=== PATIENT | male | born 1940 | race Caucasian/White ===

== ENCOUNTER → 2016-12-21 | Outpatient (CLI) | payer OTHER ==
[~2016-12-21] MED LIST: ASPCH81X PO; CHOL2000 PO; CLOP1TAB5 PO; CYAN100T PO; DUTA0.5C PO; GLIM4TAB2 PO; GLUC10007 PO; LEVO25TA PO; QUIN10TA2 PO; ROSU5TAB PO; TAMS0.4C38 PO; UBIQ1CAP8 PO
== END | disposition home or self-care (01) ==
LOC: C.LAB 11:26
PROVIDERS: ATTEND Urology
DX: C61 Malignant neoplasm of prostate (principal)

== ENCOUNTER → 2017-03-08 | Outpatient (CLI) | payer OTHER ==
[~2017-03-08] MED LIST changes: +CYAN1CAP3 PO; +DOXY50CA26 PEG; +FLUT0.15 NAE
[2017-03-08 12:55] LABS: ESTIMATED AVERAGE GLUCOSE 148 mg/dl; HA1C FLAG Normal (Normal)
[2017-03-08 13:07] LABS: CHOLESTEROL/HDL RATIO 6.1
== END | disposition home or self-care (01) ==
LOC: C.LAB 10:38
PROVIDERS: ATTEND Nurse Practitioner Adult Health
DX: E11.22 Type 2 diabetes mellitus with diabetic chronic kidney disease (principal)

== ENCOUNTER 2017-03-21 15:18 | Emergency (ER) | payer OTHER ==
[~2017-03-21] VITALS: Ht 180.3 cm; Wt 99.2 kg
[~2017-03-21 15:18] MED LIST changes: -CYAN100T PO; -CYAN1CAP3 PO; -DOXY50CA26 PEG; -FLUT0.15 NAE; -GLUC10007 PO; -ROSU5TAB PO
[2017-03-21 15:20] VITALS: TEMP 36.2; Ht 180.3 cm; Wt 99.2 kg
[2017-03-21] MEDS ORDERED: CYAN100T PO (15:36)
[2017-03-21] MEDS ORDERED: GLUC10007 PO (15:36)
[2017-03-21] MEDS ORDERED: ROSU5TAB PO (15:36)
--- NOTE | 2017-03-21 15:49 | EMERGENCY ROOM VISIT NOTE ---
History Report prepared by Kiki: Camelia Coyle Under the Supervision of: Dr. Adan Rueda M.D. 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 He stood up and lost his balance, causing him to fall backwards. He hit the back of his head on a cabinet when he fell and has a lump there. The patient is currently being treated for a sinus infection. He states that he was having a sinus headache before his fall today, but his headache has worsened after hitting his head. He does report feeling "a little weak" but did not eat much today. He is on blood thinners and takes Plavix and aspirin. The patient denies LOC, neck pain, chest pain, shortness of breath, abdominal pain, numbness, and pain or swelling in his legs. He denies any other injury from his fall today. He rates his current pain as a 1/10 in severity. 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 A total of 10 systems reviewed and were otherwise negative. Past Medical & Surgical Medical Problems: (1) Diabetes (2) Hemorrhagic cystitis (3) Hemorrhagic cystitis (4) Hemorrhagic cystitis (5) Hypercholesteremia (6) Prostate cancer (7) TIA (transient ischemic attack) Old medical records were reviewed. Nurse's notes were reviewed and I agree with. Family History FHx: cancer Social History Smoking Status: Former Smoker Marital Status: Housing Status: lives with family Occupation Status: retired Current/Historical Medications Scheduled Aspirin (Aspirin Chewable), 81 MG PO QAM Cholecalciferol (Vitamin D3), 2,000 INTER.UNIT PO QAM Clopidogrel Bisulfate (Plavix), 75 MG PO QPM Cyanocobalamin (Vitamin B-12), 100 MCG PO DAILY Dutasteride (Avodart), 0.5 MG PO HS Glimepiride (Glimepiride), 4 MG PO BID Glucosamine Sulfate (Glucosamine), 1,000 MG PO BID Levothyroxine Sodium (Synthroid), 25 MCG PO QAM Quinapril Hcl (Accupril), 10 MG PO QPM Rosuvastatin Calcium (Crestor), 5 MG PO WK Tamsulosin Hcl (Flomax), 0.4 MG PO HS Ubiquinol (Ubiquinol), 1 CAP PO QPM Allergies Coded Allergies: Penicillins (Verified Allergy, Mild, RASH, 03/21/17) Sulfa Drugs (Verified Allergy, Mild, RASH, 03/21/17) Simvastatin (Unverified Allergy, Unknown, MUSCLE WEAKNESS, 03/21/17) Statins (Verified Allergy, Unknown, MUSCLE WEAKNESS, 03/21/17) Rosuvastatin (Verified Adverse Reaction, Unknown, muscle and joint pain and foggy in my head, , 03/21/17) they changed the dose Physical Exam Vital Signs Date Time Temp Pulse Resp B/P Pulse Ox O2 Delivery O2 Flow Rate FiO2 03/21/17 16:41 66 18 153/67 99 Room Air 03/21/17 15:20 36.2 74 18 154/80 96 Room Air Physical Exam General: Well developed well nourished non-ill appearing older male in no acute distress, breathing comfortably on room air. Normal speech HEENT: Normal cephalic, there is a moderate sized hematoma in the central occipital area that is minimally tender. Pupils are equal round and reactive to light. Extraocular movements are intact. Oropharynx is pink with moist mucous membranes. No swelling of the mouth lips or tongue. Neck: Supple with a midline trachea. No meningeal signs or stiffness, no JVD or bruits. No Stridor. Chest: Clear to auscultation bilaterally. No wheezes or rhonchi. No increased work of breathing. Heart: regular rate and rhythm. Abdomen: Soft nontender, nondistended without rebound guarding or rigidity. Extremities: No cyanosis clubbing or edema. No calf tenderness or assymetry Spine/Back. Non tender to palpation. No CVA tenderness Skin: Good turgor without rashes. Neurologic exam: Cranial nerves two through 12 are intact. Motor and sensation are intact and symmetrical throughout. GCS 15. Medical Decision & Procedures ER Provider Diagnostic Interpretation: Radiology results as stated below per my review and radiologist interpretation: CT SCAN OF THE BRAIN WITHOUT IV CONTRAST CLINICAL HISTORY: Trauma. COMPARISON STUDY: MRI of the brain dated 12/21/2015. TECHNIQUE: Unenhanced axial CT scan of the brain is performed from the vertex to the skull base. CT DOSE: 823.94 mGycm FINDINGS: Brain parenchyma: There are age-related involutional changes noting mild subcortical and periventricular microangiopathic change. There is no hemorrhage, mass effect, or evidence of acute territorial ischemia by CT criteria. A tiny chronic lacunar infarct is noted in the right basal ganglia. Nathan-white matter is preserved. No extra-axial fluid collection is seen. Ventricles, sulci, cisterns: Prominent secondary to involutional change. Cavum septum pellucidum is incidentally noted. Intracranial vasculature: There is atherosclerotic calcification of the cavernous carotid and vertebral arteries. Calvarium: The skeletal structures are osteopenic. There is no depressed femoral fracture. Soft tissues: There is an occipital scalp contusion. Sinuses and mastoids: The visualized paranasal sinuses are clear. The mastoid air cells are well pneumatized. Orbits: The bony orbits are grossly intact. IMPRESSION: There is no hemorrhage, mass effect, or evidence of acute territorial ischemia by CT criteria. Electronically signed by: Gordy Dominguez M.D. 03/21/2017 4:30 PM Dictated Date/Time: 03/21/2017 4:[address] SCAN OF THE CERVICAL SPINE CLINICAL HISTORY: Head injury. Trauma. COMPARISON STUDY: No priors. TECHNIQUE: CT scan of the cervical spine is performed from the skull base to the upper thoracic spine. Images are reviewed in the axial, sagittal, and coronal planes. IV contrast was not administered for this examination. CT DOSE: 529.82 mGycm FINDINGS: Skeletal structures: The skeletal structures are osteopenic. There is no evidence of fracture or subluxation involving the cervical spine. Vertebral body height and alignment are maintained. The odontoid process and lateral masses are intact. The atlantoaxial articulation is preserved noting productive degenerative change. The spinous processes appear intact. Anterior osteophytes are seen throughout. Degenerative endplate sclerosis is noted at C6-C7. There is moderate multilevel cervical spondylosis. Uncovertebral and facet arthropathy contribute to neural foraminal narrowing at several levels. Intervertebral discs: There is advanced degenerative disc space narrowing seen at C6-C7. Only mild degenerative disc space narrowing is seen at the remaining cervical levels. Central canal: Small posterior disc osteophyte complexes at C3-C4, C4-C5, and C6-C7 may contribute to mild acquired compromise the central canal. Soft tissues: The prevertebral and paraspinous soft tissues are within normal limits. Atherosclerotic calcification is noted in the carotid bulbs. Calvarium: The visualized calvarium at the skull base appears intact. Brain parenchyma: Partially visualized brain parenchyma the skull base is within normal limits. Sinuses and mastoids: The visualized paranasal sinuses are clear. The mastoid air cells are well pneumatized. Lung apices: Clear as visualized. IMPRESSION: 1. There is no evidence of fracture or subluxation involving the cervical spine. 2. Osteopenia and spondylotic change as above. Electronically signed by: Gordy Dominguez M.D. 03/21/2017 4:22 PM Dictated Date/Time: 03/21/2017 4:19 PM Laboratory Results 03/21/17 15:49 Red Blood Count 4.16, Mean Corpuscular Volume 95.9, Mean Corpuscular Hemoglobin 32.7, Mean Corpuscular Hemoglobin Concent 34.1, Mean Platelet Volume 9.6, Neutrophils (%) (Auto) 71.0, Lymphocytes (%) (Auto) 13.4, Monocytes (%) (Auto) 13.7, Eosinophils (%) (Auto) 1.5, Basophils (%) (Auto) 0.2, Neutrophils # (Auto ) 7.11, Lymphocytes # (Auto) 1.34, Monocytes # (Auto) 1.37, Eosinophils # (Auto ) 0.15, Basophils # (Auto) 0.02 03/21/17 15:49 Test 03/21/17 15:49 03/21/17 15:52 White Blood Count 10.01 K/uL (4.8-10.8) Red Blood Count 4.16 M/uL (4.7-6.1) Hemoglobin 13.6 g/dL (14.0-18.0) Hematocrit 39.9 % (42-52) Mean Corpuscular Volume 95.9 fL (80-100) Mean Corpuscular Hemoglobin 32.7 pg (25-34) Mean Corpuscular Hemoglobin Concent 34.1 g/dl (32-36) Platelet Count 212 K/uL (130-400) Mean Platelet Volume 9.6 fL (7.4-10.4) Neutrophils (%) (Auto) 71.0 % Lymphocytes (%) (Auto) 13.4 % Monocytes (%) (Auto) 13.7 % Eosinophils (%) (Auto) 1.5 % Basophils (%) (Auto) 0.2 % Neutrophils # (Auto) 7.11 K/uL (1.4-6.5) Lymphocytes # (Auto) 1.34 K/uL (1.2-3.4) Monocytes # (Auto) 1.37 K/uL (0.11-0.59) Eosinophils # (Auto) 0.15 K/uL (0-0.5) Basophils # (Auto) 0.02 K/uL (0-0.2) RDW Standard Deviation 45.8 fL (36.4-46.3) RDW Coefficient of Variation 13.1 % (11.5-14.5) Immature Granulocyte % (Auto) 0.2 % Immature Granulocyte # (Auto) 0.02 K/uL (0.00-0.02) Prothrombin Time 10.3 SECONDS (9.0-12.0) Prothromb Time International Ratio 1.0 (0.9-1.1) Activated Partial Thromboplast Time 26.6 SECONDS (21.0-31.0) Partial Thromboplastin Ratio 1.0 Anion Gap 6.0 mmol/L (3-11) Est Creatinine Clear Calc Drug Dose 54.7 ml/min Estimated GFR () 56.6 Estimated GFR (Non- 48.8 BUN/Creatinine Ratio 18.7 (10-20) Calcium Level 8.9 mg/dl (8.5-10.1) Bedside Troponin I 0.000 ng/ml (0-0.045) Laboratory studies as stated above per my review. ECG Indication: weakness Rate (beats per minute): 67 Rhythm: normal sinus Findings: 1st degree AV block, RBBB (incomplete), other (Poor R-wave progression) Comparison ECG Date: no prior available ED Course 1530: Past medical records reviewed. The patient was evaluated in room C10, and a complete history and physical examination were performed. 1634: I updated the patient on the results of his CT scan. 1708: I reassessed the patient at this time. He is feeling better and resting comfortably. I discussed the results and treatment plan with the patient. I answered all pertaining questions that he had. He expressed understanding and verbalized agreement. The patient will be discharged home. Medical Decision Differential diagnoses includes concussion, intracranial hemorrhage, cervical spine injury, arrhythmia, electrolyte or metabolic abnormality. This patient comes in as described above. He fell dizzy and stumbled backwards after bending over and hit his head. He is concerned as he is on Plavix. He has only a mild headache. He looks well besides having some moderate hematoma, . He has no neurologic deficits. He has not been vomiting. IV access established and blood work was obtained and a CAT scan of his head and neck as well as an EKG. He was reassessed frequently. Scans were unremarkable. Blood work was unremarkable he looks well . he is able ambulate without any difficulty. He has a normal neurologic exam. He is to rest and drink plenty of fluids return if: Increasing pain or problems, any new problems or concerns. He was happy with the plan and discharged to home. He should follow up with his regular doctor next couple days for recheck. Impression Primary Impression: Concussion Additional Impression: Scalp contusion Scribe Attestation The scribe's documentation has been prepared under my direction and personally reviewed by me in its entirety. I confirm that the note above accurately reflects all work, treatment, procedures, and medical decision making performed by me. Departure Information Dispostion Home / Self-Care Referrals Dick Adams M.D. (PCP) Forms HOME CARE DOCUMENTATION FORM, IMPORTANT VISIT INFORMATION Patient Instructions Concussion, My [facility] Additional Instructions Rest. Drink plenty of fluids. Return if: Worsening of symptoms, headache, difficulty walking, numbness weakness, fever chills, any new problems or concerns Follow-up with your doctor next 1-2 days for recheck. Avoid any situations where you could hit your head Problem Qualifiers Primary Impression: Concussion Encounter type: initial encounter Loss of consciousness presence/duration: without LOC Qualified Codes: S06.0X0A - Concussion without loss of consciousness, initial encounter
--- NOTE | 2017-03-21 16:24 | DIAGNOSTIC IMAGING REPORT ---
CT SCAN OF THE CERVICAL SPINE CLINICAL HISTORY: Head injury. Trauma. COMPARISON STUDY: No priors. TECHNIQUE: CT scan of the cervical spine is performed from the skull base to the upper thoracic spine. Images are reviewed in the axial, sagittal, and coronal planes. IV contrast was not administered for this examination. CT DOSE: 529.82 mGycm FINDINGS: Skeletal structures: The skeletal structures are osteopenic. There is no evidence of fracture or subluxation involving the cervical spine. Vertebral body height and alignment are maintained. The odontoid process and lateral masses are intact. The atlantoaxial articulation is preserved noting productive degenerative change. The spinous processes appear intact. Anterior osteophytes are seen throughout. Degenerative endplate sclerosis is noted at C6-C7. There is moderate multilevel cervical spondylosis. Uncovertebral and facet arthropathy contribute to neural foraminal narrowing at several levels. Intervertebral discs: There is advanced degenerative disc space narrowing seen at C6-C7. Only mild degenerative disc space narrowing is seen at the remaining cervical levels. Central canal: Small posterior disc osteophyte complexes at C3-C4, C4-C5, and C6-C7 may contribute to mild acquired compromise the central canal. Soft tissues: The prevertebral and paraspinous soft tissues are within normal limits. Atherosclerotic calcification is noted in the carotid bulbs. Calvarium: The visualized calvarium at the skull base appears intact. Brain parenchyma: Partially visualized brain parenchyma the skull base is within normal limits. Sinuses and mastoids: The visualized paranasal sinuses are clear. The mastoid air cells are well pneumatized. Lung apices: Clear as visualized. IMPRESSION: 1. There is no evidence of fracture or subluxation involving the cervical spine. 2. Osteopenia and spondylotic change as above. Electronically signed by: Gordy Dominguez M.D. 03/21/2017 4:22 PM Dictated Date/Time: 03/21/2017 4:19 PM
--- NOTE | 2017-03-21 16:32 | DIAGNOSTIC IMAGING REPORT ---
CT SCAN OF THE BRAIN WITHOUT IV CONTRAST CLINICAL HISTORY: Trauma. COMPARISON STUDY: MRI of the brain dated 12/21/2015. TECHNIQUE: Unenhanced axial CT scan of the brain is performed from the vertex to the skull base. CT DOSE: 823.94 mGycm FINDINGS: Brain parenchyma: There are age-related involutional changes noting mild subcortical and periventricular microangiopathic change. There is no hemorrhage, mass effect, or evidence of acute territorial ischemia by CT criteria. A tiny chronic lacunar infarct is noted in the right basal ganglia. Nathan-white matter is preserved. No extra-axial fluid collection is seen. Ventricles, sulci, cisterns: Prominent secondary to involutional change. Cavum septum pellucidum is incidentally noted. Intracranial vasculature: There is atherosclerotic calcification of the cavernous carotid and vertebral arteries. Calvarium: The skeletal structures are osteopenic. There is no depressed femoral fracture. Soft tissues: There is an occipital scalp contusion. Sinuses and mastoids: The visualized paranasal sinuses are clear. The mastoid air cells are well pneumatized. Orbits: The bony orbits are grossly intact. IMPRESSION: There is no hemorrhage, mass effect, or evidence of acute territorial ischemia by CT criteria. Electronically signed by: Gordy Dominguez M.D. 03/21/2017 4:30 PM Dictated Date/Time: 03/21/2017 4:22 PM
[2017-03-21 16:41] VITALS: BP 153/67; PULSE 66; O2SAT 99
[2017-03-21 16:56] LABS: BASO % 0.2 %; BASO ABS # 0.02 K/uL (0-0.2); COMPLETE YES; EOS % 1.5 %; HEMATOCRIT 39.9 % (42-52); IG% 0.2 %; LYMPH % 13.4 %; LYMPH ABS # 1.34 K/uL (1.2-3.4); MEAN CELL VOLUME 95.9 fL (80-100); MEAN CORPUSCULAR HEMOGLOBIN 32.7 pg (25-34); MEAN CORPUSCULAR HGB CONC 34.1 g/dl (32-36); MEAN PLATELET VOLUME 9.6 fL (7.4-10.4); MONO % 13.7 %; PLATELET COUNT 212 K/uL (130-400); RED BLOOD COUNT 4.16 M/uL (4.7-6.1); WHITE BLOOD COUNT 10.01 K/uL (4.8-10.8)
[2017-03-21 17:02] LABS: BUN/CREATININE RATIO 18.7 (10-20); CALCIUM 8.9 mg/dl (8.5-10.1); CREATININE 1.4 mg/dl (0.60-1.40); POTASSIUM 4.4 mmol/L (3.5-5.1)
[2017-03-21 17:08] LABS: PROTHROMBIN TIME (PATIENT) 10.3 SECONDS (9.0-12.0)
[2017-09-18] MEDS ORDERED: DOXY50CA26 PEG (10:23)
[2017-09-18] MEDS ORDERED: CYAN1CAP3 PO (10:23)
[2017-09-18] MEDS ORDERED: FLUT0.15 NAE (10:23)
== END 2017-03-21 17:25 | disposition home or self-care (01) ==
LOC: C.EDB 15:19 → C.EDC 17:25
DX: S00.03XA Contusion of scalp, initial encounter (principal); S06.0X0A Concussion without loss of consciousness, initial encounter; W01.0XXA Fall on same level from slipping, tripping and stumbling without subsequent striking against object, initial encounter; E11.9 Type 2 diabetes mellitus without complications; E78.00 Pure hypercholesterolemia, unspecified; Z86.73 Personal history of transient ischemic attack (TIA), and cerebral infarction without residual deficits; Z85.46 Personal history of malignant neoplasm of prostate; Z87.891 Personal history of nicotine dependence; Z79.82 Long term (current) use of aspirin; Z79.899 Other long term (current) drug therapy; Z88.0 Allergy status to penicillin; Z88.2 Allergy status to sulfonamides; Z88.8 Allergy status to other drugs, medicaments and biological substances; Z80.9 Family history of malignant neoplasm, unspecified

== ENCOUNTER → 2017-05-01 | Outpatient (CLI) | payer OTHER ==
[~2017-05-01] MED LIST changes: +CYAN100T PO; +CYAN1CAP3 PO; +DOXY50CA26 PEG; +FLUT0.15 NAE; +GLUC10007 PO; +ROSU5TAB PO
--- NOTE | 2017-05-06 12:33 | CODING QUERY MEDICAL NECESSITY ---
SUPPORTING DIAGNOSIS NEEDED Dr. Adams, A supporting diagnosis is required for the test/procedure performed on this patient in order for us to be reimbursed by the patient's insurance. Please provide a supporting diagnosis for the following test/procedure listed below next to the test name along with your signature. *If there is no additional diagnosis for this patient that would support the following test/procedure please document that below next to the test/procedure. Test(s)/Procedure(s) that require a supporting diagnosis: * ([id number]) VITAMIN D ASSAY DIAGNOSIS: * ([id number]) B12 VITAMIN LEVEL DIAGNOSIS: DATE OF SERVICE: 05/01/17 Provider Signature: Date: Thank you Abel Fernandez [facility] Information Management Once completed, please kindly fax back to [phone] For questions please call [phone]
== END | disposition home or self-care (01) ==
LOC: C.LAB 09:39
PROVIDERS: ATTEND Internal Medicine
DX: R53.83 Other fatigue (principal); C61 Malignant neoplasm of prostate

== ENCOUNTER → 2017-06-11 | Outpatient (CLI) | payer OTHER ==
[~2017-06-11] MED LIST changes: -CYAN1CAP3 PO; -DOXY50CA26 PEG; -FLUT0.15 NAE
[2017-06-11 12:24] LABS: BASO % 0.4 %; BASO ABS # 0.02 K/uL (0-0.2); COMPLETE YES; EOS % 2.1 %; HEMATOCRIT 42.1 % (42-52); IG% 0.2 %; LYMPH % 25.9 %; LYMPH ABS # 1.35 K/uL (1.2-3.4); MEAN CORPUSCULAR HEMOGLOBIN 32.5 pg (25-34); MEAN CORPUSCULAR HGB CONC 34.2 g/dl (32-36); MEAN PLATELET VOLUME 9.7 fL (7.4-10.4); MONO % 14.6 %; NEUT % 56.8 %; PLATELET COUNT 209 K/uL (130-400); RED BLOOD COUNT 4.43 M/uL (4.7-6.1); WHITE BLOOD COUNT 5.22 K/uL (4.8-10.8)
[2017-06-11 12:44] LABS: ESTIMATED AVERAGE GLUCOSE 151 mg/dl; HA1C FLAG Normal (Normal)
[2017-06-11 12:54] LABS: ALT/SGPT 29 U/L (12-78); AST/SGOT 21 U/L (15-37); BLOOD UREA NITROGEN 29 mg/dl (7-18); BUN/CREATININE RATIO 19.5 (10-20); CALCIUM 8.8 mg/dl (8.5-10.1); CARBON DIOXIDE 25 mmol/L (21-32); CHLORIDE 107 mmol/L (98-107); CHOLESTEROL 233 mg/dl (0-200); GLUCOSE 124 mg/dl (70-99); SODIUM 140 mmol/L (136-145); TRIGLYCERIDES 243 mg/dl (0-150); VERY LOW DENSITY LIPOPROT CALC 49 mg/dl
[2017-06-11 13:04] LABS: HDL CHOLESTEROL 39 mg/dl; LDL CHOLESTEROL CALCULATED 145 mg/dl
== END | disposition home or self-care (01) ==
LOC: C.LAB 10:06
PROVIDERS: ATTEND Internal Medicine
DX: E78.00 Pure hypercholesterolemia, unspecified (principal); E11.22 Type 2 diabetes mellitus with diabetic chronic kidney disease; N18.3 Chronic kidney disease, stage 3 (moderate); E03.9 Hypothyroidism, unspecified

== ENCOUNTER → 2017-09-06 | Outpatient (CLI) | payer OTHER ==
[~2017-09-06] MED LIST changes: +CYAN1CAP3 PO; +DOXY50CA26 PEG; +FLUT0.15 NAE
[2017-09-06 12:23] LABS: HEMATOCRIT 40.4 % (42-52); MEAN CELL VOLUME 94.8 fL (80-100); MEAN CORPUSCULAR HEMOGLOBIN 33.6 pg (25-34); MEAN CORPUSCULAR HGB CONC 35.4 g/dl (32-36); MEAN PLATELET VOLUME 9.7 fL (7.4-10.4); PLATELET COUNT 190 K/uL (130-400); RED BLOOD COUNT 4.26 M/uL (4.7-6.1); WHITE BLOOD COUNT 5.33 K/uL (4.8-10.8)
[2017-09-06 12:30] LABS: PROTHROMBIN TIME (PATIENT) 10.4 SECONDS (9.0-12.0)
[2017-09-06 12:40] LABS: ALT/SGPT 33 U/L (12-78); AST/SGOT 23 U/L (15-37); BLOOD UREA NITROGEN 19 mg/dl (7-18); BUN/CREATININE RATIO 12.8 (10-20); CALCIUM 8.6 mg/dl (8.5-10.1); CARBON DIOXIDE 25 mmol/L (21-32); CHLORIDE 108 mmol/L (98-107); CREATININE 1.52 mg/dl (0.60-1.40); GLUCOSE 140 mg/dl (70-99); POTASSIUM 4.5 mmol/L (3.5-5.1); SODIUM 139 mmol/L (136-145)
[2017-09-06 12:52] LABS: ALB/GLOB RATIO 1.1 (0.9-2); ALKALINE PHOSPHATASE 92 U/L (45-117); CHOLESTEROL 240 mg/dl (0-200); CHOLESTEROL/HDL RATIO 5.6; HDL CHOLESTEROL 43 mg/dl; LDL CHOLESTEROL CALCULATED 157 mg/dl; PROSTATE SPECIFIC ANTIGEN 0.637 ng/ml (0.000-4.000); TRIGLYCERIDES 201 mg/dl (0-150); VERY LOW DENSITY LIPOPROT CALC 40 mg/dl
[2017-09-06 13:58] LABS: ESTIMATED AVERAGE GLUCOSE 146 mg/dl; HA1C FLAG Normal (Normal)
== END | disposition home or self-care (01) ==
LOC: C.LAB 09:52
PROVIDERS: ATTEND Orthopaedic Surgery Sports Medicine
DX: Z01.818 Encounter for other preprocedural examination (principal); E78.00 Pure hypercholesterolemia, unspecified; N18.3 Chronic kidney disease, stage 3 (moderate); E55.9 Vitamin D deficiency, unspecified; E03.9 Hypothyroidism, unspecified; E11.22 Type 2 diabetes mellitus with diabetic chronic kidney disease; C61 Malignant neoplasm of prostate

== ENCOUNTER 2017-12-17 06:21 | Inpatient (IN) | payer OTHER ==
[2017-09-18 09:36] VITALS: BMI 29.0
--- NOTE | 2017-09-18 10:42 | PAT Medication Instructions ---
Service Date Sep 18, 2017. Current Home Medication List Aspirin (Aspirin Chewable), 81 MG PO QAM Cholecalciferol (Vitamin D3), 2,000 INTER.UNIT PO BID Clopidogrel Bisulfate (Plavix), 75 MG PO QPM Cyanocobalamin (B-12), 1 CAP PO QPM Doxycycline (Monohydrate) (Doxycycline), 1 TAB PEG 1200 Dutasteride (Avodart), 0.5 MG PO HS Fluticasone Propionate (Nasal) (Flonase Allergy Relief), 1 SPRAY LILA QAM Glimepiride (Glimepiride), 4 MG PO BID Glucosamine Sulfate (Glucosamine), 1,000 MG PO BID Levothyroxine Sodium (Synthroid), 25 MCG PO QAM Quinapril Hcl (Accupril), 10 MG PO QPM Rosuvastatin Calcium (Crestor), 5 MG PO WK Tamsulosin Hcl (Flomax), 0.4 MG PO HS Ubiquinol (Ubiquinol), 1 CAP PO QPM Medication Instructions For Your Scheduled Surgery - Check with surgeon and prescribing physician for instructions: Clopidogrel Bisulfate (Plavix), 75 MG PO QPM - Hold the following medications 7-10 days prior to surgery: Glucosamine Sulfate (Glucosamine), 1,000 MG PO BID Ubiquinol (Ubiquinol), 1 CAP PO QPM - Hold the following medications 48 hours prior to surgery: Quinapril Hcl (Accupril), 10 MG PO QPM - Hold the following medications the morning of surgery: Cholecalciferol (Vitamin D3), 2,000 INTER.UNIT PO BID Rosuvastatin Calcium (Crestor), 5 MG PO WK Glimepiride (Glimepiride), 4 MG PO BID - Take the following medications the morning of surgery with a sip of water: Aspirin (Aspirin Chewable), 81 MG PO QAM (okay to continue per surgeon) Doxycycline (Monohydrate) (Doxycycline), 1 TAB PEG 1200 Fluticasone Propionate (Nasal) (Flonase Allergy Relief), 1 SPRAY LILA QAM Levothyroxine Sodium (Synthroid), 25 MCG PO QAM - Take the following medications as scheduled the night before surgery: Cyanocobalamin (B-12), 1 CAP PO QPM Cholecalciferol (Vitamin D3), 2,000 INTER.UNIT PO BID Dutasteride (Avodart), 0.5 MG PO HS Tamsulosin Hcl (Flomax), 0.4 MG PO HS Glimepiride (Glimepiride), 4 MG PO BID If you have any questions please call us at [phone] or [phone] or [phone]
--- NOTE | 2017-09-18 11:44 | DIAGNOSTIC IMAGING REPORT ---
TWO VIEW CHEST CLINICAL HISTORY: Preoperative examination. FINDINGS: PA and lateral chest radiographs are obtained. No prior studies are available for comparison at the time of dictation. The cardiomediastinal silhouette is unremarkable. There is atherosclerotic calcification of the thoracic aorta. There is elevation of right hemidiaphragm with mild right basilar atelectasis. The lungs and pleural spaces are otherwise clear. There is no pneumothorax. The skeletal structures are osteopenic. The bony thorax appears intact. Cholecystotomy clips are seen in the right upper quadrant. IMPRESSION: 1. No active disease in the chest. 2. Mild elevation of the right hemidiaphragm is incidentally noted. Electronically signed by: Gordy Dominguez M.D. 09/18/2017 11:43 AM Dictated Date/Time: 09/18/2017 11:42 AM
[2017-11-12 08:27] VITALS: BMI 28.0
[2017-12-10 14:33] LABS: BASO % 0.3 %; BASO ABS # 0.02 K/uL (0-0.2); EOS % 1.3 %; HEMATOCRIT 39.4 % (42-52); HEMOGLOBIN 13.5 g/dL (14.0-18.0); IG# 0.01 K/uL (0.00-0.02); LYMPH % 18.9 %; MEAN CELL VOLUME 96.8 fL (80-100); MEAN CORPUSCULAR HEMOGLOBIN 33.2 pg (25-34); MEAN CORPUSCULAR HGB CONC 34.3 g/dl (32-36); MEAN PLATELET VOLUME 9.7 fL (7.4-10.4); MONO % 15.2 %; MONO ABS # 1.13 K/uL (0.11-0.59); NEUT % 64.2 %; NEUT ABS # 4.75 K/uL (1.4-6.5); PLATELET COUNT 182 K/uL (130-400); RED CELL DISTRIBUTION WIDTH CV 13.4 % (11.5-14.5); RED CELL DISTRIBUTION WIDTH SD 47.2 fL (36.4-46.3); WHITE BLOOD COUNT 7.41 K/uL (4.8-10.8)
[2017-12-10 14:47] LABS: PTT PATIENT 24.5 SECONDS (21.0-31.0)
[2017-12-10 14:58] LABS: CALCIUM 8.8 mg/dl (8.5-10.1); CREATININE 1.52 mg/dl (0.60-1.40); POTASSIUM 4.1 mmol/L (3.5-5.1)
--- NOTE | 2017-12-13 07:58 | HISTORY & PHYSICAL EXAMINATION ---
DATE OF ADMISSION: 12/17/2017 CHIEF COMPLAINT: Right knee pain. HISTORY OF PRESENT ILLNESS: This is a 77-year-old gentleman who presents for surgical treatment of his right knee. He has had a long history of right knee pain and discomfort. This has gradually gotten worse over time. He most recently had viscosupplementation which really only helped him for a couple weeks at best. Pain has become more debilitating. The more he walks, the more it hurts. It is pretty global pain in his knee. He has nighttime discomfort. He is limited in his activities and would like to have his right knee fixed. PAST MEDICAL HISTORY: 1. Elevated cholesterol. 2. History of TIA 10 plus years ago with some slight left lower extremity weakness. 3. Parkinson symptoms. 4. Diabetes. 5. Hypothyroidism. 6. Low back pain, spinal stenosis. Status post previous surgery. 7. Gastroesophageal reflux disease. 8. Hiatal hernia 9. Mild obesity. PAST SURGICAL HISTORY: Include: 1. Abdominal hernia surgery. 2. Tonsillectomy. 3. Bladder surgery. 4. L5 lumbar spine surgery. 5. Prostate surgery. ALLERGIES: PENICILLIN WHICH CAUSE HIVES. ALSO, DESCRIBES ALLERGIES TO SULFA AND POLLEN AND GLUTEN. CURRENT MEDICINES: 1. Glimepiride 4 mg twice a day. 2. Plavix 75 mg a day. 3. Quinapril 10 mg a day. 4. Levothyroxine 25 mcg a day. 5. Dutasteride 0.5 mg a day. 6. Tamsulosin 0.4 mg daily. 7. Aspirin 81 mg a day. 8. Vitamin D3. 9. Ubiquinol 100 mg in the evening. 10. Vitamin B12 1000 mg in evening. 11. Doxycycline. SOCIAL HISTORY: A 77-year-old male. He is . He does not smoke. FAMILY HISTORY: Negative for diabetes, heart disease or blood clots. REVIEW OF SYSTEMS: Significant for TIA with some slight lower extremity weakness. Denies any current chest pain or shortness of breath. No history of DVT or PE. He is diabetic with a hemoglobin A1c of 6.7. PHYSICAL EXAMINATION: GENERAL: Reveals a pleasant elderly male. He looks to be in reasonably good health. HEENT: Benign. NECK: Supple. No lymphadenopathy. LUNGS: Clear to auscultation. HEART: Has regular rate and rhythm. ABDOMEN: Soft, nontender, nondistended. EXTREMITIES: Grossly neurovascularly intact except as follows: Examination of the right leg reveals the patient walks with a slight bit of a limp. He has varus alignment to his knee. He has bony hypertrophy medially. Small knee effusion. Range of motion 5-120. No instability. X-RAYS: X-rays of the right knee reviewed. It shows advanced right knee DJD. He has complete loss of his medial joint space. He has osteophytes off the medial femoral condyle and medial tibial plateau. ASSESSMENT: A 77-year-old male with a history of diabetes and transient ischemic attack in the past with advanced right knee degenerative joint disease. He has failed conservative treatment and would like to have his right knee replaced. PLAN: We will take him to the operating room and do a right total knee replacement. The risks and benefits of this procedure were explained to the patient including but not limited to DVT, PE, , infection, neurological injury, vascular injury, bleeding problem, pain, limited range of motion, stiffness, failure to relieve her symptoms, incomplete relief of symptoms, need for further surgery in the future, fracture, leg length inequality, nerve palsy, persistent pain, etc. The patient understands and desires to proceed. Informed consent was obtained. He is on Plavix and is to stop that 7 days preop. Hold the quinapril the morning of surgery. He has reaction to penicillin but it is not a true allergy and will give him Ancef preoperatively. Will have to be on a gluten-free diet in the hospital. He is hoping to be discharged to home using [facility] once stable.
[~2017-12-17] VITALS: Ht 182.9 cm; Wt 95.0 kg
[2017-12-17] VITALS (10 sets, daily range): BP systolic 150–187; BP diastolic 72–84; PULSE 51–74; TEMP 36.4–36.8; O2SAT 97–100; Ht 182.9 cm; Wt 95.0 kg
[~2017-12-17 06:21] MED LIST changes: +ACETAMINOPHEN 500 MG TAB PO SCH; -ASPCH81X PO; +ASPI-461 PO; +BUPIVACAINE LIPOSOME 266 MG, BUPIVACAINE/EPINEPHRINE INJ 50 ML, SODIUM CHLORIDE 0.9% PF... INFIL SCH; +CEFAZOLIN 2000MG IV PUSH 15 ML IV SCH; -CYAN100T PO; -DOXY50CA26 PEG; +DOXY50CA26 PO; +FAMOTIDINE 20 MG TAB PO SCH; +GABAPENTIN 300 MG CAP PO SCH; +LACTATED RINGER'S 1000ML 1,000 ML IV SCH; +LACTATED RINGER'S 1000ML 500 ML IV SCH; +LACTATED RINGER'S 1000ML IV SCH; +METOCLOPRAMIDE HCL 10 MG TAB PO SCH; +PSYL0.524 PO; +SCOPOLAMINE 1.5 MG TDSY TD SCH; +TERB1CRE41 TOP; +TRANEXAMIC ACID INJ 1,000 MG in SYRINGE 0 ML IV SCH; +VNTHFA/IN INH
[2017-12-17] MEDS ORDERED: BUPIVACAINE 0.5 % 5 MG/1 ML PF 10ML VIAL ONE (06:37)
[2017-12-17] MEDS ORDERED: ROPIVACAINE 0.5% 5 MG/ML 30 ML VIAL ONE (06:37)
--- NOTE | 2017-12-17 06:49 | History & Physical Bridge Note ---
H&P Re-Evaluation Bridge Note: I have examined the patient, reviewed the History & Physical and in the interval since the performance of the History & Physical I have noted the following changes of clinical significance: No changes noted
[2017-12-17] MEDS ORDERED: EpHEDrine SULFATE INJ 50 MG/ML AMP IV PRN (08:00)
[2017-12-17] MEDS ORDERED: HYDROmorphone INJ 2 MG/ML SYR/VIAL IV PRN (08:00)
[2017-12-17] MEDS ORDERED: PHENYLEPHRINE 100MCG/ML 5ML SYR IV PRN (08:00)
[2017-12-17] MEDS ORDERED: ATROPINE SULFATE 0.1 MG/ML 5ML SYR IV PRN (08:00)
[2017-12-17] MEDS ORDERED: ONDANSETRON INJ 2 MG/ML 2 ML VIAL IV PRN ×2 (08:00→11:00)
[2017-12-17] MEDS ORDERED: MIDAZOLAM HCL 1 MG/ML 2ML VIAL ONE ×2 (08:13)
[2017-12-17] MEDS ORDERED: SODIUM CHLORIDE 0.9% PF 50 ML VIAL ONE (08:44)
[2017-12-17] MEDS ORDERED: BUPIVACAINE/EPINEPHRINE 0.25% 1:200,000 30 ML VIAL ONE (08:44)
[2017-12-17] MEDS ORDERED: BACITRACIN 50000 UNIT VIAL ONE (08:44)
[2017-12-17] MEDS ORDERED: BUPIVACAINE LIPOSOME 1/3% 266 MG/20 ML VIAL INFIL ONE (08:45)
[2017-12-17] MEDS ORDERED: LIDOCAINE HCL 2% 2 ML VIAL (20MG/ML) ONE (09:29)
[2017-12-17] MEDS ORDERED: PROPOFOL IV EMULSION 10 MG/ML 20 ML VIAL IV ONE (09:29)
--- NOTE | 2017-12-17 10:46 | [facility] Post Operative Brief Note ---
Immediate Operative Summary Operative Date Dec 17, 2017. Pre-Operative Diagnosis Right Knee Degenerative Joint Disease Post-Operative Diagnosis Same as preop Procedure(s) Performed Right Total Knee Arthroplasty Surgeon Dr. Parish [employer] Surgeon(s) Kapil Atkins PA-C Estimated Blood Loss 50 ml Findings Consistent with Post-Op Diagnosis Fluids (cc crystalloids) 1200 cc Specimens A. Right Knee Bone and Tissue Drains None Anesthesia Type MAC Spinal Regional Complication(s) none Disposition Accompanied Pt To Recover: no Disposition: Recovery Room / PACU
[2017-12-17] MEDS ORDERED: GLUCAGON FOR INJ 1 MG VIAL SQ PRN (11:00)
[2017-12-17] MEDS ORDERED: HYDROmorphone INJ 0.5 MG/0.5 ML SYR IV PRN (11:00)
[2017-12-17] MEDS ORDERED: ALBUTEROL HFA 8 GM INHALER INH PRN (11:00)
[2017-12-17] MEDS ORDERED: DEXTROSE 50% 50 ML SYR IV PRN (11:00)
[2017-12-17] MEDS ORDERED: METOCLOPRAMIDE HCL INJ 5 MG/ML 2 ML VIAL IV PRN (11:00)
[2017-12-17] MEDS ORDERED: BISACODYL 10 MG SUPP PR PRN (11:00)
[2017-12-17] MEDS ORDERED: NO NSAIDS SCH (11:00)
[2017-12-17] MEDS ORDERED: MAGNESIUM HYDROXIDE SUSP 30 ML UDC PO PRN (11:00)
[2017-12-17] MEDS ORDERED: GLUCOSE 10 TABS/TUBE PO PRN (11:00)
[2017-12-17] MEDS ORDERED: ALUMINUM/MAGNESIUM/SIMETH (MAALOX MAX) 30 ML UDC PO PRN (11:00)
[2017-12-17] MEDS ORDERED: GLUCOSE 40% GEL 15 GM TUBE PO PRN (11:00)
[2017-12-17] MEDS ORDERED: ZOLPIDEM TARTRATE 5 MG TAB PO PRN (11:00)
--- NOTE | 2017-12-17 11:10 | DIAGNOSTIC IMAGING REPORT ---
R KNEE 1 OR 2 VIEWS ROUTINE CLINICAL HISTORY: Postoperative evaluation. COMPARISON: Right knee radiographs September 20, 2015. FINDINGS: Alignment of the total right knee arthroplasty is anatomic. There is no fracture or unexpected radiopaque foreign body. Skin felice are present. IMPRESSION: Expected findings following total right knee arthroplasty. Electronically signed by: Santi Faustin M.D. 12/17/2017 11:09 AM Dictated Date/Time: 12/17/2017 11:08 AM
--- NOTE | 2017-12-17 11:31 | Anesthesiology Progress Note ---
Anesthesia Post Op Note Date & Time Dec 17, 2017 at 11:31 Vital Signs Pain Intensity: 0 Vital Signs Past 12 Hours Date Time Temp Pulse Resp B/P (MAP) Pulse Ox O2 Delivery O2 Flow Rate FiO2 12/17/17 11:25 36.2 62 16 152/68 98 Nasal Cannula 2 12/17/17 11:20 62 16 152/66 97 Nasal Cannula 2 12/17/17 11:10 58 14 160/73 97 Nasal Cannula 2 12/17/17 11:00 60 14 170/71 95 Nasal Cannula 2 12/17/17 10:50 36.4 69 14 162/76 97 Nasal Cannula 2 12/17/17 07:08 36.5 71 18 176/83 98 Room Air Notes Mental Status: alert / awake / arousable, participated in evaluation Pt Amnestic to Procedure: Yes Nausea / Vomiting: adequately controlled Pain: adequately controlled Airway Patency, RR, SpO2: stable & adequate BP & HR: stable & adequate Hydration State: stable & adequate Anesthetic Complications: no major complications apparent
[2017-12-17] MEDS: AVODART: ORDER AWAITING ACTION SCH ×3 (13:00→23:30)
[2017-12-17] MEDS: FERROUS GLUCONATE 324 MG TAB PO SCH ×2 (13:17→17:45)
[2017-12-17] MEDS: SODIUM CHLORIDE 0.9% 1000ML 1,000 ML IV SCH ×2 (13:17→23:33)
[2017-12-17] MEDS ORDERED: FLUTICASONE PROPIONATE NA SPR 16 GM BTL SCH (13:30)
--- NOTE | 2017-12-17 13:35 | Medical Consult ---
Consultation Date of Consultation: Dec 17, 2017. Attending Physician: Ochoa Parish M.D. Reason for Consultation: post-op med management of T2DM, HTN, etc History of Present Illness Pleasant 77yo male with h/o T2DM, HTN, parkinsonism, BPH, remote TIA, and hypothyroidism who underwent elective right TKR earlier today by Dr. Ochoa Parish. I saw the patient post-op on the orthopedic floor. He apparently had transient double vision after arriving to the floor but this has resolved. His family also mentions he was "acting high" after arriving to the floor. This has improved. He may have also had brief visual disturbance with seeing "teeth on his daughter 's face." Family confirms he has mild cognitive impairment/memory difficulties at home at baseline. Denies any chest pain, dyspnea, abd pain. Just finished lunch w/o incident. Past Medical/Surgical History PAST MEDICAL HISTORY: 1. T2DM. 2. History of TIA on plavix for secondary prevention. 3. Parkinsonism. 4. HTN. 5. Hypothyroidism. 6. Lumbar spinal stenosis. 7. Gastroesophageal reflux disease. 8. Hiatal hernia. 9. suspected mild cognitive impairment. 10. BPH. 11. Mild COPD per . 12. hyperlipidemia. PAST SURGICAL HISTORY: 1. Abdominal hernia surgery. 2. Tonsillectomy. 3. Bladder surgery. 4. L5 lumbar spine surgery. 5. Prostate surgery. 6. Cholecystectomy. 7. Right TKR. 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52 Gm Cap 1 Dose PO HS 11/12/17 Reported Ventolin Hfa (Albuterol) 200 Puffs/85369 Mcg Aers 2 Puffs INH Q6H PRN 11/12/17 Reported Aspirin 81 Mg Tab 81 Tab PO QAM 11/12/17 Reported Flonase Allergy Relief (Fluticasone Propionate (Nasal)) 50 Mcg/Act Spr 1 [place] LILA QAM 09/18/17 Reported Doxycycline (Doxycycline (Monohydrate)) 50 Mg Cap 1 Tab PO 1200 09/18/17 Reported B-12 (Cyanocobalamin) 1,000 Mcg Cap 1 Cap PO QPM 09/18/17 Reported Glucosamine (Glucosamine Sulfate) 1,000 Mg Tab 1,000 Mg PO BID 03/21/17 Reported Crestor (Rosuvastatin Calcium) 5 Mg Tab 5 Mg PO 2XWK 03/21/17 Reported TAKE ONE TABLET EVERY SATURDAY & SATURDAY UNTIL FURTHER INSTRUCTED Ubiquinol 100 Mg Cap 1 Cap PO QPM 06/13/16 Reported Vitamin D3 (Cholecalciferol) 2,000 Unit Cap 2,000 Inter.unit PO BID 06/13/16 Reported Flomax (Tamsulosin Hcl) 0.4 Mg Cap 0.4 Mg PO HS 06/13/16 Reported Avodart (Dutasteride) 0.5 Mg Cap 0.5 Mg PO HS 06/13/16 Reported Synthroid (Levothyroxine Sodium) 25 Mcg Tab 25 Mcg PO QAM 06/13/16 Reported Accupril (Quinapril Hcl) 10 Mg Tab 10 Mg PO QPM 06/13/16 Reported Glimepiride 4 Mg Tab 4 Mg PO BID 05/16/16 Reported Plavix (Clopidogrel Bisulfate) 75 Mg Tab 75 Mg PO QPM 07/29/13 Reported TO STOP 7 DAYS PRIOR TO SURGERY PER SURGEON Current Inpatient Medications Current Inpatient Medications Medications (Trade) Dose Ordered Sig/Jose L Route Start Time Stop Time Status Last Admin Dose Admin Lactated Ringer's 1,000 ml @ 60 mls/hr [id number] IV 12/17/17 06:00 12/17/17 22:39 Acetaminophen (Tylenol Tab) 1,000 mg PREOP PO 12/17/17 06:00 12/17/17 18:00 12/17/17 07:21 1,000 MG Bupivacaine Liposome 266 mg/ Bupivacaine HCl/ Epinephrine Bitart 50 ml/ Sodium Chloride 30 ml/Syringe 100 ml @ 0 mls/hr 06 INFIL 12/17/17 06:00 12/17/17 18:00 12/17/17 10:24 100 MLS/HR Famotidine (Pepcid Tab) 20 mg PREOP PO 12/17/17 06:00 12/17/17 18:00 12/17/17 07:20 20 MG Gabapentin (Neurontin Cap) 300 mg PREOP PO 12/17/17 06:00 12/17/17 18:00 12/17/17 07:20 300 MG Metoclopramide HCl (Reglan Tab) 10 mg PREOP PO 12/17/17 06:00 12/17/17 18:00 12/17/17 07:20 10 MG Scopolamine (Transderm-Scop Patch) 1.5 mg PREOP TD 12/17/17 06:00 12/17/17 15:00 12/17/17 07:22 1.5 MG Miscellaneous (Remove Transderm-Scop Patch) 1 ea Q72H N/A 12/20/17 06:00 12/20/17 06:01 Miscellaneous Information (Check Scopolamine Patch Placement) 1 ea QS N/A 12/17/17 16:00 12/20/17 05:59 Lactated Ringer's 1,000 ml @ 15 mls/hr Q24H IV 12/17/17 06:00 12/18/17 05:59 12/17/17 07:01 15 MLS/HR Cefazolin Sodium 15 ml @ 3.75 mls/ min PREOP IV 12/17/17 06:00 12/17/17 18:00 12/17/17 09:00 3.75 MLS/MIN Sodium Chloride 1,000 ml @ 100 mls/hr Q10H IV 12/17/17 10:46 12/18/17 10:45 Cefazolin Sodium 2000 mg/Syringe 15 ml @ 3.75 mls/ min Q8H IV 12/17/17 17:00 12/18/17 01:03 Miscellaneous Medication (No Nsaids) 1 ea UD N/A 12/17/17 11:00 01/16/18 10:59 Acetaminophen (Tylenol Tab) 1,000 mg Q8H PO 12/17/17 16:00 01/16/18 15:59 Magnesium Hydroxide (Milk Of Magnesia Susp) 30 ml Q6H PRN PO 12/17/17 11:00 01/16/18 10:59 Bisacodyl (Dulcolax Supp) 10 mg DAILY PRN NC 12/17/17 11:00 01/16/18 10:59 Senna (Senokot Tab) 17.2 mg HS PO 12/17/17 21:00 01/16/18 20:59 Docusate Sodium (coLACE CAP) 100 mg BID PO 12/17/17 21:00 01/16/18 20:59 Al Hydrox/Mg Hydrox/Simethicone (Maalox Max Susp) 15 ml Q4H PRN PO 12/17/17 11:00 01/16/18 10:59 Zolpidem Tartrate (Ambien Tab) 5 mg HSZ PRN PO 12/17/17 11:00 01/16/18 10:59 Multivitamins (Multivitamin Tab) 1 tab QAM PO 12/18/17 09:00 01/17/18 08:59 Ondansetron HCl (Zofran Inj) 4 mg Q6H PRN IV 12/17/17 11:00 01/16/18 10:59 Metoclopramide HCl (Reglan Inj) 10 mg Q6H PRN IV 12/17/17 11:00 01/16/18 10:59 Ferrous Gluconate (Ferrous Gluconate Tab) 324 mg TIDM PO 12/17/17 12:30 01/16/18 12:29 Pantoprazole Sodium (Protonix Tab) 40 mg QAM PO 12/18/17 09:00 12/22/17 08:59 Tramadol HCl (Ultram Tab) 1 tablet for pain rating... Q4H PRN PO 12/17/17 11:00 01/16/18 10:59 Tranexamic Acid 1000 mg/Sodium Chloride 110 ml @ 660 mls/hr Q6H IV 12/17/17 17:00 12/17/17 17:09 Albuterol (Ventolin Hfa Inhaler) 2 puffs Q6H PRN INH 12/17/17 11:00 01/16/18 10:59 Aspirin (Ecotrin Tab) 81 mg QAM PO 12/18/17 09:00 01/17/18 08:59 Clopidogrel Bisulfate (plAVix TAB) 75 mg QPM PO 12/17/17 21:00 01/16/18 20:59 Fluticasone Propionate (Flonase Nasal [place]) 2 sprays QAM LILA 12/18/17 09:00 01/17/18 08:59 Levothyroxine Sodium (Synthroid Tab) 25 mcg DAILYBB PO 12/18/17 06:00 01/17/18 05:59 Rosuvastatin Calcium (Crestor Tab) 5 mg DAILY PO 12/18/17 09:00 01/17/18 08:59 Tamsulosin HCl (Flomax Cap) 0.4 mg HS PO 12/17/17 21:00 01/16/18 20:59 Cholecalciferol (Vitamin D Tab) 2,000 inter.unit BID PO 12/17/17 21:00 01/16/18 20:59 Cyanocobalamin (Vitamin B-12 Tab) 1,000 mcg QPM PO 12/17/17 21:00 01/16/18 20:59 Miscellaneous Information (Order Awaiting Action) 1 ea QS N/A 12/17/17 16:00 01/16/18 15:59 Miscellaneous Information (Order Awaiting Action) 1 ea QS N/A 12/17/17 13:00 01/16/18 12:59 Glimepiride (Amaryl Tab) 4 mg BID PO 12/17/17 21:00 01/16/18 20:59 Psyllium Hydrophilic Mucilloid (Metamucil Powder) 1 pkt HS PO 12/17/17 21:00 01/16/18 20:59 Quinapril HCl (Accupril Tab) 10 mg QPM PO 12/17/17 21:00 01/16/18 20:59 Hydromorphone HCl (Dilaudid Inj) 0.5 mg Q1H PRN IV 12/17/17 11:00 12/31/17 10:59 Insulin Human Regular (novoLIN-R) SLIDING SCALE ACHS SC 12/17/17 17:15 3/1/18 17:14 Glucose (Glucose 40% Gel) 15-30 GRAMS 15 GRAMS... UD PRN PO 12/17/17 11:00 01/16/18 10:59 Glucose (Glucose Chew Tab) 4-8 Tablets 4 Tabl... UD PRN PO 12/17/17 11:00 01/16/18 10:59 Dextrose (Dextrose 50% 50ML Syringe) 25-50ML OF 50% DW IV FOR... UD PRN IV 12/17/17 11:00 01/16/18 10:59 Glucagon (Glucagon Inj) 1 mg UD PRN SQ 12/17/17 11:00 01/16/18 10:59 Review of Systems Constitutional: No fever, No chills, No sweats, No weight loss, No weakness, No fatigue Eyes: + diplopia, + problem reported (visual disturbance - post-op) ENT: + nasal symptoms (allergies - chronic), No sore throat, No trouble swallowing Respiratory: No cough, No sputum, No wheezing, No shortness of breath, No dyspnea on exertion Cardiovascular: + edema (right ankle - chronic), No chest pain, No orthopnea, No PND, No palpitations Abdomen: No pain, No nausea, No vomiting, No diarrhea, No GI bleeding Genitourinary - Male: No hematuria, No dysuria Neurologic: + memory loss, No paralysis, No weakness, No numbness/tingling, No vertigo, No balance problems Psychiatric: No depression symptoms, No anxiety Endocrine: No fatigue Hematologic / Lymphatic: No abnormal bleeding/bruising Integumentary: No rash Physical Exam Date Time Temp Pulse Resp B/P (MAP) Pulse Ox O2 Delivery O2 Flow Rate FiO2 12/17/17 12:40 59 18 184/74 (110) 100 Nasal Cannula 3.0 12/17/17 12:10 51 18 157/82 (107) 99 12/17/17 11:40 Nasal Cannula 2.0 12/17/17 11:40 36.5 57 16 150/78 (102) 100 Nasal Cannula 2.0 12/17/17 11:25 36.2 62 16 152/68 98 Nasal Cannula 2 12/17/17 11:20 62 16 152/66 97 Nasal Cannula 2 12/17/17 11:10 58 14 160/73 97 Nasal Cannula 2 12/17/17 11:00 60 14 170/71 95 Nasal Cannula 2 12/17/17 10:50 36.4 69 14 162/76 97 Nasal Cannula 2 12/17/17 07:08 36.5 71 18 176/83 98 Room Air General Appearance: WD/WN, no apparent distress, + pertinent finding (flat affect/"masked facies") Head: normocephalic, atraumatic Eyes: PERRL, EOMI (no nystagmus or extraocular palsy), sclerae normal ENT: pharynx normal Neck: supple, no adenopathy, thyroid normal, no JVD, no carotid bruits Respiratory/Chest: lungs clear, no respiratory distress, no accessory muscle use Cardiovascular: regular rate, rhythm, no gallop, normal peripheral pulses, + systolic murmur (11/23 RUSB) Abdomen/GI: normal bowel sounds, non tender, soft, no organomegaly Back: normal inspection Extremities/Musculoskelatal: no pedal edema, + pertinent finding (right knee in large ZENAIDA wrap; ice pack in place; left leg w/o edema, pulses both feet 2+) Neurologic/Psych: no motor/sensory deficits, alert, normal mood/affect, normal reflexes, oriented x 3, + pertinent finding (extraocular muscles full/no palsy; finger/nose/finger maneuver without dysmetria b/l upper extremities ) Laboratory Results Last 24 Hours Test 12/17/17 06:40 12/17/17 10:56 12/17/17 12:04 Bedside Glucose 165 mg/dl 150 mg/dl 161 mg/dl Assessment & Plan 77yo male with h/o T2DM, HTN, BPH, hypothyroidism, parkinsonism, probable mild cognitive impairment, and TIA - s/p elective right TKR earlier today. Post-op he had transient diplopia and transient visual disturbance. He is a rather poor historian with respect to these symptoms and I could not elicit how long he had them. However, it sounds as if the symptoms were very brief. His neurological exam including cranial nerves during my assessment were normal. I am unclear if some of the symptoms were actually due to toxic encephalopathy from the anesthesia. 1. diplopia/visual disturbance - resolved. See discussion above. If symptoms recur he would need work-up for perioperative stroke. Continue plavix for secondary stroke/TIA prevention. 2. HTN - resume all home medications. Check BMP to ensure stability of creatinine post-op. 3. BPH - continue alpha kelsey and avodart, watch for urinary retention once hollins is d/c. 4. T2DM - hold amaryl while hospitalized. Use novolog in eric of novolin-R. Use correction factor of 30 with carb ratio of 1:10. Adjust as needed. Add basal if necessary. 5. hypothyroidism - cont synthroid. TSH fall of 2017 was wnl. 6. h/o parkinsonism - noted. 7. mild memory issues/probable mild cognitive impairment at home - makes him more susceptible to hospital psychosis. Avoid benzos, ambient, sleep aids, etc. 8. DVT proph - per orthopedics. 9. question of COPD (per ) - no pulmonary symptoms at this time. Cont albuterol prn. 10. allergies - flonase. Thank you for the consult. Will follow with you.
[2017-12-17] MEDS ORDERED: NIFEdipine 30 MG CR TAB PO STA (14:58)
--- NOTE | 2017-12-17 15:23 | PROGRESS NOTE ---
DATE: 12/17/2017 SUBJECTIVE: A 77-year-old gentleman postop from a right knee replacement, doing pretty well. Complains of some thigh and knee discomfort which is manageable. Has apparently asked for some pain medicine and is waiting for it. Denies any chest pain or shortness of breath. Not feeling dizzy or lightheaded. OBJECTIVE: VITAL SIGNS: Temperature is 36.5. Vital signs stable. GENERAL: Reveals a healthy pleasant elderly male. He is lying in bed, looks pretty comfortable. LUNGS: Clear to auscultation. HEART: Has a regular rate and rhythm. ABDOMEN: Soft, nontender, nondistended. EXTREMITIES: Grossly neurovascularly intact except as follows. Examination of the right leg reveals the leg to be well aligned. Dressing is clean, dry, and intact. He can dorsiflex and plantarflex his foot appropriately. He is neurologically intact. X-RAYS: X-rays of the right knee from recovery room were reviewed. It shows a right cemented posterior stabilized total knee arthroplasty. Components looked to be in good position. The film is slightly rotated. ASSESSMENT: A 77-year-old male with multiple underlying medical comorbidities postop from a right knee replacement, doing pretty well. Pain is controlled. He is neurologically intact. PLAN: 1. DVT prophylaxis including thigh high TEDs, SCDs. He is on baby aspirin as well as Plavix. 2. PT, OT. Weight bear as tolerated. Right total knee protocol. 3. Pain control, doing pretty well with current pain regimen. We are going to try and stick to limiting narcotics to avoid issues with confusion. 4. IV antibiotics x24 hours. 5. Medical management. The medicine service has been consulted to assist in medical care. 6. Disposition: He is planning to be discharged to home using [facility] home health program once adequately recovered.
[2017-12-17] MEDS: TRAMADOL HCL 50 MG TAB PO PRN ×3 (15:26→23:33)
--- NOTE | 2017-12-17 15:47 | OPERATIVE REPORT ---
DATE OF OPERATION: 12/17/2017 SURGEON: Ochoa Parish MD PERFORMANCE ARCHITECT: BALBIR Miller PREOPERATIVE DIAGNOSIS: Right knee degenerative joint disease. POSTOPERATIVE DIAGNOSIS: Same. PROCEDURE PERFORMED: Right cemented posterior stabilized total knee arthroplasty. COMPLICATIONS: None. ESTIMATED BLOOD LOSS: 50 mL. FLUID REPLACEMENT: 1200 mL crystalloid fluid replacement. TOURNIQUET TIME: 59 minutes at 300 mmHg. ANESTHESIA: Spinal with adductor canal block. DRAINS: None. SPECIMENS: Right knee sent for pathology. OPERATIVE INDICATIONS: The patient is a 77-year-old gentleman who has been a long-term patient of [facility] who presents for surgical treatment of his right knee. He has got a long history of right knee pain and discomfort, unresponsive to conservative treatment. He has been through extensive care and it just became less successful over time. He became more and more debilitated by his knee pain. He elected to proceed with total knee arthroplasty. OPERATIVE FINDINGS: Operative findings reveal advanced right knee DJD with extensive grade 4 changes of the medial femoral condyle and medial tibial plateau. He had grade 3 changes of the patellofemoral joint. He had a large knee joint effusion. Her lateral compartment was pretty well preserved. He had a varus deformity to his knee. OPERATIVE IMPLANTS: Operative implants consisted of: 1. Biomet Vanguard size 65 right posterior stabilized femoral component. 2. Biomet size 75 tibial tray. 3. A 10 mm posterior stabilized polyethylene insert. 4. A 34 x 8.5 all poly patella. OPERATIVE PROCEDURE: The patient taken to the operating room, identified and placed on the operating table in supine position. All contact areas were appropriately padded. IV antibiotics were provided by the anesthesia team. A spinal anesthetic and adductor canal block had been provided in the holding area. A Interiano catheter was placed in sterile fashion. The right thigh tourniquet was then placed and the right lower extremity was then prepped and draped in usual sterile fashion. The right leg was elevated and exsanguinated with Esmarch and tourniquet was placed at 300 mmHg. An anterior approach to the right knee was then performed through a longitudinal incision centered over the patella. Sharp dissection was carried out through the subcutaneous tissues down to the level of the extensor mechanism. A medial parapatellar arthrotomy incision was made. Some subperiosteal dissection was carried out medially. The fat pad was resected from beneath the patellar tendon. Lateral patellofemoral ligament was released. The patella was everted and knee was flexed. The osteophytes were taken off the distal femur. The ACL and PCL were then released from the distal femur and the tibia subluxated anteriorly. The external tibial alignment jig was then placed in the anterior face of the tibia and adjusted 16 mm medially. Proximal tibial cut was made to remove about a millimeter of bone from the most deficient aspect of the medial tibial plateau. Some osteophytes were taken off medial and posteromedially. Tibia was sized to a size 75. Attention was then drawn to the femur. The distal femur was entered with a sharp drill. Intramedullary canal was suctioned. A right 6 degree valgus cutting guide was placed. Distal femoral cutting block was pinned in place. Distal femoral cut was made to take an additional 3 mm of bone off the distal femur. The femur was then sized to a size 65. We did downsize this almost an entire size. The AP cutting block was pinned parallel to the epicondylar axis, which was 3 degrees of external rotation. The anterior cut, anterior chamfer, posterior cut, posterior chamfer cuts were made. Box cutting guide was placed and adjusted slightly lateral and the box cut was made. The knee was flexed. The remnants of the medial and lateral menisci were excised. The osteophytes were taken off the posterior aspect of the femur. Trial femoral component was placed. Tibial tray was pinned in maximum external rotation and the drill and stem punch were used to create defect in proximal tibia for the tibial tray. The knee was then trialed and the 10 mm insert fit most appropriately. Attention was then drawn to the patella. The patella was cleaned of all soft tissues. Patella thickness measured 25 mm in thickness and was cut down to 15. It was sized to a size 34 patella. Lug holes were drilled for a 34 patella. Lateral osteophyte was removed. Patella button was placed. Knee was taken through range of motion and patella tracked nicely with no thumbs test. Attention was then drawn toward placement of the permanent components. All trial components were removed. A bone plug was placed in the distal femur to limit blood loss. A double batch of Palacos G cement was mixed. A right size 65 posterior stabilized femoral component, size 75 tibial tray, a 10 mm posterior stabilized polyethylene insert, and a 34 x 8.5 all poly patella were then cemented in place. Knee was brought out into full extension until cement hardened. A final cement check was then performed. Pericapsular tissues were injected with a total of 100 mL of a combination of 20 mL of Exparel, 30 mL of normal saline, 50 mL of 0.25% Marcaine with epinephrine. The patient did receive 1 gram of tranexamic acid. The tourniquet was then let down for final tourniquet time of 59 minutes. Hemostasis was assured with use of electrocautery. The wound was once again irrigated. The extensor mechanism was then closed with a combination of #1 PDS suture and #1 Vicryl suture in a [id number] fashion. Extensor mechanism was checked and found to be intact. The subcutaneous tissues were then closed with 2-0 Dexon suture in a buried interrupted fashion. Skin was closed skin felice. Leg was then cleaned and dried and a sterile dressing of Xeroform, 4 x 4, sterile cast padding and See bandage were applied. The patient was then transferred to the recovery room in stable condition. The patient tolerated the procedure with no complications. All needle and sponge counts were correct at the end of the operation. I attest to the content of the Intraoperative Record and any orders documented therein. Any exception s are noted below.
[2017-12-17] MEDS: ACETAMINOPHEN 500 MG TAB PO SCH ×2 (16:11→23:33)
[2017-12-17] MEDS: CHECK SCOPOLAMINE PATCH PLACEMENT SCH ×2 (16:12→23:33)
[2017-12-17] MEDS ORDERED: TRANEXAMIC ACID INJ 1,000 MG in SODIUM CHLORIDE 0.9% 100ML 100 ML IV SCH (17:00)
[2017-12-17] MEDS: INSULIN ASPART 100 UNITS/ML 3 ML PEN SC SCH ×2 (17:15→21:21)
[2017-12-17] MEDS ORDERED: INSULIN HUMAN REGULAR SC SCH (17:15)
[2017-12-17] MEDS: CEFAZOLIN IV 2,000 MG in SYRINGE 5 ML IV SCH (17:51)
[2017-12-17] MEDS: PSYLLIUM 58.6% PWD PACK S\\F PO SCH (21:00)
[2017-12-17] MEDS ORDERED: QUINAPRIL HCL 10 MG TAB PO SCH (21:00)
[2017-12-17] MEDS: DOCUSATE SODIUM 100 MG CAP PO SCH (21:00)
[2017-12-17] MEDS: SENNA 8.6 MG TAB PO SCH (21:00)
[2017-12-17] MEDS ORDERED: UBIQUINOL PO SCH (21:00)
[2017-12-17] MEDS ORDERED: GLIMEPIRIDE 2 MG TAB PO SCH (21:00)
[2017-12-17] MEDS: ENALAPRIL MALEATE 10 MG TAB PO SCH (21:04)
[2017-12-17] MEDS: CLOPIDOGREL BISULFATE 75 MG TAB PO SCH (21:05)
[2017-12-17] MEDS: CYANOCOBALAMIN 500 MCG TAB (VIT B-12) PO SCH (21:05)
[2017-12-17] MEDS: CHOLECALCIFEROL 1000 INTER.UNIT TAB PO SCH (21:06)
[2017-12-17] MEDS: TAMSULOSIN HCL 0.4 MG CAP PO SCH (21:06)
[2017-12-18] MEDS: CEFAZOLIN IV 2,000 MG in SYRINGE 5 ML IV SCH (00:51)
[2017-12-18 03:40] VITALS: BP 156/70; PULSE 71; TEMP 36.7; O2SAT 96
[2017-12-18] MEDS: LEVOTHYROXINE 25 MCG TAB PO SCH (05:03)
[2017-12-18] MEDS: TRAMADOL HCL 50 MG TAB PO PRN ×2 (05:03→14:32)
[2017-12-18 06:50] LABS: HEMATOCRIT 35.9 % (42-52); HEMOGLOBIN 12.2 g/dL (14.0-18.0); MEAN PLATELET VOLUME 9.9 fL (7.4-10.4); PLATELET COUNT 200 K/uL (130-400); RED CELL DISTRIBUTION WIDTH CV 13.2 % (11.5-14.5); RED CELL DISTRIBUTION WIDTH SD 46.2 fL (36.4-46.3); WHITE BLOOD COUNT 13.68 K/uL (4.8-10.8)
[2017-12-18 07:33] LABS: CALCIUM 7.9 mg/dl (8.5-10.1); CREATININE 1.56 mg/dl (0.60-1.40); POTASSIUM 3.5 mmol/L (3.5-5.1)
[2017-12-18] MEDS: AVODART: ORDER AWAITING ACTION SCH ×2 (08:00→15:25)
[2017-12-18 08:09] VITALS: BP 160/80; PULSE 76; TEMP 36.9; O2SAT 96
[2017-12-18] MEDS: SODIUM CHLORIDE 0.9% 1000ML 1,000 ML IV SCH (08:19)
[2017-12-18] MEDS: CHECK SCOPOLAMINE PATCH PLACEMENT SCH ×2 (08:21→15:26)
[2017-12-18] MEDS: DOCUSATE SODIUM 100 MG CAP PO SCH ×2 (08:21→20:57)
[2017-12-18] MEDS: ROSUVASTATIN CALCIUM 5 MG TAB PO SCH (08:23)
[2017-12-18] MEDS: MULTIVITAMIN TAB PO SCH (08:23)
[2017-12-18] MEDS: PANTOprazole SOD 40 MG TAB PO SCH (08:23)
[2017-12-18] MEDS: CHOLECALCIFEROL 1000 INTER.UNIT TAB PO SCH ×2 (08:23→20:57)
[2017-12-18] MEDS: ACETAMINOPHEN 500 MG TAB PO SCH ×2 (08:23→15:32)
[2017-12-18] MEDS: FERROUS GLUCONATE 324 MG TAB PO SCH ×3 (08:24→18:15)
[2017-12-18] MEDS: FLUTICASONE PROPIONATE NA SPR 16 GM BTL NAE SCH (08:24)
[2017-12-18] MEDS: NIFEdipine 30 MG CR TAB PO SCH (08:25)
[2017-12-18] MEDS: ASPIRIN 81 MG ECTAB PO SCH (08:25)
[2017-12-18] MEDS: INSULIN ASPART 100 UNITS/ML 3 ML PEN SC SCH ×4 (09:20→21:00)
[2017-12-18] MEDS ORDERED: ULT50X PO (09:22)
[2017-12-18] MEDS ORDERED: ACET-24 PO (09:22)
--- NOTE | 2017-12-18 09:34 | PROGRESS NOTE ---
DATE: 12/18/2017 SUBJECTIVE: A 77-year-old gentleman postop day #1 from a right knee replacement. He is doing pretty well. Knee is sore, but the pain seems to be a little bit better today. No chest pain or shortness of breath. Not feeling dizzy or lightheaded. OBJECTIVE: VITAL SIGNS: Temperature 36.9. Vital signs stable. GENERAL: Physical examination reveals a pleasant elderly male. He is sitting up in bed and seems pretty awake and alert. May be just some slight confusion. EXTREMITIES: Examination of the right leg reveals the leg to be well aligned. He can dorsiflex and plantarflex his foot appropriately. He is neurologically intact. LABORATORY DATA: Hemoglobin 12.2 and hematocrit 35.9. Electrolytes are stable. Creatinine is chronically elevated, but stable. ASSESSMENT: A 77-year-old male with multiple comorbidities postop day #1 from right knee replacement, doing pretty well. Pain is controlled. He is neurologically intact. May be just some slight confusion. PLAN: 1. DVT prophylaxis including thigh-high TEDs, SCDs, and he is on a baby aspirin as well as Plavix. 2. PT/OT. Weightbear as tolerated. Right total knee protocol. 3. Pain control. We are going to stick to the Tylenol and tramadol to limit confusion issues. 4. Disposition: He is hoping to be discharged to home likely with some home health once adequately recovered.
[2017-12-18 10:39] VITALS: O2SAT 96
[2017-12-18 10:56] LABS: CKMB 2.6 ng/ml (0.5-3.6)
--- NOTE | 2017-12-18 10:56 | Hospitalist Progress Note ---
Hospitalist Progress Note Date of Service Dec 18, 2017. Subjective Pt evaluation today including: conversation w/ patient, physical exam, chart review, lab review, review of inpatient medication list Mr. Castillo reports more vision changes this am but his explanation is hard to follow and doesn't make a lot of sense but I think he is describing seeing this floating. He is unable to pinpoint time stating that he thinks it was sometime this morning but isn't sure. It has resolved at this point. ROS Constitutional: no chills, aches, sweats or fever Respiratory: no sob,cough, sputum, or wheezing Cardiac: no chest pain, palpitations, edema, orthopnea or lightheadedness GI: no abdominal pain, nausea, vomiting, diarrhea or constipation : no dysuria or hesitancy Extremities: pain at surgical site Skin: no rash All other systems reviewed and negative Medications Medications Administered Medications (Trade) Dose Ordered Sig/Jose L Route Start Time Stop Time Status Last Admin Dose Admin Acetaminophen (Tylenol Tab) 1,000 mg PREOP PO 12/17/17 06:00 12/17/17 18:00 DC 12/17/17 07:21 1,000 MG Bupivacaine Liposome 266 mg/ Bupivacaine HCl/ Epinephrine Bitart 50 ml/ Sodium Chloride 30 ml/Syringe 100 ml @ 0 mls/hr 06 INFIL 12/17/17 06:00 12/17/17 18:00 DC 12/17/17 10:24 100 MLS/HR Famotidine (Pepcid Tab) 20 mg PREOP PO 12/17/17 06:00 12/17/17 18:00 DC 12/17/17 07:20 20 MG Gabapentin (Neurontin Cap) 300 mg PREOP PO 12/17/17 06:00 12/17/17 18:00 DC 12/17/17 07:20 300 MG Metoclopramide HCl (Reglan Tab) 10 mg PREOP PO 12/17/17 06:00 12/17/17 18:00 DC 12/17/17 07:20 10 MG Scopolamine (Transderm-Scop Patch) 1.5 mg PREOP TD 12/17/17 06:00 12/17/17 15:00 DC 12/17/17 07:22 1.5 MG Miscellaneous Information (Check Scopolamine Patch Placement) 1 ea QS N/A 12/17/17 16:00 2/2/18 05:59 12/18/17 08:21 1 EA Lactated Ringer's 1,000 ml @ 15 mls/hr Q24H IV 12/17/17 06:00 12/18/17 05:59 DC 12/17/17 07:01 15 MLS/HR Lactated Ringer's 500 ml @ 999 mls/hr Q31M IV 12/17/17 06:00 12/17/17 06:30 DC 12/17/17 07:01 999 MLS/HR Cefazolin Sodium 15 ml @ 3.75 mls/ min PREOP IV 12/17/17 06:00 12/17/17 18:00 DC 12/17/17 09:00 3.75 MLS/MIN Bacitracin (Bacitracin Inj) 50,000 units STK-MED ONCE .ROUTE 12/17/17 08:44 12/17/17 08:45 DC 12/17/17 10:24 50,000 UNITS Sodium Chloride 1,000 ml @ 100 mls/hr Q10H IV 12/17/17 10:46 12/18/17 10:45 12/17/17 23:33 100 MLS/HR Cefazolin Sodium 2000 mg/Syringe 15 ml @ 3.75 mls/ min Q8H IV 12/17/17 17:00 12/18/17 01:03 DC 12/18/17 00:51 3.75 MLS/MIN Acetaminophen (Tylenol Tab) 1,000 mg Q8H PO 12/17/17 16:00 01/16/18 15:59 12/18/17 08:23 1,000 MG Multivitamins (Multivitamin Tab) 1 tab QAM PO 12/18/17 09:00 01/17/18 08:59 12/18/17 08:23 1 TAB Ondansetron HCl (Zofran Inj) 4 mg Q6H PRN IV 12/17/17 11:00 01/16/18 10:59 12/17/17 17:40 4 MG Ferrous Gluconate (Ferrous Gluconate Tab) 324 mg TIDM PO 12/17/17 12:30 01/16/18 12:29 12/18/17 08:24 324 MG Pantoprazole Sodium (Protonix Tab) 40 mg QAM PO 12/18/17 09:00 12/22/17 08:59 12/18/17 08:23 40 MG Tramadol HCl (Ultram Tab) 1 tablet for pain rating... Q4H PRN PO 12/17/17 11:00 01/16/18 10:59 12/18/17 05:03 100 MG Tranexamic Acid 1000 mg/Sodium Chloride 110 ml @ 660 mls/hr Q6H IV 12/17/17 17:00 12/17/17 17:09 DC 12/17/17 17:51 660 MLS/HR Aspirin (Ecotrin Tab) 81 mg QAM PO 12/18/17 09:00 01/17/18 08:59 12/18/17 08:25 81 MG Clopidogrel Bisulfate (plAVix TAB) 75 mg QPM PO 12/17/17 21:00 01/16/18 20:59 12/17/17 21:05 75 MG Fluticasone Propionate (Flonase Nasal Moore) 2 sprays QAM LILA 12/18/17 09:00 01/17/18 08:59 12/18/17 08:24 2 SPRAYS Levothyroxine Sodium (Synthroid Tab) 25 mcg DAILYBB PO 12/18/17 06:00 01/17/18 05:59 12/18/17 05:03 25 MCG Rosuvastatin Calcium (Crestor Tab) 5 mg DAILY PO 12/18/17 09:00 01/17/18 08:59 12/18/17 08:23 5 MG Tamsulosin HCl (Flomax Cap) 0.4 mg HS PO 12/17/17 21:00 01/16/18 20:59 12/17/17 21:06 0.4 MG Cholecalciferol (Vitamin D Tab) 2,000 inter.unit BID PO 12/17/17 21:00 01/16/18 20:59 12/18/17 08:23 2,000 INTER.UNIT Cyanocobalamin (Vitamin B-12 Tab) 1,000 mcg QPM PO 12/17/17 21:00 01/16/18 20:59 12/17/17 21:05 1,000 MCG Insulin Aspart (novoLOG ASPART) SLIDING SCALE G... ACHS SC 12/17/17 17:15 01/16/18 17:14 12/17/17 21:21 5 UNITS Enalapril Maleate (Vasotec Tab) 10 mg QPM PO 12/17/17 21:00 01/16/18 20:59 12/17/17 21:04 10 MG Nifedipine (Procardia Xl Tab) 30 mg NOW STAT PO 12/17/17 14:58 12/17/17 15:08 DC 12/17/17 16:10 30 MG Nifedipine (Procardia Xl Tab) 30 mg QAM PO 12/18/17 09:00 01/17/18 08:59 12/18/17 08:25 30 MG Objective Vital Signs Date Time Temp Pulse Resp B/P (MAP) Pulse Ox O2 Delivery O2 Flow Rate FiO2 12/18/17 08:20 Room Air 12/18/17 08:09 36.9 76 16 160/80 (106) 96 Room Air 12/18/17 03:40 36.7 71 17 156/70 (98) 96 Room Air 12/17/17 23:35 Room Air 12/17/17 23:20 36.8 74 18 161/80 (107) 97 Room Air 12/17/17 20:30 36.8 66 18 154/72 (99) 98 Room Air 12/17/17 15:33 36.4 59 20 177/73 (107) 100 Nasal Cannula 3.0 12/17/17 15:15 100 Nasal Cannula 2.0 12/17/17 14:41 68 18 187/80 (115) 100 12/17/17 13:40 58 16 179/84 (115) 100 12/17/17 12:40 59 18 184/74 (110) 100 Nasal Cannula 3.0 12/17/17 12:10 51 18 157/82 (107) 99 12/17/17 11:40 Nasal Cannula 2.0 12/17/17 11:40 36.5 57 16 150/78 (102) 100 Nasal Cannula 2.0 12/17/17 11:25 36.2 62 16 152/68 98 Nasal Cannula 2 12/17/17 11:20 62 16 152/66 97 Nasal Cannula 2 12/17/17 11:10 58 14 160/73 97 Nasal Cannula 2 12/17/17 11:00 60 14 170/71 95 Nasal Cannula 2 12/17/17 10:50 36.4 69 14 162/76 97 Nasal Cannula 2 Physical Exam Notes: General: no distress Eyes: normal inspection, PERLL Respiratory: chest non tender, clear to auscultation, normal breath sounds, no respiratory distress, no accessory muscle use Cardiac: regular rate and rhythm, no rub or gallop, no murmur, no edema, no jvd GI/: active bowel sounds, no abd pain or tenderness, soft, non distended Extremities: normal range of motion, normal strength, non tender Neuro/Psych: alert and oriented x 3, normal mood and affect, some difficulty with word finding, slight palmar pronation on the right, CN II-XII intact Skin: normal color, dry Laboratory Results Last 24 Hours Test 12/17/17 10:56 12/17/17 12:04 12/17/17 16:57 12/17/17 20:31 Bedside Glucose 150 mg/dl 161 mg/dl 181 mg/dl 216 mg/dl Test 12/18/17 05:42 12/18/17 09:29 12/18/17 10:21 White Blood Count 13.68 K/uL Red Blood Count 3.70 M/uL Hemoglobin 12.2 g/dL Hematocrit 35.9 % Mean Corpuscular Volume 97.0 fL Mean Corpuscular Hemoglobin 33.0 pg Mean Corpuscular Hemoglobin Concent 34.0 g/dl RDW Standard Deviation 46.2 fL RDW Coefficient of Variation 13.2 % Platelet Count 200 K/uL Mean Platelet Volume 9.9 fL Sodium Level 134 mmol/L Potassium Level 3.5 mmol/L Chloride Level 102 mmol/L Carbon Dioxide Level 25 mmol/L Anion Gap 7.0 mmol/L Blood Urea Nitrogen 20 mg/dl Creatinine 1.56 mg/dl Est Creatinine Clear Calc Drug Dose 48.9 ml/min Estimated GFR () 49.6 Estimated GFR (Non- 42.8 BUN/Creatinine Ratio 12.8 Random Glucose 165 mg/dl Calcium Level 7.9 mg/dl Bedside Glucose 122 mg/dl Creatine Kinase MB Ratio Assessment and Plan 77yo male with h/o T2DM, HTN, BPH, hypothyroidism, parkinsonism, probable mild cognitive impairment, and TIA - s/p elective right TKR earlier today. Post-op he had transient diplopia and transient visual disturbance. Yesterday he was unable to clearly tell Dr. Ware the duration of his symptoms and again he is unable to pinpoint time frame for visual complaints. Diplopia/visual disturbance - TIA/CVA vs Delirium - I am more inclined to think this is hospital/anesthesia induced delirium superimposed on some existing dementia, however given the history of TIA and continued though intermittent complaints of visual changes, I will send patient for MRI/MRA brain and carotid dopplers and consult neuro. As there is no last known well and patient has had complaints since yesterday and because he has minor symptoms, he would not be a candidate for any thrombolytic therapy. - cardiac isos - continue plavix, ASA - EKG HTN - resume all home medications. - blood pressures are running a bit high but until CVA r/o permissive htn CKD - Creat appears at baseline at 1.56 BPH - continue alpha kelsey and avodart, watch for urinary retention once hollins is d/c. T2DM - hold amaryl while hospitalized. Use novolog in eric of novolin-R. - ss, bsgs ac & hs - Add basal if necessary. Hypothyroidism - cont synthroid. TSH fall of 2016 was wnl. H/o parkinsonism - noted. Mild memory issues/probable mild cognitive impairment at home - makes him more susceptible to hospital psychosis. Avoid benzos, ambient, sleep aids, etc. DVT proph - per orthopedics. Question of COPD (per ) - no pulmonary symptoms at this time. Cont albuterol prn. Allergies - flonase. Thank you for the consult. Will follow with you.
[2017-12-18 11:31] VITALS: BP 174/81; PULSE 87; O2SAT 97
--- NOTE | 2017-12-18 12:11 | DIAGNOSTIC IMAGING REPORT ---
MR ANGIOGRAPHY OF THE [place] NO CONTRAST CLINICAL HISTORY: Transient ischemic attack. Headache. Blurred vision. COMPARISON STUDY: 06/05/2012 A 3-D [id number] MR angiographic sequence of the [place] was performed. Both the source and projection images were reviewed. There is no evidence of major intracranial branch occlusion. There is no evidence of intracranial stenosis. There are no lesions suspicious for aneurysm. Incidental note is made of a cavum vergae. IMPRESSION: Unremarkable MR angiography of the [place]. Electronically signed by: Rivera Santoyo M.D. 12/18/2017 12:09 PM Dictated Date/Time: 12/18/2017 12:08 PM
--- NOTE | 2017-12-18 12:39 | DIAGNOSTIC IMAGING REPORT ---
MRI OF THE BRAIN WITHOUT CONTRAST CLINICAL HISTORY: Perioperative stroke/TIA. COMPARISON STUDY: December 2015 FINDINGS: Sagittal T1, axial diffusion, proton density and T2 weighted axial, coronal FLAIR, and axial T1-weighted images were acquired. No intra or extra-axial mass lesions are visualized Axial diffusion-weighted images reveal no evidence of acute or subacute infarction. There is no evidence of pathologic ventricular dilatation. There is a incidental cavum vergae. Proton density T2-weighted and FLAIR images reveal no significant intraparenchymal signal abnormalities There are no abnormal flow voids. IMPRESSION: Normal MRI of the brain for age Electronically signed by: Rivera Santoyo M.D. 12/18/2017 12:38 PM Dictated Date/Time: 12/18/2017 12:36 PM
--- NOTE | 2017-12-18 14:00 | DIAGNOSTIC IMAGING REPORT ---
ULTRASOUND OF THE CAROTID ARTERIES CLINICAL HISTORY: Transient ischemic attack. COMPARISON STUDY: Carotid artery ultrasound dated 11/06/2013. TECHNIQUE: Real-time, grayscale, and color Doppler sonography of the carotid arteries is performed. Images are reviewed in the transverse and longitudinal planes. FINDINGS: Blood pressure in the right arm measures 191/86 and blood pressure in the left arm measures 187/89. The carotid arteries are patent bilaterally and demonstrate antegrade flow. There is mild to moderate echogenic atherosclerotic plaque seen in the carotid bulbs bilaterally. Normal doppler arterial waveforms are seen throughout. Velocity measurements are listed below. Common carotid peak systolic velocity (cm/sec): RIGHT: 129 LEFT: 135 ICA proximal peak systolic velocity (cm/sec): RIGHT: 155 LEFT: 80 ICA mid peak systolic velocity (cm/sec): RIGHT: 125 LEFT: 82 ICA distal peak systolic velocity (cm/sec): RIGHT: 134 LEFT: 80 ICA/CC peak systolic ratio: RIGHT: 1.2 LEFT: 0.8 Antegrade flow was shown in the vertebral arteries. The external carotid arteries are patent. IMPRESSION: 1. Findings suggest 50-69% stenosis at the origin of the right internal carotid artery by velocity criteria. 2. There is no sonographic evidence of hemodynamically significant stenosis in the left carotid arterial system. 3. Antegrade flow is shown in the vertebral arteries. 4. Hypertension as above. Electronically signed by: Gordy Dominguez M.D. 12/18/2017 1:58 PM Dictated Date/Time: 12/18/2017 1:56 PM
[2017-12-18 14:51] VITALS: BP 155/77; PULSE 104; TEMP 36.8; O2SAT 96
--- NOTE | 2017-12-18 20:44 | Discharge Instructions ---
Discharge Instructions Date of Service Dec 18, 2017. Admission Reason for Admission: Right Knee Degenerative Joint Disease;Pre-Op Discharge Discharge Diagnosis / Problem: Right Knee Replacemenet Discharge Goals Goal(s): Decrease discomfort, Improve function, Increase independence, Improve disease control, Therapeutic intervention Activity Recommendations Activity Limitations: per Instructions/Follow-up section Weightbearing Status: Right weightbearing . Instructions / Follow-Up Instructions / Follow-Up ACTIVITY RECOMMENDATIONS: Physical Therapy: * You will go to physical therapy three times each week for four to six weeks after your surgery in order to regain your knee range of motion and to retrain your knee to work properly. * It is just as important to make sure you are getting your knee perfectly straight as it is to regain your knee bend. * Taking a pain pill an hour before therapy can help you have a more productive and comfortable therapy session. Home Exercise: * You were shown a series of exercises (heel props, heel slides, etc.) in the hospital. Do these exercises three to four times each day including the exercises you were shown in physical therapy. Walking: * Get up and walk several times each day. For the first four weeks, try not to stand or walk for more than one hour at a time. If you do stand or walk for more than one hour, you will not hurt anything, but your knee and leg will likely swell. * As you feel comfortable, you may change from the walker or crutches to a cane and then to independent walking. MEDICATIONS: New Medicine: * You will likely be taking one or more of these medications: 1. Tramadol - A quick and shorter-acting pain medication. Take one to two tablets every four to six hours to lessen your pain. 2. Aspirin - Thins your blood to lessen the chance of forming a blood clot. * The most common side effects of pain medicine and iron are nausea and constipation. If nausea or constipation is too much of a problem or if you have any questions about your new medicines or doses, call [facility] at [phone]. We will try to help you manage these issues. VERY IMPORTANT TO READ AND REVIEW" Pain: * The immediate post-operative period after knee replacement surgery is often quite painful. * You are given a prescription for pain medicine. You should take it, as directed, when you need it, especially before physical therapy and before going to bed. Pain that interferes with sleep is very common and can last several months. * You will likely need pain medicine for the first four to six weeks. It will not stop all of the pain. The pain will lessen and as you feel better, you may change to milder pain medicine such as Tylenol. * The most common side effects of pain medicine are nausea and constipation, so don't take more than you need. SPECIAL CARE INSTRUCTIONS: TEDs/Elastic Stockings: * The white elastic stockings help limit swelling and prevent blood clots from forming in your legs. The more you wear them, the more they work. * Wear them for six weeks after knee replacement surgery and four weeks after partial knee replacement. Prevention of Infection: * Take antibiotics one hour before any dental cleaning, dental work, urological procedure, gastrointestinal procedure or any invasive surgery in order to prevent your new joint from getting infected. * You may get the antibiotics from the doctor performing the procedure or you may call our office at before and we will call in a prescription to the pharmacy of your choice. Things to Watch For: * Drainage from the incision site that occurs more than one week after your surgery. * Severely increased knee/leg pain or swelling. * Increased redness at the incision site. * Fever above 102 degrees Fahrenheit. * Unusual chest pain or shortness of breath. * Unusual pain or burning with urination. Call [facility] at with any of the above problems or if you have any questions about your medicines or recovery. FOLLOW UP VISIT: Make an appointment to see your doctor for approximately two weeks after surgery for a progress check and staple removal by calling the office at . Current Hospital Diet Patient's current hospital diet: Gluten Free Diet, Low Lactose Diet, Diabetes Type 2 Diet Discharge Diet Recommended Diet: Diabetes Type 2 Diet Procedures Procedures Performed: Right Total Knee Arthroplasty Pending Studies Studies pending at discharge: no Medical Emergencies . Who to Call and When: Medical Emergencies: If at any time you feel your situation is an emergency, please call [phone] immediately. . Non-Emergent Contact Non-Emergency issues call your: Surgeon . "Provider Documentation" section prepared by Ochoa Parish. . VTE Core Measure Inpt VTE Proph given/why not?: Other Anticoagulation, T.E.D. Stockings, SCD's
[2017-12-18] MEDS: PSYLLIUM 58.6% PWD PACK S\\F PO SCH (20:56)
[2017-12-18] MEDS: SENNA 8.6 MG TAB PO SCH (20:56)
[2017-12-18] MEDS: TAMSULOSIN HCL 0.4 MG CAP PO SCH (20:56)
[2017-12-18] MEDS: CYANOCOBALAMIN 500 MCG TAB (VIT B-12) PO SCH (20:57)
[2017-12-18] MEDS: CLOPIDOGREL BISULFATE 75 MG TAB PO SCH (20:57)
[2017-12-18] MEDS: ENALAPRIL MALEATE 10 MG TAB PO SCH (20:57)
[2017-12-18] MEDS ORDERED: INSULIN GLARGINE SOLOSTAR 100 UNITS/ML 3 ML PEN SC SCH (21:00)
[2017-12-18 23:30] VITALS: BP 155/77; PULSE 100; TEMP 36.7; O2SAT 96
[2017-12-19] MEDS: CHECK SCOPOLAMINE PATCH PLACEMENT SCH ×3 (00:09→16:00)
[2017-12-19] MEDS: ACETAMINOPHEN 500 MG TAB PO SCH ×3 (00:09→16:56)
[2017-12-19] MEDS: LEVOTHYROXINE 25 MCG TAB PO SCH (05:41)
[2017-12-19 07:20] VITALS: BP 151/68; PULSE 81; TEMP 36.8; O2SAT 96
--- NOTE | 2017-12-19 08:13 | PROGRESS NOTE ---
DATE: 12/19/2017 SUBJECTIVE: A 77-year-old gentleman postop day #2 from a right knee replacement. Bit confused yesterday, but seems to be doing better this morning. His pain medicine has been stopped some. He is complaining of some knee pain. No chest pain or shortness of breath. Not feeling dizzy or lightheaded. OBJECTIVE: VITAL SIGNS: Temperature 36.8. Vital signs stable. GENERAL: Physical examination reveals a pleasant elderly male. He is sitting up in bed. He is awake, alert and oriented and appropriate. EXTREMITIES: Examination of the right leg reveals some moderate swelling. No significant drainage. He can dorsiflex and plantarflex his foot appropriately. Calf is soft with some mild swelling. LABORATORY DATA: No new labs. ASSESSMENT: A 77-year-old gentleman postop day #2 from a right knee replacement, doing pretty well. Some confusion issues, likely related to anesthesia and pain medicines. His scopolamine patch has been discontinued. We have been holding his tramadol. PLAN: 1. DVT prophylaxis including thigh-high TEDs, SCDs, and back on a baby aspirin as well as Plavix. 2. PT/OT. Weightbear as tolerated. Right total knee protocol. 3. Pain control. We are going to stick to Tylenol as much as possible. We will use tramadol only if necessary, but we are going to limit that now to avoid confusion issues. 4. Medical management as per the medicine service. 5. Disposition: He was hoping to go home, but I think his is a bit concerned about her ability to care for him. We will get home health care social worker involved again.
[2017-12-19] MEDS: DOCUSATE SODIUM 100 MG CAP PO SCH (08:57)
[2017-12-19] MEDS: MULTIVITAMIN TAB PO SCH (08:58)
[2017-12-19] MEDS: FERROUS GLUCONATE 324 MG TAB PO SCH ×2 (08:58→13:36)
[2017-12-19] MEDS: PANTOprazole SOD 40 MG TAB PO SCH (08:58)
[2017-12-19] MEDS: ROSUVASTATIN CALCIUM 5 MG TAB PO SCH (08:58)
[2017-12-19] MEDS: FLUTICASONE PROPIONATE NA SPR 16 GM BTL NAE SCH (08:58)
[2017-12-19] MEDS: ASPIRIN 81 MG ECTAB PO SCH (08:58)
[2017-12-19] MEDS: NIFEdipine 30 MG CR TAB PO SCH (08:59)
[2017-12-19] MEDS: CHOLECALCIFEROL 1000 INTER.UNIT TAB PO SCH (08:59)
[2017-12-19] MEDS ORDERED: INSULIN GLARGINE SOLOSTAR 100 UNITS/ML 3 ML PEN SC SCH (09:00)
[2017-12-19] MEDS: INSULIN ASPART 100 UNITS/ML 3 ML PEN SC SCH ×3 (09:04→17:00)
--- NOTE | 2017-12-19 15:30 | Hospitalist Progress Note ---
Hospitalist Progress Note Date of Service Dec 19, 2017. Subjective Pt evaluation today including: conversation w/ patient, conversation w/ family , physical exam, chart review, lab review, review of inpatient medication list Voiding: no voiding problems Mr. Castillo feels good today except for some pain and stiffness in his surgical knee. He continues to see the wall moving at times and his feels he still has a bit of confusion. ROS Constitutional: no chills, aches, sweats or fever Respiratory: no sob,cough, sputum, or wheezing Cardiac: no chest pain, palpitations, edema, orthopnea or lightheadedness GI: no abdominal pain, nausea, vomiting, diarrhea or constipation : no dysuria or hesitancy Extremities: no joint pain or weakness Skin: no rash All other systems reviewed and negative Medications Medications Administered Medications (Trade) Dose Ordered Sig/Jose L Route Start Time Stop Time Status Last Admin Dose Admin Acetaminophen (Tylenol Tab) 1,000 mg PREOP PO 12/17/17 06:00 12/17/17 18:00 DC 12/17/17 07:21 1,000 MG Bupivacaine Liposome 266 mg/ Bupivacaine HCl/ Epinephrine Bitart 50 ml/ Sodium Chloride 30 ml/Syringe 100 ml @ 0 mls/hr 06 INFIL 12/17/17 06:00 12/17/17 18:00 DC 12/17/17 10:24 100 MLS/HR Famotidine (Pepcid Tab) 20 mg PREOP PO 12/17/17 06:00 12/17/17 18:00 DC 12/17/17 07:20 20 MG Gabapentin (Neurontin Cap) 300 mg PREOP PO 12/17/17 06:00 12/17/17 18:00 DC 12/17/17 07:20 300 MG Metoclopramide HCl (Reglan Tab) 10 mg PREOP PO 12/17/17 06:00 12/17/17 18:00 DC 12/17/17 07:20 10 MG Scopolamine (Transderm-Scop Patch) 1.5 mg PREOP TD 12/17/17 06:00 12/17/17 15:00 DC 12/17/17 07:22 1.5 MG Miscellaneous Information (Check Scopolamine Patch Placement) 1 ea QS N/A 12/17/17 16:00 12/20/17 05:59 12/19/17 00:09 1 EA Lactated Ringer's 1,000 ml @ 15 mls/hr Q24H IV 12/17/17 06:00 12/18/17 05:59 DC 12/17/17 07:01 15 MLS/HR Lactated Ringer's 500 ml @ 999 mls/hr Q31M IV 12/17/17 06:00 12/17/17 06:30 DC 12/17/17 07:01 999 MLS/HR Cefazolin Sodium 15 ml @ 3.75 mls/ min PREOP IV 12/17/17 06:00 12/17/17 18:00 DC 12/17/17 09:00 3.75 MLS/MIN Bacitracin (Bacitracin Inj) 50,000 units STK-MED ONCE .ROUTE 12/17/17 08:44 12/17/17 08:45 DC 12/17/17 10:24 50,000 UNITS Sodium Chloride 1,000 ml @ 100 mls/hr Q10H IV 12/17/17 10:46 12/18/17 10:45 DC 12/17/17 23:33 100 MLS/HR Cefazolin Sodium 2000 mg/Syringe 15 ml @ 3.75 mls/ min Q8H IV 12/17/17 17:00 12/18/17 01:03 DC 12/18/17 00:51 3.75 MLS/MIN Acetaminophen (Tylenol Tab) 1,000 mg Q8H PO 12/17/17 16:00 01/16/18 15:59 12/19/17 08:57 1,000 MG Multivitamins (Multivitamin Tab) 1 tab QAM PO 12/18/17 09:00 01/17/18 08:59 12/19/17 08:58 1 TAB Ondansetron HCl (Zofran Inj) 4 mg Q6H PRN IV 12/17/17 11:00 01/16/18 10:59 12/17/17 17:40 4 MG Ferrous Gluconate (Ferrous Gluconate Tab) 324 mg TIDM PO 12/17/17 12:30 01/16/18 12:29 12/19/17 08:58 324 MG Pantoprazole Sodium (Protonix Tab) 40 mg QAM PO 12/18/17 09:00 12/22/17 08:59 12/19/17 08:58 40 MG Tramadol HCl (Ultram Tab) 1 tablet for pain rating... Q4H PRN PO 12/17/17 11:00 01/16/18 10:59 12/18/17 14:32 100 MG Tranexamic Acid 1000 mg/Sodium Chloride 110 ml @ 660 mls/hr Q6H IV 12/17/17 17:00 12/17/17 17:09 DC 12/17/17 17:51 660 MLS/HR Aspirin (Ecotrin Tab) 81 mg QAM PO 12/18/17 09:00 01/17/18 08:59 12/19/17 08:58 81 MG Clopidogrel Bisulfate (plAVix TAB) 75 mg QPM PO 12/17/17 21:00 01/16/18 20:59 12/18/17 20:57 75 MG Fluticasone Propionate (Flonase Nasal [place]) 2 sprays QAM LILA 12/18/17 09:00 01/17/18 08:59 12/19/17 08:58 2 SPRAYS Levothyroxine Sodium (Synthroid Tab) 25 mcg DAILYBB PO 12/18/17 06:00 01/17/18 05:59 12/19/17 05:41 25 MCG Rosuvastatin Calcium (Crestor Tab) 5 mg DAILY PO 12/18/17 09:00 01/17/18 08:59 12/19/17 08:58 5 MG Tamsulosin HCl (Flomax Cap) 0.4 mg HS PO 12/17/17 21:00 01/16/18 20:59 12/18/17 20:56 0.4 MG Cholecalciferol (Vitamin D Tab) 2,000 inter.unit BID PO 12/17/17 21:00 01/16/18 20:59 12/19/17 08:59 2,000 INTER.UNIT Cyanocobalamin (Vitamin B-12 Tab) 1,000 mcg QPM PO 12/17/17 21:00 01/16/18 20:59 12/18/17 20:57 1,000 MCG Insulin Aspart (novoLOG ASPART) SLIDING SCALE G... ACHS SC 12/17/17 17:15 01/16/18 17:14 12/19/17 09:04 4 UNITS Enalapril Maleate (Vasotec Tab) 10 mg QPM PO 12/17/17 21:00 01/16/18 20:59 12/18/17 20:57 10 MG Nifedipine (Procardia Xl Tab) 30 mg NOW STAT PO 12/17/17 14:58 12/17/17 15:08 DC 12/17/17 16:10 30 MG Nifedipine (Procardia Xl Tab) 30 mg QAM PO 12/18/17 09:00 01/17/18 08:59 12/19/17 08:59 30 MG Insulin Glargine (Lantus Solostar Pen) 5 units BID SC 12/18/17 21:00 12/19/17 08:16 DC 12/18/17 21:00 5 UNITS Insulin Glargine (Lantus Solostar Pen) 10 units BID SC 12/19/17 09:00 01/17/18 20:59 12/19/17 09:05 10 UNITS Objective Vital Signs Date Time Temp Pulse Resp B/P (MAP) Pulse Ox O2 Delivery O2 Flow Rate FiO2 12/19/17 07:20 36.8 81 18 151/68 (95) 96 Room Air 12/19/17 07:20 Room Air 12/19/17 00:00 Room Air 12/18/17 23:30 36.7 100 19 155/77 (103) 96 Room Air 12/18/17 15:25 Room Air Physical Exam Notes: General: no distress Eyes: normal inspection, PERLL Respiratory: chest non tender, clear to auscultation, normal breath sounds, no respiratory distress, no accessory muscle use Cardiac: regular rate and rhythm, no rub or gallop, no murmur, no edema, no jvd GI/: active bowel sounds, no abd pain or tenderness, soft, non distended Extremities: normal range of motion in left, right knee somewhat stiff, normal strength, non tender Neuro/Psych: alert and oriented x 3, normal mood and affect Skin: normal color, dry, dressing on right knee dry and intact Laboratory Results Last 24 Hours Test 12/18/17 17:01 12/18/17 20:37 12/19/17 07:52 Bedside Glucose 195 mg/dl 219 mg/dl 220 mg/dl Assessment and Plan 77yo male with h/o T2DM, HTN, BPH, hypothyroidism, parkinsonism, probable mild cognitive impairment, and TIA - s/p elective right TKR earlier today. Post-op he had transient diplopia and transient visual disturbance. Diplopia/visual disturbance - TIA/CVA vs Delirium - I am more inclined to think this is hospital/anesthesia induced delirium superimposed on some existing dementia, however given the history of TIA and continued though intermittent complaints of visual changes, I did send the patient for MRI/MRA brain and carotid dopplers which did not show any acute change and dopplers did not show significant stenosis - cardiac isos were also negative - continue plavix, ASA - EKG HTN - continue home bp meds CKD - Creat appears at baseline BPH - continue alpha kelsey and avodart, watch for urinary retention once hollins is d/c. T2DM - hold amaryl while hospitalized. Use novolog in eric of novolin-R. - ss, bsgs ac & hs - increased basal and tightened ss for bsgs running in the 200s. Hypothyroidism - cont synthroid. TSH fall of 2017 was wnl. H/o parkinsonism - noted. Mild memory issues/probable mild cognitive impairment at home - makes him more susceptible to hospital psychosis. Avoid benzos, ambient, sleep aids, etc. DVT proph - per orthopedics. Question of COPD (per ) - no pulmonary symptoms at this time. Cont albuterol prn. Allergies - flonase. Patient is currently awaiting authorization for [facility]. He is medically stable for discharge.
[2017-12-19 16:22] VITALS: BP 146/82; PULSE 90; TEMP 37.7; O2SAT 98
[2017-12-19 17:02] VITALS: BP 146/82; PULSE 90; TEMP 37.7; O2SAT 98
[2017-12-19] MEDS ORDERED: DUTASTERIDE 0.5MG PO SCH (21:00)
--- NOTE | 2017-12-25 10:34 | DISCHARGE SUMMARY ---
ADMITTING PHYSICIAN AND SURGEON: Dr. Parish. ADMITTING DIAGNOSIS: Right knee degenerative joint disease. SURGERY PERFORMED: Right total knee arthroplasty. SECONDARY DIAGNOSES: Elevated cholesterol, history of transient ischemic attack, Parkinson symptoms, diabetes, hypothyroidism, low back pain, spinal stenosis, gastroesophageal reflux disease, hiatal hernia, and obesity. CONSULTS: Dr. Hamilton for postoperative medical management. HISTORY AND PHYSICAL EXAMINATION: Well documented in the patient's chart. HOSPITAL COURSE: The patient was admitted on 12/17/2017 and underwent total knee arthroplasty. He tolerated the procedure well. There were no complications. He was transferred to the PACU postoperatively and later to the orthopedic floor for further care. He was given Ancef for antibiotic prophylaxis and DENISE stockings, SCDs, a baby aspirin and Plavix as well. His hemoglobin, hematocrit and vital signs were monitored during his hospital stay and remained stable. He developed some mild postoperative anemia and did not require any blood transfusions. He did have some confusion postoperatively as well as some visual complaints/disturbances. He was followed by the hospitalist service throughout his hospital stay. He had a head MRA done, which was unremarkable per the report. He also had an MRI, which was a normal brain MRI per the report and carotid artery ultrasound. There were no complications during his hospital stay. By postoperative day #2, he was tolerating a regular diet. Pain was controlled with oral pain medicine. He was participating in physical therapy. On postoperative day #2, he was transferred to a rehab facility. He was given printed discharge instructions including new prescriptions for extra strength Tylenol and tramadol. Continue his home medications. Continue physical therapy, weightbearing as tolerated and DENISE stockings. Follow up in 10-12 days or sooner if there are problems or concerns.
== END 2017-12-19 17:15 | DRG 470 ==
LOC: C.ACU 06:21 → C.3E 06:40 → ENRESERV 11:11
PROVIDERS: ADMIT Orthopaedic Surgery Sports Medicine; ATTEND Orthopaedic Surgery Sports Medicine
PROC: 0SRC0J9 Replacement of Right Knee Joint with Synthetic Substitute, Cemented, Open Approach (ICD-10-PCS; principal; 2017-12-17 09:00)
DX: M17.11 Unilateral primary osteoarthritis, right knee (principal); I69.954 Hemiplegia and hemiparesis following unspecified cerebrovascular disease affecting left non-dominant side; G20 Parkinson's disease; K21.9 Gastro-esophageal reflux disease without esophagitis; E66.9 Obesity, unspecified; E03.9 Hypothyroidism, unspecified; T41.3X5A Adverse effect of local anesthetics, initial encounter; Z79.82 Long term (current) use of aspirin; E11.9 Type 2 diabetes mellitus without complications; I12.9 Hypertensive chronic kidney disease with stage 1 through stage 4 chronic kidney disease, or unspecified chronic kidney disease; M48.061 Spinal stenosis, lumbar region without neurogenic claudication; N18.9 Chronic kidney disease, unspecified; N40.0 Benign prostatic hyperplasia without lower urinary tract symptoms; Z88.0 Allergy status to penicillin; Z88.2 Allergy status to sulfonamides; Z88.8 Allergy status to other drugs, medicaments and biological substances; H53.8 Other visual disturbances; R41.0 Disorientation, unspecified; Y92.239 Unspecified place in hospital as the place of occurrence of the external cause

== ENCOUNTER → 2017-12-31 | Outpatient (CLI) | payer OTHER ==
[~2017-12-31] MED LIST changes: +ACET-24 PO; -ACETAMINOPHEN 500 MG TAB PO SCH; -BUPIVACAINE LIPOSOME 266 MG, BUPIVACAINE/EPINEPHRINE INJ 50 ML, SODIUM CHLORIDE 0.9% PF... INFIL SCH; -CEFAZOLIN 2000MG IV PUSH 15 ML IV SCH; -FAMOTIDINE 20 MG TAB PO SCH; -GABAPENTIN 300 MG CAP PO SCH; -LACTATED RINGER'S 1000ML 1,000 ML IV SCH; -LACTATED RINGER'S 1000ML 500 ML IV SCH; -LACTATED RINGER'S 1000ML IV SCH; -METOCLOPRAMIDE HCL 10 MG TAB PO SCH; -SCOPOLAMINE 1.5 MG TDSY TD SCH; -TRANEXAMIC ACID INJ 1,000 MG in SYRINGE 0 ML IV SCH; +ULT50X PO
== END | disposition home or self-care (01) ==
LOC: C.LAB 10:38
PROVIDERS: ATTEND Internal Medicine
DX: R39.9 Unspecified symptoms and signs involving the genitourinary system (principal)

== ENCOUNTER → 2018-06-26 | Day surgery (SDC) | payer OTHER ==
[2018-06-18 11:18] VITALS: Ht 180.3 cm; Wt 93.6 kg
[~2018-06-26] VITALS: Ht 180.3 cm; Wt 93.6 kg
[~2018-06-26] MED LIST changes: -ACET-24 PO; +ACET1TAB84 PO; +CLIN300C2 PO; +DOXY-258 PO; -DOXY50CA26 PO; -GLUC10007 PO; +GLUC1500 PO; +LIDOCAINE HCL 2% 2 ML VIAL (20MG/ML) ONE; +MIDAZOLAM HCL 1 MG/ML 2ML VIAL ONE; +NVLGI/PEN SC; +ONDANSETRON INJ 2 MG/ML 2 ML VIAL ONE; +PROPOFOL IV EMULSION 10 MG/ML 20 ML VIAL ONE; -TERB1CRE41 TOP; -ULT50X PO
[2018-06-26 12:31] VITALS: TEMP 36.8
--- NOTE | 2018-06-26 12:57 | Endo History and Physical ---
History & Physical Date of Service: Jun 26, 2018. Chief Complaint: DYSPHAGIA, ACID REFLUX Referring Physician: DR. GERONIMO History of Present Illness 78 yo CM who presents for EGD secondary to dysphagia and GERD. Past Surgical History Hx Cardiac Surgery: No Hx Internal Defibrillator: No Hx Pacemaker: No Hx Abdominal Surgery: Yes (LAP CHOLEY, ABDOMINAL HERNIA REPAIR) Hx of Implantable Prosthesis: No Hx Post-Op Nausea and Vomiting: No Hx Cancer Surgery: No Hx Thoracic Surgery: No Hx Orthopedic: Yes (L5 DISCECTOMY, R TKA) Hx Urinary Tract Surgery: Yes (CYSTOSCOPY (LOCAL)) Family History Colon CA Social History Smoking Status: Former Smoker Hx Substance Use: No Hx Alcohol Use: Yes (OCCASSIONALLY (1-2 SHOTS/MONTH)) Allergies Coded Allergies: Penicillins (Verified Allergy, Intermediate, RASH, 06/18/18) Sulfa Antibiotics (Verified Allergy, Intermediate, RASH, 06/18/18) Gluten (Verified Allergy, Mild, GI SYMPTOMS, 06/18/18) Lactose Intolerance (GI) (Verified Allergy, Mild, GI SYMPTOMS, 06/18/18) Tramadol (Verified Allergy, Mild, HALLUCINATIONS, 06/18/18) Statins (Verified Adverse Reaction, Intermediate, MUSCLE WEAKNESS, BRAIN FOG, 06/18/18) Current Medications Reported Home Medications Medications Dose Route/Sig Max Daily Dose Days Date Category Dose Instructions Cleocin (Clindamycin Hcl) 300 Mg Cap 600 Mg PO DAILY PRN 06/18/18 Reported Novolog Flexpen (Insulin Aspart) 100 Units/Ml Inj SC DIRECTED 06/18/18 Reported Tylenol Arthritis Ext Rel (Acetaminophen) 650 Mg Cplt 1,300 Mg PO HS PRN 06/18/18 Reported Glucosamine Chondroitin 1 (Fysuqngenqf-Dijoefoqlzb-Imz C-) 1 Cap Cap 2,400 Mg PO DAILY 06/18/18 Reported Metamucil (Psyllium) 0.52 Gm Cap 1 Dose PO HS 11/12/17 Reported Ventolin Hfa (Albuterol) 200 Puffs/40327 Mcg Aers 2 Puffs INH Q6H PRN 11/12/17 Reported Aspirin 81 Mg Tab 81 Tab PO QAM 11/12/17 Reported Flonase Allergy Relief (Fluticasone Propionate (Nasal)) 50 Mcg/Act Spr 1 [place] LILA QAM 09/18/17 Reported Doxycycline (Doxycycline (Monohydrate)) 50 Mg Cap 1 Tab PO 1200 09/18/17 Reported B-12 (Cyanocobalamin) 1,000 Mcg Cap 1 Cap PO QPM 09/18/17 Reported Crestor (Rosuvastatin Calcium) 5 Mg Tab 5 Mg PO 5XWK 03/21/17 Reported TAKE ONE TABLET EVERY SATURDAY & SATURDAY UNTIL FURTHER INSTRUCTED Ubiquinol 100 Mg Cap 1 Cap PO QPM 06/13/16 Reported Vitamin D3 (Cholecalciferol) 2,000 Unit Cap 2,000 Inter.unit PO BID 06/13/16 Reported Flomax (Tamsulosin Hcl) 0.4 Mg Cap 0.4 Mg PO HS 06/13/16 Reported Avodart (Dutasteride) 0.5 Mg Cap 0.5 Mg PO HS 06/13/16 Reported Synthroid (Levothyroxine Sodium) 25 Mcg Tab 25 Mcg PO QAM 06/13/16 Reported Accupril (Quinapril Hcl) 10 Mg Tab 10 Mg PO QPM 06/13/16 Reported Glimepiride 4 Mg Tab 4 Mg PO BID 05/16/16 Reported Plavix (Clopidogrel Bisulfate) 75 Mg Tab 75 Mg PO QPM 07/29/13 Reported TO STOP 7 DAYS PRIOR TO SURGERY PER SURGEON Vital Signs Weight (Kilograms): 93.64 Height (Feet): 5 Height (Inches): 11 Date Time Temp Pulse Resp B/P (MAP) Pulse Ox O2 Delivery O2 Flow Rate FiO2 06/26/18 12:31 36.8 70 20 152/76 (101) 96 Room Air Physical Exam General Appearance: WD/WN, no apparent distress Respiratory/Chest: Auscultation: breath sounds normal Cardiovascular: Heart Auscultation: RRR Abdomen: Bowel Sounds: normal Inspection & Palpation: soft, non-distended, no tenderness, guarding & rebound Assessment and Plan Assessment: 78 yo CM who presents for EGD secondary to dysphagia and GERD. Plan: Proceed with EGD.
--- NOTE | 2018-06-26 14:09 | Discharge Instructions ---
Endoscopy Patient Instructions Date / Procedure(s) Performed Jun 26, 2018. EGD Allergy Information Coded Allergies: Penicillins (Verified Allergy, Intermediate, RASH, 06/18/18) Sulfa Antibiotics (Verified Allergy, Intermediate, RASH, 06/18/18) Gluten (Verified Allergy, Mild, GI SYMPTOMS, 06/18/18) Lactose Intolerance (GI) (Verified Allergy, Mild, GI SYMPTOMS, 06/18/18) Tramadol (Verified Allergy, Mild, HALLUCINATIONS, 06/18/18) Statins (Verified Adverse Reaction, Intermediate, MUSCLE WEAKNESS, BRAIN FOG, 06/18/18) Discharge Date / Findings Jun 26, 2018. Gastritis s/p biopsies Esophageal stricture s/p dilation Medication Instructions Stopped Medication(s): ASPIRIN PLAVIX GLUCOSIMINE 1) Start Pantoprazole 40mg by mouth each morning 1/2 hour prior to breakfast. 2) OK to resume all medications today as prescribed Reported Home Medications Medications Dose Route/Sig Max Daily Dose Days Date Category Dose Instructions Cleocin (Clindamycin Hcl) 300 Mg Cap 600 Mg PO DAILY PRN 06/18/18 Reported Novolog Flexpen (Insulin Aspart) 100 Units/Ml Inj SC DIRECTED 06/18/18 Reported Tylenol Arthritis Ext Rel (Acetaminophen) 650 Mg Cplt 1,300 Mg PO HS PRN 06/18/18 Reported Glucosamine Chondroitin 1 (Oynsmurvknj-Aqpaluszsvr-Vhd C-) 1 Cap Cap 2,400 Mg PO DAILY 06/18/18 Reported Metamucil (Psyllium) 0.52 Gm Cap 1 Dose PO HS 11/12/17 Reported Ventolin Hfa (Albuterol) 200 Puffs/41481 Mcg Aers 2 Puffs INH Q6H PRN 11/12/17 Reported Aspirin 81 Mg Tab 81 Tab PO QAM 11/12/17 Reported Flonase Allergy Relief (Fluticasone Propionate (Nasal)) 50 Mcg/Act Spr 1 [place] LILA QAM 09/18/17 Reported Doxycycline (Doxycycline (Monohydrate)) 50 Mg Cap 1 Tab PO 1200 09/18/17 Reported B-12 (Cyanocobalamin) 1,000 Mcg Cap 1 Cap PO QPM 09/18/17 Reported Crestor (Rosuvastatin Calcium) 5 Mg Tab 5 Mg PO 5XWK 03/21/17 Reported TAKE ONE TABLET EVERY SATURDAY & SATURDAY UNTIL FURTHER INSTRUCTED Ubiquinol 100 Mg Cap 1 Cap PO QPM 06/13/16 Reported Vitamin D3 (Cholecalciferol) 2,000 Unit Cap 2,000 Inter.unit PO BID 06/13/16 Reported Flomax (Tamsulosin Hcl) 0.4 Mg Cap 0.4 Mg PO HS 06/13/16 Reported Avodart (Dutasteride) 0.5 Mg Cap 0.5 Mg PO HS 06/13/16 Reported Synthroid (Levothyroxine Sodium) 25 Mcg Tab 25 Mcg PO QAM 06/13/16 Reported Accupril (Quinapril Hcl) 10 Mg Tab 10 Mg PO QPM 06/13/16 Reported Glimepiride 4 Mg Tab 4 Mg PO BID 05/16/16 Reported Plavix (Clopidogrel Bisulfate) 75 Mg Tab 75 Mg PO QPM 07/29/13 Reported TO STOP 7 DAYS PRIOR TO SURGERY PER SURGEON Provider Instructions Activity Restrictions - No exercising or heavy lifting for 24 hours. - Do not drink alcohol the day of the procedure. - Do not drive a car or operate machinery until the day after the procedure. - Do not make any important decisions or sign important papers in 24 hours after the procedure. Following Day: - Return to full activity which may include returning to work/school. Diet Start your diet with liquids and light foods (jello, soup, juice, toast). Then eat your usual diet if not nauseated. Treatment For Common After Affects For mild abdominal pain, bloating, or excessive gas: - Rest - Eat lightly - Lie on right side Follow-Up Information Follow-up with DR. GERONIMO as scheduled Anesthesia Information What You Should Know You have had a procedure that required some medicine to reduce anxiety and discomfort. This treatment is called moderate sedation. After receiving the treatment, you may be sleepy, but you will be able to breathe on your own. The effects of the treatment may last for several hours. Follow these instructions along with Activity/Diet recommendations noted above: * Do NOT do anything where dizziness or clumsiness would be dangerous. * Rest quietly at home today, then you can be up and about tomorrow. * Have a responsible person stay with you the rest of today. * You may have had an I.V. today. If so, you may take the dressing off later today. Recommendations Call your doctor if: * Trouble breathing * Continuous vomiting for more than 24 hours * Temperature above 101 degrees * Severe abdominal pain or bloating * Pain not relieved by pain medicine ordered * There is increased drainage or redness from any incision * A large amount of rectal bleeding greater than 2-3 tablespoons. (If you had a polyp/s removed or have hemorrhoids, a small amount of blood - from the rectum is to be expected.) * You have any unanswered questions or concerns. IN THE EVENT OF A SERIOUS EMERGENCY, GO TO THE NEAREST EMERGENCY ROOM Your discharge instructions were prepared by provider Tomer David. Patient Instructions Signature Page Sam Castillo Patient (or Guardian) Signature/Date: I have read and understand the instructions given to me by my caregivers. Caregiver/RN/Doctor Signature/Date: The above-named patient and/or guardian has received patient instructions on this date. + Original Patient Signature Page (only) stays with chart. Please make copy for patient.
--- NOTE | 2018-06-26 14:22 | Anesthesiology Progress Note ---
Anesthesia Post Op Note Date & Time Jun 26, 2018 at 14:22 Vital Signs Pain Intensity: 0 Vital Signs Past 12 Hours Date Time Temp Pulse Resp B/P (MAP) Pulse Ox O2 Delivery O2 Flow Rate FiO2 06/26/18 14:11 67 20 154/67 (96) 97 Room Air 06/26/18 12:31 36.8 70 20 152/76 (101) 96 Room Air Notes Mental Status: alert / awake / arousable, participated in evaluation Pt Amnestic to Procedure: Yes Nausea / Vomiting: adequately controlled Pain: adequately controlled Airway Patency, RR, SpO2: stable & adequate BP & HR: stable & adequate Hydration State: stable & adequate Anesthetic Complications: no major complications apparent
[2018-06-26 14:43] VITALS: BP 165/86; PULSE 58; O2SAT 99
--- NOTE | 2018-06-26 14:56 | GI REPORT ---
Patient Name: Sam Castillo Procedure Date: 06/26/2018 12:51 PM Date of : 1940 Admit Type: Outpatient Age: 78 Gender: Male Attending MD: Tomer David DO Procedure: Upper GI endoscopy Providers: Tomer David DO Referring MD: Missy Mims Indications: Dysphagia Medicines: Monitored Anesthesia Care Complications: No immediate complications. Estimated Blood Loss: Estimated blood loss: none. Procedure: Pre-Anesthesia Assessment: - Prior to the procedure, a History and Physical was performed, and patient medications and allergies were reviewed. The patient's tolerance of previous anesthesia was also reviewed. The risks and benefits of the procedure and the sedation options and risks were discussed with the patient. All questions were answered, and informed consent was obtained. Prior Anticoagulants: The patient has taken Xarelto (rivaroxaban), last dose was 4 days prior to procedure. ASA Grade Assessment: II - A patient with mild systemic disease. After reviewing the risks and benefits, the patient was deemed in satisfactory condition to undergo the procedure. After obtaining informed consent, the endoscope was passed under direct vision. Throughout the procedure, the patient's blood pressure, pulse, and oxygen saturations were monitored continuously. The scope was introduced through the mouth, and advanced to the second part of duodenum. The upper GI endoscopy was accomplished without difficulty. The patient tolerated the procedure well. Findings: A few benign-appearing, intrinsic stenoses were found 35 cm from the incisors. These stenoses were moderately severe and the narrowest stenosis measured 1.4 cm (inner diameter) x 4 cm (in length). The stenoses were traversed. A guidewire was placed and the scope was withdrawn. Dilation was performed with a Savary dilator with mild resistance at 48 Fr and 54 Fr. Localized moderate inflammation characterized by erythema was found in the gastric antrum. Biopsies were taken with a cold forceps for histology. The examined duodenum was normal. Impression: - Benign-appearing esophageal stenoses. Dilated. - Gastritis. Biopsied. - Normal examined duodenum. Recommendation: - Resume previous diet. - Continue present medications. - Await pathology results. - Return to primary care physician as previously scheduled. Tomer David DO 06/26/2018 2:55:38 PM This report has been signed electronically. Note Initiated On: 06/26/2018 12:51 PM Number of Addenda: 0 I attest to the content of the Intraoperative Record and orders documented therein, exceptions below {[id number]}
== END | disposition home or self-care (01) ==
LOC: C.GI 11:47
PROVIDERS: ATTEND Internal Medicine
DX: R13.10 Dysphagia, unspecified (principal); K22.2 Esophageal obstruction; K29.50 Unspecified chronic gastritis without bleeding; E11.9 Type 2 diabetes mellitus without complications; Z80.0 Family history of malignant neoplasm of digestive organs; Z87.891 Personal history of nicotine dependence; Z88.0 Allergy status to penicillin; Z88.2 Allergy status to sulfonamides; Z88.8 Allergy status to other drugs, medicaments and biological substances; Z79.82 Long term (current) use of aspirin; Z79.899 Other long term (current) drug therapy; Z79.02 Long term (current) use of antithrombotics/antiplatelets; Z85.46 Personal history of malignant neoplasm of prostate; Z86.73 Personal history of transient ischemic attack (TIA), and cerebral infarction without residual deficits

== ENCOUNTER 2019-07-13 14:56 | Observation (INO) ==
[2019-07-13] MEDS ORDERED: SODIUM CHLORIDE 0.9% 500 ML IV ONE (15:37)
[2019-07-13 16:05] LABS: Basophils # (auto) 0.01 K/uL (0-0.2); Basophils % (auto) 0.2 %; Eosinophils # (auto) 0.08 K/uL (0-0.5); Eosinophils % (auto) 1.3 %; Hematocrit (blood only) 38.7 % (42-52); Hemoglobin 13.6 g/dL (14.0-18.0); Immature Granulocytes # (auto) 0.02 K/uL (0.00-0.02); Immature Granulocytes % (auto) 0.3 %; Lymphocytes # (auto) 1.26 K/uL (1.2-3.4); Lymphocytes % (auto) 20.6 %; Mean Corpuscular Hemoglobin 33.7 pg (25-34); Mean Corpuscular Hgb Conc 35.1 g/dL (32-36); Mean Corpuscular Volume 95.8 fL (80-100); Mean Platelet Volume 9.8 fL (7.4-10.4); Monocytes % (auto) 16.3 %; Neutrophils # (auto) 3.76 K/uL (1.4-6.5); Neutrophils % (auto) 61.3 %; Platelet Count 164 K/uL (130-400); RDW Coefficient of Variation 13.3 % (11.5-14.5); RDW Standard Deviation 46.2 fL (36.4-46.3); Red Blood Count 4.04 M/uL (4.7-6.1); White Blood Count 6.13 K/uL (4.8-10.8)
--- NOTE | 2019-07-13 16:05 | XRay Report ---
XR chest 1V portable CLINICAL HISTORY: Chest Pain dyspnea COMPARISON STUDY: 09/18/2017 FINDINGS: The bones soft tissues and hemidiaphragms are normal. The cardiomediastinal silhouette is n ormal. The lungs are clear. The pulmonary vasculature is normal. IMPRESSION: Negative chest. The above report was generated using voice recognition software. It may contain grammatical, syntax or spelling errors. Electronically signed by: Jacky Alvarado M.D. 07/13/2019 4:04 PM
[2019-07-13 16:17] LABS: Prothrombin Time 9.9 Seconds (9.0-12.0)
[2019-07-13 16:22] LABS: Alanine Aminotransferase 30 U/L (12-78); Albumin Level 3.9 gm/dl (3.4-5.0); Aspartate Aminotransferase 21 U/L (15-37); BUN Creatinine Ratio 14.6 (10-20); Blood Urea Nitrogen 25 mg/dl (7-18); Calcium 8.6 mg/dl (8.5-10.1); Carbon Dioxide 26 mmol/L (21-32); Chloride 108 mmol/L (98-107); Creatinine Clr Calc Pharmacy 41.5 ml/min; Est GFR (African American) 42.6; Est GFR (Non-African American) 36.7; Glucose 146 mg/dl (70-99); Lipase 79 U/L (73-393); Sodium 141 mmol/L (136-145)
[2019-07-13 16:33] LABS: Albumin Globulin Ratio 1.3 (0.9-2); Alkaline Phosphatase 85 U/L (45-117); Bilirubin,Total 0.3 mg/dl (0.2-1); Globulin 2.9 gm/dl (2.5-4.0); Phosphorus 2.9 mg/dl (2.5-4.9); Total Protein 6.8 gm/dl (6.4-8.2); Troponin I < 0.015 ng/ml (0-0.045)
--- NOTE | 2019-07-13 16:36 | CT Scan Report ---
CT head/brain wo con CT DOSE: 729.78 mGycm HISTORY: syncope TECHNIQUE: Multiaxial CT images of the head were performed without the use of intravenous contrast. A dose lowering technique was utilized adhering to the principles of ALARA. Comparison: None. Findings: The paranasal sinuses and mastoid air cells are clear. The calvarium and skull base are int act. The ventricles and sulci are within normal limits. There is no mass, hematoma, midline shift, or acute infarct. Impression: No acute intracranial abnormality. The above report was generated using voice recognition software. It may contain grammatical, syntax or spelling errors. Electronically signed by: Jacky Alvarado M.D. 07/13/2019 4:34 PM
--- NOTE | 2019-07-13 18:39 | History & Physical Report ---
Date of Service July 13, 2019 Assessment & Plan (1) Syncope: Admit to PCU on telemetry for observation Vital signs every 4 hours Since patient had a episode of week ago and does not have any neurological deficit at this time, we will not do neurochecks. MRI head and neck without contrast due to CKD stage III CBC CMP BMP A1c lipid panel in a.m. Iron studies for anemia Cardiology consult DVT prophylaxis with heparin 5000 every 12 hours Full code Present on Admission?: Yes (2) Stage III chronic kidney disease: Appears that patient is at his baseline 1.70 creatinine Avoid nephrotoxic agents Present on Admission?: Yes (3) Neuroendocrine tumor: Stable patient is checked at [facility]. No issues at this time no progress ion of tumors. Present on Admission?: Yes (4) Hypothyroidism: Continue home dose levothyroxine TSH within normal limits (5) Hypertension: Continue quinapril 10 mg p.o. daily (6) Diabetic peripheral neuropathy: Accu-Cheks before meals and at bedtime Sliding scale insulin managed per pharmacy Present on Admission?: Yes (7) Acid reflux: Hold pantoprazole due to possible nephrotoxicity patient switched to Famotidine 20 managed milligrams p.o. per renal clearance Present on Admission?: Yes (8) Enlarged prostate with lower urinary tract symptoms (LUTS): Continue finasteride and tamsulosin Present on Admission?: Yes History of Present Illness Chief Complaint: Syncope Primary Care Provider: Dick Adams MD Patient is a 79 years old male with past medical history of hypertension, diabetes mellitus type 2, transient ischemic attack, mild carotid stenosis, GERD, hemorrhagic cyst on the kidneys, anemia, CKD stage III, osteoarthritis, hypercholesterolemia, BPPV, presents to the emergency room with his after he went to his PCP office and reported that he passed out approximately week ago while he was sitting at the computer in the basement. Patient said that he does not have any memory of the event but that he blacked out and immediately reports that that event. Patient felt very confused. Patient said that he never had similar episode before. Patient denies falling hitting his head or any part of his body when this occurred. Patient said he took aspirin 325 when that occurred. Patient is in his usual activity ambulates on his own good p.o. intake. Patient denies fever chills headache chest pain shortness of breath hemoptysis hematuria nausea vomiting dysuria abdominal pain frequency urgency melena. Labs were reviewed sodium 141, potassium 4, chloride 108, anion gap 7, BUN 25, creatinine 1.75, GFR 41.5, hemoglobin A1c 7.2, lipase 79 TSH 2.38., Hemoglobin 13.6, hematocrit 38.7, white blood cell 6.13, platelets 164. CT head no acute intracranial abnormality. Chest x-ray is negative chest the cardiomediastinal silhouette is normal. EKG, normal sinus rhythm with first- degree AV block, left bundle branch block no ST segment elevation or depression. Decision was made to admit patient for observation on telemetry. Allergies Allergy/AdvReac Type Severity Reaction Status Date / Time Penicillins Allergy Intermediate RASH Verified 07/13/19 17:22 Sulfa (Sulfonamide Allergy Intermediate RASH Verified 07/13/19 17:22 Antibiotics) gluten Allergy Mild GI SYMPTOMS Verified 07/13/19 17:22 lactose Allergy Mild GI SYMPTOMS Verified 07/13/19 17:22 tramadol Allergy Mild HALLUCINATI Verified 07/13/19 17:22 ONS oxycodone Allergy Unknown Verified 07/13/19 17:22 simvastatin Allergy Unknown Verified 07/13/19 17:22 Zegdxur-Muy-Hkb Reductase AdvReac Intermediate MUSCLE Verified 07/13/19 17:22 Inhibitor WEAKNESS, BRAIN FOG Home Medications Home Medications Medication Instructions Recorded Confirmed Type albuterol sulfate [Ventolin HFA] 2 puff INHALATION Q6 PRN 07/13/19 07/13/19 History aspirin [Aspir-81] 81 mg PO DAILY 07/13/19 07/13/19 History cholecalciferol (vitamin D3) 4,000 unit PO DAILY 07/13/19 07/13/19 History [Vitamin D3] clopidogrel [Plavix] 75 mg PO DAILY 07/13/19 07/13/19 History cyanocobalamin (vitamin B-12) 0 mcg PO DAILY 07/13/19 07/13/19 History [Vitamin B-12] doxycycline hyclate 50 mg PO DAILY 07/13/19 07/13/19 History finasteride [Proscar] 5 mg PO HS 07/13/19 07/13/19 History folic acid 800 mcg PO DAILY 07/13/19 07/13/19 History glimepiride [Amaryl] 4 mg PO BID 07/13/19 07/13/19 History insulin lispro [Humalog U-100 1 - 2 unit SUBCUT QPM 07/13/19 07/13/19 History Insulin] levothyroxine [Synthroid] 50 mcg PO DAILY 07/13/19 07/13/19 History pantoprazole [Protonix] 40 mg PO DAILY 07/13/19 07/13/19 History quinapril [Accupril] 10 mg PO DAILY 07/13/19 07/13/19 History rosuvastatin [Crestor] 5 mg PO DAILY 07/13/19 07/13/19 History tamsulosin [Flomax] 0.4 mg PO HS 07/13/19 07/13/19 History Past Med/Surg History Medical History History of stroke with residual deficit Acid reflux TIA (transient ischemic attack) Diabetes Hypercholesteremia Surgical History H/O colonoscopy H/O hernia repair History of knee replacement History of knee surgery History of tonsillectomy and adenoidectomy Hx of cholecystectomy Family History Brother Prostate cancer Colon cancer Grandfather Rectal cancer Unknown Diabetes Heart disease Hypertension Cancer Social History Feels Safe at Home: Yes Smoking Status: Former smoker Review of Systems Review of Systems: All systems reviewed & are unremarkable except as noted in HPI & below Physical Exam Constitutional: WD/WN, vitals as above well developed Eyes: PERRL, conjunctivae normal, anicteric sclerae ENMT: external ear and nose normal, oropharynx normal Ears: + hearing impairment Neck: trachea midline, no thyromegaly Respiratory: normal respiratory effort, lungs clear to auscultation Cardiovascular: RRR, no murmur, no edema Chest (Breasts): normal inspection/palpation of breasts Gastrointestinal (Abdomen): normal bowel sounds, soft, nontender, no hepatosplenomegaly Musculoskeletal: no cyanosis or clubbing, extremities motor strength 5/5 Skin: no rashes, warm and dry Neurologic: patellar DTR's 2+ bilat, sensation intact Psychiatric: A+Ox3, euthymic affect Lymphatic: no cervical or axillary lymphadenopathy Results & Data Vital Signs (Past 12 Hours) Vital Signs Temp Pulse Pulse Resp BP BP Pulse Ox 07/13/19 18:10 74 18 171/80 H 98 07/13/19 17:01 59 L 18 161/76 H 99 07/13/19 16:02 97 07/13/19 14:59 36.7 C 81 20 176/84 H 98 Code Status & VTE Plan Code Status Full code VTE Prophylaxis Plan VTE Prophylaxis will be ordered: Yes PG Care Time/CCT Total # of Minutes Spent Total Time Spent with Patient: Total time spent is greater than 50% in coordination of care (as documented) at patient's floor/unit and/or counseling patient:
[2019-07-13] MEDS ORDERED: DC ALL PREVIOUSLY ORDERED DIABETES MEDS ONE (19:36)
[2019-07-13] MEDS ORDERED: ALBUTEROL HFA 8 GM INHALER INH PRN (19:36)
[2019-07-13] MEDS ORDERED: DEXTROSE 50% 50 ML SYRINGE IV PRN (19:36)
[2019-07-13] MEDS ORDERED: POLYETHYLENE (MIRALAX) 17 GM PACK PO PRN (19:36)
[2019-07-13] MEDS ORDERED: ASPIRIN 325 MG ECTAB PO SCH (19:36)
[2019-07-13] MEDS ORDERED: CARBOHYDRATES FOR HYPOGLYCEMIA PO PRN (19:36)
[2019-07-13] MEDS ORDERED: ZOLPIDEM TARTRATE 5 MG TAB PO PRN (19:36)
[2019-07-13] MEDS ORDERED: GLUCOSE 40% GEL 15 GM TUBE PO PRN (19:36)
[2019-07-13] MEDS ORDERED: GLUCOSE 10 TABS/TUBE PO PRN (19:36)
[2019-07-13] MEDS ORDERED: GLUCAGON FOR INJ 1 MG VIAL SQ PRN (19:36)
[2019-07-13] MEDS ORDERED: ACETAMINOPHEN 325 MG TAB PO PRN (19:36)
[2019-07-13] MEDS ORDERED: PHARMACY GLYCEMIC MGMT CONSULT PRN (19:55)
--- NOTE | 2019-07-13 20:50 | Magnetic Resonance Report ---
MR brain wo con HISTORY: Mental status change syncope TECHNIQUE: Multiplanar multisequence MRI of the brain was performed without the use of contrast. COMPARISON STUDY: CT study same date FINDINGS: There are no areas of restricted diffusion to suggest acute infarction. The midline structu res are intact. The paranasal sinuses are clear. The mastoid air cells are clear. The ventricles and sulci are within normal limits for age. There is no mass, hematoma, midline shift. The major vascular flow-voids at the skull base are well maintained. Mild age-related atrophy and chronic small vessel change IMPRESSION: No acute intracranial abnormality. Mild age-related atrophy and chronic small vessel change The above report was generated using voice recognition software. It may contain grammatical, syntax or spelling errors. Electronically signed by: Jacky Alvarado M.D. 07/13/2019 8:49 PM
--- NOTE | 2019-07-13 21:17 | Magnetic Resonance Report ---
MR angio neck wo con CLINICAL HISTORY: syncope mental status change COMPARISON STUDY: None. TECHNIQUE: A 1.5 Renae magnet was utilized. 2-D and 3-D [id number] imaging was performed to obt ain unenhanced MRA of the neck. NASCET criteria were utilized to estimate the degree of carotid sten osis. FINDINGS: Near none diagnostic study due to patient motion. No major evidence for a significant steno tic process of the left carotid system. Moderate throughout significant stenosis origin right internal carotid artery. The vertebral basilar system is poorly seen although there is a possible high-grade distal stenosis of the distal left vert ebral artery. IMPRESSION: 1. Near nondiagnostic study due to patient motion. 2. Moderate to rather significant stenosis origin right internal carotid artery. This is grossly chapito mated at 60-80% 3. Probable high-grade stenosis distal left vertebral artery The above report was generated using voice recognition software. It may contain grammatical, syntax or spelling errors. Electronically signed by: Jacky Alvarado M.D. 07/13/2019 9:16 PM
[2019-07-13] MEDS: FAMOTIDINE 20 MG TAB PO SCH (21:23)
[2019-07-13] MEDS: HEPARIN SOD 5,000 UNIT/0.5 ML VIAL SQ SCH (21:24)
[2019-07-13] MEDS: TAMSULOSIN HCL 0.4 MG CAP PO SCH (21:24)
[2019-07-13] MEDS: FINASTERIDE 5 MG TAB PO SCH (21:24)
--- NOTE | 2019-07-13 21:36 | Emergency Department Note ---
Entered by Eva Espana acting as a scribe for History of Present Illness General Chief complaint: Fall Stated complaint: SYNCOPE, REFERRED BY DR. GERONIMO Time Seen by Provider: 07/13/19 15:19 Source: patient History of Present Illness Provider complaint: Syncope Onset (ago): week(s) 1 Location: head Pain Consistency: + other (episode) Maximum Pain Intensity: 1 Quality: + other (syncope) Associated symptoms: + denies other symptoms (congestion), + confusion, + fever/chills (Negative Fever. Positive chills. ), + headaches and + other (Diarrhea, lower abdominal pain, balance problems); no cough and no nausea/vomiting The patient is a 79 year old male who presents to the Emergency Room with complaints of an episode of syncope that occurred a week and a day ago. The patient reports he was sitting at his computer scrolling through the Internet when he "blacked out." The patient states he did not hit his head and woke up very confused. The patient noted he did not know how long he was unconscious for but when he woke up his computer was off. The patient reports he has been experiencing diarrhea, chills, and a constant sinus headache. Additionally, the patient reports some lower abdominal pain and balance problems. The patient denies any nausea, vomiting, cough, and congestion. The patient denies any history of syncope but does have a history of a TIA that occurred back in 2011 that effected the patient's ride side coordination. Home Medications Home Medications Medication Instructions Recorded Confirmed Type albuterol sulfate [Ventolin HFA] 2 puff INHALATION Q6 PRN 07/13/19 07/13/19 History aspirin [Aspir-81] 81 mg PO DAILY 07/13/19 07/13/19 History cholecalciferol (vitamin D3) 4,000 unit PO DAILY 07/13/19 07/13/19 History [Vitamin D3] clopidogrel [Plavix] 75 mg PO DAILY 07/13/19 07/13/19 History cyanocobalamin (vitamin B-12) 0 mcg PO DAILY 07/13/19 07/13/19 History [Vitamin B-12] doxycycline hyclate 50 mg PO DAILY 07/13/19 07/13/19 History finasteride [Proscar] 5 mg PO HS 07/13/19 07/13/19 History folic acid 800 mcg PO DAILY 07/13/19 07/13/19 History glimepiride [Amaryl] 4 mg PO BID 07/13/19 07/13/19 History insulin lispro [Humalog U-100 1 - 2 unit SUBCUT QPM 07/13/19 07/13/19 History Insulin] levothyroxine [Synthroid] 50 mcg PO DAILY 07/13/19 07/13/19 History pantoprazole [Protonix] 40 mg PO DAILY 07/13/19 07/13/19 History quinapril [Accupril] 10 mg PO DAILY 07/13/19 07/13/19 History rosuvastatin [Crestor] 5 mg PO DAILY 07/13/19 07/13/19 History tamsulosin [Flomax] 0.4 mg PO HS 07/13/19 07/13/19 History Allergies Allergy/AdvReac Type Severity Reaction Status Date / Time Penicillins Allergy Intermediate RASH Verified 07/13/19 17:22 Sulfa (Sulfonamide Allergy Intermediate RASH Verified 07/13/19 17:22 Antibiotics) gluten Allergy Mild GI SYMPTOMS Verified 07/13/19 17:22 lactose Allergy Mild GI SYMPTOMS Verified 07/13/19 17:22 tramadol Allergy Mild HALLUCINATI Verified 07/13/19 17:22 ONS oxycodone Allergy Unknown Verified 07/13/19 17:22 simvastatin Allergy Unknown Verified 07/13/19 17:22 Hxmyprl-Par-Rsa Reductase AdvReac Intermediate MUSCLE Verified 07/13/19 17:22 Inhibitor WEAKNESS, BRAIN FOG Past Med/Surg History Medical History History of stroke with residual deficit Acid reflux TIA (transient ischemic attack) Diabetes Hypercholesteremia Surgical History H/O colonoscopy H/O hernia repair History of knee replacement History of knee surgery History of tonsillectomy and adenoidectomy Hx of cholecystectomy Family History Brother Prostate cancer Colon cancer Grandfather Rectal cancer Unknown Diabetes Heart disease Hypertension Cancer Social History Preferred Language: Hungarian Communication Ability: Effective 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 and A total of 10 systems reviewed and were otherwise negative Physical Exam Vital Signs Vital Signs - 24 hr 07/13/19 14:59 07/13/19 16:02 07/13/19 17:01 Temperature 36.7 C Temperature Source Oral Sepsis Action Taken by Nursing No Action Required Pulse Rate 81 Pulse Rate [Apical] 59 L Respiratory Rate 20 18 Respiratory Effort / Characteristics Non-Labored Spontaneous Respiratory Depth Normal Respiratory Pattern Regular Blood Pressure 176/84 H Blood Pressure [Left Arm] 161/76 H Blood Pressure Mean 114 Blood Pressure Mean [Left Arm] 104 Pulse Oximetry 98 97 99 Oxygen Delivery Method Room Air Room Air Room Air 07/13/19 18:10 Temperature Temperature Source Sepsis Action Taken by Nursing Pulse Rate Pulse Rate [Apical] 74 Respiratory Rate 18 Respiratory Effort / Characteristics Respiratory Depth Respiratory Pattern Blood Pressure Blood Pressure [Left Arm] 171/80 H Blood Pressure Mean Blood Pressure Mean [Left Arm] 110 Pulse Oximetry 98 Oxygen Delivery Method Room Air GENERAL: Awake, alert, well-appearing, in no distress HENT: Normocephalic, atraumatic. Oropharynx with dry mucous membranes and otherwise unremarkable. EYES: Normal conjunctiva. Sclera non-icteric. EOMI. No nystamgus. PEARRL. NECK: Supple. No nuchal rigidity. FROM. No JVD. RESPIRATORY: Clear to auscultation bilaterally. CARDIAC: Regular rate, normal rhythm. Extremities warm and well perfused. Pulses equal. ABDOMEN: Soft, non-distended. No tenderness to palpation. No rebound or guarding. No masses. RECTAL: Deferred. MUSCULOSKELETAL: Chest examination reveals no tenderness. The back is symmetrical on inspection without obvious abnormality. There is no CVA tenderness to palpation. No joint edema. LOWER EXTREMITIES: Calves are equal size bilaterally and non-tender. No edema. No discoloration. NEURO: Normal sensorium. No sensory or motor deficits noted. Cerebellar function intact, including finger to nose, alternating palms, heel to saunders. 5/5 strength and SILT x4 extremities. Steady gait. SKIN: No rash or jaundice noted. Course 1525: Past medical records reviewed. The patient was evaluated in room C06. A complete history and physical exam was performed. 1732: Upon reevaluation, the patient is resting comfortably. I discussed findings and results with him. He verbalized agreement of the treatment plan. 1748: I spoke with Dr[facility] about the patient's case. She will accept the patient for further evaluation. Consultations Consultation #1: I spoke with Dr. Debbi Denise about the patient's case. She will accept the patient for further evaluation. Time: 17:48 Administered Medications Famotidine (Pepcid) 20 mg PO DAILY [facility] Stop: 08/12/19 19:35 Last Admin: 07/13/19 21:23 Dose: 20 mg Documented by: [id number] Finasteride (Proscar) 5 mg PO HS [facility] Stop: 08/12/19 20:59 Last Admin: 07/13/19 21:24 Dose: 5 mg Documented by: [id number] Heparin Sodium (Porcine) (Heparin Sodium (Porcine)) 5,000 units SQ Q12 [facility] Stop: 08/12/19 20:59 Last Admin: 07/13/19 21:24 Dose: Not Given Documented by: [id number] Insulin Aspart (Novolog Flexpen) 0 units SC ACHS [facility]; Protocol Stop: 08/12/19 20:59 Last Admin: 07/13/19 22:05 Dose: Not Given Documented by: [id number] Cosigned by: [id number] Tamsulosin HCl (Flomax) 0.4 mg PO HS [facility] Stop: 08/12/19 20:59 Last Admin: 07/13/19 21:24 Dose: 0.4 mg Documented by: [id number] Discontinued Medications Sodium Chloride (Nss) 500 mls @ 999 mls/hr IV .Q31M ONE Stop: 07/13/19 16:07 Last Infusion: 07/13/19 16:43 Dose: 0 mls/hr Documented by: [id number] Admin: 07/13/19 15:56 Dose: 999 mls/hr Documented by: [id number] Medical Decision Making Differential Diagnosis Differential diagnosis: Etiologies such as vasovagal event, infection, anemia, hypoglycemia, hypovolemia, electrolyte abnormalities, dysrhythmias, cardiac ischemia, cardiac tamponade, valvular heart disease, structural heart disease, seizure, vascular stenosis/dissection, pulmonary embolism, intracerebral event, toxicological process, neurologic event, as well as others were entertained. Medical Records Attestation: I reviewed the patient's medical records. Home Medications Current Medication List: was personally reviewed by me Laboratory Data Attestation: I reviewed the patient's lab results. Result diagrams: 07/13/19 15:56 07/13/19 15:56 Lab Results 07/13/19 07/13/19 07/13/19 Range/Units 15:56 15:56 15:56 WBC 6.13 (4.8-10.8) K/uL RBC 4.04 L (4.7-6.1) M/uL Hgb 13.6 L (14.0-18.0) g/dL Hct 38.7 L (42-52) % MCV 95.8 (80-100) fL MCH 33.7 (25-34) pg MCHC 35.1 (32-36) g/dL RDW Std Deviation 46.2 (36.4-46.3) fL RDW Coeff of Vinny 13.3 (11.5-14.5) % Plt Count 164 (130-400) K/uL MPV 9.8 (7.4-10.4) fL Immature Gran % (Auto) 0.3 % Neut % (Auto) 61.3 % Lymph % (Auto) 20.6 % [place] % (Auto) 16.3 % Eos % (Auto) 1.3 % Baso % (Auto) 0.2 % Immature Gran # (Auto) 0.02 (0.00-0.02) K/uL Neut # (Auto) 3.76 (1.4-6.5) K/uL Lymph # (Auto) 1.26 (1.2-3.4) K/uL [place] # (Auto) 1.00 H (0.11-0.59) K/uL Eos # (Auto) 0.08 (0-0.5) K/uL Baso # (Auto) 0.01 (0-0.2) K/uL PT 9.9 (9.0-12.0) Seconds INR 1.0 (0.9-1.1) Sodium 141 (136-145) mmol/L Potassium 4.0 (3.5-5.1) mmol/L Chloride 108 H (98-107) mmol/L Carbon Dioxide 26 (21-32) mmol/L Anion Gap 7.0 (3-11) BUN 25 H (7-18) mg/dl Creatinine 1.75 H (0.6-1.4) mg/dl Est Cr Clr Drug Dosing 41.5 ml/min Est GFR ( Amer) 42.6 Est GFR (Non-Af Amer) 36.7 BUN/Creatinine Ratio 14.6 (10-20) Glucose 146 H (70-99) mg/dl Calcium 8.6 (8.5-10.1) mg/dl Phosphorus 2.9 (2.5-4.9) mg/dl Magnesium 2.0 (1.8-2.4) mg/dl Total Bilirubin 0.3 (0.2-1) mg/dl AST 21 (15-37) U/L ALT 30 (12-78) U/L Alkaline Phosphatase 85 (45-117) U/L Troponin I < 0.015 (0-0.045) ng/ml Total Protein 6.8 (6.4-8.2) gm/dl Albumin 3.9 (3.4-5.0) gm/dl Globulin 2.9 (2.5-4.0) gm/dl Albumin/Globulin Ratio 1.3 (0.9-2) Lipase 79 (73-393) U/L TSH 2.380 (0.300-4.500) uIu/ml Imaging Data Radiologist's Impression: Radiology results as stated below per my review and the radiologist's interpretation: XR chest 1V portable CLINICAL HISTORY: Chest Pain dyspnea COMPARISON STUDY: 09/18/2017 FINDINGS: The bones soft tissues and hemidiaphragms are normal. The cardiomediastinal silhouette is normal. The lungs are clear. The pulmonary vasculature is normal. IMPRESSION: Negative chest. The above report was generated using voice recognition software. It may contain grammatical, syntax or spelling errors. Electronically signed by: Jacky Alvarado M.D. 07/13/2019 4:[address] head/brain wo con CT DOSE: 729.78 mGycm HISTORY: syncope TECHNIQUE: Multiaxial CT images of the head were performed without the use of intravenous contrast. A dose lowering technique was utilized adhering to the principles of ALARA. Comparison: None. Findings: The paranasal sinuses and mastoid air cells are clear. The calvarium and skull base are intact. The ventricles and sulci are within normal limits. There is no mass, hematoma, midline shift, or acute infarct. Impression: No acute intracranial abnormality. The above report was generated using voice recognition software. It may contain grammatical, syntax or spelling errors. Electronically signed by: Jacky Alvarado M.D. 07/13/2019 4:34 PM ECG Data Attestation: I personally reviewed and interpreted this ECG as follows: Indication: syncope Rate (beats per minute): 67 Rhythm: sinus rhythm Findings: + 1st degree AV block and + LBBB Comparison ECG Date: from (12/18/2017) Change: no significant change Blood Pressure Blood Pressure Findings: Elevated blood pressure Blood Pressure Disposition: Referred to patients primary care provider ROLDAN Narrative The patient is a pleasant 79 y/o gentleman with a pmhx of CKD, TIA, DM, DEANDRA who presents to the emergency department with syncopal episode at rest that happened last Saturday approximately 1 week ago per HPI. On arrival the patient is in NAD, AFVSS. Patient appears clinically dry. EKG with LBBB that is similar to prior EKG. No Sgarbossa criteria. CXR negative. WBC and, platelets wnl. H/H 13.6/38.7 similar to baseline. Chemistry without acidosis. Cr. 1.75 within baseline range. LFTs and electrolytes unremarkable. Troponin negative. CT head negative for acute process. Given syncopal episode at rest, reasonable to admit the patient for further monitoring/evaluation. Case d/w Dr. Reed, [facility] hospitalist, who will evaluate the patient for admission. Impression & Plan Syncope, CKD (chronic kidney disease) Discharge Plan Visit Data *Final* Discharge Date/Time: 07/13/19 18:51 Chief Complaint: Fall Stated Complaint: SYNCOPE, REFERRED BY DR. GERONIMO ED Provider: Grey Garcia Discharge Problem: Syncope, CKD (chronic kidney disease) Patient Disposition: Being Evaluated by Hospitalist Discharge Instructions Interventions: ED Discharge Assessment Last Done: 07/13/19 18:51 Discharge Problem: Syncope Qualifiers: Syncope type: unspecified Qualified Code(s): R55 - Syncope and collapse The scribe's documentation has been prepared under my direction and personally reviewed by me in its entirety. I confirm that the note above accurately reflects all work, treatment, procedures, and medical decision making performed by me.
[2019-07-13] MEDS: INSULIN ASPART 100 UNITS/ML 3 ML PEN SC SCH (22:05)
[2019-07-14 03:53] LABS: Appearance Urine Clear (Clear); Bacteria Urine Automated Negative (Negative); Bilirubin Urine Negative (Negative); Blood Urine 2+ (Negative); Color Urine Yellow; Epithelial Cell Urine Auto 0-5 /lpf (0-5); Glucose Urine UA Negative (Negative); Ketones Urine Negative (Negative); Leukocyte Esterase Urine Negative (Negative); Nitrite Urine Negative (Negative); Protein Urine Negative (Negative); RBC Urine Automated >30 /hpf (0-4); Specific Gravity Urine 1.013 (1.000-1.030); Urobilinogen Urine Negative (Negative); WBC Urine Automated 0 /hpf (0-5)
[2019-07-14] MEDS: LEVOTHYROXINE SODIUM 50 MCG TABLET PO SCH (05:59)
[2019-07-14 08:16] LABS: Basophils # (auto) 0.02 K/uL (0-0.2); Basophils % (auto) 0.4 %; Eosinophils # (auto) 0.09 K/uL (0-0.5); Eosinophils % (auto) 1.8 %; Hematocrit (blood only) 37.1 % (42-52); Hemoglobin 12.6 g/dL (14.0-18.0); Immature Granulocytes # (auto) 0.01 K/uL (0.00-0.02); Immature Granulocytes % (auto) 0.2 %; Lymphocytes # (auto) 1.21 K/uL (1.2-3.4); Lymphocytes % (auto) 24.8 %; Mean Corpuscular Hemoglobin 32.5 pg (25-34); Mean Corpuscular Volume 95.6 fL (80-100); Mean Platelet Volume 9.7 fL (7.4-10.4); Monocytes # (auto) 0.82 K/uL (0.11-0.59); Monocytes % (auto) 16.8 %; Neutrophils # (auto) 2.73 K/uL (1.4-6.5); Platelet Count 137 K/uL (130-400); RDW Coefficient of Variation 13.5 % (11.5-14.5); RDW Standard Deviation 46.5 fL (36.4-46.3); Red Blood Count 3.88 M/uL (4.7-6.1); White Blood Count 4.88 K/uL (4.8-10.8)
[2019-07-14 08:50] LABS: Vitamin B12 1875 pg/ml (211-911)
[2019-07-14 08:51] LABS: Folate (Folic Acid) > 24.00 ng/ml (>5.38)
[2019-07-14 08:53] LABS: Albumin Level 3.5 gm/dl (3.4-5.0); BUN Creatinine Ratio 15.4 (10-20); Calcium 8.6 mg/dl (8.5-10.1); Creatinine Clr Calc Pharmacy 51.4 ml/min; Est GFR (African American) 55.3; Est GFR (Non-African American) 47.7
[2019-07-14 08:58] LABS: Iron 104 mcg/dl (35-175); Total Iron Binding Capacity 303 mcg/dl (250-450); Troponin I < 0.015 ng/ml (0-0.045)
[2019-07-14] MEDS: INSULIN ASPART 100 UNITS/ML 3 ML PEN SC SCH ×4 (08:58→20:52)
[2019-07-14] MEDS: ENALAPRIL MALEATE 10 MG TAB PO SCH (08:59)
[2019-07-14] MEDS: FAMOTIDINE 20 MG TAB PO SCH (08:59)
[2019-07-14] MEDS: FOLIC ACID 400 MCG TAB PO SCH (08:59)
[2019-07-14] MEDS: ROSUVASTATIN CALCIUM 5 MG TAB PO SCH (09:00)
[2019-07-14] MEDS: CLOPIDOGREL BISULFATE 75 MG TAB PO SCH (09:00)
[2019-07-14] MEDS: ASPIRIN 81 MG ECTAB PO SCH (09:00)
[2019-07-14] MEDS: CHOLECALCIFEROL 1,000 UNITS TAB PO SCH (09:00)
[2019-07-14] MEDS: CYANOCOBALAMIN 500 MCG TABLET (VITAMIN B-12) PO SCH (09:00)
[2019-07-14] MEDS: HEPARIN SOD 5,000 UNIT/0.5 ML VIAL SQ SCH ×2 (09:00→20:55)
[2019-07-14 09:03] LABS: Albumin Globulin Ratio 1.3 (0.9-2); Bilirubin,Total 0.5 mg/dl (0.2-1); Globulin 2.7 gm/dl (2.5-4.0); Thyroid Stimulating Hormone 3.28 uIu/ml (0.300-4.500); Total Protein 6.2 gm/dl (6.4-8.2)
[2019-07-14 10:07] LABS: Estimated Average Glucose 154 mg/dl
--- NOTE | 2019-07-14 10:46 | Pharmacy Report ---
Pharmacy Glycemic Short Note 2 - Date of Service July 14, 2019 - Glycemic Short BSG Results (Last 24 hours): 07/13/19 07/13/19 07/14/19 15:56 21:13 07:18 Glucose 146 H POC Glucose 103 H 108 H 07/14/19 07:58 Glucose 100 H POC Glucose OUTPATIENT ANTIDIABETIC REGIMEN: * Glimepiride 4mg PO BID * Insulin Lispro 1-2 units Q PM * A1c = 7% 07/14/19 ASSESSMENT: * Well controlled type 2 diabetic admitted to observation for syncope * Fasting BSG 108 this AM with no basal insulin on board. Given A1c results, will withhold basal at this time and reassess need daily. * Current Novolog doses are reasonable, therefore will only make small adjustments today. Doses will be based upon weight and "moderate" stress level PLAN FOR INPATIENT GLYCEMIC CONTROL: * Hold outpatient oral diabetes medications (glimepiride) * Basal insulin * None at this time * Bolus insulin * NovoLog per scale ACHS or Q6hrs while NPO * Goal Range: Low 110 mg/dL - High 140 mg/dL * Correction Factor: 25 mg/dL/unit * Nutritional / Prandial insulin per carb ratio of 1 unit per 8 grams CHO consumed PLAN FOR DISCHARGE: * resume outpt regimen given A1c results
--- NOTE | 2019-07-14 14:54 | Cardiology Consultation ---
Date of Consultation July 14, 2019 Assessment & Plan (1) Syncope: He describes a sudden episode of syncope which although not terribly long was long enough for his computer to shut down but he recovered fairly quickly although he may have had a brief episode where he was little bit disoriented since it took him a while to get his computer running again. He has never had any other episode that he is aware of. He does have long-standing first-degree AV block and either borderline left bundle branch block or left anterior fascicular block with an IVCD. 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 I think we should look for that, I would keep on the monitor here in the hospital and if he goes home I will can arrange a 30-day event monitor. If that is negative we may want to consider an implantable loop recorder. A tachycardia is possible but he does not seem to have any reason to suspect he has that but that would be picked up on the monitoring as well. History of Present Illness Reason for Consultation: Syncope Attending Physician: Mine Reed MD Allergies Allergy/AdvReac Type Severity Reaction Status Date / Time Penicillins Allergy Intermediate RASH Verified 07/13/19 17:22 Sulfa (Sulfonamide Allergy Intermediate RASH Verified 07/13/19 17:22 Antibiotics) gluten Allergy Mild GI SYMPTOMS Verified 07/13/19 17:22 lactose Allergy Mild GI SYMPTOMS Verified 07/13/19 17:22 tramadol Allergy Mild HALLUCINATI Verified 07/13/19 17:22 ONS oxycodone Allergy Unknown Verified 07/13/19 17:22 simvastatin Allergy Unknown Verified 07/13/19 17:22 Vbfsbvh-Vnc-Bmr Reductase AdvReac Intermediate MUSCLE Verified 07/13/19 17:22 Inhibitor WEAKNESS, BRAIN FOG Home Medications Home Medications Medication Instructions Recorded Confirmed Type Humalog U-100 Insulin 1 - 2 unit SUBCUT QPM 07/13/19 07/13/19 History albuterol sulfate [Ventolin HFA] 2 puff INHALATION Q6 PRN 07/13/19 07/13/19 History aspirin [Aspir-81] 81 mg PO DAILY 07/13/19 07/13/19 History cholecalciferol (vitamin D3) 4,000 unit PO DAILY 07/13/19 07/13/19 History [Vitamin D3] clopidogrel [Plavix] 75 mg PO DAILY 07/13/19 07/13/19 History cyanocobalamin (vitamin B-12) 0 mcg PO DAILY 07/13/19 07/13/19 History [Vitamin B-12] finasteride [Proscar] 5 mg PO HS 07/13/19 07/13/19 History folic acid 800 mcg PO DAILY 07/13/19 07/13/19 History glimepiride [Amaryl] 4 mg PO BID 07/13/19 07/13/19 History levothyroxine [Synthroid] 50 mcg PO DAILY 07/13/19 07/13/19 History pantoprazole [Protonix] 40 mg PO DAILY 07/13/19 07/13/19 History quinapril [Accupril] 10 mg PO DAILY 07/13/19 07/13/19 History rosuvastatin [Crestor] 5 mg PO DAILY 07/13/19 07/13/19 History tamsulosin [Flomax] 0.4 mg PO HS 07/13/19 07/13/19 History Patient History Medical History History of stroke with residual deficit Acid reflux TIA (transient ischemic attack) Diabetes Hypercholesteremia Surgical History H/O colonoscopy H/O hernia repair History of knee replacement History of knee surgery History of tonsillectomy and adenoidectomy Hx of cholecystectomy Family History Brother Prostate cancer Colon cancer Grandfather Rectal cancer Unknown Diabetes Heart disease Hypertension Cancer Social History Preferred Language: Swedish Communication Ability: Effective Channel Layer Required: No Beliefs That Will Affect Care: None Current Living Situation: Spouse Feels Safe at Home: Yes Smoking Status: Former smoker Hx Alcohol Use: No Physical Exam Physical Exam: Constitutional: Alert, cooperative and in no distress. HEENT: Unremarkable Neck: No jugular venous distention, carotid pulses are normal and equal bilaterally without bruits. Pulmonary: Clear to auscultation bilaterally. Cardiac: Regular rhythm with no murmur, gallop or rub. Abdomen: Soft, nontender with normal bowel sounds. Extremities: No edema. Distal pulses intact. Neurologic: No focal findings. Gait is steady. Skin: No rash, ecchymoses or petechiae. Results & Data Vital Signs (Past 12 Hours) Vital Signs Temp Pulse Pulse Resp BP Pulse Ox 07/14/19 11:34 36.5 C 63 16 173/80 H 98 07/14/19 07:38 36.5 C 70 16 148/81 H 97 07/14/19 07:35 64 07/14/19 04:00 36.6 C 70 18 129/57 L 98 Diagnostic Findings His electrocardiogram on admission demonstrates sinus rhythm at 67 bpm with a left bundle branch block pattern and first-degree AV block with a [place] interval of 274 ms. Other electrocardiograms done July 14, 2019 showed similar findings although the QRS duration might have been a little bit narrower. PG Care Time/CCT Total # of Minutes Spent Total Time Spent with Patient: Total time spent is greater than 50% in coordination of care (as documented) at patient's floor/unit and/or counseling patient: (1) Syncope Syncope type: unspecified Qualified Code(s): R55 - Syncope and collapse
--- NOTE | 2019-07-14 19:29 | Hospitalist Progress Note ---
Date of Service July 14, 2019 Assessment & Plan (1) Syncope: Continue PCU Vital signs every 4 hours Since patient had a episode of week ago and does not have any neurological deficit at this time, we will not do neurochecks. MRI head and neck moderate to rather significant stenosis of the origin right internal carotid artery. This is grossly estimates 60 to 80%. Probable high- grade grade stenosis distal left vertebral artery. Consulted Dr. Welsh vascular CBC CMP BMP A1c -7 Lipid panel -normal Iron studies for anemia-anemia of chronic disease. Cardiology consult-appreciate recommendations DVT prophylaxis with heparin 5000 every 12 hours Full code (2) Stage III chronic kidney disease: Appears that patient is at his baseline 1.70 creatinine Avoid nephrotoxic agents (3) Neuroendocrine tumor: Stable patient is checked at [place]. No issues at this time no progression of tumors. (4) Hypothyroidism: Continue home dose levothyroxine TSH within normal limits (5) Hypertension: Continue quinapril 10 mg p.o. daily (6) Diabetic peripheral neuropathy: Accu-Cheks before meals and at bedtime Sliding scale insulin managed per pharmacy (7) Acid reflux: Hold pantoprazole due to possible nephrotoxicity patient switched to Famotidine 20 managed milligrams p.o. per renal clearance (8) Enlarged prostate with lower urinary tract symptoms (LUTS): Continue finasteride and tamsulosin Subjective She is seen and examined at bedside. No new episodes of syncope. Afebrile. Hemodynamically stable. Seen by Dr. Leung and recommended for close follow- up. Syncope is most likely caused by the first-degree AV block which is long- standing and incomplete left bundle branch block or left anterior fascicular block with IVCD. He recommends to continue telemetry and will arrange event monitor for 30 days. He will follow-up in the patient after the discharge. MRI/MRA brain and neck significant for moderate to rather significant stenosis of the origin of the right internal carotid artery with cross estimation 60 to 80%. Probable high-grade stenosis of the distal left vertebral artery. Patient denies fever chills chest pain shortness of breath abdominal pain frequency urgency hematemesis dysuria. Review of Systems Review of Systems: All systems reviewed & are unremarkable except as noted in HPI & below Physical Exam Constitutional: WD/WN, vitals as above Eyes: PERRL, conjunctivae normal, anicteric sclerae ENMT: external ear and nose normal, oropharynx normal Neck: trachea midline, no thyromegaly Respiratory: normal respiratory effort, lungs clear to auscultation Cardiovascular: RRR, no murmur, no edema Chest (Breasts): normal inspection/palpation of breasts Gastrointestinal (Abdomen): normal bowel sounds, soft, nontender, no hepatosplenomegaly Musculoskeletal: no cyanosis or clubbing, extremities motor strength 5/5 Skin: no rashes, warm and dry Neurologic: patellar DTR's 2+ bilat, sensation intact Psychiatric: A+Ox3, euthymic affect Genitourinary: no testicular masses, no penis abnormality Lymphatic: no cervical or axillary lymphadenopathy Results & Data Vital Signs (Past 12 Hours) Vital Signs Temp Pulse Pulse Resp BP Pulse Ox 07/14/19 15:38 36.9 C 60 19 142/72 H 95 07/14/19 11:34 36.5 C 63 16 173/80 H 98 07/14/19 07:38 36.5 C 70 16 148/81 H 97 07/14/19 07:35 64 PG Care Time/CCT Total # of Minutes Spent Total Time Spent with Patient: Total time spent is greater than 50% in coordination of care (as documented) at patient's floor/unit and/or counseling patient:
[2019-07-14] MEDS: TAMSULOSIN HCL 0.4 MG CAP PO SCH (20:56)
[2019-07-14] MEDS: FINASTERIDE 5 MG TAB PO SCH (20:56)
[2019-07-15] MEDS: LEVOTHYROXINE SODIUM 50 MCG TABLET PO SCH (06:05)
[2019-07-15 06:38] LABS: Basophils # (auto) 0.04 K/uL (0-0.2); Basophils % (auto) 0.7 %; Eosinophils # (auto) 0.07 K/uL (0-0.5); Eosinophils % (auto) 1.2 %; Hematocrit (blood only) 36.8 % (42-52); Hemoglobin 12.8 g/dL (14.0-18.0); Immature Granulocytes # (auto) 0.01 K/uL (0.00-0.02); Immature Granulocytes % (auto) 0.2 %; Lymphocytes # (auto) 1.38 K/uL (1.2-3.4); Mean Corpuscular Hemoglobin 33.2 pg (25-34); Mean Corpuscular Hgb Conc 34.8 g/dL (32-36); Mean Corpuscular Volume 95.6 fL (80-100); Mean Platelet Volume 9.4 fL (7.4-10.4); Monocytes # (auto) 1.25 K/uL (0.11-0.59); Monocytes % (auto) 20.8 %; Neutrophils # (auto) 3.25 K/uL (1.4-6.5); Neutrophils % (auto) 54.1 %; Platelet Count 138 K/uL (130-400); RDW Coefficient of Variation 13.5 % (11.5-14.5); RDW Standard Deviation 46.6 fL (36.4-46.3); Red Blood Count 3.85 M/uL (4.7-6.1)
[2019-07-15 07:05] VITALS: O2SAT 97
[2019-07-15 07:13] LABS: Albumin Level 3.4 gm/dl (3.4-5.0); Calcium 8.8 mg/dl (8.5-10.1); Creatinine Clr Calc Pharmacy 49.8 ml/min; Est GFR (African American) 54.4; Est GFR (Non-African American) 46.9; Potassium 4.1 mmol/L (3.5-5.1)
[2019-07-15 07:15] LABS: Albumin Globulin Ratio 1.2 (0.9-2); Bilirubin,Total 0.7 mg/dl (0.2-1); Globulin 2.8 gm/dl (2.5-4.0); Total Protein 6.2 gm/dl (6.4-8.2)
[2019-07-15] MEDS: FAMOTIDINE 20 MG TAB PO SCH (08:34)
[2019-07-15] MEDS: CYANOCOBALAMIN 500 MCG TABLET (VITAMIN B-12) PO SCH (08:34)
[2019-07-15] MEDS: CLOPIDOGREL BISULFATE 75 MG TAB PO SCH (08:34)
[2019-07-15] MEDS: CHOLECALCIFEROL 1,000 UNITS TAB PO SCH (08:34)
[2019-07-15] MEDS: ENALAPRIL MALEATE 10 MG TAB PO SCH (08:35)
[2019-07-15] MEDS: ASPIRIN 81 MG ECTAB PO SCH (08:36)
[2019-07-15] MEDS: FOLIC ACID 400 MCG TAB PO SCH (08:36)
[2019-07-15] MEDS: ROSUVASTATIN CALCIUM 5 MG TAB PO SCH (08:36)
[2019-07-15] MEDS: INSULIN ASPART 100 UNITS/ML 3 ML PEN SC SCH ×2 (08:38→12:47)
[2019-07-15] MEDS: HEPARIN SOD 5,000 UNIT/0.5 ML VIAL SQ SCH (08:44)
[2019-07-15 11:50] VITALS: PULSE 51; TEMP 97.9
--- NOTE | 2019-07-15 13:15 | Consultation ---
Date of Consultation July 15, 2019 Assessment & Plan (1) Carotid artery stenosis: Pt with known carotid stenosis of R ICA, approx 60%, unchanged according to pt/family. Also noted L vertebral art stenosis. Unlikely to contribute to pt's current sx. Cardiology recs noted. no indications for vascular surgical intervention at this time. Will see pt in office in 6 months with carotid US. Please call if needed. Patient was seen, examined, and chart reviewed. Agree with exam and treatment plan of the Vascular PA. Present on Admission?: Yes History of Present Illness Reason for Consultation: R ICA stenosis and L vert stenosis, syncope Attending Physician: Misha Scott History of Present Illness 79 yo m with hx of CKD, neuroendocrine tumor, HTN, hypothyroidism, DMII, hypercholesterolemia, TIA in 2001, and carotid stenosis, admitted after a syncopal event last week, seen in consultation today for DEANDRA and vert art stenosis. Pt states he was at his computer and "passed out" for a few minutes. Has never had similar event. No prior sx. Pt denies CHAPPELL, fever, recent illness, chest pain, palpitations, abd pain, N/V, rest pain, claudication, other complaints. According to pt and , he has known about carotid stenosis of 60% for many years. Neck MRA indicates 90% stenosis of L vert and 60% stenosis R carotid. Allergies Allergy/AdvReac Type Severity Reaction Status Date / Time Penicillins Allergy Intermediate RASH Verified 07/13/19 17:22 Sulfa (Sulfonamide Allergy Intermediate RASH Verified 07/13/19 17:22 Antibiotics) gluten Allergy Mild GI SYMPTOMS Verified 07/13/19 17:22 lactose Allergy Mild GI SYMPTOMS Verified 07/13/19 17:22 tramadol Allergy Mild HALLUCINATI Verified 07/13/19 17:22 ONS oxycodone Allergy Unknown Verified 07/13/19 17:22 simvastatin Allergy Unknown Verified 07/13/19 17:22 Eemcxsc-Zia-Mco Reductase AdvReac Intermediate MUSCLE Verified 07/13/19 17:22 Inhibitor WEAKNESS, BRAIN FOG Home Medications Home Medications Medication Instructions Recorded Confirmed Type Humalog U-100 Insulin 1 - 2 unit SUBCUT QPM 07/13/19 07/13/19 History albuterol sulfate [Ventolin HFA] 2 puff INHALATION Q6 PRN 07/13/19 07/13/19 History aspirin [Aspir-81] 81 mg PO DAILY 07/13/19 07/13/19 History cholecalciferol (vitamin D3) 4,000 unit PO DAILY 07/13/19 07/13/19 History [Vitamin D3] clopidogrel [Plavix] 75 mg PO DAILY 07/13/19 07/13/19 History cyanocobalamin (vitamin B-12) 0 mcg PO DAILY 07/13/19 07/13/19 History [Vitamin B-12] finasteride [Proscar] 5 mg PO HS 07/13/19 07/13/19 History folic acid 800 mcg PO DAILY 07/13/19 07/13/19 History glimepiride [Amaryl] 4 mg PO BID 07/13/19 07/13/19 History levothyroxine [Synthroid] 50 mcg PO DAILY 07/13/19 07/13/19 History pantoprazole [Protonix] 40 mg PO DAILY 07/13/19 07/13/19 History quinapril [Accupril] 10 mg PO DAILY 07/13/19 07/13/19 History rosuvastatin [Crestor] 5 mg PO DAILY 07/13/19 07/13/19 History tamsulosin [Flomax] 0.4 mg PO HS 07/13/19 07/13/19 History Patient History Medical History History of stroke with residual deficit Acid reflux TIA (transient ischemic attack) Diabetes Hypercholesteremia Surgical History H/O colonoscopy H/O hernia repair History of knee replacement History of knee surgery History of tonsillectomy and adenoidectomy Hx of cholecystectomy Family History Brother Prostate cancer Colon cancer Grandfather Rectal cancer Unknown Diabetes Heart disease Hypertension Cancer Social History Preferred Language: Maori Communication Ability: Effective 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[place] 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: No Beliefs That Will Affect Care: None Current Living Situation: Spouse Feels Safe at Home: Yes Smoking Status: Former smoker Hx Alcohol Use: No Review of Systems Review of Systems: All systems reviewed & are unremarkable except as noted in HPI & below Physical Exam Constitutional: WD/WN, vitals as above well developed, well nourished, well groomed, + disheveled, cooperative and comfortable; + not healthy appearing, not in distress and not combative Eyes: PERRL, conjunctivae normal, anicteric sclerae EOM intact bilaterally ENMT: external ear and nose normal, oropharynx normal Ears: no hearing impairment Nose: no nasal discharge Neck: trachea midline, no thyromegaly no neck crepitus and neck nontender Respiratory: normal respiratory effort, lungs clear to auscultation able to speak in complete sentences; does not use accessory muscles and no cough Auscultation: + diminished lung sounds; no rhonchi Cardiovascular: Rate/Rhythm: regular rhythm and + bradycardic Heart Sounds: no gallop and no murmur Vessels: + carotid bruit (R), femoral pulses present, posterior tibial pulses present, dorsalis pedis pulses present, brachial pulses present and radial pulses present; no femoral bruit and + abnormal peripheral pulses Extremities: normal capillary refill; no edema Gastrointestinal (Abdomen): normal bowel sounds, soft, nontender, no hepatosplenomegaly Inspection/Auscultation: abdomen normal to inspection and normal bowel sounds; abdomen not distended Percussion/Palpation: abdomen soft; abdomen nontender, no guarding, abdomen not rigid and no abdominal mass Musculoskeletal: no cyanosis or clubbing, extremities motor strength 5/5 Head/Neck/Chest: normocephalic, head atraumatic and neck supple Extremities: extremities normal to inspection and strength 5/5 throughout; full ROM of extremities Skin: normal turgor; no rashes, no ulcers, no induration, no wound, no erythema, no eschar and no mottling Trauma: no hematoma and no puncture Neurologic: moves all extremities and awake; no focal motor deficits Speech / Cognition: no expressive aphasia and no receptive aphasia Motor/Sensory: no tremor and no sensory deficit Cranial Nerves: EOM intact bilaterally and normal facial strength Psychiatric: Orientation: alert, oriented x 3 and cooperative Apperance: appropriately dressed, appropriately groomed and appeared stated age Affect: euthymic affect Thought Process: goal directed thought process, linear/logical thought process and clear/coherent thought process Cognition: recent memory grossly intact, remote memory grossly intact, attention grossly intact and language grossly intact Estimated Intelligence: average estimated intelligence Results & Data Vital Signs (Past 12 Hours) Vital Signs Temp Pulse Pulse Resp BP BP Pulse Ox 07/15/19 11:49 36.6 C 51 L 18 139/81 97 07/15/19 07:23 57 L 07/15/19 07:04 36.4 C L 48 L 18 118/63 97 07/15/19 03:00 36.4 C L 55 L 20 108/68 98
[2019-07-15 13:33] VITALS: BP 108/68
--- NOTE | 2019-07-26 20:47 | Discharge Summary ---
Date of Service July 15, 2019 Admission HPI Per Admitting Provider Patient is a 79 years old male with past medical history of hypertension, diabetes mellitus type 2, transient ischemic attack, mild carotid stenosis, GERD, hemorrhagic cyst on the kidneys, anemia, CKD stage III, osteoarthritis, hypercholesterolemia, BPPV, presents to the emergency room with his after he went to his PCP office and reported that he passed out approximately week ago while he was sitting at the computer in the basement. Patient said that he does not have any memory of the event but that he blacked out and immediately reports that that event. Patient felt very confused. Patient said that he never had similar episode before. Patient denies falling hitting his head or any part of his body when this occurred. Patient said he took aspirin 325 when that occurred. Patient is in his usual activity ambulates on his own good p.o. intake. Patient denies fever chills headache chest pain shortness of breath hemoptysis hematuria nausea vomiting dysuria abdominal pain frequency urgency melena. Labs were reviewed sodium 141, potassium 4, chloride 108, anion gap 7, BUN 25, creatinine 1.75, GFR 41.5, hemoglobin A1c 7.2, lipase 79 TSH 2.38., Hemoglobin 13.6, hematocrit 38.7, white blood cell 6.13, platelets 164. CT head no acute intracranial abnormality. Chest x-ray is negative chest the cardiomediastinal silhouette is normal. EKG, normal sinus rhythm with first- degree AV block, left bundle branch block no ST segment elevation or depression. Decision was made to admit patient for observation on telemetry. Principal Diagnosis syncope Discharge Exam Constitutional: WD/WN, vitals as above Eyes: PERRL, conjunctivae normal, anicteric sclerae ENMT: external ear and nose normal, oropharynx normal Neck: trachea midline, no thyromegaly Respiratory: normal respiratory effort, lungs clear to auscultation Cardiovascular: RRR, no murmur, no edema Gastrointestinal (Abdomen): normal bowel sounds, soft, nontender, no hepatosplenomegaly Musculoskeletal: no cyanosis or clubbing, extremities motor strength 5/5 Skin: no rashes, warm and dry Neurologic: patellar DTR's 2+ bilat, sensation intact Psychiatric: A+Ox3, euthymic affect Lymphatic: no cervical or axillary lymphadenopathy Discharge Data Allergies Allergy/AdvReac Type Severity Reaction Status Date / Time Penicillins Allergy Intermediate RASH Verified 07/17/19 15:53 Sulfa (Sulfonamide Allergy Intermediate RASH Verified 07/17/19 15:53 Antibiotics) gluten Allergy Mild GI SYMPTOMS Verified 07/17/19 15:53 lactose Allergy Mild GI SYMPTOMS Verified 07/17/19 15:53 tramadol Allergy Mild HALLUCINATI Verified 07/17/19 15:53 ONS oxycodone Allergy Unknown Verified 07/17/19 15:53 simvastatin Allergy Unknown Verified 07/17/19 15:53 Dodbkym-Who-Cvx Reductase AdvReac Intermediate MUSCLE Verified 07/17/19 15:53 Inhibitor WEAKNESS, BRAIN FOG Consultations 07/13/19 17:15 ED Decision to Admit Stat 07/13/19 19:36 Consult Cardiology Routine 07/14/19 14:10 Consult Vascular Surgery Routine Ordered Studies 07/13/19 15:35 CT head/brain wo con Stat 07/13/19 19:36 MR angio neck wo con Stat MR brain wo con Stat Hospital Course (1) Syncope: Continue PCU Vital signs every 4 hours Since patient had a episode of week ago and does not have any neurological deficit at this time, we will not do neurochecks. MRI head and neck moderate to rather significant stenosis of the origin right internal carotid artery. This is grossly estimates 60 to 80%. Probable high- grade grade stenosis distal left vertebral artery. Consulted Dr. Welsh vascular CBC CMP BMP A1c -7 Lipid panel -normal Iron studies for anemia-anemia of chronic disease. Cardiology consult-appreciate recommendations He describes a sudden episode of syncope which although not terribly long was long enough for his computer to shut down but he recovered fairly quickly although he may have had a brief episode where he was little bit disoriented since it took him a while to get his computer running again. He has never had any other episode that he is aware of. He does have long-standing first-degree AV block and either borderline left bundle branch block or left anterior fascicular block with an IVCD. 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 I think we should look for that, I would keep on the monitor here in the hospital and if he goes home I will can arrange a 30-day event monitor. If that is negative we may want to consider an implantable loop recorder. A tachycardia is possible but he does not seem to have any reason to suspect he has that but that would be picked up on the monitoring as well. Vacular surgery does not recommend any procedure at this time. will discharge patient. DVT prophylaxis with heparin 5000 every 12 hours Full code (2) Stage III chronic kidney disease: Appears that patient is at his baseline 1.70 creatinine Avoid nephrotoxic agents (3) Neuroendocrine tumor: Stable patient is checked at [place]. No issues at this time no progression of tumors. (4) Hypothyroidism: Continue home dose levothyroxine TSH within normal limits (5) Hypertension: Continue quinapril 10 mg p.o. daily (6) Diabetic peripheral neuropathy: Accu-Cheks before meals and at bedtime Sliding scale insulin managed per pharmacy (7) Acid reflux: Hold pantoprazole due to possible nephrotoxicity patient switched to Famotidine 20 managed milligrams p.o. per renal clearance (8) Enlarged prostate with lower urinary tract symptoms (LUTS): Continue finasteride and tamsulosin Total Time Total Time Spent Total Time Spent (In Minutes): 32 Discharge Plan Discharge Items Patient Disposition: Home - Self-Care Reason For Visit: SYNCOPE Discharge Diagnosis: Syncope Discharge Goals: Decrease discomfort Activity: Resume your previous activity Non-emergency contact: Primary Care Provider Call non-emergency contact if: you have any medication questions Follow-up/Referrals: Dick Adams MD [Primary Care Provider] - 07/22/19 11:00 am (Please, follow up at Dr. Adams's office with his associate, aKndace GONZALEZ, on SaturdayJuly 22 at 11:00 am. *If you need to change this appointment, call the office at [phone].) Diet: Regular Addtl Provider Instructions: Cardio will set up a 30 day heart monitor for you in the near future. This will likely shed some light on the cause of you passing out. For the mean time, you are not able to operate any heavy machinery, until we figure out the cause of this problem and fix it. Prescriptions: Continued quinapril [Accupril] 10 mg tablet 10 mg PO DAILY RF: 0 pantoprazole [Protonix] 40 mg tablet,delayed release (DR/EC) 40 mg PO DAILY RF: 0 clopidogrel [Plavix] 75 mg tablet 75 mg PO DAILY RF: 0 aspirin [Aspir-81] 81 mg Tablet,Delayed Release (Dr/Ec) 81 mg PO DAILY RF: 0 tamsulosin [Flomax] 0.4 mg capsule 0.4 mg PO HS RF: 0 glimepiride [Amaryl] 4 mg tablet 4 mg PO BID RF: 0 albuterol sulfate [Ventolin HFA] 90 mcg/actuation HFA aerosol inhaler 2 puff inhalation Q6 PRN (Reason: Shortness Of Breath Or Wheezing) RF: 0 finasteride [Proscar] 5 mg tablet 5 mg PO HS RF: 0 cholecalciferol (vitamin D3) [Vitamin D3] 2,000 unit Capsule 4,000 unit PO DAILY RF: 0 levothyroxine [Synthroid] 50 mcg tablet 50 mcg PO DAILY RF: 0 folic acid 800 mcg Tablet 800 mcg PO DAILY RF: 0 Humalog U-100 Insulin 100 unit/mL Cartridge 1 - 2 unit SUBCUT QPM RF: 0 rosuvastatin [Crestor] 5 mg tablet 5 mg PO DAILY RF: 0 Discontinued doxycycline hyclate 50 mg capsule 50 mg PO DAILY RF: 0 No Action azelastine 137 mcg (0.1 %) aerosol,spray 2 sprays intranasal BID PRN (Reason: allergy symptoms) Qty: 1 RF: 0 FreeStyle Lite Strips strip .ROUTE .MEDSUPPLY Qty: 10 RF: 0 lancets [FreeStyle Lancets] 28 gauge misc .ROUTE .MEDSUPPLY Qty: 25 RF: 0 cyanocobalamin (vitamin B-12) [Vitamin B-12] 1,000 mcg tablet 1,000 mcg PO DAILY RF: 0 Stand-Alone Forms: [facility] Discharge Orders: Discharge Order (Routine); Ordered 07/15/19 Ordered By: Misha Scott Admission Data Admit Date/Time: 07/13/19 18:21 Attending Provider: Misha Scott Admit Provider: Mine Reed Primary Care Provider: Dick Adams Other Providers: Carey Coffman ; Ramin Virgen ; Felix Welsh Service: Telemetry Medical Other Interventions: Discharge Summary Assessment (RN) Last Done: 07/15/19 13:29 DC Date/Time DO NOT enter until pt leaves facility: 07/15/19 14:50
== END 2019-07-15 14:50 | disposition home or self-care (01) ==
LOC: 2N 14:56 → ED 14:56 → SUATTDRO 18:21 → 2N 18:51

== ENCOUNTER 2021-08-09 09:57 | Inpatient (IN) ==
--- NOTE | 2021-08-09 10:47 | CT Scan Report ---
CT head/brain wo con CLINICAL HISTORY: 81 years-old Male with fall. Acute head trauma status post fall TECHNIQUE: Multiple axial CT images of the head were obtained without contrast. A dose lowering tech nique was utilized adhering to the principles of ALARA. CT DOSE: 729.78 mGycm COMPARISON: Head CT 12/23/2020 FINDINGS: No acute intracranial hemorrhage, midline shift, intracranial mass, hydrocephalus, territorial ischem ia or abnormal extra-axial collection. Age-related involutional changes. Cavum septum pellucidum and vergae. Cerebral vascular calcifications. The calvarium is intact. The paranasal sinuses, mastoid air cells, and middle ear cavities are clear . IMPRESSION: No acute intracranial abnormality or calvarial fracture. ACT 112: Negative or not required by law. The above report was generated using voice recognition software. It may contain grammatical, syntax o r spelling errors. Electronically signed by: Derrick Lang M.D. 08/09/2021 10:46 AM
[2021-08-09 11:12] LABS: Basophils # (auto) 0.01 K/uL (0-0.2); Basophils % (auto) 0.2 %; Eosinophils # (auto) 0.06 K/uL (0-0.5); Eosinophils % (auto) 1.1 %; Hematocrit (blood only) 39.4 % (42-52); Hemoglobin 13.2 g/dL (14.0-18.0); Immature Granulocytes # (auto) 0.02 K/uL (0.00-0.02); Immature Granulocytes % (auto) 0.4 %; Lymphocytes # (auto) 1.13 K/uL (1.2-3.4); Mean Corpuscular Hemoglobin 31.8 pg (25-34); Mean Corpuscular Hgb Conc 33.5 g/dL (32-36); Mean Corpuscular Volume 94.9 fL (80-100); Mean Platelet Volume 10.1 fL (7.4-10.4); Monocytes # (auto) 1.49 K/uL (0.11-0.59); Monocytes % (auto) 27.7 %; Neutrophils # (auto) 2.67 K/uL (1.4-6.5); Neutrophils % (auto) 49.6 %; Platelet Count 153 K/uL (130-400); RDW Coefficient of Variation 14.3 % (11.5-14.5); RDW Standard Deviation 49.6 fL (36.4-46.3); Red Blood Count 4.15 M/uL (4.7-6.1); White Blood Count 5.38 K/uL (4.8-10.8)
[2021-08-09 11:30] LABS: Alanine Aminotransferase 20 U/L (12-78); Albumin Level 3.6 gm/dl (3.4-5.0); Aspartate Aminotransferase 18 U/L (15-37); BUN Creatinine Ratio 16.1 (10-20); Blood Urea Nitrogen 26 mg/dl (7-18); Calcium 8.5 mg/dl (8.5-10.1); Carbon Dioxide 24 mmol/L (21-32); Chloride 108 mmol/L (98-107); Creatinine Clr Calc Pharmacy 43.2 ml/min; Est GFR (African American) 45.8 ml/min; Est GFR (Non-African American) 39.5 ml/min; Glucose 253 mg/dl (70-99); Potassium 4.1 mmol/L (3.5-5.1); Sodium 139 mmol/L (136-145)
[2021-08-09 11:40] LABS: Albumin Globulin Ratio 1.2 (0.9-2); Alkaline Phosphatase 85 U/L (45-117); Bilirubin,Total 0.3 mg/dl (0.2-1); Total Protein 6.6 gm/dl (6.4-8.2); Troponin I < 0.015 ng/ml (0-0.045)
--- NOTE | 2021-08-09 12:01 | Emergency Department Note ---
Impression & Plan Syncope, Dizziness, Arrhythmia, Acute head trauma ED Provider Note NAME: LIZZETH RAPP AGE: 81 SEX: M : 1940 ARRIVES VIA: Walk-In INFORMANT: [Patient] ED PROVIDER(S): [Gordy Grimaldo MD] CHIEF COMPLAINT: Fall HISTORY OF PRESENT ILLNESS: The patient is a 81-year-old male with a history of lightheadedness and falls/syncope. He currently has a loop recorder in place. The patient states that he has been in baseline health. No cough, cold, congestion or fever. The patient states that he got out of bed this morning, as he was walking from his bed to the bathroom, he became dizzy and fell. No true loss of consciousness but he did strike the back of his head and has a hematoma from hitting the carpet. Patient denies neck pain, chest pain or shortness of breath. No other injury from the fall. The patient did have a flu shot a few days ago, he states his arm is a bit sore but he has not had flulike symptoms. The patient recently had some low blood pressure. His BP meds were decreased a bit about a month ago. REVIEW OF SYSTEMS: See HPI for pertinent positives and negatives. A total of ten systems were reviewed and were otherwise negative. PMHx/PSHx: See Below SOCIAL HISTORY: See Below. PHYSICAL EXAM: GENERAL: Patient is in no acute distress. HEENT: Small 1 to 2 cm left posterior scalp hematoma. No laceration requiring repair. Mucous membranes moist. NECK: No stridor, no adenopathy, nontender posterior C-spine, trachea is midline. LUNGS: Clear to auscultation bilaterally, no wheeze, no rhonchi, breath sounds equal. HEART: Slightly irregular rhythm, normal rate, no murmurs. ABDOMEN: Soft, nontender, bowel sounds positive, no hernias, no peritonitis. EXTREMITIES: No cyanosis, mild bilateral pedal edema, full range of motion of all the joints without pain or difficulty, no signs for acute trauma. NEUROLOGIC: Oriented x 3, no acute motor or sensory deficits, no focal weakness. SKIN: No rash, no jaundice, no diaphoresis. DIFFERENTIAL DIAGNOSIS: Infection, dehydration, metabolic abnormality, hypo/hyperglycemia, dysrhythmia, A. fib, a flutter, V. tach, electrolyte disturbance, anemia, hypoxia, cardiac sources, intracerebral event, toxicologic issues, stroke, TIA, as well as other pathologies. EMERGENCY DEPARTMENT COURSE/PROCEDURES: ECG: Indication was dizziness. The ECG shows a possible second-degree AV block, I cannot tell if it is Mobitz 1 or Mobitz 2. There may be a long first- degree AV block in the latter portion of the ECG. The rate is 85. There is no ST elevation, no PVCs. QTC is 464. Compared to an ECG from 15 July 2019, rhy thm changes have occurred. Continuous Cardiac Monitoring: An order was placed for continuous cardiac monitoring. The monitor shows a rate of 88 with sinus rhythm and a first-degree AV block. MEDICAL DECISION MAKING: There is no leukocytosis. A very mild anemia was noted. There was a normal platelet count. Some renal insufficiency was seen however, this is baseline. There was no significant electrolyte abnormality in need of emergent correction. No liver enzyme elevation. The patient appeared to be in a euthyroid state. ECG shows what appears to be a second-degree AV block, possibly Mobitz 1, possibly Mobitz 2. No acute ischemic change. Cardiac enzyme testing x1 was not consistent with acute cardiac injury. Urinalysis did not show infection. Lyme disease testing was negative. Covid testing was negative. Brain CT showed no acute bleed or mass-effect. The patient was placed on the vehicle monitor technician. He appeared to have a sinus rhy thm with a first-degree AV block on the monitor. He received IV saline for hydration. The patient has been resting comfortably. I did review his ECG and presentation with cardiology. A hospital stay, monitoring, further work-up was felt warranted. Certainly, dysrhythmia as a cause for this syncopal or near syncopal event is a concern. I spoke with the patient, I talked with case management. The on-call hospitalist has been consulted. Past Med/Surg History Medical History Benign colonic polyp Carotid artery stenosis Chronic obstructive pulmonary disease no inhalers currently Diabetes NIDDM History of prostate cancer treated with radiation. no surgery. Hypercholesteremia Hypertension denies "takes lisinopril to protect kidneys" Hypothyroidism Spinal stenosis of lumbar region Stage III chronic kidney disease Syncope ~2-3 years ago -- has a loop recorder in place TIA (transient ischemic attack) (~2001) Surgical History H/O colonoscopy H/O hernia repair as a toddler History of knee replacement right TKA History of loop recorder in place currently. follows with Dr. Leung. History of tonsillectomy and adenoidectomy Hx of cholecystectomy S/P lumbar laminectomy Family History Brother Prostate cancer Colon cancer Grandfather Rectal cancer Unknown Heart disease Hypertension Cancer Mother Congestive heart failure Diabetes Grandmother (Paternal) Stroke Grandfather (Maternal) Myocardial infarction Denies family history of Ovarian cancer Breast cancer Social History Smoking Status: Never smoker Tobacco Type: Pipe Second Hand Exposure: Yes; Hx Alcohol Use: Yes Alcohol type: hard liquor Hx Substance Use: No Preferred Language: Tunisian Communication Ability: Effective Visual Impairment: No Limitations Hearing Ability: Use of Hearing Aid Vibrator Operator Required: No Beliefs That Will Affect Care: None marital status: Current Living Situation: Spouse current occupational status: retired Feels Safe at Home: Yes Childhood Exposure to Second-Hand Smoke: Yes Dental Care, Regularly: Yes Physical Activity Frequency: Daily Seatbelt Use: always Sunscreen Use: Yes Assistive Devices: None Allergies Allergies Allergy/AdvReac Type Severity Reaction Status Date / Time oxycodone Allergy Severe Hallucinati Verified 08/09/21 11:49 ng Penicillins Allergy Intermediate RASH Verified 08/09/21 11:49 Sulfa (Sulfonamide Allergy Intermediate RASH Verified 08/09/21 11:49 Antibiotics) gluten Allergy Mild GI SYMPTOMS Verified 08/09/21 11:49 lactose Allergy Mild GI SYMPTOMS Verified 08/09/21 11:49 tramadol Allergy Mild HALLUCINATI Verified 08/09/21 11:49 ONS [id number]-[id number] Reductase AdvReac Intermediate MUSCLE Verified 08/09/21 11:49 Inhibitor WEAKNESS, BRAIN FOG Home Meds Home Medications Medication Instructions Recorded Confirmed cholecalciferol (vitamin D3) 50 2,000 unit PO BID 07/13/19 08/09/21 mcg (2,000 unit) capsule (Vitamin D3) aspirin 81 mg tablet,delayed 81 mg PO QAM 10/08/20 08/09/21 release clindamycin HCl 300 mg capsule 600 mg PO DIRECTED PRN 10/08/20 08/09/21 glucosamine sulf dipotassium Cl 2 tab PO BID 10/08/20 08/09/21 750 mg-chondroitin sulf 600 mg tablet (Glucosamine-Chondroitin 3X Triple Strength) levothyroxine 50 mcg tablet 50 mcg PO QAM 10/08/20 08/09/21 (Synthroid) tamsulosin 0.4 mg capsule (Flomax) 0.4 mg PO HS 10/08/20 08/09/21 pravastatin 10 mg tablet 20 mg PO 2XWK 05/03/21 08/09/21 coenzyme Q10 100 mg capsule 100 mg PO DAILY 06/19/21 08/09/21 (CoQ-10) coffee extract 100 mg-phosphatidyl 1 cap PO QAM 06/19/21 08/09/21 serine 100 mg capsule (Neuriva Original) Previous Rx's Medication Instructions Recorded dulaglutide 1.5 mg/0.5 mL 1.5 mg SUBCUT WK #2 ml 05/31/21 subcutaneous pen injector (Trulicity) finasteride 5 mg tablet (Proscar) 5 mg PO HS #90 tab 06/26/21 glimepiride 4 mg tablet 4 mg PO QPM #90 tab 07/19/21 clopidogrel 75 mg tablet (Plavix) 75 mg PO PM #90 tab 08/07/21 quinapril 5 mg tablet 5 mg PO DAILY #30 tab 08/07/21 Results & Data (ED) Vital Signs Vital Signs - 24 hr 08/09/21 10:15 08/09/21 11:55 08/09/21 12:04 Temperature 36.9 C Temperature Source Temporal Artery Scan Pulse Rate - Lying 83 Pulse Rate - Sitting 93 H Pulse Rate - Standing 105 H Pulse Rate 100 H Pulse Rate [Apical] 86 Pulse Rhythm Regular Pulse Strength Normal Respiratory Rate 18 18 Respiratory Effort / Characteristics Non-Labored Spontaneous Respiratory Depth Normal Respiratory Pattern Regular Blood Pressure - Lying 113/74 Blood Pressure - Sitting 115/74 Blood Pressure- Standing 125/83 Blood Pressure 127/74 Blood Pressure [Right Arm] 113/74 Blood Pressure Mean 91 Blood Pressure Mean [Right Arm] 87 Blood Pressure Position Sitting Blood Pressure Position [Right Arm] Sitting Pulse Oximetry 97 98 Oxygen Delivery Method Room Air Room Air Sepsis Recent Fever Within 48 Hours No Sepsis New/Unexplained Change in Mental Status N/A Sepsis Action Taken by Nursing No Action Required 08/09/21 14:00 Temperature Temperature Source Pulse Rate - Lying Pulse Rate - Sitting Pulse Rate - Standing Pulse Rate Pulse Rate [Apical] 61 Pulse Rhythm Pulse Strength Respiratory Rate 18 Respiratory Effort / Characteristics Respiratory Depth Respiratory Pattern Blood Pressure - Lying Blood Pressure - Sitting Blood Pressure- Standing Blood Pressure Blood Pressure [Right Arm] 126/88 Blood Pressure Mean Blood Pressure Mean [Right Arm] 100 Blood Pressure Position Blood Pressure Position [Right Arm] Pulse Oximetry 97 Oxygen Delivery Method Room Air Sepsis Recent Fever Within 48 Hours Sepsis New/Unexplained Change in Mental Status Sepsis Action Taken by Usp Medications Current Medication List: was personally reviewed by me Laboratory Data Attestation: I reviewed the patient's lab results. Result diagrams: 08/09/21 10:48 08/09/21 10:48 Lab Results 08/09/21 08/09/21 08/09/21 Range/Units 10:48 10:48 11:01 WBC 5.38 (4.8-10.8) K/uL RBC 4.15 L (4.7-6.1) M/uL Hgb 13.2 L (14.0-18.0) g/dL Hct 39.4 L (42-52) % MCV 94.9 (80-100) fL MCH 31.8 (25-34) pg MCHC 33.5 (32-36) g/dL RDW Std Deviation 49.6 H (36.4-46.3) fL RDW Coeff of Vinny 14.3 (11.5-14.5) % Plt Count 153 (130-400) K/uL MPV 10.1 (7.4-10.4) fL Immature Gran % (Auto) 0.4 % Neut % (Auto) 49.6 % Lymph % (Auto) 21.0 % Yates % (Auto) 27.7 % Eos % (Auto) 1.1 % Baso % (Auto) 0.2 % Neut # (Auto) 2.67 (1.4-6.5) K/uL Lymph # (Auto) 1.13 L (1.2-3.4) K/uL Yates # (Auto) 1.49 H (0.11-0.59) K/uL Eos # (Auto) 0.06 (0-0.5) K/uL Baso # (Auto) 0.01 (0-0.2) K/uL Immature Gran # (Auto) 0.02 (0.00-0.02) K/uL Sodium 139 (136-145) mmol/L Potassium 4.1 (3.5-5.1) mmol/L Chloride 108 H (98-107) mmol/L Carbon Dioxide 24 (21-32) mmol/L Anion Gap 7.0 (3-11) BUN 26 H (7-18) mg/dl Creatinine 1.63 H (0.6-1.4) mg/dl Est Cr Clr Drug Dosing 43.2 ml/min Est GFR ( Amer) 45.8 ml/min Est GFR (Non-Af Amer) 39.5 ml/min BUN/Creatinine Ratio 16.1 (10-20) Glucose 253 H (70-99) mg/dl Calcium 8.5 (8.5-10.1) mg/dl Magnesium 2.0 (1.8-2.4) mg/dl Total Bilirubin 0.3 (0.2-1) mg/dl AST 18 (15-37) U/L ALT 20 (12-78) U/L Alkaline Phosphatase 85 (45-117) U/L Troponin I < 0.015 (0-0.045) ng/ml Total Protein 6.6 (6.4-8.2) gm/dl Albumin 3.6 (3.4-5.0) gm/dl Globulin 3.0 (2.5-4.0) gm/dl Albumin/Globulin Ratio 1.2 (0.9-2) TSH 2.370 (0.300-4.500) uIu/ml Urine Color Urine Appearance (Clear) Urine pH (4.5-7.5) Ur Specific Byron (1.000-1.030) Urine Protein (Negative) Urine Glucose (UA) (Negative) Urine Ketones (Negative) Urine Blood (Negative) Urine Nitrite (Negative) Urine Bilirubin (Negative) Urine Urobilinogen (Negative) Ur Leukocyte Esterase (Negative) Lyme Disease IgG Ab Cancelled Lyme Disease IgM Ab Cancelled COVID-19 Eval Order SARS-CoV-2 (PCR) (Negative) 08/09/21 08/09/21 08/09/21 Range/Units 13:00 13:00 13:15 WBC (4.8-10.8) K/uL RBC (4.7-6.1) M/uL Hgb (14.0-18.0) g/dL Hct (42-52) % MCV (80-100) fL MCH (25-34) pg MCHC (32-36) g/dL RDW Std Deviation (36.4-46.3) fL RDW Coeff of Vinny (11.5-14.5) % Plt Count (130-400) K/uL MPV (7.4-10.4) fL Immature Gran % (Auto) % Neut % (Auto) % Lymph % (Auto) % Yates % (Auto) % Eos % (Auto) % Baso % (Auto) % Neut # (Auto) (1.4-6.5) K/uL Lymph # (Auto) (1.2-3.4) K/uL Yates # (Auto) (0.11-0.59) K/uL Eos # (Auto) (0-0.5) K/uL Baso # (Auto) (0-0.2) K/uL Immature Gran # (Auto) (0.00-0.02) K/uL Sodium (136-145) mmol/L Potassium (3.5-5.1) mmol/L Chloride (98-107) mmol/L Carbon Dioxide (21-32) mmol/L Anion Gap (3-11) BUN (7-18) mg/dl Creatinine (0.6-1.4) mg/dl Est Cr Clr Drug Dosing ml/min Est GFR ( Amer) ml/min Est GFR (Non-Af Amer) ml/min BUN/Creatinine Ratio (10-20) Glucose (70-99) mg/dl Calcium (8.5-10.1) mg/dl Magnesium (1.8-2.4) mg/dl Total Bilirubin (0.2-1) mg/dl AST (15-37) U/L ALT (12-78) U/L Alkaline Phosphatase (45-117) U/L Troponin I (0-0.045) ng/ml Total Protein (6.4-8.2) gm/dl Albumin (3.4-5.0) gm/dl Globulin (2.5-4.0) gm/dl Albumin/Globulin Ratio (0.9-2) TSH (0.300-4.500) uIu/ml Urine Color Yellow Urine Appearance Clear (Clear) Urine pH 5.0 (4.5-7.5) Ur Specific Byron 1.014 (1.000-1.030) Urine Protein Negative (Negative) Urine Glucose (UA) Trace H (Negative) Urine Ketones Negative (Negative) Urine Blood Negative (Negative) Urine Nitrite Negative (Negative) Urine Bilirubin Negative (Negative) Urine Urobilinogen Negative (Negative) Ur Leukocyte Esterase Negative (Negative) Lyme Disease IgG Ab Lyme Disease IgM Ab COVID-19 Eval Order Covid19 at [facility] SARS-CoV-2 (PCR) NEGATIVE (Negative) 08/09/21 Range/Units 14:18 WBC (4.8-10.8) K/uL RBC (4.7-6.1) M/uL Hgb (14.0-18.0) g/dL Hct (42-52) % MCV (80-100) fL MCH (25-34) pg MCHC (32-36) g/dL RDW Std Deviation (36.4-46.3) fL RDW Coeff of Vinny (11.5-14.5) % Plt Count (130-400) K/uL MPV (7.4-10.4) fL Immature Gran % (Auto) % Neut % (Auto) % Lymph % (Auto) % Yates % (Auto) % Eos % (Auto) % Baso % (Auto) % Neut # (Auto) (1.4-6.5) K/uL Lymph # (Auto) (1.2-3.4) K/uL Yates # (Auto) (0.11-0.59) K/uL Eos # (Auto) (0-0.5) K/uL Baso # (Auto) (0-0.2) K/uL Immature Gran # (Auto) (0.00-0.02) K/uL Sodium (136-145) mmol/L Potassium (3.5-5.1) mmol/L Chloride (98-107) mmol/L Carbon Dioxide (21-32) mmol/L Anion Gap (3-11) BUN (7-18) mg/dl Creatinine (0.6-1.4) mg/dl Est Cr Clr Drug Dosing ml/min Est GFR ( Amer) ml/min Est GFR (Non-Af Amer) ml/min BUN/Creatinine Ratio (10-20) Glucose (70-99) mg/dl Calcium (8.5-10.1) mg/dl Magnesium (1.8-2.4) mg/dl Total Bilirubin (0.2-1) mg/dl AST (15-37) U/L ALT (12-78) U/L Alkaline Phosphatase (45-117) U/L Troponin I (0-0.045) ng/ml Total Protein (6.4-8.2) gm/dl Albumin (3.4-5.0) gm/dl Globulin (2.5-4.0) gm/dl Albumin/Globulin Ratio (0.9-2) TSH (0.300-4.500) uIu/ml Urine Color Urine Appearance (Clear) Urine pH (4.5-7.5) Ur Specific Byron (1.000-1.030) Urine Protein (Negative) Urine Glucose (UA) (Negative) Urine Ketones (Negative) Urine Blood (Negative) Urine Nitrite (Negative) Urine Bilirubin (Negative) Urine Urobilinogen (Negative) Ur Leukocyte Esterase (Negative) Lyme Disease IgG Ab Negative Lyme Disease IgM Ab Negative COVID-19 Eval Order SARS-CoV-2 (PCR) (Negative) Administered Medications Lactated Ringer's (Lr) 1,000 mls @ 100 mls/hr IV .Q10H JERMAINE Stop: 09/08/21 14:44 Last Admin: 08/09/21 15:44 Dose: 100 mls/hr Documented by: [id number] Discontinued Medications Sodium Chloride (Nss 1000ml) 500 mls @ 999 mls/hr IV .Q31M ONE Stop: 08/09/21 12:35 Last Infusion: 08/09/21 13:56 Dose: 0 mls/hr Documented by: [id number] Admin: 08/09/21 12:52 Dose: 999 mls/hr Documented by: [id number] Imaging Data Radiologist's Impression: Head CT 08/09/21 10:21 CT head/brain wo con CLINICAL HISTORY: 81 years-old Male with fall. Acute head trauma status post fall TECHNIQUE: Multiple axial CT images of the head were obtained without contrast. A dose lowering technique was utilized adhering to the principles of ALARA. CT DOSE: 729.78 mGycm COMPARISON: Head CT 12/23/2020 FINDINGS: No acute intracranial hemorrhage, midline shift, intracranial mass, hydrocephalus, territorial ischemia or abnormal extra-axial collection. Age- related involutional changes. Cavum septum pellucidum and vergae. Cerebral vascular calcifications. The calvarium is intact. The paranasal sinuses, mastoid air cells, and middle ear cavities are clear. IMPRESSION: No acute intracranial abnormality or calvarial fracture. ACT 112: Negative or not required by law. The above report was generated using voice recognition software. It may contain grammatical, syntax or spelling errors. Electronically signed by: Derrick Lang M.D. 08/09/2021 10:46 AM Head Trauma GCS Score: 15 Discharge Plan Visit Data Chief Complaint: Fall Stated Complaint: FALL-BUMP ON HEAD,LIGHT HEADED EPISODES ED Provider: Gordy Grimaldo Patient Disposition: Admitted As Inpatient Condition: Fair Prescriptions Prescriptions: No Action finasteride [Proscar] 5 mg tablet 5 mg PO HS Qty: 90 RF: 3 quinapril 5 mg tablet 5 mg PO DAILY Qty: 30 RF: 5 clopidogrel [Plavix] 75 mg tablet 75 mg PO PM Qty: 90 RF: 3 pravastatin 10 mg tablet 20 mg PO 2XWK RF: 0 Trulicity 1.5 mg/0.5 mL pen injector 1.5 mg subcut WK Qty: 2 RF: 3 glimepiride 4 mg tablet 4 mg PO QPM Qty: 90 RF: 3 aspirin 81 mg Tablet,Delayed Release (Dr/Ec) 81 mg PO QAM RF: 0 clindamycin HCl 300 mg capsule 600 mg PO DIRECTED PRN (Reason: pretreat dental appt) RF: 0 tamsulosin [Flomax] 0.4 mg capsule 0.4 mg PO HS RF: 0 levothyroxine [Synthroid] 50 mcg tablet 50 mcg PO QAM RF: 0 glucosamine sanchez 2KCl-chondroit [Glucosamine-Chondroitin 3X Str] 750-600 mg Tablet 2 tab PO BID RF: 0 cholecalciferol (vitamin D3) [Vitamin D3] 2,000 unit Capsule 2,000 unit PO BID RF: 0 Hold Instructions: not taking coenzyme Q10 [CoQ-10] 100 mg Capsule 100 mg PO DAILY RF: 0 Neuriva Original 100-100 mg Capsule 1 cap PO QAM RF: 0
[2021-08-09] MEDS ORDERED: SODIUM CHLORIDE 0.9% 1000ML 500 ML IV ONE (12:05)
[2021-08-09 13:34] LABS: Appearance Urine Clear (Clear); Bilirubin Urine Negative (Negative); Blood Urine Negative (Negative); Color Urine Yellow; Glucose Urine UA Trace (Negative); Ketones Urine Negative (Negative); Leukocyte Esterase Urine Negative (Negative); Nitrite Urine Negative (Negative); Protein Urine Negative (Negative); Specific Gravity Urine 1.014 (1.000-1.030); Urobilinogen Urine Negative (Negative)
--- NOTE | 2021-08-09 14:04 | History & Physical Report ---
Date of Service August 09, 2021 Assessment & Plan (1) Abnormal ECG: Plan: Patient with known first degree AV block with possible dropped beat varying DE intervals - QTC 464 - Troponin negative and no other cardiac complaints - Patient admitted for telemetry monitoring and symptom evaluation - Hold finasteride and Tamsulosin for tonight with syncope- restart in morning if able - Cardiology consulted- appreciate assistance (2) Syncope: Plan: Syncope with collapse- ? LOC - CT head negative for acute changes - neurological check q4- repeat non con head CT if changes occur - Telemetry as above - medications as above - ECHO in 2019 with normal EF 60-65%- trace MR, normal Aortic valve- no wall motion abnormalities (3) History of loop recorder: Plan: Cardiology consulted- was recently reviewed in June appointment (4) Diabetes: Plan: On Trulicity at home- takes every Saturday - Place on sliding scale here for >180 (5) Hypertension: Plan: Continue quinapril, continue asa, continue plavix continue pravastatin (6) S/P knee replacement: Plan: chronic no acute needs (7) Spinal stenosis of lumbar region: Plan: as above restart glucosamine at discharge (8) Hypothyroidism: Plan: TSH normal- continue Levothyroxine 50 mcg daily (9) CKD (chronic kidney disease): Plan: CKD III - ALMOND SORTER at 1.63- near baseline 1.4-1.6 - Follow avoid nephrotoxic medications as able - Continue ZENAIDA for now (10) Carotid artery stenosis: Plan: History of TIA(2001) as well, continue statin, ASA and Plavix - most recent imaging from [facility] attached to soft chart - as per HPI History of Present Illness Primary Care Provider: Dick Adams MD 81 YOM with past medical history: COPD, DM II (on Trulicity), HTN, Hypothyroidism, CKD III, TIA, Carotid artery stenosis, HLD. Patient comes in to the EMD today following a syncopal episode this morning following getting out of bed. The patient normally has some orthostasis which he can identify that he needs to wait to stand up or he sits down and waits until it resolves. He feels today's episode came on suddenly and denies any light headedness, tunnel vision or vision changes, flashing lights, salivating or warm/flush feeling. He states that he was aware that he was falling and fell on a carpeted floor. He then got up and walked out to the kitchen to tell his he fell. She reports that he was not pale in color or sweating. The patient does follow up with Dr. Leung for his prolonged history of dizziness - he has a loop recorder in that was reviewed in June that did not show any significant cardiac events. In the EMD the patient had routine labs drawn and an ECG performed. His ECG was questionably Mobitz II. His telemetry was reviewed which shows varying DE intervals followed by 2-3 closer beats and then back to his varying DE underlying rate, with an occasional junctional beat noted. His HR has remained in the 60-70 range during HPI and no notable Hypotension. Patient has had recent imaging done of his carotid arteries and was to follow up with his vascular surgeon this week to discuss results. These results were interpreted as 50-69% stenosis of the NEGIN and less than 50% of the LICA (reports placed on soft chart). Patient will be admitted for telemetry monitoring and cardiology consult for electrophysiology following. Patient has received his COVID vaccine and his COVID test on admission is: Allergies Allergy/AdvReac Type Severity Reaction Status Date / Time oxycodone Allergy Severe Hallucinati Verified 08/09/21 11:49 ng Penicillins Allergy Intermediate RASH Verified 08/09/21 11:49 Sulfa (Sulfonamide Allergy Intermediate RASH Verified 08/09/21 11:49 Antibiotics) gluten Allergy Mild GI SYMPTOMS Verified 08/09/21 11:49 lactose Allergy Mild GI SYMPTOMS Verified 08/09/21 11:49 tramadol Allergy Mild HALLUCINATI Verified 08/09/21 11:49 ONS Ckinxdd-Vsf-Tub Reductase AdvReac Intermediate MUSCLE Verified 08/09/21 11:49 Inhibitor WEAKNESS, BRAIN FOG Home Medications Medication Instructions Recorded Confirmed Type cholecalciferol (vitamin D3) 50 2,000 unit PO BID 07/13/19 08/09/21 History mcg (2,000 unit) capsule (Vitamin D3) aspirin 81 mg tablet,delayed 81 mg PO QAM 10/08/20 08/09/21 History release clindamycin HCl 300 mg capsule 600 mg PO DIRECTED PRN 10/08/20 08/09/21 History glucosamine sulf dipotassium Cl 2 tab PO BID 10/08/20 08/09/21 History 750 mg-chondroitin sulf 600 mg tablet (Glucosamine-Chondroitin 3X Triple Strength) levothyroxine 50 mcg tablet 50 mcg PO QAM 10/08/20 08/09/21 History (Synthroid) tamsulosin 0.4 mg capsule (Flomax) 0.4 mg PO HS 10/08/20 08/09/21 History pravastatin 10 mg tablet 20 mg PO 2XWK 05/03/21 08/09/21 History dulaglutide 1.5 mg/0.5 mL 1.5 mg SUBCUT WK #2 ml 05/31/21 08/09/21 Rx subcutaneous pen injector (Trulicity) coenzyme Q10 100 mg capsule 100 mg PO DAILY 06/19/21 08/09/21 History (CoQ-10) coffee extract 100 mg-phosphatidyl 1 cap PO QAM 06/19/21 08/09/21 History serine 100 mg capsule (Neuriva Original) finasteride 5 mg tablet (Proscar) 5 mg PO HS #90 tab 06/26/21 08/09/21 Rx glimepiride 4 mg tablet 4 mg PO QPM #90 tab 07/19/21 08/09/21 Rx clopidogrel 75 mg tablet (Plavix) 75 mg PO PM #90 tab 08/07/21 08/09/21 Rx quinapril 5 mg tablet 5 mg PO DAILY #30 tab 08/07/21 08/09/21 Rx Past Med/Surg History Medical History Benign colonic polyp Carotid artery stenosis Chronic obstructive pulmonary disease no inhalers currently Diabetes NIDDM History of prostate cancer treated with radiation. no surgery. Hypercholesteremia Hypertension denies "takes lisinopril to protect kidneys" Hypothyroidism Spinal stenosis of lumbar region Stage III chronic kidney disease Syncope ~2-3 years ago -- has a loop recorder in place TIA (transient ischemic attack) (~2001) Surgical History H/O colonoscopy H/O hernia repair as a toddler History of knee replacement right TKA History of loop recorder in place currently. follows with Dr. Leung. History of tonsillectomy and adenoidectomy Hx of cholecystectomy S/P lumbar laminectomy Family History Brother Prostate cancer Colon cancer Grandfather Rectal cancer Unknown Heart disease Hypertension Cancer Mother Congestive heart failure Diabetes Grandmother (Paternal) Stroke Grandfather (Maternal) Myocardial infarction Denies family history of Ovarian cancer Breast cancer Social History Smoking Status: Never smoker Tobacco Type: Pipe Second Hand Exposure: Yes; Hx Alcohol Use: Yes Alcohol type: hard liquor Hx Substance Use: No Preferred Language: Monegasque Communication Ability: Effective Visual Impairment: No Limitations Hearing Ability: Use of Hearing Aid Revenue Stamper Required: No Beliefs That Will Affect Care: None marital status: Current Living Situation: Spouse current occupational status: retired Feels Safe at Home: Yes Childhood Exposure to Second-Hand Smoke: Yes Dental Care, Regularly: Yes Physical Activity Frequency: Daily Seatbelt Use: always Sunscreen Use: Yes Assistive Devices: None Review of Systems Review of Systems: REVIEW OF SYSTEMS: Constitutional: No fever, sweats or chills Eyes: No diplopia, no worsening or blurred vision ENT: normal hearing, no trouble swallowing Respiratory: No cough, sputum, dyspnea at rest or on exertion Cardiovascular: (+) dizziness, sycnope, No chest pain, tightness or palpitations Abdomen: No pain, nausea, vomiting, diarrhea or constipation Musculoskeletal: (+) right knee and ankle joint pain, calf pain, swelling Neurologic: No weakness, numbness/tingling, or balance problems Psychiatric: No anxiety or depression Skin: No rash or itch Physical Exam Physical Exam: PHYSICAL EXAM: General: awake, alert, no apparent distress Head: Normocephalic, atraumatic ENT: PERRL, EOMI, no pharyngeal exudate, mucous membranes moist Neuro: AAO x 3, speech clear and appropriate, strength intact bilaterally 5/5, sensation intact and equal all extremities and dermatomes, no pronator drift Chest: equal rise and fall of the chest, no accessory muscle use, no heaves or thrills, Clear to auscultation, on room air, Cardiac: Regular rate and rhythm, telemetry reviewed- as per HPI, skin warm dry, cap refill <3 seconds, peripheral pulses +2 no JVD, no murmur, no edema GI: NABS x 4 quadrants, soft, nontender to palpation, no rebound, guarding or tenderness : Spontaneously voiding, no pain, no CVA tenderness, Extremities: Normal inspection, no peripheral edema or erythema, calfs nontender to palpation Psych: Normal mood and affect Skin: no rash or erythema Results & Data Results & Data ([facility]) Vital Signs (Past 12 Hours) Vital Signs Temp Pulse Pulse Resp BP BP Pulse Ox 08/09/21 12:04 86 18 113/74 98 08/09/21 10:15 36.9 C 100 H 18 127/74 97 Laboratory Results Abnormal lab results 08/09/21 08/09/21 08/09/21 Range/Units 10:48 10:48 13:15 RBC 4.15 L (4.7-6.1) M/uL Hgb 13.2 L (14.0-18.0) g/dL Hct 39.4 L (42-52) % RDW Std Deviation 49.6 H (36.4-46.3) fL Lymph # (Auto) 1.13 L (1.2-3.4) K/uL Davison # (Auto) 1.49 H (0.11-0.59) K/uL Chloride 108 H (98-107) mmol/L BUN 26 H (7-18) mg/dl Creatinine 1.63 H (0.6-1.4) mg/dl Glucose 253 H (70-99) mg/dl Urine Glucose (UA) Trace H (Negative) Diagnostic Findings Head CT 08/09/21 10:21 CT head/brain wo con CLINICAL HISTORY: 81 years-old Male with fall. Acute head trauma status post fall TECHNIQUE: Multiple axial CT images of the head were obtained without contrast. A dose lowering technique was utilized adhering to the principles of ALARA. CT DOSE: 729.78 mGycm COMPARISON: Head CT 12/23/2020 FINDINGS: No acute intracranial hemorrhage, midline shift, intracranial mass, hydrocephalus, territorial ischemia or abnormal extra-axial collection. Age- related involutional changes. Cavum septum pellucidum and vergae. Cerebral vascular calcifications. The calvarium is intact. The paranasal sinuses, mastoid air cells, and middle ear cavities are clear. IMPRESSION: No acute intracranial abnormality or calvarial fracture. ACT 112: Negative or not required by law. The above report was generated using voice recognition software. It may contain grammatical, syntax or spelling errors. Electronically signed by: Derrick Lang M.D. 08/09/2021 10:46 AM Medications Administered Home Medications cholecalciferol (vitamin D3) 50 mcg (2,000 unit) capsule (Vitamin D3) 2,000 unit PO BID 07/13/19 [History Confirmed 08/09/21] aspirin 81 mg tablet,delayed release 81 mg PO QAM 10/08/20 [History Confirmed 08/09/21] clindamycin HCl 300 mg capsule 600 mg PO DIRECTED PRN 10/08/20 [History Confirmed 08/09/21] glucosamine sulf dipotassium Cl 750 mg-chondroitin sulf 600 mg tablet (Glucosamine-Chondroitin 3X Triple Strength) 2 tab PO BID 10/08/20 [History Confirmed 08/09/21] levothyroxine 50 mcg tablet (Synthroid) 50 mcg PO QAM 10/08/20 [History Confirmed 08/09/21] tamsulosin 0.4 mg capsule (Flomax) 0.4 mg PO HS 10/08/20 [History Confirmed 08/09/21] pravastatin 10 mg tablet 20 mg PO 2XWK 05/03/21 [History Confirmed 08/09/21] dulaglutide 1.5 mg/0.5 mL subcutaneous pen injector (Trulicity) 1.5 mg SUBCUT WK #2 ml 05/31/21 [Rx Confirmed 08/09/21] coenzyme Q10 100 mg capsule (CoQ-10) 100 mg PO DAILY 06/19/21 [History Confirmed 08/09/21] coffee extract 100 mg-phosphatidyl serine 100 mg capsule (Neuriva Original) 1 cap PO QAM 06/19/21 [History Confirmed 08/09/21] finasteride 5 mg tablet (Proscar) 5 mg PO HS #90 tab 06/26/21 [Rx Confirmed ] glimepiride 4 mg tablet 4 mg PO QPM #90 tab 07/19/21 [Rx Confirmed 08/09/21] clopidogrel 75 mg tablet (Plavix) 75 mg PO PM #90 tab 08/07/21 [Rx Confirmed 08/09/21] quinapril 5 mg tablet 5 mg PO DAILY #30 tab 08/07/21 [Rx Confirmed 08/09/21] Discontinued Medications Sodium Chloride (Nss 1000ml) 500 mls @ 999 mls/hr IV .Q31M ONE Stop: 08/09/21 12:35 Last Infusion: 08/09/21 13:56 Dose: 0 mls/hr Documented by: [id number] Admin: 08/09/21 12:52 Dose: 999 mls/hr Documented by: [id number] ECG Additional Comments: Sinus Rythm with 2nd degree AV block MOBITZ (1), LAFB, QTC 464 Code Status & VTE Plan Code Status CODE: FULL VTE: SCDs, VTE Supervising Physician Co-Signing Physician Notes Patient was seen and examined independently I discussed the case with Kapil GONZALEZ I reviewed pertinent past medical social family history and also the plan of care and agree with the plan of care. Patient with history of traumatic syncope. Patient has a loop recorder has been followed by EP. He appears to be in a Mobitz type II block here in the emergency department. He does have a small hematoma on his left posterior scalp. He has had headaches that preceded the fall almost daily. He has no other neurological deficits had no chest pain associated with this. Examination currently his cardiac exam sounds to be regular on the monitor he was in sinus rhythm his lungs are clear he has no other signs of acute injury. he be brought to our facility with cardiac monitoring cardiac consultation electrophysiology evaluation. We did download his loop recorder information and subsequently awaiting interpretation and return to our facility Any exceptions will be noted below PG Care Time/CCT Total # of Minutes Spent Total Time Spent with Patient: Total time spent is greater than 50% in coordination of care (as documented) at patient's floor/unit and/or counseling patient: Coding Level of Care Code 91870 Initial Inpt Care Lvl 3 Diagnoses Abnormal ECG R94.31 History of loop recorder Z98.890 Hypertension I10 S/P knee replacement Z96.659 Spinal stenosis of lumbar region M48.061 Hypothyroidism E03.9 CKD (chronic kidney disease) N18.9 Syncope R55 Carotid artery stenosis I65.29 Diabetes E11.9
[2021-08-09 15:00] LABS: Lyme Ab IgG w/WB Rflx Negative (Negative)
[2021-08-09 15:01] LABS: Lyme Ab IgM w/WB Rflx Negative (Negative)
[2021-08-09] MEDS: LACTATED RINGER'S 1,000 ML IV SCH (15:44)
--- NOTE | 2021-08-09 15:58 | Electrocardiogram Report ---
Test Reason : Blood Pressure : / mmHG Vent. Rate : 085 BPM Atrial Rate : 092 BPM P-R Int : 000 ms QRS Dur : 108 ms QT Int : 390 ms P-R-T Axes : 000 -52 036 degrees QTc Int : 464 ms Sinus rhythm with 2nd degree A-V block (Mobitz I) Left anterior fascicular block Abnormal ECG When compared with ECG of 15-JUL-2019 09:24, Sinus rhythm is now with 2nd degree A-V block (Mobitz I) Confirmed by Ludin Brownlee ([id number]) on 08/09/2021 3:58:06 PM Referred By: REFERRED SELF Confirmed By:Ludin Brownlee
--- NOTE | 2021-08-09 18:07 | Cardiology Consultation ---
Date of Consultation August 09, 2021 Assessment & Plan (1) Syncope: Episodes appear to have an orthostatic component, agree with holding quinapril currently and perhaps long-term. No other routine vasoactive medications. Loop recorder suggests that this is not a dysrhythmic event, but will review this with Dr. Batista to ensure the tracings reflect the appropriate timeframe (during which the patient was symptomatic). (2) Mobitz type 1 second degree AV block: Given evidence of conduction system abnormality, may be appropriate to leave his loop recorder in place longer term (if battery life allows). (3) Carotid artery stenosis: Followed by vascular surgery at [facility]. Medically managed, on aspirin and clopidogrel. History of Present Illness Reason for Consultation: Syncope Requesting Physician: Bar Hamilton MD Attending Physician: Bar Hamilton MD History of Present Illness 81-year-old man [facility] of [facility] chronic kidney disease, remote CVA, carotid disease (50-69% right internal carotid, significant left vertebral stenosis), who has an implantable loop recorder placed to evaluate recurrent dizziness/syncope over the past 2 years who now presents after a syncopal episode. He often notes orthostatic lightheadedness, but today after standing up and walking a few steps he felt dizzy and lightheaded and fell backwards striking the back of his head but not actually losing consciousness. He denies chest pain, subjective palpitations, dyspnea, or other epiphenomenon prior to or subsequent to this episode. ER evaluation showed a negative troponin, ECG showed sinus rhythm with Mobitz type I second-degree AV block. BP is normotensive, of note he did have his vasoactive medications titrated downward in the past due to orthostasis. Loop recorder was interrogated, tracings from just prior to report of symptoms this morning this showed only sinus rhythm with a single PVC, no pauses or dysrhythmias. At the time of my evaluation, he was comfortable and had no somatic complaints other than mild discomfort at the site of his occipital hematoma. Allergies Allergy/AdvReac Type Severity Reaction Status Date / Time oxycodone Allergy Severe Hallucinati Verified 08/09/21 11:49 ng Penicillins Allergy Intermediate RASH Verified 08/09/21 11:49 Sulfa (Sulfonamide Allergy Intermediate RASH Verified 08/09/21 11:49 Antibiotics) gluten Allergy Mild GI SYMPTOMS Verified 08/09/21 11:49 lactose Allergy Mild GI SYMPTOMS Verified 08/09/21 11:49 tramadol Allergy Mild HALLUCINATI Verified 08/09/21 11:49 ONS Irvreek-Hma-Mph Reductase AdvReac Intermediate MUSCLE Verified 08/09/21 11:49 Inhibitor WEAKNESS, BRAIN FOG Home Medications Medication Instructions Recorded Confirmed Type cholecalciferol (vitamin D3) 50 2,000 unit PO BID 07/13/19 08/09/21 History mcg (2,000 unit) capsule (Vitamin D3) aspirin 81 mg tablet,delayed 81 mg PO QAM 10/08/20 08/09/21 History release clindamycin HCl 300 mg capsule 600 mg PO DIRECTED PRN 10/08/20 08/09/21 History glucosamine sulf dipotassium Cl 2 tab PO BID 10/08/20 08/09/21 History 750 mg-chondroitin sulf 600 mg tablet (Glucosamine-Chondroitin 3X Triple Strength) levothyroxine 50 mcg tablet 50 mcg PO QAM 10/08/20 08/09/21 History (Synthroid) tamsulosin 0.4 mg capsule (Flomax) 0.4 mg PO HS 10/08/20 08/09/21 History pravastatin 10 mg tablet 20 mg PO 2XWK 05/03/21 08/09/21 History dulaglutide 1.5 mg/0.5 mL 1.5 mg SUBCUT WK #2 ml 05/31/21 08/09/21 Rx subcutaneous pen injector (Trulicity) coenzyme Q10 100 mg capsule 100 mg PO DAILY 06/19/21 08/09/21 History (CoQ-10) coffee extract 100 mg-phosphatidyl 1 cap PO QAM 06/19/21 08/09/21 History serine 100 mg capsule (Neuriva Original) finasteride 5 mg tablet (Proscar) 5 mg PO HS #90 tab 06/26/21 08/09/21 Rx glimepiride 4 mg tablet 4 mg PO QPM #90 tab 07/19/21 08/09/21 Rx clopidogrel 75 mg tablet (Plavix) 75 mg PO PM #90 tab 08/07/21 08/09/21 Rx quinapril 5 mg tablet 5 mg PO DAILY #30 tab 08/07/21 08/09/21 Rx Patient History Medical History Benign colonic polyp Carotid artery stenosis Chronic obstructive pulmonary disease no inhalers currently Diabetes NIDDM History of prostate cancer treated with radiation. no surgery. Hypercholesteremia Hypertension denies "takes lisinopril to protect kidneys" Hypothyroidism Spinal stenosis of lumbar region Stage III chronic kidney disease Syncope ~2-3 years ago -- has a loop recorder in place TIA (transient ischemic attack) (~2001) Surgical History H/O colonoscopy H/O hernia repair as a toddler History of knee replacement right TKA History of loop recorder in place currently. follows with Dr. Leung. History of tonsillectomy and adenoidectomy Hx of cholecystectomy S/P lumbar laminectomy Family History Brother Prostate cancer Colon cancer Grandfather Rectal cancer Unknown Heart disease Hypertension Cancer Mother Congestive heart failure Diabetes Grandmother (Paternal) Stroke Grandfather (Maternal) Myocardial infarction Denies family history of Ovarian cancer Breast cancer Social History Smoking Status: Never smoker Tobacco Type: Pipe Second Hand Exposure: Yes; Hx Alcohol Use: Yes Alcohol type: hard liquor Hx Substance Use: No Preferred Language: Eritrean Communication Ability: Effective Visual Impairment: No Limitations Hearing Ability: Use of Hearing Aid Electromechanical Assembly Technician Required: No Beliefs That Will Affect Care: None marital status: Current Living Situation: Spouse current occupational status: retired Feels Safe at Home: Yes Childhood Exposure to Second-Hand Smoke: Yes Dental Care, Regularly: Yes Physical Activity Frequency: Daily Seatbelt Use: always Sunscreen Use: Yes Assistive Devices: None Physical Exam Physical Exam: Normal habitus elderly white male acardell no distress. Skin: no ecchymoses or generalized lesions. HEENT: 2 cm left occipital scalp hematoma, otherwise unremarkable. Neck: Jugular venous pulse appears normal, no obvious carotid bruits. Lungs: clear. Cardiac: regular rhythm with occasional missed beat, 2/6 apical holosystolic murmur rating to the axilla, no diastolic murmur or gallop. Abdomen: benign. Extremities: no edema, pulses intact. Neurologic: normal affect, nonfocal. Results & Data ([facility]) Vital Signs (Past 12 Hours) Vital Signs Temp Pulse Pulse Resp BP BP Pulse Ox 08/09/21 16:00 98.4 F 68 18 128/80 98 08/09/21 14:00 61 18 126/88 97 08/09/21 12:04 86 18 113/74 98 08/09/21 10:15 98.4 F 100 H 18 127/74 97 Laboratory Results Troponin negative. Hemoglobin 13.2 with normal white count platelet count. Normal electrolytes, BUN is 26, creatinine 1.63. Diagnostic Findings ECG showed sinus rhythm at 85 bpm with second-degree Mobitz type I AV block and left anterior fascicular block. Compared with 2019 ECG, second-degree AV block is new. Head CT was unremarkable. Echocardiogram 2019 showed normal systolic function (EF 60 to 65%), mild LVH, mild aortic sclerosis, severe mitral annular calcification with trace mitral regurgitation.
[2021-08-09] MEDS ORDERED: ACETAMINOPHEN 325 MG TAB PO PRN (18:17)
[2021-08-09] MEDS ORDERED: GLUCOSE 40% GEL 15 GM TUBE PO PRN (18:17)
[2021-08-09] MEDS ORDERED: GLUCAGON FOR INJ 1 MG VIAL SQ PRN (18:17)
[2021-08-09] MEDS ORDERED: CARBOHYDRATES FOR HYPOGLYCEMIA PO PRN (18:17)
[2021-08-09] MEDS ORDERED: GLUCOSE 10 TABS/TUBE PO PRN (18:17)
[2021-08-09] MEDS ORDERED: DEXTROSE 50% 50 ML SYRINGE IV PRN (18:17)
[2021-08-09] MEDS ORDERED: ONDANSETRON INJ 2 MG/ML 2 ML VIAL IV PRN (18:17)
[2021-08-09] MEDS: GLUCOSAMINE SULFATE 500 MG CAP PO SCH (20:20)
[2021-08-09] MEDS: HEPARIN SOD 5,000 UNIT/0.5 ML VIAL SQ SCH (20:21)
[2021-08-09] MEDS: INSULIN ASPART 100 UNITS/ML 3 ML PEN SC SCH ×2 (20:22→20:24)
[2021-08-09] MEDS ORDERED: CLOPIDOGREL BISULFATE 75 MG TAB PO SCH (21:00)
[2021-08-10] MEDS: LACTATED RINGER'S 1,000 ML IV SCH ×2 (03:53→12:16)
[2021-08-10 06:22] LABS: Basophils # (auto) 0.01 K/uL (0-0.2); Basophils % (auto) 0.2 %; Eosinophils # (auto) 0.04 K/uL (0-0.5); Eosinophils % (auto) 0.8 %; Hematocrit (blood only) 35.5 % (42-52); Hemoglobin 11.8 g/dL (14.0-18.0); Immature Granulocytes # (auto) 0.02 K/uL (0.00-0.02); Immature Granulocytes % (auto) 0.4 %; Lymphocytes # (auto) 1.16 K/uL (1.2-3.4); Lymphocytes % (auto) 23.8 %; Mean Corpuscular Hemoglobin 31.9 pg (25-34); Mean Corpuscular Hgb Conc 33.2 g/dL (32-36); Mean Corpuscular Volume 95.9 fL (80-100); Mean Platelet Volume 10.1 fL (7.4-10.4); Monocytes # (auto) 1.35 K/uL (0.11-0.59); Monocytes % (auto) 27.7 %; Neutrophils % (auto) 47.1 %; Platelet Count 139 K/uL (130-400); RDW Coefficient of Variation 14.4 % (11.5-14.5); RDW Standard Deviation 50.4 fL (36.4-46.3); White Blood Count 4.88 K/uL (4.8-10.8)
[2021-08-10] MEDS ORDERED: LEVOTHYROXINE SODIUM 50 MCG TABLET PO SCH (06:30)
[2021-08-10 06:53] LABS: BUN Creatinine Ratio 16.6 (10-20); Calcium 8.4 mg/dl (8.5-10.1); Creatinine Clr Calc Pharmacy 50.2 ml/min; Est GFR (Non-African American) 48.3 ml/min; Magnesium 1.9 mg/dl (1.8-2.4)
[2021-08-10] MEDS: GLUCOSAMINE SULFATE 500 MG CAP PO SCH (08:23)
[2021-08-10] MEDS: HEPARIN SOD 5,000 UNIT/0.5 ML VIAL SQ SCH (08:24)
[2021-08-10] MEDS ORDERED: ENALAPRIL MALEATE 5 MG TAB PO SCH (09:00)
[2021-08-10] MEDS ORDERED: ASPIRIN 81 MG ECTAB PO SCH (09:00)
[2021-08-10] MEDS: INSULIN ASPART 100 UNITS/ML 3 ML PEN SC SCH ×3 (09:01→17:35)
--- NOTE | 2021-08-10 15:46 | Cardiology Progress Note ---
Date of Service August 10, 2021 Assessment & Plan (1) Syncope: Plan: Absence of any bradycardia or heart block during the prodrome to his most recent syncopal episode strongly weighs against cardiac etiology. His prior very rare transient pauses at night (2 episodes over the past year) are the type commonly noted in patients with loop recorders and are not indicative of the need for pacemaker placement. He does have mild orthostasis on exam, despite receiving IV fluids and eating normally. In the absence of evidence for direct cardiac etiology for syncope, would be suspicious of orthostasis/vasovagal component. Therefore, recommend permissive hypertension by withholding quinapril and tamsulosin and monitoring his out patient blood pressures before considering adding back either agent. (2) Mobitz type 1 second degree AV block: Plan: Seen only on admission ECG, none overnight. His loop recorder battery should last another year and allow for analysis of any progressive conduction disease. (3) Carotid artery stenosis: Plan: Followed by vascular surgery at [facility]. Medically managed, on aspirin and clopidogrel. Not felt to be in an operative range, but could contribute to his syncope if he were to become orthostatic and develop cerebral hypoperfusion, this could be exacerbated by his vertebral stenosis. Plan: Okay for discharge with follow-up by Dr. Bronson. Admission and Anticipated Discharge Date Admission Date: August 09, 2021 Subjective Uneventful night. Patient feels well. No lightheadedness, presyncope, or syncope. No chest pain or dyspnea. Telemetry showed sinus rhythm in the 60-70 bpm range with occasional blocked PAC. No heart block or significant bradycardia. Review of loop recorder showed sinus rhythm at normal rates without bradycardia or heart block for several minutes prior to his reporting of symptoms yesterday morning. Loop recorder did show pauses of 3 and 3.8 seconds in December 2020 and 08/03/2021 respectively, however both of these occurred during the night while sleeping and were asymptomatic. Physical Exam Physical Exam: No distress. Afebrile. BP by MD 136/70 mmHg seated, 124/64 mmHg upon standing (no symptoms). Skin: no ecchymoses or generalized lesions. HEENT: 2 cm left occipital scalp hematoma, otherwise unremarkable. Neck: Jugular venous pulse appears normal, no obvious carotid bruits. Lungs: clear. Cardiac: regular rhythm with occasional missed beat, 2/6 apical holosystolic murmur rating to the axilla, no diastolic murmur or gallop. Abdomen: benign. Extremities: no edema, pulses intact. Neurologic: normal affect, nonfocal. Results & Data ([facility]) Vital Signs (Past 12 Hours) Vital Signs Temp Pulse Pulse Resp BP Pulse Ox 08/10/21 15:22 69 08/10/21 11:20 98.4 F 65 18 159/71 H 99 08/10/21 07:24 97.7 F 59 L 18 175/81 H 98 08/10/21 07:15 57 L Laboratory Results Hemoglobin 11.8 with normal white count. Normal electrolytes, BUN 23, creatinine 1.38. PG Care Time/CCT Total # of Minutes Spent Total Time Spent with Patient: Total time spent is greater than 50% in coordination of care (as documented) at patient's floor/unit and/or counseling patient: Coding Level of Care Code 14907 Subseq Hosp Care Lvl 3 Diagnoses Syncope R55 Mobitz type 1 second degree AV block I44.1 Carotid artery stenosis I65.29
--- NOTE | 2021-08-10 16:44 | Discharge Summary ---
Date of Service August 10, 2021 Admission HPI Per Admitting Provider 81 YOM with past medical history: COPD, DM II (on Trulicity), HTN, Hypothyroidism, CKD III, TIA, Carotid artery stenosis, HLD. Patient comes in to the EMD today following a syncopal episode this morning following getting out of bed. The patient normally has some orthostasis which he can identify that he needs to wait to stand up or he sits down and waits until it resolves. He feels today's episode came on suddenly and denies any light headedness, tunnel vision or vision changes, flashing lights, salivating or warm/flush feeling. He states that he was aware that he was falling and fell on a carpeted floor. He then got up and walked out to the kitchen to tell his he fell. She reports that he was not pale in color or sweating. The patient does follow up with Dr. Leung for his prolonged history of dizziness - he has a loop recorder in that was reviewed in June that did not show any significant cardiac events. In the EMD the patient had routine labs drawn and an ECG performed. His ECG was questionably Mobitz II. His telemetry was reviewed which shows varying VT intervals followed by 2-3 closer beats and then back to his varying VT underlying rate, with an occasional junctional beat noted. His HR has remained in the 60-70 range during HPI and no notable Hypotension. Patient has had recent imaging done of his carotid arteries and was to follow up with his vascular surgeon this week to discuss results. These results were interpreted as 50-69% stenosis of the NEGIN and less than 50% of the LICA (reports placed on soft chart). Patient will be admitted for telemetry monitoring and cardiology consult for electrophysiology following. Patient has received his COVID vaccine and his COVID test on admission is: Principal Diagnosis Pre-syncope, Orthostasis Discharge Exam Constitutional WD/WN, vitals as above Eyes + anicteric sclerae Neck trachea midline, no thyromegaly Respiratory normal respiratory effort, lungs clear to auscultation Cardiovascular RRR, no murmur, no edema Chest (Breasts) Chest: normal inspection of chest Gastrointestinal (Abdomen) normal bowel sounds, soft, nontender, no hepatosplenomegaly Musculoskeletal Extremities: extremities normal to inspection; no cyanosis and no clubbing Skin no rashes, warm and dry Neurologic moves all extremities and awake; no focal motor deficits Psychiatric A+Ox3, euthymic affect Lymphatic no lymphedema Discharge Data Allergies Allergy/AdvReac Type Severity Reaction Status Date / Time oxycodone Allergy Severe Hallucinati Verified 08/09/21 11:49 ng Penicillins Allergy Intermediate RASH Verified 08/09/21 11:49 Sulfa (Sulfonamide Allergy Intermediate RASH Verified 08/09/21 11:49 Antibiotics) gluten Allergy Mild GI SYMPTOMS Verified 08/09/21 11:49 lactose Allergy Mild GI SYMPTOMS Verified 08/09/21 11:49 tramadol Allergy Mild HALLUCINATI Verified 08/09/21 11:49 ONS Uvllamz-Vvh-Suf Reductase AdvReac Intermediate MUSCLE Verified 08/09/21 11:49 Inhibitor WEAKNESS, BRAIN FOG Consultations 08/09/21 12:47 ED Decision to Admit Stat 08/09/21 18:17 Consult Cardiology Routine Ordered Studies 08/09/21 10:21 CT head/brain wo con Stat Hospital Course (1) Abnormal ECG: Patient with known first degree AV block with and briefly witnessed Mobitz 1 type 2 block here on admission Had a fall after passing out or almost passing out - QTC 464 - Troponin negative and no other cardiac complaints - Patient admitted for telemetry monitoring and symptom evaluation loop recorder interrogated and only event was on night of 08/03 with 3.8 sec pause while sleeping, nothing around time of this event that led to admission -seemed orthostatic in nature as per Cardiology Plan for permissive HTN and dc quinapril, tamsulosin, monitor BP at home after discharge - Cardiology consulted- appreciate assistance (2) Syncope: Syncope with collapse-as above, possible LOC - CT head negative for acute changes - ECHO in 2019 with normal EF 60-65%- trace MR, normal Aortic valve- no wall motion abnormalities -likely orthostatic as above (3) History of loop recorder: as above (4) Diabetes: On Trulicity at home- takes every Saturday - Place on sliding scale here for >180 (5) Hypertension: dc quinapril, continue asa, continue plavix continue pravastatin (6) S/P knee replacement: chronic no acute needs (7) Spinal stenosis of lumbar region: as above restart glucosamine at discharge (8) Hypothyroidism: TSH normal- continue Levothyroxine 50 mcg daily (9) CKD (chronic kidney disease): CKD III - 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 - Follow avoid nephrotoxic medications as able dc quinapril as above (10) Carotid artery stenosis: History of TIA(2001) as well, continue statin, ASA and Plavix - most recent imaging from [facility] attached to soft chart - as per HPI Chronic headaches-has upcoming appt with Neuro Dispo-stable for dc to home and close f/u with PCP and Cardiology as outpt Total Time Total Time Spent Total Time Spent (In Minutes): 35 min Discharge Plan Discharge Items Patient Disposition: Home - Self-Care Reason For Visit: FALL-BUMP ON HEAD,LIGHT HEADED EPISODES Discharge Diagnosis: Pre-Syncope Condition on Discharge: Good Activity: Resume your previous activity Non-emergency contact: Primary Care Provider and It Programmer Call non-emergency contact if: you have any medication questions and your symptoms worsen Follow-up/Referrals: Sam Leung MD [Physician] - (Please follow up within 2 weeks.) Pro,Dick Waldron MD [Primary Care Provider] - (Follow up within 1-2 weeks.) Diet: Carb Consistent or DM2 and Heart Healthy Addtl Attending Provider Instructions: You were admitted after having an episode of lightheadedness and a fall. This is likely due to orthostasis (relative drop in blood pressure with change in position). Your tamsulosin and quinapril were both discontinued to keep this from happening again. You did not have any significant abnormalities of your heart rhythm noted here on telemetry monitoring or on interrogation of your loop recorder. Please keep track of your blood pressures at home and follow up with your PCP within 1-2 weeks. Please also follow up with Dr. Leung within 2 weeks. Pending Studies at Discharge: No Stand-Alone Forms: My [facility] Medications and DC Order Prescriptions: Continued finasteride [Proscar] 5 mg tablet 5 mg PO HS Qty: 90 RF: 3 clopidogrel [Plavix] 75 mg tablet 75 mg PO PM Qty: 90 RF: 3 pravastatin 10 mg tablet 20 mg PO 2XWK RF: 0 Trulicity 1.5 mg/0.5 mL pen injector 1.5 mg subcut WK Qty: 2 RF: 3 glimepiride 4 mg tablet 4 mg PO QPM Qty: 90 RF: 3 aspirin 81 mg Tablet,Delayed Release (Dr/Ec) 81 mg PO QAM RF: 0 clindamycin HCl 300 mg capsule 600 mg PO DIRECTED PRN (Reason: pretreat dental appt) RF: 0 levothyroxine [Synthroid] 50 mcg tablet 50 mcg PO QAM RF: 0 glucosamine sanchez 2KCl-chondroit [Glucosamine-Chondroitin 3X Str] 750-600 mg Tablet 2 tab PO BID RF: 0 cholecalciferol (vitamin D3) [Vitamin D3] 2,000 unit Capsule 2,000 unit PO BID RF: 0 Hold Instructions: not taking coenzyme Q10 [CoQ-10] 100 mg Capsule 100 mg PO DAILY RF: 0 Neuriva Original 100-100 mg Capsule 1 cap PO QAM RF: 0 Discontinued quinapril 5 mg tablet 5 mg PO DAILY Qty: 30 RF: 5 tamsulosin [Flomax] 0.4 mg capsule 0.4 mg PO HS RF: 0 Discharge Orders: Discharge Order (Routine); Ordered 08/10/21 Ordered By: Nidhi Anderson Admission Data Admit Date/Time: 08/09/21 15:04 Attending Provider: Nidhi Anderson Admit Provider: Bar Hamilton Primary Care Provider: Dick Adams Other Providers: Bar Hamilton ; Ludin Brownlee Coding Level of Care Code 64923 OBS Care - Discharge Diagnoses Abnormal ECG R94.31 Syncope R55 History of loop recorder Z98.890 Diabetes E11.9 Hypertension I10 S/P knee replacement Z96.659 Spinal stenosis of lumbar region M48.061 Hypothyroidism E03.9 CKD (chronic kidney disease) N18.9 Carotid artery stenosis I65.29
[2021-08-10] MEDS ORDERED: PRAVASTATIN SOD 20 MG TAB PO SCH (21:00)
== END 2021-08-10 17:54 | disposition home or self-care (01) | DRG 312 ==
LOC: ED 09:57 → SUATTDRO 15:04 → EDINP 15:04 → 2S 18:11

== ENCOUNTER 2022-03-11 18:51 | Inpatient (IN) ==
--- NOTE | 2022-03-11 19:03 | Emergency Department Note ---
Impression & Plan Leukocytosis, Headache, Acute dehydration, Elevated troponin ED Provider Note NAME: LIZZETH RAPP AGE: 81 SEX: M : 1940 ARRIVES VIA: Walk-In INFORMANT: Patient, ED PROVIDER(S): Glen Stock MD Chief Complaint: Headache, nausea HPI: Patient presents with concern for headache and associated nausea. The patient states that he was trying to have a bowel movement and subsequently developed shakiness and associated headache that is in the top of the head and sometimes radiating to the back. The patient describes it as achy. Patient does have some associated left-sided chest discomfort but this is nonradiating. Patient denies any shortness of breath. The patient does have some mild abdominal discomfort and associated nausea but without vomiting. The patient was able to have a bowel movement. The patient denies any vomiting or diarrhea. The patient denies any blood in the stool. Patient denies any obvious dysuria or hematuria. The patient also had some associated gait imbalance and felt it was difficult to walk in a straight line. The patient does have a history of vertigo but states that this feels somewhat similar. Patient did not take anything for symptoms at home prior to arrival and his symptoms have been constant and unremitting. No exacerbating factors. The patient denies any recent falls or trauma. Patient denies any ear pain or tenderness. No recent changes in elevations or water activities. ROS: See HPI for pertinent positives and negatives. A total of 10 systems were reviewed and otherwise negative. Past medical history: See below Surgical history: See below Social history: See below Physical Exam: GENERAL: NAD, wearing glasses, wearing a mask, non-toxic. EYE EXAM: Normal conjunctiva. PERRL, no anisocoria and EOM's grossly intact w/o pain. Mild nystagmus when looking to the left. NECK: Supple, no nuchal rigidity, no adenopathy, non-tender. No signs of meningismus. LUNGS: Clear to auscultation. Normal chest wall mechanics. HEART: Tachycardic and regular, no MRG. ABDOMEN: Abdomen soft, mild upper abdominal discomfort without lower abdominal pain. Normo-active bowel sounds, no masses, no rebound or guarding. BACK: No CVA TTP. SKIN: No rashes and no bruising. UPPER EXTREMITIES: Upper extremities are grossly normal. LOWER EXTREMITIES: Grossly normal, no edema. NEURO EXAM: A&O x3, cranial nerves II-XII grossly intact, normal speech, moves all 4 extremities on command w/o issue. Good [id number]. No obvious drift. Differential diagnoses: Migraine headache, meningitis, sinusitis, CO exposure, ICH, SAH, infection, tumor, headache, sinus thrombosis, arterial dissection, as well as other pathologies. Course: Patient was seen and evaluated the bedside. Full history physical exam was performed. EKG interpreted by me Sinus tachycardia with first-degree AV block, prolonged IN, wide QRS, left anterior fascicular block. No obvious ST elevations. Imaging Studies: See Below Cardiac monitoring: An order was placed for continuous cardiac monitoring. The monitor shows a rate of 98 with sinus rhythm. MDM: Patient was seen due to concern for headache after straining to have a bowel movement. CT angiography of the head and neck are ordered. The patient has had mild chest discomfort but no shortness of breath. CT abdomen pelvis ordered given the patient had nausea and associated abdominal discomfort. Blood work sh owed a leukocytosis of 16 with a normal H&H and platelet count. The patient's kidney function with creatinine 1.4. The patient's high-sensitivity troponin is elevated at 64. Patient's EKG does not show any obvious acute changes. LFTs and lipase otherwise grossly unremarkable. Patient's chest x-ray is negative acute. CT head negative. CT angiography of the head does not show any concerning findings. See CT angiography of the neck does show mild stenosis. CT abdomen pelvis shows perirectal fat and edema with wall thickening involving the lower rectum which may be consistent with a proctitis. There is no bowel perforation or abscess. No obvious diverticulitis. Renal cyst noted. Patient did not give any urine but given the patient's white counts the patient's shakes may have been secondary to rigors. The patient was ordered additional IV fluids procalcitonin blood culture and cefepime. I did speak to the patient family member and convey the findings and my concerns. I also did speak with the on- call hospitalist Dr. Parish and the patient was admitted to the medicine [facility] . Of note the patient did have improvement in his gait and balance during his time in the department. Urinalysis was pending at the time of admission. Patient has no EKG changes or shortness of breath believe PE to be less likely. The patient has no leg swelling. No calf pain. Past Med/Surg History Medical History Arthritis Carotid artery stenosis Chronic obstructive pulmonary disease no inhalers currently "MILD" Diabetes mellitus, type 2 GERD (gastroesophageal reflux disease) History of asthma History of prostate cancer treated with radiation. no surgery. Hypercholesteremia Hypertension WAS ON BP MEDS>FELT DIZZY/SYNCOPAL EPISODES Hypothyroidism Pancreatic tumor ?TUMOR/CYST> FOUND ON EXAM (GETS ULTRASOUNDS/MRI OR CT SCANS YEARLY TO MONITOR) Spinal stenosis of lumbar region Stage III chronic kidney disease Syncope ~2-3 years ago -- has a loop recorder in place TIA (transient ischemic attack) (~2001) CONT. LEFT SIDE WEAKNEES WITH TOE DROP OCCAS.>2001 *REASON FOR PLAVIX Surgical History H/O colonoscopy with polypectomy H/O hernia repair as a toddler History of cataract surgery LEFT History of esophagogastroduodenoscopy (EGD) History of knee replacement RT History of loop recorder in place currently. follows with Dr. Leung. History of tonsillectomy and adenoidectomy Hx of cholecystectomy S/P lumbar laminectomy [place] teeth removed Family History Brother Colon cancer Prostate cancer Grandfather Rectal cancer Unknown Heart disease Cancer Hypertension Mother Diabetes Congestive heart failure Grandmother (Paternal) Stroke Grandfather (Maternal) Myocardial infarction Other No family history of adverse response to anesthesia Denies family history of Ovarian cancer Breast cancer Social History Smoking Status: Never smoker Tobacco Type: Pipe Second Hand Exposure: Yes; Hx Alcohol Use: No Preferred Language: Taiwanese Communication Ability: Effective Visual Impairment: No Limitations Hearing Ability: Use of Hearing Aid Stock [employer] Required: No Beliefs That Will Affect Care: None marital status: Current Living Situation: Spouse current occupational status: retired How many Children do You have: 3 Feels Safe at Home: Yes Childhood Exposure to Second-Hand Smoke: Yes Dental Care, Regularly: Yes Physical Activity Frequency: Daily Seatbelt Use: always Sunscreen Use: Yes Assistive Devices: None Allergies Allergies Allergy/AdvReac Type Severity Reaction Status Date / Time oxycodone Allergy Intermediate Hallucinati Verified 03/11/22 20:03 ng tramadol Allergy Intermediate HALLUCINATI Verified 03/11/22 20:03 ONS gluten Allergy Mild GI SYMPTOMS Verified 03/11/22 20:03 lactose Allergy Mild GI SYMPTOMS Verified 03/11/22 20:03 Penicillins Allergy Mild RASH Verified 03/11/22 20:03 Sulfa (Sulfonamide Allergy Mild RASH Verified 03/11/22 20:03 Antibiotics) Lgefgcu-LTF-BeO Reductase AdvReac Intermediate MUSCLE Verified 03/11/22 20:03 Inhibitor WEAKNESS, [Yueeoil-Jdt-Aks Reductase BRAIN FOG Inhibitor] Home Meds Home Medications Medication Instructions Recorded Confirmed cholecalciferol (vitamin D3) 50 2,000 unit PO BID 07/13/19 03/11/22 mcg (2,000 unit) capsule (Vitamin D3) aspirin 81 mg tablet,delayed 81 mg PO QAM 10/08/20 03/11/22 release glucosamine sulf dipotassium Cl 1 tab PO BID 10/08/20 03/11/22 750 mg-chondroitin sulf 600 mg tablet (Glucosamine-Chondroitin 3X Triple Strength) coenzyme Q10 100 mg capsule 100 mg PO QAM 06/19/21 03/11/22 (CoQ-10) elderberry fruit [Elderberry] 1 tab PO DAILY 02/22/22 03/11/22 folic acid 400 mcg tablet 0.4 mg PO DAILY 02/22/22 03/11/22 zinc 50 mg tablet 50 mg PO DAILY 02/22/22 03/11/22 sfkoxx-osfsof-V.ginseng, herbs 1 cap PO DAILY 03/11/22 03/11/22 capsule Previous Rx's Medication Instructions Recorded glimepiride 4 mg tablet 4 mg PO QPM #90 tab 07/19/21 clindamycin HCl 300 mg capsule 600 mg PO DIRECTED PRN #10 cap 08/25/21 brimonidine 0.2 % eye drops 1 drp OPHTHALMIC (EYE) BID #15 ml 11/23/21 pravastatin 10 mg tablet 20 mg PO 2XWK #45 tab 12/04/21 blood sugar diagnostic (FreeStyle #300 ea 12/12/21 Lite Strips) dulaglutide 1.5 mg/0.5 mL 1.5 mg SUBCUT WK #2 ml 12/12/21 subcutaneous pen injector (Trulicity) lancets 28 gauge (FreeStyle #300 ea 12/12/21 Lancets) levothyroxine 50 mcg tablet 50 mcg PO QAM #90 tab 12/12/21 (Synthroid) finasteride 5 mg tablet (Proscar) 5 mg PO HS #90 tab 12/26/21 pantoprazole 40 mg tablet,delayed 40 mg PO QAM #90 tab 01/12/22 release clopidogrel 75 mg tablet (Plavix) 75 mg PO PM #90 tab 02/13/22 fludrocortisone 0.1 mg tablet 0.1 mg PO DAILY #30 tab 02/22/22 Results & Data (ED) Vital Signs Vital Signs - 24 hr 03/11/22 18:57 03/11/22 20:14 03/11/22 21:00 Temperature 37.2 C Temperature Source Temporal Artery Scan Pulse Rate 110 H 106 H 106 H Pulse Rhythm Regular Pulse Strength Normal Respiratory Rate 20 16 21 Respiratory Effort / Characteristics Non-Labored Respiratory Depth Normal Respiratory Pattern Regular Blood Pressure 180/92 H 151/89 H 134/81 Blood Pressure Mean 121 109 98 Blood Pressure Position Sitting Pulse Oximetry 98 97 95 Oxygen Delivery Method Room Air Room Air Room Air Sepsis Recent Fever Within 48 Hours No Sepsis New/Unexplained Change in Mental Status N/A Sepsis Action Taken by Nursing No Action Required 03/11/22 21:38 03/11/22 22:06 Temperature Temperature Source Pulse Rate 99 H 104 H Pulse Rhythm Pulse Strength Respiratory Rate 19 22 Respiratory Effort / Characteristics Respiratory Depth Respiratory Pattern Blood Pressure 140/79 148/90 H Blood Pressure Mean 99 109 Blood Pressure Position Pulse Oximetry 97 96 Oxygen Delivery Method Room Air Room Air Sepsis Recent Fever Within 48 Hours Sepsis New/Unexplained Change in Mental Status Sepsis Action Taken by Usp Medications Current Medication List: was personally reviewed by me Laboratory Data Attestation: I reviewed the patient's lab results. Result diagrams: 03/11/22 19:16 03/11/22 20:14 Lab Results 03/11/22 03/11/22 03/11/22 Range/Units 19:16 19:16 19:16 WBC 16.33 H (4.8-10.8) K/uL RBC 4.55 L (4.7-6.1) M/uL Hgb 14.5 (14.0-18.0) g/dL Hct 42.3 (42-52) % MCV 93.0 (80-100) fL MCH 31.9 (25-34) pg MCHC 34.3 (32-36) g/dL RDW Std Deviation 49.2 H (36.4-46.3) fL RDW Coeff of Vinny 14.5 (11.5-14.5) % Plt Count 148 (130-400) K/uL MPV 10.1 (7.4-10.4) fL Immature Gran % (Auto) 0.6 % Neut % (Auto) 83.6 % Lymph % (Auto) 4.8 % [place] % (Auto) 10.8 % Eos % (Auto) 0.1 % Baso % (Auto) 0.1 % Neut # (Auto) 13.66 H (1.4-6.5) K/uL Lymph # (Auto) 0.79 L (1.2-3.4) K/uL [place] # (Auto) 1.76 H (0.11-0.59) K/uL Eos # (Auto) 0.01 (0-0.5) K/uL Baso # (Auto) 0.01 (0-0.2) K/uL Immature Gran # (Auto) 0.10 H (0.00-0.02) K/uL PT 10.6 (9.0-12.0) Seconds INR 1.0 (0.9-1.1) APTT 20.5 L (21.0-31.0) Seconds PTT Ratio 0.7 Sodium 137 (136-145) mmol/L Potassium (3.5-5.1) mmol/L Chloride 102 (98-107) mmol/L Carbon Dioxide 25 (21-32) mmol/L Anion Gap 10 (3-11) BUN 26 H (6-23) mg/dl Creatinine 1.41 H (0.6-1.4) mg/dl Est Cr Clr Drug Dosing Not Reportable Est GFR ( Amer) 54.5 ml/min Est GFR (Non-Af Amer) 47.0 ml/min BUN/Creatinine Ratio 18.4 (10-20) Glucose 140 H (70-99(Fasting)) mg/dl Calcium 9.3 (8.5-10.1) mg/dl Total Bilirubin 0.8 (0.2-1.0) mg/dl AST (13-39) U/L ALT 17 (7-52) U/L Alkaline Phosphatase 80 (34-104) U/L Troponin I High Sens 64.8 H* (0-20) pg/ml Total Protein 7.1 (6.0-8.3) gm/dl Albumin 4.3 (3.4-5.0) gm/dl Globulin 2.8 (2.5-4.0) gm/dl Albumin/Globulin Ratio 1.5 (0.9-2) Lipase (11-82) U/L 03/11/22 03/11/22 Range/Units 20:14 20:14 WBC (4.8-10.8) K/uL RBC (4.7-6.1) M/uL Hgb (14.0-18.0) g/dL Hct (42-52) % MCV (80-100) fL MCH (25-34) pg MCHC (32-36) g/dL RDW Std Deviation (36.4-46.3) fL RDW Coeff of Vinny (11.5-14.5) % Plt Count (130-400) K/uL MPV (7.4-10.4) fL Immature Gran % (Auto) % Neut % (Auto) % Lymph % (Auto) % [place] % (Auto) % Eos % (Auto) % Baso % (Auto) % Neut # (Auto) (1.4-6.5) K/uL Lymph # (Auto) (1.2-3.4) K/uL [place] # (Auto) (0.11-0.59) K/uL Eos # (Auto) (0-0.5) K/uL Baso # (Auto) (0-0.2) K/uL Immature Gran # (Auto) (0.00-0.02) K/uL PT (9.0-12.0) Seconds INR (0.9-1.1) APTT (21.0-31.0) Seconds PTT Ratio Sodium (136-145) mmol/L Potassium 3.8 (3.5-5.1) mmol/L Chloride (98-107) mmol/L Carbon Dioxide (21-32) mmol/L Anion Gap (3-11) BUN (6-23) mg/dl Creatinine (0.6-1.4) mg/dl Est Cr Clr Drug Dosing Est GFR ( Amer) ml/min Est GFR (Non-Af Amer) ml/min BUN/Creatinine Ratio (10-20) Glucose (70-99(Fasting)) mg/dl Calcium (8.5-10.1) mg/dl Total Bilirubin (0.2-1.0) mg/dl AST 15 (13-39) U/L ALT (7-52) U/L Alkaline Phosphatase (34-104) U/L Troponin I High Sens (0-20) pg/ml Total Protein (6.0-8.3) gm/dl Albumin (3.4-5.0) gm/dl Globulin (2.5-4.0) gm/dl Albumin/Globulin Ratio (0.9-2) Lipase 17 (11-82) U/L Administered Medications Discontinued Medications Sodium Chloride (Nss 1000ml) 1,000 mls @ 999 mls/hr IV .[id number] JERMAINE Stop: 03/11/22 20:30 Last Infusion: 03/11/22 20:39 Dose: 0 mls/hr Documented by: [id number] Admin: 03/11/22 19:38 Dose: 999 mls/hr Documented by: [id number] Magnesium Sulfate/Dextrose (Magnesium Sulfate / D5w) 1 gm in 100 mls @ 100 mls/hr IV NOW ONE Stop: 03/11/22 20:18 Last Infusion: 03/11/22 20:39 Dose: 0 mls/hr Documented by: [id number] Admin: 03/11/22 19:39 Dose: 100 mls/hr Documented by: [id number] Sodium Chloride (Nss 1000ml) 500 mls @ 999 mls/hr IV .Q31M ONE Stop: 03/11/22 23:17 Last Admin: 03/11/22 23:05 Dose: 999 mls/hr Documented by: [id number] Ioversol (Optiray 320 125ml) 120 ml IV ONCE ONE Stop: 03/11/22 21:32 Last Admin: 03/11/22 21:31 Dose: 120 ml Documented by: [id number] Ondansetron HCl (Ondansetron Inj 2 Mg/Ml 2 Ml Vial) 4 mg IV NOW STA Stop: 03/11/22 19:20 Last Admin: 03/11/22 19:38 Dose: 4 mg Documented by: [id number] Imaging Data Radiologist's Impression: Chest X-Ray 03/11/22 19:21 XR chest 1V portable CLINICAL HISTORY: Chest discomfort. COMPARISON STUDY: Chest radiograph July 13, 2019. FINDINGS: Lung volumes are normal. Lungs are clear. There is no pneumothorax or pleural effusion. Cardiac size is normal. Mediastinal contours are normal. There is no evidence for pulmonary edema. Electronic device projects over the heart. IMPRESSION: No acute cardiopulmonary findings. ACT 112: Negative or not required by law. Electronically signed by: Santi Faustin M.D. 03/11/2022 7:36 PM Discharge Plan Visit Data Chief Complaint: Nausea Stated Complaint: SHAKINESS, NAUSEA, HEADACHE ED Provider: Glen Stock Discharge Problem: Leukocytosis, Headache, Acute dehydration, Elevated troponin Patient Disposition: Admitted As Inpatient Forms Stand Alone Forms: [facility] Prescriptions Prescriptions: No Action clindamycin HCl 300 mg capsule 600 mg PO DIRECTED PRN (Reason: pretreat dental appt) Qty: 10 RF: 0 pravastatin 10 mg tablet 20 mg PO 2XWK Qty: 45 RF: 3 (DME) FreeStyle Lite Strips Strip See Rx Instructions .Route Qty: 300 RF: 0 Trulicity 1.5 mg/0.5 mL pen injector 1.5 mg subcut WK Qty: 2 RF: 5 (DME) lancets [FreeStyle Lancets] 28 gauge misc See Rx Instructions .Route Qty: 300 RF: 3 levothyroxine [Synthroid] 50 mcg tablet 50 mcg PO QAM Qty: 90 RF: 1 finasteride [Proscar] 5 mg tablet 5 mg PO HS Qty: 90 RF: 3 pantoprazole 40 mg tablet,delayed release (DR/EC) 40 mg PO QAM Qty: 90 RF: 3 clopidogrel [Plavix] 75 mg tablet 75 mg PO PM Qty: 90 RF: 3 brimonidine 0.2 % drops 1 drp ophthalmic (eye) BID Qty: 15 RF: 2 folic acid 400 mcg tablet 0.4 mg PO DAILY RF: 0 zinc 50 mg tablet 50 mg PO DAILY RF: 0 elderberry fruit [Elderberry] 1 tab PO DAILY RF: 0 fludrocortisone 0.1 mg tablet 0.1 mg PO DAILY Qty: 30 RF: 11 glimepiride 4 mg tablet 4 mg PO QPM Qty: 90 RF: 3 aspirin 81 mg Tablet,Delayed Release (Dr/Ec) 81 mg PO QAM RF: 0 glucosamine sanchez 2KCl-chondroit [Glucosamine-Chondroitin 3X Str] 750-600 mg Tablet 1 tab PO BID RF: 0 cholecalciferol (vitamin D3) [Vitamin D3] 2,000 unit Capsule 2,000 unit PO BID RF: 0 Hold Instructions: not taking coenzyme Q10 [CoQ-10] 100 mg Capsule 100 mg PO QAM RF: 0 Neuro-Plus Capsule 1 cap PO DAILY RF: 0 Referrals Referrals: Dick Adams MD [Primary Care Provider] -
[2022-03-11] MEDS ORDERED: ONDANSETRON INJ 2 MG/ML 2 ML VIAL IV STA (19:19)
[2022-03-11] MEDS ORDERED: MAGNESIUM SULFATE / D5W 1 GM/100 ML BAG IV ONE (19:19)
[2022-03-11] MEDS ORDERED: SODIUM CHLORIDE 0.9% 1000ML 1,000 ML IV SCH (19:30)
--- NOTE | 2022-03-11 19:37 | XRay Report ---
XR chest 1V portable CLINICAL HISTORY: Chest discomfort. COMPARISON STUDY: Chest radiograph July 13, 2019. FINDINGS: Lung volumes are normal. Lungs are clear. There is no pneumothorax or pleural effusion. Car diac size is normal. Mediastinal contours are normal. There is no evidence for pulmonary edema. Elect ronic device projects over the heart. IMPRESSION: No acute cardiopulmonary findings. ACT 112: Negative or not required by law. Electronically signed by: Santi Faustin M.D. 03/11/2022 7:36 PM
[2022-03-11 19:46] LABS: Basophils # (auto) 0.01 K/uL (0-0.2); Basophils % (auto) 0.1 %; Eosinophils # (auto) 0.01 K/uL (0-0.5); Eosinophils % (auto) 0.1 %; Hematocrit (blood only) 42.3 % (42-52); Hemoglobin 14.5 g/dL (14.0-18.0); Immature Granulocytes % (auto) 0.6 %; Lymphocytes # (auto) 0.79 K/uL (1.2-3.4); Lymphocytes % (auto) 4.8 %; Mean Corpuscular Hemoglobin 31.9 pg (25-34); Mean Corpuscular Hgb Conc 34.3 g/dL (32-36); Mean Platelet Volume 10.1 fL (7.4-10.4); Monocytes # (auto) 1.76 K/uL (0.11-0.59); Monocytes % (auto) 10.8 %; Neutrophils # (auto) 13.66 K/uL (1.4-6.5); Neutrophils % (auto) 83.6 %; Platelet Count 148 K/uL (130-400); RDW Coefficient of Variation 14.5 % (11.5-14.5); RDW Standard Deviation 49.2 fL (36.4-46.3); Red Blood Count 4.55 M/uL (4.7-6.1); White Blood Count 16.33 K/uL (4.8-10.8)
[2022-03-11 20:03] LABS: Partial Thromboplastin Ratio 0.7; Partial Thromboplastin Time 20.5 Seconds (21.0-31.0); Prothrombin Time 10.6 Seconds (9.0-12.0)
[2022-03-11 20:09] LABS: Alanine Aminotransferase 17 U/L (7-52); Albumin Globulin Ratio 1.5 (0.9-2); Albumin Level 4.3 gm/dl (3.4-5.0); Alkaline Phosphatase 80 U/L (34-104); Anion Gap 10 (3-11); BUN Creatinine Ratio 18.4 (10-20); Bilirubin,Total 0.8 mg/dl (0.2-1.0); Blood Urea Nitrogen 26 mg/dl (6-23); Calcium 9.3 mg/dl (8.5-10.1); Carbon Dioxide 25 mmol/L (21-32); Chloride 102 mmol/L (98-107); Est GFR (African American) 54.5 ml/min; Globulin 2.8 gm/dl (2.5-4.0); Glucose 140 mg/dl (70-99(Fasting)); Sodium 137 mmol/L (136-145); Total Protein 7.1 gm/dl (6.0-8.3); Troponin I High Sensitivity 64.8 pg/ml (0-20)
[2022-03-11 20:55] LABS: Potassium 3.8 mmol/L (3.5-5.1)
[2022-03-11] MEDS ORDERED: OPTIRAY 320 125ml IV ONE (21:31)
[2022-03-11] MEDS ORDERED: SODIUM CHLORIDE 0.9% 1000ML 500 ML IV ONE (22:47)
[2022-03-11] MEDS ORDERED: SODIUM CHLORIDE 0.9% 500 ML IV ONE (23:23)
[2022-03-11] MEDS ORDERED: CEFEPIME 2,000 MG/20 ML VIAL IV STA (23:23)
--- NOTE | 2022-03-12 00:19 | History & Physical Report ---
Date of Service March 12, 2022 Assessment & Plan (1) Elevated troponin: Plan: Mild elevation of troponin associate with brief episode of chest pain. He does have a new right bundle on EKG Telemetry monitoring Repeat troponin Consider 2D echo (2) Rigors: Plan: Patient reports uncontrolled shaking possibly consistent with rigors. Denies fever. He does have leukocytosis with WBC = 16.33 with elevated neutrophil to lymphocyte ratio. He is tachycardic on arrival. Possibly early infection. Follow cultures blood and urine Empiric Zosyn (3) Gait instability: Plan: Patient reports gait instability in the ER while trying to walk to the bathroom. CT, CTA head and neck were performed in the ER which show heavy vascular calcification, 60% stenosis of the proximal right internal carotid artery. PT/OT evaluation Fall precautions (4) Diabetes: Plan: Chronic. Fairly well-controlled with A1c = 7.1 on 11/23/2021 Check hemoglobin A1c with a.m. labs Insulin sliding scale (5) Acid reflux: Plan: Chronic. Stable on medications Continue Protonix 40 mg p.o. every morning (6) CKD (chronic kidney disease): Plan: BUN and creatinine near baseline Avoid nephrotoxic agents Continue to monitor (7) Dyslipidemia: Plan: Chronic. On medications. Continue pravastatin (8) Hypothyroidism: Plan: Chronic. Check TSH with a.m. labs Continue Synthroid (9) Orthostatic hypotension: Plan: Chronic. Continue Florinef History of Present Illness Chief Complaint: Rigors Primary Care Provider: Dick Adams MD Sam Castillo is a 81-year-old male with multiple medical problems to include diabetes, hypertension, hyperlipidemia, COPD, GERD, asthma, hypothyroidism, prostate cancer. Patient developed acute onset of rigors, weakness and fatigue this evening at 1800. He was sitting on his deck when he began to shake uncontrollably. He came into the home and checked his blood sugar which was 129. His checked his blood pressure which was "okay". He also had a brief episode of substernal chest tightness this evening which started in the ER and lasted approximately 20 minutes. Otherwise, he denies fevers/chills/visual changes. He has a chronic headache but denies changes in frequency or severity. No chest pain at present. No palpitations/cough/shortness of breath. No abdominal pain/nausea/vomiting/diarrhea/constipation. He has a history of intermittent dizziness and presyncope but denies any of these symptoms at present. Patient has had rigors in the past after receiving his second Pfizer COVID 19 shot. He reports pain in his spine yesterday from his lumbar to his cervical which has since resolved. No trauma or falls. No numbness/tingling/weakness. Patient told ER provider that he had shakiness while having a bowel movement. He did not provide this history to me. He also states that the chest discomfort that he experienced was only in the hospital and did not occur at home. He also denied abdominal pain and nausea to me. He reports some gait imbalance and felt that it was difficult to walk in a straight line. CT head, CTA head and neck for stroke rule out obtained to the ER. Results below Allergies Allergy/AdvReac Type Severity Reaction Status Date / Time oxycodone Allergy Intermediate Hallucinati Verified 03/11/22 20:03 ng tramadol Allergy Intermediate HALLUCINATI Verified 03/11/22 20:03 ONS gluten Allergy Mild GI SYMPTOMS Verified 03/11/22 20:03 lactose Allergy Mild GI SYMPTOMS Verified 03/11/22 20:03 Penicillins Allergy Mild RASH Verified 03/11/22 20:03 Sulfa (Sulfonamide Allergy Mild RASH Verified 03/11/22 20:03 Antibiotics) Edvjndy-IRN-CzX Reductase AdvReac Intermediate MUSCLE Verified 03/11/22 20:03 Inhibitor WEAKNESS, [Gweqmwv-Npo-Mah Reductase BRAIN FOG Inhibitor] Home Medications Medication Instructions Recorded Confirmed Type cholecalciferol (vitamin D3) 50 2,000 unit PO BID 07/13/19 03/11/22 History mcg (2,000 unit) capsule (Vitamin D3) aspirin 81 mg tablet,delayed 81 mg PO QAM 10/08/20 03/11/22 History release glucosamine sulf dipotassium Cl 1 tab PO BID 10/08/20 03/11/22 History 750 mg-chondroitin sulf 600 mg tablet (Glucosamine-Chondroitin 3X Triple Strength) coenzyme Q10 100 mg capsule 100 mg PO QAM 06/19/21 03/11/22 History (CoQ-10) glimepiride 4 mg tablet 4 mg PO QPM #90 tab 07/19/21 03/11/22 Rx clindamycin HCl 300 mg capsule 600 mg PO DIRECTED PRN #10 cap 08/25/21 03/11/22 Rx brimonidine 0.2 % eye drops 1 drp OPHTHALMIC (EYE) BID #15 ml 11/23/21 03/11/22 Rx pravastatin 10 mg tablet 20 mg PO 2XWK #45 tab 12/04/21 03/11/22 Rx blood sugar diagnostic (FreeStyle #300 ea 12/12/21 03/08/22 Rx Lite Strips) dulaglutide 1.5 mg/0.5 mL 1.5 mg SUBCUT WK #2 ml 12/12/21 03/11/22 Rx subcutaneous pen injector (Trulicity) lancets 28 gauge (FreeStyle #300 ea 12/12/21 03/08/22 Rx Lancets) levothyroxine 50 mcg tablet 50 mcg PO QAM #90 tab 12/12/21 03/11/22 Rx (Synthroid) finasteride 5 mg tablet (Proscar) 5 mg PO HS #90 tab 12/26/21 03/11/22 Rx pantoprazole 40 mg tablet,delayed 40 mg PO QAM #90 tab 01/12/22 03/11/22 Rx release clopidogrel 75 mg tablet (Plavix) 75 mg PO PM #90 tab 02/13/22 03/11/22 Rx elderberry fruit [Elderberry] 1 tab PO DAILY 02/22/22 03/11/22 History fludrocortisone 0.1 mg tablet 0.1 mg PO DAILY #30 tab 02/22/22 03/11/22 Rx folic acid 400 mcg tablet 0.4 mg PO DAILY 02/22/22 03/11/22 History zinc 50 mg tablet 50 mg PO DAILY 02/22/22 03/11/22 History unvcjm-ijzzdx-Y.ginseng, herbs 1 cap PO DAILY 03/11/22 03/11/22 History capsule Past Med/Surg History Medical History Arthritis Carotid artery stenosis Chronic obstructive pulmonary disease no inhalers currently "MILD" Diabetes mellitus, type 2 GERD (gastroesophageal reflux disease) History of asthma History of prostate cancer treated with radiation. no surgery. Hypercholesteremia Hypertension WAS ON BP MEDS>FELT DIZZY/SYNCOPAL EPISODES Hypothyroidism Pancreatic tumor ?TUMOR/CYST> FOUND ON EXAM (GETS ULTRASOUNDS/MRI OR CT SCANS YEARLY TO MONITOR) Spinal stenosis of lumbar region Stage III chronic kidney disease Syncope ~2-3 years ago -- has a loop recorder in place TIA (transient ischemic attack) (~2001) CONT. LEFT SIDE WEAKNEES WITH TOE DROP OCCAS.>2001 *REASON FOR PLAVIX Surgical History H/O colonoscopy with polypectomy H/O hernia repair as a toddler History of cataract surgery LEFT History of esophagogastroduodenoscopy (EGD) History of knee replacement RT History of loop recorder in place currently. follows with Dr. Leung. History of tonsillectomy and adenoidectomy Hx of cholecystectomy S/P lumbar laminectomy [place] teeth removed Family History Brother Colon cancer Prostate cancer Grandfather Rectal cancer Unknown Heart disease Cancer Hypertension Mother Diabetes Congestive heart failure Grandmother (Paternal) Stroke Grandfather (Maternal) Myocardial infarction Other No family history of adverse response to anesthesia Denies family history of Ovarian cancer Breast cancer Social History Smoking Status: Former smoker Tobacco Type: Pipe Second Hand Exposure: Yes; Hx Alcohol Use: No Hx Substance Use: No Preferred Language: Portuguese Communication Ability: Effective Visual Impairment: No Limitations Hearing Ability: Use of Hearing Aid Slitter And Cutter Operator Required: No Beliefs That Will Affect Care: None marital status: Current Living Situation: Spouse current occupational status: retired How many Children do You have: 3 Other Information That Helps Us Care for You: No Feels Safe at Home: Yes Safety Concerns: Feels Safe At This Time Childhood Exposure to Second-Hand Smoke: Yes Dental Care, Regularly: Yes Physical Activity Frequency: Daily Seatbelt Use: always Sunscreen Use: Yes Assistive Devices: Glasses Review of Systems Review of Systems: All systems reviewed & are unremarkable except as noted in HPI & below Physical Exam Physical Exam: General: patient resting comfortably, NAD, non-toxic in appearance, AA&O x 4 Skin: warm, dry, intact, no rashes or lesions. No joint swelling or tenderness. HEENT: NC/AT, PERRL, EOMI, anicteric sclera, conjunctiva without injection, external ear normal to inspection and nontender, nares patent, moist mucus membr anes, dentition intact, no oropharyngeal lesions, neck supple, trachea midline, no LAD, no thyromegaly, no JVD Heart: +S1/S2, regular, no m/r/g. Loop recorder in place Lungs: equal air entry bilaterally, no rales/rhonchi/wheezes Abd: +BS, soft, NT/ND, no masses/organomegaly/ascites No CVA tenderness. No pain/tenderness with palpation and percussion of the spine Ext: warm, 2+ pulses in UE/LE bilaterally, no clubbing/cyanosis or edema Neuro: nonfocal, patient AA&O x 4, speech intact, no facial droop, moving all extremities on command with equal strength 5/5 Results & Data Results & Data ([facility]) Vital Signs (Past 12 Hours) Vital Signs Temp Pulse Resp BP Pulse Ox 03/12/22 00:00 90 15 125/76 96 03/11/22 23:00 109 H 18 121/78 95 03/11/22 22:06 104 H 22 148/90 H 96 03/11/22 21:38 99 H 19 140/79 97 03/11/22 21:00 106 H 21 134/81 95 03/11/22 20:14 106 H 16 151/89 H 97 03/11/22 18:57 37.2 C 110 H 20 180/92 H 98 Laboratory Results Laboratory Results WBC 16.33 K/uL (4.8-10.8) H 03/11/22 19:16 RBC 4.55 M/uL (4.7-6.1) L 03/11/22 19:16 Hgb 14.5 g/dL (14.0-18.0) 03/11/22 19:16 Hct 42.3 % (42-52) 03/11/22 19:16 MCV 93.0 fL (80-100) 03/11/22 19:16 MCH 31.9 pg (25-34) 03/11/22 19:16 MCHC 34.3 g/dL (32-36) 03/11/22 19:16 RDW Std Deviation 49.2 fL (36.4-46.3) H 03/11/22 19:16 RDW Coeff of Vinny 14.5 % (11.5-14.5) 03/11/22 19:16 Plt Count 148 K/uL (130-400) 03/11/22 19:16 MPV 10.1 fL (7.4-10.4) 03/11/22 19:16 Immature Gran % (Auto) 0.6 % 03/11/22 19:16 Neut % (Auto) 83.6 % 03/11/22 19:16 Lymph % (Auto) 4.8 % 03/11/22 19:16 Woods % (Auto) 10.8 % 03/11/22 19:16 Eos % (Auto) 0.1 % 03/11/22 19:16 Baso % (Auto) 0.1 % 03/11/22 19:16 Neut # (Auto) 13.66 K/uL (1.4-6.5) H 03/11/22 19:16 Lymph # (Auto) 0.79 K/uL (1.2-3.4) L 03/11/22 19:16 Woods # (Auto) 1.76 K/uL (0.11-0.59) H 03/11/22 19:16 Eos # (Auto) 0.01 K/uL (0-0.5) 03/11/22 19:16 Baso # (Auto) 0.01 K/uL (0-0.2) 03/11/22 19:16 Immature Gran # (Auto) 0.10 K/uL (0.00-0.02) H 03/11/22 19:16 PT 10.6 Seconds (9.0-12.0) 03/11/22 19:16 INR 1.0 (0.9-1.1) 03/11/22 19:16 APTT 20.5 Seconds (21.0-31.0) L 03/11/22 19:16 PTT Ratio 0.7 03/11/22 19:16 Sodium 137 mmol/L (136-145) 03/11/22 19:16 Potassium 3.8 mmol/L (3.5-5.1) 03/11/22 20:14 Chloride 102 mmol/L (98-107) 03/11/22 19:16 Carbon Dioxide 25 mmol/L (21-32) 03/11/22 19:16 Anion Gap 10 (3-11) 03/11/22 19:16 BUN 26 mg/dl (6-23) H 03/11/22 19:16 Creatinine 1.41 mg/dl (0.6-1.4) H 03/11/22 19:16 Est Cr Clr Drug Dosing Not Reportable 03/11/22 19:16 Est GFR ( Amer) 54.5 ml/min 03/11/22 19:16 Est GFR (Non-Af Amer) 47.0 ml/min 03/11/22 19:16 BUN/Creatinine Ratio 18.4 (10-20) 03/11/22 19:16 Glucose 140 mg/dl (70-99(Fasting)) H 03/11/22 19:16 POC Glucose 143 mg/dl (70-99) H 03/12/22 01:29 Calcium 9.3 mg/dl (8.5-10.1) 03/11/22 19:16 Total Bilirubin 0.8 mg/dl (0.2-1.0) 03/11/22 19:16 AST 15 U/L (13-39) 03/11/22 20:14 ALT 17 U/L (7-52) 03/11/22 19:16 Alkaline Phosphatase 80 U/L (34-104) 03/11/22 19:16 Troponin I High Sens 64.8 pg/ml (0-20) H* 03/11/22 19:16 Total Protein 7.1 gm/dl (6.0-8.3) 03/11/22 19:16 Albumin 4.3 gm/dl (3.4-5.0) 03/11/22 19:16 Globulin 2.8 gm/dl (2.5-4.0) 03/11/22 19:16 Albumin/Globulin Ratio 1.5 (0.9-2) 03/11/22 19:16 Lipase 17 U/L (11-82) 03/11/22 20:14 Procalcitonin < 0.05 ng/ml (0-0.5) 03/11/22 19:16 Urine Color Yellow 03/12/22 00:44 Urine Appearance Clear (Clear) 03/12/22 00:44 Urine pH 5.0 (4.5-7.5) 03/12/22 00:44 Ur Specific [place] > 1.045 (1.000-1.030) H 03/12/22 00:44 Urine Protein Negative (Negative) 03/12/22 00:44 Urine Glucose (UA) Negative (Negative) 03/12/22 00:44 Urine Ketones Negative (Negative) 03/12/22 00:44 Urine Blood 2+ (Negative) H 03/12/22 00:44 Urine Nitrite Negative (Negative) 03/12/22 00:44 Urine Bilirubin Negative (Negative) 03/12/22 00:44 Urine Urobilinogen Negative (Negative) 03/12/22 00:44 Ur Leukocyte Esterase Negative (Negative) 03/12/22 00:44 Urine WBC (Auto) 5-10 /hpf (0-5) H 03/12/22 00:44 Urine RBC (Auto) 10-30 /hpf (0-4) H 03/12/22 00:44 U Hyaline Cast (Auto) 0 /lpf (0-5) 03/12/22 00:44 U Epithel Cells (Auto) 5-10 /lpf (0-5) H 03/12/22 00:44 Urine Bacteria (Auto) 2+ (Negative) H 03/12/22 00:44 SARS-CoV-2, RNA, NAAT NEGATIVE (NEGATIVE) 03/11/22 23:57 Impressions Chest X-Ray 03/11/22 19:21 XR chest 1V portable CLINICAL HISTORY: Chest discomfort. COMPARISON STUDY: Chest radiograph July 13, 2019. FINDINGS: Lung volumes are normal. Lungs are clear. There is no pneumothorax or pleural effusion. Cardiac size is normal. Mediastinal contours are normal. There is no evidence for pulmonary edema. Electronic device projects over the heart. IMPRESSION: No acute cardiopulmonary findings. ACT 112: Negative or not required by law. Electronically signed by: Santi Faustin M.D. 03/11/2022 7:[address] head: Per stat readno ICH, mass-effect or edema. No evidence of acute cortical stroke. Visualized sinuses and mastoid air cells are clear. CTA neck: Per stat radthe thoracic aorta. There is no aneurysm or dissection. The great vessel origins are widely patent. Heavily calcified plaques in the right carotid bulb causing 60% stenosis of the proximal right internal carotid artery. Mild calcified plaques in the left carotid bulbs causing 20% stenosis of the proximal left internal carotid artery. The left vertebral artery is small focal stenosis or dissection is seen involving the vertebral arteries. Mild to moderate multilevel degenerative changes throughout the cervical spine. No cervical fracture or subluxation. CTA head: Per stat readmild calcified plaque throughout the cavernous portions of the distal internal carotid arteries bilaterally proximal 20% stenosis. The distal left vertebral artery is small but patent. The right vertebral and basilar arteries are unremarkable. The anterior, middle and posterior cerebral arteries are within normal limits. No aneurysms, vascular malformations or arterial thrombus is identified CT abdomen and pelvis with contrast: Per stat radcomparison to September 06, 2020. There is mild diffuse edema in the perirectal fat within the lower pelvis. There is wall thickening involving the mid to lower rectum suggesting proctitis. No bowel perforation or abscess is identified. Bowel loops are nondilated. There is moderate diverticulosis of the sigmoid colon without signs of acute diverticulitis. The remaining bowel loops appear unremarkable. Previous cholecystectomy. The liver, gallbladder, spleen, pancreas and adrenal glands are unremarkable. There are multiple bilateral simple renal cysts in both kidneys measuring up to 4.9 cm in diameter. No follow-up is necessary. No hydronephrosis or ureterolithiasis. Abdominal aorta is heavily calcified but not dilated. Moderate degenerative changes in the lumbar spine and lumbosacral junction. No acute fracture or subluxation is seen and ECG Additional Comments: EKG was sinus tachycardia at 106 bpm, first-degree AV block with KS = 240, QRS = 132, QTc = 470. Right bundle branch block present which is new from prior study on 09 August 2021. Also with left anterior fascicular block Code Status & VTE Plan VTE Prophylaxis Plan VTE Prophylaxis will be ordered: Yes PG Care Time/CCT Total # of Minutes Spent Total Time Spent with Patient: Total time spent is greater than 50% in coordination of care (as documented) at patient's floor/unit and/or counseling patient: Coding Level of Care Code 77973 Initial Inpt Care Lvl 3 Diagnoses Elevated troponin R77.8 Diabetes E11.9 Acid reflux K21.9 CKD (chronic kidney disease) N18.9 Dyslipidemia E78.5 Hypothyroidism E03.9 Rigors R68.89 Gait instability R26.81 Orthostatic hypotension I95.1
[2022-03-12 01:17] LABS: Appearance Urine Clear (Clear); Bacteria Urine Automated 2+ (Negative); Bilirubin Urine Negative (Negative); Blood Urine 2+ (Negative); Cast Urine Automated 0 /lpf (0-5); Color Urine Yellow; Glucose Urine UA Negative (Negative); Ketones Urine Negative (Negative); Leukocyte Esterase Urine Negative (Negative); Nitrite Urine Negative (Negative); Protein Urine Negative (Negative); Specific Gravity Urine > 1.045 (1.000-1.030); Urobilinogen Urine Negative (Negative)
[2022-03-12] MEDS ORDERED: ACETAMINOPHEN 325 MG TAB PO PRN (01:25)
[2022-03-12] MEDS ORDERED: POLYETHYLENE (MIRALAX) 17 GM PACK PO PRN (01:25)
[2022-03-12] MEDS ORDERED: CARBOHYDRATES FOR HYPOGLYCEMIA PO PRN (01:25)
[2022-03-12] MEDS ORDERED: DEXTROSE 50% 50 ML SYRINGE IV PRN (01:25)
[2022-03-12] MEDS ORDERED: GLUCAGON FOR INJ 1 MG VIAL SQ PRN (01:25)
[2022-03-12] MEDS ORDERED: DOCUSATE SODIUM 100 MG CAP PO PRN (01:25)
[2022-03-12] MEDS ORDERED: ONDANSETRON INJ 2 MG/ML 2 ML VIAL IV PRN (01:25)
[2022-03-12] MEDS ORDERED: GLUCOSE 40% GEL 15 GM TUBE PO PRN (01:25)
[2022-03-12] MEDS ORDERED: PIPERACILL/TAZOBAC CONSULT ACTIVE PRN (01:25)
[2022-03-12] MEDS ORDERED: NON-FORMULARY MEDICATION (Dulaglutide [Trulicity] 1.5 mg/0.5 mL pen injector) SQ SCH (01:25)
[2022-03-12] MEDS ORDERED: GLUCOSE 10 TABS/TUBE PO PRN (01:25)
[2022-03-12] MEDS ORDERED: PATIENT'S HEIGHT AND/OR WEIGHT NEEDED SCH (01:45)
[2022-03-12] MEDS ORDERED: PIPERACILLIN/TAZOBACTAM 3.375 GM in DEXTROSE 5% 100 ML IV ONE (02:00)
[2022-03-12 03:05] LABS: Magnesium 1.9 mg/dl (1.7-2.4); Phosphorus 2.5 mg/dl (2.5-4.9)
[2022-03-12] MEDS ORDERED: Heparin IV Adult Wt-Based Standard WITH Bolus Protocol IV SCH (04:05)
[2022-03-12] MEDS ORDERED: HEPARIN SOD (PORCINE) 1000 UNIT/ML IV ONE (04:15)
[2022-03-12] MEDS: HEPARIN SODIUM/DEXTROSE 25,000 UNITS/500 ML BAG IV SCH (04:26)
[2022-03-12] MEDS ORDERED: Nursing to Pharmacy Communication SCH (06:00)
[2022-03-12] MEDS: LEVOTHYROXINE SODIUM 50 MCG TABLET PO SCH (06:08)
--- NOTE | 2022-03-12 07:16 | CT Scan Report ---
CT head/brain wo con CLINICAL HISTORY: Headache COMPARISON STUDY: 08/09/2021 CT DOSE: TECHNIQUE: Standard CT of the Brain was performed without IV contrast. A dose lowering technique was utilized adhering to the principles of ALARA. FINDINGS: Extraaxial space: There is no evidence for subdural hematoma. There are no extra-axial fluid collecti ons. Ventricles and cisterns: The ventricles are mildly dilated bilaterally. There is no evidence for midl ine shift or mass effect. Parenchyma: There is no subarachnoid or intraparenchymal hemorrhage. There is no evidence for an acut e infarct or cerebral edema. There is mild cerebral cortical atrophy and decreased attenuation in the periventricular white matter representing remote small vessel disease. There are no gross mass lesio ns. Osseous structures: There is no evidence for an acute fracture. The visualized paranasal sinuses are clear. The mastoid air cells are clear bilaterally. Soft tissues: There is no evidence for focal soft tissue swelling. IMPRESSION: 1. No acute intracerebral pathology. 2. Cerebral cortical atrophy and remote small vessel disease are again seen. ACT 112: Negative or not required by law. Electronically signed by: Gianfranco Mendoza M.D. 03/12/2022 7:15 AM
--- NOTE | 2022-03-12 07:29 | CT Scan Report ---
CT abd pelvis IV con only CLINICAL HISTORY: ab pain; nausea COMPARISON STUDY: 09/06/2020 CT DOSE: TECHNIQUE: Standard CT of the Abdomen and Pelvis was performed with IV contrast. A dose lowering michele hnique was utilized adhering to the principles of ALARA. Contrast Volume: Optiray 320, 120 ml. The patient did not receive oral contrast. FINDINGS: Lung base: The lung bases are clear. Extensive coronary artery calcification and mitral annular calci fication again seen. Abdominal cavity: There is no evidence for abdominal mass, adenopathy or ascites. There is a small le ft inguinal hernia containing peritoneal fat. No bowel loop herniation is seen. Liver: There is homogeneous attenuation of the liver parenchyma. There is no evidence for enhancing m ass lesion. Spleen: There is homogeneous attenuation of the splenic parenchyma. There is no enhancing mass lesion . Pancreas: There is homogeneous attenuation of the pancreatic parenchyma. There is no evidence for mas s lesion or peripancreatic fluid collection. Small stable 7 mm cyst is again seen within the body of the pancreas and continues to be unchanged dating back to 2013. Gall Bladder: Surgical clips are present. Adrenal glands: The adrenal glands are normal in size and attenuation. There is no evidence for enhan cing mass lesion. Kidneys: There is homogeneous attenuation of the renal parenchyma bilaterally. There is no evidence f or renal calculus or hydronephrosis. There is no evidence for enhancing mass. Numerous bilateral nacho ply defined simple cysts are again seen. No further follow-up is necessary for these benign findings. Bowel: There is a small hiatal hernia. The bowel loops are normally placed within the abdomen and pel vis without evidence for dilatation or obstruction. There is mucosal thickening now seen involving th e distal rectosigmoid colon with pericolonic colonic inflammatory changes seen. The findings suggest proctitis. However, underlying mass lesion cannot be excluded based on this study. Direct visualizati on is recommended. There is minimal sigmoid diverticulosis without evidence for diverticulitis. There are no inflammatory changes present. There is no evidence for free air. There is a normal appendix i n the right lower quadrant. Bladder: The bladder is distended with no evidence for focal mass, calculus or diverticulum. There is mild diffuse thickening of the bladder wall characteristic of chronic bladder outlet obstruction. : There is no evidence for pelvic mass or adenopathy. There is no evidence for pelvic ascites. The prostate is enlarged. Vasculature: There is no evidence for aneurysmal dilatation of the abdominal aorta. Atherosclerotic c alcification is present. Osseous structures: There is no acute osseous pathology. Degenerative changes are seen involving the spine and SI joints particularly on the left. IMPRESSION: 1. Interval development of mucosal thickening involving the rectosigmoid colon with pericolonic infla mmatory changes. While the findings suggest the possibility of proctitis, underlying neoplasm cannot be excluded. Direct visualization is recommended. 2. Diverticulosis without evidence for diverticulitis. 3. Small hiatal hernia. 4. Additional nonacute findings are delineated above. ACT 112: Negative or not required by law. Electronically signed by: Gianfranco Mendoza M.D. 03/12/2022 7:28 AM
[2022-03-12] MEDS ORDERED: BRIMONIDINE TART 0.2% OP SOLN PER DROP CHARGE OP SCH (08:00)
--- NOTE | 2022-03-12 08:38 | CT Scan Report ---
CT angio neck with con, CT angio head w con CLINICAL HISTORY: gait imablance, CHAPPELL after straining TECHNIQUE: CT angiography of the head and neck was performed following intravenous administration of iodinated contrast. Coronal and sagittal MIPS were obtained from the axial data set and were submitte d for review. Automated dose lowering techniques and/or adjustment according to patient size were ut ilized for this examination. All measurements were calculated based on NASCET criteria. CT DOSE: 2333.13 mGy.cm Comparison: Comparison is made to CT head 03/11/2014 FINDINGS: Biapical scarring is seen. CTA Neck: Incidental note is made of direct origin of the left vertebral artery from the aortic arch . Atherosclerotic plaque is present in the aortic arch and at the origin of the great vessels. The c ommon carotid, external carotid, cervical segments of the internal carotid arteries, and the cervical segments of the vertebral arteries are patent without hemodynamically significant stenosis. The righ t vertebral artery is dominant. CTA Head: The anterior and posterior cerebral circulations are patent. No hemodynamically significan t stenosis, aneurysm, dissection, or arteriovenous malformation is shown. Atherosclerotic disease is noted. IMPRESSION: 1. No occlusion, hemodynamically significant stenosis, aneurysm, dissection, or arteriovenous malfor mation in the major intracranial arteries. 2. No occlusion, hemodynamically significant stenosis, or dissection in the major cervical arteries. Assessment of stenosis of the internal carotid arteries is based on NASCET criteria. ACT 112: Negative or not required by law. Electronically signed by: Bryon Wilsno M.D. 03/12/2022 8:37 AM
[2022-03-12] MEDS: FLUDROCORTISONE ACETATE 0.1 MG TAB PO SCH (08:45)
[2022-03-12] MEDS: FOLIC ACID 400 MCG TAB PO SCH (08:45)
[2022-03-12] MEDS: PANTOprazole 40 MG TAB PO SCH (08:46)
[2022-03-12] MEDS: ASPIRIN 81 MG ECTAB PO SCH (08:46)
[2022-03-12] MEDS: INSULIN GLARGINE SOLOSTAR 100 UNITS/ML 3 ML PEN SC SCH ×2 (08:46→20:25)
[2022-03-12] MEDS: bisacodyL 10 MG SUPP PR SCH (08:47)
[2022-03-12] MEDS: INSULIN ASPART PER UNIT SC SCH ×4 (08:49→20:27)
[2022-03-12] MEDS: PIPERACILLIN/TAZOBACTAM 3.375 GM in DEXTROSE 5% 100 ML IV SCH ×2 (08:56→17:58)
[2022-03-12] MEDS ORDERED: ENOXAPARIN INJ 40 MG/0.4 ML SYR SQ SCH (09:00)
[2022-03-12 09:36] LABS: Estimated Average Glucose 171 mg/dl; Hemoglobin A1C 7.6 % (4.5-5.6)
[2022-03-12] MEDS: BRIMONIDINE TARTRATE 0.2% 5ML OP SCH ×2 (10:30→17:52)
[2022-03-12 10:59] LABS: iSTAT Creatinine 1.3 mg/dl (0.6-1.3); iSTAT Hemoglobin 12.6 g/dl (14.0-18.0); iSTAT Ionized Calcium 1.13 mmol/l (1.12-1.32); iSTAT Potassium 3.8 mmol/L (3.3-5.0)
--- NOTE | 2022-03-12 11:17 | XCELERA ---
[id number]
[2022-03-12 12:20] LABS: Partial Thromboplastin Ratio > 5.1
[2022-03-12 12:30] LABS: Partial Thromboplastin Time > 139.0 Seconds (21.0-31.0)
--- NOTE | 2022-03-12 14:06 | Cardiology Consultation ---
Date of Consultation March 12, 2022 Assessment & Plan (1) Elevated troponin: -concerning for non ST elevation PA. -new anteroapical wall motion abnormality identified. -agree with intravenous heparin. -continue aspirin and Plavix. -consider low-dose beta blockade. -delay cardiac catheterization as we await blood cultures for presumed sepsis. (2) Abnormal echocardiogram: -new moderate left ventricular dysfunction. -anteroapical wall motion abnormality identified. -management as above. (3) Hypertension: -adequate control on current regimen. (4) Hypercholesteremia: -consider changing pravastatin to either atorvastatin or rosuvastatin. History of Present Illness Attending Physician: Rakan Mireles MD History of Present Illness Mr. Castillo is a 81-year-old male admitted yesterday with presumed sepsis. This consultation was ordered as the patient has an elevated high sensitivity troponin I level along with a new wall motion abnormality on his echocardiogram. Of note, patient is typically followed by Dr. Leung in the outpatient setting. The patient was in his usual state of health until late yesterday afternoon when he had the q.d. onset of rigors, weakness, and fatigue. He presented to the emergency room for further care. While in the emergency room, he had a 20 minutes episode of substernal chest tightness. There were no other associated symptoms such as shortness of breath, nausea, vomiting, diaphoresis, or radiation of the discomfort. High sensitivity troponin drawn in the emergency room was elevated 64.8. Follow-up value went up to 413. The patient was placed on intravenous heparin. The patient had an echocardiogram performed this morning which noted moderate left ventricular dysfunction with ejection fraction of 35%. There was an akinetic distal anterior wall and entire apex. I contacted Dr. Mireles with the results and he asked me to see the patient in consultation. The patient has never experienced chest discomfort as described prior to this presentation. He has never had a cardiac catheterization. The patient does have an implantable loop recorder to investigate possible etiologies of recurrent syncope. Currently, patient is resting comfortably in bed without complaints. Past medical and surgical history 1. Hypertension 2. Hypercholesterolemia 3. TIA-2001 4. Cerebrovascular disease-60% right, 20% left internal carotid stenoses, February 2022 5. Diabetes 6. COPD 7. GERD 8. Hypothyroidism 9. Chronic renal failure 10. Pancreatic tumor/cyst 11. Spinal stenosis 12. Colonic polyps 13. History of prostate carcinoma 14. Left intra-ocular lens implants 15. Right TKR 16. Tonsillectomy 17. Cholecystectomy 18. Inguinal hernia repair 19. Lumbar laminectomy 20. Loop recorder Social history and lives with his No tobacco alcohol Family history Noncontributory Review of systems A 10 review systems was undertaken and negative except for that described above. Allergies Allergy/AdvReac Type Severity Reaction Status Date / Time oxycodone Allergy Intermediate Hallucinati Verified 03/11/22 20:03 ng tramadol Allergy Intermediate HALLUCINATI Verified 03/11/22 20:03 ONS gluten Allergy Mild GI SYMPTOMS Verified 03/11/22 20:03 lactose Allergy Mild GI SYMPTOMS Verified 03/11/22 20:03 Penicillins Allergy Mild RASH Verified 03/11/22 20:03 Sulfa (Sulfonamide Allergy Mild RASH Verified 03/11/22 20:03 Antibiotics) Tdayosy-OCG-VzY Reductase AdvReac Intermediate MUSCLE Verified 03/11/22 20:03 Inhibitor WEAKNESS, [Pujreky-Vfo-Utr Reductase BRAIN FOG Inhibitor] Home Medications Medication Instructions Recorded Confirmed Type cholecalciferol (vitamin D3) 50 2,000 unit PO BID 07/13/19 03/11/22 History mcg (2,000 unit) capsule (Vitamin D3) aspirin 81 mg tablet,delayed 81 mg PO QAM 10/08/20 03/11/22 History release glucosamine sulf dipotassium Cl 1 tab PO BID 10/08/20 03/11/22 History 750 mg-chondroitin sulf 600 mg tablet (Glucosamine-Chondroitin 3X Triple Strength) coenzyme Q10 100 mg capsule 100 mg PO QAM 06/19/21 03/11/22 History (CoQ-10) glimepiride 4 mg tablet 4 mg PO QPM #90 tab 07/19/21 03/11/22 Rx clindamycin HCl 300 mg capsule 600 mg PO DIRECTED PRN #10 cap 08/25/21 03/11/22 Rx brimonidine 0.2 % eye drops 1 drp OPHTHALMIC (EYE) BID #15 ml 11/23/21 03/11/22 Rx pravastatin 10 mg tablet 20 mg PO 2XWK #45 tab 12/04/21 03/11/22 Rx blood sugar diagnostic (FreeStyle #300 ea 12/12/21 03/08/22 Rx Lite Strips) dulaglutide 1.5 mg/0.5 mL 1.5 mg SUBCUT WK #2 ml 12/12/21 03/11/22 Rx subcutaneous pen injector (Trulicity) lancets 28 gauge (FreeStyle #300 ea 12/12/21 03/08/22 Rx Lancets) levothyroxine 50 mcg tablet 50 mcg PO QAM #90 tab 12/12/21 03/11/22 Rx (Synthroid) finasteride 5 mg tablet (Proscar) 5 mg PO HS #90 tab 12/26/21 03/11/22 Rx pantoprazole 40 mg tablet,delayed 40 mg PO QAM #90 tab 01/12/22 03/11/22 Rx release clopidogrel 75 mg tablet (Plavix) 75 mg PO PM #90 tab 02/13/22 03/11/22 Rx elderberry fruit [Elderberry] 1 tab PO DAILY 02/22/22 03/11/22 History fludrocortisone 0.1 mg tablet 0.1 mg PO DAILY #30 tab 02/22/22 03/11/22 Rx folic acid 400 mcg tablet 0.4 mg PO DAILY 02/22/22 03/11/22 History zinc 50 mg tablet 50 mg PO DAILY 02/22/22 03/11/22 History somftn-jwdpii-Q.ginseng, herbs 1 cap PO DAILY 03/11/22 03/11/22 History capsule Patient History Medical History Arthritis Carotid artery stenosis Chronic obstructive pulmonary disease no inhalers currently "MILD" Diabetes mellitus, type 2 GERD (gastroesophageal reflux disease) History of asthma History of prostate cancer treated with radiation. no surgery. Hypercholesteremia Hypertension WAS ON BP MEDS>FELT DIZZY/SYNCOPAL EPISODES Hypothyroidism Pancreatic tumor ?TUMOR/CYST> FOUND ON EXAM (GETS ULTRASOUNDS/MRI OR CT SCANS YEARLY TO MONITOR) Spinal stenosis of lumbar region Stage III chronic kidney disease Syncope ~2-3 years ago -- has a loop recorder in place TIA (transient ischemic attack) (~2001) CONT. LEFT SIDE WEAKNEES WITH TOE DROP OCCAS.>2001 *REASON FOR PLAVIX Surgical History H/O colonoscopy with polypectomy H/O hernia repair as a toddler History of cataract surgery LEFT History of esophagogastroduodenoscopy (EGD) History of knee replacement RT History of loop recorder in place currently. follows with Dr. Leung. History of tonsillectomy and adenoidectomy Hx of cholecystectomy S/P lumbar laminectomy [place] teeth removed Family History Brother Colon cancer Prostate cancer Grandfather Rectal cancer Unknown Heart disease Cancer Hypertension Mother Diabetes Congestive heart failure Grandmother (Paternal) Stroke Grandfather (Maternal) Myocardial infarction Other No family history of adverse response to anesthesia Denies family history of Ovarian cancer Breast cancer Social History Smoking Status: Former smoker Tobacco Type: Pipe Second Hand Exposure: Yes; Hx Alcohol Use: No Hx Substance Use: No Preferred Language: Albanian Communication Ability: Effective Visual Impairment: No Limitations Hearing Ability: Use of Hearing Aid Traffic Analyst Required: No Beliefs That Will Affect Care: None marital status: Current Living Situation: Spouse current occupational status: retired How many Children do You have: 3 Other Information That Helps Us Care for You: No Feels Safe at Home: Yes Safety Concerns: Feels Safe At This Time Childhood Exposure to Second-Hand Smoke: Yes Dental Care, Regularly: Yes Physical Activity Frequency: Daily Seatbelt Use: always Sunscreen Use: Yes Assistive Devices: Glasses Physical Exam Physical Exam: In general is well-developed well-nourished white male in no acute distress. HEENT exam is negative. Neck is supple with full carotid upstrokes. There are no carotid bruits. Jugular is pressure is flat at 90. There is no thyromegaly. Cardiovascular exam reveals a regular rhythm with a normal S1-S2. Heart sounds are distant. No obvious murmurs. No S3. Lungs are clear without rales, rhonchi, or wheezes. Abdomen is soft without bruits. Extremities reveal intact radial artery pulses bilaterally. There is no peripheral edema. Results & Data ([facility]) Vital Signs (Past 12 Hours) Vital Signs Temp Pulse Resp BP BP Pulse Ox 03/12/22 11:21 36.6 C 84 18 96/60 L 96 03/12/22 07:00 36.8 C 73 20 96/61 L 98 03/12/22 03:23 37.2 C 79 18 100/62 86/42 L 97 Laboratory Results CBC notes hemoglobin 14.5, hematocrit 42.3, white count 16.3, and a platelet count of 148 1000. Electrolytes note a sodium of 139, potassium 3.7, chloride 103, bicarb 25, BUN 26, creatinine 1.47, and glucose of 140. Initial high sensitivity troponin 0.60 4.8 with follow-up values of 413 and 340.1. Diagnostic Findings Echocardiogram notes moderate left ventricular dysfunction with ejection fraction of 35%. There was akinesis of the distal anterior wall and the entire apex. No thrombus. Moderate mitral regurgitation. Compared with the study do ne July 2017, wall motion abnormality is now present. EKG notes sinus rhythm with first-degree AV block, left axis deviation, right bundle branch block, and poor R-wave progression across the anterior precordium. Chest x-ray shows no acute disease. CTA of the neck noted 60% right and 20% left internal carotid artery stenoses. PG Care Time/CCT Total # of Minutes Spent Total Time Spent with Patient: Total time spent is greater than 50% in coordination of care (as documented) at patient's floor/unit and/or counseling patient: Coding Level of Care Code 95383 Initial Inpt Care Lvl 3 Diagnoses Elevated troponin R77.8 Abnormal echocardiogram R93.1 Hypertension I10 Hypercholesteremia E78.00
[2022-03-12 15:01] LABS: Partial Thromboplastin Ratio 3.1
[2022-03-12 15:17] LABS: Partial Thromboplastin Time 85.6 Seconds (21.0-31.0)
--- NOTE | 2022-03-12 15:22 | Electrocardiogram Report ---
Test Reason : Blood Pressure : / mmHG Vent. Rate : 106 BPM Atrial Rate : 106 BPM P-R Int : 240 ms QRS Dur : 132 ms QT Int : 354 ms P-R-T Axes : 000 -69 044 degrees QTc Int : 470 ms Sinus tachycardia with 1st degree A-V block Right bundle branch block Left anterior fascicular block Bifascicular block Abnormal ECG When compared with ECG of 09-AUG-2021 11:57, Sinus rhythm is no longer with 2nd degree A-V block (Mobitz I) Right bundle branch block is now Present Confirmed by Dick Mohan ([id number]) on 03/12/2022 3:22:20 PM Referred By: REFERRED SELF Confirmed By:Dick Mohan
--- NOTE | 2022-03-12 15:28 | Electrocardiogram Report ---
Test Reason : Blood Pressure : / mmHG Vent. Rate : 081 BPM Atrial Rate : 081 BPM P-R Int : 236 ms QRS Dur : 132 ms QT Int : 466 ms P-R-T Axes : 010 -66 -43 degrees QTc Int : 541 ms Sinus rhythm with 1st degree A-V block Right bundle branch block Left anterior fascicular block Bifascicular block T wave abnormality, consider lateral ischemia Abnormal ECG When compared with ECG of 11-MAR-2022 19:35, (unconfirmed) T wave inversion now evident in Inferior leads T wave inversion more evident in Anterolateral leads QT has lengthened Confirmed by Dick Mohan ([id number]) on 03/12/2022 3:27:49 PM Referred By: REFERRED SELF Confirmed By:Dick Mohan
--- NOTE | 2022-03-12 17:31 | Hospitalist Progress Note ---
Date of Service March 12, 2022 Assessment & Plan (1) Elevated troponin: Plan: Mild elevation of troponin associate with brief episode of chest pain. He does have a new right bundle on EKG Telemetry monitoring Troponin is trending down Echocardiogram showed a hypokinetic left ventricular wall movement Discussed with cardiology Patient is a candidate for cardiac cath However given possible sepsis that would be postponed for now (2) Rigors: Plan: Patient reports uncontrolled shaking possibly consistent with rigors. Denies fever. He does have leukocytosis with WBC = 16.33 with elevated neutrophil to lymphocyte ratio. He is tachycardic on arrival. Possibly early infection. Gram-positive cocci are growing in the blood and the urine culture Stop Zosyn Start vancomycin Pharmacy to count (3) Gait instability: Plan: Patient reports gait instability in the ER while trying to walk to the bathroom. CT, CTA head and neck were performed in the ER which show heavy vascular calcification, 60% stenosis of the proximal right internal carotid artery. PT/OT evaluation Fall precautions (4) Diabetes: Plan: Chronic. Fairly well-controlled with A1c = 7.1 on 11/23/2021 Check hemoglobin A1c with a.m. labs Insulin sliding scale (5) Acid reflux: Plan: Chronic. Stable on medications Continue Protonix 40 mg p.o. every morning (6) CKD (chronic kidney disease): Plan: BUN and creatinine near baseline Avoid nephrotoxic agents Continue to monitor (7) Dyslipidemia: Plan: Chronic. On medications. Continue pravastatin (8) Hypothyroidism: Plan: Continue Synthroid (9) Orthostatic hypotension: Plan: Chronic. Continue Florinef Admission and Anticipated Discharge Date Admission Date: March 12, 2022 Subjective The patient is a 81-year-old male with a past medical history significant for hypertension diabetes presented to the hospital with episode of chills leukocytosis fever currently afebrile, however gram-positive cocci is growing in the urine and blood culture Review of Systems Review of Systems: General: No malaise no weakness Neck: No tenderness no pain HEENT: No eye discharge no ear discharge Chest: No chest pain, no palpitation GI: Not distended, no nausea no vomiting Extremities: No edema no tenderness Neurology: No headache no weakness Psychiatric: No depression no anxiety Physical Exam Physical Exam: General: patient resting comfortably, NAD, non-toxic in appearance, AA&O x 4 Skin: warm, dry, intact, no rashes or lesions. No joint swelling or tenderness. HEENT: NC/AT, PERRL, EOMI, anicteric sclera, conjunctiva without injection, external ear normal to inspection and nontender, nares patent, moist mucus membranes, dentition intact, no oropharyngeal lesions, neck supple, trachea midline, no LAD, no thyromegaly, no JVD Heart: +S1/S2, regular, no m/r/g. Loop recorder in place Lungs: equal air entry bilaterally, no rales/rhonchi/wheezes Abd: +BS, soft, NT/ND, no masses/organomegaly/ascites No CVA tenderness. No pain/tenderness with palpation and percussion of the spine Ext: warm, 2+ pulses in UE/LE bilaterally, no clubbing/cyanosis or edema Neuro: nonfocal, patient AA&O x 4, speech intact, no facial droop, moving all extremities on command with equal strength 5/5 Results & Data Results & Data ([facility]) Vital Signs (Past 12 Hours) Vital Signs Temp Pulse Pulse Resp BP Pulse Ox 03/12/22 15:45 36.5 C 93 H 18 109/73 98 03/12/22 15:00 86 03/12/22 11:21 36.6 C 84 18 96/60 L 96 03/12/22 07:00 36.8 C 73 20 96/61 L 98 PG Care Time/CCT Total # of Minutes Spent Total Time Spent with Patient: Total time spent is greater than 50% in coordination of care (as documented) at patient's floor/unit and/or counseling patient: Coding Level of Care Code 71104 Subseq Hosp Care Lvl 3 Diagnoses Elevated troponin R77.8 Rigors R68.89 Gait instability R26.81 Diabetes E11.9 Acid reflux K21.9 CKD (chronic kidney disease) N18.9 Dyslipidemia E78.5 Hypothyroidism E03.9 Orthostatic hypotension I95.1
[2022-03-12] MEDS ORDERED: VANCOMYCIN CONSULT ACTIVE PRN (18:29)
[2022-03-12] MEDS ORDERED: VANCOMYCIN HCL 2,250 MG in SODIUM CHLORIDE 0.9% 500 ML IV SCH (18:45)
--- NOTE | 2022-03-12 20:17 | Pharmacy Report ---
Pharmacy Vanc AUC Short Note - Date of Service March 12, 2022 - Assessment & Plan Assessment 81 year old M receiving Vancomycin for treatment of bacteremia. Pertinent microbiologic data includes: culture growing Day # 1 of antimicrobial therapy Plan Vancomycin * AUC/AFSHIN is the preferred PK/PD target for vancomycin * AUC guided dosing is effective and associated with decreased risk of nephrotoxicity compared to traditional trough targets * Trough level of 14.0 mcg/mL is predicted to achieve target AUC/AFSHIN of 400-600 mg/L.hr and may be associated with a 9 % risk of nephrotoxicity * Trough or random level ordered for: 03/15/22 @ 1930 Pharmacy will continue to follow and will adjust dose/frequency as necessary. Thank you.
[2022-03-12] MEDS: CLOPIDOGREL BISULFATE 75 MG TAB PO SCH (20:23)
[2022-03-12] MEDS: FINASTERIDE 5 MG TAB PO SCH (20:23)
[2022-03-12] MEDS ORDERED: PRAVASTATIN SOD 20 MG TAB PO SCH (21:00)
[2022-03-12 23:29] LABS: Partial Thromboplastin Ratio 2.7
[2022-03-13] MEDS: HEPARIN SODIUM/DEXTROSE 25,000 UNITS/500 ML BAG IV SCH (03:15)
[2022-03-13] MEDS: LEVOTHYROXINE SODIUM 50 MCG TABLET PO SCH (06:10)
[2022-03-13 06:23] LABS: Basophils # (auto) 0.01 K/uL (0-0.2); Basophils % (auto) 0.1 %; Eosinophils # (auto) 0.04 K/uL (0-0.5); Eosinophils % (auto) 0.4 %; Hematocrit (blood only) 34.4 % (42-52); Hemoglobin 11.3 g/dL (14.0-18.0); Immature Granulocytes # (auto) 0.03 K/uL (0.00-0.02); Immature Granulocytes % (auto) 0.3 %; Lymphocytes # (auto) 1.39 K/uL (1.2-3.4); Lymphocytes % (auto) 12.7 %; Mean Corpuscular Hemoglobin 31.2 pg (25-34); Mean Corpuscular Hgb Conc 32.8 g/dL (32-36); Mean Platelet Volume 10.5 fL (7.4-10.4); Monocytes # (auto) 2.68 K/uL (0.11-0.59); Monocytes % (auto) 24.5 %; Platelet Count 119 K/uL (130-400); RDW Coefficient of Variation 14.8 % (11.5-14.5); RDW Standard Deviation 51.5 fL (36.4-46.3); Red Blood Count 3.62 M/uL (4.7-6.1); White Blood Count 10.95 K/uL (4.8-10.8)
[2022-03-13 06:37] LABS: BUN Creatinine Ratio 13.2 (10-20); Calcium 8.2 mg/dl (8.5-10.1); Creatinine Clr Calc Pharmacy 42.2 ml/min; Est GFR (African American) 50.2 ml/min; Est GFR (Non-African American) 43.3 ml/min; Potassium 3.5 mmol/L (3.5-5.1)
[2022-03-13 06:44] LABS: Partial Thromboplastin Ratio 2.6
[2022-03-13 06:47] LABS: Partial Thromboplastin Time 71.3 Seconds (21.0-31.0)
[2022-03-13] MEDS: PANTOprazole 40 MG TAB PO SCH (08:20)
[2022-03-13] MEDS: ASPIRIN 81 MG ECTAB PO SCH (08:20)
[2022-03-13] MEDS: FLUDROCORTISONE ACETATE 0.1 MG TAB PO SCH (08:20)
[2022-03-13] MEDS: FOLIC ACID 400 MCG TAB PO SCH (08:20)
[2022-03-13] MEDS: INSULIN GLARGINE SOLOSTAR 100 UNITS/ML 3 ML PEN SC SCH ×2 (08:21→20:12)
[2022-03-13] MEDS: BRIMONIDINE TARTRATE 0.2% 5ML OP SCH ×2 (08:21→17:06)
[2022-03-13] MEDS: bisacodyL 10 MG SUPP PR SCH (08:21)
[2022-03-13] MEDS: INSULIN ASPART PER UNIT SC SCH ×4 (08:22→20:13)
--- NOTE | 2022-03-13 18:07 | Hospitalist Progress Note ---
Date of Service March 13, 2022 Assessment & Plan (1) Elevated troponin: Plan: Mild elevation of troponin associate with brief episode of chest pain. He does have a new right bundle on EKG Telemetry monitoring Troponin is trending down Echocardiogram showed a hypokinetic left ventricular wall movement Discussed with cardiology Patient is a candidate for cardiac cath Going for cardiac cath tomorrow Discussed with Dr. Mohan NOzp.o. after midnight (2) Rigors: Plan: Patient reports uncontrolled shaking possibly consistent with rigors. Denies fever. He does have leukocytosis with WBC = 16.33 with elevated neutrophil to lymphocyte ratio. He was tachycardic on arrival. -Initially empirically treated for gram-positive cocci bacteremia given the blood culture was positive for gram-positive cocci in both bottles with vancomycin -However vancomycin was discontinued on 03/13 given the PCR for staph aureus was negative -Leukocytosis trending down -Repeat blood culture on 03/13 -CBC tomorrow (3) Gait instability: Plan: Patient reports gait instability in the ER while trying to walk to the bathroom. CT, CTA head and neck were performed in the ER which show heavy vascular calcification, 60% stenosis of the proximal right internal carotid artery. PT/OT evaluation Fall precautions (4) Diabetes: Plan: Chronic. Fairly well-controlled with A1c = 7.1 on 11/23/2021 Check hemoglobin A1c with a.m. labs Insulin sliding scale (5) Acid reflux: Plan: Chronic. Stable on medications Continue Protonix 40 mg p.o. every morning (6) CKD (chronic kidney disease): Plan: BUN and creatinine near baseline Avoid nephrotoxic agents Continue to monitor (7) Dyslipidemia: Plan: Chronic. On medications. Continue pravastatin (8) Hypothyroidism: Plan: Continue Synthroid (9) Orthostatic hypotension: Plan: Chronic. Continue Florinef Admission and Anticipated Discharge Date Admission Date: March 12, 2022 Subjective The patient is a 81-year-old male with a past medical history significant for hypertension diabetes presented to the hospital with episode of chills leukocytosis fever currently afebrile, however gram-positive cocci is growing in the urine and blood culture Review of Systems Review of Systems: General: No malaise no weakness Neck: No tenderness no pain HEENT: No eye discharge no ear discharge Chest: No chest pain, no palpitation GI: Not distended, no nausea no vomiting Extremities: No edema no tenderness Neurology: No headache no weakness Psychiatric: No depression no anxiety Physical Exam Physical Exam: General: patient resting comfortably, NAD, non-toxic in appearance, AA&O x 4 Skin: warm, dry, intact, no rashes or lesions. No joint swelling or tenderness. HEENT: NC/AT, PERRL, EOMI, anicteric sclera, conjunctiva without injection, external ear normal to inspection and nontender, nares patent, moist mucus membranes, dentition intact, no oropharyngeal lesions, neck supple, trachea midline, no LAD, no thyromegaly, no JVD Heart: +S1/S2, regular, no m/r/g. Loop recorder in place Lungs: equal air entry bilaterally, no rales/rhonchi/wheezes Abd: +BS, soft, NT/ND, no masses/organomegaly/ascites No CVA tenderness. No pain/tenderness with palpation and percussion of the spine Ext: warm, 2+ pulses in UE/LE bilaterally, no clubbing/cyanosis or edema Neuro: nonfocal, patient AA&O x 4, speech intact, no facial droop, moving all extremities on command with equal strength 5/5 Results & Data Results & Data ([facility]) Vital Signs (Past 12 Hours) Vital Signs Temp Pulse Pulse Resp BP BP Pulse Ox 03/13/22 15:40 36.5 C 60 19 120/66 98 03/13/22 14:28 65 03/13/22 11:06 36.4 C L 63 19 115/70 97 03/13/22 07:18 36.4 C L 89 19 125/77 91 03/13/22 06:46 36.3 C L 68 18 135/74 97 PG Care Time/CCT Total # of Minutes Spent Total Time Spent with Patient: Total time spent is greater than 50% in coordination of care (as documented) at patient's floor/unit and/or counseling patient: Coding Level of Care Code 70945 Subseq Hosp Care Lvl 3 Diagnoses Elevated troponin R77.8 Rigors R68.89 Gait instability R26.81 Diabetes E11.9 Acid reflux K21.9 CKD (chronic kidney disease) N18.9 Dyslipidemia E78.5 Hypothyroidism E03.9 Orthostatic hypotension I95.1
[2022-03-13] MEDS ORDERED: VANCOMYCIN HCL 1,250 MG in SODIUM CHLORIDE 0.9% 250 ML IV SCH (20:00)
[2022-03-13] MEDS: FINASTERIDE 5 MG TAB PO SCH (20:12)
[2022-03-13] MEDS: CLOPIDOGREL BISULFATE 75 MG TAB PO SCH (20:12)
[2022-03-13 20:50] LABS: Partial Thromboplastin Ratio 1.6; Partial Thromboplastin Time 43.6 Seconds (21.0-31.0)
[2022-03-14] MEDS: HEPARIN SODIUM/DEXTROSE 25,000 UNITS/500 ML BAG IV SCH (01:19)
[2022-03-14 03:52] LABS: Mean Corpuscular Hgb Conc 33.8 g/dL (32-36); Mean Platelet Volume 10.5 fL (7.4-10.4); Platelet Count 131 K/uL (130-400)
[2022-03-14 04:14] LABS: Basophils # (auto) 0.01 K/uL (0-0.2); Basophils % (auto) 0.1 %; Eosinophils # (auto) 0.04 K/uL (0-0.5); Eosinophils % (auto) 0.4 %; Hemoglobin 12.5 g/dL (14.0-18.0); Immature Granulocytes # (auto) 0.04 K/uL (0.00-0.02); Immature Granulocytes % (auto) 0.4 %; Lymphocytes # (auto) 1.36 K/uL (1.2-3.4); Lymphocytes % (auto) 13.8 %; Mean Corpuscular Hemoglobin 32.1 pg (25-34); Mean Corpuscular Volume 94.9 fL (80-100); Monocytes # (auto) 2.31 K/uL (0.11-0.59); Monocytes % (auto) 23.4 %; Neutrophils % (auto) 61.9 %; RBC Morphology Unremarkable; RDW Coefficient of Variation 14.4 % (11.5-14.5); RDW Standard Deviation 49.4 fL (36.4-46.3); White Blood Count 9.86 K/uL (4.8-10.8)
[2022-03-14 04:15] LABS: Partial Thromboplastin Ratio 1.8
[2022-03-14 04:29] LABS: Partial Thromboplastin Time 50.4 Seconds (21.0-31.0)
[2022-03-14] MEDS: LEVOTHYROXINE SODIUM 50 MCG TABLET PO SCH (05:47)
[2022-03-14] MEDS: INSULIN ASPART PER UNIT SC SCH ×4 (09:03→21:52)
[2022-03-14] MEDS: FOLIC ACID 400 MCG TAB PO SCH (09:04)
[2022-03-14] MEDS: ASPIRIN 81 MG ECTAB PO SCH (09:05)
[2022-03-14] MEDS: BRIMONIDINE TARTRATE 0.2% 5ML OP SCH ×2 (09:05→16:57)
[2022-03-14] MEDS: PANTOprazole 40 MG TAB PO SCH (09:05)
[2022-03-14] MEDS: INSULIN GLARGINE SOLOSTAR 100 UNITS/ML 3 ML PEN SC SCH ×2 (09:05→21:52)
[2022-03-14] MEDS: FLUDROCORTISONE ACETATE 0.1 MG TAB PO SCH (09:05)
[2022-03-14] MEDS: bisacodyL 10 MG SUPP PR SCH (09:05)
[2022-03-14] MEDS ORDERED: MIDAZOLAM HCL 1 MG/ML 2ML VIAL ONE (09:33)
[2022-03-14] MEDS ORDERED: fentaNYL citrate 100 MCG/2 ML VIAL ONE (09:33)
[2022-03-14] MEDS ORDERED: NITROGLYCERIN/D5W 100MCG/ML 20ML SYR ONE (09:33)
[2022-03-14] MEDS ORDERED: niCARdipine HCL INJ 2.5 MG/ML 10 ML AMP ONE (09:33)
--- NOTE | 2022-03-14 09:49 | Pre Anesthesia Assessment ---
Date of Service March 14, 2022 Pre Sedation Assessment Vital Signs Temp Pulse Pulse Resp BP BP Pulse Ox 03/14/22 09:46 79 146/90 H 98 03/14/22 06:30 98.1 F 75 18 147/78 H 97 03/13/22 22:41 97.5 F L 69 18 137/79 98 03/13/22 15:40 97.7 F 60 19 120/66 98 03/13/22 14:28 65 03/13/22 11:06 97.5 F L 63 19 115/70 97 Cardiovascular RRR, no murmur, no edema Respiratory normal respiratory effort, lungs clear to auscultation Pre-Sedation Airway Assessment Smoking Status: Former smoker Hx Sleep Apnea: No Hx Difficult Intubation: No Short, Thick Neck: No Thyromental Distance: > or= 3.5 Finger Breadths Oral Cavity: + WNL Mallampati Class: III ASA: ASA3 NPO Status Date of Last Intake of Fluids: 03/14/22 Date of Last Intake of Solid Food: 03/13/22 Procedure Planning Contraindications for Sedation: none Current Medications Reviewed: Yes Notes The planned sedation has been discussed with the patient. Informed Consent was obtained. I have identified the patient, determined the appropriateness of sedation and have assessed the patient immediately prior to the procedure. All medicine(s) and interventions are by my order.
[2022-03-14] MEDS ORDERED: HEPARIN (PORCINE) 1000 UNIT/ML 10 ML (CATH LAB USE ONLY) ONE (10:16)
--- NOTE | 2022-03-14 11:27 | Post Anesthesia Assessment ---
Date of Service March 14, 2022 Post Sedation Assessment Vital Signs Temp Pulse Pulse Resp BP BP Pulse Ox 03/14/22 11:20 87 20 126/76 95 03/14/22 11:05 88 20 124/75 94 03/14/22 09:46 79 146/90 H 98 03/14/22 06:30 98.1 F 75 18 147/78 H 97 03/13/22 22:41 97.5 F L 69 18 137/79 98 03/13/22 15:40 97.7 F 60 19 120/66 98 03/13/22 14:28 65 Recovery Score Activity: Moves 4 extremities Respiration: Deep Breath/Cough Circulation: +/-20% PreAnes Value Consciousness: Fully Awake Oxygen Saturation: O2 needed for >90% Post Anesthesia Score: 10 Discharge Sedation Level of Care: Fast Track Phase II Post Sedation Plan On clinical assessment, the patient appears to have tolerated the sedation without complications. Patient is recovering as anticipated. Patient will continue to be monitored by nursing and may be discharged when sedation discharge criteria are met per below protocol. Upon Completions of procedure up to 15 minutes continue every 5 minute vital signs and the P.A.R. score; then discharge to a Phase I or Fast Track to Phase II per the following guidelines: * Discharge Patient to appropriate Phase II area if PAR is 8 or greater or return to pre- procedure baseline. The post - procedure orders will be as directed. * If PAR score is less than 8 or not return to pre-procedure baseline then patient will follow Phase I monitoring till PAR is reached for Phase II. The Phase I may be done in procedure room or may call to secure a Phase I area. * If naloxone or flumazenil are used for reversal, hold in Phase I for continued monitoring from when last reversal dose was given for a minimum of 60 minutes or longer pending the nurse and/or physician discretion of patient condition before discharge to Phase II. Please call the Sedation Physician to re-evaluate and complete post-note for discharge to Phase II area. Do NOT discharge from procedure sedation or Phase 1 until post- sedation evaluation note is complete by procedure /sedation MD Sedation Discharge Instructions to be given to the patient at discharge to home.
[2022-03-14] MEDS ORDERED: SODIUM CHLORIDE 0.9% 1000ML 1,000 ML IV SCH (11:30)
--- NOTE | 2022-03-14 11:38 | Cardiac Catheterization ---
[facility] Data: Lead Printer Cardiac Status Clinical evaluation leading to the procedure CAD Presenation: Non STEMI Diagnostic Physicians Name: Bob Florian MD Closure Device Recommendations: Medical Therapy and/or Counseling and CABG Cardiac Cath Procedure Full Procedure Date March 14, 2022 Pre-Procedure Diagnosis Pre-Procedure Diagnosis: Non STEMI AUC Score AUC Score: 8 Post-Procedure Diagnosis Post-Procedure Diagnosis: Severe CAD and Normal Intracardiac Pressures Procedure(s) Performed Procedure(s) Performed: Coronary Angiography, Left Heart Cath and Ultrasound Guided Vascular Access Aluminum Siding Installer Bob Florian MD Lead Assembler(s) Income Tax Auditor Estimated Blood Loss Estimated Blood Loss: 10 Medication(s) Medication(s): Fentanyl, Heparin, Lidocaine 1%, Nicardipine, Nitroglycerin and Versed Summary of Findings Indication: NSTEMI, LV dysfunction Access: 6Fr. right radial artery Catheters: [place], JR4, EBU 3.5 Findings: LM - Heavily calcified, 60% distal stenosis prior to bifurcation LAD - heavily calcified, medium caliber, mild to moderate diffuse proximal disea se, 90% mid segment stenosis after diagonal. Distal vessel with mild disease. 70% stenosis as wraps around apex. Medium diagonal with 70% ostial stenosis. Circumflex - heavily calcified, medium caliber, 60% mid segment disease into OM2 RCA -dominant, medium caliber, heavily calcified, diffuse 30% mid segment disease, 30% distal disease. Small PDA. Medium right PLB with diffuse mild disease LVEDP -13 IVUS of left main Left main cannulated with EBU 3.5 guide BMW wire placed into distal circumflex [place] IVUS catheter placed into proximal circumflex Pullback revealed diffuse calcified disease with severe distal left main stenosis (MLA 3.2 mm) Arterial Closure: TR band Summary: 1. Severe multivessel coronary artery disease 60+% distal left main (MLA 3.2 mm by IVUS) Diffuse proximal to mid LAD, 90% mid LAD at bifurcation with diagonal with 70% ostial stenosis 60% mid circumflex into OM 2 2. Normal intracardiac filling pressure Recommendations: Evaluation by cardiac surgery for possible CABG. Hemodynamics Rest Ao:: 125/71/90 Final Ao: 112/57/80 LV: 121/13 Recommendations Recommendations: Medical Therapy and/or Counseling and CABG Specimens Specimens: None Radiation Exposure (mGy) 1153 Contrast (mls) 25 Anesthesia Moderate [id number] Procedural Complication(s) None Disposition PCU I attest to the content of the Intraoperative Record and any orders documented therein. Any exceptions are noted below. [facility] Card Cath Procedure Codes Cardiac Catheterization Procedure 1: Cardiovascular Cath Procedures: 46224 Coronaries and LHC (+/-LV) Therapeutic Services & Ancillary Proc Procedure 1: Cardiovascular Tx and Anc Procedures: 72286 IV Ultrasound (Coronary or Graft) Moderate Sedation Procedure 1: Sedation/Anesthesia: 85877 Mod Sedation by the same physician;Init15 Min Child Age 5 & Up PG Care Time/CCT Total # of Minutes Spent Total Time Spent with Patient: Total time spent is greater than 50% in coordination of care (as documented) at patient's floor/unit and/or counseling patient:
--- NOTE | 2022-03-14 15:06 | Hospitalist Progress Note ---
Date of Service March 14, 2022 Assessment & Plan (1) Elevated troponin: Plan: Mild elevation of troponin associate with brief episode of chest pain. He does have a new right bundle on EKG Telemetry monitoring Troponin is trending down Echocardiogram showed a hypokinetic left ventricular wall movement S/p cardiac cath on 03/14 with the following findings as per cardiology note Findings: LM - Heavily calcified, 60% distal stenosis prior to bifurcation LAD - heavily calcified, medium caliber, mild to moderate diffuse proximal disease, 90% mid segment stenosis after diagonal. Distal vessel with mild disease. 70% stenosis as wraps around apex. Medium diagonal with 70% ostial stenosis. Circumflex - heavily calcified, medium caliber, 60% mid segment disease into OM2 RCA -dominant, medium caliber, heavily calcified, diffuse 30% mid segment disease, 30% distal disease. Small PDA. Medium right PLB with diffuse mild disease LVEDP -13 IVUS of left main Left main cannulated with EBU 3.5 guide BMW wire placed into distal circumflex [place] IVUS catheter placed into proximal circumflex Pullback revealed diffuse calcified disease with severe distal left main stenosis (MLA 3.2 mm) Arterial Closure: TR band Summary: 1. Severe multivessel coronary artery disease 60+% distal left main (MLA 3.2 mm by IVUS) Diffuse proximal to mid LAD, 90% mid LAD at bifurcation with diagonal with 70% ostial stenosis 60% mid circumflex into OM 2 2. Normal intracardiac filling pressure Recommendations: Evaluation by cardiac surgery for possible CABG. Spoke with the cardiology, he stated this patient is stable can be followed outpatient (2) Rigors: Plan: Patient reports uncontrolled shaking possibly consistent with rigors. Denies fever. He does have leukocytosis with WBC = 16.33 with elevated neutrophil to lymphocyte ratio. He was tachycardic on arrival. -Initially started on broad-spectrum antibiotics, however work-up did not show the source of possible sepsis -White cell count is normalized, patient afebrile, no evidence of ongoing infectious process, discussed with cardiology patient can be discharged home tomorrow (3) Gait instability: Plan: Patient reports gait instability in the ER while trying to walk to the bathroom. CT, CTA head and neck were performed in the ER which show heavy vascular calcification, 60% stenosis of the proximal right internal carotid artery. Needs to be followed outpatient with vascular surgery Fall precautions (4) Diabetes: Plan: Chronic. Fairly well-controlled with A1c = 7.1 on 11/23/2021 Check hemoglobin A1c with a.m. labs Insulin sliding scale (5) Acid reflux: Plan: Chronic. Stable on medications Continue Protonix 40 mg p.o. every morning (6) CKD (chronic kidney disease): Plan: BUN and creatinine near baseline Avoid nephrotoxic agents Continue to monitor (7) Dyslipidemia: Plan: Chronic. On medications. Continue pravastatin (8) Hypothyroidism: Plan: Continue Synthroid (9) Orthostatic hypotension: Plan: Chronic. Continue Florinef Admission and Anticipated Discharge Date Admission Date: March 12, 2022 Subjective The patient is a 81-year-old male with a past medical history significant for hypertension diabetes presented to the hospital with episode of chills leukocytosis , or patient complaining of chest pain, echocardiogram showed hypokinetic left ventricle wall movement Review of Systems Review of Systems: General: No malaise no weakness Neck: No tenderness no pain HEENT: No eye discharge no ear discharge Chest: No chest pain, no palpitation GI: Not distended, no nausea no vomiting Extremities: No edema no tenderness Neurology: No headache no weakness Psychiatric: No depression no anxiety Physical Exam Physical Exam: General: patient resting comfortably, NAD, non-toxic in ap pearance, AA&O x 4 Skin: warm, dry, intact, no rashes or lesions. No joint swelling or tenderness. HEENT: NC/AT, PERRL, EOMI, anicteric sclera, conjunctiva without injection, external ear normal to inspection and nontender, nares patent, moist mucus membranes, dentition intact, no oropharyngeal lesions, neck supple, trachea midline, no LAD, no thyromegaly, no JVD Heart: +S1/S2, regular, no m/r/g. Loop recorder in place Lungs: equal air entry bilaterally, no rales/rhonchi/wheezes Abd: +BS, soft, NT/ND, no masses/organomegaly/ascites No CVA tenderness. No pain/tenderness with palpation and percussion of the spine Ext: warm, 2+ pulses in UE/LE bilaterally, no clubbing/cyanosis or edema Neuro: nonfocal, patient AA&O x 4, speech intact, no facial droop, moving all extremities on command with equal strength 5/5 Results & Data Results & Data ([facility]) Vital Signs (Past 12 Hours) Vital Signs Temp Pulse Resp BP Pulse Ox 03/14/22 13:02 36.6 C 99 H 16 137/86 98 03/14/22 12:33 36.8 C 92 H 16 128/77 98 03/14/22 12:02 36.9 C 95 H 18 134/84 99 03/14/22 11:47 36.8 C 96 H 18 130/80 99 03/14/22 11:20 87 20 126/76 95 03/14/22 11:05 88 20 124/75 94 03/14/22 09:46 79 146/90 H 98 03/14/22 06:30 36.7 C 75 18 147/78 H 97 PG Care Time/CCT Total # of Minutes Spent Total Time Spent with Patient: Total time spent is greater than 50% in coordination of care (as documented) at patient's floor/unit and/or counseling patient: Coding Level of Care Code 97060 Subseq Hosp Care Lvl 3 Diagnoses Elevated troponin R77.8 Rigors R68.89 Gait instability R26.81 Diabetes E11.9 Acid reflux K21.9 CKD (chronic kidney disease) N18.9 Dyslipidemia E78.5 Hypothyroidism E03.9 Orthostatic hypotension I95.1
[2022-03-14] MEDS: FINASTERIDE 5 MG TAB PO SCH (20:20)
[2022-03-14] MEDS: CLOPIDOGREL BISULFATE 75 MG TAB PO SCH (20:20)
[2022-03-15 07:26] LABS: Creatinine Clr Calc Pharmacy 49.5 ml/min; Est GFR (African American) 60.7 ml/min; Est GFR (Non-African American) 52.4 ml/min
[2022-03-15 07:27] LABS: Partial Thromboplastin Ratio 1.1; Partial Thromboplastin Time 29.2 Seconds (21.0-31.0)
[2022-03-15] MEDS: INSULIN ASPART PER UNIT SC SCH ×2 (08:40→12:42)
[2022-03-15] MEDS: LEVOTHYROXINE SODIUM 50 MCG TABLET PO SCH (08:40)
[2022-03-15] MEDS: ASPIRIN 81 MG ECTAB PO SCH (08:41)
[2022-03-15] MEDS: BRIMONIDINE TARTRATE 0.2% 5ML OP SCH (08:41)
[2022-03-15] MEDS: FOLIC ACID 400 MCG TAB PO SCH (08:42)
[2022-03-15] MEDS: FLUDROCORTISONE ACETATE 0.1 MG TAB PO SCH (08:42)
[2022-03-15] MEDS: bisacodyL 10 MG SUPP PR SCH (08:42)
[2022-03-15] MEDS: PANTOprazole 40 MG TAB PO SCH (08:43)
[2022-03-15] MEDS: INSULIN GLARGINE SOLOSTAR 100 UNITS/ML 3 ML PEN SC SCH (09:00)
--- NOTE | 2022-03-15 10:00 | Cardiology Progress Note ---
Date of Service March 15, 2022 Assessment & Plan (1) CAD (coronary artery disease): (2) Cardiovascular event risk: Plan: 1. Coronary artery disease: He has quite extensive coronary disease, this is not surprising given his multiple risk factors and evidence of atherosclerosis elsewhere. I suspect his acute presentation was primarily demand driven since no occluded vessel was identified, however given his underlying significant disease bypass surgery has been recommended. I reviewed this recommendation with him again today, he is researching different types of intervention as well as different surgeons. I did give him recommendations for 2 surgeons at [facility] including Dr. Neville and Dr. Lawton. He is also requesting a diagram more specifics about the blockages, I will give him the report and we will try to get him a diagram. He should be able to go home, I can see him in the office to discuss options. He would like to wait until after March because he has a fishing trip planned. 2. Cardiovascular risk factors: He should be on high-dose statin therapy, he evidently has side effects. I have discussed injectable agents as an alternative. At this point he is still reviewing options. I did point out to him that the long-term efficacy of any type of intervention or bypass surgery is based on risk factor modification, primarily cholesterol management. Admission and Anticipated Discharge Date Admission Date: March 12, 2022 Subjective He is feeling well today, he has had no chest discomfort, no cardiovascular complaints. He has no discomfort at the site in his right wrist where the catheterization was performed. Physical Exam Physical Exam: Constitutional: Alert, cooperative and in no distress. Pulmonary: Clear to auscultation bilaterally. Cardiac: Regular rhythm with no murmur, gallop or rub. Abdomen: Soft, nontender with normal bowel sounds. Extremities: No edema. Right wrist catheterization site is clean and dry. Skin: No rash, ecchymoses or petechiae. Results & Data ([facility]) Vital Signs (Past 12 Hours) Vital Signs Temp Pulse Resp BP Pulse Ox 03/15/22 07:49 36.8 C 79 16 152/78 H 99 03/15/22 04:00 36.7 C 76 14 140/79 98 03/14/22 23:21 37.0 C 75 18 145/88 H 96 Laboratory Results Coagulation 03/15/22 Range/Units 06:04 APTT 29.2 (21.0-31.0) Seconds Comprehensive Metabolic Panel 03/15/22 Range/Units 06:04 Creatinine 1.29 (0.6-1.4) mg/dl Intake and Output 03/14/22 03/15/22 03/15/22 22:59 06:59 14:59 Intake Total 1000 / 1402.8 402.8 / 1402.8 Balance 1000 / 1402.8 402.8 / 1402.8 Intake: IV 1000 / 1402.8 402.8 / 1402.8 Heparin Sodium/Dextrose 25,000 402.8 / 402.8 units In 500 ml @ 1,200 UNITS/ HR 24 mls/hr IV .[id number] JERMAINE Rx #:[id number] Sodium Chloride 0.9% 1000ML 1, 1000 / 1000 000 ml @ 100 mls/hr IV .Q10H JERMAINE Rx#:[id number] Other: # Unmeasured Voids 1 Weight 89.5 kg Weight Measurement Method Built in [facility] Diagnostic Findings Telemetry: Sinus rhythm, no significant arrhythmia PG Care Time/CCT Total # of Minutes Spent Total Time Spent with Patient: Total time spent is greater than 50% in coordination of care (as documented) at patient's floor/unit and/or counseling patient: Coding Level of Care Code 40073 Subseq Hosp Care Lvl 2 Diagnoses CAD (coronary artery disease) I25.10 Cardiovascular event risk Z91.89
--- NOTE | 2022-03-15 14:42 | Discharge Summary ---
Date of Service March 15, 2022 Admission HPI Per Admitting Provider Sam Castillo is a 81-year-old male with multiple medical problems to include diabetes, hypertension, hyperlipidemia, COPD, GERD, asthma, hypothyroidism, prostate cancer. Patient developed acute onset of rigors, we akness and fatigue this evening at 1800. He was sitting on his deck when he began to shake uncontrollably. He came into the home and checked his blood sugar which was 129. His checked his blood pressure which was "okay". He also had a brief episode of substernal chest tightness this evening which started in the ER and lasted approximately 20 minutes. Otherwise, he denies fevers/chills/visual changes. He has a chronic headache but denies changes in frequency or severity. No chest pain at present. No palpitations/cough/shortness of breath. No abdominal pain/nausea/vomiting/diarrhea/constipation. He has a history of intermittent dizziness and presyncope but denies any of these symptoms at present. Patient has had rigors in the past after receiving his second [place] COVID 19 shot. He reports pain in his spine yesterday from his lumbar to his cervical which has since resolved. No trauma or falls. No numbness/tingling/weakness. Patient told ER provider that he had shakiness while having a bowel movement. He did not provide this history to me. He also states that the chest discomfort that he experienced was only in the hospital and did not occur at home. He also denied abdominal pain and nausea to me. He reports some gait imbalance and felt that it was difficult to walk in a straight line. CT head, CTA head and neck for stroke rule out obtained to the ER. Results below Principal Diagnosis Multivessel CAD Discharge Exam General: A&Ox3. NAD. Cooperative. HEENT: Atraumatic, normocephalic. Pulm: CTAB A&P. -wheezes, -rales, -rhonchi. Symmetrical chest rise. No increase in work of breathing. No respiratory distress. Cardiac: RRR, -mrg. Radial pulses intact and symmetrical. Abdominal: Nontender, nondistended, soft. BS present. Discharge Data Allergies Allergy/AdvReac Type Severity Reaction Status Date / Time oxycodone Allergy Intermediate Hallucinati Verified 03/11/22 20:03 ng tramadol Allergy Intermediate HALLUCINATI Verified 03/11/22 20:03 ONS gluten Allergy Mild GI SYMPTOMS Verified 03/11/22 20:03 lactose Allergy Mild GI SYMPTOMS Verified 03/11/22 20:03 Penicillins Allergy Mild RASH Verified 03/11/22 20:03 Sulfa (Sulfonamide Allergy Mild RASH Verified 03/11/22 20:03 Antibiotics) Wbpxgxm-SYN-QmJ Reductase AdvReac Intermediate MUSCLE Verified 03/11/22 20:03 Inhibitor WEAKNESS, [Hukhwba-Hxn-Enm Reductase BRAIN FOG Inhibitor] Consultations 03/11/22 23:25 ED Decision to Admit Stat 03/12/22 12:04 Consult Cardiology Routine Procedures Performed Operation Date: 03/14/22 09:30 Actual Procedures s Cineradiography w/Routine Exam - Jarek Florian MD p Cath, Left with Cors and Vent - Jarek Florian MD s IVUS Coronary Single Vessel - Jarek Florian MD Ordered Studies 03/11/22 19:19 CT abd pelvis IV con only Urgent CT angio head w con Urgent CT angio neck with con Urgent CT head/brain wo con Urgent 03/14/22 06:39 CL Cath Imgs for PACS use only Routine 03/14/22 11:18 CL IVUS Coronary Single Vessel Routine Hospital Course (1) Elevated troponin: Sam is a 81-year-old male with a past medical history of hyperlipidemia, hypertension, diabetes, CKD, and [place] 1 second-degree heart block who presented for evaluation of chest pain and he was found to have ALTE vessel coronary artery disease. He did not show signs of acute ACS. Case was reviewed with patient, hospitalist, and cardiology. He has been recommended for CABG and is considering options at [facility] at this time. Currently stable for outpatient follow-up and arrangement. Patient has been statin intolerant in the past and is on pravastatin, discussed secondary management and cholesterol management. Patient is concerned about side effects and notes he has not tolerated Lipitor and other statins before. Would like to continue pravastatin on discharge, and research additional agents. Injectable agents were discussed with him during admission, and patient would like to follow-up with cardiology regarding these. To do as outpatient: 1. Follow-up to cardiology. Referral and assessment for CABG as outpatient 2. Follow-up of cholesterol management, PCSK9 trial versus additional statin moderatehigh dose trial as outpatient if patient agreeable 3. Follow-up of diabetes. Dulaglutide increased from 1.5mg to 3 mg for additional control. Can consider further intensification of diabetes regimen. A1c interval increase from 7.1% to 7.6%, given cardiac risk target goal of less than 7. Increased Trop, CAD multivessel disease Mild elevation of troponin associate with brief episode of chest pain. He does have a new right bundle on EKG Telemetry monitoring Troponin is trending down Echocardiogram showed a hypokinetic left ventricular wall movement S/p cardiac cath on 03/14 with the following findings as per cardiology note Findings: LM - Heavily calcified, 60% distal stenosis prior to bifurcation LAD - heavily calcified, medium caliber, mild to moderate diffuse proximal disease, 90% mid segment stenosis after diagonal. Distal vessel with mild disease. 70% stenosis as wraps around apex. Medium diagonal with 70% ostial stenosis. Circumflex - heavily calcified, medium caliber, 60% mid segment disease into OM2 RCA -dominant, medium caliber, heavily calcified, diffuse 30% mid segment disease, 30% distal disease. Small PDA. Medium right PLB with diffuse mild disease LVEDP -13 IVUS of left main Left main cannulated with EBU 3.5 guide BMW wire placed into distal circumflex [place] IVUS catheter placed into proximal circumflex Pullback revealed diffuse calcified disease with severe distal left main stenosis (MLA 3.2 mm) Arterial Closure: TR band Summary: 1. Severe multivessel coronary artery disease 60+% distal left main (MLA 3.2 mm by IVUS) Diffuse proximal to mid LAD, 90% mid LAD at bifurcation with diagonal with 70% ostial stenosis 60% mid circumflex into OM 2 2. Normal intracardiac filling pressure Recommendations: Evaluation by cardiac surgery for possible CABG. Spoke with the cardiology, he stated this patient is stable can be followed ou tpatient (2) Rigors: Patient reports uncontrolled shaking possibly consistent with rigors. Denies fever. He does have leukocytosis with WBC = 16.33 with elevated neutrophil to lymphocyte ratio. He was tachycardic on arrival. -Initially started on broad-spectrum antibiotics, however work-up did not show the source of possible sepsis -White cell count is normalized, patient afebrile, no evidence of ongoing infectious process, discussed with cardiology patient can be discharged homew/o abx (3) Gait instability: Patient reports gait instability in the ER while trying to walk to the bathroom. CT, CTA head and neck were performed in the ER which show heavy vascular calcification, 60% stenosis of the proximal right internal carotid artery. Needs to be followed outpatient with vascular surgery Fall precautions (4) Diabetes: Chronic. Fairly well-controlled with A1c = 7.1 on 11/23/2021 Insulin sliding scale during admission - Dulaglutide increased from 1.5mg to 3mg on discharge for a1c above goal (5) Acid reflux: Chronic. Stable on medications Continue Protonix 40 mg p.o. every morning (6) CKD (chronic kidney disease): BUN and creatinine near baseline Avoid nephrotoxic agents - stable at dc (7) Dyslipidemia: Chronic. On medications. Continue pravastatin (8) Hypothyroidism: Continue Synthroid (9) Orthostatic hypotension: Chronic. Continue Florinef Total Time Total Time Spent Total Time Spent (In Minutes): Time spend day of discharge 55 minutes including direct patient care, documentation, review of labs and images, and coordination of care. Discharge Plan Discharge Items Patient Disposition: Home - Self-Care Reason For Visit: RIGORS Discharge Diagnosis: Coronary artery disease Activity: As commented below Non-emergency contact: Primary Care Provider and Invoice Clerk Call non-emergency contact if: you have any medication questions, your symptoms worsen, your pain is not controlled, your pain is worsening, your pain is concerning for you and you have a fever Follow-up/Referrals: Sam Leung MD [Physician] - 03/29/22 1:00 pm Dick Adams MD [Primary Care Provider] - Felix Wlesh MD [Physician] - (OFFICE WILL CONTACT YOU WITH A DATE/TIME FOR APPT.) Diet: Heart Healthy Addtl Attending Provider Instructions: While in the hospital you underwent a cardiac evaluation for chest pain. Your EKG showed a new right bundle branch block, a type of abnormality. He did have an elevated troponin which was trending down at time of discharge. An ultrasound of your heart showed reduced movement in the left ventricular wall. You underwent a cardiac catheterization on 03/14 which noted a heavily calcified left main coronary artery, with 60% distal stenosis, a heavily calcified LAD with 90% mid segment stenosis and 70% stenosis around the apex of the heart, a medium diagonal with 70% ostial stenosis, a circumflex artery with 60% mid segment disease, and a right dominant coronary artery also heavily calcified with 30% mid segment disease. Overall this reflects multivessel disease. Various treatment options were discussed with you, and you will have outpatient follow-up to cardiology. Referral for potential CABG/bypass surgery has been discussed and will be revisited by her signs sales representative as an outpatient. It is recommended that you be on a moderate to high-dose statin or other cholesterol modifying agent to help reduce plaque buildup. You have not tolerated high doses of statins in the past. You have been continued on your current pravastatin 20 mg, with close follow-up to cardiology and your PCP who may trial an injectable cholesterol medication with you. During admission you did not show any continued signs of infection, and following initial broad-spectrum antibiotics your antibiotics were discontinued with no worsening symptoms or lab abnormalities. You were not prescribed antibiotics at discharge. During mission you had a CAT scan of your neck which showed 60% stenosis of the proximal right internal carotid artery, a major blood vessel in your neck. Intervention during admission was not recommended, however you should have outpatient follow-up and assessment by vascular surgery. An appointment is being made for you with vascular surgery as noted above. If you do not receive a call to confirm your appointment within 48 hours, please contact their office at the number above. Please follow-up with your primary care physician and signs sales representative at appointments being made as above. Your average blood sugar reflected by hemoglobin A1c was 7.6 during admission. This should optimally be less than 7 to help reduce risk of stroke and heart attack and complications of diabetes. Your dulaglutide has been increased from 1.5 mg to 3 mg weekly. Please discuss this change and other potential changes for blood sugar control with your primary care provider at your follow-up appointment. Your blood sugar was adequately controlled during admission with sliding scale insulin If you develop any new or worsening symptoms including fever, chills, sweats, chest pain, chest pressure, difficulty breathing, uncontrolled nausea/vomiting, rash, wheezing, passing out or nearly passing out, bleeding, black/bloody bowel movements, or other new or concerning symptoms please call your primary care physician, or call 911 for re-evaluation in the emergency department if you are very concerned. Pending Studies at Discharge: No Stand-Alone Forms: [employer], Smoking Cessation Medications and DC Order Prescriptions: Continued clindamycin HCl 300 mg capsule 600 mg PO DIRECTED PRN (Reason: pretreat dental appt) Qty: 10 RF: 0 pravastatin 10 mg tablet 20 mg PO 2XWK Qty: 45 RF: 3 (DME) FreeStyle Lite Strips Strip See Rx Instructions .Route Qty: 300 RF: 0 (DME) lancets [FreeStyle Lancets] 28 gauge misc See Rx Instructions .Route Qty: 300 RF: 3 levothyroxine [Synthroid] 50 mcg tablet 50 mcg PO QAM Qty: 90 RF: 1 finasteride [Proscar] 5 mg tablet 5 mg PO HS Qty: 90 RF: 3 pantoprazole 40 mg tablet,delayed release (DR/EC) 40 mg PO QAM Qty: 90 RF: 3 clopidogrel [Plavix] 75 mg tablet 75 mg PO PM Qty: 90 RF: 3 brimonidine 0.2 % drops 1 drp ophthalmic (eye) BID Qty: 15 RF: 2 folic acid 400 mcg tablet 0.4 mg PO DAILY RF: 0 zinc 50 mg tablet 50 mg PO DAILY RF: 0 elderberry fruit [Elderberry] 1 tab PO DAILY RF: 0 fludrocortisone 0.1 mg tablet 0.1 mg PO DAILY Qty: 30 RF: 11 glimepiride 4 mg tablet 4 mg PO QPM Qty: 90 RF: 3 aspirin 81 mg Tablet,Delayed Release (Dr/Ec) 81 mg PO QAM RF: 0 glucosamine sanchez 2KCl-chondroit [Glucosamine-Chondroitin 3X Str] 750-600 mg Tablet 1 tab PO BID RF: 0 cholecalciferol (vitamin D3) [Vitamin D3] 2,000 unit Capsule 2,000 unit PO BID RF: 0 Hold Instructions: not taking coenzyme Q10 [CoQ-10] 100 mg Capsule 100 mg PO QAM RF: 0 Neuro-Plus Capsule 1 cap PO DAILY RF: 0 Changed Trulicity 1.5 mg/0.5 mL pen injector 3 mg subcut WK Qty: 2 RF: 5 Discharge Orders: Discharge Order (Routine); Ordered 03/15/22 Ordered By: Rolando Frances/Other Patient Handouts: Managing Type 2 Diabetes Admission Data Admit Date/Time: 03/12/22 00:18 Attending Provider: Rolando Hernandes Admit Provider: Misti Parish Primary Care Provider: Dick Adams Other Providers: Misti Parish ; Dick Mohan Coding Level of Care Code D/C DAY MANAGEMENT >30 MINS Diagnoses Elevated troponin R77.8 Rigors R68.89 Gait instability R26.81 Diabetes E11.9 Acid reflux K21.9 CKD (chronic kidney disease) N18.9 Dyslipidemia E78.5 Hypothyroidism E03.9 Orthostatic hypotension I95.1
[2022-03-15] MEDS ORDERED: VANCOMYCIN TROUGH ONE (19:30)
== END 2022-03-15 15:26 | disposition home or self-care (01) | DRG 282 ==
LOC: ED 18:51 → 2N 03-12 00:18 → SUATTDRO 03-12 00:18 → 2N 03-12 00:53 → 2E 03-14 11:23

== ENCOUNTER 2022-06-30 18:01 | Inpatient (IN) ==
[2022-06-30 19:02] LABS: Hematocrit (blood only) 29.1 % (40.1-51.0); Hemoglobin 9.8 g/dl (14.0-18.0); Mean Corpuscular Hemoglobin 30.6 pg (25.0-34.0); Mean Corpuscular Hgb Conc 33.7 g/dL (32.0-36.0); Mean Corpuscular Volume 90.9 fL (80.0-100.0); Mean Platelet Volume 10.7 fL (9.4-12.4); Platelet Count 154 K/uL (130-400); RDW Standard Deviation 46.6 fL (36.4-46.3); White Blood Count 7.89 K/ul (4.8-10.8)
--- NOTE | 2022-06-30 19:11 | Emergency Department Note ---
Impression & Plan JORGE (acute kidney injury), TIA (transient ischemic attack), UTI (urinary tract infection) ED Provider Note NAME: LIZZETH RAPP AGE: 82 SEX: M : 1940 ARRIVES VIA: Walk-In INFORMANT: Patient ED PROVIDER(S): Titi Dutton DO CHIEF COMPLAINT: UTI HPI: Patient is an 82-year-old male who presents to the ER with past medical history of TIA, CKD, recent CABG who was seen and evaluated in the ER several days ago. He had a scope on Saturday by Dr. Sandra. He was seen on Saturday for hematuria. He already had a Interiano placed. He had a left-sided weakness two weeks ago which last for about 24hrs. He had a full work-up and declined admission for the stroke work-up after the case was discussed with neurology. His renal function was also elevated at that time. Urine culture resulted and grew Pseudomonas. His QTC was prolonged on last EKG and consequently he was referred in by our pharmacy. Patient admits to dysuria which has been constant. ROS: See above HPI for pertinent positives & negatives. A total of 10 systems reviewed and were otherwise negative. PAST MEDICAL HISTORY:See Below PAST SURGICAL HISTORY:See Below FAMILY HISTORY:See Below SOCIAL HISTORY:See Below HOME MEDICATIONS:See Below ALLERGIES:See Below VITALS:See Below PHYSICAL EXAMINATION: GENERAL: Sitting up in bed, alert, well appearing, well nourished, no distress, non-toxic EYE EXAM: normal conjunctiva. PERRL and EOM's grossly intact. OROPHARYNX: no exudate, no erythema, lips, buccal mucosa, and tongue normal and mucous membranes are moist NECK: supple, no nuchal rigidity, no adenopathy, non-tender LUNGS: Clear to auscultation. Normal chest wall mechanics HEART: no murmurs, S1 normal and S2 normal ABDOMEN: abdomen soft, non-tender, normo-active bowel sounds, no masses, no rebound or guarding. UPPER EXTREMITIES: upper extremities are grossly normal. LOWER EXTREMITIES: No pitting edema. NEURO EXAM: Normal sensorium, cranial nerves II-XII grossly intact, normal speech, no gross weakness of arms, no gross weakness of legs. MEDICAL DECISION MAKING: Patient is an 82-year-old male who presents the ER referred by pharmacy for prolonged QT with Pseudomonas UTI susceptible to quinolones. He was recently seen and evaluated and recommended admission for TIA as well as JORGE but declined and was discharged home. Urine culture resulted today and is Kercher return. Upon review of his chart upon presentation QTC is prolonged however he does have a pacer in place which would negate this. Labs showed no leukocytosis. Mild anemia 9.8. BMP with a creatinine which continues to trend up at 2.4 off of baseline which appears to be 1.3-1.5. LFTs bilirubin was unremarkable. Lipase was normal. He was given IV fluids as well as IV cefepime. COVID was negative. Updated and was brought in for further evaluation. Triage Nursing notes reviewed. Limited review of prior medical records performed Vital Signs: reviewed and remarkable for no significant abnormalities Differential diagnosis: Differential diagnoses includes but is not limited to gastritis, peptic ulcer disease, GERD, gallbladder disease, pancreatitis, small bowel obstruction, acute coronary syndrome, pericarditis, ischemic bowel, irritable bowel disease, irritable bowel syndrome, appendicitis, diverticulitis, malignancy, hernia, urinary tract infection, torsion, perforation, trauma, infectious. ER treatment provided: See below Diagnostics interpreted by me: ECG: Dual paced rate of 70 QTC 490 Cardiac Monitoring: An order was placed for continuous cardiac monitoring. The monitor shows a rate of 72 with sinus rhythm. Laboratory studies: As stated above and show below. Imaging studies: See below Consultation(s): Discusssed with Melanie Parish for further evaluation Procedures: none Critical Care: None Past Med/Surg History Medical History (Updated 06/30/22 @ 21:30 by Titi Dutton DO) Arthritis Carotid artery stenosis Chronic obstructive pulmonary disease no inhalers currently "MILD" Diabetes mellitus, type 2 GERD (gastroesophageal reflux disease) History of asthma History of prostate cancer treated with radiation. no surgery. Hypercholesteremia Hypertension WAS ON BP MEDS>FELT DIZZY/SYNCOPAL EPISODES Hypothyroidism Pancreatic tumor ?TUMOR/CYST> FOUND ON EXAM (GETS ULTRASOUNDS/MRI OR CT SCANS YEARLY TO MONITOR) Spinal stenosis of lumbar region Stage III chronic kidney disease Syncope ~2-3 years ago -- has a loop recorder in place TIA (transient ischemic attack) (~2001) CONT. LEFT SIDE WEAKNEES WITH TOE DROP OCCAS.>2001 *REASON FOR PLAVIX Surgical History (Updated 06/18/22 @ 11:23 by Cm Alvarado LPN) H/O colonoscopy with polypectomy H/O hernia repair as a toddler History of cataract surgery LEFT History of esophagogastroduodenoscopy (EGD) History of knee replacement RT History of loop recorder in place currently. follows with Dr. Leung. History of tonsillectomy and adenoidectomy Hx of cholecystectomy S/P lumbar laminectomy S/P triple vessel bypass [place] teeth removed Family History Brother Colon cancer Prostate cancer Grandfather Rectal cancer Unknown Heart disease Cancer Hypertension Mother Diabetes Congestive heart failure Grandmother (Paternal) Stroke Grandfather (Maternal) Myocardial infarction Other No family history of adverse response to anesthesia Denies family history of Ovarian cancer Breast cancer Social History Smoking Status: Never smoker Tobacco Type: Pipe Second Hand Exposure: Yes; Hx Alcohol Use: No Hx Substance Use: No Preferred Language: [place] Communication Ability: Effective Visual Impairment: No Limitations Hearing Ability: Use of Hearing Aid Air Traffic Supervisor Required: No Beliefs That Will Affect Care: None marital status: Current Living Situation: Spouse current occupational status: retired How many Children do You have: 3 Feels Safe at Home: Yes Childhood Exposure to Second-Hand Smoke: Yes Dental Care, Regularly: Yes Physical Activity Frequency: Daily Seatbelt Use: always Sunscreen Use: Yes Assistive Devices: None Allergies Allergies Allergy/AdvReac Type Severity Reaction Status Date / Time oxycodone Allergy Intermediate Hallucinati Verified 06/30/22 21:22 ng tramadol Allergy Intermediate HALLUCINATI Verified 06/30/22 21:22 ONS gluten Allergy Mild GI SYMPTOMS Verified 06/30/22 21:22 lactose Allergy Mild GI SYMPTOMS Verified 06/30/22 21:22 Penicillins Allergy Mild RASH Verified 06/30/22 21:22 Sulfa (Sulfonamide Allergy Mild RASH Verified 06/30/22 21:22 Antibiotics) Pqxyecy-YHH-XxI Reductase AdvReac Intermediate MUSCLE Verified 06/30/22 21:22 Inhibitor WEAKNESS, [Ahetqhn-Bxt-Yvo Reductase BRAIN FOG Inhibitor] cyclobenzaprine Allergy Unknown Uncoded 06/30/22 21:22 Home Meds Home Medications Medication Instructions Recorded Confirmed aspirin 81 mg tablet,delayed 81 mg PO QAM 10/08/20 06/30/22 release folic acid 400 mcg tablet 0.4 mg PO DAILY 02/22/22 06/30/22 dulaglutide 1.5 mg/0.5 mL 1.5 mg subcut WK 06/30/22 06/30/22 subcutaneous pen injector (Trulicity) metoprolol tartrate 25 mg tablet 25 mg PO Q12 06/30/22 06/30/22 Previous Rx's Medication Instructions Recorded brimonidine 0.2 % eye drops 1 drp ophthalmic (eye) BID #15 mL 11/23/21 levothyroxine 50 mcg tablet 50 mcg PO QAM #90 tabs 12/12/21 (Synthroid) finasteride 5 mg tablet (Proscar) 5 mg PO HS #90 tabs 12/26/21 clopidogrel 75 mg tablet (Plavix) 75 mg PO PM #90 tabs 02/13/22 fludrocortisone 0.1 mg tablet 0.1 mg PO DAILY #30 tabs 02/22/22 pravastatin 10 mg tablet 10 mg PO DAILY #90 tabs 03/29/22 blood sugar diagnostic (FreeStyle #300 ea 04/09/22 Lite Strips) lancets 28 gauge (FreeStyle #300 ea 04/09/22 Lancets) furosemide 40 mg tablet 40 mg PO DAILY #30 tabs 06/13/22 potassium chloride 20 mEq 20 meq PO DAILY #30 tabs 06/13/22 tablet,extended release Results & Data (ED) Vital Signs Vital Signs - 24 hr 06/30/22 18:03 06/30/22 19:12 Temperature 36.9 C Temperature Source Oral Pulse Rate 71 70 Respiratory Rate 18 17 Blood Pressure 119/68 Blood Pressure Mean 85 Pulse Oximetry 98 98 Oxygen Delivery Method Room Air Room Air Sepsis Recent Fever Within 48 Hours No Sepsis New/Unexplained Change in Mental Status No Sepsis Action Taken by Nursing No Action Required Laboratory Data Result diagrams: 06/30/22 18:50 06/30/22 18:50 Lab Results 06/30/22 06/30/22 06/30/22 Range/Units 18:50 18:50 20:58 WBC 7.89 (4.8-10.8) K/ul RBC 3.20 L (4.63-6.08) M/uL Hgb 9.8 L (14.0-18.0) g/dl Hct 29.1 L (40.1-51.0) % MCV 90.9 (80.0-100.0) fL MCH 30.6 (25.0-34.0) pg MCHC 33.7 (32.0-36.0) g/dL RDW Std Deviation 46.6 H (36.4-46.3) fL RDW Coeff of Vinny 14.0 (11.5-14.5) % Plt Count 154 (130-400) K/uL MPV 10.7 (9.4-12.4) fL Neutrophils % (Manual) 68 % Lymphocytes % (Manual) 16 % Monocytes % (Manual) 11 % Eosinophils % (Manual) 4 % Myelocytes % (Man) 1 % Neutrophils # (Manual) 5.37 (1.4-6.5) K/uL Total Absolute Neuts 5.37 (1.4-6.5) K/uL Lymphocytes # (Manual) 1.26 (1.2-3.4) K/uL Total Abs Lymphocytes 1.26 (1.2-3.4) K/uL Monocytes # (Manual) 0.87 H (0.24-0.82) K/uL Eosinophils # (Manual) 0.32 (0-0.50) K/uL Myelocytes # (Manual) 0.08 H (0-0) K/uL RBC Morphology Unremarkable Sodium 136 (136-145) mmol/L Potassium 3.5 (3.5-5.1) mmol/L Chloride 99 (98-107) mmol/L Carbon Dioxide 29 (21-32) mmol/L Anion Gap 8 (3-11) BUN 36 H (6-23) mg/dl Creatinine 2.40 H (0.6-1.4) mg/dl Est Cr Clr Drug Dosing Not Reportable Est GFR ( Amer) 28.5 ml/min Est GFR (Non-Af Amer) 24.6 ml/min BUN/Creatinine Ratio 15.0 (10-20) Glucose 178 H (70-99(Fasting)) mg/dl Calcium 9.0 (8.5-10.1) mg/dl Total Bilirubin 0.5 (0.2-1.0) mg/dl AST 14 (13-39) U/L ALT 10 (7-52) U/L Alkaline Phosphatase 99 (34-104) U/L Total Protein 6.6 (6.0-8.3) gm/dl Albumin 3.9 (3.4-5.0) gm/dl Globulin 2.7 (2.5-4.0) gm/dl Albumin/Globulin Ratio 1.4 (0.9-2) Lipase 18 (11-82) U/L SARS-CoV-2, RNA, NAAT NEGATIVE (NEGATIVE) Administered Medications Discontinued Medications Sodium Chloride (Nss 1000ml) 1,000 mls @ 999 mls/hr IV .Q1H1M ONE Stop: 06/30/22 20:30 Last Infusion: 06/30/22 21:01 Dose: 0 mls/hr Documented By: Admin: 06/30/22 19:53 Dose: 999 mls/hr Documented By: ORALIA Cefepime HCl (Maxipime) 2,000 mg in 20 mls @ 5 mls/min IV NOW STA; Protocol Stop: 06/30/22 19:33 Last Admin: 06/30/22 19:52 Dose: 5 mls/min Documented By: ORALIA Discharge Plan Visit Data Chief Complaint: Abnormal Labs/Diagnostic Testing Stated Complaint: ABNORMAL URINE CULTURE ED Provider: Titi Dutton Discharge Problem: JORGE (acute kidney injury), TIA (transient ischemic attack), UTI (urinary tract infection) Forms Stand Alone Forms: My [facility] [place] [employer] (Chapter 11) Prescriptions Prescriptions: No Action levothyroxine [Synthroid] 50 mcg tablet 50 mcg PO QAM Qty: 90 1RF finasteride [Proscar] 5 mg tablet 5 mg PO HS Qty: 90 3RF clopidogrel [Plavix] 75 mg tablet 75 mg PO PM Qty: 90 3RF (DME) FreeStyle Lite Strips Strip See Rx Instructions .Route Qty: 300 3RF Rx Instructions: TEST THREE TIMES DAILY. DX: E11.9 (DME) lancets [FreeStyle Lancets] 28 gauge misc See Rx Instructions .Route Qty: 300 3RF Rx Instructions: TEST THREE TIMES DAILY. DX: E11.9 furosemide 40 mg tablet 40 mg PO DAILY Qty: 30 5RF potassium chloride 20 mEq tablet extended release 20 meq PO DAILY Qty: 30 5RF brimonidine 0.2 % drops 1 drp ophthalmic (eye) BID Qty: 15 2RF Rx Instructions: administer approximately 8 hours apart folic acid 400 mcg tablet 0.4 mg PO DAILY fludrocortisone 0.1 mg tablet 0.1 mg PO DAILY Qty: 30 11RF pravastatin 10 mg tablet 10 mg PO DAILY Qty: 90 3RF aspirin 81 mg Tablet,Delayed Release (Dr/Ec) 81 mg PO QAM metoprolol tartrate 25 mg tablet 25 mg PO Q12 Trulicity 1.5 mg/0.5 mL pen injector 1.5 mg subcut WK Referrals Referrals: Pro,Dick Waldron MD [Primary Care Provider] -
[2022-06-30 19:20] LABS: ALC (manual) 1.26 K/uL (1.2-3.4); ANC (manual) 5.37 K/uL (1.4-6.5); Eosinophils # (manual) 0.32 K/uL (0-0.50); Eosinophils % (manual) 4 %; Lymphocytes # (manual) 1.26 K/uL (1.2-3.4); Lymphocytes % (manual) 16 %; Monocytes # (manual) 0.87 K/uL (0.24-0.82); Monocytes % (manual) 11 %; Myelocytes # (manual) 0.08 K/uL (0-0); Myelocytes % (manual) 1 %; Neutrophils # (manual) 5.37 K/uL (1.4-6.5); Neutrophils % (manual) 68 %; RBC Morphology Unremarkable
[2022-06-30 19:25] LABS: Alanine Aminotransferase 10 U/L (7-52); Albumin Globulin Ratio 1.4 (0.9-2); Albumin Level 3.9 gm/dl (3.4-5.0); Alkaline Phosphatase 99 U/L (34-104); Anion Gap 8 (3-11); Aspartate Aminotransferase 14 U/L (13-39); Bilirubin,Total 0.5 mg/dl (0.2-1.0); Blood Urea Nitrogen 36 mg/dl (6-23); Carbon Dioxide 29 mmol/L (21-32); Chloride 99 mmol/L (98-107); Est GFR (African American) 28.5 ml/min; Est GFR (Non-African American) 24.6 ml/min; Globulin 2.7 gm/dl (2.5-4.0); Glucose 178 mg/dl (70-99(Fasting)); Lipase 18 U/L (11-82); Potassium 3.5 mmol/L (3.5-5.1); Sodium 136 mmol/L (136-145); Total Protein 6.6 gm/dl (6.0-8.3)
[2022-06-30] MEDS ORDERED: CEFEPIME 2,000 MG/20 ML VIAL IV STA (19:30)
[2022-06-30] MEDS ORDERED: SODIUM CHLORIDE 0.9% 1000ML 1,000 ML IV ONE (19:30)
--- NOTE | 2022-06-30 20:43 | History & Physical Report ---
Date of Service June 30, 2022 Assessment & Plan (1) UTI (urinary tract infection): Plan: Urine culture from 06/28/22 positive for Psuedomonas and probable enterococcus. Patient with indwelling Interiano catheter in place, recent cystoscopy performed as well. He is afebrile, HD stable and non-toxic in appearance. Interiano catheter changed in the ER. Initially some concern for patient's prolonged QT-interval and use of Ciprofloxacin. Patient with BiV pacer in place -Admit to medical -Follow sensitivities on Enterococcus -Cefepime for now, renal dosing (2) Hematuria: Plan: Patient with ongoing hematuria. Interiano in place, recent cytoscopy. His catheter is draining effectively. -Monitor H/H -Interiano management PRN with flushing -Tx of UTI a above -Consider Urology consultation -Continue Finasteride (3) CKD (chronic kidney disease): Plan: Patient with CKD-III, progression of renal dysfunction following CABG and MICU stay. Patient with post-operative hypotension requiring pressors/ionotropes, acute blood loss anemia requiring transfusion. Suspect that 2.4 may be near patients new baseline Cr -Check renal US -Check FeUREA -Avoid nephrotoxic agents -Renal dosing where required (4) Left-sided weakness: Plan: Patient reports ongoing left sided weakness x 2 weeks. He had a CT of the head during last ER visit which was negative for acute hemorrhage. Patient preferred to complete CVA workup outpatient -Check MRI brain -Check 2D echo with bubble study -Continue ASA 81mg po daily -Continue Plavix 75mg po qPM -Continue Pravastatin - Patient would most likely benefit from high-intensity statin therapy - Atorvastatin or Rosuvastatin. Has allergy listed - muscle weakness, brain fog. Is tolerating Pravastatin (5) CAD (coronary artery disease): Plan: s/p CABG x 3V performed at [facility] [place] on 05/23/22. Patient denies chest pain. -Continue ASA, Plavix, Metoprolol, Pravastatin (6) Orthostatic hypotension: Plan: Blood pressure 145/87 currently -Continue Fludrocortisone 0.1mg po daily (7) Controlled type 2 diabetes mellitus with chronic kidney disease: Plan: Chronic. Moderately well controlled on Trulicity. Last AIC=7.6 on 03/12/22 -ISS -Check HgbA1C with AM labs (8) Hypertension: Plan: Patient was taken off antihypertensive agent -Monitor BP (9) Hypothyroidism: Plan: Chronic. TSH WNL -Continue Synthroid F/E/N - LR at 80ml/hr x 2L. Monitor electrolytes, AHA/CC diet as tolerated with aspiration precautions Ppx - SCD Code - Full Dispo -Admit to medical History of Present Illness Chief Complaint: UTI Primary Care Provider: Dick Adams MD Sam Castillo is a pleasant 82yo male with history of CAD, HTN, HLP, COPD, DM, CKD-III, Prostate CA, AF and GERD. Patient was admitted to [facility] from 05/23/22 - 05/30/22. He had CABG x 3V (CHRISTINE to LAD, Saphenous vein grafts to 1st diagonal and OM) and placement of atrial and biventricular pacemaker on 05/23/22. His post-operative course was complicated by cardiogenic shock requiring pressor/ionotropic support with levophed and dobutamine, delirium requiring treatment with Precedex infusion, acute blood loss anemia and coagulopathy s/p PRBC transfusion, 2u platelets and 2u FFP, Atrial fibrillation managed with amiodarone, ileus, critical illness myopathy and acute urinary retention requiring placement of Interiano catheter. Patient was discharged to [facility] 05/30/22. He did well with therapy overall. Had some lightheadedness upon standing which improved prior to discharge. He did have some mild elevation of Cr to 2.6. He was discharged to home on 06/12/22. Patient was seen by PCP in followup on 06/17/22. During that visit he voiced concern re: his multiple new medications. His Amlodipine was decreased to 2.5mg daily. His Interiano remained in place. He was seen by Urology on 06/27/22 and had a cystoscopy performed which revealed moderate prostate enlargement with signs of obstruction, chronic bladder outlet obstruction. No masses or tumors present. He was seen in the ER on 06/28/22 with complaint of hematuria as well as mention of left sided weakness that occurred 2 weeks prior. He had a negative CT of the head. It was recommended that he stay for a CVA workup but preferred to go home. He returns today with complaint of ongoing hematuria with passage of clots, UTI with culture positive for Pseudomonas and possible Enterococcus from 06/28/22 and persistent mild weakness of the left hand and leg. No additional complaints. He denies fever, chills, chest pain, cough, SOB, abdominal pain, nausea, vomiting, diarrhea or constipation. ER Course: Cefepime, NSS Allergies Allergy/AdvReac Type Severity Reaction Status Date / Time oxycodone Allergy Intermediate Hallucinati Verified 06/30/22 21:22 ng tramadol Allergy Intermediate HALLUCINATI Verified 06/30/22 21:22 ONS gluten Allergy Mild GI SYMPTOMS Verified 06/30/22 21:22 lactose Allergy Mild GI SYMPTOMS Verified 06/30/22 21:22 Penicillins Allergy Mild RASH Verified 06/30/22 21:22 Sulfa (Sulfonamide Allergy Mild RASH Verified 06/30/22 21:22 Antibiotics) cyclobenzaprine Allergy Unknown Unknown Verified 06/30/22 23:41 Dhfouya-LIQ-HmT Reductase AdvReac Intermediate MUSCLE Verified 06/30/22 21:22 Inhibitor WEAKNESS, [Wxsipwr-Lhd-Zdl Reductase BRAIN FOG Inhibitor] Home Medications Medication Instructions Recorded Confirmed Type aspirin 81 mg tablet,delayed 81 mg PO QAM 10/08/20 06/30/22 History release brimonidine 0.2 % eye drops 1 drp ophthalmic (eye) BID #15 mL 11/23/21 06/30/22 Rx levothyroxine 50 mcg tablet 50 mcg PO QAM #90 tabs 12/12/21 06/30/22 Rx (Synthroid) finasteride 5 mg tablet (Proscar) 5 mg PO HS #90 tabs 12/26/21 06/30/22 Rx clopidogrel 75 mg tablet (Plavix) 75 mg PO PM #90 tabs 02/13/22 06/30/22 Rx fludrocortisone 0.1 mg tablet 0.1 mg PO DAILY #30 tabs 02/22/22 06/30/22 Rx folic acid 400 mcg tablet 0.4 mg PO DAILY 02/22/22 06/30/22 History pravastatin 10 mg tablet 10 mg PO DAILY #90 tabs 03/29/22 06/30/22 Rx blood sugar diagnostic (FreeStyle #300 ea 04/09/22 06/30/22 Rx Lite Strips) lancets 28 gauge (FreeStyle #300 ea 04/09/22 06/30/22 Rx Lancets) furosemide 40 mg tablet 40 mg PO DAILY #30 tabs 07/27/22 08/13/22 Rx potassium chloride 20 mEq 20 meq PO DAILY #30 tabs 06/13/22 06/30/22 Rx tablet,extended release dulaglutide 1.5 mg/0.5 mL 1.5 mg subcut WK 06/30/22 06/30/22 History subcutaneous pen injector (Trulicity) metoprolol tartrate 25 mg tablet 25 mg PO Q12 06/30/22 06/30/22 History Past Med/Surg History Medical History (Updated 07/01/22 @ 00:29 by Misti Parish DO) Arthritis Carotid artery stenosis Chronic obstructive pulmonary disease no inhalers currently "MILD" Diabetes mellitus, type 2 GERD (gastroesophageal reflux disease) History of asthma History of prostate cancer treated with radiation. no surgery. Hypercholesteremia Hypertension WAS ON BP MEDS>FELT DIZZY/SYNCOPAL EPISODES Hypothyroidism Pancreatic tumor ?TUMOR/CYST> FOUND ON EXAM (GETS ULTRASOUNDS/MRI OR CT SCANS YEARLY TO MONITOR) Spinal stenosis of lumbar region Stage III chronic kidney disease Syncope ~2-3 years ago -- has a loop recorder in place TIA (transient ischemic attack) (~2001) CONT. LEFT SIDE WEAKNEES WITH TOE DROP OCCAS.>2001 *REASON FOR PLAVIX Surgical History (Updated 06/18/22 @ 11:23 by Cm Alvarado LPN) H/O colonoscopy with polypectomy H/O hernia repair as a toddler History of cataract surgery LEFT History of esophagogastroduodenoscopy (EGD) History of knee replacement RT History of loop recorder in place currently. follows with Dr. Leung. History of tonsillectomy and adenoidectomy Hx of cholecystectomy S/P lumbar laminectomy S/P triple vessel bypass [place] teeth removed Family History Brother Colon cancer Prostate cancer Grandfather Rectal cancer Unknown Heart disease Cancer Hypertension Mother Diabetes Congestive heart failure Grandmother (Paternal) Stroke Grandfather (Maternal) Myocardial infarction Other No family history of adverse response to anesthesia Denies family history of Ovarian cancer Breast cancer Social History Smoking Status: Never smoker Tobacco Type: Pipe Second Hand Exposure: Yes; Hx Alcohol Use: No Hx Substance Use: No Preferred Language: Burmese Communication Ability: Effective Visual Impairment: No Limitations Hearing Ability: Use of Hearing Aid 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 Required: No Beliefs That Will Affect Care: None marital status: Current Living Situation: Spouse current occupational status: retired How many Children do You have: 3 Feels Safe at Home: Yes Childhood Exposure to Second-Hand Smoke: Yes Dental Care, Regularly: Yes Physical Activity Frequency: Daily Seatbelt Use: always Sunscreen Use: Yes Assistive Devices: None Review of Systems Review of Systems: All systems reviewed & are unremarkable except as noted in HPI & below Physical Exam Physical Exam: General: patient resting comfortably, NAD, non-toxic in appearance, AA&O x 4 Skin: warm, dry, intact, no rashes or lesions HEENT: NC/AT, PERRL, EOMI, anicteric sclera, conjunctiva without injection, external ear normal to inspection and nontender, nares patent, moist mucus membranes, dentition intact, no oropharyngeal lesions, neck supple, trachea midline, no LAD, no thyromegaly, no JVD Heart: +S1/S2, regular, no m/r/g Lungs: equal air entry bilaterally, no rales/rhonchi/wheezes Abd: +BS, soft, NT/ND, no masses/organomegaly/ascites Ext: warm, 2+ pulses in UE/LE bilaterally, no clubbing/cyanosis or edema, Interiano in place with leg bag Neuro: patient AA&O x 4, speech intact, no facial droop, moving all extremities on command, slightly diminished hand rn admit on left 4+/5 as well as 4+/5 flexion and extension of left arm, mildly diminished left leg strength Results & Data Results & Data ([facility]) Vital Signs (Past 12 Hours) Vital Signs Temp Pulse Resp BP Pulse Ox O2 Del Method 06/30/22 19:12 70 17 98 Room Air 06/30/22 18:03 36.9 C 71 18 119/68 98 Room Air Laboratory Results Laboratory Results WBC 7.89 K/ul (4.8-10.8) 06/30/22 18:50 RBC 3.20 M/uL (4.63-6.08) L 06/30/22 18:50 Hgb 9.8 g/dl (14.0-18.0) L 06/30/22 18:50 Hct 29.1 % (40.1-51.0) L 06/30/22 18:50 MCV 90.9 fL (80.0-100.0) 06/30/22 18:50 MCH 30.6 pg (25.0-34.0) 06/30/22 18:50 MCHC 33.7 g/dL (32.0-36.0) 06/30/22 18:50 RDW Std Deviation 46.6 fL (36.4-46.3) H 06/30/22 18:50 RDW Coeff of Vinny 14.0 % (11.5-14.5) 06/30/22 18:50 Plt Count 154 K/uL (130-400) 06/30/22 18:50 MPV 10.7 fL (9.4-12.4) 06/30/22 18:50 Neutrophils % (Manual) 68 % 06/30/22 18:50 Lymphocytes % (Manual) 16 % 06/30/22 18:50 Monocytes % (Manual) 11 % 06/30/22 18:50 Eosinophils % (Manual) 4 % 06/30/22 18:50 Myelocytes % (Man) 1 % 06/30/22 18:50 Neutrophils # (Manual) 5.37 K/uL (1.4-6.5) 06/30/22 18:50 Total Absolute Neuts 5.37 K/uL (1.4-6.5) 06/30/22 18:50 Lymphocytes # (Manual) 1.26 K/uL (1.2-3.4) 06/30/22 18:50 Total Abs Lymphocytes 1.26 K/uL (1.2-3.4) 06/30/22 18:50 Monocytes # (Manual) 0.87 K/uL (0.24-0.82) H 06/30/22 18:50 Eosinophils # (Manual) 0.32 K/uL (0-0.50) 06/30/22 18:50 Myelocytes # (Manual) 0.08 K/uL (0-0) H 06/30/22 18:50 RBC Morphology Unremarkable 06/30/22 18:50 Sodium 136 mmol/L (136-145) 06/30/22 18:50 Potassium 3.5 mmol/L (3.5-5.1) 06/30/22 18:50 Chloride 99 mmol/L (98-107) 06/30/22 18:50 Carbon Dioxide 29 mmol/L (21-32) 06/30/22 18:50 Anion Gap 8 (3-11) 06/30/22 18:50 BUN 36 mg/dl (6-23) H 06/30/22 18:50 Creatinine 2.40 mg/dl (0.6-1.4) H 06/30/22 18:50 Est Cr Clr Drug Dosing Not Reportable 06/30/22 18:50 Est GFR ( Amer) 28.5 ml/min 06/30/22 18:50 Est GFR (Non-Af Amer) 24.6 ml/min 06/30/22 18:50 BUN/Creatinine Ratio 15.0 (10-20) 06/30/22 18:50 Glucose 178 mg/dl (70-99(Fasting)) H 06/30/22 18:50 POC Glucose 133 mg/dl (70-99) H 06/30/22 23:21 Calcium 9.0 mg/dl (8.5-10.1) 06/30/22 18:50 Phosphorus 4.1 mg/dl (2.5-4.9) 06/30/22 18:50 Magnesium 2.0 mg/dl (1.7-2.4) 06/30/22 18:50 Total Bilirubin 0.5 mg/dl (0.2-1.0) 06/30/22 18:50 AST 14 U/L (13-39) 06/30/22 18:50 ALT 10 U/L (7-52) 06/30/22 18:50 Alkaline Phosphatase 99 U/L (34-104) 06/30/22 18:50 Total Creatine Kinase 42 U/L (30-223) 06/30/22 18:50 Total Protein 6.6 gm/dl (6.0-8.3) 06/30/22 18:50 Albumin 3.9 gm/dl (3.4-5.0) 06/30/22 18:50 Globulin 2.7 gm/dl (2.5-4.0) 06/30/22 18:50 Albumin/Globulin Ratio 1.4 (0.9-2) 06/30/22 18:50 Lipase 18 U/L (11-82) 06/30/22 18:50 Ur Random Sodium 39 mmol/L 06/30/22 20:58 SARS-CoV-2, RNA, NAAT NEGATIVE (NEGATIVE) 06/30/22 20:58 Code Status & VTE Plan VTE Prophylaxis Plan VTE Prophylaxis will be ordered: Yes PG Care Time/CCT Total # of Minutes Spent Total Time Spent with Patient: Total time spent is greater than 50% in coordination of care (as documented) at patient's floor/unit and/or counseling patient: Coding Level of Care Code 62941 Initial Inpt Care Lvl 3 Diagnoses UTI (urinary tract infection) N39.0 Hematuria R31.9 CKD (chronic kidney disease) N18.9 Left-sided weakness R53.1 CAD (coronary artery disease) I25.10 Coronary Disease-Associated Artery/Lesion type: [place] artery [place] vs. transplanted heart: [place] heart Associated angina: without angina Orthostatic hypotension I95.1 Controlled type 2 diabetes mellitus with chronic kidney disease E11.22 Hypertension I10 Hypothyroidism E03.9 (1) CAD (coronary artery disease) Coronary Disease-Associated Artery/Lesion type: [place] artery [place] vs. transplanted heart: [place] heart Associated angina: without angina Qualified Code(s): I25.10 - Atherosclerotic heart disease of [place] coronary artery without angina pectoris
[2022-06-30] MEDS ORDERED: CARBOHYDRATES FOR HYPOGLYCEMIA PO PRN (23:10)
[2022-06-30] MEDS ORDERED: ACETAMINOPHEN 325 MG TAB PO PRN (23:10)
[2022-06-30] MEDS ORDERED: GLUCOSE 40% GEL 15 GM TUBE PO PRN (23:10)
[2022-06-30] MEDS ORDERED: GLUCOSE 10 TAB/TUBE PO PRN (23:10)
[2022-06-30] MEDS ORDERED: GLUCAGON FOR INJ 1 MG VIAL SQ PRN (23:10)
[2022-06-30] MEDS ORDERED: DEXTROSE 50% 50 ML SYRINGE IV PRN (23:10)
[2022-06-30] MEDS ORDERED: ONDANSETRON INJ 2 MG/ML 2 ML VIAL IV PRN (23:10)
[2022-06-30] MEDS: INSULIN ASPART PER UNIT SC SCH (23:48)
[2022-06-30] MEDS: Patient's HEIGHT &/or WEIGHT Needed SCH (23:51)
[2022-07-01 00:06] LABS: Creatine Kinase 42 U/L (30-223); Phosphorus 4.1 mg/dl (2.5-4.9)
[2022-07-01] MEDS: LACTATED RINGER'S 1,000 ML IV SCH ×2 (00:12→12:56)
[2022-07-01] MEDS: MELATONIN 3 MG TAB PO PRN ×2 (00:12→21:25)
[2022-07-01] MEDS: BRIMONIDINE TARTRATE 0.2% 5ML OP SCH ×3 (00:15→15:35)
[2022-07-01] MEDS: SENNA 8.6 MG TAB PO PRN ×2 (00:16→15:01)
[2022-07-01] MEDS: METOPROLOL TARTRATE 25 MG TAB PO SCH ×3 (00:17→21:25)
[2022-07-01] MEDS: CLOPIDOGREL BISULFATE 75 MG TAB PO SCH ×2 (00:17→21:25)
[2022-07-01] MEDS: FINASTERIDE 5 MG TAB PO SCH ×2 (00:18→21:25)
[2022-07-01] MEDS: LEVOTHYROXINE SODIUM 50 MCG TABLET PO SCH (05:40)
[2022-07-01] MEDS: FLUDROCORTISONE ACETATE 0.1 MG TAB PO SCH (07:47)
[2022-07-01] MEDS: FOLIC ACID 400 MCG TAB PO SCH (07:50)
[2022-07-01] MEDS: ASPIRIN 81 MG ECTAB PO SCH (07:50)
[2022-07-01] MEDS: PRAVASTATIN SOD 10 MG TAB PO SCH (07:51)
[2022-07-01 08:59] LABS: Albumin Level 3.4 gm/dl (3.4-5.0); BUN Creatinine Ratio 15.7 (10-20); Bilirubin Direct 0.1 mg/dl (0-0.2); Bilirubin,Total 0.5 mg/dl (0.2-1.0); Calcium 8.6 mg/dl (8.5-10.1); Creatinine Clr Calc Pharmacy 31.7 ml/min; Est GFR (African American) 35.9 ml/min; Potassium 3.3 mmol/L (3.5-5.1); Total Protein 5.9 gm/dl (6.0-8.3)
[2022-07-01] MEDS: INSULIN ASPART PER UNIT SC SCH ×4 (09:02→21:20)
[2022-07-01 09:09] LABS: Basophils # (auto) 0.04 K/uL (0-0.2); Basophils % (auto) 0.6 %; Eosinophils # (auto) 0.25 K/uL (0-0.50); Eosinophils % (auto) 3.8 %; Hemoglobin 8.9 g/dl (14.0-18.0); Immature Granulocytes # (auto) 0.41 K/uL (0.00-0.02); Immature Granulocytes % (auto) 6.3 %; Lymphocytes # (auto) 1.12 K/uL (1.2-3.4); Lymphocytes % (auto) 17.2 %; Mean Corpuscular Hemoglobin 29.8 pg (25.0-34.0); Mean Corpuscular Volume 90.3 fL (80.0-100.0); Mean Platelet Volume 10.7 fL (9.4-12.4); Monocytes # (auto) 1.45 K/uL (0.24-0.82); Monocytes % (auto) 22.2 %; Neutrophils # (auto) 3.26 K/uL (1.4-6.5); Neutrophils % (auto) 49.9 %; Platelet Count 144 K/uL (130-400); RBC Morphology Unremarkable; Red Blood Count 2.99 M/uL (4.63-6.08); White Blood Count 6.53 K/ul (4.8-10.8)
[2022-07-01] MEDS ORDERED: POTASSIUM CHLORIDE CRTAB 20 MEQ TABCR PO STA (09:22)
--- NOTE | 2022-07-01 11:26 | Ultrasound Report ---
US renal/blad retro comp CLINICAL HISTORY: worsening renal function. COMPARISON: 06/29/2015 TECHNIQUE: Multiple grayscale and color images of the kidneys and bladder. FINDINGS: Right kidney: The kidney is normal in size and echogenicity. There is no evidence for renal calculus or hydronephrosis. There are multiple renal cysts present, the largest measuring 4.9 cm. There is no evidence for solid renal mass. There is no evidence for medical renal disease. The kidney measures 11 .6 cm in greatest length. Left kidney: The kidney is normal in size and echogenicity. There is no evidence for renal calculus o r hydronephrosis. Multiple renal cysts are present, the largest measuring 5.5 cm. There is no evidenc e for solid renal mass. There is no evidence for medical renal disease. The kidney measures 12.1 cm i n greatest diameter. Bladder: Interiano catheter is in place. IMPRESSION: 1. Bilateral renal cysts are again seen. No further follow-up is necessary for these benign findings. 2. Otherwise, essentially negative ultrasound of the kidneys with no evidence for hydronephrosis. ACT 112: Negative or not required by law. Electronically signed by: Gianfranco Mendoza M.D. 07/01/2022 11:23 AM
[2022-07-01] MEDS: CEFEPIME 1,000 MG in SYRINGE 0 ML IV SCH ×2 (11:29→22:43)
--- NOTE | 2022-07-01 12:07 | Hospitalist Progress Note ---
Date of Service July 01, 2022 Assessment & Plan (1) UTI (urinary tract infection): Plan: Urine culture from 06/28/22 positive for Psuedomonas and enterococcus. Patient with indwelling Hollins catheter in place, recent cystoscopy performed as well. Hollins catheter changed in the ER. Initially some concern for patient's prolonged QT-interval and use of Ciprofloxacin. Currently on intravenous cefepime. He is allergic to penicillin therapy (2) Hematuria: Plan: Patient with recent hematuria. Chronic hollins in place. Had recent cytoscopy. Continue Finasteride (3) CKD (chronic kidney disease): Plan: Patient with CKD-III, progression of renal dysfunction following CABG and MICU stay. Patient had post-operative hypotension requiring pressors/ionotropes and acute blood loss anemia requiring transfusion at that time. Suspect that 2.4 may be near patients new baseline Cr. Renal US pending. Avoid nephrotoxic agents (4) Left-sided weakness: Plan: Patient reports ongoing left sided weakness x 2 weeks. He had a CT of the head during last ER visit which was negative for acute hemorrhage. Check MRI brain if PPM compatible. 2D echo with bubble study. Continue ASA ,Plavix, Pravastatin. (5) CAD (coronary artery disease): Plan: s/p CABG x 3V performed at [facility] on 05/23/22. Patient denies chest pain. -Continue ASA, Plavix, Metoprolol, Pravastatin (6) Orthostatic hypotension: Plan: Stable. Continue Fludrocortisone 0.1mg po daily (7) Controlled type 2 diabetes mellitus with chronic kidney disease: Plan: Chronic. Moderately well controlled on Trulicity. Last AIC=7.6 on 03/12/22. ADA diet. ISS. (8) Hypertension: Plan: med management as needed. Monitor BP (9) Hypothyroidism: Plan: Chronic. TSH WNL -Continue Synthroid Ppx - SCD Code - Full Plan eventual discharge to home Admission and Anticipated Discharge Date Admission Date: June 30, 2022 Subjective Alert and oriented. No complaints. Creatinine has improved to 1.9. Potassium is mildly low and replacement ordered. He is concerned about the MRI scan because he has an underlying pacemaker. Compatibility will be checked before brain MRI is undertaken. He is currently on cefepime. Pseudomonas and Enterococcus isolated in the urine. Hollins catheter was changed in the ED. Review of Systems Review of Systems: Constitutional-no fever or chills ENT-no blurred vision, no double vision, no epistaxis, no sore throat Respiratory-no cough, no wheezing, no shortness of breath Cardiac-no palpitations, no chest pain, no syncope GI-no nausea, vomiting, diarrhea, melena, hematochezia - chronic indwelling hollins. Musculoskeletal-no joint pain, no muscle tenderness Skin-no bruising, no rashes, no pruritus Neuro- left sided weakness but chronic Psych-no depression, no anxiety Physical Exam Physical Exam: General-alert and oriented x3, no fevers, no chills HEENT-head atraumatic and normocephalic, TMs intact bilaterally, pupils equal and reactive to light, extraocular muscles intact Neck-no lymphadenopathy or thyromegaly, trachea midline Chest-clear to auscultation percussion. No rales wheezing or rhonchi Cardiac-regular rate and rhythm, normal S1 and S2, no murmurs Abdomen-normal bowel sounds, nontender, no hepatosplenomegaly Extremities-no cyanosis, clubbing, or edema Neuro-cranial nerves II through XII intact, motor and sensory function within normal limits, strength symmetrical , no focal deficits Psych-normal affect, normal mood Results & Data Results & Data ([facility]) Vital Signs (Past 12 Hours) Vital Signs Temp Pulse Resp BP Pulse Ox O2 Del Method 07/01/22 07:30 36.6 C 69 18 144/74 H 96 Room Air Laboratory Results 07/01/22 07:51 07/01/22 07:51 PG Care Time/CCT Total # of Minutes Spent Total Time Spent with Patient: Total time spent is greater than 50% in coordination of care (as documented) at patient's floor/unit and/or counseling patient: Coding Level of Care Code 99691 Subseq Hosp Care Lvl 3 Diagnoses UTI (urinary tract infection) N39.0 Hematuria R31.9 CKD (chronic kidney disease) N18.9 Left-sided weakness R53.1 CAD (coronary artery disease) I25.10 Associated angina: without angina Coronary Disease-Associated Artery/Lesion type: [place] artery [place] vs. transplanted heart: [place] heart Orthostatic hypotension I95.1 Controlled type 2 diabetes mellitus with chronic kidney disease E11.22 Hypertension I10 Hypothyroidism E03.9 (1) CAD (coronary artery disease) Associated angina: without angina Coronary Disease-Associated Artery/Lesion type: [place] artery [place] vs. transplanted heart: [place] heart Qualified Code(s): I25.10 - Atherosclerotic heart disease of [place] coronary artery without angina pectoris
--- NOTE | 2022-07-01 13:22 | XCELERA ---
[id number]
--- NOTE | 2022-07-01 13:36 | Electrocardiogram Report ---
Test Reason : Blood Pressure : / mmHG Vent. Rate : 070 BPM Atrial Rate : 277 BPM P-R Int : 136 ms QRS Dur : 160 ms QT Int : 462 ms P-R-T Axes : 000 179 114 degrees QTc Int : 498 ms Poor data quality, interpretation may be adversely affected AV dual-paced rhythm Biventricular pacemaker detected Abnormal ECG When compared with ECG of 28-JUN-2022 16:08, No significant change was found Confirmed by Dick Mohan ([id number]) on 07/01/2022 1:36:42 PM Referred By: Provider Outside Confirmed By:Dick Mohan
[2022-07-01] MEDS ORDERED: CEFEPIME 1,000 MG in SYRINGE 0 ML IV SCH (18:00)
[2022-07-02] MEDS: LEVOTHYROXINE SODIUM 50 MCG TABLET PO SCH (06:06)
[2022-07-02 06:40] LABS: Estimated Average Glucose 160 mg/dl; Hemoglobin A1C 7.2 % (4.5-5.6)
[2022-07-02] MEDS: INSULIN ASPART PER UNIT SC SCH ×4 (08:27→21:09)
[2022-07-02] MEDS: FOLIC ACID 400 MCG TAB PO SCH (08:28)
[2022-07-02] MEDS: PRAVASTATIN SOD 10 MG TAB PO SCH (08:28)
[2022-07-02] MEDS: FLUDROCORTISONE ACETATE 0.1 MG TAB PO SCH (08:28)
[2022-07-02] MEDS: METOPROLOL TARTRATE 25 MG TAB PO SCH ×2 (08:28→20:48)
[2022-07-02] MEDS: BRIMONIDINE TARTRATE 0.2% 5ML OP SCH ×2 (08:28→17:30)
[2022-07-02] MEDS: ASPIRIN 81 MG ECTAB PO SCH (08:28)
[2022-07-02 08:43] LABS: Hematocrit (blood only) 29.2 % (40.1-51.0); Hemoglobin 9.7 g/dl (14.0-18.0); Mean Corpuscular Hemoglobin 29.8 pg (25.0-34.0); Mean Corpuscular Hgb Conc 33.2 g/dL (32.0-36.0); Mean Corpuscular Volume 89.8 fL (80.0-100.0); Platelet Count 152 K/uL (130-400); RDW Coefficient of Variation 13.9 % (11.5-14.5); RDW Standard Deviation 45.4 fL (36.4-46.3); Red Blood Count 3.25 M/uL (4.63-6.08); White Blood Count 6.82 K/ul (4.8-10.8)
[2022-07-02 09:02] LABS: BUN Creatinine Ratio 13.4 (10-20); Basophils # (auto) 0.05 K/uL (0-0.2); Basophils % (auto) 0.7 %; Calcium 8.8 mg/dl (8.5-10.1); Creatinine Clr Calc Pharmacy 33.7 ml/min; Eosinophils # (auto) 0.18 K/uL (0-0.50); Eosinophils % (auto) 2.6 %; Est GFR (African American) 38.7 ml/min; Est GFR (Non-African American) 33.4 ml/min; Immature Granulocytes # (auto) 0.37 K/uL (0.00-0.02); Immature Granulocytes % (auto) 5.4 %; Lymphocytes # (auto) 0.91 K/uL (1.2-3.4); Lymphocytes % (auto) 13.3 %; Monocytes # (auto) 1.44 K/uL (0.24-0.82); Monocytes % (auto) 21.1 %; Neutrophils # (auto) 3.87 K/uL (1.4-6.5); Neutrophils % (auto) 56.9 %; Potassium 3.5 mmol/L (3.5-5.1)
[2022-07-02] MEDS: CEFEPIME 1,000 MG in SYRINGE 0 ML IV SCH (12:14)
[2022-07-02] MEDS: CIPROFLOXACIN 250 MG TAB PO SCH ×2 (14:04→20:49)
--- NOTE | 2022-07-02 15:08 | Urology Consultation ---
Date of Consultation July 02, 2022 Assessment & Plan (1) Hematuria: (2) UTI (urinary tract infection): 82 yo M with multiple comorbidities admitted for hematuria, left sided weakness, and UTI. 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 - Hematuria likely multifactorial in the setting of recent cystoscopy, UTI, enlarged prostate, hx prostate ca s/p radiation, on anticoagulation. - Afebrile, lab work reviewed - creatinine improving - 1.86, WBC 6.82, Hgb stable - 9.7. Continue to trend labs, H/H. - Urine culture 06/28 grew out Pseudomonas and Enterococcus - initially treated with IV Cefepime --> PO Cipro. - Interiano catheter intact and draining appropriately with pink to holguin red ur ine, with small passable clot noted in tubing. - Maintain Interiano catheter at present. Okay to gently hand irrigate prn for clot retention, suprapubic pain. - Continue Finasteride. - Alpha kelsey on hold due to orthostatic hypotension. - No acute intervention planned at this time. - Continue supportive care, antibiotics, and medical management per primary service. - Urology with follow. History of Present Illness Reason for Consultation: Hematuria Requesting Physician: Dr. Talamantes Attending Physician: Sukh Talamantes MD History of Present Illness 82 yo M with past medical history of CAD, hypertension, hyperlipidemia, COPD, diabetes, CKD stage III, prostate cancer s/p radiation, and atrial fibrillation. Patient is known to the Urology service, follows with Dr. Sandra for history of recurrent prostate cancer s/p radiation. He was recently seen in the outpatient clinic on 06/27/22 for cystoscopy. His Interiano catheter was replaced after failing voiding trial. Of note, he was admitted to [facility] from 05/23/22 - 05/30/22 for CABG x 3 and placement of atrial and biventricular pacemaker.Per admission notes, he had a complicated post-operative course including cardiogenic shock requiring pressor/ionotropic support, acute blood loss anemia and coagulopathy, ileus, critical illness myopathy and acute urinary retention requiring placement of Interiano catheter. He initially presented to [facility] ED on 06/28/22 with hematuria that started after the cystoscopy as well as left sided weakness that occurred 2 weeks prior. Patient preferred to return home without further stroke work-up. He returned to ER on 06/30/22 with persistent hematuria with passage of clots as well as some ongoing left sided weakness. He was treated with IV fluids and Cefepime. He was admitted to hospital medicine for further evaluation. Urology service consulted for hematuria. Chart review: Afebrile Lab work - Creatinine 1.86 WBC 6.82 Hgb 9.7 Urine culture 06/28 grew out Pseudomonas and Enterococcus On PO Ciprofloxacin Imaging: WING - IMPRESSION: 1. Bilateral renal cysts are again seen. No further follow-up is necessary for these benign findings. 2. Otherwise, essentially negative ultrasound of the kidneys with no evidence for hydronephrosis. Patient seen and examined at bedside. He is sleeping on arrival, arouses to speech. No abdominal or suprapubic pain. Tolerating Interiano catheter. Interiano intact and draining variable pink to light holguin red urine, with small clot noted in tubing. He reports hematuria intermittently occurring since the cystoscopy. No nausea or vomiting. No fever or chills. He is on aspirin and Plavix. Allergies Allergy/AdvReac Type Severity Reaction Status Date / Time oxycodone Allergy Intermediate Hallucinati Verified 06/30/22 21:22 ng tramadol Allergy Intermediate HALLUCINATI Verified 06/30/22 21:22 ONS gluten Allergy Mild GI SYMPTOMS Verified 06/30/22 21:22 lactose Allergy Mild GI SYMPTOMS Verified 06/30/22 21:22 Penicillins Allergy Mild RASH Verified 06/30/22 21:22 Sulfa (Sulfonamide Allergy Mild RASH Verified 06/30/22 21:22 Antibiotics) cyclobenzaprine Allergy Unknown Unknown Verified 06/30/22 23:41 Qzwweig-NMC-AxY Reductase AdvReac Intermediate MUSCLE Verified 06/30/22 21:22 Inhibitor WEAKNESS, [Gtdbbod-Teq-Yfq Reductase BRAIN FOG Inhibitor] Home Medications Medication Instructions Recorded Confirmed Type aspirin 81 mg tablet,delayed 81 mg PO QAM 10/08/20 06/30/22 History release brimonidine 0.2 % eye drops 1 drp ophthalmic (eye) BID #15 mL 11/23/21 06/30/22 Rx levothyroxine 50 mcg tablet 50 mcg PO QAM #90 tabs 12/12/21 06/30/22 Rx (Synthroid) finasteride 5 mg tablet (Proscar) 5 mg PO HS #90 tabs 12/26/21 06/30/22 Rx clopidogrel 75 mg tablet (Plavix) 75 mg PO PM #90 tabs 02/13/22 06/30/22 Rx fludrocortisone 0.1 mg tablet 0.1 mg PO DAILY #30 tabs 02/22/22 06/30/22 Rx folic acid 400 mcg tablet 0.4 mg PO DAILY 02/22/22 06/30/22 History pravastatin 10 mg tablet 10 mg PO DAILY #90 tabs 03/29/22 06/30/22 Rx blood sugar diagnostic (FreeStyle #300 ea 04/09/22 06/30/22 Rx Lite Strips) lancets 28 gauge (FreeStyle #300 ea 04/09/22 06/30/22 Rx Lancets) furosemide 40 mg tablet 40 mg PO DAILY #30 tabs 06/13/22 06/30/22 Rx potassium chloride 20 mEq 20 meq PO DAILY #30 tabs 06/13/22 06/30/22 Rx tablet,extended release dulaglutide 1.5 mg/0.5 mL 1.5 mg subcut WK 06/30/22 06/30/22 History [facility] metoprolol tartrate 25 mg tablet 25 mg PO Q12 06/30/22 06/30/22 History Patient History Medical History Arthritis Carotid artery stenosis Chronic obstructive pulmonary disease no inhalers currently "MILD" Diabetes mellitus, type 2 GERD (gastroesophageal reflux disease) History of asthma History of prostate cancer treated with radiation. no surgery. Hypercholesteremia Hypertension WAS ON BP MEDS>FELT DIZZY/SYNCOPAL EPISODES Hypothyroidism Pancreatic tumor ?TUMOR/CYST> FOUND ON EXAM (GETS ULTRASOUNDS/MRI OR CT SCANS YEARLY TO MONITOR) Spinal stenosis of lumbar region Stage III chronic kidney disease Syncope ~2-3 years ago -- has a loop recorder in place TIA (transient ischemic attack) (~2001) CONT. LEFT SIDE WEAKNEES WITH TOE DROP OCCAS.>2001 *REASON FOR PLAVIX Surgical History H/O colonoscopy with polypectomy H/O hernia repair as a toddler History of cataract surgery LEFT History of esophagogastroduodenoscopy (EGD) History of knee replacement RT History of loop recorder in place currently. follows with Dr. Leung. History of tonsillectomy and adenoidectomy Hx of cholecystectomy S/P lumbar laminectomy S/P triple vessel bypass Drew teeth removed Family History Brother Colon cancer Prostate cancer Grandfather Rectal cancer Unknown Heart disease Cancer Hypertension Mother Diabetes Congestive heart failure Grandmother (Paternal) Stroke Grandfather (Maternal) Myocardial infarction Other No family history of adverse response to anesthesia Denies family history of Ovarian cancer Breast cancer Social History Smoking Status: Never smoker Tobacco Type: Pipe Second Hand Exposure: No; Hx Alcohol Use: No Hx Substance Use: No Preferred Language: Polish Communication Ability: Effective Visual Impairment: No Limitations Hearing Ability: Use of Hearing Aid Director Service Required: No Beliefs That Will Affect Care: None marital status: Current Living Situation: Spouse current occupational status: retired How many Children do You have: 3 Feels Safe at Home: Yes Childhood Exposure to Second-Hand Smoke: Yes Dental Care, Regularly: Yes Physical Activity Frequency: Daily Seatbelt Use: always Sunscreen Use: Yes Assistive Devices: Walker Review of Systems Review of Systems: All systems reviewed & are unremarkable except as noted in HPI & below Physical Exam Constitutional: well developed and well nourished; no acute distress and not ill appearing Eyes: no scleral abnormality Neck: normal visual inspection Respiratory: normal respiratory effort and able to speak in complete sentences; no respiratory distress and no labored breathing Cardiovascular: Extremities: no pedal edema Gastrointestinal (Abdomen): Inspection/Auscultation: abdomen normal to inspection; abdomen not distended Percussion/Palpation: abdomen soft; abdomen nontender and no guarding Musculoskeletal: Extremities: extremities normal to inspection Skin: no visible skin rashes Neurologic: moves all extremities and awake Psychiatric: Orientation: alert, oriented to person and cooperative Eye Contact: good eye contact Genitourinary: Interiano intact and draining pink to light holguin red urine during exam, small clot noted in tubing which easily passed through Results & Data ([facility]) Vital Signs (Past 12 Hours) Vital Signs Temp Pulse Pulse Resp BP Pulse Ox O2 Del Method 07/02/22 14:55 36.6 C 70 24 160/78 H 98 Room Air 08/15/22 10:26 123/74 07/02/22 07:45 Room Air 07/02/22 08:54 36.6 C 70 18 171/82 H 96 07/02/22 08:07 36.6 C 70 18 171/82 H 96 Room Air PG Care Time/CCT Total # of Minutes Spent Total Time Spent with Patient: Total time spent is greater than 50% in coordination of care (as documented) at patient's floor/unit and/or counseling patient: Coding Level of Care Code 16298 Initial Inpt Care Lvl 2 Diagnoses Hematuria R31.9 UTI (urinary tract infection) N39.0
--- NOTE | 2022-07-02 18:12 | Hospitalist Progress Note ---
Date of Service July 02, 2022 Assessment & Plan (1) UTI (urinary tract infection): Plan: Somewhat uncertain if true UTI; symptoms difficult to ascertain; hematuria per se is not symptom unless hemorrhagic cystitis and in my view nothing to suggest that; however, benefit of doubt and treatswitch to p.o. Cipro; watch QTC (past noted, paced rhythm) (2) Hematuria: Plan: Patient with recent hematuria. Chronic hollins in place. Had recent cytoscopy. Continue Finasteride ; Urology input obtained and noted . (3) CKD (chronic kidney disease): Plan: Patient with CKD-III, progression of renal dysfunction following CABG and MICU stay. Patient had post-operative hypotension requiring pressors/ionotropes and acute blood loss anemia requiring transfusion at that time; at present parameters betterfollow (4) Left-sided weakness: Plan: Symptoms somewhat not typical of cerebrovascular pacemaker not compatibleobserve; he reports weakness better (5) CAD (coronary artery disease): Plan: s/p CABG x 3[place] [facility] [place]. Patient denies chest pain. -Continue ASA, Plavix, Metoprolol, Pravastatinhowever will need to assess role of dual antiplatelet (6) Orthostatic hypotension: Plan: May have been post prolonged course; at present blood pressure trending up; it appears he was also on Lasix and amlodipine at some pointregimen somewhat unclear; stop fludrocortisone and observe (7) Controlled type 2 diabetes mellitus with chronic kidney disease: Plan: Chronic. Moderately well controlled on Trulicity. Last AIC=7.6 on 03/12/22. ADA diet. ISS. (8) Hypertension: Plan: As noted, at some point he was on amlodipine but seems to have dropped off; stop fludrocortisone, hold off starting amlodipine, hold off starting Lasixfollow (9) Hypothyroidism: Plan: Chronic. TSH WNL -Continue Synthroid Plan eventual discharge to home Admission and Anticipated Discharge Date Admission Date: June 30, 2022 Subjective Follow-up presentation with hematuria, somewhat recent left-sided weaknessweakness better; Hollins still has bloodstained urine Physical Exam Physical Exam: Constitutional and general: No acute distress, looks biologic age Head and face: No puffiness, atraumatic Eyes: No scleral icterus, extraocular movements normal Neck: Supple, no JVD Musculoskeletal: No acute joint swelling, no bony abnormalities Skin/dermatologic/integument: No rash, no purpura Hematologic and lymphatic: pallor +, no petechia Gastrointestinal/abdomen: Nondistended, soft, nonacute Neurologic: Cranial nerves intact, nonfocal Psychiatry: Awake, alert, pleasant, communicative Cardiovascular: Heart rhythm regular, no rub, systolic murmur, no gallop Respiratory: Chest movements equal, no use of accessory muscles, no adventitious sounds Extremities: No edema, no cyanosis Results & Data Results & Data ([facility]) Vital Signs (Past 12 Hours) Vital Signs Temp Pulse Pulse Resp BP Pulse Ox O2 Del Method 07/02/22 14:55 36.6 C 70 24 160/78 H 98 Room Air 07/02/22 10:26 123/74 07/02/22 07:45 Room Air 07/02/22 08:54 36.6 C 70 18 171/82 H 96 07/02/22 08:07 36.6 C 70 18 171/82 H 96 Room Air Laboratory Results Laboratory Results - last 24 hr 07/01/22 07/01/22 07/02/22 07:51 20:48 08:05 WBC RBC Hgb Hct MCV MCH MCHC RDW Std Deviation RDW Coeff of Vinny Plt Count MPV Immature Gran % (Auto) Neut % (Auto) Lymph % (Auto) [place] % (Auto) Eos % (Auto) Baso % (Auto) Neut # (Auto) Lymph # (Auto) [place] # (Auto) Eos # (Auto) Baso # (Auto) Immature Gran # (Auto) Sodium Potassium Chloride Carbon Dioxide Anion Gap BUN Creatinine Est Cr Clr Drug Dosing Est GFR ( Amer) Est GFR (Non-Af Amer) BUN/Creatinine Ratio Glucose POC Glucose 114 H 149 H Estimat Average Glucose 160 Hemoglobin A1c 7.2 H Calcium 07/02/22 07/02/22 07/02/22 08:23 08:23 12:12 WBC 6.82 RBC 3.25 L Hgb 9.7 L Hct 29.2 L MCV 89.8 MCH 29.8 MCHC 33.2 RDW Std Deviation 45.4 RDW Coeff of Vinny 13.9 Plt Count 152 MPV 10.0 Immature Gran % (Auto) 5.4 Neut % (Auto) 56.9 Lymph % (Auto) 13.3 [place] % (Auto) 21.1 Eos % (Auto) 2.6 Baso % (Auto) 0.7 Neut # (Auto) 3.87 Lymph # (Auto) 0.91 L [place] # (Auto) 1.44 H Eos # (Auto) 0.18 Baso # (Auto) 0.05 Immature Gran # (Auto) 0.37 H Sodium 139 Potassium 3.5 Chloride 103 Carbon Dioxide 29 Anion Gap 7 BUN 25 H Creatinine 1.86 H Est Cr Clr Drug Dosing 33.7 Est GFR ( Amer) 38.7 Est GFR (Non-Af Amer) 33.4 BUN/Creatinine Ratio 13.4 Glucose 136 H POC Glucose 184 H Estimat Average Glucose Hemoglobin A1c Calcium 8.8 07/02/22 17:10 WBC RBC Hgb Hct MCV MCH MCHC RDW Std Deviation RDW Coeff of Vinny Plt Count MPV Immature Gran % (Auto) Neut % (Auto) Lymph % (Auto) [place] % (Auto) Eos % (Auto) Baso % (Auto) Neut # (Auto) Lymph # (Auto) [place] # (Auto) Eos # (Auto) Baso # (Auto) Immature Gran # (Auto) Sodium Potassium Chloride Carbon Dioxide Anion Gap BUN Creatinine Est Cr Clr Drug Dosing Est GFR ( Amer) Est GFR (Non-Af Amer) BUN/Creatinine Ratio Glucose POC Glucose 117 H Estimat Average Glucose Hemoglobin A1c Calcium PG Care Time/CCT Total # of Minutes Spent Total Time Spent with Patient: Total time spent is greater than 50% in coordination of care (as documented) at patient's floor/unit and/or counseling patient: Coding Level of Care Code 33083 Subseq Hosp Care Lvl 2 Diagnoses UTI (urinary tract infection) N39.0 Hematuria R31.9 CKD (chronic kidney disease) N18.9 Left-sided weakness R53.1 CAD (coronary artery disease) I25.10 Coronary Disease-Associated Artery/Lesion type: [place] artery [place] vs. transplanted heart: [place] heart Associated angina: without angina Orthostatic hypotension I95.1 Controlled type 2 diabetes mellitus with chronic kidney disease E11.22 Hypertension I10 Hypothyroidism E03.9 (1) CAD (coronary artery disease) Coronary Disease-Associated Artery/Lesion type: [place] artery [place] vs. transplanted heart: [place] heart Associated angina: without angina Qualified Code(s): I25.10 - Atherosclerotic heart disease of [place] coronary artery without angina pectoris
[2022-07-02] MEDS: FINASTERIDE 5 MG TAB PO SCH (20:48)
[2022-07-02] MEDS: CLOPIDOGREL BISULFATE 75 MG TAB PO SCH (20:48)
[2022-07-02] MEDS: DOCUSATE SODIUM 100 MG CAP PO SCH (20:48)
[2022-07-02] MEDS: MELATONIN 3 MG TAB PO PRN (21:09)
[2022-07-03] MEDS: LEVOTHYROXINE SODIUM 50 MCG TABLET PO SCH (05:23)
[2022-07-03] MEDS: PRAVASTATIN SOD 10 MG TAB PO SCH (08:14)
[2022-07-03] MEDS: CIPROFLOXACIN 250 MG TAB PO SCH ×2 (08:14→21:13)
[2022-07-03] MEDS: METOPROLOL TARTRATE 25 MG TAB PO SCH ×2 (08:14→21:13)
[2022-07-03] MEDS: ASPIRIN 81 MG ECTAB PO SCH (08:15)
[2022-07-03] MEDS: DOCUSATE SODIUM 100 MG CAP PO SCH ×2 (08:15→21:12)
[2022-07-03] MEDS: BRIMONIDINE TARTRATE 0.2% 5ML OP SCH ×2 (08:15→17:17)
[2022-07-03] MEDS: FOLIC ACID 400 MCG TAB PO SCH (08:15)
[2022-07-03] MEDS: INSULIN ASPART PER UNIT SC SCH ×4 (08:33→21:11)
[2022-07-03 08:49] LABS: Hematocrit (blood only) 28.5 % (40.1-51.0); Mean Corpuscular Hemoglobin 31.1 pg (25.0-34.0); Mean Corpuscular Hgb Conc 35.1 g/dL (32.0-36.0); Mean Corpuscular Volume 88.5 fL (80.0-100.0); Mean Platelet Volume 9.9 fL (9.4-12.4); Platelet Count 143 K/uL (130-400); RDW Standard Deviation 45.4 fL (36.4-46.3); Red Blood Count 3.22 M/uL (4.63-6.08); White Blood Count 7.75 K/ul (4.8-10.8)
--- NOTE | 2022-07-03 09:00 | Urology Progress Note ---
Date of Service July 03, 2022 Assessment & Plan (1) Hematuria: (2) UTI (urinary tract infection): Plan: 82 yo M with multiple comorbidities admitted for hematuria, left sided weakness, and UTI. - Plan of care reviewed with Dr. Roberts. - Hematuria likely due to multiple factors - recent cystoscopy, UTI, enlarged prostate, hx prostate ca s/p radiation, anticoagulation. - Afebrile, lab work reviewed - creatinine improving - 1.64, WBC 7.75, Hgb stable - 10.0. Continue to trend labs, H/H. - Urine culture 06/28 grew out Pseudomonas and Enterococcus - initially treated with IV Cefepime --> PO Cipro. - Interiano catheter intact and draining appropriately - urine appears to be clearing today, pink tinged. - Maintain Interiano catheter at present. Okay to gently hand irrigate prn for clot retention, suprapubic pain. - If ready for discharge now, then recommend maintain catheter upon discharge to follow-up with urology for voiding trial. - If he stays another 1-2 days and urine remains clear to pink, then voiding trial inpatient is reasonable. Replace if unable to void. - Continue Finasteride. - Alpha kelsey on hold due to hx of orthostatic hypotension. - No acute intervention planned at this time. - Continue supportive care, antibiotics, and medical management per primary service. - Will arrange f/u with our service outpatient. - will follow peripherally. Admission and Anticipated Discharge Date Admission Date: June 30, 2022 Subjective Patient seen and examined at bedside. Awake, alert and sitting up in bed. No acute issues overnight. No abdominal or suprapubic pain. Interiano intact and draining clear pink tinged urine. No nausea or vomiting. No fever or chills. Review of Systems Constitutional: as per Subjective / HPI Gastrointestinal: as per Subjective / HPI Genitourinary: + as per Subjective / HPI Physical Exam Constitutional: well developed and well nourished; no acute distress and not ill appearing Respiratory: normal respiratory effort and able to speak in complete sentences; no respiratory distress and no labored breathing Cardiovascular: Extremities: no pedal edema Gastrointestinal (Abdomen): Inspection/Auscultation: abdomen normal to inspection; abdomen not distended Percussion/Palpation: abdomen soft; abdomen nontender and no guarding Musculoskeletal: Extremities: extremities normal to inspection Skin: no visible skin rashes Neurologic: moves all extremities and awake Psychiatric: Orientation: alert, oriented to person and cooperative Genitourinary: Interiano intact and draining light pink urine, no clots noted Results & Data ([facility]) Vital Signs (Past 12 Hours) Vital Signs Temp Pulse Pulse Resp BP BP Pulse Ox 07/03/22 07:43 36.7 C 68 16 188/85 H 98 07/03/22 04:10 36.5 C 76 18 164/87 H 175/91 H 98 07/02/22 21:37 36.4 C L 70 18 126/74 99 O2 Del Method 07/03/22 07:43 Room Air 07/03/22 04:10 Room Air 07/02/22 21:37 Room Air PG Care Time/CCT Total # of Minutes Spent Total Time Spent with Patient: Total time spent is greater than 50% in coordination of care (as documented) at patient's floor/unit and/or counseling patient: Coding Level of Care Code 51722 Subseq Hosp Care Lvl 2 Diagnoses Hematuria R31.9 UTI (urinary tract infection) N39.0
[2022-07-03 09:15] LABS: Albumin Globulin Ratio 1.3 (0.9-2); Albumin Level 3.5 gm/dl (3.4-5.0); Bilirubin,Total 0.6 mg/dl (0.2-1.0); Calcium 8.8 mg/dl (8.5-10.1); Creatinine Clr Calc Pharmacy 38.3 ml/min; Est GFR (African American) 45.1 ml/min; Est GFR (Non-African American) 38.9 ml/min; Globulin 2.7 gm/dl (2.5-4.0); Magnesium 1.9 mg/dl (1.7-2.4); Phosphorus 3.5 mg/dl (2.5-4.9); Potassium 3.5 mmol/L (3.5-5.1); Total Protein 6.2 gm/dl (6.0-8.3)
[2022-07-03 09:27] LABS: Urea Nitrogen, Random Urine 587 mg/dL
[2022-07-03 09:33] LABS: Basophils # (auto) 0.05 K/uL (0-0.2); Basophils % (auto) 0.6 %; Eosinophils # (auto) 0.21 K/uL (0-0.50); Eosinophils % (auto) 2.7 %; Immature Granulocytes % (auto) 5.2 %; Lymphocytes # (auto) 0.93 K/uL (1.2-3.4); Monocytes # (auto) 1.78 K/uL (0.24-0.82); Neutrophils # (auto) 4.38 K/uL (1.4-6.5); Neutrophils % (auto) 56.5 %
--- NOTE | 2022-07-03 14:36 | Ultrasound Report ---
ULTRASOUND OF THE CAROTID ARTERIES CLINICAL HISTORY: Left-sided weakness. COMPARISON STUDY: Carotid artery ultrasound dated 12/18/2017 TECHNIQUE: Real-time, grayscale, and color Doppler sonography of the carotid arteries is performed. I mages are reviewed in the transverse and longitudinal planes. FINDINGS: The carotid arteries are patent bilaterally and demonstrate antegrade flow. There is moderate atheros clerotic plaque seen in the right carotid bulb. Mild plaque is seen on the left. Normal doppler arter ial waveforms are seen throughout. Velocity measurements are listed below. Common carotid peak systolic velocity (cm/sec): RIGHT: 81 LEFT: 97 ICA proximal peak systolic velocity (cm/sec): RIGHT: 117 LEFT: 64 ICA mid peak systolic velocity (cm/sec): RIGHT: 93 LEFT: 81 ICA distal peak systolic velocity (cm/sec): RIGHT: 55 LEFT: 59 ICA/CC peak systolic ratio: RIGHT: 1.4 LEFT: 0.8 Antegrade flow was shown in the vertebral arteries. The external carotid arteries are patent. IMPRESSION: 1. There is no sonographic evidence of hemodynamically significant stenosis in the right or left [place] arterial system. 2. Antegrade flow is shown in the vertebral arteries. ACT 112: Negative or not required by law. Electronically signed by: Gordy Dominguez M.D. 07/03/2022 2:35 PM
--- NOTE | 2022-07-03 17:18 | Hospitalist Progress Note ---
Date of Service July 03, 2022 Assessment & Plan (1) UTI (urinary tract infection): Plan: Somewhat uncertain if true UTI versus asymptomatic bacteriuria; symptoms difficult to ascertain; hematuria per se is not symptom unless hemorrhagic cystitis and in my view nothing to suggest that; however, benefit of doubt and treatswitch to p.o. Cipro; watch QTC (past noted, paced rhythm) (2) Hematuria: Plan: Better, urology input appreciated; they are at planning voiding trial (3) CKD (chronic kidney disease): Plan: Patient with CKD-III, progression of renal dysfunction following CABG and MICU stay. Patient had post-operative hypotension requiring pressors/ionotropes and acute blood loss anemia requiring transfusion at that time; at present parameters betterfollow (4) Left-sided weakness: Plan: Symptoms somewhat not typical of cerebrovascular etiology; MRI not feasible since pacemaker not compatible; carotid studies unremarkable; he reports weakness better overall since admissionobserve (5) CAD (coronary artery disease): Plan: s/p CABG x 3V performed at [facility] on 05/23/22. Patient denies chest pain. -Continue ASA, Plavix, Metoprolol, Pravastatinhowever will need to assess role of dual antiplatelet-according to cardiology note was related to carotid disease but none seen (6) Orthostatic hypotension: Plan: May have been post prolonged course; at present blood pressure trending up; it appears he was also on Lasix and amlodipine at some pointregimen somewhat unclear; stopped fludrocortisone -observe (7) Controlled type 2 diabetes mellitus with chronic kidney disease: Plan: Chronic. Moderately well controlled on Trulicity. Last AIC=7.6 on 03/12/22. ADA diet. ISS. (8) Hypertension: Plan: BP on high side; fludrocortisone just stopped; observe; as noted, at some point he was on amlodipine but seems to have dropped off; at present observe; also, hold off starting Lasixfollow (9) Hypothyroidism: Plan: Chronic. TSH WNL -Continue Synthroid Admission and Anticipated Discharge Date Admission Date: June 30, 2022 Subjective Follow-up of presentation with hematuriano new issues, urine clearer Physical Exam Physical Exam: Constitutional and general: No acute distress, looks biologic age Head and face: No puffiness, atraumatic Eyes: No scleral icterus, extraocular movements normal Neck: Supple, no JVD Musculoskeletal: No acute joint swelling, no bony abnormalities Skin/dermatologic/integument: No rash, no purpura Hematologic and lymphatic: pallor +, no petechia Gastrointestinal/abdomen: Nondistended, soft, nonacute Neurologic: Cranial nerves intact, nonfocal Psychiatry: Awake, alert, pleasant, communicative Cardiovascular: Heart rhythm regular, no rub, systolic murmur, no gallop Respiratory: Chest movements equal, no use of accessory muscles, no adventitious sounds Extremities: No edema, no cyanosis Results & Data Results & Data ([facility]) Vital Signs (Past 12 Hours) Vital Signs Temp Pulse Resp BP Pulse Ox O2 Del Method 07/03/22 15:25 36.7 C 69 14 147/79 H 99 Room Air 07/03/22 11:19 71 127/72 98 Room Air 07/03/22 07:43 36.7 C 68 16 188/85 H 98 Room Air Laboratory Results Laboratory Results - last 24 hr 06/30/22 07/02/22 07/02/22 20:58 17:10 20:44 WBC RBC Hgb Hct MCV MCH MCHC RDW Std Deviation RDW Coeff of Vinny Plt Count MPV Immature Gran % (Auto) Neut % (Auto) Lymph % (Auto) [place] % (Auto) Eos % (Auto) Baso % (Auto) Neut # (Auto) Lymph # (Auto) [place] # (Auto) Eos # (Auto) Baso # (Auto) Immature Gran # (Auto) Sodium Potassium Chloride Carbon Dioxide Anion Gap BUN Creatinine Est Cr Clr Drug Dosing Est GFR ( Amer) Est GFR (Non-Af Amer) POC Glucose 117 H 113 H Fasting Glucose Calcium Phosphorus Magnesium Total Bilirubin AST ALT Alkaline Phosphatase Total Protein Albumin Globulin Albumin/Globulin Ratio Ur Random Urea Nitrogn 587 07/03/22 07/03/22 07/03/22 08:21 08:35 08:35 WBC 7.75 RBC 3.22 L Hgb 10.0 L Hct 28.5 L MCV 88.5 MCH 31.1 MCHC 35.1 RDW Std Deviation 45.4 RDW Coeff of Vinny 14.0 Plt Count 143 MPV 9.9 Immature Gran % (Auto) 5.2 Neut % (Auto) 56.5 Lymph % (Auto) 12.0 [place] % (Auto) 23.0 Eos % (Auto) 2.7 Baso % (Auto) 0.6 Neut # (Auto) 4.38 Lymph # (Auto) 0.93 L [place] # (Auto) 1.78 H Eos # (Auto) 0.21 Baso # (Auto) 0.05 Immature Gran # (Auto) 0.40 H Sodium 139 Potassium 3.5 Chloride 103 Carbon Dioxide 30 Anion Gap 6 BUN 24 H Creatinine 1.64 H Est Cr Clr Drug Dosing 38.3 Est GFR ( Amer) 45.1 Est GFR (Non-Af Amer) 38.9 POC Glucose 134 H Fasting Glucose 139 H Calcium 8.8 Phosphorus 3.5 Magnesium 1.9 Total Bilirubin 0.6 AST 13 ALT 8 Alkaline Phosphatase 94 Total Protein 6.2 Albumin 3.5 Globulin 2.7 Albumin/Globulin Ratio 1.3 Ur Random Urea Nitrogn 07/03/22 11:59 WBC RBC Hgb Hct MCV MCH MCHC RDW Std Deviation RDW Coeff of Vinny Plt Count MPV Immature Gran % (Auto) Neut % (Auto) Lymph % (Auto) [place] % (Auto) Eos % (Auto) Baso % (Auto) Neut # (Auto) Lymph # (Auto) [place] # (Auto) Eos # (Auto) Baso # (Auto) Immature Gran # (Auto) Sodium Potassium Chloride Carbon Dioxide Anion Gap BUN Creatinine Est Cr Clr Drug Dosing Est GFR ( Amer) Est GFR (Non-Af Amer) POC Glucose 204 H Fasting Glucose Calcium Phosphorus Magnesium Total Bilirubin AST ALT Alkaline Phosphatase Total Protein Albumin Globulin Albumin/Globulin Ratio Ur Random Urea Nitrogn PG Care Time/CCT Total # of Minutes Spent Total Time Spent with Patient: Total time spent is greater than 50% in coordination of care (as documented) at patient's floor/unit and/or counseling patient: Coding Level of Care Code 86244 Subseq Hosp Care Lvl 2 Diagnoses UTI (urinary tract infection) N39.0 Hematuria R31.9 CKD (chronic kidney disease) N18.9 Left-sided weakness R53.1 CAD (coronary artery disease) I25.10 Coronary Disease-Associated Artery/Lesion type: [place] artery [place] vs. transplanted heart: [place] heart Associated angina: without angina Orthostatic hypotension I95.1 Controlled type 2 diabetes mellitus with chronic kidney disease E11.22 Hypertension I10 Hypothyroidism E03.9 (1) CAD (coronary artery disease) Coronary Disease-Associated Artery/Lesion type: [place] artery [place] vs. transplanted heart: [place] heart Associated angina: without angina Qualified Code(s): I25.10 - Atherosclerotic heart disease of [place] coronary artery without angina pectoris
[2022-07-03] MEDS: CLOPIDOGREL BISULFATE 75 MG TAB PO SCH (21:11)
[2022-07-03] MEDS: FINASTERIDE 5 MG TAB PO SCH (21:13)
[2022-07-04] MEDS: LEVOTHYROXINE SODIUM 50 MCG TABLET PO SCH (06:25)
[2022-07-04] MEDS: FOLIC ACID 400 MCG TAB PO SCH (08:23)
[2022-07-04] MEDS: METOPROLOL TARTRATE 25 MG TAB PO SCH ×2 (08:23→21:31)
[2022-07-04] MEDS: DOCUSATE SODIUM 100 MG CAP PO SCH ×2 (08:23→21:34)
[2022-07-04] MEDS: BRIMONIDINE TARTRATE 0.2% 5ML OP SCH ×2 (08:23→16:46)
[2022-07-04] MEDS: CIPROFLOXACIN 250 MG TAB PO SCH ×2 (08:23→21:30)
[2022-07-04] MEDS: PRAVASTATIN SOD 10 MG TAB PO SCH (08:24)
[2022-07-04] MEDS: ASPIRIN 81 MG ECTAB PO SCH (08:24)
[2022-07-04] MEDS: INSULIN ASPART PER UNIT SC SCH ×4 (08:49→21:06)
[2022-07-04 09:10] LABS: Hematocrit (blood only) 29.2 % (40.1-51.0); Hemoglobin 9.9 g/dl (14.0-18.0); Mean Corpuscular Hgb Conc 33.9 g/dL (32.0-36.0); Mean Corpuscular Volume 88.5 fL (80.0-100.0); Mean Platelet Volume 10.4 fL (9.4-12.4); Platelet Count 150 K/uL (130-400); RDW Coefficient of Variation 14.1 % (11.5-14.5); RDW Standard Deviation 45.3 fL (36.4-46.3); White Blood Count 7.16 K/ul (4.8-10.8)
[2022-07-04 09:34] LABS: Basophils # (auto) 0.05 K/uL (0-0.2); Basophils % (auto) 0.7 %; Eosinophils # (auto) 0.22 K/uL (0-0.50); Eosinophils % (auto) 3.1 %; Immature Granulocytes # (auto) 0.37 K/uL (0.00-0.02); Immature Granulocytes % (auto) 5.2 %; Lymphocytes # (auto) 1.15 K/uL (1.2-3.4); Lymphocytes % (auto) 16.1 %; Monocytes # (auto) 1.53 K/uL (0.24-0.82); Monocytes % (auto) 21.4 %; Neutrophils # (auto) 3.84 K/uL (1.4-6.5); Neutrophils % (auto) 53.5 %
[2022-07-04 09:38] LABS: Albumin Globulin Ratio 1.4 (0.9-2); Albumin Level 3.6 gm/dl (3.4-5.0); Bilirubin,Total 0.5 mg/dl (0.2-1.0); Calcium 8.9 mg/dl (8.5-10.1); Creatinine Clr Calc Pharmacy 36.5 ml/min; Est GFR (African American) 42.6 ml/min; Est GFR (Non-African American) 36.7 ml/min; Globulin 2.6 gm/dl (2.5-4.0); Magnesium 1.9 mg/dl (1.7-2.4); Phosphorus 3.5 mg/dl (2.5-4.9); Potassium 3.6 mmol/L (3.5-5.1); Total Protein 6.2 gm/dl (6.0-8.3)
--- NOTE | 2022-07-04 11:09 | Urology Progress Note ---
Date of Service July 04, 2022 Assessment & Plan (1) Hematuria: (2) UTI (urinary tract infection): Plan: 82 yo M with multiple comorbidities admitted for hematuria, left sided weakness, and UTI. - Follow-up hematuria. - Afebrile, lab work reviewed - creatinine 1.72, WBC 7.16, Hgb stable - 9.9. Continue to trend labs, H/H. - Urine culture 06/28 grew out Pseudomonas and Enterococcus - initially treated with IV Cefepime --> PO Cipro. - Interiano catheter intact and draining light holguin red - continue to monitor. - Maintain Interiano catheter at present. Okay to gently hand irrigate prn for clot retention, suprapubic pain. - Keep catheter upon discharge to follow-up with urology for voiding trial. - Continue Finasteride. - No acute intervention planned at this time. - Continue supportive care, antibiotics, and medical management per primary service. - Follow-up with urology outpatient as scheduled for voiding trial. - will sign off, contact us with any questions. Admission and Anticipated Discharge Date Admission Date: June 30, 2022 Supervising Physician Co-Signing Physician Notes Discussed patient with MALACHI. Agree with plan. Subjective Patient seen and examined this AM. He is awake and sitting up in bed, appears comfortable. No acute issues overnight. Reports he did not sleep well, but offers no other complaints. Interiano intact and draining light holguin red. No abdominal or suprapubic pain. No nausea or vomiting. No fever or chills. Review of Systems Constitutional: as per Subjective / HPI Gastrointestinal: as per Subjective / HPI Genitourinary: + as per Subjective / HPI Physical Exam Constitutional: well developed and well nourished; no acute distress and not ill appearing Respiratory: normal respiratory effort and able to speak in complete sentences; no respiratory distress and no labored breathing Gastrointestinal (Abdomen): Inspection/Auscultation: abdomen normal to inspection; abdomen not distended Percussion/Palpation: abdomen soft; abdomen nontender and no guarding Musculoskeletal: Extremities: extremities normal to inspection Skin: no visible skin rashes Neurologic: moves all extremities and awake Psychiatric: Orientation: alert and oriented to person Genitourinary: Interiano intact and draining light holguin red, no clots noted. Results & Data ([facility]) Vital Signs (Past 12 Hours) Vital Signs Temp Pulse Resp BP Pulse Ox O2 Del Method 07/04/22 07:30 36.6 C 70 16 175/77 H 100 Room Air PG Care Time/CCT Total # of Minutes Spent Total Time Spent with Patient: Total time spent is greater than 50% in coordination of care (as documented) at patient's floor/unit and/or counseling patient: Coding Level of Care Code 14486 Subseq Hosp Care Lvl 2 Diagnoses Hematuria R31.9 UTI (urinary tract infection) N39.0
--- NOTE | 2022-07-04 15:56 | Hospitalist Progress Note ---
Date of Service July 04, 2022 Assessment & Plan (1) UTI (urinary tract infection): Plan: Somewhat uncertain if true UTI versus asymptomatic bacteriuria; symptoms difficult to ascertain; hematuria per se is not symptom unless hemorrhagic cystitis and in my view nothing to suggest that; however, benefit of doubt and treatswitch to p.o. Cipro (2) Hematuria: Plan: Better, urology input appreciated; urology note notedoutpatient follow-up, maintain [place] (3) CKD (chronic kidney disease): Plan: Patient with CKD-III, progression of renal dysfunction following CABG and MICU stay. Patient had post-operative hypotension requiring pressors/ionotropes and acute blood loss anemia requiring transfusion at that time; slightly higher creatinine notedobserve; no hydro noted 3 days agoif persist worsening trend of renal parameters might need to repeat renal ultrasound (4) Left-sided weakness: Plan: Symptoms somewhat not typical of cerebrovascular etiology; MRI not feasible since pacemaker not compatible; carotid studies unremarkable; he reports weakness better overall since admissionobserve (5) CAD (coronary artery disease): Plan: s/p CABG x 3V performed at [facility] on 05/23/22. Patient denies chest pain. -Continue ASA, Plavix, Metoprolol, Pravastatinhowever will need to assess role of dual antiplatelet-according to cardiology note was related to carotid disease but none seen; given transient symptoms yesterday no change todaybest reassess as outpatient (6) Orthostatic hypotension: Plan: May have been post prolonged course; at present blood pressure fluctuating, in general high; it appears he was also on Lasix and amlodipine at some pointregimen somewhat unclear; stopped fludrocortisone -for the moment observe (7) Controlled type 2 diabetes mellitus with chronic kidney disease: Plan: Chronic. Moderately well controlled on Trulicity. Last AIC=7.6 on 03/12/22. ADA diet. ISS. (8) Hypertension: Plan: As noted blood pressure fluctuating but often on high side; as noted, at some point he was on amlodipine but seems to have dropped off; at present observe; also, hold off starting Lasixfollow (9) Hypothyroidism: Plan: Chronic. TSH WNL -Continue Synthroid Plan Follow anemiapresent on admission Admission and Anticipated Discharge Date Admission Date: June 30, 2022 Subjective Follow-up of original presentation with hematuriaagain bloodstained urine; yesterday had a transient episode where he felt he was falling down though he was in bed Physical Exam Physical Exam: Constitutional and general: No acute distress, looks biologic age Head and face: No puffiness, atraumatic Eyes: No scleral icterus, extraocular movements normal Neck: Supple, no JVD Musculoskeletal: No acute joint swelling, no bony abnormalities Skin/dermatologic/integument: No rash, no purpura Hematologic and lymphatic: pallor +, no petechia Gastrointestinal/abdomen: Nondistended, soft, nonacute Neurologic: Cranial nerves intact, nonfocal Psychiatry: Awake, alert, pleasant, communicative Cardiovascular: Heart rhythm regular, no rub, systolic murmur, no gallop Respiratory: Chest movements equal, no use of accessory muscles, no adventitious sounds Extremities: No edema, no cyanosis Results & Data Results & Data ([facility]) Vital Signs (Past 12 Hours) Vital Signs Temp Pulse Resp BP Pulse Ox O2 Del Method 07/04/22 07:30 36.6 C 70 16 175/77 H 100 Room Air Laboratory Results Laboratory Results - last 24 hr 07/03/22 07/03/22 07/04/22 17:09 20:17 08:20 WBC RBC Hgb Hct MCV MCH MCHC RDW Std Deviation RDW Coeff of Vinny Plt Count MPV Immature Gran % (Auto) Neut % (Auto) Lymph % (Auto) [place] % (Auto) Eos % (Auto) Baso % (Auto) Neut # (Auto) Lymph # (Auto) [place] # (Auto) Eos # (Auto) Baso # (Auto) Immature Gran # (Auto) Sodium Potassium Chloride Carbon Dioxide Anion Gap BUN Creatinine Est Cr Clr Drug Dosing Est GFR ( Amer) Est GFR (Non-Af Amer) POC Glucose 120 H 186 H 144 H Fasting Glucose Calcium Phosphorus Magnesium Total Bilirubin AST ALT Alkaline Phosphatase Total Protein Albumin Globulin Albumin/Globulin Ratio 07/04/22 07/04/22 07/04/22 08:49 08:49 12:13 WBC 7.16 RBC 3.30 L Hgb 9.9 L Hct 29.2 L MCV 88.5 MCH 30.0 MCHC 33.9 RDW Std Deviation 45.3 RDW Coeff of Vinny 14.1 Plt Count 150 MPV 10.4 Immature Gran % (Auto) 5.2 Neut % (Auto) 53.5 Lymph % (Auto) 16.1 [place] % (Auto) 21.4 Eos % (Auto) 3.1 Baso % (Auto) 0.7 Neut # (Auto) 3.84 Lymph # (Auto) 1.15 L [place] # (Auto) 1.53 H Eos # (Auto) 0.22 Baso # (Auto) 0.05 Immature Gran # (Auto) 0.37 H Sodium 137 Potassium 3.6 Chloride 103 Carbon Dioxide 28 Anion Gap 6 BUN 25 H Creatinine 1.72 H Est Cr Clr Drug Dosing 36.5 Est GFR ( Amer) 42.6 Est GFR (Non-Af Amer) 36.7 POC Glucose 219 H Fasting Glucose 177 H Calcium 8.9 Phosphorus 3.5 Magnesium 1.9 Total Bilirubin 0.5 AST 13 ALT 8 Alkaline Phosphatase 94 Total Protein 6.2 Albumin 3.6 Globulin 2.6 Albumin/Globulin Ratio 1.4 PG Care Time/CCT Total # of Minutes Spent Total Time Spent with Patient: Total time spent is greater than 50% in coordination of care (as documented) at patient's floor/unit and/or counseling patient: Coding Level of Care Code 02466 Subseq Hosp Care Lvl 2 Diagnoses UTI (urinary tract infection) N39.0 Hematuria R31.9 CKD (chronic kidney disease) N18.9 Left-sided weakness R53.1 CAD (coronary artery disease) I25.10 Coronary Disease-Associated Artery/Lesion type: [place] artery [place] vs. transplanted heart: [place] heart Associated angina: without angina Orthostatic hypotension I95.1 Controlled type 2 diabetes mellitus with chronic kidney disease E11.22 Hypertension I10 Hypothyroidism E03.9 (1) CAD (coronary artery disease) Coronary Disease-Associated Artery/Lesion type: [place] artery [place] vs. transplanted heart: [place] heart Associated angina: without angina Qualified Code(s): I25.10 - Atherosclerotic heart disease of [place] coronary artery without angina pectoris
[2022-07-04] MEDS: SENNA 8.6 MG TAB PO PRN (21:30)
[2022-07-04] MEDS: FINASTERIDE 5 MG TAB PO SCH (21:30)
[2022-07-04] MEDS: MELATONIN 3 MG TAB PO PRN (21:30)
[2022-07-04] MEDS: CLOPIDOGREL BISULFATE 75 MG TAB PO SCH (21:31)
[2022-07-05] MEDS: LEVOTHYROXINE SODIUM 50 MCG TABLET PO SCH (05:51)
[2022-07-05] MEDS: BRIMONIDINE TARTRATE 0.2% 5ML OP SCH ×2 (07:20→15:29)
[2022-07-05 08:18] LABS: Hemoglobin 9.2 g/dl (14.0-18.0); Mean Corpuscular Hemoglobin 30.7 pg (25.0-34.0); Mean Corpuscular Hgb Conc 34.1 g/dL (32.0-36.0); Mean Platelet Volume 10.1 fL (9.4-12.4); Platelet Count 153 K/uL (130-400); RDW Coefficient of Variation 14.2 % (11.5-14.5); RDW Standard Deviation 46.3 fL (36.4-46.3); White Blood Count 6.09 K/ul (4.8-10.8)
[2022-07-05] MEDS: ASPIRIN 81 MG ECTAB PO SCH (08:35)
[2022-07-05] MEDS: DOCUSATE SODIUM 100 MG CAP PO SCH (08:36)
[2022-07-05] MEDS: PRAVASTATIN SOD 10 MG TAB PO SCH (08:36)
[2022-07-05] MEDS: FOLIC ACID 400 MCG TAB PO SCH (08:36)
[2022-07-05] MEDS: CIPROFLOXACIN 250 MG TAB PO SCH (08:36)
[2022-07-05] MEDS: METOPROLOL TARTRATE 25 MG TAB PO SCH (08:36)
[2022-07-05 08:41] LABS: Basophils # (auto) 0.03 K/uL (0-0.2); Basophils % (auto) 0.5 %; Eosinophils # (auto) 0.14 K/uL (0-0.50); Eosinophils % (auto) 2.3 %; Immature Granulocytes # (auto) 0.32 K/uL (0.00-0.02); Immature Granulocytes % (auto) 5.3 %; Lymphocytes # (auto) 1.11 K/uL (1.2-3.4); Lymphocytes % (auto) 18.2 %; Monocytes # (auto) 1.36 K/uL (0.24-0.82); Monocytes % (auto) 22.3 %; Neutrophils # (auto) 3.13 K/uL (1.4-6.5); Neutrophils % (auto) 51.4 %
[2022-07-05 08:45] LABS: Albumin Globulin Ratio 1.4 (0.9-2); Albumin Level 3.3 gm/dl (3.4-5.0); Bilirubin,Total 0.5 mg/dl (0.2-1.0); Calcium 8.7 mg/dl (8.5-10.1); Creatinine Clr Calc Pharmacy 37.4 ml/min; Est GFR (African American) 43.8 ml/min; Est GFR (Non-African American) 37.8 ml/min; Globulin 2.4 gm/dl (2.5-4.0); Magnesium 1.8 mg/dl (1.7-2.4); Potassium 3.6 mmol/L (3.5-5.1); Total Protein 5.7 gm/dl (6.0-8.3)
[2022-07-05] MEDS: INSULIN ASPART PER UNIT SC SCH ×2 (09:29→12:46)
--- NOTE | 2022-07-05 13:37 | Discharge Summary ---
Date of Service July 05, 2022 Admission HPI Per Admitting Provider Sam Castillo is a pleasant 82yo male with history of CAD, HTN, HLP, COPD, DM, CKD-III, Prostate CA, AF and GERD. Patient was admitted to [facility] from 05/23/22 - 05/30/22. He had CABG x 3V (CHRISTINE to LAD, Saphenous vein grafts to 1st diagonal and OM) and placement of atrial and biventricular pacemaker on 05/23/22. His post-operative course was complicated by cardiogenic shock requiring pressor/ionotropic support with levophed and dobutamine, delirium requiring treatment with Precedex infusion, acute blood loss anemia and coagulopathy s/p PRBC transfusion, 2u platelets and 2u FFP, Atrial fibrillation managed with amiodarone, ileus, critical illness myopathy and acute urinary retention requiring placement of Interiano catheter. Patient was discharged to [facility] 05/30/22. He did well with therapy overall. Had some lightheadedness upon standing which improved prior to discharge. He did have some mild elevation of Cr to 2.6. He was discharged to home on 06/12/22. Patient was seen by PCP in followup on 06/17/22. During that visit he voiced concern re: his multiple new medications. His Amlodipine was decreased to 2.5mg daily. His Interiano remained in place. He was seen by Urology on 06/27/22 and had a cystoscopy performed which revealed moderate prostate enlargement with signs of obstruction, chronic bladder outlet obstruction. No masses or tumors present. He was seen in the ER on 06/28/22 with complaint of hematuria as well as mention of left sided weakness that occurred 2 weeks prior. He had a negative CT of the head. It was recommended that he stay for a CVA workup but preferred to go home. He returns today with complaint of ongoing hematuria with passage of clots, UTI with culture positive for Pseudomonas and possible Enterococcus from 06/28/22 and persistent mild weakness of the left hand and leg. No additional complaints. He denies fever, chills, chest pain, cough, SOB, abdominal pain, nausea, vomiting, diarrhea or constipation. ER Course: Cefepime, NSS Principal Diagnosis Hematuria Discharge Exam No acute distress Abdomen benign Good volume status Vital Signs Temp Pulse Pulse Resp BP BP Pulse Ox 07/05/22 07:20 36.9 C 70 16 155/78 H 97 07/04/22 21:04 36.3 C L 70 18 132/69 96 07/04/22 16:00 36.3 C L 71 18 146/82 H 99 O2 Del Method 07/05/22 07:20 Room Air 07/04/22 21:04 Room Air 07/04/22 16:00 Room Air Intake and Output 07/04/22 07/05/22 07/05/22 22:59 06:59 14:59 Intake Total 260 / 260 Output Total 225 / 1375 500 / 1375 Balance 35 / -1115 -500 / -1115 Intake: Oral 260 / 260 Output: Urine Amount (Catheter) 225 / 1375 500 / 1375 Interiano/Indwelling 225 / 1375 500 / 1375 Discharge Data Allergies Allergy/AdvReac Type Severity Reaction Status Date / Time oxycodone Allergy Intermediate Hallucinati Verified 06/30/22 21:22 ng tramadol Allergy Intermediate HALLUCINATI Verified 06/30/22 21:22 ONS gluten Allergy Mild GI SYMPTOMS Verified 06/30/22 21:22 lactose Allergy Mild GI SYMPTOMS Verified 06/30/22 21:22 Penicillins Allergy Mild RASH Verified 06/30/22 21:22 Sulfa (Sulfonamide Allergy Mild RASH Verified 06/30/22 21:22 Antibiotics) cyclobenzaprine Allergy Unknown Unknown Verified 06/30/22 23:41 Hgdtcjq-YPP-PbJ Reductase AdvReac Intermediate MUSCLE Verified 06/30/22 21:22 Inhibitor WEAKNESS, [Jpznfkp-Qlf-Toh Reductase BRAIN FOG Inhibitor] Consultations 07/02/22 12:30 Consult Urology Routine Ordered Studies 07/01/22 23:10 US renal/blad retro comp Routine 07/03/22 10:45 Carotid duplex [US carotid doppler BI] Routine Hospital Course (1) UTI (urinary tract infection): Somewhat uncertain if true UTI versus asymptomatic bacteriuria; symptoms diffic ult to ascertain; hematuria per se is not symptom unless hemorrhagic cystitis and in my view nothing to suggest that; however, benefit of doubt and treated and in my view has completed adequate treatment (2) Hematuria: Better, urology input appreciated; urology note notedoutpatient follow-up, maintain Interiano; dating a combination of enlarged prostate, history of prostate cancer status postradiation (3) CKD (chronic kidney disease): Patient with CKD-III, progression of renal dysfunction following CABG and MICU stay. Patient had post-operative hypotension requiring pressors/ionotropes and acute blood loss anemia requiring transfusion at that time; However, underlying CKD with creatinine 1.6 creatinine 2020follow; can consider outpatient nephrology but will defer to PCP (4) Left-sided weakness: Symptoms somewhat not typical of cerebrovascular etiology; MRI not feasible since pacemaker not compatible; carotid studies unremarkable; he reports weakness better overall since admissionobserve (5) CAD (coronary artery disease): s/p CABG x 3V performed at [facility] on 05/23/22. Patient denies chest pain. -Continue ASA, Plavix, Metoprolol, Pravastatinwill defer dual antiplatelet to cardiology; did not change given some transient possible TIA symptoms; carotid duplex unremarkable (6) Orthostatic hypotension: May have been post prolonged course; at present blood pressure fluctuating, with if at all high trend; fludrocortisone just stopped and may take time for effect to dissipate; in the past was on amlodipine and Lasixoff both; at present cautiously no change, follow blood pressure and reassess as outpatient (7) Controlled type 2 diabetes mellitus with chronic kidney disease: Chronic. Moderately well controlled on Trulicity. Last AIC=7.6 on 03/12/22. ADA diet. ISS. (8) Hypertension: See #6 (9) Hypothyroidism: Chronic. TSH WNL -Continue Synthroid Plan He feels good and is thrilled to go home-best news so far; multiple comorbidities does present significant risk of readmission but prolonged hospitalization will not decrease same Follow anemia as outpatient along with renal parameters Total Time Total Time Spent Total Time Spent (In Minutes): 32 minutes Discharge Plan Discharge Items Patient Disposition: Home - Home Health Services Reason For Visit: UTI Discharge Diagnosis: Hematuria Activity: Resume your previous activity Non-emergency contact: Primary Care Provider and Urologist Call non-emergency contact if: your symptoms worsen Follow-up/Referrals: Sam Leung MD [Physician] - (Known to you, recent notes hospitalization, post discharge follow-up in about 1 week if possible) Pro,Dick Waldron MD [Primary Care Provider] - (In about 5 days) [facility],Nurse [FAKE FOR SCHEDULES] - 07/10/22 9:30 am Diet: Carb Consistent or DM2 and Heart Healthy Addtl Attending Provider Instructions: Please maintain a record of your blood pressure and take it to your primary care doctor visit-if you are unable to keep yourself please have home health check, write it down and take it to doctors visits; Keep all your prior healthcare appointments Apply barrier cream to area of skin breakdown buttocks daily Addtl Patient Care Representative Provider Instructions: You have a voiding trial scheduled at [facility] on July 10 at 9:30 am. Please call our office at [phone] with any questions, concerns or need to reschedule appointments for any reason. We are happy to assist you. Pending Studies at Discharge: No Stand-Alone Forms: [facility], Smoking Cessation Medications and DC Order Prescriptions: Continued levothyroxine [Synthroid] 50 mcg tablet 50 mcg PO QAM Qty: 90 1RF finasteride [Proscar] 5 mg tablet 5 mg PO HS Qty: 90 3RF clopidogrel [Plavix] 75 mg tablet 75 mg PO PM Qty: 90 3RF (DME) FreeStyle Lite Strips Strip See Rx Instructions .Route Qty: 300 3RF Rx Instructions: TEST THREE TIMES DAILY. DX: E11.9 (DME) lancets [FreeStyle Lancets] 28 gauge misc See Rx Instructions .Route Qty: 300 3RF Rx Instructions: TEST THREE TIMES DAILY. DX: E11.9 brimonidine 0.2 % drops 1 drp ophthalmic (eye) BID Qty: 15 2RF Rx Instructions: administer approximately 8 hours apart folic acid 400 mcg tablet 0.4 mg PO DAILY pravastatin 10 mg tablet 10 mg PO DAILY Qty: 90 3RF aspirin 81 mg Tablet,Delayed Release (Dr/Ec) 81 mg PO QAM metoprolol tartrate 25 mg tablet 25 mg PO Q12 Trulicity 1.5 mg/0.5 mL pen injector 1.5 mg subcut WK Discontinued furosemide 40 mg tablet 40 mg PO DAILY Qty: 30 5RF potassium chloride 20 mEq tablet extended release 20 meq PO DAILY Qty: 30 5RF fludrocortisone 0.1 mg tablet 0.1 mg PO DAILY Qty: 30 11RF Discharge Orders: Discharge Order (Routine); Ordered 07/05/22 Ordered By: Sukh Frances/Other Patient Handouts: Managing Type 2 Diabetes Admission Data Admit Date/Time: 06/30/22 20:42 Attending Provider: Sukh Talamantes Admit Provider: Misti Parish Primary Care Provider: Dick Adams Other Providers: Evelyn,[facility] ; Elvis Enriquez ; Ibrahima Sandra Coding Level of Care Code D/C DAY MANAGEMENT >30 MINS Diagnoses UTI (urinary tract infection) N39.0 Hematuria R31.9 CKD (chronic kidney disease) N18.9 Left-sided weakness R53.1 CAD (coronary artery disease) I25.10 Associated angina: without angina Coronary Disease-Associated Artery/Lesion type: [place] artery [place] vs. transplanted heart: [place] heart Orthostatic hypotension I95.1 Controlled type 2 diabetes mellitus with chronic kidney disease E11.22 Hypertension I10 Hypothyroidism E03.9
== END 2022-07-05 16:45 | disposition home health service (06) | DRG 690 ==
LOC: ED 18:01 → 3W 20:42 → SUATTDRO 20:42 → 3W 22:38

== ENCOUNTER 2023-10-03 09:06 | Inpatient (IN) ==
--- NOTE | 2023-10-03 09:47 | Emergency Department Note ---
Impression & Plan JORGE (acute kidney injury) ADMIT ED Provider Note HPI: History obtained from patient and at bedside. The patient is a 83-year-old gentleman with history of coronary artery disease status post CABG, status post pacemaker, chronic kidney disease, presents emergency department with a chief complaint of an unwitnessed fall. Patient's is at the bedside and assisting with history, she states that she heard the patient fall down inside the house in the bedroom when she was in the garage. She went to check on him and found him sitting on the floor. Patient states he fell but he is not keen on the details of his fall. He states he did hit the back of his head, he does not feel that he lost consciousness. On arrival here to the ED the patient complains of some posterior head pain as well as some neck pain. He otherwise denies any focal complaint of pain. Patient is on Plavix. On arrival here to the ED the patient is otherwise hemodynamically stable, he ambulates all extremities spontaneously without issue and maintains flexion at the hips bilaterally. ROS: - Per HPI Differential Diagnosis: Intracranial hemorrhage to include subdural hemorrhage, epidural hematoma, skull fracture, cervical spine fracture, amongst other potential pathologies. *Outpatient medications and allergy history reviewed. *Pertinent external medical records reviewed - PE: General: Alert HEENT: Normocephalic, trachea midline Eyes: Extraocular eye movement is intact, no scleral erythema Pulmonary: Clear to auscultation bilaterally, no wheezing Cardio: Regular rate and rhythm GI: Abdomen is soft to palpation : No suprapubic tenderness MSK: No evidence of trauma or malformation of the extremities, no edema Skin: No evidence of rash Neuro: Alert, no focal deficits Psychiatric: Cooperative INDEPENDENT INTERPRETATIONS: environmental monitoring technician: (As interpreted by myself): - An order was placed for continuous cardiac monitoring - Patient was noted to be in paced rhythm with a rate of 70 EKG: (As interpreted by myself): Rate: 70 Rhythm: Sinus rhythm Intervals: Within normal limits ST changes: No ST elevation Time: 0958 Interventions provided in ED: -Interiano catheter placement, IV fluid bolus Medical Decision Making: Patient presented to the emergency department after an unwitnessed fall. CT imaging of the head does not show any evidence of any acute intracranial hemorrhage. Lab work was obtained and shows no leukocytosis, hemoglobin is stable at 9.5 which is near the patient's baseline, platelet count is normal, CMP shows creatinine elevated to 3.5 (baseline near 1.8 per lab work in August 2023) BUN is also elevated at 71, patient has a history of urinary retention therefore bladder scan was performed and does show greater than 1 L of urine within the bladder. Interiano catheter was therefore placed and the patient had greater than 1 L of yellow urine drained into the bag. Urinalysis is nonspecific, 3+ blood, there is leukocyte Estrace and pyuria with a significant number of epithelial cells. Will send for culture. Patient is currently on fosfomycin for UTI per the urology service, I did discuss this with the admitting hospitalist service, Sanjeev Levin PA-C and Dr. Orta, blood cultures were ordered and will defer antibiotic treatment to the inpatient team at this time. The patient is are in agreement for admission for acute renal failure and the patient was placed for admission in stable condition. Consultants/Discussions held with other healthcare providers: -Hospitalist, Dr. Orta Disposition discussion held by myself with: -Patient and at bedside Diagnosis: 1. Acute renal failure 2. Urinary retention, obstructive, acute 3. Closed head injury, acute 4. Elevated BUN 5. 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 History of anesthesia reaction Light headedness History of pacemaker Low iron Myocardial infarct Cardiomyopathy Brain TIA CAD (coronary artery disease) Orthostatic hypotension Arthritis Pancreatic tumor GERD (gastroesophageal reflux disease) Diabetes mellitus, type 2 History of asthma [place] type 1 second degree AV block History of prostate cancer Hypertension Syncope Chronic obstructive pulmonary disease Stage III chronic kidney disease Spinal stenosis of lumbar region Hypothyroidism Carotid artery stenosis Hypercholesteremia Diabetes TIA (transient ischemic attack) (~2001) Surgical History History of cardiac cath S/P CABG x 3 History of cataract surgery History of esophagogastroduodenoscopy (EGD) H/O colonoscopy with polypectomy [place] teeth removed S/P lumbar laminectomy History of loop recorder History of knee replacement History of tonsillectomy and adenoidectomy H/O hernia repair Hx of cholecystectomy Family History Brother Colon cancer Prostate cancer Grandfather Rectal cancer Unknown Heart disease Cancer Hypertension Mother Diabetes Congestive heart failure Stroke Grandmother (Paternal) Stroke Grandfather (Maternal) Myocardial infarction Other No family history of adverse response to anesthesia Denies family history of Ovarian cancer Breast cancer Social History Smoking Status: Former smoker Tobacco Type: Cigarettes Second Hand Exposure: No; Do You Dip or Chew Tobacco: No; Hx Alcohol Use: Yes Alcohol type: hard liquor Hx Substance Use: No Preferred Language: Persian Communication Ability: Effective Visual Impairment: No Limitations Hearing Ability: Use of Hearing Aid Candy Depositing Machine Operator Required: No Beliefs That Will Affect Care: None marital status: Current Living Situation: Spouse current occupational status: retired current occupation: Retired How many Children do You have: 3 Feels Safe at Home: Yes Childhood Exposure to Second-Hand Smoke: Yes Diet: gluten free and lactose free Dental Care, Regularly: Yes Physical Activity Frequency: Daily Seatbelt Use: always Sunscreen Use: Yes Assistive Devices: Glasses, Hearing Aid - Bilateral and Walker Allergies Allergies Allergy/AdvReac Type Severity Reaction Status Date / Time cyclobenzaprine Allergy Unknown Unknown Verified 09/26/23 13:25 gluten Allergy Unknown GI SYMPTOMS Verified 09/26/23 13:25 oxycodone Allergy Unknown Hallucinati Verified 09/26/23 13:25 ng Penicillins Allergy Unknown RASH Verified 09/26/23 13:25 Sulfa (Sulfonamide Allergy Unknown RASH Verified 09/26/23 13:25 Antibiotics) tramadol Allergy Unknown HALLUCINATI Verified 09/26/23 13:25 ONS Hyyrblt-AHC-GeV Reductase AdvReac Unknown MUSCLE Verified 09/26/23 13:25 Inhibitor WEAKNESS, [Midxzto-Kvu-Bgz Reductase BRAIN FOG Inhibitor] Home Meds Home Medications Medication Instructions Recorded Confirmed folic acid 400 mcg tablet 0.4 mg PO QAM 02/22/22 09/26/23 ferrous sulfate 325 mg (65 mg 325 mg PO Q2D 12/06/22 09/26/23 iron) tablet (iron) pravastatin 10 mg tablet 10 mg PO QAM 12/06/22 09/26/23 acetaminophen 650 mg 650 mg PO Q8H 05/03/23 09/26/23 tablet,extended release (Arthritis Pain Relief (acetaminophen) ER) latanoprost 0.005 % eye drops 1 drp ophthalmic (eye) HS 06/21/23 09/26/23 Previous Rx's Medication Instructions Recorded blood sugar diagnostic (FreeStyle #300 ea 07/30/22 Lite Strips) finasteride 5 mg tablet (Proscar) 5 mg PO HS #90 tabs 12/17/22 blood-glucose meter (FreeStyle #1 ea 02/08/23 Lite Meter kit) pantoprazole 20 mg tablet,delayed 20 mg PO DAILY #30 tabs 03/04/23 release clopidogrel 75 mg tablet (Plavix) 75 mg PO PM #90 tabs 03/14/23 levothyroxine 50 mcg tablet 50 mcg PO QAM #90 tabs 03/19/23 (Synthroid) clindamycin HCl 300 mg capsule 600 mg (2 x 300 mg) PO DIRECTED 06/17/23 PRN pretreat dental appt #10 caps dulaglutide 3 mg/0.5 mL 3 mg (0.5 mL) subcut WK #2 mL 06/20/23 subcutaneous pen injector (TrMyworldwall) lancets 28 gauge (FreeStyle #300 ea 08/05/23 Lancets) escitalopram oxalate 5 mg tablet 5 mg PO DAILY #90 tabs 09/04/23 (Lexapro) ondansetron HCl 4 mg tablet 4 mg PO Q8H PRN nausea and 09/09/23 vomiting #30 tabs carvedilol 12.5 mg tablet 12.5 mg PO BID #180 tabs 09/24/23 ciprofloxacin HCl 500 mg tablet 500 mg PO BID #10 tabs 09/25/23 (Cipro) fosfomycin tromethamine 3 gram 1 packet PO Q3D #2 ea 09/30/23 oral packet Results & Data (ED) Vital Signs Vital Signs - 24 hr 10/03/23 09:26 10/03/23 09:49 10/03/23 10:06 Temperature 37.1 C Temperature Source Temporal Artery Scan Pulse Rate 70 67 Pulse Rate [Apical] Respiratory Rate 14 Blood Pressure 120/66 Blood Pressure [Left Arm] Blood Pressure Mean 84 Blood Pressure Mean [Left Arm] Pulse Oximetry 98 98 Oxygen Delivery Method Room Air Room Air Sepsis New/Unexplained Change in Mental Status No Sepsis Action Taken by Nursing No Action Required 10/03/23 11:07 Temperature Temperature Source Pulse Rate Pulse Rate [Apical] 70 Respiratory Rate 18 Blood Pressure Blood Pressure [Left Arm] 148/82 H Blood Pressure Mean Blood Pressure Mean [Left Arm] 104 Pulse Oximetry 97 Oxygen Delivery Method Room Air Sepsis New/Unexplained Change in Mental Status Sepsis Action Taken by Nursing Laboratory Data 10/03/23 09:49 10/03/23 09:38 Lab Results 10/03/23 10/03/23 10/03/23 Range/Units 09:38 09:49 11:15 WBC 9.77 (4.8-10.8) K/ul RBC 3.18 L (4.70-6.10) M/uL Hgb 9.5 L (14.0-18.0) g/dl Hct 29.4 L (42.0-52.0) % MCV 92.5 (80.0-100.0) fL MCH 29.9 (25.0-34.0) pg MCHC 32.3 (32.0-36.0) g/dL RDW Std Deviation 54.9 H (36.4-46.3) fL RDW Coeff of Vinny 15.9 H (11.5-14.5) % Plt Count 167 (130-400) K/uL MPV 11.2 (9.4-12.4) fL Immature Gran % (Auto) 1.1 % Neut % (Auto) 68.1 % Lymph % (Auto) 8.4 % [place] % (Auto) 21.2 % Eos % (Auto) 0.8 % Baso % (Auto) 0.4 % Neut # (Auto) 6.65 H (1.40-6.50) K/uL Lymph # (Auto) 0.82 L (1.20-3.40) K/uL [place] # (Auto) 2.07 H (0.11-0.59) K/uL Eos # (Auto) 0.08 (0.00-0.50) K/uL Baso # (Auto) 0.04 (0.00-0.20) K/uL Immature Gran # (Auto) 0.11 (0.01-0.20) K/uL ESR 49 H (0-20) mm/hr PT 11.4 (9.0-12.0) Seconds INR 1.0 (0.9-1.1) Sodium 134 L (136-145) mmol/L Potassium 5.1 (3.5-5.1) mmol/L Chloride 103 (98-107) mmol/L Carbon Dioxide 24 (21-32) mmol/L Anion Gap 7 (3-11) BUN 71 H (6-23) mg/dl Creatinine 3.51 H (0.6-1.4) mg/dl Est Cr Clr Drug Dosing Not Reportable Est GFR ( Amer) 17.8 ml/min Est GFR (Non-Af Amer) 15.4 ml/min BUN/Creatinine Ratio 20.2 H (10-20) Glucose 232 H (70-99(Fasting)) mg/dl Calcium 9.1 (8.6-10.3) mg/dl Total Bilirubin 0.5 (0.2-1.0) mg/dl AST 11 L (13-39) U/L ALT 7 (7-52) U/L Alkaline Phosphatase 61 (34-104) U/L Troponin I High Sens 12.8 (0-20) pg/ml Total Protein 6.6 (6.0-8.3) gm/dl Albumin 3.7 (3.4-5.0) gm/dl Globulin 2.9 (2.5-4.0) gm/dl Albumin/Globulin Ratio 1.3 (0.9-2) Lipase 17 (11-82) U/L Urine Color Yellow Urine Appearance Clear (Clear) Urine pH 5.5 (4.5-7.5) Ur Specific [place] 1.011 (1.000-1.030) Urine Protein 1+ H (Negative) Urine Glucose (UA) Negative (Negative) Urine Ketones Negative (Negative) Urine Blood 3+ H (Negative) Urine Nitrite Negative (Negative) Urine Bilirubin Negative (Negative) Urine Urobilinogen Negative (Negative) Ur Leukocyte Esterase 3+ H (Negative) Urine WBC (Auto) >30 H (0-5) /hpf Urine RBC (Auto) 10-30 H (0-4) /hpf U Hyaline Cast (Auto) 1-5 (0-5) /lpf U Epithel Cells (Auto) >30 H (0-5) /lpf Urine Bacteria (Auto) Negative (Negative) Ur Renal Epithelial Cell Not Reportable Imaging Data Radiologist's Impression: Head CT 10/03/23 09:[address] DOSE: 625.8 mGy.cm HISTORY: fall, on plavix TECHNIQUE: Multiaxial CT images of the head were performed without the use of intravenous contrast. Automated exposure control was utilized for this study. A dose lowering technique was utilized adhering to the principles of ALARA. Comparison: Head CT 06/28/2022. Findings: The paranasal sinuses and mastoid air cells are clear. The calvarium and skull base are intact. There is no mass, hematoma, midline shift, acute infarct. White matter hypodensity is nonspecific but suggestive of microvascular ischemic change. The ventricles and sulci demonstrate mild age-related involutional changes. Impression: No acute intracranial abnormality. Atrophy and microvascular ischemic changes. ACT 112: Negative or not required by law. Electronically signed by: Jared Brock M.D. 10/03/2023 10:40 AM Discharge Plan Visit Data Chief Complaint: Fall Stated Complaint: FALL ED Provider: Jacky Min Discharge Problem: JORGE (acute kidney injury) Forms Stand Alone Forms: [facility] Prescriptions Prescriptions: No Action (DME) FreeStyle Lite Strips Strip See Rx Instructions .Route Qty: 300 3RF Rx Instructions: TEST THREE TIMES DAILY. DX: E11.9 pravastatin 10 mg tablet 10 mg PO QAM ferrous sulfate [iron] 325 mg (65 mg iron) Tablet 325 mg PO Q2D (DME) blood-glucose meter [FreeStyle Lite Meter] Kit See Rx Instructions .Route Qty: 1 0RF Rx Instructions: Test blood sugar three times daily DX:E11.9 clopidogrel [Plavix] 75 mg tablet 75 mg PO PM Qty: 90 3RF levothyroxine [Synthroid] 50 mcg tablet 50 mcg PO QAM Qty: 90 3RF Rx Instructions: noon clindamycin HCl 300 mg capsule 600 mg PO DIRECTED PRN (Reason: pretreat dental appt) Qty: 10 0RF Rx Instructions: TAKE 2 CAPSULES 1 HOUR PRIOR TO DENTAL APPOINTMENT Trulicity 3 mg/0.5 mL pen injector 3 mg subcut WK Qty: 2 3RF (DME) lancets [FreeStyle Lancets] 28 gauge misc See Rx Instructions .Route Qty: 300 3RF Rx Instructions: TEST THREE TIMES DAILY. DX: E11.9 escitalopram oxalate [Lexapro] 5 mg tablet 5 mg PO DAILY Qty: 90 1RF Patient Comments: STATES NOT TAKING fosfomycin tromethamine 3 gram packet 1 packet PO Q3D Qty: 2 0RF pantoprazole 20 mg tablet,delayed release (DR/EC) 20 mg PO DAILY Qty: 30 3RF Patient Comments: hs carvedilol 12.5 mg tablet 12.5 mg PO BID Qty: 180 3RF folic acid 400 mcg tablet 0.4 mg PO QAM Patient Comments: NOT IN STOCK AT PHARMACY , CURRENTLY OUT OF finasteride [Proscar] 5 mg tablet 5 mg PO HS Qty: 90 1RF acetaminophen [Arthritis Pain Relief (acetam)] 650 mg tablet extended release 650 mg PO Q8H ciprofloxacin HCl [Cipro] 500 mg tablet 500 mg PO BID Qty: 10 0RF Rx Instructions: Start 1.5 days prior to procedure latanoprost 0.005 % drops 1 drp ophthalmic (eye) HS ondansetron HCl 4 mg tablet 4 mg PO Q8H PRN (Reason: nausea and vomiting) Qty: 30 0RF Referrals Referrals: Pro,Dick Waldron MD [Primary Care Provider] -
[2023-10-03 10:13] LABS: Basophils # (auto) 0.04 K/uL (0.00-0.20); Basophils % (auto) 0.4 %; Eosinophils # (auto) 0.08 K/uL (0.00-0.50); Eosinophils % (auto) 0.8 %; Hematocrit (blood only) 29.4 % (42.0-52.0); Hemoglobin 9.5 g/dl (14.0-18.0); Immature Granulocytes # (auto) 0.11 K/uL (0.01-0.20); Immature Granulocytes % (auto) 1.1 %; Lymphocytes # (auto) 0.82 K/uL (1.20-3.40); Lymphocytes % (auto) 8.4 %; Mean Corpuscular Hemoglobin 29.9 pg (25.0-34.0); Mean Corpuscular Hgb Conc 32.3 g/dL (32.0-36.0); Mean Corpuscular Volume 92.5 fL (80.0-100.0); Mean Platelet Volume 11.2 fL (9.4-12.4); Monocytes # (auto) 2.07 K/uL (0.11-0.59); Monocytes % (auto) 21.2 %; Neutrophils # (auto) 6.65 K/uL (1.40-6.50); Neutrophils % (auto) 68.1 %; Platelet Count 167 K/uL (130-400); RDW Coefficient of Variation 15.9 % (11.5-14.5); RDW Standard Deviation 54.9 fL (36.4-46.3); Red Blood Count 3.18 M/uL (4.70-6.10); White Blood Count 9.77 K/ul (4.8-10.8)
[2023-10-03 10:33] LABS: Alanine Aminotransferase 7 U/L (7-52); Albumin Globulin Ratio 1.3 (0.9-2); Albumin Level 3.7 gm/dl (3.4-5.0); Alkaline Phosphatase 61 U/L (34-104); Anion Gap 7 (3-11); Aspartate Aminotransferase 11 U/L (13-39); BUN Creatinine Ratio 20.2 (10-20); Bilirubin,Total 0.5 mg/dl (0.2-1.0); Blood Urea Nitrogen 71 mg/dl (6-23); Calcium 9.1 mg/dl (8.6-10.3); Carbon Dioxide 24 mmol/L (21-32); Chloride 103 mmol/L (98-107); Est GFR (African American) 17.8 ml/min; Est GFR (Non-African American) 15.4 ml/min; Globulin 2.9 gm/dl (2.5-4.0); Glucose 232 mg/dl (70-99(Fasting)); Lipase 17 U/L (11-82); Potassium 5.1 mmol/L (3.5-5.1); Sodium 134 mmol/L (136-145); Total Protein 6.6 gm/dl (6.0-8.3)
[2023-10-03 10:37] LABS: Troponin I High Sensitivity 12.8 pg/ml (0-20)
[2023-10-03 10:39] LABS: Prothrombin Time 11.4 Seconds (9.0-12.0)
--- NOTE | 2023-10-03 10:41 | CT Scan Report ---
HEAD CT NONCONTRAST CT DOSE: 625.8 mGy.cm HISTORY: fall, on plavix TECHNIQUE: Multiaxial CT images of the head were performed without the use of intravenous contrast. A utomated exposure control was utilized for this study. A dose lowering technique was utilized adheri ng to the principles of ALARA. Comparison: Head CT 06/28/2022. Findings: The paranasal sinuses and mastoid air cells are clear. The calvarium and skull base are int act. There is no mass, hematoma, midline shift, acute infarct. White matter hypodensity is nonspecifi c but suggestive of microvascular ischemic change. The ventricles and sulci demonstrate mild age-rela felicity involutional changes. Impression: No acute intracranial abnormality. Atrophy and microvascular ischemic changes. ACT 112: Negative or not required by law. Electronically signed by: Jared Brock M.D. 10/03/2023 10:40 AM
[2023-10-03] MEDS ORDERED: SODIUM CHLORIDE 0.9% 500 ML IV ONE (10:42)
[2023-10-03 11:26] LABS: Appearance Urine Clear (Clear); Bacteria Urine Automated Negative (Negative); Bilirubin Urine Negative (Negative); Blood Urine 3+ (Negative); Color Urine Yellow; Epithelial Cell Urine Auto >30 /lpf (0-5); Glucose Urine UA Negative (Negative); Ketones Urine Negative (Negative); Leukocyte Esterase Urine 3+ (Negative); Nitrite Urine Negative (Negative); Protein Urine 1+ (Negative); Specific Gravity Urine 1.011 (1.000-1.030); Urobilinogen Urine Negative (Negative); WBC Urine Automated >30 /hpf (0-5); pH Urine 5.5 (4.5-7.5)
--- NOTE | 2023-10-03 11:33 | History & Physical Report ---
Date of Service October 03, 2023 Assessment & Plan (1) Acute renal failure: Plan: -Admit to med/tele -Currently stable and non-toxic appearing -Noted to have a cr of 3.51 today with BUN of 71, baseline Cr is near 1.6 -Etiology is likely post-renal in nature has he was retaining approx 1L urine prior to hollins placement in the ED, patient is also on Entresto -No recent hypotension, waiting on repeat UA from hollins to rule out UTI as first sample had > 30 epithelial cells -S/P 500 mL NSS in the ED -Continue with hollins cath in place for now, Urology has been consulted as he follows with Dr. Sandra -Will obtain CT of the abd/pelvis wo con for further evaluation -Monitor intake/output, daily renal function, avoid nephrotoxic agents -SQ heparin for DVT PPX due to JORGE -HH/DMII diet with 2gm sodium and 1800 mL fluid restriction for now (2) Urinary tract infection: Plan: -Patient has a hx of recurrent UTI's in the past, likely due to his recurrent bladder outlet obstruction -Was started on Fosfomycin on 10/01 by Urology based on outpatient UA/culture results which are included in the Lab results in my note -Working with Pharmacy to select the most appropriate abx coverage for possible UTI and sacral ulcer, appreciate their help >Pharmacy recommended starting Vancomycin to cover Enterococcus, Aerococcus Urinae, and coag negative staph. Explained we could include Ceftriaxone or Cefepime to cover common urine sources and sacral ulcer >They are not opposed to Daptomycin when discussed, but the Urine culture from earlier this week did not include Daptomycin on the sensitivities >Patient's urine culture from last admission lists sensitivity to both vancomycin and daptomycin >For now will start with Daptomycin (Could cover Enterococcus and MRSA) and Cefepime (Common urine pathogens and Klebsiella 2/2 DMII hx) >Follow repeat UA, urine culture, blood cultures, and wound culture -Will consult and call [facility] as they were following last admission and he continues to grow multiple organisms in his urine -Ordered and spoke to patient's nurse regarding repeat UA while clamping hollins as first UA appears contaminated with >30 epithelial cells -Will FU with repeat UA but will likely cover for now as he was recently bacteremic with Aerococcus urinae UTI -Follow blood cultures, repeat UA and urine cultures (3) Sacral ulcer: Plan: -Patient with ongoing sacral ulcer since last admission -Exam today shows pus draining from the wound, unsure how deep the wound goes at this time -Will obtain CT of the abd/pelvis (has to be wo con due to JORGE) for further evaluation -Wound culture has been ordered -Wound care nurse consult placed, low air loss mattress, turn and position q2h -Start Cefepime and Daptomycin for now to cover both recurrent UTI and sacral ulcer, narrow abx as able based on culture and sensitivity results -If further concerns on CT will consult General Surgery/ortho as needed -Blood cultures obtained (4) Diabetes mellitus: Plan: -Hold trulicity -Monitor BSG ACHS, goal is 110-160 for now -Start conservative management with CF of 50 ACHS for now with significant JORGE -Hold CR and basal insulin for now -HH/DMII diet -Pharamcy glycemic management consult placed (5) Cardiomyopathy: Plan: -Euvolemic on exam -Holding Entresto due to JORGE -Monitor volume status (6) Incomplete emptying of bladder: Plan: -Hollins cath placed -Follow Urology consult (7) Hypertension: Plan: -Stable -Continue Carvedilol (8) S/P CABG x 3: Plan: -Continue Plavix (9) TIA (transient ischemic attack): Plan: -Continue plavix Plan The patient was discussed with Dr. 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 He remained stable while in the ED. Labs were significant for an ESR of 49, Cr of 3.51 (baseline is near 1.6), BUN of 71, and UA in process. CT of the head was read as negative for acute findings. ECG did show new bifascicular block without acute ST segment or T-wave changes. The patient was bladder scanned and found to be retaining greater than 900 cc of urine. Hollins catheter was placed with the patient draining approximately 1L of urine shortly after. Prior to admission the patient was given a 500 mL NSS bolus. At the time of the exam the patient was lying in bed in no acute distress with his sitting bedside. They state that he took a nap earlier this am. After waking he got off the couch and walked to a different chair in their family room. As he was trying to move backwards/sit down on the new chair he had a momentary episode of lightheadedness and lost his balance falling back into the chair. He momentarily sat on the chair but his momentum cause he and the chair to fall backwards, to the ground. He did hit the back of his head on the ground but denies losing consciousness. He currently denies neck pain and has mild posterior scalp pain at the time of the exam. They were surprised by the amount of urine he was retaining recently. However, he has been wearing briefs and has not been monitoring his urine output or stream as he has mainly been incontinent. He denies recent fever, chills, chest pain, heart palpitations, SOB, sough, vomiting, dysuria, diarrhea, melena and LE swelling. His states that she is concerned his known sacral ulcer is now infected as she has been noticing pus when she has been cleaning it. The wound started on his last admission, he has been followed with home health who has been using saline and bandages. His started using Bacitracin as she was concerned it was infected. He was started on Fosfomycin by Urology on 10/01 due to outpatient UA/cultures results (see culture results in my note). The patient has had one dose of Fosfomycin so far this week. He is a full code and wishes for his to make medical decisions for him if he cannot make them himself. Per chart review, the patient was recently admitted to [facility] from 08/15-08/23 due to aspiration pneumonia, gram positive bacteremia, and JORGE on CKD. His blood cultures grew Aerococcus urinae, patient's urine culture grew Alpha strep, not enterococcus, and coag negative staphylococcus, likely making his UTI the source of bacteremia. Infectious disease was consulted and recommended continuing Ceftriaxone on discharge for an additional 2 weeks. ILAN during admission was negative for vegetation. Patient initially presented with acute hypoxic respiratory failure which was thought to be due to aspiration pneumonia/pneumonitis. He was weaned to RA prior to discharge. The patient has been following up with [facility] since his last admission. Per the clinic note with Dr. Sandra on 09/25, they plan on doing a repeat cystoscopy and renal US prior to Thanksgiving. Please refer to Dr. Orta's attesation for any changes to the treatment plan Allergies Allergy/AdvReac Type Severity Reaction Status Date / Time cyclobenzaprine Allergy Unknown Unknown Verified 10/03/23 11:41 gluten Allergy Unknown GI SYMPTOMS Verified 10/03/23 11:41 oxycodone Allergy Unknown Hallucinati Verified 10/03/23 11:41 ng Penicillins Allergy Unknown RASH Verified 10/03/23 11:41 Sulfa (Sulfonamide Allergy Unknown RASH Verified 10/03/23 11:41 Antibiotics) tramadol Allergy Unknown HALLUCINATI Verified 10/03/23 11:41 ONS Ayrfuul-TWM-TtC Reductase AdvReac Unknown MUSCLE Verified 10/03/23 11:41 Inhibitor WEAKNESS, [Egwkkqn-Bgt-Opt Reductase BRAIN FOG Inhibitor] fosfomycin AdvReac Dizziness Verified 10/03/23 11:42 Home Medications Medication Instructions Recorded Confirmed Type folic acid 400 mcg tablet 0.4 mg PO QAM 02/22/22 10/03/23 History blood sugar diagnostic (FreeStyle #300 ea 07/30/22 10/03/23 Rx Lite Strips) ferrous sulfate 325 mg (65 mg 325 mg PO Q2D 12/06/22 10/03/23 History iron) tablet (iron) pravastatin 10 mg tablet 10 mg PO QAM 12/06/22 10/03/23 History finasteride 5 mg tablet (Proscar) 5 mg PO HS #90 tabs 12/17/22 10/03/23 Rx blood-glucose meter (FreeStyle #1 ea 02/08/23 10/03/23 Rx Lite Meter kit) pantoprazole 20 mg tablet,delayed 20 mg PO DAILY #30 tabs 03/04/23 10/03/23 Rx release clopidogrel 75 mg tablet (Plavix) 75 mg PO PM #90 tabs 03/14/23 10/03/23 Rx levothyroxine 50 mcg tablet 50 mcg PO QAM #90 tabs 03/19/23 10/03/23 Rx (Synthroid) acetaminophen 650 mg 650 mg PO Q8H PRN Pain 05/03/23 10/03/23 History tablet,extended release (Arthritis Pain Relief (acetaminophen) ER) clindamycin HCl 300 mg capsule 600 mg (2 x 300 mg) PO DIRECTED 06/17/23 10/03/23 Rx PRN pretreat dental appt #10 caps dulaglutide 3 mg/0.5 mL 3 mg (0.5 mL) subcut WK #2 mL 06/20/23 10/03/23 Rx subcutaneous pen injector (Trulicity) latanoprost 0.005 % eye drops 1 drp ophthalmic (eye) HS 06/21/23 10/03/23 History lancets 28 gauge (FreeStyle #300 ea 08/05/23 10/03/23 Rx Lancets) ondansetron HCl 4 mg tablet 4 mg PO Q8H PRN nausea and 09/09/23 10/03/23 Rx vomiting #30 tabs carvedilol 12.5 mg tablet 12.5 mg PO BID #180 tabs 09/24/23 10/03/23 Rx fosfomycin tromethamine 3 gram 1 packet PO Q3D #2 ea 09/30/23 10/03/23 Rx oral packet sacubitril 24 mg-valsartan 26 mg 1 tab PO BID 10/03/23 10/03/23 History tablet (Entresto) Past Med/Surg History Medical History Hx: UTI (urinary tract infection) History of recent pneumonia Seasonal allergies Pacemaker Pulsatile tinnitus of both ears Sensorineural hearing loss of both ears History of anesthesia reaction Light headedness History of pacemaker Low iron Myocardial infarct Cardiomyopathy Brain TIA CAD (coronary artery disease) Orthostatic hypotension Arthritis Pancreatic tumor GERD (gastroesophageal reflux disease) Diabetes mellitus, type 2 History of asthma Mobitz type 1 second degree AV block History of prostate cancer Hypertension Syncope Chronic obstructive pulmonary disease Stage III chronic kidney disease Spinal stenosis of lumbar region Hypothyroidism Carotid artery stenosis Hypercholesteremia Diabetes TIA (transient ischemic attack) (~2001) Surgical History History of cardiac cath S/P CABG x 3 History of cataract surgery History of esophagogastroduodenoscopy (EGD) H/O colonoscopy with polypectomy [place] teeth removed S/P lumbar laminectomy History of loop recorder History of knee replacement History of tonsillectomy and adenoidectomy H/O hernia repair Hx of cholecystectomy Family History Brother Colon cancer Prostate cancer Grandfather Rectal cancer Unknown Heart disease Cancer Hypertension Mother Diabetes Congestive heart failure Stroke Grandmother (Paternal) Stroke Grandfather (Maternal) Myocardial infarction Other No family history of adverse response to anesthesia Denies family history of Ovarian cancer Breast cancer Social History Smoking Status: Former smoker Tobacco Type: Cigarettes Second Hand Exposure: No; Do You Dip or Chew Tobacco: No; Hx Alcohol Use: No Hx Substance Use: No Preferred Language: Latvian Communication Ability: Effective Visual Impairment: No Limitations Hearing Ability: Use of Hearing Aid 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: No Beliefs That Will Affect Care: None marital status: Current Living Situation: Spouse current occupational status: retired current occupation: Retired How many Children do You have: 3 Feels Safe at Home: Yes Childhood Exposure to Second-Hand Smoke: Yes Diet: gluten free and lactose free Dental Care, Regularly: Yes Physical Activity Frequency: Daily Seatbelt Use: always Sunscreen Use: Yes Assistive Devices: Glasses, Hearing Aid - Bilateral and Walker Physical Exam 2 Physical Exam: Physical Exam: General: In no acute distress, stated age, non-toxic appearing HEENT: Normocephalic, atraumatic, no scleral icterus, pupils around round, symmetrical, and reactive to light, moist mucus membranes, trachea midline, no thyromegaly Chest/Pulm: No respiratory distress, symmetrical chest expansion, clear breath sounds throughout Cardiac: RRR, no murmurs noted Abdomen: Negative for ascites and bruising, normoactive bowel sounds, soft, non-tender to palpation throughout : Hollins catheter is in place and is draining clear, yellow urine Musculoskeletal: Symmetrical and without signs of acute trauma, upper and lower extremities with full ROM, no atrophy, spasticity, or flaccidity Extremities: Radial, dorsalis pedis, and posterior tibial pulses are intact and symmetrical, no edema noted in the BL LE's Skin: See attached photo; approximately 2 cm, circular sacral ulcer with pustulous drainage, no significant cellulitic changes around the border of the wound Neuro: Alert and oriented to person, place, month, year, and president, no focal defects, CN II-XII tested and intact, no tremors noted Psych: No acute distress, calm and cooperative during the exam Results & Data Results & Data Vital Signs (Past 12 Hours) Vital Signs Temp Pulse Pulse Resp BP BP Pulse Ox 10/03/23 11:07 70 18 148/82 H 97 10/03/23 10:06 98 10/03/23 09:49 67 10/03/23 09:26 37.1 C 70 14 120/66 98 O2 Del Method 10/03/23 11:07 Room Air 10/03/23 10:06 Room Air 10/03/23 09:49 10/03/23 09:26 Room Air Laboratory Results Abnormal lab results 10/03/23 10/03/23 10/03/23 Range/Units 09:38 09:49 11:15 RBC 3.18 L (4.70-6.10) M/uL Hgb 9.5 L (14.0-18.0) g/dl Hct 29.4 L (42.0-52.0) % RDW Std Deviation 54.9 H (36.4-46.3) fL RDW Coeff of Vinny 15.9 H (11.5-14.5) % Neut # (Auto) 6.65 H (1.40-6.50) K/uL Lymph # (Auto) 0.82 L (1.20-3.40) K/uL [place] # (Auto) 2.07 H (0.11-0.59) K/uL ESR 49 H (0-20) mm/hr Sodium 134 L (136-145) mmol/L BUN 71 H (6-23) mg/dl Creatinine 3.51 H (0.6-1.4) mg/dl BUN/Creatinine Ratio 20.2 H (10-20) Glucose 232 H (70-99(Fasting)) mg/dl AST 11 L (13-39) U/L C-Reactive Protein 8.34 H (0-0.5) mg/dl Urine Protein 1+ H (Negative) Urine Blood 3+ H (Negative) Ur Leukocyte Esterase 3+ H (Negative) Urine WBC (Auto) >30 H (0-5) /hpf Urine RBC (Auto) 10-30 H (0-4) /hpf U Epithel Cells (Auto) >30 H (0-5) /lpf Diagnostic Findings Head CT 10/03/23 09:[address] DOSE: 625.8 mGy.cm HISTORY: fall, on plavix TECHNIQUE: Multiaxial CT images of the head were performed without the use of intravenous contrast. Automated exposure control was utilized for this study. A dose lowering technique was utilized adhering to the principles of ALARA. Comparison: Head CT 06/28/2022. Findings: The paranasal sinuses and mastoid air cells are clear. The calvarium and skull base are intact. There is no mass, hematoma, midline shift, acute infarct. White matter hypodensity is nonspecific but suggestive of microvascular ischemic change. The ventricles and sulci demonstrate mild age-related involutional changes. Impression: No acute intracranial abnormality. Atrophy and microvascular ischemic changes. ACT 112: Negative or not required by law. Electronically signed by: Jared Brock M.D. 10/03/2023 10:40 AM ECG Additional Comments: Sinus rhythm with 1st degree A-V block Right bundle branch block Left anterior fascicular block Bifascicular block Abnormal ECG When compared with ECG of 17-AUG-2023 06:41, Sinus rhythm has replaced Electronic atrial pacemaker Right bundle branch block has replaced Non-specific intra-ventricular conduction block Minimal criteria for Septal infarct are no longer Present Code Status & VTE Plan Code Status Full code VTE Prophylaxis Plan VTE Prophylaxis will be ordered: Yes Supervising Physician Co-Signing Physician Notes I personally saw and examined the patient. I verified all giles points and agree with Sanjeev Levin PA-C with the following exceptions and/or additions: 83 year old male presents to the ER with generalized weakness and fall. No LOC. Feeling much improved since hollins catheter inserted in ER. O/E HS RRR, no murmurs, Chest CTAB, Abdo SNT, no CVA tenderness, sacral ulcer as per picture above A/P Urinary retention -hollins catheter inserted, consult urology UTI - in setting of urinary retention - broad spectrum antibiotics with daptomycin/cefepime as discussed above pending final cultures JORGE - post obstructive, should improve with hollins catheter now inserted Sacral ulcer - antibiotics should cover as above. Follow up blood and wound culture. Consult wound care. Possible need for surgical debridement. PG Care Time/CCT Total # of Minutes Spent Total Time Spent with Patient: Total time spent is greater than 50% in coordination of care (as documented) at patient's floor/unit and/or counseling patient: [place] [address] INT INP/OBS CARE 3/75MIN Patient Type Established Medical Decision Making High Complexity Diagnoses Acute renal failure N17.9 Urinary tract infection N39.0 Sacral ulcer L98.429 Diabetes mellitus E11.9 Cardiomyopathy I42.9 Incomplete emptying of bladder R33.9 Primary hypertension I10 Hypertension type: primary hypertension S/P CABG x 3 Z95.1 TIA (transient ischemic attack) G45.9 (7) Hypertension Hypertension type: primary hypertension Qualified Code(s): I10 - Essential (primary) hypertension
[2023-10-03 11:45] LABS: C Reactive Protein 8.34 mg/dl (0-0.5)
[2023-10-03] MEDS ORDERED: GLUCOSE 40% GEL 15 GM TUBE PO PRN (12:45)
[2023-10-03] MEDS ORDERED: DEXTROSE 50% 50 ML SYRINGE IV PRN (12:45)
[2023-10-03] MEDS ORDERED: GLUCAGON FOR INJ 1 MG VIAL SQ PRN (12:45)
[2023-10-03] MEDS ORDERED: CARBOHYDRATES FOR HYPOGLYCEMIA PO PRN (12:45)
[2023-10-03] MEDS ORDERED: GLUCOSE 10 TAB/TUBE PO PRN (12:45)
[2023-10-03] MEDS ORDERED: PHARMACY GLYCEMIC MGMT CONSULT PRN (12:45)
[2023-10-03] MEDS ORDERED: INSULIN ASPART PER UNIT CHARGE SC SCH ×2 (13:00)
[2023-10-03] MEDS ORDERED: Patient's HEIGHT &/or WEIGHT Needed SCH (13:00)
--- NOTE | 2023-10-03 13:26 | XRay Report ---
XR chest 1V portable CLINICAL HISTORY: monitor for resolution of previous pneumonia TECHNIQUE: Single frontal radiograph of the chest was obtained. Comparison: Comparison is made to chest radiograph 08/07/2023 FINDINGS: Median sternotomy wires are unchanged. Calcified aortic knob is seen. Interval resolution of previous ly noted right upper lobe airspace opacity. No evidence of pleural effusion or pneumothorax. IMPRESSION: Interval resolution of previously noted pneumonia. ACT 112: Negative or not required by law. Electronically signed by: Bryon Wilson M.D. 10/03/2023 1:24 PM
--- NOTE | 2023-10-03 13:47 | CT Scan Report ---
CT abd pelvis wo con CLINICAL HISTORY: sacral ulcer and JORGE with obstruction TECHNIQUE: Helical axial images of the abdomen and pelvis were obtained. Automated dose lowering tech niques and/or adjustment according to patient size were utilized for this exam. This exam was perfor med without intravenous contrast. CT DOSE: 827.43 mGy.cm COMPARISON: Comparison is made to CT abdomen pelvis 03/11/2022 FINDINGS: Lower chest: Bibasilar atelectasis versus scarring is seen. Liver: Unremarkable. No focal lesions are seen. Gallbladder and biliary tree: Patient is status post cholecystectomy. No intra- or extrahepatic bilia ry ductal dilation. Pancreas: Unremarkable, no focal lesions. Spleen: Unremarkable. Adrenals: Unremarkable. Kidneys and ureters: Numerous renal cysts are seen. Bilateral hydroureter is noted. Bladder: Limited evaluation due to underdistention. Reproductive organs: Unremarkable. Bowel: Diverticulosis is seen without evidence of diverticulitis. A hiatal hernia is seen. Lymph nodes Retroperitoneal: Subcentimeter lymph nodes are noted. Pelvic: Unremarkable. Mesenteric: Unremarkable. Peritoneum: Normal. Vessels: Atherosclerotic calcifications are seen. Abdominal wall: Left-sided fat-containing inguinal hernia is seen. The sacral ulcers not well visuali zed by CT but may be present at the lower sacrum/coccyx. Bones: Mild degenerative changes are seen. No sacral erosions are seen. IMPRESSION: Bilateral hydroureter and hydronephrosis without obstructing stone, possibly due to chronic outlet ob struction. A numbering no evidence of sacral erosion in this patient with history of sacral ulcer. ACT 112: Negative or not required by law. Electronically signed by: Bryon Wilson M.D. 10/03/2023 1:46 PM
[2023-10-03 14:09] LABS: Appearance Urine Cloudy (Clear); Bacteria Urine Automated Negative (Negative); Bilirubin Urine Negative (Negative); Blood Urine 2+ (Negative); Color Urine Yellow; Epithelial Cell Urine Auto 0-5 /lpf (0-5); Glucose Urine UA Negative (Negative); Ketones Urine Negative (Negative); Leukocyte Esterase Urine 3+ (Negative); Nitrite Urine Negative (Negative); Protein Urine Trace (Negative); Specific Gravity Urine 1.008 (1.000-1.030); Urobilinogen Urine Negative (Negative); WBC Urine Automated >30 /hpf (0-5)
[2023-10-03] MEDS ORDERED: CEFEPIME 2,000 MG in SYRINGE 0 ML IV STA (14:27)
--- NOTE | 2023-10-03 14:27 | Pharmacy Report ---
Pharmacy Glycemic Short Note 2 - Date of Service October 03, 2023 - Glycemic Short BSG Results (Last 24 hours): 10/03/23 09:38 Glucose 232 H OUTPATIENT ANTIDIABETIC REGIMEN: * Trulicity 3 mg SC weekly (Sundays) HbA1c: 9.1% (08/16/23) ASSESSMENT: * DAVID is an 83 year old male who presented to ED this morning following a fall at home * Subsequently found to have acute kidney injury (SCr: 3.51 mg/dL) and suspected UTI (ordered cefepime and daptomycin) * Pharmacy consulted for glycemic management for BSG of 232 mg/dL on presentation * Will be conservative with initial insulin dosing to limit hypoglycemia in dent[place] ent at risk for falls PLAN FOR INPATIENT GLYCEMIC CONTROL: * Basal insulin * Lantus 0-5-10 units SC HS (see protocol for details) * Bolus insulin * NovoLog per scale ACHS or Q6hrs while NPO * Goal Range: Low 120 mg/dL - High 150 mg/dL * Correction Factor: 30 mg/dL/unit * Nutritional / Prandial insulin per carb ratio of 1 unit per 10 grams CHO consumed
[2023-10-03] MEDS: DAPTOmycin 300 MG in SYRINGE 0 ML IV SCH (14:51)
[2023-10-03] MEDS ORDERED: DAPTOmycin 300 MG in SYRINGE 0 ML IV SCH (15:00)
--- NOTE | 2023-10-03 15:37 | Electrocardiogram Report ---
Test Reason : Blood Pressure : / mmHG Vent. Rate : 070 BPM Atrial Rate : 070 BPM P-R Int : 324 ms QRS Dur : 144 ms QT Int : 436 ms P-R-T Axes : 066 -60 019 degrees QTc Int : 470 ms Sinus rhythm with 1st degree A-V block Right bundle branch block Left anterior fascicular block Abnormal ECG When compared with ECG of 17-AUG-2023 06:41, Sinus rhythm has replaced Electronic atrial pacemaker Right bundle branch block has replaced Non-specific intra-ventricular conduction block Minimal criteria for Septal infarct are no longer Present Confirmed by Ludin Brownlee ([id number]) on 10/03/2023 3:37:15 PM Referred By: REFERRED SELF Confirmed By:Ludin Brownlee
[2023-10-03] MEDS: HEPARIN SOD 5,000 UNIT/0.5 ML VIAL SQ SCH ×2 (17:47→20:52)
--- NOTE | 2023-10-03 18:02 | Urology Consultation ---
Date of Consultation October 03, 2023 Assessment & Plan (1) JORGE (acute kidney injury): (2) Acute UTI: (3) Incomplete emptying of bladder: Plan 83-year-old male with known history of incomplete bladder emptying, now managed with Interiano catheter in place. JORGE is most likely postrenal due to incomplete bladder emptying. Continue to monitor creatinine and maintain Interiano until outpatient follow-up.. Blood and urine cultures are pending. He is currently on cefepime. Would r ecommend continuing broad-spectrum antibiotics, narrowing coverage as culture data becomes available. If catheter becomes obstructed, can hand irrigate to remove clot/obstruction. Okay to exchange catheter if needed. Urology will sign off for now. Please call with any questions or concerns. History of Present Illness Attending Physician: Jarrett Orta MD History of Present Illness This is an 83-year-old male followed by urology for BPH, urinary retention, rec urrent urinary tract infections. He presented to the emergency department on 10/03/2023 after sustaining a fall at home. He fell backwards and hit the back of his head but did not lose consciousness. He was brought in by EMS. Upon admission, his raised concern for worsening possible infection of his sacral ulcer. He was also found to have elevated postvoid residual. Due to history of elevated PVR and current elevated creatinine, Interiano catheter was placed by staff in the emergency department. Patient describes some discomfort with placement, but catheter is currently draining well. Labs reviewed: 10/03/2023: WBC 9.77, hemoglobin 9.5, creatinine 3.51 (last check 09/03/2023 was 1.65), glucose 232 Urinalysis from 10/03/2023 with 3+ leukocyte esterase, negative bacteria, negative nitrites. He had a CT scan of the abdomen pelvis performed on 10/03/2023. I independently reviewed these images. Both kidneys are in normal position. There are cysts bilaterally. There is some perinephric stranding bilaterally. There is some hydronephrosis bilaterally and ureteral dilation extending down to the level of the bladder. His bladder is decompressed with a Interiano catheter in place. Allergies Allergy/AdvReac Type Severity Reaction Status Date / Time cyclobenzaprine Allergy Unknown Unknown Verified 10/03/23 11:41 gluten Allergy Unknown GI SYMPTOMS Verified 11/16/23 11:41 oxycodone Allergy Unknown Hallucinati Verified 10/03/23 11:41 ng Penicillins Allergy Unknown RASH Verified 10/03/23 11:41 Sulfa (Sulfonamide Allergy Unknown RASH Verified 10/03/23 11:41 Antibiotics) tramadol Allergy Unknown HALLUCINATI Verified 10/03/23 11:41 ONS Qncdmxg-BWV-RtR Reductase AdvReac Unknown MUSCLE Verified 10/03/23 11:41 Inhibitor WEAKNESS, [Hzjrdxb-Nsp-Jkx Reductase BRAIN FOG Inhibitor] fosfomycin AdvReac Dizziness Verified 10/03/23 11:42 Home Medications Medication Instructions Recorded Confirmed Type folic acid 400 mcg tablet 0.4 mg PO QAM 02/22/22 10/03/23 History blood sugar diagnostic (FreeStyle #300 ea 07/30/22 10/03/23 Rx Lite Strips) ferrous sulfate 325 mg (65 mg 325 mg PO Q2D 12/06/22 10/03/23 History iron) tablet (iron) pravastatin 10 mg tablet 10 mg PO QAM 12/06/22 10/03/23 History finasteride 5 mg tablet (Proscar) 5 mg PO HS #90 tabs 12/17/22 10/03/23 Rx blood-glucose meter (FreeStyle #1 ea 02/08/23 10/03/23 Rx Lite Meter kit) pantoprazole 20 mg tablet,delayed 20 mg PO DAILY #30 tabs 03/04/23 10/03/23 Rx release clopidogrel 75 mg tablet (Plavix) 75 mg PO PM #90 tabs 03/14/23 10/03/23 Rx levothyroxine 50 mcg tablet 50 mcg PO QAM #90 tabs 03/19/23 10/03/23 Rx (Synthroid) acetaminophen 650 mg 650 mg PO Q8H PRN Pain 05/03/23 10/03/23 History tablet,extended release (Arthritis Pain Relief (acetaminophen) ER) clindamycin HCl 300 mg capsule 600 mg (2 x 300 mg) PO DIRECTED 06/17/23 10/03/23 Rx PRN pretreat dental appt #10 caps dulaglutide 3 mg/0.5 mL 3 mg (0.5 mL) subcut WK #2 mL 06/20/23 10/03/23 Rx subcutaneous pen injector (Trulicity) latanoprost 0.005 % eye drops 1 drp ophthalmic (eye) HS 06/21/23 10/03/23 History lancets 28 gauge (FreeStyle #300 ea 08/05/23 10/03/23 Rx Lancets) ondansetron HCl 4 mg tablet 4 mg PO Q8H PRN nausea and 09/09/23 10/03/23 Rx vomiting #30 tabs carvedilol 12.5 mg tablet 12.5 mg PO BID #180 tabs 09/24/23 10/03/23 Rx fosfomycin tromethamine 3 gram 1 packet PO Q3D #2 ea 09/30/23 10/03/23 Rx oral packet sacubitril 24 mg-valsartan 26 mg 1 tab PO BID 10/03/23 10/03/23 History tablet (Entresto) Patient History Medical History Hx: UTI (urinary tract infection) History of recent pneumonia Seasonal allergies Pacemaker Pulsatile tinnitus of both ears Sensorineural hearing loss of both ears History of anesthesia reaction Light headedness History of pacemaker Low iron Myocardial infarct Cardiomyopathy Brain TIA CAD (coronary artery disease) Orthostatic hypotension Arthritis Pancreatic tumor GERD (gastroesophageal reflux disease) Diabetes mellitus, type 2 History of asthma Mobitz type 1 second degree AV block History of prostate cancer Hypertension Syncope Chronic obstructive pulmonary disease Stage III chronic kidney disease Spinal stenosis of lumbar region Hypothyroidism Carotid artery stenosis Hypercholesteremia Diabetes TIA (transient ischemic attack) (~2001) Surgical History History of cardiac cath S/P CABG x 3 History of cataract surgery History of esophagogastroduodenoscopy (EGD) H/O colonoscopy with polypectomy [place] teeth removed S/P lumbar laminectomy History of loop recorder History of knee replacement History of tonsillectomy and adenoidectomy H/O hernia repair Hx of cholecystectomy Family History Brother Colon cancer Prostate cancer Grandfather Rectal cancer Unknown Heart disease Cancer Hypertension Mother Diabetes Congestive heart failure Stroke Grandmother (Paternal) Stroke Grandfather (Maternal) Myocardial infarction Other No family history of adverse response to anesthesia Denies family history of Ovarian cancer Breast cancer Social History Smoking Status: Former smoker Tobacco Type: Cigarettes Second Hand Exposure: No; Do You Dip or Chew Tobacco: No; Hx Alcohol Use: Yes Alcohol type: hard liquor Hx Substance Use: No Preferred Language: Persian Communication Ability: Effective Visual Impairment: No Limitations Hearing Ability: Use of Hearing Aid Perianesthesia Nurse Required: No Beliefs That Will Affect Care: None marital status: Current Living Situation: Spouse current occupational status: retired current occupation: Retired How many Children do You have: 3 Feels Safe at Home: Yes Childhood Exposure to Second-Hand Smoke: Yes Diet: gluten free and lactose free Dental Care, Regularly: Yes Physical Activity Frequency: Daily Seatbelt Use: always Sunscreen Use: Yes Assistive Devices: Glasses, Hearing Aid - Bilateral and Walker Review of Systems Review of Systems: 12 point review of systems negative exce pt for otherwise indicated. Physical Exam Constitutional: well developed and well nourished; no acute distress Eyes: + anicteric sclerae; pupils not irregula r Respiratory: normal respiratory effort; no respiratory distress, does not use accessory muscles and no cough Cardiovascular: well perfused Gastrointestinal (Abdomen): Inspection/Auscultation: abdomen normal to inspection; abdomen not distended Musculoskeletal: Extremities: extremities normal to inspection Skin: normal turgor; no rashes and no lesions Neurologic: moves all extremities and awake Psychiatric: Orientation: alert and oriented x 3 Results & Data Vital Signs (Past 12 Hours) Vital Signs Temp Pulse Pulse Resp BP BP Pulse Ox 10/03/23 16:43 72 18 144/72 H 98 10/03/23 14:07 10/03/23 14:06 69 18 138/84 99 10/03/23 13:47 74 10/03/23 11:07 70 18 148/82 H 97 10/03/23 10:06 98 10/03/23 09:49 67 10/03/23 09:26 37.1 C 70 14 120/66 98 Pulse Ox O2 Del Method O2 Del Method 10/03/23 16:43 Room Air 10/03/23 14:07 99 Room Air 10/03/23 14:06 Room Air 10/03/23 13:47 10/03/23 11:07 Room Air 10/03/23 10:06 Room Air 10/03/23 09:49 10/03/23 09:26 Room Air PG Care Time/CCT Total # of Minutes Spent Total Time Spent with Patient: Total time spent is greater than 50% in coordination of care (as documented) at patient's floor/unit and/or counseling patient: Coding Level of Care Code 04755 INT INP/OBS CARE 2/55MIN Diagnoses JORGE (acute kidney injury) N17.9 Acute UTI N39.0 Incomplete emptying of bladder R33.9
[2023-10-03] MEDS: INSULIN ASPART PER UNIT CHARGE SC SCH ×3 (18:12→22:44)
[2023-10-03] MEDS: CLOPIDOGREL BISULFATE 75 MG TAB PO SCH (20:49)
[2023-10-03] MEDS: DOCUSATE SODIUM 100 MG CAP PO SCH (20:49)
[2023-10-03] MEDS: LATANOPROST 0.005% OP SOLN 2.5 ML BTL OP SCH ×2 (20:50→21:54)
[2023-10-03] MEDS: FINASTERIDE 5 MG TAB PO SCH (20:50)
[2023-10-03] MEDS: POLYETHYLENE (MIRALAX) 17 GM PACK PO SCH (20:51)
[2023-10-03] MEDS ORDERED: LANTUS PER UNIT CHARGE SC SCH (21:00)
[2023-10-03] MEDS ORDERED: VALSARTAN/SACUBITRIL 26/24MG TAB PO SCH (21:00)
[2023-10-04] MEDS: CEFEPIME 1,000 MG in SYRINGE 0 ML IV SCH ×2 (03:53→14:08)
[2023-10-04] MEDS: INSULIN ASPART PER UNIT CHARGE SC SCH ×5 (03:54→20:09)
[2023-10-04 05:16] LABS: Basophils # (auto) 0.04 K/uL (0.00-0.20); Basophils % (auto) 0.6 %; Eosinophils # (auto) 0.11 K/uL (0.00-0.50); Eosinophils % (auto) 1.6 %; Hematocrit (blood only) 27.6 % (42.0-52.0); Hemoglobin 9.2 g/dl (14.0-18.0); Immature Granulocytes # (auto) 0.08 K/uL (0.01-0.20); Immature Granulocytes % (auto) 1.2 %; Lymphocytes # (auto) 1.09 K/uL (1.20-3.40); Lymphocytes % (auto) 16.1 %; Mean Corpuscular Hemoglobin 29.8 pg (25.0-34.0); Mean Corpuscular Hgb Conc 33.3 g/dL (32.0-36.0); Mean Corpuscular Volume 89.3 fL (80.0-100.0); Mean Platelet Volume 10.9 fL (9.4-12.4); Neutrophils # (auto) 3.77 K/uL (1.40-6.50); Neutrophils % (auto) 55.5 %; Platelet Count 168 K/uL (130-400); RDW Coefficient of Variation 15.7 % (11.5-14.5); RDW Standard Deviation 51.4 fL (36.4-46.3); Red Blood Count 3.09 M/uL (4.70-6.10); White Blood Count 6.79 K/ul (4.8-10.8)
[2023-10-04 05:29] LABS: BUN Creatinine Ratio 20.9 (10-20); Calcium 8.9 mg/dl (8.6-10.3); Creatinine Clr Calc Pharmacy 20.7 ml/min; Est GFR (African American) 21.8 ml/min; Est GFR (Non-African American) 18.8 ml/min; Magnesium 1.9 mg/dl (1.7-2.4); Potassium 4.3 mmol/L (3.5-5.1)
[2023-10-04] MEDS: HEPARIN SOD 5,000 UNIT/0.5 ML VIAL SQ SCH ×3 (06:22→20:07)
[2023-10-04] MEDS: LEVOTHYROXINE SODIUM 50 MCG TABLET PO SCH (06:23)
--- NOTE | 2023-10-04 07:32 | Hospitalist Progress Note ---
Date of Service October 04, 2023 Assessment & Plan (1) JORGE (acute kidney injury): Plan: #JORGE #ARF #Urinary Retention JORGE on CKD. Baseline ~ 1.6. 3.51 on admission. Likely post renal as significant urinary retention. Hollins placed. Entresto held. Creatinine improving. Urology consult - rec Hollins for now Strict Is and Os Avoid nephrotoxic agents #Recurrent UTI Patient started on Fosfomycin 10/01 by urology. Admission UA consistent with infectious etiology. Urine culture pending. Previously grew Aerococcus urinae in blood, likely urinary source. On cefepime to cover common urinary sources in addition to sacral wound. Daptomycin for enterococcus and MRSA. ID on board - appreciate recs ID consult - appreciate recs f/u Bcx/Ucx Abx: Cefepime started 10/03 - sacral wound and common urinary bugs Daptomycin started 10/03 - enterococcus and MRSA UCx 08/15 - alpha strep (not enterococcus), coag neg staph [resistant to oxacillin and bactrim] BCx 08/15 - Aerococcus urinae [sensitive to penicillin, CTX, and vanc] #Sacral Ulcer Patient with ongoing sacral ulcer with purulent discharge. CT A&P without good visualization of the sacral ulcers. Wound culture obtained. Wound care on board. Abx as above. Consider surg consult if wound needs debridement. f/u wcx #Diabetic Hold trulicity while inpatient. Monitor BSG ACHS, goal 110-160 for now. Holding CR and basal insulin. CF conservative at 50. Pharmacy glycemic management consult placed. #HFpEF 55-60% #s/p CABG x 3 #HTN Euvolemic on exam. Holding Entresto due to JROGE. Monitor volume status. Continue carvedilol and Plavix Code status: full DVT ppx: heparin SQ, Plavix FENGI: HH, carb consistent, fluid and sodium restriction Dispo: MedSurg w/tele (2) Acute UTI: (3) Incomplete emptying of bladder: (4) Acute renal failure: (5) Urinary tract infection: (6) Sacral ulcer: (7) Diabetes mellitus: (8) Cardiomyopathy: (9) Hypertension: (10) S/P CABG x 3: (11) TIA (transient ischemic attack): Admission and Anticipated Discharge Date Admission Date: October 03, 2023 Supervising Physician Co-Signing Physician Notes Resident Physician Supervision Note: I independently interviewed and examined the patient and verified the giles history and physical, reviewed labs and image studies and agree with resident findings and care plan. Conversive but unable to have conversation likely from ? dementia. Aware that his memory is not good. No urinary problem. No pain. Post obstructive JORGE - urinary cath in place. urology consulted. to irrigate hollins if blocked. Recurrent UTI - IV cefepime. cultures pending Sacral ulcer - wound care following Heparin SQ Physical Exam 2 Physical Exam: Gen: non-toxic appearing male in NAD HEENT: AT NC, no scleral icterus, MMM Resp: CTAN no wheezing no increased work of breathing CV: RRR no m/r/g clinically well perfused Abd: soft, non-ditended MSK: no obvious deformities Skin: wound as noted below, otherwise no obvious bruising or rashes Neuro: alert and oriented Psych: appropriate mood and affect Results & Data Results & Data Vital Signs (Past 12 Hours) Vital Signs Temp Pulse Resp BP Pulse Ox O2 Del Method 10/04/23 05:21 36.5 C 71 18 148/75 H 98 Room Air 10/03/23 19:50 36.8 C 88 18 168/79 H 96 Room Air Laboratory Results 10/04/23 04:34 10/04/23 04:34 Diagnostic Findings Chest X-Ray 10/03/23 12:34 FINDINGS: Median sternotomy wires are unchanged. Calcified aortic knob is seen. Interval resolution of previously noted right upper lobe airspace opacity. No evidence of pleural effusion or pneumothorax. IMPRESSION: Interval resolution of previously noted pneumonia. Abdomen/Pelvis CT 10/03/23 12:45 FINDINGS: Lower chest: Bibasilar atelectasis versus scarring is seen. Liver: Unremarkable. No focal lesions are seen. Gallbladder and biliary tree: Patient is status post cholecystectomy. No intra- or extrahepatic biliary ductal dilation. Pancreas: Unremarkable, no focal lesions. Spleen: Unremarkable. Adrenals: Unremarkable. Kidneys and ureters: Numerous renal cysts are seen. Bilateral hydroureter is noted. Bladder: Limited evaluation due to underdistention. Reproductive organs: Unremarkable. Bowel: Diverticulosis is seen without evidence of diverticulitis. A hiatal hernia is seen. Lymph nodes Retroperitoneal: Subcentimeter lymph nodes are noted. Pelvic: Unremarkable. Mesenteric: Unremarkable. Peritoneum: Normal. Vessels: Atherosclerotic calcifications are seen. Abdominal wall: Left-sided fat-containing inguinal hernia is seen. The sacral ulcers not well visualized by CT but may be present at the lower sacrum/coccyx. Bones: Mild degenerative changes are seen. No sacral erosions are seen. IMPRESSION: Bilateral hydroureter and hydronephrosis without obstructing stone, possibly due to chronic outlet obstruction. A numbering no evidence of sacral erosion in this patient with history of sacral ulcer. Resident Activity Tracking Resident Involvement: Resident Care Provided Care Provided: Adult Hospital Medicine (9) Hypertension Hypertension type: primary hypertension Qualified Code(s): I10 - Essential (primary) hypertension
--- NOTE | 2023-10-04 08:50 | Pharmacy Report ---
Pharmacy Glycemic Short Note 2 - Date of Service October 04, 2023 - Glycemic Short BSG Results (Last 24 hours): 10/03/23 10/03/23 10/03/23 09:38 17:47 20:14 Glucose 232 H POC Glucose 180 H 169 H 10/04/23 10/04/23 04:34 08:20 Glucose 104 H POC Glucose 146 H OUTPATIENT ANTIDIABETIC REGIMEN: * Trulicity 3 mg SC weekly (Sundays) HbA1c: 9.1% (08/16/23) ASSESSMENT: 10/04/23: * BSGs improved yesterday w/ only 5 units of bolus insulin * Fasting BSG of 146 mg/dL this morning * Will continue conservative insulin dosing at this time * BSG increased to 192 mg/dL at lunch, will hold off on tightening Novolog for now, but will start low-dose basal insulin 10/03/23: * DAVID is an 83 year old male who presented to ED this morning following a fall at home * Subsequently found to have acute kidney injury (SCr: 3.51 mg/dL) and suspected UTI (ordered cefepime and daptomycin) * Pharmacy consulted for glycemic management for BSG of 232 mg/dL on presentation * Will be conservative with initial insulin dosing to limit hypoglycemia in patient at risk for falls PLAN FOR INPATIENT GLYCEMIC CONTROL: * Basal insulin * Lantus 5 units SC daily * Bolus insulin * NovoLog per scale ACHS or Q6hrs while NPO * Goal Range: Low 120 mg/dL - High 150 mg/dL * Correction Factor: 30 mg/dL/unit * Nutritional / Prandial insulin per carb ratio of 1 unit per 10 grams CHO consumed
[2023-10-04] MEDS: FERROUS SULFATE 325 MG TAB PO SCH (08:53)
[2023-10-04] MEDS: DOCUSATE SODIUM 100 MG CAP PO SCH ×2 (08:53→20:10)
[2023-10-04] MEDS: PANTOprazole 40 MG TAB PO SCH (08:53)
[2023-10-04] MEDS: POLYETHYLENE (MIRALAX) 17 GM PACK PO SCH ×2 (08:53→20:10)
--- NOTE | 2023-10-04 08:55 | Infectious Disease Consult ---
Date of Consultation October 04, 2023 Assessment & Plan (1) Sacral ulcer: (2) JORGE (acute kidney injury): Plan 83-year-old male with a past medical history TIA, CAD, cardiomyopathy, carotid artery stenosis, Mobitz type I second-degree AV block status post pacer, diabetes mellitus type 2, prostate cancer ,lumbar spinal stenosis, long history of incomplete emptying, lower urinary tract symptoms presents sp fall He was admitted to [facility] on 08/15 with weakness, fever, chills. He was diagnosed with Aerococcus urinae bacteremia though to be from a urinary source. He developed urinary retention and required a hollins catheter. He completed 2 weeks of ceftriaxone at rehab. He followed up with urology on 09/25. He had urinary symptoms during the visit and a Urine cx pcr was obtained; Results were polymicrobial and he was started on Fosfomycin. His hollins was removed about 1 week ago. He now present on 10/03 after a fall at home. He feels he tripped and fell backward and hit his head. He is a poor historian. He has a chronic sacral ulcer but denies increased pain at the site. He has some serous drainage. He denies fever,chill,sweats, dysuria, abdominal pain . In the Ed he is HDS, Labs noted for wbc 9.77, bun 71, cr 3.51 ( last was 1.65) . Ua with >30 wbc, >30 Epi cells, 3 + leuk est.He was found to have an elevated post void residual. A hollins was placed. Ctab showed perinephric stranding bilaterally, Bilateral hydroureter and hydronephrosis without obstructing stone, possibly due to chronic outlet obstruction. There was no evidence of sacral erosion at sacral ulcer site. UC and BC obtained. He was started on Daptomycin and Cefepime. Id consulted for recurrent Uti. MIcro BC 10/03 NGTD UC # 1 10/03NGTD UC # 2 10/03 NGTD Wound gram stain 10/03 GPC , GPR, culture pending Prior Micro 09/25 Urine pcr ( outpt) CONS >100K, Aerococcus Urinae >100K, Actinotignum schaalli 10-50K, E faecalis 10-50K, Ecoli <10K BC 08/15 4/4 bottles Aerococcus urinea UC 08/15 . 100K alph hem strep, 50,000 CONS ( R oxa) BC 08/17 sterile #Fall #Urinary retention, hollins placed #Recent Aerococcus urinae septicemia # PPM in place #recurrent UTIs # Loop recorder in place # History of R knee replacement # PCN/Sulfa allergy: rash # Fosfomycin S/E dizzy # Chronic sacral ulcer- does not appear infected He has a history of incomplete emptying and has had intermittent urinary retention for some time despite abx treatment for UTIs. Will treat at this time. His sacral ulcer does not appear acutely infected. It is not tender, red or warm to touch. He has mild serous drainage. it appears the wound was cultured in the ED. I expect it will grow skin and GI nahomi given the location. Continue Daptomycin 4 mg/kg IV q 48 hours for urine coverage Changed Cefepime to Ceftriaxone 1 g iv daily for urine coverage. FU UC FU BC Thank you for this consultation. ID will continue to follow. Evan Vazquez MD, MPH Infectious Disease [facility], ID Division Call [phone] with questions. Consultation Information Consultation was provided via telemedicine using two-way real-time interactive telecommunication between the patient and the telemedicine provider. For the duration of the visit, the provider was performing the assessment from a different facility than the patient. This includesuse of bluetooth stethoscope forauscultationperformed by the telepresenter that the telemedicine provider can hear if described in the physical exam. Rod Tape Operator contact information: Please call [facility] Call Center . (Phone Number For Physician Use Only) After establishing a telemedicine visit, patient was: Patient was verified with two unique identifiers Time Spent with Patient: Initial => 75 min History of Present Illness Reason for Consultation: "Recurrent multiorganism UTI" Requesting Physician: BALBIR Marcelo Attending Physician: Heidy Mckeon MD History of Present Illness 83-year-old male with a past medical history TIA, CAD, cardiomyopathy, carotid artery stenosis, Mobitz type I second-degree AV block status post pacer, diabetes mellitus type 2, prostate cancer ,lumbar spinal stenosis, long history of incomplete emptying, lower urinary tract symptoms presents sp fall He was admitted to [facility] recenty on 08/15 with weakness, fever, chills. He was diagnosed with Aerococcus urinae bacteremia though to be from a urinary source. He developed urinary retention and required a hollins catheter. He completed 2 weeks of ceftriaxone at rehab. He followed up with urology on 09/25. He had urinary symptoms during the visit and a Urine cx pcr was obtained; Results were polymicrobial and he was started on Fosfomycin. His hollins was removed about 1 week ago. He now present on 10/03 after a fall at home. He feels he tripped and fell backward and hit his head. He is a poor historian. He has a chronic sacral ulcer but denies increased pain at the site. He has some serous drainage. He denies fever,chill,sweats, dysuria, abdominal pain . In the Ed he is HDS, Labs noted for wbc 9.77, bun 71, cr 3.51 ( last was 1.65) . Ua with >30 wbc, >30 Epi cells, 3 + leuk est.He was found to have an elevated post void residual. A hollins was placed. Ctab showed perinephric stranding bilaterally, Bilateral hydroureter and hydronephrosis without obstructing stone, possibly due to chronic outlet obstruction. There was no evidence of sacral erosion at sacral ulcer site. UC and BC obtained. He was started on Daptomycin and Cefepime. Id consulted for recurrent Uti. Allergies Allergy/AdvReac Type Severity Reaction Status Date / Time cyclobenzaprine Allergy Unknown Unknown Verified 10/03/23 11:41 gluten Allergy Unknown GI SYMPTOMS Verified 10/03/23 11:41 oxycodone Allergy Unknown Hallucinati Verified 10/03/23 11:41 ng Penicillins Allergy Unknown RASH Verified 10/03/23 11:41 Sulfa (Sulfonamide Allergy Unknown RASH Verified 10/03/23 11:41 Antibiotics) tramadol Allergy Unknown HALLUCINATI Verified 10/03/23 11:41 ONS [id number] Reductase AdvReac Unknown MUSCLE Verified 10/03/23 11:41 Inhibitor WEAKNESS, [[id number] Reductase BRAIN FOG Inhibitor] fosfomycin AdvReac Dizziness Verified 10/03/23 11:42 Home Medications Medication Instructions Recorded Confirmed Type folic acid 400 mcg tablet 0.4 mg PO QAM 02/22/22 10/03/23 History blood sugar diagnostic (Devan #300 ea 07/30/22 10/03/23 Rx Lite Strips) ferrous sulfate 325 mg (65 mg 325 mg PO Q2D 12/06/22 10/03/23 History iron) tablet (iron) pravastatin 10 mg tablet 10 mg PO QAM 12/06/22 10/03/23 History finasteride 5 mg tablet (Proscar) 5 mg PO HS #90 tabs 12/17/22 10/03/23 Rx blood-glucose meter (FreeStyle #1 ea 02/08/23 10/03/23 Rx Lite Meter kit) pantoprazole 20 mg tablet,delayed 20 mg PO DAILY #30 tabs 03/04/23 10/03/23 Rx release clopidogrel 75 mg tablet (Plavix) 75 mg PO PM #90 tabs 03/14/23 10/03/23 Rx levothyroxine 50 mcg tablet 50 mcg PO QAM #90 tabs 03/19/23 10/03/23 Rx (Synthroid) acetaminophen 650 mg 650 mg PO Q8H PRN Pain 05/03/23 10/03/23 History tablet,extended release (Arthritis Pain Relief (acetaminophen) ER) clindamycin HCl 300 mg capsule 600 mg (2 x 300 mg) PO DIRECTED 06/17/23 10/03/23 Rx PRN pretreat dental appt #10 caps dulaglutide 3 mg/0.5 mL 3 mg (0.5 mL) subcut WK #2 mL 06/20/23 10/03/23 Rx subcutaneous pen injector (Trulicity) latanoprost 0.005 % eye drops 1 drp ophthalmic (eye) HS 06/21/23 10/03/23 History lancets 28 gauge (FreeStyle #300 ea 08/05/23 10/03/23 Rx Lancets) ondansetron HCl 4 mg tablet 4 mg PO Q8H PRN nausea and 09/09/23 10/03/23 Rx vomiting #30 tabs carvedilol 12.5 mg tablet 12.5 mg PO BID #180 tabs 09/24/23 10/03/23 Rx fosfomycin tromethamine 3 gram 1 packet PO Q3D #2 ea 09/30/23 10/03/23 Rx oral packet sacubitril 24 mg-valsartan 26 mg 1 tab PO BID 10/03/23 10/03/23 History tablet (Entresto) Patient History Medical History Hx: UTI (urinary tract infection) History of recent pneumonia Seasonal allergies Pacemaker Pulsatile tinnitus of both ears Sensorineural hearing loss of both ears History of anesthesia reaction Light headedness History of pacemaker Low iron Myocardial infarct Cardiomyopathy Brain TIA CAD (coronary artery disease) Orthostatic hypotension Arthritis Pancreatic tumor GERD (gastroesophageal reflux disease) Diabetes mellitus, type 2 History of asthma Mobitz type 1 second degree AV block History of prostate cancer Hypertension Syncope Chronic obstructive pulmonary disease Stage III chronic kidney disease Spinal stenosis of lumbar region Hypothyroidism Carotid artery stenosis Hypercholesteremia Diabetes TIA (transient ischemic attack) (~2001) Surgical History History of cardiac cath S/P CABG x 3 History of cataract surgery History of esophagogastroduodenoscopy (EGD) H/O colonoscopy with polypectomy [place] teeth removed S/P lumbar laminectomy History of loop recorder History of knee replacement History of tonsillectomy and adenoidectomy H/O hernia repair Hx of cholecystectomy Family History Brother Colon cancer Prostate cancer Grandfather Rectal cancer Unknown Heart disease Cancer Hypertension Mother Diabetes Congestive heart failure Stroke Grandmother (Paternal) Stroke Grandfather (Maternal) Myocardial infarction Other No family history of adverse response to anesthesia Denies family history of Ovarian cancer Breast cancer Social History Smoking Status: Former smoker Tobacco Type: Cigarettes Second Hand Exposure: No; Do You Dip or Chew Tobacco: No; Hx Alcohol Use: No Hx Substance Use: No Preferred Language: Belgian Communication Ability: Effective Visual Impairment: No Limitations Hearing Ability: Use of Hearing Aid Spot Checker Required: No Beliefs That Will Affect Care: None marital status: Current Living Situation: Spouse current occupational status: retired current occupation: Retired How many Children do You have: 3 Feels Safe at Home: Yes Childhood Exposure to Second-Hand Smoke: Yes Diet: gluten free and lactose free Dental Care, Regularly: Yes Physical Activity Frequency: Daily Seatbelt Use: always Sunscreen Use: Yes Assistive Devices: Cane, Raised Toilet Seat and Walker Review of System A 10 point ROS obtained. Pertinent Positives as per HPI Physical Exam Physical Exam: Gen- NAD, comfortable Heent- Anicteric sclera, EOMI Neck- supple Lungs- No increased work of breathing Abdomen- soft, NT, ND - hollins in place, draining clear urine No suprapubic or CVA tenderness Ext- No edema Neuro- AAO *3, forgetful, poor historian Skin- sacral wound- visualized via live visit AND photo in MR. Does not appear actively infected. Chronic surrounding hyper pigmented area, NOT tender, Not wa rm, No erythema. Mild serous drainage on bandage. No areas of necrosis. Results & Data Vital Signs (Past 12 Hours) Vital Signs Temp Pulse Pulse Pulse Resp BP Pulse Ox 10/04/23 08:07 36.5 C 72 18 165/80 H 98 10/04/23 08:05 70 10/04/23 05:21 36.5 C 71 18 148/75 H 98 O2 Del Method 10/04/23 08:07 Room Air 10/04/23 08:05 10/04/23 05:21 Room Air Laboratory Results Laboratory Results - last 48 hr 10/03/23 10/03/23 10/03/23 09:38 09:49 09:50 WBC 9.77 RBC 3.18 L Hgb 9.5 L Hct 29.4 L MCV 92.5 MCH 29.9 MCHC 32.3 RDW Std Deviation 54.9 H RDW Coeff of Vinny 15.9 H Plt Count 167 MPV 11.2 Immature Gran % (Auto) 1.1 Neut % (Auto) 68.1 Lymph % (Auto) 8.4 Coles % (Auto) 21.2 Eos % (Auto) 0.8 Baso % (Auto) 0.4 Neut # (Auto) 6.65 H Lymph # (Auto) 0.82 L Coles # (Auto) 2.07 H Eos # (Auto) 0.08 Baso # (Auto) 0.04 Immature Gran # (Auto) 0.11 ESR 49 H PT 11.4 INR 1.0 Sodium 134 L Potassium 5.1 Chloride 103 Carbon Dioxide 24 Anion Gap 7 BUN 71 H Creatinine 3.51 H Est Cr Clr Drug Dosing Not Reportable Est GFR ( Amer) 17.8 Est GFR (Non-Af Amer) 15.4 BUN/Creatinine Ratio 20.2 H Glucose 232 H POC Glucose Calcium 9.1 Magnesium Total Bilirubin 0.5 AST 11 L ALT 7 Alkaline Phosphatase 61 Troponin I High Sens 12.8 C-Reactive Protein 8.34 H Total Protein 6.6 Albumin 3.7 Globulin 2.9 Albumin/Globulin Ratio 1.3 Lipase 17 Procalcitonin < 0.05 Urine Color Urine Appearance Urine pH Ur Specific Alma Urine Protein Urine Glucose (UA) Urine Ketones Urine Blood Urine Nitrite Urine Bilirubin Urine Urobilinogen Ur Leukocyte Esterase Urine WBC (Auto) Urine RBC (Auto) U Hyaline Cast (Auto) U Epithel Cells (Auto) Urine Bacteria (Auto) Ur Renal Epithelial Cell Urine Yeast Nasal Screen MRSA (PCR) 10/03/23 10/03/23 10/03/23 11:15 17:47 20:14 WBC RBC Hgb Hct MCV MCH MCHC RDW Std Deviation RDW Coeff of Vinny Plt Count MPV Immature Gran % (Auto) Neut % (Auto) Lymph % (Auto) Coles % (Auto) Eos % (Auto) Baso % (Auto) Neut # (Auto) Lymph # (Auto) Coles # (Auto) Eos # (Auto) Baso # (Auto) Immature Gran # (Auto) ESR PT INR Sodium Potassium Chloride Carbon Dioxide Anion Gap BUN Creatinine Est Cr Clr Drug Dosing Est GFR ( Amer) Est GFR (Non-Af Amer) BUN/Creatinine Ratio Glucose POC Glucose 180 H 169 H Calcium Magnesium Total Bilirubin AST ALT Alkaline Phosphatase Troponin I High Sens C-Reactive Protein Total Protein Albumin Globulin Albumin/Globulin Ratio Lipase Procalcitonin Urine Color Yellow Urine Appearance Clear Urine pH 5.5 Ur Specific Alma 1.011 Urine Protein 1+ H Urine Glucose (UA) Negative Urine Ketones Negative Urine Blood 3+ H Urine Nitrite Negative Urine Bilirubin Negative Urine Urobilinogen Negative Ur Leukocyte Esterase 3+ H Urine WBC (Auto) >30 H Urine RBC (Auto) 10-30 H U Hyaline Cast (Auto) 1-5 U Epithel Cells (Auto) >30 H Urine Bacteria (Auto) Negative Ur Renal Epithelial Cell Not Reportable Urine Yeast Nasal Screen MRSA (PCR) 10/03/23 10/03/23 10/04/23 21:50 Unknown 04:34 WBC 6.79 RBC 3.09 L Hgb 9.2 L Hct 27.6 L MCV 89.3 MCH 29.8 MCHC 33.3 RDW Std Deviation 51.4 H RDW Coeff of Vinny 15.7 H Plt Count 168 MPV 10.9 Immature Gran % (Auto) 1.2 Neut % (Auto) 55.5 Lymph % (Auto) 16.1 Coles % (Auto) 25.0 Eos % (Auto) 1.6 Baso % (Auto) 0.6 Neut # (Auto) 3.77 Lymph # (Auto) 1.09 L Coles # (Auto) 1.70 H Eos # (Auto) 0.11 Baso # (Auto) 0.04 Immature Gran # (Auto) 0.08 ESR PT INR Sodium 138 Potassium 4.3 Chloride 106 Carbon Dioxide 22 Anion Gap 10 BUN 62 H Creatinine 2.97 H D Est Cr Clr Drug Dosing 20.7 Est GFR ( Amer) 21.8 Est GFR (Non-Af Amer) 18.8 BUN/Creatinine Ratio 20.9 H Glucose 104 H POC Glucose Calcium 8.9 Magnesium 1.9 Total Bilirubin AST ALT Alkaline Phosphatase Troponin I High Sens C-Reactive Protein Total Protein Albumin Globulin Albumin/Globulin Ratio Lipase Procalcitonin Urine Color Yellow Urine Appearance Cloudy A Urine pH 6.0 Ur Specific [place] 1.008 Urine Protein Trace H Urine Glucose (UA) Negative Urine Ketones Negative Urine Blood 2+ H Urine Nitrite Negative Urine Bilirubin Negative Urine Urobilinogen Negative Ur Leukocyte Esterase 3+ H Urine WBC (Auto) >30 H Urine RBC (Auto) 10-30 H U Hyaline Cast (Auto) 5-10 H U Epithel Cells (Auto) 0-5 Urine Bacteria (Auto) Negative Ur Renal Epithelial Cell Urine Yeast Not Reportable Nasal Screen MRSA (PCR) Negative 10/04/23 08:20 WBC RBC Hgb Hct MCV MCH MCHC RDW Std Deviation RDW Coeff of Vinny Plt Count MPV Immature Gran % (Auto) Neut % (Auto) Lymph % (Auto) Coles % (Auto) Eos % (Auto) Baso % (Auto) Neut # (Auto) Lymph # (Auto) Coles # (Auto) Eos # (Auto) Baso # (Auto) Immature Gran # (Auto) ESR PT INR Sodium Potassium Chloride Carbon Dioxide Anion Gap BUN Creatinine Est Cr Clr Drug Dosing Est GFR ( Amer) Est GFR (Non-Af Amer) BUN/Creatinine Ratio Glucose POC Glucose 146 H Calcium Magnesium Total Bilirubin AST ALT Alkaline Phosphatase Troponin I High Sens C-Reactive Protein Total Protein Albumin Globulin Albumin/Globulin Ratio Lipase Procalcitonin Urine Color Urine Appearance Urine pH Ur Specific [place] Urine Protein Urine Glucose (UA) Urine Ketones Urine Blood Urine Nitrite Urine Bilirubin Urine Urobilinogen Ur Leukocyte Esterase Urine WBC (Auto) Urine RBC (Auto) U Hyaline Cast (Auto) U Epithel Cells (Auto) Urine Bacteria (Auto) Ur Renal Epithelial Cell Urine Yeast Nasal Screen MRSA (PCR) Diagnostic Findings Head CT 10/03/23 09:[address] DOSE: 625.8 mGy.cm HISTORY: fall, on plavix TECHNIQUE: Multiaxial CT images of the head were performed without the use of intravenous contrast. Automated exposure control was utilized for this study. A dose lowering technique was utilized adhering to the principles of ALARA. Comparison: Head CT 06/28/2022. Findings: The paranasal sinuses and mastoid air cells are clear. The calvarium and skull base are intact. There is no mass, hematoma, midline shift, acute infarct. White matter hypodensity is nonspecific but suggestive of microvascular ischemic change. The ventricles and sulci demonstrate mild age-related involutional changes. Impression: No acute intracranial abnormality. Atrophy and microvascular ischemic changes. ACT 112: Negative or not required by law. Electronically signed by: Jared Brock M.D. 10/03/2023 10:40 AM Chest X-Ray 10/03/23 12:34 XR chest 1V portable CLINICAL HISTORY: monitor for resolution of previous pneumonia TECHNIQUE: Single frontal radiograph of the chest was obtained. Comparison: Comparison is made to chest radiograph 08/07/2023 FINDINGS: Median sternotomy wires are unchanged. Calcified aortic knob is seen. Interval resolution of previously noted right upper lobe airspace opacity. No evidence of pleural effusion or pneumothorax. IMPRESSION: Interval resolution of previously noted pneumonia. ACT 112: Negative or not required by law. Electronically signed by: Bryon Wilson M.D. 10/03/2023 1:24 PM Abdomen/Pelvis CT 10/03/23 12:45 CT abd pelvis wo con CLINICAL HISTORY: sacral ulcer and JORGE with obstruction TECHNIQUE: Helical axial images of the abdomen and pelvis were obtained. Automated dose lowering techniques and/or adjustment according to patient size were utilized for this exam. This exam was performed without intravenous contrast. CT DOSE: 827.43 mGy.cm COMPARISON: Comparison is made to CT abdomen pelvis 03/11/2022 FINDINGS: Lower chest: Bibasilar atelectasis versus scarring is seen. Liver: Unremarkable. No focal lesions are seen. Gallbladder and biliary tree: Patient is status post cholecystectomy. No intra- or extrahepatic biliary ductal dilation. Pancreas: Unremarkable, no focal lesions. Spleen: Unremarkable. Adrenals: Unremarkable. Kidneys and ureters: Numerous renal cysts are seen. Bilateral hydroureter is noted. Bladder: Limited evaluation due to underdistention. Reproductive organs: Unremarkable. Bowel: Diverticulosis is seen without evidence of diverticulitis. A hiatal hernia is seen. Lymph nodes Retroperitoneal: Subcentimeter lymph nodes are noted. Pelvic: Unremarkable. Mesenteric: Unremarkable. Peritoneum: Normal. Vessels: Atherosclerotic calcifications are seen. Abdominal wall: Left-sided fat-containing inguinal hernia is seen. The sacral ulcers not well visualized by CT but may be present at the lower sacrum/coccyx. Bones: Mild degenerative changes are seen. No sacral erosions are seen. IMPRESSION: Bilateral hydroureter and hydronephrosis without obstructing stone, possibly due to chronic outlet obstruction. A numbering no evidence of sacral erosion in this patient with history of sacral ulcer. ACT 112: Negative or not required by law. Electronically signed by: Bryon Wilson M.D. 10/03/2023 1:46 PM Medications Administered Home Medications Medication Instructions Recorded Confirmed Last Taken folic acid 400 mcg tablet 0.4 mg PO QAM 02/22/22 10/03/23 10/03/23 08:00 blood sugar diagnostic (FreeStyle #300 ea 07/30/22 10/03/23 Unknown Lite Strips) ferrous sulfate 325 mg (65 mg 325 mg PO Q2D 12/06/22 10/03/23 09/24/23 iron) tablet (iron) pravastatin 10 mg tablet 10 mg PO QAM 12/06/22 10/03/23 09/25/23 finasteride 5 mg tablet (Proscar) 5 mg PO HS #90 tabs 12/17/22 10/03/23 09/25/23 blood-glucose meter (FreeStyle #1 ea 02/08/23 10/03/23 Unknown Lite Meter kit) pantoprazole 20 mg tablet,delayed 20 mg PO DAILY #30 tabs 03/04/23 10/03/23 09/25/23 release clopidogrel 75 mg tablet (Plavix) 75 mg PO PM #90 tabs 03/14/23 10/03/23 10/03/23 08:00 levothyroxine 50 mcg tablet 50 mcg PO QAM #90 tabs 03/19/23 10/03/23 10/03/23 08:00 (Synthroid) acetaminophen 650 mg 650 mg PO Q8H PRN Pain 05/03/23 10/03/23 Unknown tablet,extended release (Arthritis Pain Relief (acetaminophen) ER) clindamycin HCl 300 mg capsule 600 mg (2 x 300 mg) PO DIRECTED 06/17/23 10/03/23 Unknown PRN pretreat dental appt #10 caps dulaglutide 3 mg/0.5 mL 3 mg (0.5 mL) subcut WK #2 mL 06/20/23 10/03/23 09/29/23 [facility] latanoprost 0.005 % eye drops 1 drp ophthalmic (eye) HS 06/21/23 10/03/23 09/25/23 lancets 28 gauge (FreeStyle #300 ea 08/05/23 10/03/23 Unknown Lancets) ondansetron HCl 4 mg tablet 4 mg PO Q8H PRN nausea and 09/09/23 10/03/23 09/25/23 vomiting #30 tabs carvedilol 12.5 mg tablet 12.5 mg PO BID #180 tabs 09/24/23 10/03/23 10/03/23 08:00 fosfomycin tromethamine 3 gram 1 packet PO Q3D #2 ea 09/30/23 10/03/23 10/01/23 oral packet sacubitril 24 mg-valsartan 26 mg 1 tab PO BID 10/03/23 10/03/23 10/03/23 08:00 tablet (Entresto) Active Medications Generic Name Dose Route Start Last Admin Trade Name Freq PRN Reason Stop Dose Admin Clopidogrel Bisulfate 75 mg 10/03/23 21:00 10/03/23 20:49 Clopidogrel Bisulfate 75 Mg Tab PO 11/02/23 20:59 75 mg PM JERMAINE Administration Docusate Sodium 100 mg 10/03/23 21:00 10/04/23 08:53 Docusate Sodium 100 Mg Cap PO 11/02/23 20:59 100 mg BID JERMAINE Administration Ferrous Sulfate 325 mg 10/04/23 09:00 10/04/23 08:53 Ferrous Sulfate 325 Mg Tab PO 11/03/23 08:59 325 mg Q2D@0900 JERMAINE Administration Finasteride 5 mg 10/03/23 21:00 10/03/23 20:50 Finasteride 5 Mg Tab PO 11/02/23 20:59 5 mg HS JERMAINE Administration Heparin Sodium (Porcine) 5,000 units 10/03/23 14:00 10/04/23 06:22 Heparin Sod 5,000 Unit/0.5 Ml Vial SQ 11/02/23 13:59 5,000 units Q8 JERMAINE Administration Cefepime HCl 1,000 mg/ Syringe 10 mls @ 5 mls/min 10/04/23 03:00 10/04/23 03:53 IV 10/11/23 02:59 5 mls/min Q12H JERMAINE Administration Protocol Daptomycin 300 mg/ Syringe 6 mls @ 3 mls/min 10/03/23 15:00 10/03/23 14:51 IV 10/13/23 14:59 3 mls/min Q48H JERMAINE Administration Protocol Insulin Aspart 0 units 10/03/23 16:30 10/04/23 09:00 Insulin Aspart Per Unit Charge SC 11/02/23 12:59 3 units ACHS JERMAINE Administration Latanoprost 1 drops 10/03/23 21:00 10/03/23 21:54 Latanoprost 0.005% Op Soln 2.5 Ml Btl OP 11/02/23 20:59 1 drops HS JERMAINE Administration Levothyroxine Sodium 50 mcg 10/04/23 06:30 10/04/23 06:23 Levothyroxine Sodium 50 Mcg Tablet PO 11/03/23 06:29 50 mcg DAILYBB JERMAINE Administration Pantoprazole Sodium 40 mg 10/04/23 09:00 10/04/23 08:53 Pantoprazole 40 Mg Tab PO 11/03/23 08:59 40 mg DAILY JERMAINE Administration Polyethylene Glycol 17 gm 10/03/23 21:00 10/04/23 08:53 Polyethylene (Miralax) 17 Gm Pack PO 11/02/23 20:59 17 gm BID JERMAINE Administration
[2023-10-04] MEDS ORDERED: PRAVASTATIN SOD 10 MG TAB PO SCH (09:00)
[2023-10-04] MEDS: LANTUS PER UNIT CHARGE SC SCH (12:52)
[2023-10-04] MEDS: FINASTERIDE 5 MG TAB PO SCH (20:07)
[2023-10-04] MEDS: CLOPIDOGREL BISULFATE 75 MG TAB PO SCH (20:07)
[2023-10-04] MEDS: cefTRIAXone SODIUM 1,000 MG in DEXTROSE 5 % MINI-B 50 ML IV SCH (20:08)
[2023-10-04] MEDS: LATANOPROST 0.005% OP SOLN 2.5 ML BTL OP SCH (20:08)
[2023-10-05 05:05] LABS: Basophils # (auto) 0.06 K/uL (0.00-0.20); Eosinophils # (auto) 0.15 K/uL (0.00-0.50); Eosinophils % (auto) 2.5 %; Hematocrit (blood only) 27.2 % (42.0-52.0); Hemoglobin 9.2 g/dl (14.0-18.0); Immature Granulocytes # (auto) 0.08 K/uL (0.01-0.20); Immature Granulocytes % (auto) 1.3 %; Lymphocytes # (auto) 1.11 K/uL (1.20-3.40); Lymphocytes % (auto) 18.3 %; Mean Corpuscular Hgb Conc 33.8 g/dL (32.0-36.0); Mean Corpuscular Volume 88.6 fL (80.0-100.0); Mean Platelet Volume 10.9 fL (9.4-12.4); Monocytes # (auto) 1.64 K/uL (0.11-0.59); Monocytes % (auto) 27.1 %; Neutrophils # (auto) 3.01 K/uL (1.40-6.50); Neutrophils % (auto) 49.8 %; Platelet Count 175 K/uL (130-400); RDW Coefficient of Variation 15.1 % (11.5-14.5); RDW Standard Deviation 49.4 fL (36.4-46.3); Red Blood Count 3.07 M/uL (4.70-6.10); White Blood Count 6.05 K/ul (4.8-10.8)
[2023-10-05 05:39] LABS: Calcium 8.9 mg/dl (8.6-10.3); Potassium 4.3 mmol/L (3.5-5.1)
[2023-10-05 05:45] LABS: BUN Creatinine Ratio 19.3 (10-20); Creatinine Clr Calc Pharmacy 22.4 ml/min; Est GFR (Non-African American) 20.7 ml/min
[2023-10-05] MEDS: LEVOTHYROXINE SODIUM 50 MCG TABLET PO SCH (06:15)
[2023-10-05] MEDS: HEPARIN SOD 5,000 UNIT/0.5 ML VIAL SQ SCH ×3 (06:15→20:45)
--- NOTE | 2023-10-05 07:22 | Hospitalist Progress Note ---
Date of Service October 05, 2023 Assessment & Plan (1) JORGE (acute kidney injury): Plan: #JORGE #ARF #Urinary Retention JORGE on CKD. Baseline ~ 1.6. 3.51 on admission. Likely post renal as significant urinary retention. Hollins placed. Entresto held. Creatinine improving. Urology consult - rec Hollins for now Strict Is and Os Avoid nephrotoxic agents #Recurrent UTI Patient started on Fosfomycin 10/01 by urology. Admission UA consistent with infectious etiology. Urine culture pending. Previously grew Aerococcus urinae in blood, likely urinary source. On cefepime to cover common urinary sources in addition to sacral wound. Daptomycin for enterococcus and MRSA. ID on board - appreciate recs ID consult - appreciate recs Blood cultures negative to date Wound and urine cultures pending Abx: Cefepime started 10/03 - sacral wound and common urinary bugs Daptomycin started 10/03 - enterococcus and MRSA UCx 08/15 - alpha strep (not enterococcus), coag neg staph [resistant to oxacillin and bactrim] BCx 08/15 - Aerococcus urinae [sensitive to penicillin, CTX, and vanc] #Sacral Ulcer Patient with ongoing sacral ulcer with purulent discharge. CT A&P without good visualization of the sacral ulcers. Wound culture obtained. Wound care on board. Abx as above. Consider surg consult if wound needs debridement. f/u wcx #Diabetic Hold trulicity while inpatient. Monitor BSG ACHS, goal 110-160 for now. Holding CR and basal insulin. CF conservative at 50. Pharmacy glycemic management consult placed. #HFpEF 55-60% #s/p CABG x 3 #HTN Euvolemic on exam. Holding Entresto due to JORGE. Monitor volume status. Continue carvedilol and Plavix Code status: full DVT ppx: heparin SQ, Plavix FENGI: HH, carb consistent, fluid and sodium restriction Dispo: MedSurg w/tele (2) Acute UTI: (3) Incomplete emptying of bladder: (4) Acute renal failure: (5) Urinary tract infection: (6) Sacral ulcer: (7) Diabetes mellitus: (8) Cardiomyopathy: (9) Hypertension: (10) S/P CABG x 3: (11) TIA (transient ischemic attack): Admission and Anticipated Discharge Date Admission Date: October 03, 2023 Supervising Physician Co-Signing Physician Notes Resident Physician Supervision Note: I independently interviewed and examined the patient and verified the giles history and physical, reviewed labs and image studies and agree with resident findings and care plan. Denied any concerns. would like to go home soon. Post obstructive JORGE - creatinine improving slowly. Entresto on hold. Will give 1L fluid Urinary retention - urinary cath in place. urology consulted. to irrigate hollins if blocked. Recurrent UTI in setting of chronic urinary retention - Cx - G+ cocci 10k. IV dapto/ceftriazone. Chronic Sacral ulcer - No concern of infection. wound culture pin-point growth- regrowing. wound care following PT/OT eval/treat Heparin SQ Hollins Subjective Patient seen bedside this morning. He states that he feels okay today. Has some lower back pain. Hollins in place. Alert and oriented x3. No other acute complaints at this time. Review of Systems Review of Systems: All systems reviewed & are unremarkable except as noted in Subjective Physical Exam Physical Exam: Gen: non-toxic appearing male in NAD HEENT: AT NC, no scleral icterus, MMM Resp: CTAN no wheezing no increased work of breathing CV: RRR no m/r/g clinically well perfused Abd: soft, non-ditended MSK: no obvious deformities Neuro: alert and oriented Psych: appropriate mood Results & Data Results & Data Vital Signs (Past 12 Hours) Vital Signs Temp Pulse Pulse Resp BP BP Pulse Ox 10/05/23 03:05 36.6 C 74 16 123/70 97 10/04/23 23:34 36.6 C 73 18 126/58 L 98 10/04/23 22:00 80 10/04/23 19:31 10/04/23 19:28 36.5 C 70 18 151/67 H 99 O2 Del Method 10/05/23 03:05 Room Air 10/04/23 23:34 Room Air 10/04/23 22:00 10/04/23 19:31 Room Air 10/04/23 19:28 Room Air Resident Activity Tracking Resident Involvement: Resident Care Provided Care Provided: Adult Hospital Medicine (9) Hypertension Hypertension type: primary hypertension Qualified Code(s): I10 - Essential (primary) hypertension
[2023-10-05] MEDS: INSULIN ASPART PER UNIT CHARGE SC SCH ×4 (08:58→20:45)
[2023-10-05] MEDS: ACETAMINOPHEN 325 MG TAB PO PRN (08:59)
[2023-10-05] MEDS: PANTOprazole 40 MG TAB PO SCH (08:59)
[2023-10-05] MEDS: LANTUS PER UNIT CHARGE SC SCH (09:02)
[2023-10-05] MEDS: POLYETHYLENE (MIRALAX) 17 GM PACK PO SCH ×2 (09:02→20:46)
[2023-10-05] MEDS: DOCUSATE SODIUM 100 MG CAP PO SCH ×2 (09:02→20:46)
[2023-10-05] MEDS: DAPTOmycin 300 MG in SYRINGE 0 ML IV SCH (17:07)
[2023-10-05] MEDS ORDERED: PLASMA-LYTE A 1,000 ML IV ONE (17:24)
[2023-10-05] MEDS: cefTRIAXone SODIUM 1,000 MG in DEXTROSE 5 % MINI-B 50 ML IV SCH (20:42)
[2023-10-05] MEDS: FINASTERIDE 5 MG TAB PO SCH (20:43)
[2023-10-05] MEDS: CLOPIDOGREL BISULFATE 75 MG TAB PO SCH (20:44)
[2023-10-05] MEDS: LATANOPROST 0.005% OP SOLN 2.5 ML BTL OP SCH (20:46)
[2023-10-06] MEDS: LEVOTHYROXINE SODIUM 50 MCG TABLET PO SCH (05:16)
[2023-10-06] MEDS: HEPARIN SOD 5,000 UNIT/0.5 ML VIAL SQ SCH ×3 (05:16→21:00)
[2023-10-06 05:38] LABS: Basophils # (auto) 0.04 K/uL (0.00-0.20); Basophils % (auto) 0.7 %; Eosinophils # (auto) 0.12 K/uL (0.00-0.50); Eosinophils % (auto) 2.2 %; Hematocrit (blood only) 29.6 % (42.0-52.0); Hemoglobin 9.8 g/dl (14.0-18.0); Immature Granulocytes # (auto) 0.07 K/uL (0.01-0.20); Immature Granulocytes % (auto) 1.3 %; Lymphocytes # (auto) 1.12 K/uL (1.20-3.40); Lymphocytes % (auto) 20.3 %; Mean Corpuscular Hgb Conc 33.1 g/dL (32.0-36.0); Mean Corpuscular Volume 90.5 fL (80.0-100.0); Mean Platelet Volume 10.9 fL (9.4-12.4); Monocytes # (auto) 1.47 K/uL (0.11-0.59); Monocytes % (auto) 26.6 %; Neutrophils % (auto) 48.9 %; Platelet Count 181 K/uL (130-400); RDW Coefficient of Variation 15.5 % (11.5-14.5); RDW Standard Deviation 51.1 fL (36.4-46.3); Red Blood Count 3.27 M/uL (4.70-6.10); White Blood Count 5.52 K/ul (4.8-10.8)
[2023-10-06 05:46] LABS: BUN Creatinine Ratio 20.5 (10-20); Calcium 8.9 mg/dl (8.6-10.3); Creatinine Clr Calc Pharmacy 27.1 ml/min; Est GFR (African American) 32.3 ml/min; Est GFR (Non-African American) 27.9 ml/min; Potassium 4.4 mmol/L (3.5-5.1)
--- NOTE | 2023-10-06 08:15 | Hospitalist Progress Note ---
Date of Service October 06, 2023 Assessment & Plan (1) JORGE (acute kidney injury): Plan: #Fall -Patient admitted due to fall on Plavix. -CT head showed no acute intracranial abnormalities. -PT OT ordered and recommend home health PT. #JOREG #ARF #Urinary Retention -JORGE on CKD. Baseline ~ 1.6. 3.51 on admission. -Likely post renal as significant urinary retention. Interiano placed. Entresto held. Creatinine improving. -Urology consult - rec Interiano for now. Has outpatient appointment on 10/08. -Strict Is and Os -Avoid nephrotoxic agents #Recurrent UTI -Patient started on Fosfomycin 10/01 by urology. -Admission UA consistent with infectious etiology. -ID consult - appreciate recs -Blood cultures negative to date -Wound and urine cultures pending -Antibiotic coverage started on 10/03. On daptomycin 4 mg/kg IV every 48 hours and ceftriaxone 1 g daily. -Consider reaching out to ID in the a.m. for recommendations based on wound culture and urine culture to see if patient needs an extended course of antibiotics. UCx 08/15 - alpha strep (not enterococcus), coag neg staph [resistant to oxacillin and bactrim] BCx 08/15 - Aerococcus urinae [sensitive to penicillin, CTX, and vanc] #Sacral Ulcer -Patient with ongoing sacral ulcer with purulent discharge. -CT A&P without good visualization of the sacral ulcers. Wound culture obtained. -Wound care on board. Abx as above. Consider surg consult if wound needs debridement. -f/u wcx -Patient will need detailed instruction on wound care at time of discharge. #Diabetic -Hold trulicity while inpatient. -Monitor BSG ACHS, goal 110-160 for now. -Holding CR and basal insulin. CF conservative at 50. -Pharmacy glycemic management consult placed. #HFpEF 55-60% #s/p CABG x 3 #HTN -Euvolemic on exam. -Holding Entresto due to JORGE. Monitor volume status. -Continue carvedilol and Plavix Code status: full DVT ppx: heparin SQ, Plavix FENGI: HH, carb consistent, fluid and sodium restriction PT/OT: Recommending home health PT. Dispo: MedSurg w/tele (2) Acute UTI: (3) Incomplete emptying of bladder: (4) Acute renal failure: (5) Urinary tract infection: (6) Sacral ulcer: (7) Diabetes mellitus: (8) Cardiomyopathy: (9) Hypertension: (10) S/P CABG x 3: (11) TIA (transient ischemic attack): Admission and Anticipated Discharge Date Admission Date: October 03, 2023 Supervising Physician Co-Signing Physician Notes Resident Physician Supervision Note: I independently interviewed and examined the patient and verified the giles histor y and physical, reviewed labs and image studies and agree with resident findings and care plan. reporting pain in the sacral wound site. No other concern. Post obstructive JORGE - creatinine improving slowly. Entresto on hold. Will give 24 hour of fluids. Anticipate improvement in creatinine Urinary retention - urinary cath in place - draining. urology consulted. Has outpatient urology appt on saturday. Plans for outpatient cystoscopy. Hx of Recurrent UTI in setting of chronic urinary retention - Cx - G+ cocci 10k. Pending identification. will d/c dapto. continue ceftriaxone. Chronic Sacral ulcer - No concern of infection. wound culture - negative. wound care following. Will need outpatient instruction on wound care - possibly wound clinic referral. Add hydrocodone for pain control. Noted h/o hallucination with oxycodone - to monitor. PT/OT - recommend home with home health. Heparin SQ Interiano Subjective Patient was seen bedside this morning. Patient is feeling okay this morning. Interiano in place with clear urine output. States that he still has his chronic back pain though it is nothing new. No other concerns or issues at this time. Review of Systems Review of Systems: All systems reviewed & are unremarkable except as noted in Subjective Physical Exam Physical Exam: Gen: non-toxic appearing male in NAD HEENT: AT NC, no scleral icterus, MMM Resp: CTAN no wheezing no increased work of breathing CV: RRR no m/r/g clinically well perfused Abd: soft, non-ditended MSK: no obvious deformities Neuro: alert and oriented Psych: appropriate mood Results & Data Results & Data Vital Signs (Past 12 Hours) Vital Signs Temp Pulse Resp BP BP Pulse Ox O2 Del Method 10/06/23 08:07 36.5 C 76 18 153/80 H 97 Room Air 10/06/23 03:49 36.8 C 69 16 133/69 99 Room Air 10/05/23 23:43 36.8 C 73 18 123/60 98 Room Air Resident Activity Tracking Resident Involvement: Resident Care Provided Care Provided: Adult Hospital Medicine (9) Hypertension Hypertension type: primary hypertension Qualified Code(s): I10 - Essential (primary) hypertension
[2023-10-06] MEDS: INSULIN ASPART PER UNIT CHARGE SC SCH ×4 (09:17→20:51)
[2023-10-06] MEDS: LANTUS PER UNIT CHARGE SC SCH (09:18)
[2023-10-06] MEDS: PANTOprazole 40 MG TAB PO SCH (09:18)
[2023-10-06] MEDS: FERROUS SULFATE 325 MG TAB PO SCH (09:18)
[2023-10-06] MEDS: ACETAMINOPHEN 325 MG TAB PO PRN (09:18)
[2023-10-06] MEDS: POLYETHYLENE (MIRALAX) 17 GM PACK PO SCH ×2 (09:18→20:55)
[2023-10-06] MEDS: DOCUSATE SODIUM 100 MG CAP PO SCH ×2 (09:18→20:56)
[2023-10-06] MEDS: LACTATED RINGER'S 1,000 ML IV SCH (09:31)
--- NOTE | 2023-10-06 11:17 | Pharmacy Report ---
Pharmacy Glycemic Short Note 2 - Date of Service October 06, 2023 - Glycemic Short BSG Results (Last 24 hours): 10/05/23 10/05/23 10/05/23 12:15 17:02 20:42 Glucose POC Glucose 151 H 95 94 10/06/23 10/06/23 04:42 08:18 Glucose 104 H POC Glucose 134 H OUTPATIENT ANTIDIABETIC REGIMEN: * Trulicity 3 mg SC weekly (Sundays) * HbA1c: 9.1% (08/16/23) ASSESSMENT: 10/06: * Patient received 15 units of insulin yesterday, 5 units basal + 10 units bolus. BSGs were: 606-154-29-94 mg/dL. * Fasting BSG 134 mg/dL this AM. Will continue with current basal dose. * Given trend down in evening BSGs to below goal range, will loosen bolus parameters this AM. Stressors stable. 10/04: * BSGs improved yesterday w/ only 5 units of bolus insulin * Fasting BSG of 146 mg/dL this morning * Will continue conservative insulin dosing at this time * BSG increased to 192 mg/dL at lunch, will hold off on tightening Novolog for now, but will start low-dose basal insulin 10/03: * CM is an 83 year old male who presented to ED this morning following a fall at home * Subsequently found to have acute kidney injury (SCr: 3.51 mg/dL) and suspected UTI (ordered cefepime and daptomycin) * Pharmacy consulted for glycemic management for BSG of 232 mg/dL on presentation * Will be conservative with initial insulin dosing to limit hypoglycemia in patient at risk for falls PLAN FOR INPATIENT GLYCEMIC CONTROL: * Basal insulin * Lantus 5 units SC daily * Bolus insulin * NovoLog per scale ACHS or Q6hrs while NPO * Goal Range: Low 120 mg/dL - High 150 mg/dL * Correction Factor: 35 mg/dL/unit * Nutritional / Prandial insulin per carb ratio of 1 unit per 12 grams CHO consumed
[2023-10-06] MEDS: HYDROCODONE/ACETAMOPHEN 5/325MG TAB PO PRN (15:47)
[2023-10-06] MEDS: cefTRIAXone SODIUM 1,000 MG in DEXTROSE 5 % MINI-B 50 ML IV SCH (20:47)
[2023-10-06] MEDS: CLOPIDOGREL BISULFATE 75 MG TAB PO SCH (20:51)
[2023-10-06] MEDS: LATANOPROST 0.005% OP SOLN 2.5 ML BTL OP SCH (20:51)
[2023-10-06] MEDS: FINASTERIDE 5 MG TAB PO SCH (20:52)
[2023-10-07 05:13] LABS: Basophils # (auto) 0.06 K/uL (0.00-0.20); Eosinophils # (auto) 0.14 K/uL (0.00-0.50); Eosinophils % (auto) 2.2 %; Hemoglobin 10.1 g/dl (14.0-18.0); Immature Granulocytes # (auto) 0.19 K/uL (0.01-0.20); Lymphocytes # (auto) 1.25 K/uL (1.20-3.40); Lymphocytes % (auto) 19.9 %; Mean Corpuscular Hemoglobin 29.7 pg (25.0-34.0); Mean Corpuscular Hgb Conc 32.6 g/dL (32.0-36.0); Mean Corpuscular Volume 91.2 fL (80.0-100.0); Mean Platelet Volume 10.9 fL (9.4-12.4); Monocytes # (auto) 1.85 K/uL (0.11-0.59); Monocytes % (auto) 29.5 %; Neutrophils # (auto) 2.78 K/uL (1.40-6.50); Neutrophils % (auto) 44.4 %; Platelet Count 197 K/uL (130-400); RDW Coefficient of Variation 15.5 % (11.5-14.5); RDW Standard Deviation 51.4 fL (36.4-46.3); White Blood Count 6.27 K/ul (4.8-10.8)
[2023-10-07 05:25] LABS: BUN Creatinine Ratio 18.9 (10-20); Calcium 8.7 mg/dl (8.6-10.3); Creatinine Clr Calc Pharmacy 26.5 ml/min; Est GFR (African American) 31.9 ml/min; Est GFR (Non-African American) 27.5 ml/min; Potassium 4.3 mmol/L (3.5-5.1)
[2023-10-07] MEDS: LACTATED RINGER'S 1,000 ML IV SCH (05:56)
[2023-10-07] MEDS: HEPARIN SOD 5,000 UNIT/0.5 ML VIAL SQ SCH ×3 (05:58→21:22)
[2023-10-07] MEDS: LEVOTHYROXINE SODIUM 50 MCG TABLET PO SCH (05:59)
--- NOTE | 2023-10-07 07:17 | Hospitalist Progress Note ---
Date of Service October 07, 2023 Assessment & Plan (1) JORGE (acute kidney injury): Plan: #Fall -Patient admitted due to fall on Plavix. -CT head showed no acute intracranial abnormalities. -PT OT ordered and recommend home health PT. - after discussion with , son and pt plan for d/c home tomorrow with home health #JORGE #ARF #Urinary Retention -JORGE on CKD. Baseline ~ 1.6. 3.51 on admission, down to 2.17 10/07 which appears to be close to his baseline -Likely post renal as significant urinary retention. Hollins placed. Entresto held. Creatinine improving. -Urology consult - rec Hollins for now. Has outpatient appointment on 10/08. -Strict Is and Os -Avoid nephrotoxic agents #Recurrent UTI -Patient started on Fosfomycin 10/01 by urology. -Admission UA consistent with infectious etiology. -ID consult - appreciate recs -Blood cultures negative to date -Wound culture with skin nahomi - Urine culture with coag negative staph -Antibiotic coverage started on 10/03. - Daptomycin 4 mg/kg IV 10/03- 10/06, total of 4 days - Cefepime deescalated to Ceftriaxone 10/04- present; day 5. Plan for doxycycline on d/c UCx 08/15 - alpha strep (not enterococcus), coag neg staph [resistant to oxacillin and bactrim] BCx 08/15 - Aerococcus urinae [sensitive to penicillin, CTX, and vanc] #Sacral Ulcer -Patient with ongoing sacral ulcer with purulent discharge. -CT A&P without good visualization of the sacral ulcers. Wound culture growing skin nahomi. -Wound care on board. -Patient will need detailed instruction on wound care at time of discharge. #Diabetic -Hold trulicity while inpatient. -Monitor BSG ACHS, goal 110-160 for now. -Holding CR and basal insulin. CF conservative at 50. -Pharmacy glycemic management consult placed. #HFpEF 55-60% #s/p CABG x 3 #HTN -Euvolemic on exam. -Holding Entresto due to JORGE. Monitor volume status. -Continue carvedilol and Plavix - Some concern for increased dosing of carvedilol and lightheadedness, consider decreasing carvedilol dose for d/c Code status: full DVT ppx: heparin SQ, Plavix FENGI: HH, carb consistent, fluid and sodium restriction PT/OT: Recommending home health PT. Dispo: Home with home health (2) Acute UTI: (3) Incomplete emptying of bladder: (4) Acute renal failure: (5) Urinary tract infection: (6) Sacral ulcer: (7) Diabetes mellitus: (8) Cardiomyopathy: (9) Hypertension: (10) S/P CABG x 3: (11) TIA (transient ischemic attack): Admission and Anticipated Discharge Date Admission Date: October 03, 2023 Supervising Physician Co-Signing Physician Notes I personally examined the patient and verified all giles points of history and exam, discussed case, and agree with decision making with Dr Nir hoffman but feels like he can go home after extensive discussions feels up to going home. vitals noted nad heent nc at mmm breathing unlabored no accessory muscles good effort skin no rashes no pallor or icterus Post obstructive JORGE - creatinine improving slowly. Entresto on hold. - repeated obstruction/retention - home w hollins in and outpt urology follow up Urinary retention - urinary cath in place - draining. urology consulted. Has outpatient urology appt on saturday. Plans for outpatient cystoscopy. Hx of Recurrent UTI in setting of chronic urinary retention - dapto -> doxy Chronic Sacral ulcer - No concern of infection. wound culture - negative. wound care following. Will need outpatient instruction on wound care - wound clinic referral. Add hydrocodone for pain control. Noted h/o hallucination with oxycodone - to monitor. PT/OT - recommend home with home health. Heparin SQ Hollins Subjective Pt seen at bedside this morning. Doing well. Eating breakfast. No complaints. Review of Systems Review of Systems: As per above Physical Exam Physical Exam: Constitutional: well-appearing, no acute distress HEENT: NCAT, no conjunctival injection CV: regular rhythm, no murmur appreciated, extremities well-perfused, no LE edema Resp: CTABL, no wheezes/rales/rhonchi appreciated, no increased work of breathing GI: soft, nondistended, nontender MSK: no gross deformities appreciated Skin: warm, dry, no rash appreciated Neuro: alert, oriented, no focal neurologic deficit appreciated Results & Data Results & Data Vital Signs (Past 12 Hours) Vital Signs Temp Pulse Pulse Resp BP BP Pulse Ox 10/07/23 03:24 36.3 C L 75 18 136/67 99 10/06/23 23:00 36.5 C 69 16 157/73 H 99 10/06/23 22:01 70 10/06/23 21:49 126/65 10/06/23 21:23 36.4 C L 71 191/79 H 98 10/06/23 20:40 69 177/83 H 10/06/23 20:00 179/80 H 98 10/06/23 19:50 36.3 C L 70 18 181/80 H 98 O2 Del Method 10/07/23 03:24 Room Air 10/06/23 23:00 Room Air 10/06/23 22:01 10/06/23 21:49 10/06/23 21:23 Room Air 10/06/23 20:40 10/06/23 20:00 Room Air 10/06/23 19:50 Room Air Resident Activity Tracking Resident Involvement: Resident Care Provided Care Provided: Adult Hospital Medicine (9) Hypertension Hypertension type: primary hypertension Qualified Code(s): I10 - Essential (primary) hypertension
[2023-10-07] MEDS: ACETAMINOPHEN 325 MG TAB PO PRN (07:42)
[2023-10-07] MEDS: PANTOprazole 40 MG TAB PO SCH (07:42)
[2023-10-07] MEDS: DOCUSATE SODIUM 100 MG CAP PO SCH ×2 (07:44→22:31)
[2023-10-07] MEDS: LANTUS PER UNIT CHARGE SC SCH (09:23)
[2023-10-07] MEDS: INSULIN ASPART PER UNIT CHARGE SC SCH ×4 (09:23→21:26)
[2023-10-07] MEDS: POLYETHYLENE (MIRALAX) 17 GM PACK PO SCH ×2 (09:51→22:32)
[2023-10-07] MEDS: HYDROCODONE/ACETAMOPHEN 5/325MG TAB PO PRN ×2 (12:20→20:09)
--- NOTE | 2023-10-07 19:13 | Billing Data ---
Date of Service October 07, 2023 Coding Level of Care Code 48946 SUB INP/OBS CARE MIN
--- NOTE | 2023-10-07 19:13 | Infectious Disease Progress Nt ---
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 ID is consulted for possible UTI. He has a history of incomplete emptying and has had intermittent urinary retention for some time despite abx treatment for UTIs. CT findings of chronic outlet obstruction with bilateral hydroureter and hydronephrosis. Also with numerous renal cysts. Of note, prior renal US 08/16/23 without hydronephrosis. 10/03 UA showing >30 WBCs and 10-30 RBCs, >30 squams; repeat UA with >30 WBCs, 10-30 RBCs, and 0-5 squams. No fevers or leukocytosis. It is possible that his presentation is primarily attributable to obstruction (bilateral hydronephrosis). While inpatient, has been treated empirically with daptomycin and cefepime->ceftriaxone. UCx only with CoNS, which was isolated last admission (along with Aerococcus urinae in both urine and blood). Of note, pt was reportedly started on Fosfomycin on 10/01 by urology thus may have lowered yield of UCx. It is not clear that CoNS is the main driving pathogen in his clinical picture, but nevertheless given the severity of his obstruction would be reasonable to transition to doxycycline to complete a 7-day course. He also remains on Fosfomycin, which would be reasonable to continuebut would continue to consider risks/benefits of long- term suppressive abx therapy. If he has fevers, leukocytosis, or clinical worsening, would repeat UCx and BCx at that time to guide further therapy. Of note, sacral wound without s/sx of superinfection; this wound was cultured and grew only Corynebacterium, which is a likely skin colonizer in this setting. Would continue to monitor. Patient now with Hollins in place. Would follow closely with urology. ID problem list: #Fall #Urinary retention, hollins placed #Recent Aerococcus urinae septicemia # PPM in place #recurrent UTIs # Loop recorder in place # History of R knee replacement # PCN/Sulfa allergy: rash # Fosfomycin S/E dizzy # Chronic sacral ulcer- does not appear infected Recommendations - Reasonable to treat with doxycycline to complete a 7-day course, as you are - Reasonable to continue fosfomycin Q3D for now, would continue to consider risks and benefits of suppressive abx therapy. - Continue to follow with urology - Continue to monitor sacral wound, wound care as appropriate - If he has fevers, leukocytosis, or clinical worsening, would repeat UCx and BCx at that time to guide further therapy Thank you for letting ID participate in the care of this patient. ID will sign off at this time. If questions, please contact the [facility] call center at [phone]. Gilda Romero MD, MHS Infectious Diseases [facility]/ID Connect ID Connect direct line: [phone] Admission and Anticipated Discharge Date Admission Date: October 03, 2023 Subjective This patient recommendation is based on a telemedicine consult request which was completed asynchronously through chart review and information provided by the primary physician. The patient was not seen or examined today. The evaluation is consultative in nature and all patient care and treatment decisions can either be accepted or rejected by the patient's primary hospital-based treating physician using their own independent medical judgment for their patient. Time Spent Reviewing Chart: 31+ minutes - Afebrile, WBC 6 Results & Data Vital Signs (Past 12 Hours) Vital Signs Temp Pulse Pulse Resp BP Pulse Ox O2 Del Method 10/07/23 18:27 36.4 C L 75 16 111/56 L 99 Room Air 10/07/23 15:40 36.7 C 75 16 107/65 99 Room Air 10/07/23 15:00 84 10/07/23 11:30 36.4 C L 72 16 120/69 98 Room Air 10/07/23 08:00 Room Air 10/07/23 08:00 78 10/07/23 07:33 36.9 C 70 16 181/79 H 99 Room Air Diagnostic Findings Micro BC 10/03 NGTD UC # 1 10/03 NG (mixed nahomi) UC # 2 10/03: CoNS (S-dapto, vanco) Wound gram stain 10/03 GPC , GPR, cx Corynebacterium Prior Micro 09/25 Urine pcr ( outpt) CONS >100K, Aerococcus Urinae >100K, Actinotignum schaalli 10-50K, E faecalis 10-50K, Ecoli <10K BC 08/15 02/19 bottles Aerococcus urinea 08/15 . 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
[2023-10-07] MEDS: CLOPIDOGREL BISULFATE 75 MG TAB PO SCH (21:21)
[2023-10-07] MEDS: LATANOPROST 0.005% OP SOLN 2.5 ML BTL OP SCH (21:21)
[2023-10-07] MEDS: cefTRIAXone SODIUM 1,000 MG in DEXTROSE 5 % MINI-B 50 ML IV SCH (21:21)
[2023-10-07] MEDS: FINASTERIDE 5 MG TAB PO SCH (21:22)
[2023-10-08 05:14] LABS: Hemoglobin 9.5 g/dl (14.0-18.0); Mean Corpuscular Hemoglobin 29.8 pg (25.0-34.0); Mean Corpuscular Hgb Conc 32.8 g/dL (32.0-36.0); Mean Corpuscular Volume 90.9 fL (80.0-100.0); Mean Platelet Volume 10.5 fL (9.4-12.4); Platelet Count 189 K/uL (130-400); RDW Coefficient of Variation 15.3 % (11.5-14.5); RDW Standard Deviation 51.2 fL (36.4-46.3); Red Blood Count 3.19 M/uL (4.70-6.10); White Blood Count 6.23 K/ul (4.8-10.8)
[2023-10-08 05:30] LABS: Calcium 8.7 mg/dl (8.6-10.3); Magnesium 1.6 mg/dl (1.7-2.4); Potassium 4.5 mmol/L (3.5-5.1)
[2023-10-08 05:36] LABS: BUN Creatinine Ratio 20.5 (10-20); Creatinine Clr Calc Pharmacy 30.1 ml/min; Est GFR (African American) 35.2 ml/min; Est GFR (Non-African American) 30.4 ml/min
[2023-10-08] MEDS: LEVOTHYROXINE SODIUM 50 MCG TABLET PO SCH (06:19)
[2023-10-08] MEDS: HEPARIN SOD 5,000 UNIT/0.5 ML VIAL SQ SCH (06:20)
--- NOTE | 2023-10-08 07:31 | Hospitalist Progress Note ---
Date of Service October 08, 2023 Assessment & Plan (1) JORGE (acute kidney injury): Plan: #Fall -Patient admitted due to fall on Plavix. -CT head showed no acute intracranial abnormalities. -PT OT ordered and recommend home health PT. - after discussion with , son and pt plan for d/c home tomorrow with home health #JORGE #ARF #Urinary Retention -JORGE on CKD. Baseline ~ 1.6. 3.51 on admission, down to 2.17 10/07 which appears to be close to his baseline -Likely post renal as significant urinary retention. Interiano placed. Entresto held. Creatinine improving. -Urology consult - rec Interiano for now. Has outpatient appointment on 10/08. -Strict Is and Os -Avoid nephrotoxic agents #Recurrent UTI -Patient started on Fosfomycin 10/01 by urology. -Admission UA consistent with infectious etiology. -ID consult - appreciate recs -Blood cultures negative to date -Wound culture with skin nahomi - Urine culture with coag negative staph -Antibiotic coverage started on 10/03. - Daptomycin 4 mg/kg IV 10/03- 10/06, total of 4 days - Cefepime deescalated to Ceftriaxone 10/04- present; day 5. Plan for doxycycline on d/c UCx 08/15 - alpha strep (not enterococcus), coag neg staph [resistant to oxacillin and bactrim] BCx 08/15 - Aerococcus urinae [sensitive to penicillin, CTX, and vanc] #Sacral Ulcer -Patient with ongoing sacral ulcer with purulent discharge. -CT A&P without good visualization of the sacral ulcers. Wound culture growing skin nahomi. -Wound care on board. -Patient will need detailed instruction on wound care at time of discharge. #Diabetic -Hold trulicity while inpatient. -Monitor BSG ACHS, goal 110-160 for now. -Holding CR and basal insulin. CF conservative at 50. -Pharmacy glycemic management consult placed. #HFpEF 55-60% #s/p CABG x 3 #HTN -Euvolemic on exam. -Holding Entresto due to JORGE. Monitor volume status. -Continue carvedilol and Plavix - Some concern for increased dosing of carvedilol and lightheadedness, consider decreasing carvedilol dose for d/c Code status: full DVT ppx: heparin SQ, Plavix FENGI: HH, carb consistent, fluid and sodium restriction PT/OT: Recommending home health PT. Dispo: Home with home health (2) Acute UTI: (3) Incomplete emptying of bladder: (4) Acute renal failure: (5) Urinary tract infection: (6) Sacral ulcer: (7) Diabetes mellitus: (8) Cardiomyopathy: (9) Hypertension: (10) S/P CABG x 3: (11) TIA (transient ischemic attack): Admission and Anticipated Discharge Date Admission Date: October 03, 2023 Review of Systems Review of Systems: As per above Physical Exam Physical Exam: Constitutional: well-appearing, no acute distress HEENT: NCAT, no conjunctival injection CV: regular rhythm, no murmur appreciated, extremities well-perfused, no LE edema Resp: CTABL, no wheezes/rales/rhonchi appreciated, no increased work of breathing GI: soft, nondistended, nontender MSK: no gross deformities appreciated Skin: warm, dry, no rash appreciated Neuro: alert, oriented, no focal neurologic deficit appreciated Results & Data Results & Data Vital Signs (Past 12 Hours) Vital Signs Temp Pulse Pulse Resp BP Pulse Ox O2 Del Method 10/08/23 04:09 36.5 C 70 18 136/79 98 Room Air 10/07/23 23:39 36.8 C 69 18 123/65 100 Room Air 10/07/23 22:00 70 (9) Hypertension Hypertension type: primary hypertension Qualified Code(s): I10 - Essential (primary) hypertension
--- NOTE | 2023-10-08 07:32 | Discharge Summary ---
Date of Service October 08, 2023 Admission HPI Per Admitting Provider Sam is an 83-year-old male with a past medical history including TIA, CAD, cardiomyopathy, COPD, BPH with recurrent retention and UTI's, diabetes mellitus type 2, prostate cancer, hypercholesterolemia, hypertension, hypothyroidism, Mobitz type I second-degree AV block status post pacer, orthostatic hypotension, pancreatic tumor who presented to the [facility] ED on 10/03 after sustaining a fall at home this am. He remained stable while in the ED. Labs were significant for an ESR of 49, Cr of 3.51 (baseline is near 1.6), BUN of 71, and UA in process. CT of the head was read as negative for acute findings. ECG did show new bifascicular block without acute ST segment or T-wave changes. The patient was bladder scanned and found to be retaining greater than 900 cc of urine. Interiano catheter was placed with the patient draining approximately 1L of urine shortly after. Prior to admission the patient was given a 500 mL NSS bolus. At the time of the exam the patient was lying in bed in no acute distress with his sitting bedside. They state that he took a nap earlier this am. After waking he got off the couch and walked to a different chair in their family room. As he was trying to move backwards/sit down on the new chair he had a momentary episode of lightheadedness and lost his balance falling back into the chair. He momentarily sat on the chair but his momentum cause he and the chair to fall backwards, to the ground. He did hit the back of his head on the ground but denies losing consciousness. He currently denies neck pain and has mild posterior scalp pain at the time of the exam. They were surprised by the amount of urine he was retaining recently. However, he has been wearing briefs and has not been monitoring his urine output or stream as he has mainly been incontinent. He denies recent fever, chills, chest pain, heart palpitations, SOB, sough, vomiting, dysuria, diarrhea, melena and LE swelling. His states that she is concerned his known sacral ulcer is now infected as she has been noticing pus when she has been cleaning it. The wound started on his last admission, he has been followed with home health who has been using saline and bandages. His started using Bacitracin as she was concerned it was infected. He was started on Fosfomycin by Urology on 10/01 due to outpatient UA/cultures results (see culture results in my note). The patient has had one dose of Fosfomycin so far this week. He is a full code and wishes for his to make medical decisions for him if he cannot make them himself. Per chart review, the patient was recently admitted to [facility] from 08/15-08/23 due to aspiration pneumonia, gram positive bacteremia, and JORGE on CKD. His blood cultures grew Aerococcus urinae, patient's urine culture grew Alpha strep, not enterococcus, and coag negative staphylococcus, likely making his UTI the source of bacteremia. Infectious disease was consulted and recommended continuing Ceftriaxone on discharge for an additional 2 weeks. ILAN during admission was negative for vegetation. Patient initially presented with acute hypoxic respiratory failure which was thought to be due to aspiration pneumonia/pneumonitis. He was weaned to RA prior to discharge. The patient has been following up [place] [facility] since his last admission. Per the clinic note with Dr. Sandra on 09/25, they plan on doing a repeat cystoscopy and renal US prior to Thanksgiving. Principal Diagnosis UTI Discharge Exam Constitutional: well-appearing, no acute distress HEENT: NCAT, no conjunctival injection CV: regular rhythm, no murmur appreciated, extremities well-perfused, no LE edema Resp: CTABL, no wheezes/rales/rhonchi appreciated, no increased work of breathing GI: soft, nondistended, nontender, BS normoactive MSK: no gross deformities appreciated Skin: warm, dry, no rash appreciated Neuro: alert, oriented, no focal neurologic deficit appreciated Discharge Data Allergies Allergy/AdvReac Type Severity Reaction Status Date / Time cyclobenzaprine Allergy Unknown Unknown Verified 10/03/23 11:41 gluten Allergy Unknown GI SYMPTOMS Verified 10/03/23 11:41 oxycodone Allergy Unknown Hallucinati Verified 10/03/23 11:41 ng Penicillins Allergy Unknown RASH Verified 10/03/23 11:41 Sulfa (Sulfonamide Allergy Unknown RASH Verified 10/03/23 11:41 Antibiotics) tramadol Allergy Unknown HALLUCINATI Verified 10/03/23 11:41 ONS Pycrifa-BIJ-QgP Reductase AdvReac Unknown MUSCLE Verified 10/03/23 11:41 Inhibitor WEAKNESS, [Wnerckw-Vie-Mmz Reductase BRAIN FOG Inhibitor] fosfomycin AdvReac Dizziness Verified 10/03/23 11:42 Consultations 10/03/23 11:20 ED Decision to Admit Stat 10/03/23 12:26 Consult Urology Routine 10/03/23 13:54 Consult Infectious Diseases Routine Ordered Studies 10/03/23 09:39 CT head/brain wo con Stat 10/03/23 12:45 CT abd pelvis wo con Urgent Laboratory Results WBC 6.23 K/ul (4.8-10.8) 10/08/23 04:46 RBC 3.19 M/uL (4.70-6.10) L 10/08/23 04:46 Hgb 9.5 g/dl (14.0-18.0) L 10/08/23 04:46 Hct 29.0 % (42.0-52.0) L 10/08/23 04:46 MCV 90.9 fL (80.0-100.0) 10/08/23 04:46 MCH 29.8 pg (25.0-34.0) 10/08/23 04:46 MCHC 32.8 g/dL (32.0-36.0) 10/08/23 04:46 RDW Std Deviation 51.2 fL (36.4-46.3) H 10/08/23 04:46 RDW Coeff of Vinny 15.3 % (11.5-14.5) H 10/08/23 04:46 Plt Count 189 K/uL (130-400) 10/08/23 04:46 MPV 10.5 fL (9.4-12.4) 10/08/23 04:46 Immature Gran % (Auto) 3.0 % 10/07/23 04:38 Neut % (Auto) 44.4 % 10/07/23 04:38 Lymph % (Auto) 19.9 % 10/07/23 04:38 Geary % (Auto) 29.5 % 10/07/23 04:38 Eos % (Auto) 2.2 % 10/07/23 04:38 Baso % (Auto) 1.0 % 10/07/23 04:38 Neut # (Auto) 2.78 K/uL (1.40-6.50) 10/07/23 04:38 Lymph # (Auto) 1.25 K/uL (1.20-3.40) 10/07/23 04:38 Geary # (Auto) 1.85 K/uL (0.11-0.59) H 10/07/23 04:38 Eos # (Auto) 0.14 K/uL (0.00-0.50) 10/07/23 04:38 Baso # (Auto) 0.06 K/uL (0.00-0.20) 10/07/23 04:38 Immature Gran # (Auto) 0.19 K/uL (0.01-0.20) 10/07/23 04:38 ESR 49 mm/hr (0-20) H 10/03/23 09:49 PT 11.4 Seconds (9.0-12.0) 10/03/23 09:49 INR 1.0 (0.9-1.1) 10/03/23 09:49 Sodium 135 mmol/L (136-145) L 10/08/23 04:46 Potassium 4.5 mmol/L (3.5-5.1) 10/08/23 04:46 Chloride 103 mmol/L (98-107) 10/08/23 04:46 Carbon Dioxide 26 mmol/L (21-32) 10/08/23 04:46 Anion Gap 6 (3-11) 10/08/23 04:46 BUN 41 mg/dl (6-23) H 10/08/23 04:46 Creatinine 2.00 mg/dl (0.6-1.4) H 10/08/23 04:46 Est Cr Clr Drug Dosing 30.1 ml/min 10/08/23 04:46 Est GFR ( Amer) 35.2 ml/min 10/08/23 04:46 Est GFR (Non-Af Amer) 30.4 ml/min 10/08/23 04:46 BUN/Creatinine Ratio 20.5 (10-20) H 10/08/23 04:46 Glucose 121 mg/dl (70-99(Fasting)) H 10/08/23 04:46 POC Glucose 115 mg/dl (70-99) H 10/08/23 08:16 Calcium 8.7 mg/dl (8.6-10.3) 10/08/23 04:46 Magnesium 1.6 mg/dl (1.7-2.4) L 10/08/23 04:46 Total Bilirubin 0.5 mg/dl (0.2-1.0) 10/03/23 09:38 AST 11 U/L (13-39) L 10/03/23 09:38 ALT 7 U/L (7-52) 10/03/23 09:38 Alkaline Phosphatase 61 U/L (34-104) 10/03/23 09:38 Troponin I High Sens 12.8 pg/ml (0-20) 10/03/23 09:38 C-Reactive Protein 8.34 mg/dl (0-0.5) H 10/03/23 09:38 Total Protein 6.6 gm/dl (6.0-8.3) 10/03/23 09:38 Albumin 3.7 gm/dl (3.4-5.0) 10/03/23 09:38 Globulin 2.9 gm/dl (2.5-4.0) 10/03/23 09:38 Albumin/Globulin Ratio 1.3 (0.9-2) 10/03/23 09:38 Lipase 17 U/L (11-82) 10/03/23 09:38 Procalcitonin < 0.05 ng/ml (0-0.5) 10/03/23 09:50 Urine Color Yellow 10/03/23 Unknown Urine Appearance Cloudy (Clear) A 10/03/23 Unknown Urine pH 6.0 (4.5-7.5) 10/03/23 Unknown Ur Specific [place] 1.008 (1.000-1.030) 10/03/23 Unknown Urine Protein Trace (Negative) H 10/03/23 Unknown Urine Glucose (UA) Negative (Negative) 10/03/23 Unknown Urine Ketones Negative (Negative) 10/03/23 Unknown Urine Blood 2+ (Negative) H 10/03/23 Unknown Urine Nitrite Negative (Negative) 10/03/23 Unknown Urine Bilirubin Negative (Negative) 10/03/23 Unknown Urine Urobilinogen Negative (Negative) 10/03/23 Unknown Ur Leukocyte Esterase 3+ (Negative) H 10/03/23 Unknown Urine WBC (Auto) >30 /hpf (0-5) H 10/03/23 Unknown Urine RBC (Auto) 10-30 /hpf (0-4) H 10/03/23 Unknown U Hyaline Cast (Auto) 5-10 /lpf (0-5) H 10/03/23 Unknown U Epithel Cells (Auto) 0-5 /lpf (0-5) 10/03/23 Unknown Urine Bacteria (Auto) Negative (Negative) 10/03/23 Unknown Ur Renal Epithelial Cell Not Reportable 10/03/23 11:15 Urine Yeast Not Reportable 10/03/23 Unknown Nasal Screen MRSA (PCR) Negative (Negative) 10/03/23 21:[address] 10/03/23 09:[address] DOSE: 625.8 mGy.cm HISTORY: fall, on plavix TECHNIQUE: Multiaxial CT images of the head were performed without the use of intravenous contrast. Automated exposure control was utilized for this study. A dose lowering technique was utilized adhering to the principles of ALARA. Comparison: Head CT 06/28/2022. Findings: The paranasal sinuses and mastoid air cells are clear. The calvarium and skull base are intact. There is no mass, hematoma, midline shift, acute infarct. White matter hypodensity is nonspecific but suggestive of microvascular ischemic change. The ventricles and sulci demonstrate mild age-related involutional changes. Impression: No acute intracranial abnormality. Atrophy and microvascular ischemic changes. ACT 112: Negative or not required by law. Electronically signed by: Jared Brock M.D. 10/03/2023 10:40 AM Chest X-Ray 10/03/23 12:34 XR chest 1V portable CLINICAL HISTORY: monitor for resolution of previous pneumonia TECHNIQUE: Single frontal radiograph of the chest was obtained. Comparison: Comparison is made to chest radiograph 08/07/2023 FINDINGS: Median sternotomy wires are unchanged. Calcified aortic knob is seen. Interval resolution of previously noted right upper lobe airspace opacity. No evidence of pleural effusion or pneumothorax. IMPRESSION: Interval resolution of previously noted pneumonia. ACT 112: Negative or not required by law. Electronically signed by: Bryon Wilson M.D. 10/03/2023 1:24 PM Abdomen/Pelvis CT 10/03/23 12:45 CT abd pelvis wo con CLINICAL HISTORY: sacral ulcer and JORGE with obstruction TECHNIQUE: Helical axial images of the abdomen and pelvis were obtained. Automated dose lowering techniques and/or adjustment according to patient size were utilized for this exam. This exam was performed without intravenous contrast. CT DOSE: 827.43 mGy.cm COMPARISON: Comparison is made to CT abdomen pelvis 03/11/2022 FINDINGS: Lower chest: Bibasilar atelectasis versus scarring is seen. Liver: Unremarkable. No focal lesions are seen. Gallbladder and biliary tree: Patient is status post cholecystectomy. No intra- or extrahepatic biliary ductal dilation. Pancreas: Unremarkable, no focal lesions. Spleen: Unremarkable. Adrenals: Unremarkable. Kidneys and ureters: Numerous renal cysts are seen. Bilateral hydroureter is noted. Bladder: Limited evaluation due to underdistention. Reproductive organs: Unremarkable. Bowel: Diverticulosis is seen without evidence of diverticulitis. A hiatal hernia is seen. Lymph nodes Retroperitoneal: Subcentimeter lymph nodes are noted. Pelvic: Unremarkable. Mesenteric: Unremarkable. Peritoneum: Normal. Vessels: Atherosclerotic calcifications are seen. Abdominal wall: Left-sided fat-containing inguinal hernia is seen. The sacral ulcers not well visualized by CT but may be present at the lower sacrum/coccyx. Bones: Mild degenerative changes are seen. No sacral erosions are seen. IMPRESSION: Bilateral hydroureter and hydronephrosis without obstructing stone, possibly due to chronic outlet obstruction. A numbering no evidence of sacral erosion in this patient with history of sacral ulcer. ACT 112: Negative or not required by law. Electronically signed by: Bryon Wilson M.D. 10/03/2023 1:46 PM Hospital Course (1) JORGE (acute kidney injury): #Fall -Patient admitted due to fall on Plavix. -CT head showed no acute intracranial abnormalities. -PT OT ordered and recommend home health PT. - some concern increased carvedilol dosing could be contributing to lightheadedness/fall risk. Plan to decrease back to 3.125mg BID upon d/c. - after discussion with , son and pt plan for d/c home with home health/home PT #JORGE #ARF #Urinary Retention -JORGE on CKD. Baseline ~ 1.6. 3.51 on admission, down to 2 prior to d/c -Likely post renal as significant urinary retention. Interiano placed. Entresto held. Creatinine improving. -Urology consult - rec Interiano for now. Has outpatient appointment on 10/08. Will need to discuss plan moving forward for urinary retention that has been leading to recurrent UTIs. #Recurrent UTI -Patient started on Fosfomycin 11/14 by urology. -Admission UA consistent with infectious etiology. -ID consult - appreciate recs -Blood cultures negative to date - Urine culture with coag negative staph -Antibiotic coverage started on 10/03. - Daptomycin 4 mg/kg IV 10/03- 10/06, total of 4 days - Cefepime deescalated to Ceftriaxone 10/04, plan to d/c on doxycycline for a total course of 7 days. #Sacral Ulcer -Patient with ongoing sacral ulcer with purulent discharge. -CT A&P without good visualization of the sacral ulcers. Wound culture growing skin nahomi. Does not appear to be infected at this time. -Wound care on board. -Patient will need to f/u with wound care clinic on d/c. #Diabetic -Plan to resume home diabetic regimen upon d/c. #HFpEF 55-60% #s/p CABG x 3 #HTN -Euvolemic on exam. - Plan to continue Entresto, Plavix on d/c. - Will decrease carvedilol back down to 3.125 BID as he states he has been lightheaded on increased dose, worried this could be contributing to falls. (2) Acute UTI: (3) Incomplete emptying of bladder: (4) Acute renal failure: (5) Urinary tract infection: (6) Sacral ulcer: (7) Diabetes mellitus: (8) Cardiomyopathy: (9) Hypertension: (10) S/P CABG x 3: (11) TIA (transient ischemic attack): Total Time Total Time Spent Total Time Spent (In Minutes): See attending attestation Discharge Plan Discharge Items Patient Disposition: Home - Home Health Services Reason For Visit: FALL, RENAL FAILURE Discharge Diagnosis: UTI Activity: Per Instructions section Non-emergency contact: Primary Care Provider and Urologist Call non-emergency contact if: you have any medication questions and your symptoms worsen Follow-up/Referrals: Dick Adams MD [Primary Care Provider] - 10/17/23 10:15 am Diet: Regular Addtl Attending Provider Instructions: You were admitted for urinary retention and UTI. A Interiano was placed by urology and we have been treating you with IV antibiotics. You have a follow-up appointment with urology today, and should discuss with them the duration the catheter should be left in in addition to a plan moving forward for the urinary retention and recurrent UTIs. We will send a prescription to the pharmacy for doxycycline. This is an antibiotic that we are going to use to complete the treatment of your UTI. Please take it 2x a day for 3 days after discharge. Please start it on the night of 10/08/23. We put in a referral for the wound clinic for your sacral ulcer. They should reach out to you about getting an appointment scheduled. In the meantime, please follow general sacral ulcer care instructions: * Change your position every 2 hours during the day and at least once at night to relieve pressure on the sacral area. * Use a pressure-relieving cushion or mattress to reduce pressure on the ulcer. * Clean the wound daily using a mild, non-irritating soap and warm water. Pat the area dry with a clean, soft towel. * Cover the ulcer with a sterile dressing Restart all home medications with the following changes: -Changing Carvedilol dose from 12.5 mg 2x a day to 3.25 mg 2x per day, new script will be sent to your pharmacy -We are sending a few days of Gates to help with your pain control, please follow instructions on prescription bottle -Doxycycline 100 mg 2x a day for 3 days to complete treatment for your UTI, please start this med on the night of 10/08/23 It has been a pleasure to be a part of your healthcare and we wish you the best in both your health and recovery. Pending Studies at Discharge: No Stand-Alone Forms: My [facility], Smoking Cessation Medications and DC Order Prescriptions: New carvedilol 3.125 mg tablet 3.125 mg PO BID Qty: 30 0RF Rx Instructions: must administer with a meal/food doxycycline hyclate 100 mg tablet,delayed release (DR/EC) 100 mg PO BID 3 Days Qty: 6 0RF hydrocodone-acetaminophen 5-325 mg tablet 1 tab PO BID PRN (Reason: pain) Qty: 10 0RF Rx Instructions: caution drowsiness Continued (DME) FreeStyle Lite Strips Strip See Rx Instructions .Route Qty: 300 3RF Rx Instructions: TEST THREE TIMES DAILY. DX: E11.9 pravastatin 10 mg tablet 10 mg PO QAM ferrous sulfate [iron] 325 mg (65 mg iron) Tablet 325 mg PO Q2D (DME) blood-glucose meter [FreeStyle Lite Meter] Kit See Rx Instructions .Route Qty: 1 0RF Rx Instructions: Test blood sugar three times daily DX:E11.9 clopidogrel [Plavix] 75 mg tablet 75 mg PO PM Qty: 90 3RF levothyroxine [Synthroid] 50 mcg tablet 50 mcg PO QAM Qty: 90 3RF clindamycin HCl 300 mg capsule 600 mg PO DIRECTED PRN (Reason: pretreat dental appt) Qty: 10 0RF Rx Instructions: TAKE 2 CAPSULES 1 HOUR PRIOR TO DENTAL APPOINTMENT Trulicity 3 mg/0.5 mL pen injector 3 mg subcut WK Qty: 2 3RF Rx Instructions: Sun (DME) lancets [FreeStyle Lancets] 28 gauge misc See Rx Instructions .Route Qty: 300 3RF Rx Instructions: TEST THREE TIMES DAILY. DX: E11.9 fosfomycin tromethamine 3 gram packet 1 packet PO Q3D Qty: 2 0RF pantoprazole 20 mg tablet,delayed release (DR/EC) 20 mg PO DAILY Qty: 30 3RF Patient Comments: hs folic acid 400 mcg tablet 0.4 mg PO QAM Patient Comments: NOT IN STOCK AT PHARMACY , CURRENTLY OUT OF finasteride [Proscar] 5 mg tablet 5 mg PO HS Qty: 90 1RF acetaminophen [Arthritis Pain Relief (acetam)] 650 mg tablet extended release 650 mg PO Q8H PRN (Reason: Pain) latanoprost 0.005 % drops 1 drp ophthalmic (eye) HS ondansetron HCl 4 mg tablet 4 mg PO Q8H PRN (Reason: nausea and vomiting) Qty: 30 0RF Entresto 24-26 mg tablet 1 tab PO BID Discontinued carvedilol 12.5 mg tablet 12.5 mg PO BID Qty: 180 3RF Discharge Orders: Discharge Order (Routine); Ordered 10/08/23 Ordered By: Andi Griffith Admission Data Admit Date/Time: 10/03/23 11:27 Attending Provider: Titi Samuel Admit Provider: Jarrett Orta Primary Care Provider: Dick Adams Other Providers: Jarrett Orta; Little Whittaker; Dmitry Campo; Tia Angel; Irma Waters; Kimberly Gomez; Chelsea Patel; Jacqueline Azevedo; Evan Vazquez; Vivian Harper; Gilda Romero; Carlton Fitzpatrick; Evelyn[facility]; Heidy Mckeon Other Interventions: Discharge Summary Assessment (RN) Last Done: 10/08/23 10:01 Supervising Physician Co-Signing Physician Notes I personally examined the patient and verified all giles points of history and exam, discussed case, and agree with decision making with Dr Loyola feels up to discharge. for urology appt later this morning vitals noted nad heent nc at mmm breathing unlabored no accessory muscles good effort skin no rashes no pallor or icterus Post obstructive JORGE - creatinine improving slowly. for cysto later today Urinary retention - urinary cath in place - draining. urology consulted. for cysto as outpt later today. Hx of Recurrent UTI in setting of chronic urinary retention - dapto -> doxy to complete 7 days Chronic Sacral ulcer - No concern of infection. wound culture - negative. wound care following. Will need outpatient instruction on wound care - wound clinic referral. PT/OT - recommend home with home health. after extensive discussions and weighing options he felt safe with plan for home Heparin SQ Interiano Resident Activity Tracking Resident Involvement: Resident Care Provided Care Provided: Adult Hospital Medicine
[2023-10-08 07:59] VITALS: PULSE 75; RESP 16; TEMP 97.5; O2SAT 99
[2023-10-08] MEDS: POLYETHYLENE (MIRALAX) 17 GM PACK PO SCH (08:04)
[2023-10-08] MEDS: HYDROCODONE/ACETAMOPHEN 5/325MG TAB PO PRN (08:05)
[2023-10-08] MEDS: DOCUSATE SODIUM 100 MG CAP PO SCH (08:05)
[2023-10-08] MEDS: FERROUS SULFATE 325 MG TAB PO SCH (08:05)
[2023-10-08] MEDS: PANTOprazole 40 MG TAB PO SCH (08:06)
[2023-10-08] MEDS: INSULIN ASPART PER UNIT CHARGE SC SCH (08:53)
[2023-10-08] MEDS: LANTUS PER UNIT CHARGE SC SCH (08:54)
[2023-10-08 10:02] VITALS: BP 136/79
--- NOTE | 2023-10-08 18:41 | Billing Data ---
Date of Service October 08, 2023 Coding Level of Care Code 13237 IN/OBS DISCH 30 MIN/LESS
== END 2023-10-08 11:21 | disposition home health service (06) | DRG 683 ==
LOC: ED 09:06 → SUATTDRO 11:27 → EDINP 11:27 → 2W 12:43
DX: Z79.02 Long term (current) use of antithrombotics/antiplatelets; E03.9 Hypothyroidism, unspecified; L89.150 Pressure ulcer of sacral region, unstageable; E11.22 Type 2 diabetes mellitus with diabetic chronic kidney disease; Z88.2 Allergy status to sulfonamides; I13.0 Hypertensive heart and chronic kidney disease with heart failure and stage 1 through stage 4 chronic kidney disease, or unspecified chronic kidney disease; Z79.890 Hormone replacement therapy; S09.90XA Unspecified injury of head, initial encounter; I50.30 Unspecified diastolic (congestive) heart failure; Z86.73 Personal history of transient ischemic attack (TIA), and cerebral infarction without residual deficits; Z87.440 Personal history of urinary (tract) infections; Z88.0 Allergy status to penicillin; C61 Malignant neoplasm of prostate; Z88.8 Allergy status to other drugs, medicaments and biological substances; Z79.85 Long-term (current) use of injectable non-insulin antidiabetic drugs; I42.9 Cardiomyopathy, unspecified; Z95.1 Presence of aortocoronary bypass graft; E78.5 Hyperlipidemia, unspecified; N18.30 Chronic kidney disease, stage 3 unspecified; R33.9 Retention of urine, unspecified; Z87.891 Personal history of nicotine dependence; Z96.89 Presence of other specified functional implants; I45.2 Bifascicular block; W18.39XA Other fall on same level, initial encounter; N17.9 Acute kidney failure, unspecified; R79.89 Other specified abnormal findings of blood chemistry; N13.6 Pyonephrosis; Y92.003 Bedroom of unspecified non-institutional (private) residence as the place of occurrence of the external cause; Z95.0 Presence of cardiac pacemaker; I44.1 Atrioventricular block, second degree; D64.9 Anemia, unspecified; I25.10 Atherosclerotic heart disease of native coronary artery without angina pectoris

== ENCOUNTER 2023-10-14 07:47 | Observation (INO) ==
--- NOTE | 2023-10-09 10:15 | Anesthesiology Consultation ---
Date of Service October 09, 2023 Assessment & Plan (1) Encounter for pre-operative examination: - Check BSG AM DOS - Infectious disease screening: Per assessment on 10/09/23: No known infectious disease contacts or current infectious disease symptoms. No noted Covid positive test result in past 90 days. - Dulaglitide/Trucility instructions: Patient informed protocol by LIANA SMITH need to stop 7 days prior to surgery. Per LIANA RN phone interview, last Trulicty dose 09/29/23. DOS 10/14/23. - Plavix instructions: per surgeon/prescriber - Cardiology visit (09/24/23): "..presents today for a Hospital Follow-up Visit after being admitted on 08/15/23 through 08/23/23 with an Aspiration Pneumonia and Sepsis with Aerococcus urinae growing out in his blood cultures. Patient was treated with IV Vancomycin and IV Ceftriaxone. Infectious diseases was consulted and they recommended a ILAN. ILAN was carried out by Dr. Batista on 08/20/23 and showed mildly dilated left atrium, aortic valve sclerosis without stenosis, moderate mitral annular calcification and [id number] MR, mild mitral stenosis, no lesions or vegetations were noted on any of his valves. As patient's condition improved, he was placed on IV Ceftriaxone for a total of 2 weeks. Patient was subsequently transferred to [facility] for rehabilitation. He was discharged from [facility] on 09/05/2023 and has been at home ever since. Patient continues to recover from his acute illness, but feels as though he is making progress. He ambulates at least once every hour when he is awake, and he has been using a walker when he has been up moving around. His exertional dyspnea does seem to be a little bit better, but his legs still fatigued with longer walks. We have also been following him for a Cardiomyopathy/Reduced LV Systolic Function. An Echocardiogram done on February 19, 2023 shows moderate left ventricular dysfunction with ejection fraction of 35% and moderate mitral regurgitation. Left ventricular dysfunction was new compared to June 2022 although prior to surgery he had an ejection fraction in this range. With no explanation for his worsening symptoms and these findings Dr. Leung had a Lexiscan Cardiolite study performed on March 22, 2023. Based on this study mild left ventricular dilatation with a mild to moderately reduced ejection fraction was identified (calculated at 47%) with akinesis to dyskinesis of the septum. There appeared to be a small to medium size mild intensity reversible defect in the distal anterior and apical myocardium. This suggested distal LAD ischemia (distal LAD was too small to intervene upon or bypass). Dr. Leung added low-dose beta-blockade to his regimen, hoping to get him on a heart failure regimen for his left ventricular dysfunction. Dr. Leung added Carvedilol 3.125 mg twice a day on March 06, 2023. In addition he reprogrammed his pacemaker to minimize ventricular pacing although his intrinsic complex is not normal, but the pacing may have been detrimental to left ventricular performance and he does have intact AV conduction for the most part. This programming change necessitated turning off left ventricular pacing, however the trade off appeared reasonable. He did not feel much better initially, however after several weeks he began to feel much better.. I saw the patient in follow- up on 08/13/2023 and increased his Coreg to 12.5 mg b.i.d. and advised him to increased his Entresto to 49-51 mg b.i.d. approximately 1 week later. Richardu jacoby during his recent hospitalization his Coreg was reduced to 3.125 mg b.i.d. and this was most likely because of transient hypotension. At this point we have enough blood pressure that this can be increased again. Patient was advised to do the followin. Increase Coreg to 12.5 mg b.i.d.. 2. Continue Entresto 49-51 mg b.i.d.. 3. Continue Plavix 75 mg daily. 4. Continue Pravastatin 10 mg daily. 5. Continue all other medications as listed. 6. Maintain a 2 g low-sodium diet. 7. Monitor daily body weights. - [facility] admission (09/2023): Per discharge summary 10/08/23, JORGE r/t Urinary retention > urology consulted, recommended hollins with outpatient appt 10/08/23 and plan to discuss management of urinary retention leading to recurrent UTIs as outpatient. Sacral ulcer "Does not appear to be infected at this time" and patient referred to wound clinic. Beta kelsey dose decreased d/t lightheadedness recurrence/fall risk. Euvolemic on exam. IV abx transitioned to PO upon discharge. > Will update BMP DOS to trend kidney function. - Urology visit (10/08/23): "Patient here to finalize workup for urologic issues. In past had minor to moderate LUTS with bother and irritation. Rare discomfort. Some urgency and frequency. No new, concerning, or severe episodes. No recent signs of infection, bleeding, or fevers. Here for cystoscopy. Risk and benefits were discussed at length. Patient understands possibility bleeding, infection, or injury. Understands possibility of trouble voiding or increase in lower urinary issues. Patient is agreeable." - Patient acceptable risk for given surgery pending evaluation DOS. Chart Review Chart Review: Patient NOT seen in Pre Admission Testing History Surgery Operation Date: 10/14/23 09:10 Proposed Procedures p Transurethral Resection of the Prostate Tissue - Ibrahima Sandra, DO Height/Weight Height: 5 ft 11 in Weight: 73.028 kg Allergies Allergy/AdvReac Type Severity Reaction Status Date / Time gluten Allergy Mild GI symptoms Verified 10/09/23 09:46 Penicillins Allergy Mild Rash Verified 10/09/23 09:46 Sulfa (Sulfonamide Allergy Mild Rash Verified 10/09/23 09:46 Antibiotics) cyclobenzaprine Allergy Unknown Unknown Verified 10/09/23 09:46 oxycodone AdvReac Intermediate Hallucinati Verified 10/09/23 09:46 ons Bcejfwd-BFD-DhB Reductase AdvReac Intermediate Muscle Verified 10/09/23 09:46 Inhibitor weakness, [Unkkurv-Uil-Icu Reductase brain fog Inhibitor] tramadol AdvReac Intermediate Hallucinati Verified 10/09/23 09:46 ons fosfomycin AdvReac Mild Dizziness Verified 10/09/23 09:46 Medications Home Medications Medication Instructions Recorded Confirmed Last Taken folic acid 400 mcg tablet 0.4 mg PO QAM 02/22/22 10/09/23 10/03/23 08:00 blood sugar diagnostic (FreeStyle #300 ea 07/30/22 10/09/23 Unknown Lite Strips) ferrous sulfate 325 mg (65 mg 325 mg PO Q2D 12/06/22 10/09/23 09/24/23 iron) tablet (iron) pravastatin 10 mg tablet 10 mg PO QAM 12/06/22 10/09/23 09/25/23 finasteride 5 mg tablet (Proscar) 5 mg PO HS #90 tabs 12/17/22 10/09/23 09/25/23 blood-glucose meter (FreeStyle #1 ea 02/08/23 10/09/23 Unknown Lite Meter kit) pantoprazole 20 mg tablet,delayed 20 mg PO DAILY #30 tabs 03/04/23 10/09/23 09/25/23 release clopidogrel 75 mg tablet (Plavix) 75 mg PO PM #90 tabs 03/14/23 10/09/23 10/03/23 08:00 levothyroxine 50 mcg tablet 50 mcg PO QAM #90 tabs 03/19/23 10/09/23 10/03/23 08:00 (Synthroid) acetaminophen 650 mg 650 mg PO Q8H PRN Pain 05/03/23 10/09/23 Unknown tablet,extended release (Arthritis Pain Relief (acetaminophen) ER) clindamycin HCl 300 mg capsule 600 mg (2 x 300 mg) PO DIRECTED 06/17/23 10/09/23 Unknown PRN pretreat dental appt #10 caps dulaglutide 3 mg/0.5 mL 3 mg (0.5 mL) subcut WK #2 mL 06/20/23 10/09/23 09/29/23 subcutaneous [facility] latanoprost 0.005 % eye drops 1 drp ophthalmic (eye) HS 06/21/23 10/09/23 09/25/23 lancets 28 gauge (FreeStyle #300 ea 08/05/23 10/09/23 Unknown Lancets) ondansetron HCl 4 mg tablet 4 mg PO Q8H PRN nausea and 09/09/23 10/09/23 09/25/23 vomiting #30 tabs fosfomycin tromethamine 3 gram 1 packet PO Q3D #2 ea 09/30/23 10/09/23 10/01/23 oral packet sacubitril 24 mg-valsartan 26 mg 1 tab PO BID 10/03/23 10/09/23 10/03/23 08:00 tablet (Entresto) carvedilol 3.125 mg tablet 3.125 mg PO BID #30 tabs 10/08/23 10/09/23 Unknown doxycycline hyclate 100 mg 100 mg PO BID 3 days #6 tabs 10/08/23 10/09/23 Unknown tablet,delayed release hydrocodone 5 mg-acetaminophen 325 1 tab PO BID PRN pain #10 tabs 10/08/23 10/09/23 Unknown mg tablet Past Medical History Medical History (Updated 10/09/23 @ 10:30 by Dee Dee Gordon) Anemia Sacral ulcer Being referred to wound care Hollins catheter in place BPH (benign prostatic hyperplasia) Hx: UTI (urinary tract infection) [facility] admission- sepsis 08/2023 History of recent pneumonia [facility] admission- aspiration pneumonia 08/2023 Pacemaker Medtronic placed 05/2022 Last check 09/2023 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 Hollingsworth Brain TIA 02/2022 ? TIA vs CVA (2001)- patient reports left sided weakness with occasional "toe drop" r/t 2001 event- reason for Plavix CAD (coronary artery disease) CABG x3 (05/2022) Orthostatic hypotension Arthritis Pancreatic tumor ? tumor/cyst- yearly surveillance imaging GERD (gastroesophageal reflux disease) History of asthma Mobitz type 1 second degree AV block History of prostate cancer Treated with radiation, no surgery Hypertension Syncope Remote hx years ago, has a loop recorder in place Chronic obstructive pulmonary disease "Mild" Stage III chronic kidney disease Spinal stenosis of lumbar region Hypothyroidism Carotid artery stenosis Hypercholesteremia Diabetes NIDDM Past Family History Family History Brother Colon cancer Prostate cancer Grandfather Rectal cancer Unknown Heart disease Cancer Hypertension Mother Diabetes Congestive heart failure Stroke Grandmother (Paternal) Stroke Grandfather (Maternal) Myocardial infarction Other No family history of adverse response to anesthesia Denies family history of Ovarian cancer Breast cancer Past Surgical History Surgical History History of urologic surgery Rezum procedure History of anesthesia reaction Trouble coming out of knee replacement + CABG History of cardiac cath 02/2022- no stents > CABG x3 05/2022 at [facility] S/P CABG x 3 05/2022>psu [facility] History of cataract surgery R/L History of esophagogastroduodenoscopy (EGD) H/O colonoscopy with polypectomy [place] teeth removed S/P lumbar laminectomy History of loop recorder Current History of knee replacement Right History of tonsillectomy and adenoidectomy H/O hernia repair As toddler Hx of cholecystectomy Social History Smoking Status: Former smoker tobacco type: pipe Do You Dip or Chew Tobacco: No Hx Alcohol Use: No Alcohol type: hard liquor alcohol intake frequency: holidays/special occasions only Hx Substance Use: No substance use type: does not use Lab Results Anesthesia Preop Results Results Anesthesia Widget: WBC 6.23 K/ul (4.8-10.8) 10/08/23 Hgb 9.5 g/dl (14.0-18.0) L 10/08/23 Hct 29.0 % (42.0-52.0) L 10/08/23 Plt 189 K/uL (130-400) 10/08/23 Na 135 mmol/L (136-145) L 10/08/23 K 4.5 mmol/L (3.5-5.1) 10/08/23 Cl 103 mmol/L (98-107) 10/08/23 CO2 26 mmol/L (21-32) 10/08/23 BUN 41 mg/dl (6-23) H 10/08/23 Creat 2.00 mg/dl (0.6-1.4) H 10/08/23 Glucose Level 121 mg/dl (70-99(Fasting)) H 10/08/23 PT 11.4 Seconds (9.0-12.0) 10/03/23 INR 1.0 (0.9-1.1) 10/03/23 HA1c 9.1 % (4.5-5.6) H 08/16/23 Urine Color Yellow 10/03/23 Urine Appearance Cloudy (Clear) A 10/03/23 Urine pH 6.0 (4.5-7.5) 10/03/23 Urine Specific [place] 1.008 (1.000-1.030) 10/03/23 Urine Protein Trace (Negative) H 10/03/23 Urine Glucose (UA) Negative (Negative) 10/03/23 Urine Ketones Negative (Negative) 10/03/23 Urine Blood 2+ (Negative) H 10/03/23 Urine Nitrite Negative (Negative) 10/03/23 Urine Bilirubin Negative (Negative) 10/03/23 Urine Urobilinogen Negative (Negative) 10/03/23 Urine Leukocyte Esterase 3+ (Negative) H 10/03/23 Urine WBC (Auto) >30 /hpf (0-5) H 10/03/23 Urine RBC (Auto) 10-30 /hpf (0-4) H 10/03/23 Urine Hyaline Casts (Auto) 5-10 /lpf (0-5) H 10/03/23 Urine Epithelial Cells (Auto) 0-5 /lpf (0-5) 10/03/23 Urine Bacteria (Auto) Negative (Negative) 10/03/23 Urine Amorphous Sediment Present (None Prsent) A 08/15/23 Urine Yeast Not Reportable 10/03/23 COVID-19 PCR NEGATIVE (Negative) 08/23/23 Testing Laboratory Results Urine culture (10/03/23): coag negative staphylococcus Electrocardiogram Date: 10/03/23 Sinus rhythm with first-degree AV block at 70 bpm. RBBB. LAFB. Chest X-Ray Date: 10/03/23 FINDINGS: Median sternotomy wires are unchanged. Calcified aortic knob is seen. Interval resolution of previously noted right upper lobe airspace opacity. No evidence of pleural effusion or pneumothorax. IMPRESSION: Interval resolution of previously noted pneumonia. Echocardiogram TTE Date: 08/16/23 EF 55 to 60%. No definite regional wall motion abnormalities. No LVH. Mild RVD. Mild biatrial dilation. Mild aortic stenosis. Severe mitral annular calcification with mild to moderate stenosis. Moderate MR. Moderate to severe TR. Mild pulmonary hypertension. Estimated RVSP 38 mmHg. Compared to prior study 03/12/2023, LV systolic function has improved per report. ILAN Date: 08/20/23 Mild LAD. Mild AV sclerosis, with significant aortic valvular stenosis. Moderate mitral annular calcification. Mild to moderate MR. Mild mitral stenosis. There were no lesions seen on any of the valves or pacemaker leads. LV is grossly normal size. Stress Test Date: 03/22/23 Type: nuclear (Lexiscan) 1. Raw data analysis demonstrated mild increased liver uptake and mild diaphragmatic attenuation. This is a good quality study. 2. Gated myocardial perfusion imaging suggested a mildly dilated left ventricle, mildly to moderately reduced LVEF (calculated 47%), with mild global hypokinesis and akinesis to dyskinesis of the septum. 3. There was a small to medium in size, mild intensity reversible MPI defect of the distal anterior and apical myocardium. These findings suggest mild distal LAD territory ischemia and/or artifact. 4. Study is moderately abnormal with mild risk of ischemia. No prior studies for comparison. Discuss findings with cardiology. Cardiac Catheterization Date: 03/14/22 Summary: Severe multivessel coronary artery disease 60+% distal left main (MLA 3.2 mm by IVUS). Diffuse proximal to mid LAD, 90% mid LAD at bifurcation with diagonal with 70% ostial stenosis. 60% mid circumflex into OM 2 Normal intracardiac filling pressure Recommendations: Evaluation by cardiac surgery for possible CABG (CABG x3 done 05/2022) Other Testing Carotid doppler Date: 07/03/22 There is no sonographic evidence of hemodynamically significant stenosis in the right or left carotid arterial system. Antegrade flow is shown in the vertebral arteries. Pacer check Date: 10/03/23 Medtronic. Mode AAIR <=> DDDR. BP 17.1%. AP 52.2%.
[~2023-10-14 07:47] MED LIST changes: -ACET1TAB84 PO; -ASPI-461 PO; -CHOL2000 PO; -CLIN300C2 PO; -CLOP1TAB5 PO; -CYAN1CAP3 PO; -DOXY-258 PO; -DUTA0.5C PO; -FLUT0.15 NAE; -GLIM4TAB2 PO; -GLUC1500 PO; -LEVO25TA PO; -LIDOCAINE HCL 2% 2 ML VIAL (20MG/ML) ONE; +LR 15ML/HR IV SCH; -MIDAZOLAM HCL 1 MG/ML 2ML VIAL ONE; -NVLGI/PEN SC; -ONDANSETRON INJ 2 MG/ML 2 ML VIAL ONE; -PROPOFOL IV EMULSION 10 MG/ML 20 ML VIAL ONE; -PSYL0.524 PO; -QUIN10TA2 PO; -ROSU5TAB PO; +SODIUM CHLORIDE 0.9% 1000ML IV SCH; -TAMS0.4C38 PO; -UBIQ1CAP8 PO; -VNTHFA/IN INH; +cefTRIAXone SODIUM 1,000 MG in DEXTROSE 5 % MINI-B 50 ML IV SCH
--- NOTE | 2023-10-14 08:11 | History & Physical Bridge Note ---
Date of Service October 14, 2023 History & Physical Bridge Note I have examined the patient, reviewed the History & Physical and in the interval since the performance of the History & Physical I have noted the following changes of clinical significance: no changes noted
[2023-10-14] MEDS ORDERED: LIDOCAINE 2% 2 ML VIAL/AMP(20MG/ML) INFIL ONE (08:34)
[2023-10-14] MEDS ORDERED: fentaNYL citrate PF 100 MCG/2 ML VIAL ONE (08:34)
[2023-10-14] MEDS ORDERED: PROPOFOL IV EMULSION 10 MG/ML 20 ML VIAL IV ONE (08:34)
[2023-10-14 08:42] LABS: Calcium 9.8 mg/dl (8.6-10.3); Creatinine Clr Calc Pharmacy 39.4 ml/min; Est GFR (African American) 49.1 ml/min; Est GFR (Non-African American) 42.4 ml/min; Potassium 4.8 mmol/L (3.5-5.1)
[2023-10-14] MEDS ORDERED: ONDANSETRON INJ 2 MG/ML 2 ML VIAL IV PRN (09:01)
[2023-10-14] MEDS ORDERED: ATROPINE SULFATE 0.1 MG/ML 10ML SYR IV PRN (09:01)
[2023-10-14] MEDS ORDERED: ePHEDrine sulfate 50 MG/ML AMP IV PRN (09:01)
[2023-10-14] MEDS ORDERED: fentaNYL citrate PF 100 MCG/2 ML VIAL IV PRN (09:01)
--- NOTE | 2023-10-14 11:01 | Operative Report ---
PG Post Operative Report Pre & Post Diagnosis Operation Date: 10/14/23 09:10 Pre-Op Diagnosis: Urinary Tract Obstruction Post-Op Diagnosis: Urinary Tract Obstruction I identified the patient and participated in the time-out.: Yes Procedure Operation Date: 10/14/23 09:10 Actual Procedures p Transurethral Resection of the Prostate Tissue. Extraction of bladder stones- Ibrahima Sandra DO Surgeon Ibrahima Sandra, II, DO [employer] Unit Operator None Estimated Blood Loss 1 Findings Consistent with Post-Op Diagnosis Large necrotic mass/tissue in the prostatic urethra with large median lobe projecting into the bladder also necrotic in appearance. Multiple small bladder stones in the base of the bladder extracted and removed. Resected tissue of prostate avascular necrotic and fibrous tissue Specimens Prostate mass/necrotic tissue Drains 22Fr Catheter Anesthesia Type General Complications none Disposition Disposition: Recovery Room Indications Patient with obstruction due to prostate obstruction. Had undergone Rezum procedure in June/July and subsequently developed severe deconditioning and has had catheter for the last 2 months. The necrotic/fibrotic tissue from the Rezum had never passed and has now built up within the prostatic urethra causing considerable obstruction. Risks and benefits discussed at length. Description of Procedure Patient was consented and brought back to the operating room. Patient was placed under anesthesia in the supine position and moved to the dorsal lithotomy position. Patient was prepped and draped in the regular sterile fashion. A time out was completed. A 30degree Cystoscope was placed into the bladder and the entire bladder was examined. The UO's were identified as well as the bladder neck, trigone, dome, and the other important landmarks. The prostatic urethra and large lobes/adenoma was assessed and the veru and bladder neck identified and area/size was assessed. Patient had an extreme large prostate and had undergone Rezum procedure had very large median lobe that still was projecting into the bladder. Appears to be necrotic tissue which is slowly been sloughing off but has been causing considerable obstruction of the bladder neck. Numerous small bladder stones were noted in the base of the bladder. The resection scope was placed and the fine bipolar loop was selected. Starting at the 5 and 7 o'clock positions, a channel was created from bladder neck to the veru. Starting at 1 and 11:00 the lateral lobes were then resected. The tissue was necrotic and fibrotic. There were calcifications with it. There were no considerable areas of bleeding. The tissue was largely avascular. Did not appear to be viable. The tissue was easily resected down to what appeared to be capsule fibers. Resection was taken down without major issue. The channel considerably improved and was now considerably more open. The median lobe had sloughed off partially into the bladder. Care had to be taken at the bladder neck to resect the median lobe tissue away. There was moderate inflammation of the trigone region secondary to the stones as well as the necrotic tissue from the prostate irritating the trigone region. The ureters appeared viable though there was inflammatory changes around them. No signs of injury or other issues. The Specimen was removed and sent for analysis. The resection bed and any bleeding areas were fulgurated/cauterized and the entire area inspected. All bleeding was controlled. The bladder was inspected a final time. The bladder was emptied and irrigated. All specimen and debris was removed. The scope was removed with the bladder partially full. A catheter was placed and balloon elevated. This was easily irrigated. The patient was cleaned, aroused from anesthesia, and transferred to the pacu in stable condition having tolerated the procedure well with no complications. I was present and participated in all aspects of the procedure. The patient will be monitored in the PACU until transferred. Will monitor overnight. Will have patient follow-up in approximately 2 weeks for catheter removal. Will discuss pathology at that time. I attest to the content of the Intraoperative Record and any orders documented therein. Any exceptions are noted below.
--- NOTE | 2023-10-14 12:23 | Anesthesiology Progress Note ---
Date of Service October 14, 2023 Anesthesia Post Procedure Vital Signs Vital Signs: Temp Pulse Resp BP Pulse Ox O2 Del Method O2 Flow Rate 10/14/23 12:15 70 17 152/67 H 96 Room Air 10/14/23 12:00 36.9 C 70 16 145/79 H 97 Room Air 10/14/23 11:45 36.9 C 70 20 146/82 H 99 Room Air 10/14/23 11:40 36.9 C 70 16 154/78 H 100 Oxymask 3 10/14/23 11:30 70 17 162/79 H 100 Oxymask 3 10/14/23 11:20 70 15 157/80 H 100 Oxymask 5 10/14/23 11:10 71 16 153/81 H 100 Oxymask 5 10/14/23 11:04 37.3 C 70 12 168/88 H 100 Oxymask 7 10/14/23 08:41 36.5 C 83 20 137/80 98 Room Air Transfer of Care Handoff Completed per policy Notes Mental Status: alert / awake / arousable Patient Amnestic to Procedure: Yes Nausea / Vomiting: adequately controlled Pain: adequately controlled Airway Patency, RR, SpO2: stable & adequate BP & HR: stable & adequate Hydration State: stable & adequate Anesthetic Complications: no major complications apparent
[2023-10-14] MEDS ORDERED: MoRPHine SULFATE 2 MG/ML CARP IV PRN (13:36)
[2023-10-14] MEDS ORDERED: oxyBUTYnin chloride 5 MG TAB PO PRN (13:36)
[2023-10-14] MEDS ORDERED: MoRPHine SULFATE 4 MG/ML 1 ML CARP\\VIAL IV PRN (13:36)
[2023-10-14] MEDS ORDERED: PHENAZOPYRIDINE HCL 200 MG TAB PO PRN (13:36)
[2023-10-14] MEDS ORDERED: oxyCODONE/ACETAMINOPHEN 5mg/325mg TAB PO PRN (13:36)
[2023-10-14] MEDS ORDERED: GLUCOSE 40% GEL 15 GM TUBE PO PRN (13:56)
[2023-10-14] MEDS ORDERED: GLUCAGON FOR INJ 1 MG VIAL SQ PRN (13:56)
[2023-10-14] MEDS ORDERED: DEXTROSE 50% 50 ML SYRINGE IV PRN (13:56)
[2023-10-14] MEDS ORDERED: CARBOHYDRATES FOR HYPOGLYCEMIA PO PRN (13:56)
[2023-10-14] MEDS ORDERED: GLUCOSE 10 TAB/TUBE PO PRN (13:56)
--- NOTE | 2023-10-14 13:58 | Hospitalist Consultation ---
Date of Consultation October 14, 2023 Assessment & Plan (1) S/P TURP: s/p TURP for BPH - doing well postop -Due to UTI and recurrent obstruction Uncomplicated, no blood loss Interiano in place, urology following P management per primary team Continue perioperative Cipro twice daily. Patient received 1 dose of ceftriaxone preop (2) Diabetes mellitus: Last A1c 9.2% Goal BSG [id number] Patient mildly hyperglycemic morning of admission 192 Switch to basal bolus weight-based while inpatient, SGLT2 temporarily held Glucose checks AC/at bedtime, DM2 diet (3) CAD (coronary artery disease): CAD, hx CABG x3, HFpEF - Carvedilol continued, resume SGLT2 on discharge, continue Entresto 10/15, resume Plavix 10/15, no hx of stents -Statin continued -No chest pain Plan Stable issues: Hypothyroidism: Continue Synthroid CKD: Creatinine baseline around 1.31.9, admitting creatinine 1.55. Have baseline. Really dose medications BMP daily DVT prophylaxis: SCDs, add heparin subcu twice daily 10/15 Diet: DM 1 CODE STATUS: Full code History of Present Illness Attending Physician: Ibrahima Sandra, II, DO History of Present Illness Sam is an 83-year-old male with a past medical history of recurrent UTI, sacral ulcer, DM2, heart failure with preserved ejection fraction of 55 to 60% and history of CABG x 3, hypertension who presented as an outpatient to the OR for scheduled TURP and extraction of bladder stones. Patient was found of a large necrotic mass in the prostatic urethra and multiple bladder stones were extracted and removed. No complications and minimal blood loss. Indwelling catheter was left, medicine was consulted for postoperative management of diabetes, pressure ulcer, and deconditioning. He received preoperative ceftriaxone, and was placed on perioperative ciprofloxacin. Allergies Allergy/AdvReac Type Severity Reaction Status Date / Time gluten Allergy Mild GI symptoms Verified 10/14/23 08:55 Penicillins Allergy Mild Rash Verified 10/14/23 08:55 Sulfa (Sulfonamide Allergy Mild Rash Verified 10/14/23 08:55 Antibiotics) cyclobenzaprine Allergy Unknown Unknown Verified 10/14/23 08:55 oxycodone AdvReac Intermediate Hallucinati Verified 10/14/23 08:55 ons Jbckopf-GNQ-[id number] Reductase AdvReac Intermediate Muscle Verified 10/14/23 08:55 Inhibitor weakness, [Dlfvohl-Pay-Pfg Reductase brain fog Inhibitor] tramadol AdvReac Intermediate Hallucinati Verified 10/14/23 08:55 ons fosfomycin AdvReac Mild Dizziness Verified 10/14/23 08:55 Home Medications Medication Instructions Recorded Confirmed Type folic acid 400 mcg tablet 0.4 mg PO QAM 02/22/22 10/14/23 History blood sugar diagnostic (FreeStyle #300 ea 07/30/22 10/09/23 Rx Lite Strips) ferrous sulfate 325 mg (65 mg 325 mg PO Q2D 12/06/22 10/14/23 History iron) tablet (iron) pravastatin 10 mg tablet 10 mg PO QAM 12/06/22 10/14/23 History finasteride 5 mg tablet (Proscar) 5 mg PO HS #90 tabs 12/17/22 10/14/23 Rx blood-glucose meter (FreeStyle #1 ea 02/08/23 10/09/23 Rx Lite Meter kit) pantoprazole 20 mg tablet,delayed 20 mg PO DAILY #30 tabs 03/04/23 10/14/23 Rx release clopidogrel 75 mg tablet (Plavix) 75 mg PO PM #90 tabs 03/14/23 10/14/23 Rx levothyroxine 50 mcg tablet 50 mcg PO QAM #90 tabs 03/19/23 10/14/23 Rx (Synthroid) acetaminophen 650 mg 650 mg PO Q8H PRN Pain 05/03/23 10/14/23 History tablet,extended release (Arthritis Pain Relief (acetaminophen) ER) clindamycin HCl 300 mg capsule 600 mg (2 x 300 mg) PO DIRECTED 06/17/23 10/14/23 Rx PRN pretreat dental appt #10 caps dulaglutide 3 mg/0.5 mL 3 mg (0.5 mL) subcut WK #2 mL 06/20/23 10/14/23 Rx subcutaneous pen injector (Trulicity) latanoprost 0.005 % eye drops 1 drp ophthalmic (eye) HS 06/21/23 10/14/23 History lancets 28 gauge (FreeStyle #300 ea 08/05/23 10/09/23 Rx Lancets) ondansetron HCl 4 mg tablet 4 mg PO Q8H PRN nausea and 09/09/23 10/14/23 Rx vomiting #30 tabs sacubitril 24 mg-valsartan 26 mg 1 tab PO BID 10/03/23 10/14/23 History tablet (Entresto) carvedilol 3.125 mg tablet 3.125 mg PO BID #30 tabs 10/08/23 10/14/23 Rx hydrocodone 5 mg-acetaminophen 325 1 tab PO BID PRN pain #10 tabs 10/08/23 10/14/23 Rx mg tablet Patient History Medical History Anemia JORGE (acute kidney injury) Acute UTI Acute renal failure Urinary tract infection Sacral ulcer Being referred to wound care Interiano catheter in place BPH (benign prostatic hyperplasia) Hx: UTI (urinary tract infection) [facility] admission- sepsis 08/2023 History of recent pneumonia [facility] admission- aspiration pneumonia 08/2023 Pacemaker Medtronic placed 05/2022 Last check 09/2023 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 Hollingsworth Brain TIA 02/2022 ? TIA vs CVA (2001)- patient reports left sided weakness with occasional "toe drop" r/t 2001 event- reason for Plavix CAD (coronary artery disease) CABG x3 (05/2022) Orthostatic hypotension Arthritis Pancreatic tumor ? tumor/cyst- yearly surveillance imaging GERD (gastroesophageal reflux disease) History of asthma Mobitz type 1 second degree AV block History of prostate cancer Treated with radiation, no surgery Hypertension Syncope Remote hx years ago, has a loop recorder in place Chronic obstructive pulmonary disease "Mild" Stage III chronic kidney disease Spinal stenosis of lumbar region Hypothyroidism Carotid artery stenosis Hypercholesteremia Diabetes NIDDM Surgical History (Updated 10/14/23 @ 14:28 by Rolando Hernandes MD) History of urologic surgery Rezum procedure History of anesthesia reaction Trouble coming out of knee replacement + CABG History of cardiac cath 02/2022- no stents > CABG x3 05/2022 at [facility] S/P CABG x 3 05/2022>psu gina History of cataract surgery R/L History of esophagogastroduodenoscopy (EGD) H/O colonoscopy with polypectomy [place] teeth removed S/P lumbar laminectomy History of loop recorder Current History of knee replacement Right History of tonsillectomy and adenoidectomy H/O hernia repair As toddler Hx of cholecystectomy Family History Brother Colon cancer Prostate cancer Grandfather Rectal cancer Unknown Heart disease Cancer Hypertension Mother Diabetes Congestive heart failure Stroke Grandmother (Paternal) Stroke Grandfather (Maternal) Myocardial infarction Other No family history of adverse response to anesthesia Denies family history of Ovarian cancer Breast cancer Social History Smoking Status: Former smoker Tobacco Type: Cigarettes Smoking End Date: 1976; Second Hand Exposure: No; Do You Dip or Chew Tobacco: No; Tobacco Cessation Education Requested by Patient: No Hx Alcohol Use: No Hx Substance Use: No Preferred Language: Danish Communication Ability: Effective Visual Impairment: No Limitations Hearing Ability: Use of Hearing Aid [employer] Required: No Beliefs That Will Affect Care: None marital status: Current Living Situation: Spouse current occupational status: retired current occupation: Retired How many Children do You have: 3 Feels Safe at Home: Yes Safety Concerns: Feels Safe At This Time Childhood Exposure to Second-Hand Smoke: Yes Diet: gluten free and lactose free Dental Care, Regularly: Yes Physical Activity Frequency: Daily Seatbelt Use: always Sunscreen Use: Yes Assistive Devices: Glasses and Walker Physical Exam Physical Exam: General: A&Ox3. NAD. Cooperative. HEENT: Atraumatic, normocephalic. PERLAA. Vision/hearing intact Pulm: CTAB A&P. -wheezes, -rales, -rhonchi. Symmetrical chest rise. No increased work of breathing. No respiratory distress. Cardiac: RRR, -mrg. Radial pulses intact and symmetrical. Abdominal: Nontender, nondistended, soft. BS present. Extremities: Warm, dry. Sensation and strength grossly intact : Interiano in place draining yellow-colored urine, no blood Results & Data Results & Data Vital Signs (Past 12 Hours) Vital Signs Temp Pulse Resp BP Pulse Ox O2 Del Method O2 Flow Rate 10/14/23 13:30 36.9 C 79 18 124/62 97 Room Air 10/14/23 13:00 70 18 146/64 H 97 Room Air 10/14/23 12:45 67 15 148/66 H 97 Room Air 10/14/23 12:30 70 16 149/81 H 96 Room Air 10/14/23 12:15 70 17 152/67 H 96 Room Air 10/14/23 12:00 36.9 C 70 16 145/79 H 97 Room Air 10/14/23 11:45 36.9 C 70 20 146/82 H 99 Room Air 10/14/23 11:40 36.9 C 70 16 154/78 H 100 Oxymask 3 10/14/23 11:30 70 17 162/79 H 100 Oxymask 3 10/14/23 11:20 70 15 157/80 H 100 Oxymask 5 10/14/23 11:10 71 16 153/81 H 100 Oxymask 5 10/14/23 11:04 37.3 C 70 12 168/88 H 100 Oxymask 7 10/14/23 08:41 36.5 C 83 20 137/80 98 Room Air PG Care Time/CCT Total # of Minutes Spent Total Time Spent with Patient: Total time spent is greater than 50% in coordination of care (as documented) at patient's floor/unit and/or counseling patient: Coding Level of Care Code 58992 IN/OBS CONSULT LVL 4,60M Diagnoses S/P TURP Z90.79 Diabetes mellitus E11.9 Coronary artery disease involving [place] coronary artery of [place] heart without angina pectoris I25.10 Associated angina: without angina Coronary Disease-Associated Artery/Lesion type: [place] artery [place] vs. transplanted heart: [place] heart (3) CAD (coronary artery disease) Associated angina: without angina Coronary Disease-Associated Artery/Lesion type: [place] artery [place] vs. transplanted heart: [place] heart Qualified Code(s): I25.10 - Atherosclerotic heart disease of [place] coronary artery without angina pectoris
[2023-10-14] MEDS ORDERED: NovoLIN-R INSULIN PER UNIT CHARGE ONE (15:23)
[2023-10-14] MEDS: SODIUM CHLORIDE 0.9% 1,000 ML IV SCH (16:20)
[2023-10-14] MEDS: CIPROFLOXACIN / D5W 400 MG/200 ML BAG IV SCH (16:21)
[2023-10-14 16:43] LABS: Basophils # (auto) 0.06 K/uL (0.00-0.20); Basophils % (auto) 0.9 %; Eosinophils # (auto) 0.16 K/uL (0.00-0.50); Eosinophils % (auto) 2.5 %; Hematocrit (blood only) 27.3 % (42.0-52.0); Hemoglobin 9.1 g/dl (14.0-18.0); Immature Granulocytes # (auto) 0.17 K/uL (0.01-0.20); Immature Granulocytes % (auto) 2.6 %; Lymphocytes # (auto) 1.06 K/uL (1.20-3.40); Lymphocytes % (auto) 16.5 %; Mean Corpuscular Hemoglobin 29.8 pg (25.0-34.0); Mean Corpuscular Hgb Conc 33.3 g/dL (32.0-36.0); Mean Corpuscular Volume 89.5 fL (80.0-100.0); Mean Platelet Volume 11.1 fL (9.4-12.4); Monocytes # (auto) 1.71 K/uL (0.11-0.59); Monocytes % (auto) 26.6 %; Neutrophils # (auto) 3.26 K/uL (1.40-6.50); Neutrophils % (auto) 50.9 %; Platelet Count 157 K/uL (130-400); RDW Standard Deviation 49.2 fL (36.4-46.3); Red Blood Count 3.05 M/uL (4.70-6.10); White Blood Count 6.42 K/ul (4.8-10.8)
[2023-10-14 17:26] LABS: BUN Creatinine Ratio 23.2 (10-20); Calcium 8.6 mg/dl (8.6-10.3); Creatinine Clr Calc Pharmacy 39.8 ml/min; Est GFR (African American) 47.9 ml/min; Est GFR (Non-African American) 41.4 ml/min; Potassium 4.7 mmol/L (3.5-5.1)
[2023-10-14] MEDS: INSULIN ASPART PER UNIT CHARGE SC SCH ×2 (17:33→20:41)
[2023-10-14] MEDS: carvediloL 3.125 MG TAB PO SCH (17:44)
[2023-10-14] MEDS: LANTUS PER UNIT CHARGE SQ SCH (20:41)
[2023-10-14] MEDS: DOCUSATE SODIUM 100 MG CAP PO SCH (20:42)
[2023-10-15] MEDS: CIPROFLOXACIN / D5W 400 MG/200 ML BAG IV SCH (03:40)
[2023-10-15] MEDS: SODIUM CHLORIDE 0.9% 1,000 ML IV SCH ×2 (03:40→18:26)
[2023-10-15 06:24] LABS: Basophils # (auto) 0.04 K/uL (0.00-0.20); Basophils % (auto) 0.5 %; Eosinophils # (auto) 0.17 K/uL (0.00-0.50); Eosinophils % (auto) 2.2 %; Hematocrit (blood only) 26.6 % (42.0-52.0); Hemoglobin 8.8 g/dl (14.0-18.0); Immature Granulocytes # (auto) 0.13 K/uL (0.01-0.20); Immature Granulocytes % (auto) 1.7 %; Lymphocytes # (auto) 1.17 K/uL (1.20-3.40); Lymphocytes % (auto) 15.5 %; Mean Corpuscular Hemoglobin 29.8 pg (25.0-34.0); Mean Corpuscular Hgb Conc 33.1 g/dL (32.0-36.0); Mean Corpuscular Volume 90.2 fL (80.0-100.0); Mean Platelet Volume 10.7 fL (9.4-12.4); Monocytes % (auto) 29.1 %; Neutrophils # (auto) 3.85 K/uL (1.40-6.50); Platelet Count 154 K/uL (130-400); RDW Standard Deviation 50.1 fL (36.4-46.3); Red Blood Count 2.95 M/uL (4.70-6.10); White Blood Count 7.56 K/ul (4.8-10.8)
[2023-10-15 07:06] LABS: Calcium 8.4 mg/dl (8.6-10.3); Creatinine Clr Calc Pharmacy 38.8 ml/min; Est GFR (African American) 46.5 ml/min; Est GFR (Non-African American) 40.1 ml/min; Potassium 4.6 mmol/L (3.5-5.1)
--- NOTE | 2023-10-15 08:20 | Urology Progress Note ---
Date of Service October 15, 2023 Assessment & Plan (1) Urinary tract obstruction: (2) S/P TURP: Plan POD #1 s/p Transurethral Resection of the Prostate Tissue and Extraction of bladder stones with Dr. Sandra. - Feeling well, progressing as expected. - Afebrile, hemodynamically stable. - Labs reviewed- WBC 7.56, hemoglobin 8.8, creatinine 1.59. - Interiano catheter intact, draining clear yellow urine. - Hospital medicine consulted postoperatively d/t comorbidities, appreciate assistance. - Wound care nurse consulted d/t sacral pressure ulcer, appreciate assistance. - Continue supportive care - Encourage ambulation. - PT/OT eval ordered. - Anticipate discharge possibly tomorrow pending patient progression and discharge planning. Admission and Anticipated Discharge Date Admission Date: October 14, 2023 Subjective Pt examined at bedside this AM. Awake, Sitting in bedside chair on arrival. No acute distress. Denies any significant pain at present. Denies fevers, chills, nausea, vomiting. Interiano catheter intact, draining clear yellow urine. Review of Systems Constitutional: as per Subjective / HPI Gastrointestinal: as per Subjective / HPI Genitourinary: + as per Subjective / HPI Physical Exam Constitutional: no acute distress Respiratory: no respiratory distress and no labored breathing Skin: No visible rashes or lesions to exposed skin areas Neurologic: moves all extremities and awake Psychiatric: A+Ox3, euthymic affect Genitourinary: Interiano intact Results & Data Vital Signs (Past 12 Hours) Vital Signs Temp Pulse Pulse Resp BP Pulse Ox O2 Del Method 10/15/23 08:04 36.8 C 72 18 152/73 H 99 Room Air 10/15/23 03:46 36.5 C 60 16 114/67 94 Room Air 10/15/23 00:00 69 10/14/23 23:19 36.6 C 68 18 116/55 L 96 Room Air PG Care Time/CCT Total # of Minutes Spent Total Time Spent with Patient: Total time spent is greater than 50% in coordination of care (as documented) at patient's floor/unit and/or counseling patient: Coding Level of Care Code None Diagnoses Urinary tract obstruction N13.9 S/P TURP Z90.79
[2023-10-15] MEDS: LANTUS PER UNIT CHARGE SQ SCH ×2 (09:35→20:09)
[2023-10-15] MEDS: INSULIN ASPART PER UNIT CHARGE SC SCH ×4 (09:35→20:09)
[2023-10-15] MEDS: carvediloL 3.125 MG TAB PO SCH ×2 (09:36→18:26)
[2023-10-15] MEDS: DOCUSATE SODIUM 100 MG CAP PO SCH ×2 (09:36→20:11)
[2023-10-15] MEDS: PANTOprazole 40 MG TAB PO SCH (09:36)
--- NOTE | 2023-10-15 15:24 | Hospitalist Progress Note ---
Date of Service October 15, 2023 Assessment & Plan (1) S/P TURP: Plan: Postoperative day #1. Urology entry noted. (2) Diabetes mellitus: Plan: ADA diet. Sliding scale coverage. Currently on basal insulin therapy. Sliding scale coverage as needed. (3) CAD (coronary artery disease): Plan: CAD, hx CABG x3, HFpEF. Stable. Monitor intake and output. Continue current medical management Plan Anticipate eventual discharge to home. Will follow daily until discharge. Admission and Anticipated Discharge Date Admission Date: October 14, 2023 Subjective Alert and oriented. No acute distress. Postoperative day #1 after TURP procedure. Interiano catheter remains in place. Lab studies are stable. Review of Systems 2 Review of Systems: Constitutional-no fever or chills ENT-no blurred vision, no double vision, no epistaxis, no sore throat Respiratory-no cough, no wheezing, no shortness of breath Cardiac-no palpitations, no chest pain, no syncope GI-no nausea, vomiting, diarrhea, melena, hematochezia -Interiano catheter in place. No hematuria Musculoskeletal-no joint pain, no muscle tenderness Skin-no bruising, no rashes, no pruritus Neuro-no isolated weakness, no paresthesia, no weakness Psych-no depression, no anxiety Physical Exam 2 Physical Exam: General-alert and oriented x3, no fevers, no chills HEENT-head atraumatic and normocephalic, pupils equal and reactive to light, extraocular muscles intact Neck-no lymphadenopathy or thyromegaly, trachea midline Chest-clear to auscultation percussion. No rales wheezing or rhonchi Cardiac-regular rate and rhythm, normal S1 and S2 Abdomen-normal bowel sounds, nontender, no hepatosplenomegaly GUFoley catheter in place. No hematuria Extremities-no cyanosis, clubbing, or edema Neuro-cranial nerves II through XII intact, motor and sensory function within normal limits, strength symmetrical, no focal deficits Psych-normal affect, normal mood Results & Data Results & Data Vital Signs (Past 12 Hours) Vital Signs Temp Pulse Pulse Resp BP Pulse Ox O2 Del Method 10/15/23 11:10 36.6 C 61 18 111/67 99 Room Air 10/15/23 08:04 36.8 C 72 18 152/73 H 99 Room Air 10/15/23 08:00 70 10/15/23 03:46 36.5 C 60 16 114/67 94 Room Air Laboratory Results 10/15/23 06:04 10/15/23 06:04 PG Care Time/CCT Total # of Minutes Spent Total Time Spent with Patient: Total time spent is greater than 50% in coordination of care (as documented) at patient's floor/unit and/or counseling patient: Coding Level of Care Code 80195 SUB INP/OBS CARE 3/50MIN Diagnoses S/P TURP Z90.79 Diabetes mellitus E11.9 Coronary artery disease involving [place] coronary artery of [place] heart without angina pectoris I25.10 Coronary Disease-Associated Artery/Lesion type: [place] artery [place] vs. transplanted heart: [place] heart Associated angina: without angina (3) CAD (coronary artery disease) Coronary Disease-Associated Artery/Lesion type: [place] artery [place] vs. transplanted heart: [place] heart Associated angina: without angina Qualified Code(s): I25.10 - Atherosclerotic heart disease of [place] coronary artery without angina pectoris
[2023-10-15] MEDS: COLLAGENASE OINT 30 GM TUBE EXT SCH (18:26)
[2023-10-16 06:30] LABS: Basophils # (auto) 0.06 K/uL (0.00-0.20); Basophils % (auto) 0.8 %; Eosinophils % (auto) 2.8 %; Hematocrit (blood only) 26.1 % (42.0-52.0); Hemoglobin 8.8 g/dl (14.0-18.0); Immature Granulocytes # (auto) 0.18 K/uL (0.01-0.20); Immature Granulocytes % (auto) 2.5 %; Lymphocytes # (auto) 1.21 K/uL (1.20-3.40); Lymphocytes % (auto) 16.8 %; Mean Corpuscular Hemoglobin 30.6 pg (25.0-34.0); Mean Corpuscular Hgb Conc 33.7 g/dL (32.0-36.0); Mean Corpuscular Volume 90.6 fL (80.0-100.0); Monocytes # (auto) 2.23 K/uL (0.11-0.59); Neutrophils # (auto) 3.31 K/uL (1.40-6.50); Neutrophils % (auto) 46.1 %; Platelet Count 155 K/uL (130-400); RDW Coefficient of Variation 14.9 % (11.5-14.5); RDW Standard Deviation 49.5 fL (36.4-46.3); Red Blood Count 2.88 M/uL (4.70-6.10); White Blood Count 7.19 K/ul (4.8-10.8)
[2023-10-16 06:54] LABS: BUN Creatinine Ratio 20.6 (10-20); Calcium 8.3 mg/dl (8.6-10.3); Creatinine Clr Calc Pharmacy 38.6 ml/min; Est GFR (African American) 46.1 ml/min; Est GFR (Non-African American) 39.8 ml/min; Potassium 4.3 mmol/L (3.5-5.1)
[2023-10-16] MEDS: SODIUM CHLORIDE 0.9% 1,000 ML IV SCH (08:22)
[2023-10-16] MEDS: DOCUSATE SODIUM 100 MG CAP PO SCH (08:23)
[2023-10-16] MEDS: carvediloL 3.125 MG TAB PO SCH (08:23)
[2023-10-16] MEDS: PANTOprazole 40 MG TAB PO SCH (08:23)
[2023-10-16] MEDS: COLLAGENASE OINT 30 GM TUBE EXT SCH (08:24)
--- NOTE | 2023-10-16 08:34 | Urology Progress Note ---
Date of Service October 16, 2023 Assessment & Plan (1) Urinary tract obstruction: (2) S/P TURP: Plan POD #2 s/p Transurethral Resection of the Prostate Tissue and Extraction of bladder stones with Dr. Sandra. - Overall feeling well. - Afebrile, hemodynamically stable. - Labs reviewed- WBC 7.19, hemoglobin 8.8, creatinine 1.60. - Interiano catheter intact, draining clear yellow urine. - Hospital medicine consulted postoperatively d/t comorbidities, appreciate assistance. Continue medical management per hospital team. - Wound care nurse consulted d/t sacral pressure ulcer, appreciate assistance. Continue with dressing changes as per [facility] recommendations. - Continue supportive care. - Encourage ambulation. - PT/OT eval - PT recommending rehab. OT eval pending. - Discussed with hospital team - OK for chemical DVT prophylaxis and restarting anticoagulation from standpoint. - Anticipate discharge later today or tomorrow pending patient progression and therapy recommendations. - Pt reassessed this afternoon with case management nurse. - Pt is stable for discharge today from standpoint. - Discussed with hospital team - OK for d/c from their perspective. - PT recommend rehab - Patient/ agreeable to [facility] - Case management will arrange transportation to [facility] today. - Maintain Interiano catheter until outpatient follow-up with urology as scheduled 10/29/23. - Patient/ agreeable to plan, all questions were answered. Plan reviewed with Dr. Sandra. Admission and Anticipated Discharge Date Admission Date: October 14, 2023 Subjective Pt examined at bedside this AM. Awake, resting in bed on arrival. No acute distress. Denies any significant pain at present. Denies fevers, chills, nausea, vomiting. Interiano catheter intact, draining clear yellow urine. Review of Systems Constitutional: as per Subjective / HPI Gastrointestinal: as per Subjective / HPI Genitourinary: + as per Subjective / HPI Physical Exam Constitutional: no acute distress Respiratory: no respiratory distress and no labored breathing Neurologic: moves all extremities and awake Psychiatric: Orientation: alert and cooperative Genitourinary: Interiano intact Results & Data Vital Signs (Past 12 Hours) Vital Signs Temp Pulse Pulse Resp BP Pulse Ox O2 Del Method 10/16/23 07:54 36.6 C 70 20 127/72 100 Room Air 10/16/23 07:53 72 10/16/23 03:23 36.6 C 89 14 122/60 96 Room Air 10/15/23 23:40 36.4 C L 79 14 131/80 100 Room Air 10/15/23 21:54 80 PG Care Time/CCT Total # of Minutes Spent Total Time Spent with Patient: Total time spent is greater than 50% in coordination of care (as documented) at patient's floor/unit and/or counseling patient: Coding Level of Care Code 82399 SUB INP/OBS CARE 2/35MIN Diagnoses Urinary tract obstruction N13.9 S/P TURP Z90.79
[2023-10-16] MEDS: LANTUS PER UNIT CHARGE SQ SCH (09:28)
[2023-10-16] MEDS: INSULIN ASPART PER UNIT CHARGE SC SCH ×2 (09:28→13:09)
--- NOTE | 2023-10-16 13:11 | Hospitalist Progress Note ---
Date of Service October 16, 2023 Assessment & Plan (1) S/P TURP: Plan: Postoperative day #2. Uncomplicated postoperative course thus far (2) Diabetes mellitus: Plan: ADA diet. Sliding scale coverage. Currently on basal insulin therapy. Sliding scale coverage as needed. Resume usual medications at discharge (3) CAD (coronary artery disease): Plan: CAD, hx CABG x3, HFpEF. Stable. Monitor intake and output. Continue current medical management Plan Medically stable for discharge to [facility] today, October 16, per primary service Admission and Anticipated Discharge Date Admission Date: October 14, 2023 Subjective Alert and oriented. Medically stable. He will be discharged today by the primary service to [facility]. Interiano catheter will remain in place. Postoperative day #2 after TURP procedure Review of Systems Review of Systems: Constitutional-no fever or chills ENT-no blurred vision, no double vision, no epistaxis, no sore throat Respiratory-no cough, no wheezing, no shortness of breath Cardiac-no palpitations, no chest pain, no syncope GI-no nausea, vomiting, diarrhea, melena, hematochezia -Interiano catheter in place. No hematuria Musculoskeletal-no joint pain, no muscle tenderness Skin-no bruising, no rashes, no pruritus Neuro-no isolated weakness, no paresthesia, no weakness Psych-no depression, no anxiety Physical Exam Physical Exam: General-alert and oriented x3, no fevers, no chills HEENT-head atraumatic and normocephalic, pupils equal and reactive to light, extraocular muscles intact Neck-no lymphadenopathy or thyromegaly, trachea midline Chest-clear to auscultation percussion. No rales wheezing or rhonchi Cardiac-regular rate and rhythm, normal S1 and S2 Abdomen-normal bowel sounds, nontender, no hepatosplenomegaly GUFoley catheter in place. No hematuria Extremities-no cyanosis, clubbing, or edema Neuro-cranial nerves II through XII intact, motor and sensory function within normal limits, strength symmetrical, no focal deficits Psych-normal affect, normal mood Results & Data Results & Data Vital Signs (Past 12 Hours) Vital Signs Temp Pulse Pulse Resp BP Pulse Ox O2 Del Method 10/16/23 11:43 36.7 C 58 L 20 105/64 98 Room Air 10/16/23 07:54 36.6 C 70 20 127/72 100 Room Air 10/16/23 07:53 72 10/16/23 03:23 36.6 C 89 14 122/60 96 Room Air PG Care Time/CCT Total # of Minutes Spent Total Time Spent with Patient: Total time spent is greater than 50% in coordination of care (as documented) at patient's floor/unit and/or counseling patient: Coding Level of Care Code 79110 SUB INP/OBS CARE 2/35MIN Diagnoses S/P TURP Z90.79 Diabetes mellitus E11.9 Coronary artery disease involving [place] coronary artery of [place] heart without angina pectoris I25.10 Coronary Disease-Associated Artery/Lesion type: [place] artery [place] vs. transplanted heart: [place] heart Associated angina: without angina (3) CAD (coronary artery disease) Coronary Disease-Associated Artery/Lesion type: [place] artery [place] vs. transplanted heart: [place] heart Associated angina: without angina Qualified Code(s): I25.10 - Atherosclerotic heart disease of [place] coronary artery without angina pectoris
--- NOTE | 2023-10-16 17:12 | Discharge Summary ---
Date of Service October 16, 2023 Admission HPI Per Admitting Provider 83-year-old male with a history of severe chronic obstructive issues and retention who presented for TURP with Dr. Sandra. Admission Exam Per Admitting Provider General: Alert in no acute distress. HEENT: Normocephalic Atraumatic. Inspection normal. Psychologic: Normal affect. Respiratory: Nonlabored. Cardiovascular: No tachycardia Skin: Hen[place] and Dry. Principal Diagnosis Urinary tract obstruction Discharge Exam Constitutional no acute distress Respiratory no respiratory distress and no labored breathing Neurologic moves all extremities and awake Psychiatric Orientation: alert and cooperative Genitourinary Interiano intact, urine is clear yellow Discharge Data Allergies Allergy/AdvReac Type Severity Reaction Status Date / Time gluten Allergy Mild GI symptoms Verified 10/14/23 08:55 Penicillins Allergy Mild Rash Verified 10/14/23 08:55 Sulfa (Sulfonamide Allergy Mild Rash Verified 10/14/23 08:55 Antibiotics) cyclobenzaprine Allergy Unknown Unknown Verified 10/14/23 08:55 oxycodone AdvReac Intermediate Hallucinati Verified 10/14/23 08:55 ons Ucgbsaw-FUE-NrL Reductase AdvReac Intermediate Muscle Verified 10/14/23 08:55 Inhibitor weakness, [Wthedvx-Teh-Unr Reductase brain fog Inhibitor] tramadol AdvReac Intermediate Hallucinati Verified 10/14/23 08:55 ons fosfomycin AdvReac Mild Dizziness Verified 10/14/23 08:55 Consultations 10/14/23 13:36 Consult Hospitalist Routine Procedures Performed Operation Date: 10/14/23 09:10 Actual Procedures p Transurethral Resection of the Prostate Tissue(Not Applicable) - Ibrahima Sandra, DO Hospital Course (1) Urinary tract obstruction: (2) S/P TURP: Plan 83-year-old male admitted status post transurethral resection of the prostate tissue and extraction of bladder stones with Dr. Sandra on 10/14/2023 - POD #1 - Feeling well, progressing as expected. - Afebrile, hemodynamically stable. - Labs reviewed- WBC 7.56, hemoglobin 8.8, creatinine 1.59. - Interiano catheter intact, draining clear yellow urine. - Hospital medicine consulted postoperatively d/t comorbidities, appreciate assistance. - Wound care nurse consulted d/t sacral pressure ulcer, appreciate assistance. - Continue supportive care - Encourage ambulation. - PT/OT eval ordered. - Anticipate discharge possibly tomorrow pending patient progression and discharge planning. - POD #2 - Overall feeling well. - Afebrile, hemodynamically stable. - Labs reviewed- WBC 7.19, hemoglobin 8.8, creatinine 1.60. - Interiano catheter intact, draining clear yellow urine. - Hospital medicine consulted postoperatively d/t comorbidities, appreciate assistance. Continue medical management per hospital team. - Wound care nurse consulted d/t sacral pressure ulcer, appreciate assistance. Continue with dressing changes as per [facility] recommendations. - Continue supportive care. - Encourage ambulation. - PT/OT eval - PT recommending rehab. OT eval pending. - Discussed with hospital team - OK for chemical DVT prophylaxis and restarting anticoagulation from standpoint. - Anticipate discharge later today or tomorrow pending patient progression and therapy recommendations. - Pt reassessed this afternoon with case management nurse. - Pt is stable for discharge today from standpoint. - Discussed with hospital team - OK for d/c from their perspective. - PT recommend rehab - Patient/ agreeable to [facility] - Case management will arrange transportation to [facility] today. - Maintain Interiano catheter until outpatient follow-up with urology as scheduled 10/29/23. - Patient/ agreeable to plan, all questions were answered. Plan reviewed with Dr. Sandra. Total Time Total Time Spent Total Time Spent (In Minutes): 15 Discharge Plan Discharge Items Patient Disposition: Transfer Inpatient Rehab Fac Reason For Visit: Urinary Tract Obstruction Discharge Diagnosis: Urinary tract obstruction Activity: Per Instructions section Lifting: No more than 25 pounds Bathing Comment: Ok to shower. No tub baths or soaks. Sexual Activity: Wait until after follow-up appointment Exercise/Sports: Wait until after follow-up appointment Non-emergency contact: Surgeon and Urologist Call non-emergency contact if: you have any medication questions, your symptoms worsen, your pain is not controlled, your pain is worsening, you have a fever and your temperature is above 101 Follow-up/Referrals: Dick Adams MD [Primary Care Provider] - Ibrahima Sandra DO [Physician] - 10/29/23 8:00 am Diet: Regular Addtl Attending Provider Instructions: Please call the urology office at [phone] with any questions, concerns or need to reschedule appointments for any reason. We are happy to assist you. Tips for your recovery at home: Dont be alarmed by brownish or reddish blood or clots in your urine. This is a result of the procedure. This may occur off and on for weeks to months after the procedure but should continue to improve. Drink plenty of fluids during the day (enough to keep your urine very light colored). This will help keep a healthy flow of urine. Do not lift >25 lbs until your followup Avoid constipation. Please use a stool softener (Colace) for the first two weeks after your procedure If you go home with a catheter, please wash tubing where it enters your body twice daily with mild soap (Dove or Dial). Once your catheter is removed, expect some blood in your urine and some burning when you urinate. You should have an appointment to have this removed, if you do not please call our office to arrange. When to call [facility] at [phone]: Your urine contains heavy blood clots or your catheter is not draining You are constantly leaking urine Fever of 101F or higher, chills, nausea, or vomiting Your pain is not relieved with medication Pending Studies at Discharge: Yes Stand-Alone Forms: My [email or web address], Smoking Cessation Skilled Items Patient informed of condition?: Yes DNR: No Discharge Level of Care: Acute rehab Communicable Disease: No Discharge Prognosis: Stable Lines: None Urinary Catheter: Yes Medications and DC Order Prescriptions: Continued (DME) FreeStyle Lite Strips Strip See Rx Instructions .Route Qty: 300 3RF Rx Instructions: TEST THREE TIMES DAILY. DX: E11.9 pravastatin 10 mg tablet 10 mg PO QAM ferrous sulfate [iron] 325 mg (65 mg iron) Tablet 325 mg PO Q2D (DME) blood-glucose meter [FreeStyle Lite Meter] Kit See Rx Instructions .Route Qty: 1 0RF Rx Instructions: Test blood sugar three times daily DX:E11.9 clopidogrel [Plavix] 75 mg tablet 75 mg PO PM Qty: 90 3RF Patient Comments: on hold until after surgery levothyroxine [Synthroid] 50 mcg tablet 50 mcg PO QAM Qty: 90 3RF clindamycin HCl 300 mg capsule 600 mg PO DIRECTED PRN (Reason: pretreat dental appt) Qty: 10 0RF Rx Instructions: TAKE 2 CAPSULES 1 HOUR PRIOR TO DENTAL APPOINTMENT Trulicity 3 mg/0.5 mL pen injector 3 mg subcut WK Qty: 2 3RF Patient Comments: last dose 09/29/23>aware not to take before surgery Rx Instructions: Sun (DME) lancets [FreeStyle Lancets] 28 gauge misc See Rx Instructions .Route Qty: 300 3RF Rx Instructions: TEST THREE TIMES DAILY. DX: E11.9 pantoprazole 20 mg tablet,delayed release (DR/EC) 20 mg PO DAILY Qty: 30 3RF Patient Comments: qam folic acid 400 mcg tablet 0.4 mg PO QAM Patient Comments: NOT IN STOCK AT PHARMACY , CURRENTLY OUT OF finasteride [Proscar] 5 mg tablet 5 mg PO HS Qty: 90 1RF acetaminophen [Arthritis Pain Relief (acetam)] 650 mg tablet extended release 650 mg PO Q8H PRN (Reason: Pain) latanoprost 0.005 % drops 1 drp ophthalmic (eye) HS ondansetron HCl 4 mg tablet 4 mg PO Q8H PRN (Reason: nausea and vomiting) Qty: 30 0RF Entresto 24-26 mg tablet 1 tab PO BID carvedilol 3.125 mg tablet 3.125 mg PO BID Qty: 30 0RF Rx Instructions: must administer with a meal/food hydrocodone-acetaminophen 5-325 mg tablet 1 tab PO BID PRN (Reason: pain) Qty: 10 0RF Rx Instructions: caution drowsiness Discharge Orders: Discharge Order (Routine); Ordered 10/16/23 Ordered By: Yue Frances/Other Patient Handouts: Urinary Catheter Bag Empty Clean, Indwelling Urinary Catheter Dc Admission Data Admit Date/Time: 10/14/23 11:06 Attending Provider: Ibrahima Sandra Admit Provider: Ibrahima Sandra Primary Care Provider: Dick Adams Other Providers: Franklin Kilgore; Yue Gupta; Jarrett Ware; Bar Hamilton; Titi Samuel; Nidhi Anderson; Marivel Moreau; Blair Witt; Misti Parish; Kt Billy; Allyson Agudelo; Sanjeev Levin; Severiano Alcocer; Yue Whalen; Ava Mesa; Bob Hoff; Jarrett Orta; Jared Hinkle; Heidy Mckeon; Vivian Anguiano; Francisco Patel; Fiordaliza Krause; Misha Scott; Rolando Hernandes; Sussy Blue; Rakan Mireles; Naomi Flores; Mary Meneses; Marcella Blum; Elvis Mcdaniels; Bar Murcia; [facility]; [facility]; Elvis Enriquez Coding Diagnoses Urinary tract obstruction N13.9 S/P TURP Z90.79
== END 2023-10-16 17:54 ==
LOC: PACUINP 07:47 → ASU 07:47 → 2N 15:52

== ENCOUNTER 2023-11-29 07:37 | Inpatient (IN) ==
--- NOTE | 2023-11-29 07:51 | Emergency Department Note ---
ED Provider Note History of Present Illness Chief Complaint: Urinary Symptoms Stated Complaint: AMS, FEVER Time Seen by Provider: 11/29/23 07:50 This is an 83-year-old male with a history of CKD stage III, sepsis secondary to UTI, cardiomyopathy, diabetes, BPH, sacral ulcer, who presents to the emergency department via EMS for possible sepsis. Patient states that he does not feel well and there was report that he was short of breath this morning though the patient denies any new dyspnea today compared to his intermittent baseline. His symptoms began today. Patient has been admitted multiple times over the past few months for sepsis related to UTI as well as bacteremia. Had extensive workups. Infectious disease has been consulted. Patient was in [facility] for several weeks and was subsequently discharged home and has been at home for the past several weeks. He currently denies any pain, no chest pain. Feels nauseous but has not had any vomiting. Is incontinent of urine at baseline and wears a depends. Follows with wound care for his sacral ulcer. Home Medications Medication Instructions Recorded Confirmed Type folic acid 400 mcg tablet 0.4 mg PO QAM 02/22/22 11/29/23 History blood sugar diagnostic (FreeStyle #300 ea 07/30/22 11/21/23 Rx Lite Strips) ferrous sulfate 325 mg (65 mg 325 mg PO Q2D 12/06/22 11/29/23 History iron) tablet (iron) pravastatin 10 mg tablet 10 mg PO QAM 12/06/22 11/29/23 History blood-glucose meter (FreeStyle #1 ea 02/08/23 11/21/23 Rx Lite Meter kit) levothyroxine 50 mcg tablet 50 mcg PO QAM #90 tabs 03/19/23 11/29/23 Rx (Synthroid) acetaminophen 650 mg 650 mg PO Q8H PRN Pain 05/03/23 11/29/23 History tablet,extended release (Arthritis Pain Relief (acetaminophen) ER) clindamycin HCl 300 mg capsule 600 mg (2 x 300 mg) PO DIRECTED 06/17/23 11/29/23 Rx PRN pretreat dental appt #10 caps latanoprost 0.005 % eye drops 1 drp OPB HS 06/21/23 11/29/23 History lancets 28 gauge (FreeStyle #300 ea 08/05/23 11/21/23 Rx Lancets) ondansetron HCl 4 mg tablet 4 mg PO Q8H PRN nausea and 09/09/23 11/29/23 Rx vomiting #30 tabs finasteride 5 mg tablet (Proscar) 5 mg PO HS #90 tabs 10/31/23 11/29/23 Rx carvedilol 3.125 mg tablet 3.125 mg PO BID #180 tabs 11/04/23 11/29/23 Rx pantoprazole 20 mg tablet,delayed 20 mg PO QAM 11/27/23 11/29/23 History release sacubitril 24 mg-valsartan 26 mg 1 tab PO BID #180 tabs 11/28/23 11/29/23 Rx tablet (Entresto) ascorbic acid (vitamin C) 500 mg 500 mg PO Q2D 11/29/23 11/29/23 History tablet (Vitamin C) cholecalciferol (vitamin D3) 50 50 mcg PO QAM 11/29/23 11/29/23 History mcg (2,000 unit) tablet (Vitamin D3) clopidogrel 75 mg tablet (Plavix) 0 mg PO PM 11/29/23 11/29/23 History coffee extract 100 mg-phosphatidyl 1 cap PO QAM 11/29/23 11/29/23 History serine 100 mg capsule (Neuriva Original) dulaglutide 3 mg/0.5 mL 3 mg subcut WK 11/29/23 11/29/23 History subcutaneous pen injector (Trulicity) Allergies Allergy/AdvReac Type Severity Reaction Status Date / Time gluten Allergy Mild GI symptoms Verified 11/29/23 10:38 Penicillins Allergy Mild Rash Verified 11/29/23 10:38 Sulfa (Sulfonamide Allergy Mild Rash Verified 11/29/23 10:38 Antibiotics) cyclobenzaprine Allergy Unknown Unknown Verified 11/29/23 10:38 oxycodone AdvReac Intermediate Hallucinati Verified 11/29/23 10:38 ons Itmokfc-IOQ-GlH Reductase AdvReac Intermediate Muscle Verified 11/29/23 10:38 Inhibitor weakness, [Vbcjttg-Wvg-Rgx Reductase brain fog Inhibitor] tramadol AdvReac Intermediate Hallucinati Verified 11/29/23 10:38 ons fosfomycin AdvReac Mild Dizziness Verified 11/29/23 10:38 Past Med/Surg History Medical History Encounter for pre-operative examination Sacral ulcer Being treated by [facility] wound care BPH (benign prostatic hyperplasia) JORGE (acute kidney injury) Hx: UTI (urinary tract infection) [facility] admission- sepsis 08/2023 History of recent pneumonia [facility] admission- aspiration pneumonia 08/2023 Acute UTI Urinary tract infection Pacemaker Medtronic placed 05/2022 Last check 11/25/23 JUMA/Darrick 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 Hollingsworth Brain TIA 02/2022 ? TIA vs CVA (2001)- patient reports left sided weakness with occasional "toe drop" r/t 2001 event- reason for Plavix CAD (coronary artery disease) CABG x3 (05/2022) Orthostatic hypotension Arthritis Pancreatic tumor ? tumor/cyst- yearly surveillance imaging GERD (gastroesophageal reflux disease) History of asthma Mobitz type 1 second degree AV block History of prostate cancer Treated with radiation, no surgery Hypertension Syncope Remote hx years ago, has a loop recorder in place Chronic obstructive pulmonary disease "Mild" Stage III chronic kidney disease Spinal stenosis of lumbar region Hypothyroidism Carotid artery stenosis Hypercholesteremia Diabetes NIDDM Surgical History History of prostate surgery History of urologic surgery Rezum procedure History of anesthesia reaction Trouble coming out of knee replacement + CABG History of cardiac cath 02/2022- no stents > CABG x3 05/2022 at hers S/P CABG x 3 05/2022>psu gina History of cataract surgery R/L History of esophagogastroduodenoscopy (EGD) H/O colonoscopy with polypectomy Cartwright teeth removed S/P lumbar laminectomy History of loop recorder Current History of knee replacement Right History of tonsillectomy and adenoidectomy H/O hernia repair As toddler Hx of cholecystectomy Family History Brother Colon cancer Prostate cancer Grandfather Rectal cancer Unknown Heart disease Cancer Hypertension Mother Diabetes Congestive heart failure Stroke Grandmother (Paternal) Stroke Grandfather (Maternal) Myocardial infarction Other No family history of adverse response to anesthesia Denies family history of Ovarian cancer Breast cancer Social History Smoking Status: Never smoker Tobacco Type: Cigarettes Smoking End Date: 1977; Second Hand Exposure: No; Do You Dip or Chew Tobacco: No; Hx Alcohol Use: No Hx Substance Use: No Preferred Language: Lithuanian Communication Ability: Impaired Visual Impairment: No Limitations Hearing Ability: Normal Customs Manager Required: No Beliefs That Will Affect Care: None marital status: Current Living Situation: Spouse current occupational status: retired current occupation: Retired How many Children do You have: 3 Feels Safe at Home: Yes Safety Concerns: Feels Safe At This Time Childhood Exposure to Second-Hand Smoke: Yes Diet: gluten free and lactose free Dental Care, Regularly: Yes Physical Activity Frequency: Daily Seatbelt Use: always Sunscreen Use: Yes Assistive Devices: Glasses Physical Exam Vital Signs Vital Signs - 24 hr 11/29/23 07:42 11/29/23 08:12 11/29/23 09:33 Temperature 99.7 F H 98.2 F Temperature Source Oral Oral Pulse Rate 103 H 101 H Pulse Rate [Left Finger] 95 H Respiratory Rate 26 H 23 Respiratory Effort / Characteristics Non-Labored Spontaneous Respiratory Depth Normal Respiratory Pattern Regular Blood Pressure 186/91 H Blood Pressure [Left Arm] 119/63 Blood Pressure Mean 122 Blood Pressure Mean [Left Arm] 81 Blood Pressure Position Lying Blood Pressure Position [Left Arm] Sitting Pulse Oximetry 96 96 Oxygen Delivery Method Room Air Room Air Sepsis Recent Fever Within 48 Hours Yes Sepsis New/Unexplained Change in Mental Status No Sepsis Action Taken by Nursing No Action Required CONSTITUTIONAL: Well developed, well nourished, mildly ill-appearing, nontoxic HEAD: Normocephalic, atraumatic. EYES: PERRL, conjunctivae normal, extraocular muscles intact. ENMT: External ears normal. Nose with normal external appearance, no congestion. Oral mucous membranes dry. Oropharynx otherwise normal. NECK: Full active range of motion. No JVD. LYMPHATIC: No cervical adenopathy RESPIRATORY: Slight tachypnea, no labored breathing. Mild cough is present. Lungs largely clear to auscultation. Good air movement CARDIOVASCULAR: Tachycardic rate and regular rhythm. Systolic murmur. ABDOMEN: Normal bowel sounds. Soft, nontender, no peritonitis. GENITOURINARY: Normal external appearance with no rash. No testicular tenderness, no scrotal swelling. MUSCULOSKELETAL: Moves all extremities at all joints without pain or difficulty. There is no edema in bilateral lower extremities. SKIN: [place], warm, dry. There is a pinpoint tunneling ulcer present on the sacrum with minimal surrounding erythema. No active discharge. Dressing in place. NEUROLOGIC: Awake, alert, oriented. Gaze is conjugate. Face symmetric, speech normal. Moves head and all four extremities spontaneously. PSYCHIATRIC: Appropriate. Normal affect Course Administered Medications Ascorbic Acid (Ascorbic Acid 500 Mg Tab) 500 mg PO Q2D JERMAINE Stop: 12/29/23 11:59 Last Admin: 11/29/23 15:24 Dose: Not Given Documented By: LIZBETH Insulin Aspart (Insulin Aspart Per Unit Charge) 0 units SC ACHS JERMAINE Stop: 12/29/23 11:29 Last Admin: 11/29/23 15:24 Dose: Not Given Documented By: LIZBETH Discontinued Medications Sodium Chloride (Nss) 500 mls @ 999 mls/hr IV .Q31M ONE Stop: 11/29/23 08:22 Last Infusion: 11/29/23 09:00 Dose: Infused Documented By: Admin: 11/29/23 08:33 Dose: 999 mls/hr Documented By: GINNY Acetaminophen (Ofirmev) 1,000 mg in 100 mls @ 400 mls/hr IV NOW STA Stop: 11/29/23 08:16 Last Infusion: 11/29/23 09:00 Dose: Infused Documented By: Admin: 11/29/23 08:35 Dose: 400 mls/hr Documented By: GINNY Cefepime HCl (Maxipime) 2,000 mg in 20 mls @ 5 mls/min IV NOW STA; Protocol Stop: 11/29/23 08:40 Last Admin: 11/29/23 10:06 Dose: 5 mls/min Documented By: GINNY Vancomycin HCl 1,500 mg/ (Sodium Chloride) 530 mls @ 200 mls/hr IV NOW ONE Stop: 11/29/23 11:15 Last Infusion: 11/29/23 15:27 Dose: Infused Documented By: Admin: 11/29/23 10:41 Dose: 200 mls/hr Documented By: GINNY Lactated Ringer's (Lr) 500 mls @ 999 mls/hr IV .Q31M ONE Stop: 11/29/23 12:24 Last Infusion: 11/29/23 15:27 Dose: Infused Documented By: Admin: 11/29/23 12:37 Dose: 999 mls/hr Documented By: GINNY Lactated Ringer's (Lr) 1,000 mls @ 125 mls/hr IV .Q8H JERMAINE Stop: 11/29/23 21:29 Last Admin: 11/29/23 15:27 Dose: Not Given Documented By: LIZBETH Ondansetron HCl (Ondansetron Inj 2 Mg/Ml 2 Ml Vial) 4 mg IV NOW STA Stop: 11/29/23 08:03 Last Admin: 11/29/23 08:34 Dose: 4 mg Documented By: GINNY Medical Decision Making Differential Diagnosis Sepsis, UTI, pneumonia, pyelonephritis, viral upper respiratory infection, JORGE, metabolic disturbance, electrolyte imbalance, bacteremia, encephalopathy, meningitis, acute coronary syndrome, pulmonary embolism, effusion, among other pathology Laboratory Data 11/29/23 07:56 11/29/23 07:56 Lab Results 11/29/23 11/29/23 11/29/23 Range/Units 07:56 08:26 10:11 WBC 20.37 H (4.8-10.8) K/ul RBC 3.54 L (4.70-6.10) M/uL Hgb 10.7 L (14.0-18.0) g/dl Hct 31.8 L (42.0-52.0) % MCV 89.8 (80.0-100.0) fL MCH 30.2 (25.0-34.0) pg MCHC 33.6 (32.0-36.0) g/dL RDW Std Deviation 48.3 H (36.4-46.3) fL RDW Coeff of Vinny 14.6 H (11.5-14.5) % Plt Count 94 L (130-400) K/uL MPV 11.3 (9.4-12.4) fL Immature Gran % (Auto) 1.2 % Neut % (Auto) 79.9 % Lymph % (Auto) 2.6 % [place] % (Auto) 16.1 % Eos % (Auto) 0.0 % Baso % (Auto) 0.2 % Neut # (Auto) 16.26 H (1.40-6.50) K/uL Lymph # (Auto) 0.53 L (1.20-3.40) K/uL [place] # (Auto) 3.27 H (0.11-0.59) K/uL Eos # (Auto) 0.01 (0.00-0.50) K/uL Baso # (Auto) 0.05 (0.00-0.20) K/uL Immature Gran # (Auto) 0.25 H (0.01-0.20) K/uL Platelet Estimate Decreased L (Normal) Sodium 135 L (136-145) mmol/L Potassium 4.5 (3.5-5.1) mmol/L Chloride 105 (98-107) mmol/L Carbon Dioxide 22 (21-32) mmol/L Anion Gap 8 (3-11) BUN 39 H (6-23) mg/dl Creatinine 1.69 H (0.6-1.4) mg/dl Est Cr Clr Drug Dosing 34.8 ml/min Est GFR ( Amer) 43.2 ml/min Est GFR (Non-Af Amer) 37.3 ml/min BUN/Creatinine Ratio 23.1 H (10-20) Glucose 199 H (70-99(Fasting)) mg/dl Lactate 1.2 (0.4-2.0) mmol/L Calcium 8.8 (8.6-10.3) mg/dl Total Bilirubin 0.6 (0.2-1.0) mg/dl AST 12 L (13-39) U/L ALT 8 (7-52) U/L Alkaline Phosphatase 52 (34-104) U/L Troponin I High Sens 13.0 (0-20) pg/ml C-Reactive Protein < 0.50 (0-0.5) mg/dl Total Protein 6.4 (6.0-8.3) gm/dl Albumin 3.8 (3.4-5.0) gm/dl Globulin 2.6 (2.5-4.0) gm/dl Albumin/Globulin Ratio 1.5 (0.9-2) Procalcitonin 0.07 (0-0.5) ng/ml Urine Color Yellow Urine Appearance Clear (Clear) Urine pH 6.5 (4.5-7.5) Ur Specific [place] 1.015 (1.000-1.030) Urine Protein 2+ H (Negative) Urine Glucose (UA) Negative (Negative) Urine Ketones Negative (Negative) Urine Blood Trace H (Negative) Urine Nitrite Positive A (Negative) Urine Bilirubin Negative (Negative) Urine Urobilinogen Negative (Negative) Ur Leukocyte Esterase 2+ H (Negative) Urine WBC (Auto) >30 H (0-5) /hpf Urine RBC (Auto) 5-10 H (0-4) /hpf U Hyaline Cast (Auto) 1-5 (0-5) /lpf U Epithel Cells (Auto) >30 H (0-5) /lpf Urine Bacteria (Auto) Negative (Negative) Ur Renal Epithelial Cell Not Reportable Adenovirus (PCR) Not Detected (NotDetected) B. pertussis DNA (PCR) Not Detected (NotDetected) B.parapertussis DNA PCR Not Detected (NotDetected) C. pneumoniae DNA (PCR) Not Detected (NotDetected) Coronavirus OC43 (PCR) Not Detected (NotDetected) Coronavirus HKU1 (PCR) Not Detected (NotDetected) Coronavirus 229E (PCR) Not Detected (NotDetected) SARS-CoV-2 (PCR) Not Detected (NotDetected) Coronavirus NL63 (PCR) Not Detected (NotDetected) Human Metapneumovir PCR Not Detected (NotDetected) Influenza Type A (PCR) Not Detected (NotDetected) Influenza Type B (PCR) Not Detected (NotDetected) M. pneumoniae (PCR) Not Detected (NotDetected) Parainfluenza 1 (PCR) Not Detected (NotDetected) Parainfluenza 2 (PCR) Not Detected (NotDetected) Parainfluenza 3 (PCR) Not Detected (NotDetected) Parainfluenza 4 (PCR) Not Detected (NotDetected) RSV (PCR) Not Detected (NotDetected) Entero/Rhino (PCR) Not Detected (NotDetected) Imaging Data Attestation: I personally reviewed and interpreted this imaging study as follows: (I agree with the radiologist's interpretation) Radiologist's Impression: Chest X-Ray 11/29/23 07:53 XR chest 1V portable CLINICAL HISTORY: dyspnea/possible sepsis COMPARISON STUDY: Chest radiograph October 03, 2023. PET/CT November 20, 2023. FINDINGS: Patient is mildly rotated. No pneumothorax or pleural effusion. Left subclavian pacer median sternotomy wires are noted. Cardiomediastinal silhouette is stable. There has been interval development of several airspace opacities within the right mid to upper lung. No consolidation within the left lung is present. No evidence for pulmonary edema. IMPRESSION: Interval development of several right lung airspace opacities suggestive of pneumonia. Post treatment radiographs to ensure resolution are recommended. ACT 112: Negative or not required by law. Electronically signed by: Santi Faustin M.D. 11/29/2023 8:21 AM MDM Narrative This is an 83-year-old male who presents to the emergency department for possible sepsis. Has been admitted at this hospital several times over the past 3 to 4 months for infections, history of UTIs, was at [facility] last month. Is now at home. See above for further details. Symptoms worsened today per EMS His temperature is 99.7, he is tachycardic with a heart rate of 100, blood pressure slightly elevated 186/91. He does feel warm. O2 saturation 96% on room air not requiring any supplemental oxygen. There is a mild cough present. Does not appear to be altered. IV was inserted and labs were obtained. Patient was given 500 mL normal saline bolus initially due to history of cardiomyopathy, did not want to over hydrate him given history of cardiomyopathy and CHF. An order was placed for continuous cardiac monitoring and at time of evaluation demonstrates a sinus rhythm in the low 100s. EKG interpreted by myself demonstrates T wave abnormality in the lateral leads, right bundle branch block, reviewed with ED attending Dr. More. Chest x-ray 1 view is concerning for interval development of pneumonia. Labs: Prominent leukocytosis at 20. Worsening thrombocytopenia at 94. Renal function is at baseline. No significant electrolyte disturbances. Glucose 199. Procalcitonin normal. Troponin is normal. Urinalysis pending. Patient was retaining 400 mL urine. Per chart review he had retained about 900 several months ago. [employer] upper respiratory panel pending Case reviewed with ED attending Dr. More. Based on prior cultures, history, and recent rehabilitation stay, we decided to administer vancomycin and cefepime for broad-spectrum coverage. Patient remained hemodynamically stable. I reviewed the case with Dr. Enriquez hospitalist who agrees to admit the patient. Discharge Plan Visit Data Chief Complaint: Urinary Symptoms Stated Complaint: AMS, FEVER ED Provider: Gail More ED Midlevel Provider: Markus Gibson. Discharge Instructions Interventions: ED Discharge Assessment Last Done: 11/29/23 11:12
[2023-11-29] MEDS ORDERED: SODIUM CHLORIDE 0.9% 500 ML IV ONE (07:52)
--- NOTE | 2023-11-29 07:59 | Emergency Department Note ---
ED Visit Note I have discussed this patient's case with Markus Gibson PA-C. I with the diagnosis and management decisions and have been personally involved in the case. .
[2023-11-29] MEDS ORDERED: ONDANSETRON INJ 2 MG/ML 2 ML VIAL IV STA (08:02)
[2023-11-29] MEDS ORDERED: ACETAMINOPHEN 1,000 MG/100 ML VIAL IV STA (08:02)
--- NOTE | 2023-11-29 08:22 | XRay Report ---
XR chest 1V portable CLINICAL HISTORY: dyspnea/possible sepsis COMPARISON STUDY: Chest radiograph October 03, 2023. PET/CT November 20, 2023. FINDINGS: Patient is mildly rotated. No pneumothorax or pleural effusion. Left subclavian pacer media n sternotomy wires are noted. Cardiomediastinal silhouette is stable. There has been interval develop ment of several airspace opacities within the right mid to upper lung. No consolidation within the le ft lung is present. No evidence for pulmonary edema. IMPRESSION: Interval development of several right lung airspace opacities suggestive of pneumonia. P ost treatment radiographs to ensure resolution are recommended. ACT 112: Negative or not required by law. Electronically signed by: Santi Faustin M.D. 11/29/2023 8:21 AM
[2023-11-29 08:33] LABS: Alanine Aminotransferase 8 U/L (7-52); Albumin Globulin Ratio 1.5 (0.9-2); Albumin Level 3.8 gm/dl (3.4-5.0); Alkaline Phosphatase 52 U/L (34-104); Anion Gap 8 (3-11); Aspartate Aminotransferase 12 U/L (13-39); BUN Creatinine Ratio 23.1 (10-20); Bilirubin,Total 0.6 mg/dl (0.2-1.0); Blood Urea Nitrogen 39 mg/dl (6-23); Calcium 8.8 mg/dl (8.6-10.3); Carbon Dioxide 22 mmol/L (21-32); Chloride 105 mmol/L (98-107); Creatinine Clr Calc Pharmacy 34.8 ml/min; Est GFR (African American) 43.2 ml/min; Est GFR (Non-African American) 37.3 ml/min; Globulin 2.6 gm/dl (2.5-4.0); Glucose 199 mg/dl (70-99(Fasting)); Potassium 4.5 mmol/L (3.5-5.1); Sodium 135 mmol/L (136-145); Total Protein 6.4 gm/dl (6.0-8.3)
[2023-11-29] MEDS ORDERED: VANCOMYCIN HCL 1,500 MG in SODIUM CHLORIDE 0.9% 500 ML IV ONE (08:37)
[2023-11-29] MEDS ORDERED: VANCOMYCIN CONSULT ACTIVE PRN ×2 (08:37→11:16)
[2023-11-29] MEDS ORDERED: CEFEPIME 2,000 MG/20 ML VIAL IV STA (08:37)
[2023-11-29 08:48] LABS: Basophils # (auto) 0.05 K/uL (0.00-0.20); Basophils % (auto) 0.2 %; Eosinophils # (auto) 0.01 K/uL (0.00-0.50); Hematocrit (blood only) 31.8 % (42.0-52.0); Hemoglobin 10.7 g/dl (14.0-18.0); Immature Granulocytes # (auto) 0.25 K/uL (0.01-0.20); Immature Granulocytes % (auto) 1.2 %; Lymphocytes # (auto) 0.53 K/uL (1.20-3.40); Lymphocytes % (auto) 2.6 %; Mean Corpuscular Hemoglobin 30.2 pg (25.0-34.0); Mean Corpuscular Hgb Conc 33.6 g/dL (32.0-36.0); Mean Corpuscular Volume 89.8 fL (80.0-100.0); Mean Platelet Volume 11.3 fL (9.4-12.4); Monocytes # (auto) 3.27 K/uL (0.11-0.59); Monocytes % (auto) 16.1 %; Neutrophils # (auto) 16.26 K/uL (1.40-6.50); Neutrophils % (auto) 79.9 %; Platelet Count 94 K/uL (130-400); Platelet Estimate Decreased (Normal); RDW Coefficient of Variation 14.6 % (11.5-14.5); RDW Standard Deviation 48.3 fL (36.4-46.3); Red Blood Count 3.54 M/uL (4.70-6.10); White Blood Count 20.37 K/ul (4.8-10.8)
--- NOTE | 2023-11-29 10:00 | History & Physical Report ---
Date of Service November 29, 2023 Assessment & Plan (1) Pneumonia: Plan: Acute shortness of breath, suspect acute pneumonia Leukocytosis of 28 from last to 6.25 on 11/25 No hypotension, mildly tachycardic on admission Baseline creatinine around 1.51.6, admitting creatinine 1.69 High sensitive troponin normal Procalcitonin normal Bio fire pending Chest x-ray: Interval development of right lung opacities suggestive of pneumonia, serial imagin Patient started empirically on cefepime/vancomycin due to pneumonia with multiple risk factors and recent hospitalization. Continue this. CRP added for trend. Sputum culture ordered. MRSA nares ordered Initially hemodynamically stable, blood pressure soft on reassessment (2) S/P CABG x 3: Plan: CAD Follows with cardiology, suspected to potentially have inadequate revascularization or progression of CAD. LV function had improved with pacing and catheterization was not recommended at cardiology/EPS follow-up 11/25/2023 Prior reduced ejection fraction normalized 2021 but then subsequently deteriorated and was suspected to have nonischemic disease. Continue Entresto, carvedilol. Plaavix temporarily held pending endoscopy on 12/04, this has been held since 11/27. - Rosuvastatin continued - Denies cp on admit. EKG Re-demonstrated RBBB. No ST segment changes on ekg, ?Lat T wave inversions. Trop negative. 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 Kirby - PET CT without distant mets - No acute initiation of therapy at this time, will tx active infection and continue scheduled f/u (4) S/P TURP: Plan: - +urinary retention on admit. Hollins ordered - Pt reprots frequent small volume incontinence. Suspect overflow. Hollins placed. UA pending. No dysuria - w/ hx of carcinoma as above (5) Stage III pressure ulcer of sacral region: Plan: - Wound care consulted - No purulence or discharge (6) Controlled type 2 diabetes mellitus with chronic kidney disease: Plan: - Home antiglycemics held - Goal 110-150 - basal bolus ordered - DM2/HH diet. BSG checks AC/HS (7) Urinary symptom or sign: Plan: - +infected appearing prelim UA - Full UA and UC pending - Covered with cefepime/vanc as noted. Adjust as needed based on speciation/sensitivities Plan DVT PPx: Heparin CODE: Full Diet: HH/DM2 Dispo: Tele x24 hours 2/2 ekg changes and poor appearance, downgrade when stable History of Present Illness Primary Care Provider: Dick Adams MD Sam is an 83-year-old male with past medical history of UTI, sacral ulcer, DM2, heart failure with EF 55 to 60%, CABG x 3, hypertension and recent TURP and extraction of bladder stones 10/14/2023 and poorly differentiated carcinoma with squamous differentiation on pathology presents with sepsis due to pneumonia and UTI. Denies feeling of retention, but does wear urine briefs and does not feel like his empties his bladder completely. Has frequent intermittent incontinence. Does not have to strain to void. No pain with voiding, no blood No fevers, +chills and night sweats which began 2 days ago. "No serious cough, occasionally us ecough drops but nothing unusual lately." Denies chest pain. "Had some leading to a triple bipass, some pain from that down the left side a while ago but nothing lately or new." Does endorses more shortness of breath in the last 2-3 days. No syncope/no presycnope. No nausea/vmoiting/diarrhea/contipation. "Having good BMs daily, nothing notable lately." No blood/melena Medical History: Reviewed Medications: Reviewed Surgical History: Reviewed Family history: Reviewed Allergies: Reviewed Social History: Reviewed Code Status: Full Code Allergies Allergy/AdvReac Type Severity Reaction Status Date / Time gluten Allergy Mild GI symptoms Verified 11/29/23 10:38 Penicillins Allergy Mild Rash Verified 11/29/23 10:38 Sulfa (Sulfonamide Allergy Mild Rash Verified 11/29/23 10:38 Antibiotics) cyclobenzaprine Allergy Unknown Unknown Verified 11/29/23 10:38 oxycodone AdvReac Intermediate Hallucinati Verified 11/29/23 10:38 ons Vtpmcbs-[id number]-QtZ Reductase AdvReac Intermediate Muscle Verified 11/29/23 10:38 Inhibitor weakness, [Ukwoxoi-Spt-Fyd Reductase brain fog Inhibitor] tramadol AdvReac Intermediate Hallucinati Verified 11/29/23 10:38 ons fosfomycin AdvReac Mild Dizziness Verified 11/29/23 10:38 Home Medications Medication Instructions Recorded Confirmed Type folic acid 400 mcg tablet 0.4 mg PO QAM 02/22/22 11/29/23 History blood sugar diagnostic (FreeStyle #300 ea 07/30/22 11/21/23 Rx Lite Strips) ferrous sulfate 325 mg (65 mg 325 mg PO Q2D 12/06/22 11/29/23 History iron) tablet (iron) pravastatin 10 mg tablet 10 mg PO QAM 12/06/22 11/29/23 History blood-glucose meter (FreeStyle #1 ea 02/08/23 11/21/23 Rx Lite Meter kit) levothyroxine 50 mcg tablet 50 mcg PO QAM #90 tabs 03/19/23 11/29/23 Rx (Synthroid) acetaminophen 650 mg 650 mg PO Q8H PRN Pain 05/03/23 11/29/23 History tablet,extended release (Arthritis Pain Relief (acetaminophen) ER) clindamycin HCl 300 mg capsule 600 mg (2 x 300 mg) PO DIRECTED 06/17/23 11/29/23 Rx PRN pretreat dental appt #10 caps latanoprost 0.005 % eye drops 1 drp OPB HS 06/21/23 11/29/23 History lancets 28 gauge (FreeStyle #300 ea 08/05/23 11/21/23 Rx Lancets) ondansetron HCl 4 mg tablet 4 mg PO Q8H PRN nausea and 09/09/23 11/29/23 Rx vomiting #30 tabs finasteride 5 mg tablet (Proscar) 5 mg PO HS #90 tabs 10/31/23 11/29/23 Rx carvedilol 3.125 mg tablet 3.125 mg PO BID #180 tabs 11/04/23 11/29/23 Rx pantoprazole 20 mg tablet,delayed 20 mg PO QAM 11/27/23 11/29/23 History release sacubitril 24 mg-valsartan 26 mg 1 tab PO BID #180 tabs 11/28/23 11/29/23 Rx tablet (Entresto) ascorbic acid (vitamin C) 500 mg 500 mg PO Q2D 11/29/23 11/29/23 History tablet (Vitamin C) cholecalciferol (vitamin D3) 50 50 mcg PO QAM 11/29/23 11/29/23 History mcg (2,000 unit) tablet (Vitamin D3) clopidogrel 75 mg tablet (Plavix) 0 mg PO PM 11/29/23 11/29/23 History coffee extract 100 mg-phosphatidyl 1 cap PO QAM 11/29/23 11/29/23 History serine 100 mg capsule (Neuriva Original) dulaglutide 3 mg/0.5 mL 3 mg subcut WK 11/29/23 11/29/23 History subcutaneous pen injector (Trulicity) Past Med/Surg History Medical History Encounter for pre-operative examination Sacral ulcer Being treated by [facility] wound care BPH (benign prostatic hyperplasia) JORGE (acute kidney injury) Hx: UTI (urinary tract infection) [facility] admission- sepsis 08/2023 History of recent pneumonia [facility] admission- aspiration pneumonia 08/2023 Acute UTI Urinary tract infection Pacemaker Medtronic placed 05/2022 Last check 11/25/23 JUMA/Darrick 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 Hollingsworth Brain TIA 02/2022 ? TIA vs CVA (2001)- patient reports left sided weakness with occasional "toe drop" r/t 2001 event- reason for Plavix CAD (coronary artery disease) CABG x3 (05/2022) Orthostatic hypotension Arthritis Pancreatic tumor ? tumor/cyst- yearly surveillance imaging GERD (gastroesophageal reflux disease) History of asthma Mobitz type 1 second degree AV block History of prostate cancer Treated with radiation, no surgery Hypertension Syncope Remote hx years ago, has a loop recorder in place Chronic obstructive pulmonary disease "Mild" Stage III chronic kidney disease Spinal stenosis of lumbar region Hypothyroidism Carotid artery stenosis Hypercholesteremia Diabetes NIDDM Surgical History History of prostate surgery History of urologic surgery Rezum procedure History of anesthesia reaction Trouble coming out of knee replacement + CABG History of cardiac cath 02/2022- no stents > CABG x3 05/2022 at [facility] S/P CABG x 3 05/2022>psu [facility] History of cataract surgery R/L History of esophagogastroduodenoscopy (EGD) H/O colonoscopy with polypectomy Malone teeth removed S/P lumbar laminectomy History of loop recorder Current History of knee replacement Right History of tonsillectomy and adenoidectomy H/O hernia repair As toddler Hx of cholecystectomy Family History Brother Colon cancer Prostate cancer Grandfather Rectal cancer Unknown Heart disease Cancer Hypertension Mother Diabetes Congestive heart failure Stroke Grandmother (Paternal) Stroke Grandfather (Maternal) Myocardial infarction Other No family history of adverse response to anesthesia Denies family history of Ovarian cancer Breast cancer Social History Smoking Status: Never smoker Tobacco Type: Cigarettes Second Hand Exposure: No; Do You Dip or Chew Tobacco: No; Hx Alcohol Use: Yes Alcohol type: hard liquor Preferred Language: Citizen Of [place] Communication Ability: Effective Visual Impairment: No Limitations Hearing Ability: Normal Allergist Required: No Beliefs That Will Affect Care: None marital status: Current Living Situation: Spouse current occupational status: retired current occupation: Retired How many Children do You have: 3 Feels Safe at Home: Yes Childhood Exposure to Second-Hand Smoke: Yes Diet: gluten free and lactose free Dental Care, Regularly: Yes Physical Activity Frequency: Daily Seatbelt Use: always Sunscreen Use: Yes Assistive Devices: Cane, Glasses, Hearing Aid - Bilateral and Walker Physical Exam 2 Physical Exam: General: A&O to name, year-1 but not month. NAD. Cooperative. Ill but nontoxic. HEENT: Atraumatic, normocephalic. Vision/hearing intact Pulm: CTAB A&P. -wheezes, -rales, -rhonchi. Symmetrical chest rise. No increased work of breathing. No respiratory distress. Cardiac: RRR, -mrg. Radial pulses intact and symmetrical. Abdominal: Nontender, nondistended, soft. BS present. : light yellow urine draining into hollins Skin: Pressure ulcer as noted w/p purulence/dc Results & Data Results & Data Vital Signs (Past 12 Hours) Vital Signs Temp Pulse Pulse Resp BP BP Pulse Ox 11/29/23 09:33 36.8 C 95 H 23 119/63 96 11/29/23 08:12 101 H 11/29/23 07:42 37.6 C H 103 H 26 H 186/91 H 96 O2 Del Method 11/29/23 09:33 Room Air 11/29/23 08:12 11/29/23 07:42 Room Air PG Care Time/CCT Total # of Minutes Spent Total Time Spent with Patient: Total time spent is greater than 50% in coordination of care (as documented) at patient's floor/unit and/or counseling patient: Coding Level of Care Code 32283 INT INP/OBS CARE 3/75MIN Diagnoses Pneumonia J18.9 S/P CABG x 3 Z95.1 Prostate cancer C61 S/P TURP Z90.79 Stage III pressure ulcer of sacral region L89.153 Controlled type 2 diabetes mellitus with chronic kidney disease E11.22 Urinary symptom or sign R39.9
[2023-11-29 10:24] LABS: Appearance Urine Clear (Clear); Bacteria Urine Automated Negative (Negative); Bilirubin Urine Negative (Negative); Blood Urine Trace (Negative); Color Urine Yellow; Epithelial Cell Urine Auto >30 /lpf (0-5); Glucose Urine UA Negative (Negative); Ketones Urine Negative (Negative); Leukocyte Esterase Urine 2+ (Negative); Nitrite Urine Positive (Negative); Protein Urine 2+ (Negative); Specific Gravity Urine 1.015 (1.000-1.030); Urobilinogen Urine Negative (Negative); WBC Urine Automated >30 /hpf (0-5); pH Urine 6.5 (4.5-7.5)
[2023-11-29] MEDS ORDERED: GLUCOSE 40% GEL 15 GM TUBE PO PRN (10:32)
[2023-11-29] MEDS ORDERED: GLUCAGON FOR INJ 1 MG VIAL SQ PRN (10:32)
[2023-11-29] MEDS ORDERED: CARBOHYDRATES FOR HYPOGLYCEMIA PO PRN (10:32)
[2023-11-29] MEDS ORDERED: GLUCOSE 10 TAB/TUBE PO PRN (10:32)
[2023-11-29] MEDS ORDERED: ACETAMINOPHEN 325 MG TAB PO PRN (10:32)
[2023-11-29] MEDS ORDERED: DEXTROSE 50% 50 ML SYRINGE IV PRN (10:32)
[2023-11-29] MEDS ORDERED: PHARMACY GLYCEMIC MGMT CONSULT PRN (10:32)
[2023-11-29 10:33] LABS: Adenovirus PCR Not Detected (NotDetected); Bordetella parapertussis PCR Not Detected (NotDetected); Bordetella pertussis PCR Not Detected (NotDetected); Chlamydia pneumoniae PCR Not Detected (NotDetected); Coronavirus 229E PCR Not Detected (NotDetected); Coronavirus CoV-2 (COVID19)PCR Not Detected (NotDetected); Coronavirus HKU1 PCR Not Detected (NotDetected); Coronavirus NL63 PCR Not Detected (NotDetected); Coronavirus OC43PCR Not Detected (NotDetected); Human Metapneumovirus PCR Not Detected (NotDetected); Influenza A PCR Not Detected (NotDetected); Influenza B PCR Not Detected (NotDetected); Mycoplasma pneumoniae PCR Not Detected (NotDetected); Parainfluenza Virus 1 PCR Not Detected (NotDetected); Parainfluenza Virus 2 PCR Not Detected (NotDetected); Parainfluenza Virus 3 PCR Not Detected (NotDetected); Parainfluenza Virus 4 PCR Not Detected (NotDetected); Respiratory Syncytial VirusPCR Not Detected (NotDetected); Rhinovirus/Enterovirus PCR Not Detected (NotDetected)
[2023-11-29] MEDS ORDERED: LACTATED RINGER'S 500 ML IV ONE ×2 (11:54→14:00)
--- NOTE | 2023-11-29 12:03 | Pharmacy Report ---
Pharm Abx/Gly Prg Nt - Date of Service November 29, 2023 - Scope Pharmacy has been consulted to manage vancomycin and glycemic control for this patient as per the Pharmacy & Therapeutics Committee approved dosing protocols. - Objective Vital Signs (Past 12hrs): Vital Signs Temp Pulse Pulse Resp BP BP Pulse Ox 11/29/23 10:50 85 20 93/51 L 97 11/29/23 09:33 36.8 C 95 H 23 119/63 96 11/29/23 08:12 101 H 11/29/23 07:42 37.6 C H 103 H 26 H 186/91 H 96 O2 Del Method 11/29/23 10:50 11/29/23 09:33 Room Air 11/29/23 08:12 11/29/23 07:42 Room Air Lab Results: Laboratory Tests (24 Hours) 11/29/23 07:56 WBC 20.37 H Neut # (Auto) 16.26 H Creatinine 1.69 H Est Cr Clr Drug Dosing 34.8 Procalcitonin 0.07 Micro Results: 11/29/23 10:11 Urine Culture - Pending Urine,Clean Catch 11/29/23 08:26 Aerobic Blood Culture - Pending Blood Anaerobic Blood Culture - Pending 11/29/23 07:56 Aerobic Blood Culture - Pending Blood Anaerobic Blood Culture - Pending Accuchecks BSG (last 24 hours):: 11/29/23 07:56 Glucose 199 H - Outpatient Anti-Diabetic Regimen Recent Pertinent Medications: Outpatient Anti-diabetic Regimen: * trulicity - Assessment & Plan Assessment: ID: * 83 year old M receiving vancomycin/cefepime empirically for possible pneumonia. PMHx significant for prostate CA, stage III ulcer in sacral area, recent TURP 09/2023, DM2. Blood cultures and urine cultures pending. MRSA nasal swab pending * Day # 1 of antimicrobial therapy Glycemic: * Pharmacy consulted for glycemic management. Patient only on trulicity at home, but with labile blood sugars per provider notes. Patient known to glycemic service from 09/2023 admission. Will plan to utilize similar parameters for insulin. May consider low dose basal if BSGs trend upward. Plan: ANTIMICROBIAL THERAPY Vancomycin * Received loading dose of 1500 mg x 1 in ED * Will start maintenance dose of 750 mg iv q 24 hours - this dosing is estimated to achieve target AUC/AFSHIN of 400-600 * Scr appears to be at baseline, will plan to order vancomycin level in next 2 days if plan is to continue INPATIENT GLYCEMIC CONTROL Basal Insulin * Lantus - hold Bolus Insulin * NovoLog per scale ACHS or Q6hrs while NPO * Goal Range: Low 120 mg/dL - High 160 mg/dL * Correction Factor: 35 mg/dL/unit * Nutritional / Prandial insulin per carb ratio of 1 unit per 12 grams CHO consumed Pharmacy will follow patient and adjust orders on a daily basis. Thank you for allowing us to participate in this patients care.
--- NOTE | 2023-11-29 12:04 | Electrocardiogram Report ---
Test Reason : Blood Pressure : / mmHG Vent. Rate : 099 BPM Atrial Rate : 099 BPM P-R Int : 184 ms QRS Dur : 140 ms QT Int : 384 ms P-R-T Axes : 000 -61 100 degrees QTc Int : 492 ms Normal sinus rhythm Left axis deviation Right bundle branch block T wave abnormality, consider lateral ischemia Abnormal ECG When compared with ECG of 03-OCT-2023 09:58, TN interval has decreased T wave inversion now evident in Lateral leads Confirmed by Ludin Brownlee ([id number]) on 11/29/2023 12:04:42 PM Referred By: REFERRED SELF Confirmed By:Ludin Brownlee
[2023-11-29 12:25] LABS: C Reactive Protein < 0.50 mg/dl (0-0.5)
[2023-11-29] MEDS ORDERED: LACTATED RINGER'S 1,000 ML IV SCH (13:30)
[2023-11-29] MEDS ORDERED: ENOXAPARIN INJ 40 MG/0.4 ML SYR SQ SCH (14:00)
[2023-11-29] MEDS ORDERED: LACTATED RINGER'S 500 ML IV SCH (14:03)
[2023-11-29] MEDS: INSULIN ASPART PER UNIT CHARGE SC SCH ×3 (15:24→22:40)
[2023-11-29] MEDS: ASCORBIC ACID 500 MG TAB PO SCH (15:24)
--- NOTE | 2023-11-29 15:49 | Urology Consultation ---
Date of Consultation November 29, 2023 Assessment & Plan (1) Pneumonia: (2) Hyperkalemia: (3) Fatigue: (4) Squamous cell carcinoma of prostate: (5) Stage III pressure ulcer of sacral region: (6) 1st degree AV block: (7) Dyslipidemia: (8) IVCD (intraventricular conduction defect): (9) Memory loss: (10) Controlled type 2 diabetes mellitus with chronic kidney disease: (11) TIA (transient ischemic attack): Plan Well-known patient with squamous cell carcinoma of the prostate with history of adenocarcinoma the prostate status post radiation. Had a complicated few years of increasing lower urinary tract issues. Had increasing issues with retention. Had subsequently undergone procedure due to severe retention issues and hematuria. Developed worsening issues with retention and subsequently underwent resection found to have squamous cell carcinoma of the prostate with significant obstructive issues. Patient had dealt with severe deconditioning and overall worsening clinical picture for multiple issues with recurrent infections and bother. Patient had catheter removed approximately a month ago. Has been having some leakage and control issues but otherwise has been voiding without major issue. Patient had developed shortness of breath with dyspnea and respiratory related issues and is being admitted for pneumonia. Concern for possible UTI and a catheter had been placed by the ER with reported 400 to 500 cc drained. Patient has incomplete emptying at baseline. Urine currently is showing nitrites however no bacteria on microanalysis. A urine culture has been sent. Does have blood and leuk esterase. Patient's other labs were reviewed. The hemoglobin was 10.7. White count is elevated at 20.37. Creatinine is 1.69 which is around baseline for the patient. Patient's PSA had previously been assessed and Manan at 1.5. He did not have a significant elevation with the squamous cell carcinoma which is not uncommon. Patient's imaging was all reviewed. Has chest x-ray showing signs of pneumonia. With his clinical picture and complaints with likely dealing with pneumonia with exacerbation of incomplete emptying. Patient and family are extremely concerned about recurrence of UTIs. At this point we will need to await the culture. Urine in catheter appears to be clear without blood or debris. Patient was not having considerable worsening of lower urinary issues. Was having leakage issues which did increase slightly in frequency but was not having severe burning pelvic pain discomfort or major issues. Will likely be able to trial removal of catheter once patient stabilizes. Would recommend against long-term catheterization if it can be avoided. Patient does have a moderate residual at baseline and overall has been improving drastically after resection of the necrotic tumor within the prostatic urethra. Patient is following closely with the medical oncologist. Is planning to undergo close observation and surveillance. Had undergone further assessment with imaging about possible metastatic disease and no sign of metastatic disease at this time. Reviewed extensively with patient and family. A long conversation about different options moving forward. Extensive conversation about monitoring. Patient's labs and vitals were all reviewed pertinent values in the HPI or plan section. Is dealing with some mild hypotension. Overall patient has been experiencing severe deconditioning and has low reserve with prolonged hospitalizations and time for recovery due to his multiple chronic medical issues and significant issues related to his malignancy. Blood pressure 91/62. Up is satting 98% on room air. All imaging was reviewed interpreted by myself. Patient is currently afebrile. Patient's complicated medical and surgical history is all reviewed and summarized above all imaging was reviewed interpreted by myself all labs and vitals were assessed and reviewed as above. Will plan to monitor the patient. Will await the urine culture results. Will likely need antibiotics for the pneumonia seen on the right side on current chest x-ray. May need to reassess with renal ultrasound. Would recommend likely removing catheter tomorrow morning depending on results. Patient has had significant issues with hematuria related to catheters and would likely benefit from removal soon as possible can continue to monitor with bladder scans and as long as patient is not having high residuals or inability to void will likely be able to maintain without catheter. Patient has follow-up set up with the office will plan to continue with that plan. Will await resolution of the patient's pneumonia and other issues and continue to monitor History of Present Illness Attending Physician: Rolando Hernandes MD History of Present Illness New consultation for patient with complicated urologic history. Has history of prostate cancer and was subsequently diagnosed with severe issues with retention and after undergoing resection found to have squamous cell carcinoma of the prostate. Patient is following closely with medical oncology. Is considering different options for possible management. Patient was admitted with shortness of breath and weakness. Found to have pneumonia. Patient and family are also extremely concerned about possible UTI. He had a catheter placed while in the ER and had approximately 400 cc of urine drained. Has been dealing with leakage issues since the resection however had severe obstructive issues with greater than 6 months of ongoing issues and close to 2 years of major issues related to urination. Patient currently was having mild episodes of urgency and frequency. Had leakage issues with control that have been an ongoing issue for the last couple months. There is concern for possible developing UTI/Pyelo, discomfort, and ill feelings. Patient denies pain into flank going down and radiating into groin and back in waves. Main issue has been shortness of breath and ill feelings. Discussed and reviewed patient's family history for any history of issues, infections, and disease. Also, discussed patient's medical/surgery history especially related to any history of urinary issues or stone disease. Patient was admitted and is undergoing observation with broad spectrum IV antibiotics. Allergies Allergy/AdvReac Type Severity Reaction Status Date / Time gluten Allergy Mild GI symptoms Verified 11/29/23 10:38 Penicillins Allergy Mild Rash Verified 11/29/23 10:38 Sulfa (Sulfonamide Allergy Mild Rash Verified 11/29/23 10:38 Antibiotics) cyclobenzaprine Allergy Unknown Unknown Verified 11/29/23 10:38 oxycodone AdvReac Intermediate Hallucinati Verified 11/29/23 10:38 ons Csvmcup-KFW-XrG Reductase AdvReac Intermediate Muscle Verified 11/29/23 10:38 Inhibitor weakness, [Kytmngo-Uix-Rfp Reductase brain fog Inhibitor] tramadol AdvReac Intermediate Hallucinati Verified 11/29/23 10:38 ons fosfomycin AdvReac Mild Dizziness Verified 11/29/23 10:38 Home Medications Medication Instructions Recorded Confirmed Type folic acid 400 mcg tablet 0.4 mg PO QAM 02/22/22 11/29/23 History blood sugar diagnostic (FreeStyle #300 ea 07/30/22 11/21/23 Rx Lite Strips) ferrous sulfate 325 mg (65 mg 325 mg PO Q2D 12/06/22 11/29/23 History iron) tablet (iron) pravastatin 10 mg tablet 10 mg PO QAM 12/06/22 11/29/23 History blood-glucose meter (FreeStyle #1 ea 02/08/23 11/21/23 Rx Lite Meter kit) levothyroxine 50 mcg tablet 50 mcg PO QAM #90 tabs 03/19/23 11/29/23 Rx (Synthroid) acetaminophen 650 mg 650 mg PO Q8H PRN Pain 05/03/23 11/29/23 History tablet,extended release (Arthritis Pain Relief (acetaminophen) ER) clindamycin HCl 300 mg capsule 600 mg (2 x 300 mg) PO DIRECTED 06/17/23 11/29/23 Rx PRN pretreat dental appt #10 caps latanoprost 0.005 % eye drops 1 drp OPB HS 06/21/23 11/29/23 History lancets 28 gauge (FreeStyle #300 ea 08/05/23 11/21/23 Rx Lancets) ondansetron HCl 4 mg tablet 4 mg PO Q8H PRN nausea and 09/09/23 11/29/23 Rx vomiting #30 tabs finasteride 5 mg tablet (Proscar) 5 mg PO HS #90 tabs 10/31/23 11/29/23 Rx carvedilol 3.125 mg tablet 3.125 mg PO BID #180 tabs 11/04/23 11/29/23 Rx pantoprazole 20 mg tablet,delayed 20 mg PO QAM 11/27/23 11/29/23 History release sacubitril 24 mg-valsartan 26 mg 1 tab PO BID #180 tabs 11/28/23 11/29/23 Rx tablet (Entresto) ascorbic acid (vitamin C) 500 mg 500 mg PO Q2D 11/29/23 11/29/23 History tablet (Vitamin C) cholecalciferol (vitamin D3) 50 50 mcg PO QAM 11/29/23 11/29/23 History mcg (2,000 unit) tablet (Vitamin D3) clopidogrel 75 mg tablet (Plavix) 0 mg PO PM 11/29/23 11/29/23 History coffee extract 100 mg-phosphatidyl 1 cap PO QAM 11/29/23 11/29/23 History serine 100 mg capsule (Neuriva Original) dulaglutide 3 mg/0.5 mL 3 mg subcut WK 11/29/23 11/29/23 History subcutaneous pen injector (Trulicity) Patient History Medical History Encounter for pre-operative examination Sacral ulcer Being treated by [facility] wound care BPH (benign prostatic hyperplasia) JORGE (acute kidney injury) Hx: UTI (urinary tract infection) [facility] admission- sepsis 08/2023 History of recent pneumonia [facility] admission- aspiration pneumonia 08/2023 Acute UTI Urinary tract infection Pacemaker Medtronic placed 05/2022 Last check 11/25/23 Sukhjinder 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 Hollingsworth Brain TIA 02/2022 ? TIA vs CVA (2001)- patient reports left sided weakness with occasional "toe drop" r/t 2001 event- reason for Plavix CAD (coronary artery disease) CABG x3 (05/2022) Orthostatic hypotension Arthritis Pancreatic tumor ? tumor/cyst- yearly surveillance imaging GERD (gastroesophageal reflux disease) History of asthma Mobitz type 1 second degree AV block History of prostate cancer Treated with radiation, no surgery Hypertension Syncope Remote hx years ago, has a loop recorder in place Chronic obstructive pulmonary disease "Mild" Stage III chronic kidney disease Spinal stenosis of lumbar region Hypothyroidism Carotid artery stenosis Hypercholesteremia Diabetes NIDDM Surgical History History of prostate surgery History of urologic surgery Rezum procedure History of anesthesia reaction Trouble coming out of knee replacement + CABG History of cardiac cath 02/2022- no stents > CABG x3 05/2022 at hers S/P CABG x 3 05/2022>psu gina History of cataract surgery R/L History of esophagogastroduodenoscopy (EGD) H/O colonoscopy with polypectomy [place] teeth removed S/P lumbar laminectomy History of loop recorder Current History of knee replacement Right History of tonsillectomy and adenoidectomy H/O hernia repair As toddler Hx of cholecystectomy Family History Brother Colon cancer Prostate cancer Grandfather Rectal cancer Unknown Heart disease Cancer Hypertension Mother Diabetes Congestive heart failure Stroke Grandmother (Paternal) Stroke Grandfather (Maternal) Myocardial infarction Other No family history of adverse response to anesthesia Denies family history of Ovarian cancer Breast cancer Social History Smoking Status: Never smoker Tobacco Type: Cigarettes Smoking End Date: 1977; Second Hand Exposure: No; Do You Dip or Chew Tobacco: No; Hx Alcohol Use: No Hx Substance Use: No Preferred Language: Estonian Communication Ability: Impaired Visual Impairment: No Limitations Hearing Ability: Normal Movie Projectionist Required: No Beliefs That Will Affect Care: None marital status: Current Living Situation: Spouse current occupational status: retired current occupation: Retired How many Children do You have: 3 Feels Safe at Home: Yes Safety Concerns: Feels Safe At This Time Childhood Exposure to Second-Hand Smoke: Yes Diet: gluten free and lactose free Dental Care, Regularly: Yes Physical Activity Frequency: Daily Seatbelt Use: always Sunscreen Use: Yes Assistive Devices: Glasses Review of Systems Review of Systems: All systems reviewed & are unremarkable except as noted in HPI & below Physical Exam Physical Exam: General: Alert and oriented x 3 in no acute distress. Significant deconditioning. HEENT: Normocephalic Atraumatic. Inspection normal. Cranial Nerves 2-12 Grossly intact. Nares are clear. Neck is supple. Normal inspection of face. Normal inspection of neck. Neurologic: No deficits on inspection. Baseline for motor function and sensory. Psychologic: Normal affect. Respiratory: Mild tachypnea. Nonlabored no use of accessory muscles. Cardiovascular: No tachycardia Skin: [place] and Dry. No rashes or visible lesions. Extremities: Moving without issues. No motor deficits on inspection Abdomen: Soft Non-distended. No rebound or guarding. : Interiano catheter in place draining clear yellow urine without debris or blood Results & Data Vital Signs (Past 12 Hours) Vital Signs Temp Pulse Pulse Resp BP BP Pulse Ox 11/29/23 15:00 74 14 91/62 L 98 11/29/23 13:23 79 18 105/60 98 11/29/23 12:35 82 11/29/23 12:33 81 22 91/61 L 98 11/29/23 10:50 85 20 93/51 L 97 11/29/23 09:33 36.8 C 95 H 23 119/63 96 11/29/23 08:12 101 H 11/29/23 07:42 37.6 C H 103 H 26 H 186/91 H 96 O2 Del Method 11/29/23 15:00 Room Air 11/29/23 13:23 Room Air 11/29/23 12:35 11/29/23 12:33 Room Air 11/29/23 10:50 11/29/23 09:33 Room Air 11/29/23 08:12 11/29/23 07:42 Room Air PG Care Time/CCT Total # of Minutes Spent Total Time Spent with Patient: Total time spent is greater than 50% in coordination of care (as documented) at patient's floor/unit and/or counseling patient: Coding Level of Care Code 04873 INT INP/OBS CARE 375MIN Diagnoses Pneumonia J18.9 Hyperkalemia E87.5 Fatigue R53.83 Squamous cell carcinoma of prostate C61 Stage III pressure ulcer of sacral region L89.153 1st degree AV block I44.0 Dyslipidemia E78.5 IVCD (intraventricular conduction defect) I45.4 Memory loss R41.3 Controlled type 2 diabetes mellitus with chronic kidney disease E11.22 TIA (transient ischemic attack) G45.9
[2023-11-29] MEDS ORDERED: LANTUS PER UNIT CHARGE SQ SCH (21:00)
[2023-11-29] MEDS: carvediloL 3.125 MG TAB PO SCH (22:39)
[2023-11-29] MEDS: FINASTERIDE 5 MG TAB PO SCH (22:39)
[2023-11-29] MEDS: VALSARTAN/SACUBITRIL 26/24MG TAB PO SCH (22:39)
[2023-11-29] MEDS: CEFEPIME 2,000 MG in SYRINGE 0 ML IV SCH (22:40)
[2023-11-29] MEDS: LATANOPROST 0.005% OP SOLN 2.5 ML BTL OPB SCH (22:40)
[2023-11-29] MEDS: VANCOMYCIN HCL 750 MG in SODIUM CHLORIDE 0.9% 250 ML IV SCH (22:40)
[2023-11-29] MEDS: HEPARIN SOD 5,000 UNIT/0.5 ML VIAL SQ SCH (22:40)
--- NOTE | 2023-11-29 23:00 | Ultrasound Report ---
ULTRASOUND KIDNEYS AND BLADDER CLINICAL HISTORY: Incomplete bladder emptying. COMPARISON STUDY: Abdominal CT dated 10/03/2023 TECHNIQUE: Real-time, grayscale, and color flow sonography of the kidneys and bladder is performed. I mages are reviewed in the transverse and longitudinal planes. FINDINGS: Kidneys: The kidneys are normal in size and echotexture. The right kidney measures 10.7 cm in length and the left kidney measures 10.9 cm in length. There is mild fullness of the left renal pelvis. No h ydronephrosis is seen. No shadowing renal calculi are identified. There are numerous bilateral renal cysts. The largest arises from the left upper pole and measures 5.2 cm. There is no sonographic evide nce of contour deforming renal mass lesion. No perinephric fluid is identified. Bladder: The bladder is decompressed around a Interiano catheter and is not well evaluated. The wall appe ars thickened. IMPRESSION: 1. The kidneys are normal in size without hydronephrosis. 2. The bladder is decompressed around the Interiano catheter and appears thick-walled. Correlate with cli nical findings and urinalysis. ACT 112: Negative or not required by law. Electronically signed by: Gordy Dominguez M.D. 11/29/2023 10:58 PM
[2023-11-30 05:15] LABS: Basophils # (auto) 0.07 K/uL (0.00-0.20); Basophils % (auto) 0.4 %; Eosinophils # (auto) 0.02 K/uL (0.00-0.50); Eosinophils % (auto) 0.1 %; Hematocrit (blood only) 27.9 % (42.0-52.0); Hemoglobin 9.4 g/dl (14.0-18.0); Immature Granulocytes # (auto) 0.19 K/uL (0.01-0.20); Lymphocytes # (auto) 1.31 K/uL (1.20-3.40); Mean Corpuscular Hemoglobin 30.8 pg (25.0-34.0); Mean Corpuscular Hgb Conc 33.7 g/dL (32.0-36.0); Mean Corpuscular Volume 91.5 fL (80.0-100.0); Monocytes # (auto) 2.79 K/uL (0.11-0.59); Monocytes % (auto) 14.9 %; Neutrophils # (auto) 14.32 K/uL (1.40-6.50); Neutrophils % (auto) 76.6 %; Platelet Count 94 K/uL (130-400); RDW Coefficient of Variation 14.7 % (11.5-14.5); RDW Standard Deviation 49.5 fL (36.4-46.3); Red Blood Count 3.05 M/uL (4.70-6.10)
[2023-11-30] MEDS: LEVOTHYROXINE SODIUM 50 MCG TABLET PO SCH (05:25)
[2023-11-30 05:32] LABS: C Reactive Protein 10.95 mg/dl (0-0.5); Calcium 8.1 mg/dl (8.6-10.3); Creatinine Clr Calc Pharmacy 27.8 ml/min; Est GFR (African American) 36.3 ml/min; Est GFR (Non-African American) 31.3 ml/min; Potassium 4.6 mmol/L (3.5-5.1)
[2023-11-30] MEDS: PRAVASTATIN SOD 10 MG TAB PO SCH (08:43)
[2023-11-30] MEDS: PANTOprazole 40 MG TAB PO SCH (08:43)
[2023-11-30] MEDS: VALSARTAN/SACUBITRIL 26/24MG TAB PO SCH ×2 (08:43→20:15)
[2023-11-30] MEDS: CHOLECALCIFEROL 1,000 UNITS 25 MCG TAB PO SCH (08:43)
[2023-11-30] MEDS: carvediloL 3.125 MG TAB PO SCH ×2 (08:44→20:15)
[2023-11-30] MEDS: FOLIC ACID 400 MCG TAB PO SCH (08:44)
[2023-11-30] MEDS: HEPARIN SOD 5,000 UNIT/0.5 ML VIAL SQ SCH ×2 (08:46→20:16)
[2023-11-30] MEDS: INSULIN ASPART PER UNIT CHARGE SC SCH ×4 (08:48→20:52)
[2023-11-30] MEDS ORDERED: NON-FORMULARY MEDICATION (Coffee Xt-Phosphatidyl Serine [Neuriva Original] 100-100 mg Caps PO SCH (09:00)
[2023-11-30] MEDS ORDERED: VANCOMYCIN HCL 1,250 MG in SODIUM CHLORIDE 0.9% 500 ML IV SCH (09:00)
[2023-11-30] MEDS: CEFEPIME 2,000 MG in SYRINGE 0 ML IV SCH (11:23)
--- NOTE | 2023-11-30 14:47 | Hospitalist Progress Note ---
Date of Service November 30, 2023 Assessment & Plan (1) Pneumonia: Plan: Acute shortness of breath, suspect acute pneumonia Leukocytosis of 20, trending down to 18 today 11/30 No hypotension, mildly tachycardic on admission Baseline creatinine around 1.51.6, admitting creatinine 1.69. Today creatinine is up to 1.9 High sensitive troponin normal Procalcitonin normal Bio fire pending Chest x-ray: Interval development of right lung opacities suggestive of pneumonia, serial imagin Patient started empirically on cefepime/vancomycin due to pneumonia with multiple risk factors and recent hospitalization. Continue this. CRP added for trend. Sputum culture ordered. MRSA nares negative Initially hemodynamically stable, blood pressure improved (2) Urinary symptom or sign: Plan: Urinalysis suggestive Urine culture growing gram-positive cocci, awaiting further identification and sensitivities Continue cefepime and vancomycin for now Urology on board is concerned that the patient has had urinary incontinence. He can never tell if he is retaining urine. Kidney ultrasound showed no hydronephrosis (3) S/P CABG x 3: Plan: CAD Follows with cardiology, suspected to potentially have inadequate revascularization or progression of CAD. LV function had improved with pacing and catheterization was not recommended at cardiology/EPS follow-up 11/25/2023 Prior reduced ejection fraction normalized 2021 but then subsequently deteriorated and was suspected to have nonischemic disease. Continue Entresto, carvedilol. Plaavix temporarily held pending endoscopy on 12/04, this has been held since 11/27. - Rosuvastatin continued - Denies cp on admit. EKG Re-demonstrated RBBB. No ST segment changes on ekg, ?Lat T wave inversions. Trop negative. 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 Kirby - PET CT without distant mets - No acute initiation of therapy at this time, will tx active infection and continue scheduled f/u (5) S/P TURP: Plan: - +urinary retention on admit. Interiano ordered - Pt reprots frequent small volume incontinence. Suspect overflow. Interiano placed. Urinalysis suggestive of UTI Follow urine cultures, growing gram-positive cocci Continue vancomycin and cefepime - w/ hx of carcinoma as above Urology on board (6) Stage III pressure ulcer of sacral region: Plan: - Wound care consulted - No purulence or discharge (7) Controlled type 2 diabetes mellitus with chronic kidney disease: Plan: - Home antiglycemics held - Goal 110-150 - basal bolus ordered - DM2/HH diet. BSG checks AC/HS Plan DVT PPx: Heparin CODE: Full Diet: HH/DM2 Admission and Anticipated Discharge Date Admission Date: November 29, 2023 Subjective Patient says that he is feeling better overall. Feeling stronger. Denies chest pain or shortness of breath Review of Systems Review of Systems: All systems reviewed & are unremarkable except as noted in Subjective Physical Exam Physical Exam: General: Awake, conversant Heart: S1, S2/regular rate and rhythm, no murmur rubs or gallops Lungs: Clear to auscultation bilaterally. Normal effort Abdomen: Soft/nontender/nondistended. No hepatosplenomegaly Extremities: No clubbing/cyanosis. No edema Behavior: Appropriate, cooperative Results & Data Results & Data Vital Signs (Past 12 Hours) Vital Signs Temp Pulse Resp BP Pulse Ox O2 Del Method 11/30/23 12:14 36.6 C 68 16 105/63 97 Room Air 11/30/23 07:59 36.3 C L 75 16 160/70 H 99 Room Air Laboratory Results Abnormal lab results 11/29/23 11/29/23 11/30/23 Range/Units 17:39 21:49 04:10 WBC 18.70 H (4.8-10.8) K/ul RBC 3.05 L (4.70-6.10) M/uL Hgb 9.4 L (14.0-18.0) g/dl Hct 27.9 L (42.0-52.0) % RDW Std Deviation 49.5 H (36.4-46.3) fL RDW Coeff of Vinny 14.7 H (11.5-14.5) % Plt Count 94 L (130-400) K/uL Neut # (Auto) 14.32 H (1.40-6.50) K/uL [place] # (Auto) 2.79 H (0.11-0.59) K/uL Chloride 108 H (98-107) mmol/L BUN 37 H (6-23) mg/dl Creatinine 1.95 H (0.6-1.4) mg/dl Glucose 109 H (70-99(Fasting)) mg/dl POC Glucose 139 H 128 H (70-99) mg/dl Calcium 8.1 L (8.6-10.3) mg/dl C-Reactive Protein 10.95 H (0-0.5) mg/dl 11/30/23 11/30/23 Range/Units 08:12 12:29 WBC (4.8-10.8) K/ul RBC (4.70-6.10) M/uL Hgb (14.0-18.0) g/dl Hct (42.0-52.0) % RDW Std Deviation (36.4-46.3) fL RDW Coeff of Vinny (11.5-14.5) % Plt Count (130-400) K/uL Neut # (Auto) (1.40-6.50) K/uL [place] # (Auto) (0.11-0.59) K/uL Chloride (98-107) mmol/L BUN (6-23) mg/dl Creatinine (0.6-1.4) mg/dl Glucose (70-99(Fasting)) mg/dl POC Glucose 109 H 170 H (70-99) mg/dl Calcium (8.6-10.3) mg/dl C-Reactive Protein (0-0.5) mg/dl PG Care Time/CCT Total # of Minutes Spent Total Time Spent with Patient: Total time spent is greater than 50% in coordination of care (as documented) at patient's floor/unit and/or counseling patient: Coding Level of Care Code 04949 SUB INP/OBS CARE 2/35MIN Diagnoses Pneumonia J18.9 Urinary symptom or sign R39.9 S/P CABG x 3 Z95.1 Prostate cancer C61 S/P TURP Z90.79 Stage III pressure ulcer of sacral region L89.153 Controlled type 2 diabetes mellitus with chronic kidney disease E11.22
[2023-11-30] MEDS: LANTUS PER UNIT CHARGE SC SCH (16:21)
[2023-11-30] MEDS: FINASTERIDE 5 MG TAB PO SCH (20:14)
[2023-11-30] MEDS: LATANOPROST 0.005% OP SOLN 2.5 ML BTL OPB SCH (20:17)
[2023-11-30] MEDS: CEFEPIME 1,000 MG in SYRINGE 0 ML IV SCH (21:55)
[2023-11-30] MEDS: VANCOMYCIN HCL 750 MG in SODIUM CHLORIDE 0.9% 250 ML IV SCH (21:55)
[2023-12-01 04:32] LABS: Basophils # (auto) 0.05 K/uL (0.00-0.20); Basophils % (auto) 0.5 %; Eosinophils # (auto) 0.03 K/uL (0.00-0.50); Eosinophils % (auto) 0.3 %; Hematocrit (blood only) 31.6 % (42.0-52.0); Hemoglobin 10.3 g/dl (14.0-18.0); Immature Granulocytes # (auto) 0.06 K/uL (0.01-0.20); Immature Granulocytes % (auto) 0.6 %; Lymphocytes # (auto) 1.09 K/uL (1.20-3.40); Mean Corpuscular Hgb Conc 32.6 g/dL (32.0-36.0); Mean Corpuscular Volume 92.1 fL (80.0-100.0); Mean Platelet Volume 11.8 fL (9.4-12.4); Monocytes # (auto) 1.66 K/uL (0.11-0.59); Monocytes % (auto) 16.7 %; Neutrophils # (auto) 7.06 K/uL (1.40-6.50); Neutrophils % (auto) 70.9 %; Platelet Count 108 K/uL (130-400); RDW Coefficient of Variation 14.5 % (11.5-14.5); RDW Standard Deviation 48.8 fL (36.4-46.3); Red Blood Count 3.43 M/uL (4.70-6.10); White Blood Count 9.95 K/ul (4.8-10.8)
[2023-12-01 04:46] LABS: BUN Creatinine Ratio 18.1 (10-20); Calcium 8.9 mg/dl (8.6-10.3); Creatinine Clr Calc Pharmacy 30.6 ml/min; Est GFR (African American) 40.8 ml/min; Est GFR (Non-African American) 35.2 ml/min; Potassium 4.2 mmol/L (3.5-5.1)
[2023-12-01] MEDS: LEVOTHYROXINE SODIUM 50 MCG TABLET PO SCH (06:01)
[2023-12-01] MEDS: PRAVASTATIN SOD 10 MG TAB PO SCH (09:07)
[2023-12-01] MEDS: HEPARIN SOD 5,000 UNIT/0.5 ML VIAL SQ SCH ×2 (09:07→21:38)
[2023-12-01] MEDS: FOLIC ACID 400 MCG TAB PO SCH (09:07)
[2023-12-01] MEDS: PANTOprazole 40 MG TAB PO SCH (09:08)
[2023-12-01] MEDS: CHOLECALCIFEROL 1,000 UNITS 25 MCG TAB PO SCH (09:08)
[2023-12-01] MEDS: carvediloL 3.125 MG TAB PO SCH ×2 (09:08→21:38)
[2023-12-01] MEDS: VALSARTAN/SACUBITRIL 26/24MG TAB PO SCH ×2 (09:08→21:37)
[2023-12-01] MEDS: INSULIN ASPART PER UNIT CHARGE SC SCH ×4 (09:10→21:39)
[2023-12-01] MEDS: LANTUS PER UNIT CHARGE SC SCH (09:11)
--- NOTE | 2023-12-01 09:23 | Pharmacy Report ---
Pharmacy PK ABX Note - Date of Service December 01, 2023 - Assessment and Plan Assessment 83 year old M receiving vancomycin/cefepime empirically for possible pneumonia. PMHx significant for prostate CA, stage III ulcer in sacral area, recent TURP 09/2023, DM2. MRSA nasal (-). Blood cultures (-) @ 48h. Urine culture (+) GPC. Day # 3 vancomycin Plan Vancomycin * Current regimen: 750mg IV q24h * Random level 14.6mcg/mL (~6 hr level) this AM- predicted to achieve ssAUC 402mg/L.hr with 51% probability. * Increase dose to 1gm IV q24h starting tonight- predicted to achieve ssAUC 511mg/L.hr with an 11% risk of toxicity. * Repeat level 12/03 if vancomycin continued. Pharmacy will continue to follow and will adjust dose/frequency as necessary. Thank you. Pharmacy has transitioned to AUC monitoring for vancomycin. AUC/AFSHIN is the preferred PK/PD target and is associated with decreased risk of nephrotoxicity compared to traditional trough targets.
[2023-12-01] MEDS: CEFEPIME 1,000 MG in SYRINGE 0 ML IV SCH ×2 (10:06→21:40)
--- NOTE | 2023-12-01 12:24 | Pharmacy Report ---
Pharmacy Glycemic Short Note 2 - Date of Service December 01, 2023 - Glycemic Short BSG Results (Last 24 hours): 11/30/23 11/30/23 11/30/23 12:29 17:06 20:36 Glucose POC Glucose 170 H 108 H 77 11/30/23 12/01/23 12/01/23 21:25 03:51 08:06 Glucose 99 POC Glucose 122 H 115 H 12/01/23 12:12 Glucose POC Glucose 140 H OUTPATIENT ANTIDIABETIC REGIMEN: * Trulicity 3 mg SC every Saturday * HbA1c: 7.5% (11/25/23) ASSESSMENT: * 83 yo M admitted on 11/29/23 secondary to pneumonia. Pharmacy has been consulted to assist with inpatient glycemic management. Patient is a Type 2 diabetic as an outpatient. Please refer to outpatient regimen and most recent HbA1c above. * Patient was started on Novolog only on the afternoon of 11/29. Fasting BSG yesterday was 109 mg/dL so basal continued to be held. However, when BSG increased to 170 mg/dL at lunch, felt it was appropriate to add 5 units of basal daily. Fasting was 115 mg/dL this AM so will continue. Loosened Novolog this morning because postprandials started to drop last evening. * Stressors include infection being treated with IV vancomycin and cefepime. PLAN FOR INPATIENT GLYCEMIC CONTROL: * Hold outpatient GLP1RA * Basal insulin * Lantus 5 units SC daily * Bolus insulin * NovoLog per scale ACHS or Q6hrs while NPO * Goal Range: Low 120 mg/dL - High 160 mg/dL * Correction Factor: 45 mg/dL/unit * Nutritional / Prandial insulin per carb ratio of 1 unit per 15 grams CHO consumed
--- NOTE | 2023-12-01 12:56 | Hospitalist Progress Note ---
Date of Service December 01, 2023 Assessment & Plan (1) Pneumonia: Plan: Acute shortness of breath, suspect acute pneumonia Leukocytosis resolved. 20,000, down to 9000 today No hypotension, mildly tachycardic on admission Baseline creatinine around 1.51.6, admitting creatinine 1.69. Creatinine is 1.7 today High sensitive troponin normal Procalcitonin normal Bio fire pending Chest x-ray: Interval development of right lung opacities suggestive of pneumo bere, serial imagin Patient started empirically on cefepime/vancomycin due to pneumonia with multiple risk factors and recent hospitalization. Continue this. CRP added for trend. Sputum culture ordered. MRSA nares negative Initially hemodynamically stable, blood pressure improved (2) Urinary symptom or sign: Plan: Urinalysis suggestive Urine culture growing coag negative staph, methicillin-resistant Continue vancomycin for now Urology on board, awaiting further plans is concerned that the patient has had urinary incontinence. He can never tell if he is retaining urine. Kidney ultrasound showed no hydronephrosis (3) S/P CABG x 3: Plan: CAD Follows with cardiology, suspected to potentially have inadequate revascularization or progression of CAD. LV function had improved with pacing and catheterization was not recommended at cardiology/EPS follow-up 11/25/2023 Prior reduced ejection fraction normalized 2021 but then subsequently deteriorated and was suspected to have nonischemic disease. Continue Entresto, carvedilol. Plaavix temporarily held pending endoscopy on 12/04, this has been held since 11/27. - Rosuvastatin continued - Denies cp on admit. EKG Re-demonstrated RBBB. No ST segment changes on ekg, ?Lat T wave inversions. Trop negative. 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 Kirby - PET CT without distant mets - No acute initiation of therapy at this time, will tx active infection and continue scheduled f/u (5) S/P TURP: Plan: - +urinary retention on admit. Interiano ordered - Pt reprots frequent small volume incontinence. Suspect overflow. Interiano placed. Urinalysis suggestive of UTI Follow urine cultures, growing coag negative staph Continue vancomycin - w/ hx of carcinoma as above Urology on board (6) Stage III pressure ulcer of sacral region: Plan: - Wound care consulted - No purulence or discharge (7) Controlled type 2 diabetes mellitus with chronic kidney disease: Plan: - Home antiglycemics held - Goal 110-150 - basal bolus ordered - DM2/HH diet. BSG checks AC/HS (8) Generalized weakness: Plan: PT and OT consulted Plan DVT PPx: Heparin CODE: Full Diet: HH/DM2 Admission and Anticipated Discharge Date Admission Date: November 29, 2023 Subjective Patient feels well. Denies chest pain or shortness of breath. Complains of feeling generally weak Review of Systems Review of Systems: General: Awake, conversant Heart: S1, S2/regular rate and rhythm, no murmur rubs or gallops Lungs: Clear to auscultation bilaterally. Normal effort Abdomen: Soft/nontender/nondistended. No hepatosplenomegaly Extremities: No clubbing/cyanosis. No edema Behavior: Appropriate, cooperative Physical Exam Physical Exam: General: Awake, conversant Heart: S1, S2/regular rate and rhythm, no murmur rubs or gallops Lungs: Clear to auscultation bilaterally. Normal effort Abdomen: Soft/nontender/nondistended. No hepatosplenomegaly Extremities: No clubbing/cyanosis. No edema Behavior: Appropriate, cooperative Results & Data Results & Data Vital Signs (Past 12 Hours) Vital Signs Temp Pulse Resp BP Pulse Ox O2 Del Method 12/01/23 10:52 36.3 C L 79 18 164/81 H 99 Room Air 12/01/23 08:05 36.4 C L 70 18 174/83 H 99 Room Air 12/01/23 03:13 36.4 C L 72 20 156/68 H 98 Room Air Laboratory Results Abnormal lab results 11/30/23 11/30/23 12/01/23 Range/Units 17:06 21:25 03:51 RBC 3.43 L (4.70-6.10) M/uL Hgb 10.3 L (14.0-18.0) g/dl Hct 31.6 L (42.0-52.0) % RDW Std Deviation 48.8 H (36.4-46.3) fL Plt Count 108 L (130-400) K/uL Neut # (Auto) 7.06 H (1.40-6.50) K/uL Lymph # (Auto) 1.09 L (1.20-3.40) K/uL [place] # (Auto) 1.66 H (0.11-0.59) K/uL BUN 32 H (6-23) mg/dl Creatinine 1.77 H (0.6-1.4) mg/dl POC Glucose 108 H 122 H (70-99) mg/dl 12/01/23 12/01/23 Range/Units 08:06 12:12 RBC (4.70-6.10) M/uL Hgb (14.0-18.0) g/dl Hct (42.0-52.0) % RDW Std Deviation (36.4-46.3) fL Plt Count (130-400) K/uL Neut # (Auto) (1.40-6.50) K/uL Lymph # (Auto) (1.20-3.40) K/uL [place] # (Auto) (0.11-0.59) K/uL BUN (6-23) mg/dl Creatinine (0.6-1.4) mg/dl POC Glucose 115 H 140 H (70-99) mg/dl PG Care Time/CCT Total # of Minutes Spent Total Time Spent with Patient: Total time spent is greater than 50% in coordination of care (as documented) at patient's floor/unit and/or counseling patient: Coding Level of Care Code 05942 SUB INP/OBS CARE 2/35MIN Diagnoses Pneumonia J18.9 Urinary symptom or sign R39.9 S/P CABG x 3 Z95.1 Prostate cancer C61 S/P TURP Z90.79 Stage III pressure ulcer of sacral region L89.153 Controlled type 2 diabetes mellitus with chronic kidney disease E11.22 Generalized weakness R53.1
[2023-12-01] MEDS: ASCORBIC ACID 500 MG TAB PO SCH (13:26)
[2023-12-01] MEDS: POLYETHYLENE (MIRALAX) 17 GM PACK PO SCH (13:35)
[2023-12-01] MEDS: FINASTERIDE 5 MG TAB PO SCH (21:38)
[2023-12-01] MEDS: DOCUSATE SODIUM 100 MG CAP PO SCH (21:38)
[2023-12-01] MEDS: LATANOPROST 0.005% OP SOLN 2.5 ML BTL OPB SCH (21:40)
[2023-12-01] MEDS: VANCOMYCIN HCL 1,000 MG in SODIUM CHLORIDE 0.9% 250 ML IV SCH (21:47)
[2023-12-02 05:07] LABS: Basophils # (auto) 0.04 K/uL (0.00-0.20); Basophils % (auto) 0.6 %; Eosinophils # (auto) 0.03 K/uL (0.00-0.50); Eosinophils % (auto) 0.4 %; Hematocrit (blood only) 32.6 % (42.0-52.0); Hemoglobin 10.9 g/dl (14.0-18.0); Immature Granulocytes # (auto) 0.07 K/uL (0.01-0.20); Lymphocytes # (auto) 1.11 K/uL (1.20-3.40); Lymphocytes % (auto) 15.3 %; Mean Corpuscular Hemoglobin 30.4 pg (25.0-34.0); Mean Corpuscular Hgb Conc 33.4 g/dL (32.0-36.0); Mean Corpuscular Volume 91.1 fL (80.0-100.0); Mean Platelet Volume 11.5 fL (9.4-12.4); Monocytes # (auto) 1.66 K/uL (0.11-0.59); Monocytes % (auto) 22.8 %; Neutrophils # (auto) 4.36 K/uL (1.40-6.50); Neutrophils % (auto) 59.9 %; Platelet Count 114 K/uL (130-400); RDW Coefficient of Variation 14.2 % (11.5-14.5); RDW Standard Deviation 47.7 fL (36.4-46.3); Red Blood Count 3.58 M/uL (4.70-6.10); White Blood Count 7.27 K/ul (4.8-10.8)
[2023-12-02 05:20] LABS: Calcium 9.1 mg/dl (8.6-10.3); Creatinine Clr Calc Pharmacy 28.8 ml/min; Est GFR (Non-African American) 32.8 ml/min; Potassium 4.2 mmol/L (3.5-5.1)
[2023-12-02] MEDS: LEVOTHYROXINE SODIUM 50 MCG TABLET PO SCH (05:53)
[2023-12-02] MEDS: DOCUSATE SODIUM 100 MG CAP PO SCH ×2 (08:50→20:54)
[2023-12-02] MEDS: VALSARTAN/SACUBITRIL 26/24MG TAB PO SCH ×2 (08:50→20:48)
[2023-12-02] MEDS: PANTOprazole 40 MG TAB PO SCH (08:50)
[2023-12-02] MEDS: POLYETHYLENE (MIRALAX) 17 GM PACK PO SCH (08:50)
[2023-12-02] MEDS: FOLIC ACID 400 MCG TAB PO SCH (08:50)
[2023-12-02] MEDS: CHOLECALCIFEROL 1,000 UNITS 25 MCG TAB PO SCH (08:51)
[2023-12-02] MEDS: carvediloL 3.125 MG TAB PO SCH ×2 (08:51→20:46)
[2023-12-02] MEDS: PRAVASTATIN SOD 10 MG TAB PO SCH (08:51)
[2023-12-02] MEDS: HEPARIN SOD 5,000 UNIT/0.5 ML VIAL SQ SCH ×2 (08:52→20:47)
[2023-12-02] MEDS: LANTUS PER UNIT CHARGE SC SCH (08:52)
[2023-12-02] MEDS: INSULIN ASPART PER UNIT CHARGE SC SCH ×4 (08:54→20:54)
[2023-12-02] MEDS: CEFEPIME 1,000 MG in SYRINGE 0 ML IV SCH ×2 (11:09→22:00)
--- NOTE | 2023-12-02 19:55 | Hospitalist Progress Note ---
Date of Service December 02, 2023 Assessment & Plan (1) Sepsis: Plan: 2nd to coag neg staph UTI 2nd to right-sided pneumonia resolved clinically blood cx's negative low platelets likely sepsis related count should rise over the next few days (2) Pneumonia: Plan: patchy infiltrates right lung on admission cxr minimal symptoms o2 sats high 90s in room air day #4 of IV cefepime had right-sided pneumonia in late 2022 aspiration events? will ask speech therapy to perform bedside swallow eval (3) Urinary tract infection: Plan: 2nd coag neg staph day #4 of IV vanco could consider zyvox PO to complete course hollins in place - had mild retention at admission on 11/29 (400cc documented) d/c hollins in am tomorrow for trial of void as recommended by Dr Sandra, Urology (4) S/P CABG x 3: Plan: h/o systolic CHF but improved EF with echo 07/2023 with EF 55-60% follows with Dr Leung - [facility] Cardiology Remains on coreg, Froylansto crestor Was to have EGD on 12/[address] David and plavix was being held for such but now the EGD is re-scheduled for December Thus, resume plavix No ischemic symptoms at this time (5) Prostate cancer: Plan: Initial dx in 1998 and treated at [facility] in [facility] Then had biochemical recurrence years later 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 Kirby at t he CCP Follows with [facility] Urology - Dr Ibrahima Sandra recent PET-CT without distant mets (6) S/P TURP: Plan: Mild urinary retention upon ER presentation s/p hollins placement on 11/29 in the ER I agree with urology to allow trial of void - will pull hollins in AM tomorrow and see how he does remains on finasteride but not alpha kelsey uncertain why he is not on alpha blockade - I don't see any discrete allergy history urology records reviewed - note from Dr Sandra from 2021 states the following - "At some point during the patient's major cardiac and subsequent other management issues patient has been taken off of the tamsulosin which he had been on in the past. Patient was told he would not be able to continue tamsulosin. It is difficult to determine exactly what led to that though patient does have a history of a sulfa allergy. Extensively reviewed other options. Discussed other alpha blockers. Due to the severity of the patient's issues as well as the major recent cardiac event discussed utilization of Rapaflo as an option. Will send this prescription over. Patient is currently taking finasteride and has been continuing." consider re-trial of alpha kelsey to try and avoid replacement of hollins - pt and his counseled that ongoing hollins usage will lead to recurrent UTIs (7) Stage III pressure ulcer of sacral region: Plan: Wound care consult appreciated Cont dressing changes, etc (8) Controlled type 2 diabetes mellitus with chronic kidney disease: Plan: hba1c 7.5% he is on Trulicity weekly at home remains stable/controlled on lantus-novolog while here (9) Generalized weakness: Plan: 2nd to recurrent admissions, recurrent infections, etc. 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 s/p [employer] Percepta ERP [employer] A[employer]LYST-P Bi-V Pacemaker 05/23/22 (all leads are epicardial) last interrogation 09/[address] Leung/N[facility] pacemaker working well (14) H/O: stroke: Plan: noted resume plavix for secondary prevention (was on hold for EGD that was tentatively scheduled on 12/04 but now moved to December) (15) GERD (gastroesophageal reflux disease): Plan: cont PPI (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: Plan: 10/14/23 - s/p TURP by Dr Sandra appreciate his consultation earlier in the admission 11/20/23 PET-CT without distant mets (17) Thrombocytopenia: Plan: likely 2nd to #1 count bottomed in the 90s, now trending up repeat CBC in am for stability Plan DVT PPx: Heparin 5000 BID passed PT eval updated at bedside Admission and Anticipated Discharge Date Admission Date: November 29, 2023 Subjective patient sitting in chair during the visit denies significant cough no dyspnea eating is robust - 100% of meals per nursing flowsheets still has hollins catheter in - draining clear yellow urine he complains of pain in his right arm extending from the shoulder down to the right hand no paresthesias no numbness or tingling does have restriction of right shoulder does have occasional neck pain as well at bedside -- multiple questions asked Review of Systems Review of Systems: gen - no fevers or chills; eating well cv - no chest pain pulm - no dyspnea or cough GI - no abd pain or N/V Physical Exam Physical Exam: gen - sitting in chair comfortably, NAD neck - no JVD mouth - MMM heart - RRR, s1 s2 lungs - CTA b/l; no rales; no wheezes musculo - right shoulder - periarticular muscle wasting noted (supraspinatus, infraspinatus); restricted active/passive ROM; tender over AC joint abd - soft NT ND BS+ ext - no edema, pulses 2+ b/l psych - awake, alert Results & Data Results & Data Vital Signs (Past 12 Hours) Vital Signs Temp Pulse Resp BP Pulse Ox O2 Del Method 12/02/23 19:26 Room Air 12/02/23 14:55 36.6 C 72 18 103/67 100 Room Air 12/02/23 10:53 36.8 C 69 16 92/59 L 98 Room Air 12/02/23 08:00 Room Air Laboratory Results Laboratory Results 12/01/23 12/01/23 12/01/23 08:06 12:12 17:51 WBC RBC Hgb Hct MCV MCH MCHC RDW Std Deviation RDW Coeff of Vinny Plt Count MPV Immature Gran % (Auto) Neut % (Auto) Lymph % (Auto) [place] % (Auto) Eos % (Auto) Baso % (Auto) Neut # (Auto) Lymph # (Auto) [place] # (Auto) Eos # (Auto) Baso # (Auto) Immature Gran # (Auto) Sodium Potassium Chloride Carbon Dioxide Anion Gap BUN Creatinine Est Cr Clr Drug Dosing Est GFR ( Amer) Est GFR (Non-Af Amer) BUN/Creatinine Ratio Glucose POC Glucose 115 H 140 H 112 H Calcium 12/01/23 12/02/23 12/02/23 20:57 04:35 08:15 WBC 7.27 RBC 3.58 L Hgb 10.9 L Hct 32.6 L MCV 91.1 MCH 30.4 MCHC 33.4 RDW Std Deviation 47.7 H RDW Coeff of Vinny 14.2 Plt Count 114 L MPV 11.5 Immature Gran % (Auto) 1.0 Neut % (Auto) 59.9 Lymph % (Auto) 15.3 [place] % (Auto) 22.8 Eos % (Auto) 0.4 Baso % (Auto) 0.6 Neut # (Auto) 4.36 Lymph # (Auto) 1.11 L [place] # (Auto) 1.66 H Eos # (Auto) 0.03 Baso # (Auto) 0.04 Immature Gran # (Auto) 0.07 Sodium 136 Potassium 4.2 Chloride 103 Carbon Dioxide 26 Anion Gap 7 BUN 30 H Creatinine 1.88 H Est Cr Clr Drug Dosing 28.8 Est GFR ( Amer) 38.0 Est GFR (Non-Af Amer) 32.8 BUN/Creatinine Ratio 16.0 Glucose 129 H POC Glucose 154 H 143 H Calcium 9.1 12/02/23 12/02/23 11:54 17:12 WBC RBC Hgb Hct MCV MCH MCHC RDW Std Deviation RDW Coeff of [place]inny Plt Count MPV Immature Gran % (Auto) Neut % (Auto) Lymph % (Auto) [place] % (Auto) Eos % (Auto) Baso % (Auto) Neut # (Auto) Lymph # (Auto) [place] # (Auto) Eos # (Auto) Baso # (Auto) Immature Gran # (Auto) Sodium Potassium Chloride Carbon Dioxide Anion Gap BUN Creatinine Est Cr Clr Drug Dosing Est GFR ( Amer) Est GFR (Non-Af Amer) BUN/Creatinine Ratio Glucose POC Glucose 153 H 111 H Calcium Diagnostic Findings Microbiology 11/29/23 10:11 Urine,Clean Catch Urine Culture - Final Coag negative Staphylococcus 11/29/23 07:56 Blood Aerobic Blood Culture - Preliminary No growth in Aerobic bottle after 48 hours. 11/29/23 07:56 Blood Anaerobic Blood Culture - Preliminary No growth in Anaerobic bottle after 48 hours. 11/29/23 08:26 Blood Aerobic Blood Culture - Preliminary No growth in Aerobic bottle after 48 hours. 11/29/23 08:26 Blood Anaerobic Blood Culture - Preliminary No growth in Anaerobic bottle after 48 hours. PG Care Time/CCT Total # of Minutes Spent Total Time Spent with Patient: Total time spent is greater than 50% in coordination of care (as documented) at patient's floor/unit and/or counseling patient: Coding Level of Care Code 09862 SUB INP/OBS CARE 3/50MIN Diagnoses Sepsis A41.9; R65.21; N17.9 Acute renal failure type: unspecified Sepsis acute organ dysfunction status: with acute organ dysfunction Sepsis type: sepsis due to unspecified organism Severe sepsis acute organ dysfunction type: acute renal failure Severe sepsis shock status: with septic shock Pneumonia J18.9 Urinary tract infection N39.0 S/P CABG x 3 Z95.1 Prostate cancer C61 S/P TURP Z90.79 Stage III pressure ulcer of sacral region L89.153 Controlled type 2 diabetes mellitus with chronic kidney disease E11.22 Generalized weakness R53.1 Chronic diastolic CHF (congestive heart failure) I50.32 Coronary artery disease involving [place] coronary artery of [place] heart without angina pectoris I25.10 Associated angina: without angina Coronary Disease-Associated Artery/Lesion type: [place] artery [place] vs. transplanted heart: [place] heart Hypothyroidism E03.9 Pacemaker Z95.0 H/O: stroke Z86.73 GERD (gastroesophageal reflux disease) K21.9 Squamous cell carcinoma of prostate C61 Thrombocytopenia D69.6 (1) Sepsis Acute renal failure type: unspecified Sepsis acute organ dysfunction status: with acute organ dysfunction Sepsis type: sepsis due to unspecified organism Severe sepsis acute organ dysfunction type: acute renal failure Severe sepsis shock status: with septic shock Qualified Code(s): A41.9 - Sepsis, unspecified organism; R65.21 - Severe sepsis with septic shock; N17.9 - Acute kidney failure , unspecified (11) CAD (coronary artery disease) Associated angina: without angina Coronary Disease-Associated Artery/Lesion type: [place] artery [place] vs. transplanted heart: [place] heart Qualified Code(s): I25.10 - Atherosclerotic heart disease of [place] coronary artery without angina pectoris
[2023-12-02] MEDS: FINASTERIDE 5 MG TAB PO SCH (20:46)
[2023-12-02] MEDS: LATANOPROST 0.005% OP SOLN 2.5 ML BTL OPB SCH (20:47)
[2023-12-02] MEDS: VANCOMYCIN HCL 1,000 MG in SODIUM CHLORIDE 0.9% 250 ML IV SCH (22:01)
[2023-12-03 05:23] LABS: Hematocrit (blood only) 32.4 % (42.0-52.0); Hemoglobin 11.2 g/dl (14.0-18.0); Mean Corpuscular Hemoglobin 30.7 pg (25.0-34.0); Mean Corpuscular Hgb Conc 34.6 g/dL (32.0-36.0); Mean Corpuscular Volume 88.8 fL (80.0-100.0); Mean Platelet Volume 11.7 fL (9.4-12.4); Platelet Count 126 K/uL (130-400); RDW Coefficient of Variation 14.1 % (11.5-14.5); RDW Standard Deviation 45.9 fL (36.4-46.3); Red Blood Count 3.65 M/uL (4.70-6.10)
[2023-12-03 05:25] LABS: BUN Creatinine Ratio 18.5 (10-20); Calcium 9.3 mg/dl (8.6-10.3); Creatinine Clr Calc Pharmacy 28.7 ml/min; Est GFR (African American) 37.7 ml/min; Est GFR (Non-African American) 32.5 ml/min; Potassium 4.4 mmol/L (3.5-5.1)
[2023-12-03] MEDS: LEVOTHYROXINE SODIUM 50 MCG TABLET PO SCH (06:47)
[2023-12-03] MEDS: DOCUSATE SODIUM 100 MG CAP PO SCH ×2 (08:39→21:15)
[2023-12-03] MEDS: CHOLECALCIFEROL 1,000 UNITS 25 MCG TAB PO SCH (08:39)
[2023-12-03] MEDS: VALSARTAN/SACUBITRIL 26/24MG TAB PO SCH ×2 (08:39→21:16)
[2023-12-03] MEDS: HEPARIN SOD 5,000 UNIT/0.5 ML VIAL SQ SCH ×2 (08:40→21:15)
[2023-12-03] MEDS: PANTOprazole 40 MG TAB PO SCH (08:40)
[2023-12-03] MEDS: POLYETHYLENE (MIRALAX) 17 GM PACK PO SCH (08:41)
[2023-12-03] MEDS: carvediloL 3.125 MG TAB PO SCH ×2 (08:41→21:15)
[2023-12-03] MEDS: FOLIC ACID 400 MCG TAB PO SCH (08:41)
[2023-12-03] MEDS: PRAVASTATIN SOD 10 MG TAB PO SCH (08:41)
[2023-12-03] MEDS: LANTUS PER UNIT CHARGE SC SCH (08:49)
[2023-12-03] MEDS: INSULIN ASPART PER UNIT CHARGE SC SCH ×4 (08:50→21:46)
[2023-12-03] MEDS: CEFEPIME 1,000 MG in SYRINGE 0 ML IV SCH (10:52)
[2023-12-03] MEDS: ASCORBIC ACID 500 MG TAB PO SCH (12:34)
--- NOTE | 2023-12-03 13:41 | Pharmacy Report ---
Pharmacy Glycemic Sign Off Nt - Date of Service December 03, 2023 - Assessment & Plan ASSESSMENT: * Pharmacy was consulted by Dr Hernandes on 11/29/23 for glycemic control and to write orders per [facility] inpatient glycemic control protocol. * Major changes made by pharmacy to antidiabetic regimen include: * Novolog adjusted to a weight based stress of 1.5 * Lantus at approx 0.1 units/kg every morning. * Patient has been receiving/requiring 10-12 units of insulin per day for adequate glycemic control * BSGs ranging 111-154 mg/dl * Regimen has only required minor adjustments over the past 48hrs to achieve this level of control * Do not anticipate further changes in patient status that would quickly deteriorate glycemic control (i.e. patient to be NPO for upcoming procedure, steroids tapering, starting tube feedings, etc). * Please see recommendations for outpatient antidiabetic regimen below. PLAN FOR INPATIENT GLYCEMIC CONTROL: No changes needed to current regimen. * Continue basal insulin with Lantus 5 units SQ Daily * Continue NovoLog per scale ACHS/Q6hrs while NPO * Goal range = 120-160 mg/dl * CF = 45 mg/dl/unit * CR = 1 unit for ever 15 g CHO consumed * Pharmacy is signing off of glycemic consult and will no longer be making adjustments to inpatient regimen. Please feel free to re-consult if needed. Thank you.
--- NOTE | 2023-12-03 14:48 | Fluoroscopy Report ---
FL video swallow HISTORY: Pneumonia. r/o aspiration TECHNIQUE: Video fluoroscopic evaluation of swallowing was performed in the AP and lateral projection s by the speech pathology staff. The patient is fed nectar-thick and thin liquid barium, a barium coa felicity wafer, and barium pudding. FLUOROSCOPY TIME: 2 minutes and 7 seconds.. Ka,r: 10.9 mGy COMPARISON STUDY: None. FINDINGS: There are a few episodes of incomplete epiglottic deflection. This likely accounts for the penetration with the thin liquid barium. No aspiration identified during the examination. Moderate va llecular residue was seen with the thicker barium consistencies. IMPRESSION: 1. No aspiration identified. 2. Please see the speech pathologist report for detailed findings and recommendations. ACT 112: Negative or not required by law. Electronically signed by: Jared Brock M.D. 12/03/2023 2:46 PM
--- NOTE | 2023-12-03 19:09 | Hospitalist Progress Note ---
Date of Service December 03, 2023 Assessment & Plan (1) Sepsis: Plan: 2nd to coag neg staph UTI 2nd to right-sided pneumonia resolved blood cx's negative low platelets likely sepsis related count is stable/acceptable (2) Pneumonia: Plan: patchy infiltrates right lung on admission cxr minimal symptoms o2 sats high 90s in room air day #5 of IV cefepime plan 7 days of Rx then stop had right-sided pneumonia in late 2022 aspiration events? speech therapy saw patient in consult - video swallow completed -- no ruel aspiration (3) Urinary tract infection: Plan: 2nd coag neg staph day #5 of IV vanco cont vanco IV today then switch to PO zyvox tomorrow can complete the course with zyvox at home if cost is not prohibitive would do total 14 days of IV/PO therapy will need to investigate the cost hollins removed thus far voiding adequately (4) S/P CABG x 3: Plan: h/o systolic CHF but improved EF with echo 07/2023 with EF 55-60% follows with Dr Leung - [facility] [place] [facility] Remains on coreg, Entresto, crestor Was to have EGD on 12/[address] David and plavix was being held for such but now the EGD is re-scheduled for December Thus, resumed plavix No ischemic symptoms at this time (5) Prostate cancer: Plan: Initial dx in 1998 and treated at [facility] in [facility] Then had biochemical recurrence years later 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 Kirby at t he [facility]CP Follows with [facility] [place] [facility] - Dr Ibrahima Sandra recent PET-CT without distant mets (6) S/P TURP: Plan: Mild urinary retention upon ER presentation s/p hollins placement on 11/29 in the ER I agree with urology to allow trial of void - will pull hollins in AM tomorrow and see how he does remains on finasteride but not alpha kelsey uncertain why he is not on alpha blockade - I don't see any discrete allergy history urology records reviewed - note from Dr Sandra from 2021 states the following - "At some point during the patient's major cardiac and subsequent other management issues patient has been taken off of the tamsulosin which he had been on in the past. Patient was told he would not be able to continue tamsulosin. It is difficult to determine exactly what led to that though patient does have a history of a sulfa allergy. Extensively reviewed other options. Discussed other alpha blockers. Due to the severity of the patient's issues as well as the major recent cardiac event discussed utilization of Rapaflo as an option. Will send this prescription over. Patient is currently taking finasteride and has been continuing." consider re-trial of alpha kelsey to try and avoid replacement of hollins - pt and his counseled that ongoing hollins usage will lead to recurrent UTIs will contact Dr Sandra for his opinion re: alpha kelsey (7) Stage III pressure ulcer of sacral region: Plan: Wound care consult appreciated Cont dressing changes, etc (8) Controlled type 2 diabetes mellitus with chronic kidney disease: Plan: hba1c 7.5% he is on Trulicity weekly at home remains stable/controlled on lantus-novolog while here resume Trulicity at d/c (9) Generalized weakness: Plan: 2nd to recurrent admissions, recurrent infections, etc. 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 05/23/22 (all leads are epicardial) last interrogation 09/[address] Leung/Nelson MCG[facility]OR pacemaker working well (14) H/O: stroke: Plan: noted resumed plavix for secondary prevention (was on hold for EGD that was tentatively scheduled on 12/04 but now moved to December) (15) GERD (gastroesophageal reflux disease): Plan: cont PPI (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: Plan: 10/14/23 - s/p TURP by Dr Sandra appreciate his consultation earlier in the admission 11/20/23 PET-CT without distant mets (17) Thrombocytopenia: Plan: likely 2nd to #1 count bottomed in the 90s, now trending up repeat CBC in am for stability Plan DVT PPx: Heparin 5000 BID passed PT eval updated by phone this evening she expresses concern about recurrent urinary retentions and his LUTS wants us to observe him thru 12/05 in the hospital Admission and Anticipated Discharge Date Admission Date: November 29, 2023 Subjective tele stable - pacing sitting in chair during the visit eating well hollins removed this morning is voiding spontaneously but is having ongoing leaking and incontinence but PVRs <200cc he denies any new complaints Review of Systems Review of Systems: cv - no chest pain pulm - no dyspnea, no cough GI - no abd pain or N/V Physical Exam Physical Exam: gen - sitting in chair comfortably, NAD - looks the same as yesterday neck - no JVD mouth - MMM heart - RRR, s1 s2 lungs - CTA b/l; no rales; no wheezes abd - soft NT ND BS+ ext - no edema, pulses 2+ b/l psych - awake, alert - pleasant confusion Results & Data Results & Data Vital Signs (Past 12 Hours) Vital Signs Temp Pulse Pulse Resp BP Pulse Ox Pulse Ox 12/03/23 15:33 36.4 C L 69 18 124/71 99 12/03/23 14:59 64 12/03/23 12:09 36.4 C L 70 18 114/70 95 12/03/23 10:00 98 12/03/23 08:50 12/03/23 07:42 36.4 C L 70 18 144/75 H 98 12/03/23 07:27 70 O2 Del Method O2 Del Method 12/03/23 15:33 Room Air 12/03/23 14:59 12/03/23 12:09 Room Air 12/03/23 10:00 Room Air 12/03/23 08:50 Room Air 12/03/23 07:42 Room Air 12/03/23 07:27 Laboratory Results Laboratory Results - last 24 hr 12/02/23 12/03/23 12/03/23 20:18 04:28 08:13 WBC 5.80 RBC 3.65 L Hgb 11.2 L Hct 32.4 L MCV 88.8 MCH 30.7 MCHC 34.6 RDW Std Deviation 45.9 RDW Coeff of Vinny 14.1 Plt Count 126 L MPV 11.7 Sodium 137 Potassium 4.4 Chloride 104 Carbon Dioxide 26 Anion Gap 7 BUN 35 H Creatinine 1.89 H Est Cr Clr Drug Dosing 28.7 Est GFR ( Amer) 37.7 Est GFR (Non-Af Amer) 32.5 BUN/Creatinine Ratio 18.5 Glucose 113 H POC Glucose 147 H 143 H Calcium 9.3 12/03/23 12/03/23 12:26 17:05 WBC RBC Hgb Hct MCV MCH MCHC RDW Std Deviation RDW Coeff of Vinny Plt Count MPV Sodium Potassium Chloride Carbon Dioxide Anion Gap BUN Creatinine Est Cr Clr Drug Dosing Est GFR ( Amer) Est GFR (Non-Af Amer) BUN/Creatinine Ratio Glucose POC Glucose 142 H 93 Calcium PG Care Time/CCT Total # of Minutes Spent Total Time Spent with Patient: Total time spent is greater than 50% in coordination of care (as documented) at patient's floor/unit and/or counseling patient: Coding Level of Care Code 91070 SUB INP/OBS CARE 2/35MIN Diagnoses Sepsis A41.9; R65.21; N17.9 Acute renal failure type: unspecified Sepsis acute organ dysfunction status: with acute organ dysfunction Sepsis type: sepsis due to unspecified organism Severe sepsis acute organ dysfunction type: acute renal failure Severe sepsis shock status: with septic shock Pneumonia J18.9 Urinary tract infection N39.0 S/P CABG x 3 Z95.1 Prostate cancer C61 S/P TURP Z90.79 Stage III pressure ulcer of sacral region L89.153 Controlled type 2 diabetes mellitus with chronic kidney disease E11.22 Generalized weakness R53.1 Chronic diastolic CHF (congestive heart failure) I50.32 Coronary artery disease involving [place] coronary artery of [place] heart without angina pectoris I25.10 Associated angina: without angina Coronary Disease-Associated Artery/Lesion type: [place] artery [place] vs. transplanted heart: [place] heart Hypothyroidism E03.9 Pacemaker Z95.0 H/O: stroke Z86.73 GERD (gastroesophageal reflux disease) K21.9 Squamous cell carcinoma of prostate C61 Thrombocytopenia D69.6 (1) Sepsis Acute renal failure type: unspecified Sepsis acute organ dysfunction status: with acute organ dysfunction Sepsis type: sepsis due to unspecified organism Severe sepsis acute organ dysfunction type: acute renal failure Severe sepsis shock status: with septic shock Qualified Code(s): A41.9 - Sepsis, unspecified organism; R65.21 - Severe sepsis with septic shock; N17.9 - Acute kidney failure, unspecified (11) CAD (coronary artery disease) Associated angina: without angina Coronary Disease-Associated Artery/Lesion type: [place] artery [place] vs. transplanted heart: [place] heart Qualified Code(s): I25.10 - Atherosclerotic heart disease of [place] coronary artery without angina pectoris
[2023-12-03] MEDS: CLOPIDOGREL BISULFATE 75 MG TAB PO SCH (21:15)
[2023-12-03] MEDS: FINASTERIDE 5 MG TAB PO SCH (21:16)
[2023-12-03] MEDS: LATANOPROST 0.005% OP SOLN 2.5 ML BTL OPB SCH (21:16)
[2023-12-03] MEDS: VANCOMYCIN HCL 1,000 MG in SODIUM CHLORIDE 0.9% 250 ML IV SCH (22:00)
[2023-12-04] MEDS: CEFEPIME 1,000 MG in SYRINGE 0 ML IV SCH ×3 (01:29→21:02)
[2023-12-04 05:46] LABS: Creatinine Clr Calc Pharmacy 30.6 ml/min; Est GFR (African American) 40.8 ml/min; Est GFR (Non-African American) 35.2 ml/min
[2023-12-04] MEDS: LEVOTHYROXINE SODIUM 50 MCG TABLET PO SCH (06:39)
[2023-12-04] MEDS: INSULIN ASPART PER UNIT CHARGE SC SCH ×4 (08:52→20:35)
[2023-12-04] MEDS: POLYETHYLENE (MIRALAX) 17 GM PACK PO SCH (08:55)
[2023-12-04 08:57] LABS: Basophils # (auto) 0.05 K/uL (0.00-0.20); Basophils % (auto) 0.9 %; Eosinophils # (auto) 0.02 K/uL (0.00-0.50); Eosinophils % (auto) 0.4 %; Hematocrit (blood only) 38.2 % (42.0-52.0); Hemoglobin 12.5 g/dl (14.0-18.0); Immature Granulocytes # (auto) 0.08 K/uL (0.01-0.20); Immature Granulocytes % (auto) 1.4 %; Lymphocytes # (auto) 1.15 K/uL (1.20-3.40); Lymphocytes % (auto) 20.3 %; Mean Corpuscular Hgb Conc 32.7 g/dL (32.0-36.0); Mean Corpuscular Volume 91.6 fL (80.0-100.0); Mean Platelet Volume 11.2 fL (9.4-12.4); Monocytes # (auto) 1.01 K/uL (0.11-0.59); Monocytes % (auto) 17.8 %; Neutrophils # (auto) 3.36 K/uL (1.40-6.50); Neutrophils % (auto) 59.2 %; Platelet Count 125 K/uL (130-400); RDW Coefficient of Variation 14.3 % (11.5-14.5); RDW Standard Deviation 48.2 fL (36.4-46.3); Red Blood Count 4.17 M/uL (4.70-6.10); White Blood Count 5.67 K/ul (4.8-10.8)
[2023-12-04] MEDS: HEPARIN SOD 5,000 UNIT/0.5 ML VIAL SQ SCH ×2 (08:57→21:01)
[2023-12-04] MEDS: LANTUS PER UNIT CHARGE SC SCH (08:57)
[2023-12-04] MEDS: CHOLECALCIFEROL 1,000 UNITS 25 MCG TAB PO SCH (08:57)
[2023-12-04] MEDS: FOLIC ACID 400 MCG TAB PO SCH (08:58)
[2023-12-04] MEDS: PRAVASTATIN SOD 10 MG TAB PO SCH (08:58)
[2023-12-04] MEDS: carvediloL 3.125 MG TAB PO SCH ×2 (08:58→21:02)
[2023-12-04] MEDS: PANTOprazole 40 MG TAB PO SCH (08:59)
[2023-12-04] MEDS: DOCUSATE SODIUM 100 MG CAP PO SCH ×2 (08:59→21:02)
[2023-12-04] MEDS: VALSARTAN/SACUBITRIL 26/24MG TAB PO SCH ×2 (08:59→21:03)
[2023-12-04 09:26] LABS: Calcium 9.7 mg/dl (8.6-10.3); Creatinine Clr Calc Pharmacy 32.8 ml/min; Est GFR (African American) 44.5 ml/min; Est GFR (Non-African American) 38.4 ml/min; Potassium 4.3 mmol/L (3.5-5.1)
--- NOTE | 2023-12-04 16:26 | Urology Progress Note ---
Date of Service December 04, 2023 Assessment & Plan (1) S/P TURP: (2) Urinary tract infection: (3) Squamous cell carcinoma of prostate: Plan: 83 yo/M admitted for sepsis due to pneumonia and UTI. Pt afebrile, hemodynamically stable Interiano catheter removed yesterday Voiding spontaneously Continue to monitor emptying with PVR/Bladder scan Urine culture with coag negative staph, blood cultures negative Treated with cefepime during hospitalization with plan to transition to linezolid to complete antibiotic course Discussed that incontinence can be expected at this stage post resection, but may continue fdc Discussed timed voiding and double voiding Can discuss other options as outpatient if symptoms are ongoing/bothersome after expected healing stage Continue with supportive care, antibiotics and medical management per hospital medicine service Patient's was on the phone during visit, all questions answered Plan to follow-up with urology as scheduled Admission and Anticipated Discharge Date Admission Date: November 29, 2023 Subjective Patient seen and examined at bedside this afternoon He is awake and sitting up in bedside chair Denies pain Catheter removed yesterday He is voiding spontaneously Reports incontinence No dysuria or hematuria Denies nausea, vomiting, fever or chills Review of Systems Constitutional: as per Subjective / HPI Gastrointestinal: as per Subjective / HPI Genitourinary: + as per Subjective / HPI Physical Exam Constitutional: well developed and well nourished; no acute distress Respiratory: normal respiratory effort; no respiratory distress and no labored breathing Gastrointestinal (Abdomen): Inspection/Auscultation: abdomen normal to inspection Musculoskeletal: Head/Neck/Chest: normocephalic Neurologic: moves all extremities and awake Psychiatric: Orientation: alert and oriented x 3 Results & Data Vital Signs (Past 12 Hours) Vital Signs Temp Pulse Pulse Resp BP BP Pulse Ox 12/04/23 15:29 71 12/04/23 11:34 36.5 C 75 18 106/64 99 12/04/23 11:10 12/04/23 08:28 36.7 C 69 16 151/78 H 99 12/04/23 08:17 36.7 C 77 17 108/57 L 94 12/04/23 07:08 70 O2 Del Method O2 Flow Rate 12/04/23 15:29 12/04/23 11:34 Room Air 12/04/23 11:10 Room Air 12/04/23 08:28 Room Air 12/04/23 08:17 Nasal Cannula 2 12/04/23 07:08 PG Care Time/CCT Total # of Minutes Spent Total Time Spent with Patient: Total time spent is greater than 50% in coordination of care (as documented) at patient's floor/unit and/or counseling patient: Coding Level of Care Code 90731 SUB INP/OBS CARE 12/12MIN Diagnoses S/P TURP Z90.79 Urinary tract infection N39.0 Squamous cell carcinoma of prostate C61
--- NOTE | 2023-12-04 18:24 | Hospitalist Progress Note ---
Date of Service December 04, 2023 Assessment & Plan (1) Sepsis: Plan: 2nd to coag neg staph UTI 2nd to right-sided pneumonia resolved blood cx's negative low platelets likely sepsis related count is stable/acceptable (2) Pneumonia: Plan: patchy infiltrates right lung on admission cxr minimal symptoms o2 sats high 90s in room air day #6 of IV cefepime plan 7 days of Rx then stop had right-sided pneumonia in late 2022 aspiration events? speech therapy saw patient in consult - video swallow completed -- no ruel aspiration (3) Urinary tract infection: Plan: 2nd coag neg staph day #6 of IV vanco/Zyvox switch to PO zyvox today hollins removed thus far voiding adequately with reasonable PVRs unfortunately the initial pharmacy check showed that a 1-week course of PO zyvox would be $800 ??? is patient a candidate for goodRx?? (4) S/P CABG x 3: Plan: h/o systolic CHF but improved EF with echo 07/2023 with EF 55-60% follows with Dr Leung - [facility] [place] Cardiology Remains on coreg, Entresto, crestor Was to have EGD on 12/[address] David and plavix was being held for such but now the EGD is re-scheduled for December Thus, resumed plavix No ischemic symptoms at this time (5) Prostate cancer: Plan: Initial dx in 1998 and treated at [facility] in 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 Kirby at [facility] Follows with [facility] [place] Urology - Dr Ibrahima Sandra recent PET-CT without distant mets Viviana Thompson from urology saw Mr Castillo today -- appreciate their assistance they are satisfied with current voiding habits and PVRs (6) S/P TURP: Plan: Mild urinary retention upon ER presentation s/p hollins placement on 11/29 in the ER I agree with urology to allow trial of void - will pull hollins in AM tomorrow and see how he does remains on finasteride but not alpha kelsey uncertain why he is not on alpha blockade - I don't see any discrete allergy history urology records reviewed - note from Dr Sandra from 2021 states the following - "At some point during the patient's major cardiac and subsequent other management issues patient has been taken off of the tamsulosin which he had been on in the past. Patient was told he would not be able to continue tamsulosin. It is difficult to determine exactly what led to that though patient does have a history of a sulfa allergy. Extensively reviewed other options. Discussed other alpha blockers. Due to the severity of the patient's issues as well as the major recent cardiac event discussed utilization of Rapaflo as an option. Will send this prescription over. Patient is currently taking finasteride and has been continuing." I corresponded with Dr Sandra via [place] this am -- apparently Mr Anna had side effects from prior alpha kelsey trials thus will defer for now (7) Stage III pressure ulcer of sacral region: Plan: Wound care consult appreciated Cont dressing changes, etc (8) Controlled type 2 diabetes mellitus with chronic kidney disease: Plan: hba1c 7.5% he is on Trulicity weekly at home remains stable/controlled on lantus-novolog while here resume Trulicity at d/c (9) Generalized weakness: Plan: 2nd to recurrent admissions, recurrent infections, etc. 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/23/22 (all leads are epicardial) last interrogation 09/[address] Leung/Nelson MCGREGOR pacemaker working well (14) H/O: stroke: Plan: noted resumed plavix for secondary prevention (was on hold for EGD that was tentatively scheduled on 12/04 but now moved to December) (15) GERD (gastroesophageal reflux disease): Plan: cont PPI (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: Plan: 10/14/23 - s/p TURP by Dr Sandra appreciate his consultation earlier in the admission 11/20/23 PET-CT without distant mets (17) Thrombocytopenia: Plan: likely 2nd to #1 count bottomed in the 90s, now trending up and remains >100 repeat CBC in am for stability Plan DVT PPx: Heparin 5000 BID passed PT eval updated by phone this evening once again anticipate d/c home tomorrow on 12/05 Admission and Anticipated Discharge Date Admission Date: November 29, 2023 Subjective patient sitting in chair no new complaints eating robustly - 100% of meals +stool yesterday no abd pain still able to void spontaneously PVR after last void was very low (0cc per staff) other PVRs have been higher (100-200cc but nothing higher by report) we discussed d/c home tomorrow tele overnight - pacing Review of Systems Review of Systems: gen - no fevers, feels good, eating well cv - no chest pain pulm - no dyspnea or cough GI - no N/V Physical Exam Physical Exam: gen - sitting in chair comfortably, NAD neck - no JVD mouth - MMM heart - RRR, s1 s2 lungs - CTA b/l; no rales; no wheezes abd - soft NT ND BS+ ext - no edema, pulses 2+ b/l psych - awake, alert, more oriented than previous visits Results & Data Results & Data Vital Signs (Past 12 Hours) Vital Signs Temp Pulse Pulse Resp BP BP Pulse Ox 12/04/23 15:29 71 12/04/23 11:34 36.5 C 75 18 106/64 99 12/04/23 11:10 12/04/23 08:28 36.7 C 69 16 151/78 H 99 12/04/23 08:17 36.7 C 77 17 108/57 L 94 12/04/23 07:08 70 O2 Del Method O2 Flow Rate 12/04/23 15:29 12/04/23 11:34 Room Air 12/04/23 11:10 Room Air 12/04/23 08:28 Room Air 12/04/23 08:17 Nasal Cannula 2 12/04/23 07:08 Laboratory Results Laboratory Results - last 48 hr 12/03/23 12/03/23 12/03/23 08:13 12:26 17:05 WBC RBC Hgb Hct MCV MCH MCHC RDW Std Deviation RDW Coeff of Vinny Plt Count MPV Immature Gran % (Auto) Neut % (Auto) Lymph % (Auto) Weld % (Auto) Eos % (Auto) Baso % (Auto) Neut # (Auto) Lymph # (Auto) Weld # (Auto) Eos # (Auto) Baso # (Auto) Immature Gran # (Auto) Sodium Potassium Chloride Carbon Dioxide Anion Gap BUN Creatinine Est Cr Clr Drug Dosing Est GFR ( Amer) Est GFR (Non-Af Amer) BUN/Creatinine Ratio Glucose POC Glucose 143 H 142 H 93 Calcium 12/03/23 12/04/23 12/04/23 19:57 04:40 08:13 WBC RBC Hgb Hct MCV MCH MCHC RDW Std Deviation RDW Coeff of Vinny Plt Count MPV Immature Gran % (Auto) Neut % (Auto) Lymph % (Auto) Weld % (Auto) Eos % (Auto) Baso % (Auto) Neut # (Auto) Lymph # (Auto) Weld # (Auto) Eos # (Auto) Baso # (Auto) Immature Gran # (Auto) Sodium Potassium Chloride Carbon Dioxide Anion Gap BUN Creatinine 1.77 H Est Cr Clr Drug Dosing 30.6 Est GFR ( Amer) 40.8 Est GFR (Non-Af Amer) 35.2 BUN/Creatinine Ratio Glucose POC Glucose 107 H 150 H Calcium 12/04/23 12/04/23 12/04/23 08:36 12:14 17:08 WBC 5.67 RBC 4.17 L Hgb 12.5 L Hct 38.2 L MCV 91.6 MCH 30.0 MCHC 32.7 RDW Std Deviation 48.2 H RDW Coeff of Vinny 14.3 Plt Count 125 L MPV 11.2 Immature Gran % (Auto) 1.4 Neut % (Auto) 59.2 Lymph % (Auto) 20.3 Weld % (Auto) 17.8 Eos % (Auto) 0.4 Baso % (Auto) 0.9 Neut # (Auto) 3.36 Lymph # (Auto) 1.15 L Weld # (Auto) 1.01 H Eos # (Auto) 0.02 Baso # (Auto) 0.05 Immature Gran # (Auto) 0.08 Sodium 137 Potassium 4.3 Chloride 103 Carbon Dioxide 28 Anion Gap 6 BUN 33 H Creatinine 1.65 H Est Cr Clr Drug Dosing 32.8 Est GFR ( Amer) 44.5 Est GFR (Non-Af Amer) 38.4 BUN/Creatinine Ratio 20.0 Glucose 148 H POC Glucose 150 H 89 Calcium 9.7 PG Care Time/CCT Total # of Minutes Spent Total Time Spent with Patient: Total time spent is greater than 50% in coordination of care (as documented) at patient's floor/unit and/or counseling patient: Coding Level of Care Code 14736 SUB INP/OBS CARE 2/35MIN Diagnoses Sepsis A41.9; R65.21; N17.9 Acute renal failure type: unspecified Sepsis acute organ dysfunction status: with acute organ dysfunction Sepsis type: sepsis due to unspecified organism Severe sepsis acute organ dysfunction type: acute renal failure Severe sepsis shock status: with septic shock Pneumonia J18.9 Urinary tract infection N39.0 S/P CABG x 3 Z95.1 Prostate cancer C61 S/P TURP Z90.79 Stage III pressure ulcer of sacral region L89.153 Controlled type 2 diabetes mellitus with chronic kidney disease E11.22 Generalized weakness R53.1 Chronic diastolic CHF (congestive heart failure) I50.32 Coronary artery disease involving [place] coronary artery of [place] heart without angina pectoris I25.10 Associated angina: without angina Coronary Disease-Associated Artery/Lesion type: [place] artery [place] vs. transplanted heart: [place] heart Hypothyroidism E03.9 Pacemaker Z95.0 H/O: stroke Z86.73 GERD (gastroesophageal reflux disease) K21.9 Squamous cell carcinoma of prostate C61 Thrombocytopenia D69.6 (1) Sepsis Acute renal failure type: unspecified Sepsis acute organ dysfunction status: with acute organ dysfunction Sepsis type: sepsis due to unspecified organism Severe sepsis acute organ dysfunction type: acute renal failure Severe sepsis shock status: with septic shock Qualified Code(s): A41.9 - Sepsis, unspecified organism; R65.21 - Severe sepsis with septic shock; N17.9 - Acute kidney failure, unspecified (11) CAD (coronary artery disease) Associated angina: without angina Coronary Disease-Associated Artery/Lesion type: [place] artery [place] vs. transplanted heart: [place] heart Qualified Code(s): I25.10 - Atherosclerotic heart disease of [place] coronary artery without angina pectoris
[2023-12-04] MEDS: FINASTERIDE 5 MG TAB PO SCH (21:01)
[2023-12-04] MEDS: CLOPIDOGREL BISULFATE 75 MG TAB PO SCH (21:02)
[2023-12-04] MEDS: LINEZOLID 600 MG TAB PO SCH (21:02)
[2023-12-04] MEDS: LATANOPROST 0.005% OP SOLN 2.5 ML BTL OPB SCH (21:03)
[2023-12-05 06:01] LABS: Platelet Count 116 K/uL (130-400)
[2023-12-05 06:17] LABS: Creatinine Clr Calc Pharmacy 28.2 ml/min; Est GFR (Non-African American) 31.9 ml/min
[2023-12-05] MEDS: LEVOTHYROXINE SODIUM 50 MCG TABLET PO SCH (06:28)
[2023-12-05] MEDS: CHOLECALCIFEROL 1,000 UNITS 25 MCG TAB PO SCH (08:34)
[2023-12-05] MEDS: PANTOprazole 40 MG TAB PO SCH (08:34)
[2023-12-05] MEDS: carvediloL 3.125 MG TAB PO SCH (08:35)
[2023-12-05] MEDS: DOCUSATE SODIUM 100 MG CAP PO SCH (08:35)
[2023-12-05] MEDS: HEPARIN SOD 5,000 UNIT/0.5 ML VIAL SQ SCH (08:35)
[2023-12-05] MEDS: POLYETHYLENE (MIRALAX) 17 GM PACK PO SCH (08:35)
[2023-12-05] MEDS: PRAVASTATIN SOD 10 MG TAB PO SCH (08:35)
[2023-12-05] MEDS: LINEZOLID 600 MG TAB PO SCH (08:35)
[2023-12-05] MEDS: VALSARTAN/SACUBITRIL 26/24MG TAB PO SCH (08:35)
[2023-12-05] MEDS: FOLIC ACID 400 MCG TAB PO SCH (08:35)
[2023-12-05] MEDS: LANTUS PER UNIT CHARGE SC SCH (08:46)
[2023-12-05] MEDS: INSULIN ASPART PER UNIT CHARGE SC SCH ×2 (08:47→13:05)
[2023-12-05] MEDS: CEFEPIME 1,000 MG in SYRINGE 0 ML IV SCH (09:57)
[2023-12-05] MEDS: ASCORBIC ACID 500 MG TAB PO SCH (11:29)
--- NOTE | 2023-12-05 13:12 | Discharge Summary ---
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 Denies feeling of retention, but does wear urine briefs and does not feel like his empties his bladder completely. Has frequent intermittent incontinence. Does not have to strain to void. No pain with voiding, no blood No fevers, +chills and night sweats which began 2 days ago. "No serious cough, occasionally us ecough drops but nothing unusual lately." Denies chest pain. "Had some leading to a triple bipass, some pain from that down the left side a while ago but nothing lately or new." Does endorses more shortness of breath in the last 2-3 days. No syncope/no presycnope. No nausea/vmoiting/diarrhea/contipation. "Having good BMs daily, nothing notable lately." No blood/melena Principal Diagnosis 1. sepsis 2nd urinary tract infection - improved 2. urinary retention - improved, s/p removal of hollins 3. right-sided pneumonia - resolved 4. sacral ulcer 5. prostate cancer 6. chronic kidney disease 7. coronary artery disease 8. thrombocytopenia - improving; was likely 2nd to #1 above Discharge Exam gen - sitting in chair comfortably, NAD neck - no JVD mouth - MMM heart - RRR, s1 s2 lungs - CTA b/l; no rales; no wheezes abd - soft NT ND BS+ ext - no edema, pulses 2+ b/l psych - awake, alert Discharge Data Allergies Allergy/AdvReac Type Severity Reaction Status Date / Time gluten Allergy Mild GI symptoms Verified 11/29/23 10:38 Penicillins Allergy Mild Rash Verified 11/29/23 10:38 Sulfa (Sulfonamide Allergy Mild Rash Verified 11/29/23 10:38 Antibiotics) cyclobenzaprine Allergy Unknown Unknown Verified 11/29/23 10:38 oxycodone AdvReac Intermediate Hallucinati Verified 11/29/23 10:38 ons Luoehky-UDE-EwD Reductase AdvReac Intermediate Muscle Verified 11/29/23 10:38 Inhibitor weakness, [Qxuldzq-Gov-Tct Reductase brain fog Inhibitor] tramadol AdvReac Intermediate Hallucinati Verified 11/29/23 10:38 ons fosfomycin AdvReac Mild Dizziness Verified 11/29/23 10:38 Consultations [facility] PT, OT Speech therapy Wound care Ordered Studies Chest X-Ray 11/29/23 07:53 XR chest 1V portable CLINICAL HISTORY: dyspnea/possible sepsis COMPARISON STUDY: Chest radiograph October 03, 2023. PET/CT November 20, 2023. FINDINGS: Patient is mildly rotated. No pneumothorax or pleural effusion. Left subclavian pacer median sternotomy wires are noted. Cardiomediastinal silhouette is stable. There has been interval development of several airspace opacities within the right mid to upper lung. No consolidation within the left lung is present. No evidence for pulmonary edema. IMPRESSION: Interval development of several right lung airspace opacities suggestive of pneumonia. Post treatment radiographs to ensure resolution are recommended. ACT 112: Negative or not required by law. Electronically signed by: Santi Faustin M.D. 11/29/2023 8:21 AM Renal Ultrasound 11/29/23 15:53 ULTRASOUND KIDNEYS AND BLADDER CLINICAL HISTORY: Incomplete bladder emptying. COMPARISON STUDY: Abdominal CT dated 10/03/2023 TECHNIQUE: Real-time, grayscale, and color flow sonography of the kidneys and bladder is performed. Images are reviewed in the transverse and longitudinal planes. FINDINGS: Kidneys: The kidneys are normal in size and echotexture. The right kidney measures 10.7 cm in length and the left kidney measures 10.9 cm in length. There is mild fullness of the left renal pelvis. No hydronephrosis is seen. No shadowing renal calculi are identified. There are numerous bilateral renal cysts. The largest arises from the left upper pole and measures 5.2 cm. There is no sonographic evidence of contour deforming renal mass lesion. No perinephric fluid is identified. Bladder: The bladder is decompressed around a Hollins catheter and is not well evaluated. The wall appears thickened. IMPRESSION: 1. The kidneys are normal in size without hydronephrosis. 2. The bladder is decompressed around the Hollins catheter and appears thick- walled. Correlate with clinical findings and urinalysis. ACT 112: Negative or not required by law. Electronically signed by: Gordy Dominguez M.D. 11/29/2023 10:58 PM Videofluoroscopic Swallow 12/03/23 13:00 FL video swallow HISTORY: Pneumonia. r/o aspiration TECHNIQUE: Video fluoroscopic evaluation of swallowing was performed in the AP and lateral projections by the speech pathology staff. The patient is fed nectar-thick and thin liquid barium, a barium coated wafer, and barium pudding. FLUOROSCOPY TIME: 2 minutes and 7 seconds.. Ka,r: 10.9 mGy COMPARISON STUDY: None. FINDINGS: There are a few episodes of incomplete epiglottic deflection. This likely accounts for the penetration with the thin liquid barium. No aspiration identified during the examination. Moderate vallecular residue was seen with the thicker barium consistencies. IMPRESSION: 1. No aspiration identified. 2. Please see the speech pathologist report for detailed findings and recommendations. ACT 112: Negative or not required by law. Electronically signed by: Jared Brock M.D. 12/03/2023 2:46 PM Hospital Course (1) Sepsis: 2nd to coag neg staph UTI 2nd to right-sided pneumonia resolved blood cx's negative low platelets likely sepsis related (94 at admission) platelet count stable/acceptable at discharge (116 at discharge) (2) Pneumonia: patchy infiltrates right lung on admission cxr minimal symptoms while here o2 sats high 90s in room air throughout the visit s/p 7 days of IV cefepime during the hospitalization had right-sided pneumonia in late 2022 to ensure his recurrent pneumonia was not due to aspiration speech therapy was consulted speech therapy saw patient in consult - video swallow completed -- no ruel aspiration (3) Urinary tract infection: 2nd coag neg staph s/p 7 days of IV vanco/Zyvox during the stay he will complete 7 more days of zyvox 600mg BID after discharge hollins was removed 48+ hours prior to discharge; thus far voiding adequately with reasonable PVRs (4) 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 Stormy Kirby at [facility] Follows with [facility] Urology - Dr Ibrahima Sandra recent PET-CT without distant mets [facility] Urology was consulted while here they advised discontinuation of hollins catheter prior to discharge hollins was removed, and PVRs were acceptable (200cc or less most times) he will need close f/u with Dr Kirby and Dr Sandra post-discharge (6) S/P TURP: TURP - 10/14/23 Patient had mild urinary retention upon ER presentation s/p hollins placement on 11/29/23 in the ER later in the stay the hollins was removed and he passed a voiding trial he was discharged to home without a hollins remains on finasteride but not alpha kelsey - apparently he had side effects from alpha kelsey in the past thus this has not been reattempted we discussed in depth timed voids and double voids to help with urinary retention at home (7) Stage III pressure ulcer of sacral region: Wound care consult appreciated Cont dressing changes (8) Controlled type 2 diabetes mellitus with chronic kidney disease: hba1c 7.5% he is on Trulicity weekly at home (9) Generalized weakness: 2nd to recurrent admissions, recurrent infections, etc. 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 MACHINE-P Bi-V Pacemaker 05/23/22 (all leads are epicardial) last interrogation 09/[address] Leung/Nelson MCGREGOR - [facility] Cardiology pacemaker working well (14) H/O: stroke: cont plavix for secondary prevention (15) GERD (gastroesophageal reflux disease): cont PPI (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: 10/14/23 - s/p TURP by Dr Ibrahima Sandra 11/20/23 - PET-CT without distant mets (17) Thrombocytopenia: likely 2nd to #1 count bottomed in the 90s, now trending up and remains >100 repeat CBC after discharge to ensure normalization Plan passed PT/OT evaluations; cleared for home with his he will have home PT/OT/long-term Health Attestation I certify that this patient is under my care and that I, or a physicians administrative support assistant working with me, had a face to-face encounter that meets the home health [id number] encounter requirements with this patient. The encounter with the patient was in whole, or in part, for the following medical condition, which is the primary reason for home health care (list medical condition): pneumonia, UTI I certify that, based on my findings, the following services are medically necessary home health services: My clinical findings support the need for the above services because: Skilled Nsg Assessment Skilled Nsg Assess Pt Illness, Disease and Sx Monitoring Skilled Nsg to Assess, Perform and Teach Wound Care Further, I certify that my clinical findings support that this patient is homebound (i.e. absences from home require considerable and taxing effort and are for medical reasons or congregational services or infrequently or of short duration when for other reasons) because: Supportive Aid - Walker Transportation Assistance/Unable to Leave Home Unassisted Certification for Home Health Services: Based on the above findings, I certify that this patient is confined to the home and needs intermittent snf care, physical therapy and/or speech therapy or continues to need occupational therapy. The patient is under my care, and I have initiated the establishment of the plan of care. This patient will be followed by a physician who will periodically review the plan of care. Total Time Total Time Spent Total Time Spent (In Minutes): 45 Discharge Plan Discharge Items Patient Disposition: Home - Home Health Services Reason For Visit: WEAKNESS; URINARY RETENTION Discharge Diagnosis: 1. urinary tract infection - improving 2. urinary retention - multiple causes including #1, prostate and bladder problems, etc - improved, hollins catheter now gone 3. right-sided pneumonia - resolved 4. sacral ulcer 5. prostate cancer 6. chronic kidney disease 7. coronary artery disease 8. mildly low platelets - due to #1 - improved/stable Activity: As commented below Activity Comment: gradually increase activities as tolerated over the next week Non-emergency contact: Primary Care Provider, Specialist and Urologist Call non-emergency contact if: you have any medication questions, your symptoms worsen, you have a fever, your wound has increased redness, your wound has increased drainage and your wound pain has increased Follow-up/Referrals: Adan Laird MD [Physician] - 12/12/23 2:30 pm Dick Adams MD [Primary Care Provider] - 12/13/23 10:30 am Ibrahima Sandra DO [Physician] - 01/08/24 10:45 am Diet: Carb Consistent or DM2 and Gluten Free Diet Texture: Easy to Chew Addtl Attending Provider Instructions: Mr Castillo, You were treated for right-sided pneumonia and urinary tract infection during your hospitalization. You received 2 different antibiotics - 1 for the pneumonia, and 1 for the urinary infection. You improved nicely while here with antibiotics and supportive care. Dr Sandra from [facility] saw you in consult. They recommended treatment of the urinary tract infection as well as trying to discontinue the hollins catheter. The catheter was removed on the morning of 12/03/23 and thus far you are voiding adequately. Thus far we have not seen severe urinary retention that would necessitate putting the catheter back in. Dr Sandra and his team will continue to monitor this over time. You were seen by wound care for the small ulceration at the base of your back. This is stable, and you should continue to see the [facility] in [place] as scheduled. Pt/Ot worked with you and felt you were doing well enough to return home with your (rather than attending rehab at a rehab center). Recommendations - 1. antibiotics for your urinary infection - start this TONIGHT, 12/05/23. LINEZOLID 600mg twice daily x 7 days. 2. please practice timed voiding and double voiding. Timed voiding is when you put yourself on a schedule to empty your bladder. Starting from the time you wake up in the morning please plan to go to the bathroom every 3-4 hours. Even if you don't feel you have to urinate please stay on a schedule. Give yourself plenty of time to empty the bladder each void. Double voiding - this is when you urinate, then several minutes later attempt to empty the bladder again. These techniques help keep the bladder as empty as possible and hopefully avoid retention. It may also help with your incontinence. 3. follow-up appointments - see separate section 4. have a blood draw at the time of your hospital follow-up appointment with Dr Adams's office. I will place lab orders for you. Return to [facility] if - * you have fevers over 100 degrees * you have worsening shortness of breath or chest pains * you have severe diarrhea * you have inability to urinate (you are concerned about retention) * any other concerns It was our pleasure to care for you ! Pending Studies at Discharge: No Stand-Alone Forms: My [facility], Smoking Cessation Medications and DC Order Prescriptions: Continued (DME) FreeStyle Lite Strips Strip See Rx Instructions .Route Qty: 300 3RF Rx Instructions: TEST THREE TIMES DAILY. DX: E11.9 ferrous sulfate [iron] 325 mg (65 mg iron) Tablet 325 mg PO Q2D Rx Instructions: Patient takes this with Vitamin C (DME) blood-glucose meter [FreeStyle Lite Meter] Kit See Rx Instructions .Route Qty: 1 0RF Rx Instructions: Test blood sugar three times daily DX:E11.9 levothyroxine [Synthroid] 50 mcg tablet 50 mcg PO QAM Qty: 90 3RF clindamycin HCl 300 mg capsule 600 mg PO DIRECTED PRN (Reason: pretreat dental appt) Qty: 10 0RF Rx Instructions: TAKE 2 CAPSULES 1 HOUR PRIOR TO DENTAL APPOINTMENT (DME) lancets [FreeStyle Lancets] 28 gauge misc See Rx Instructions .Route Qty: 300 3RF Rx Instructions: TEST THREE TIMES DAILY. DX: E11.9 finasteride [Proscar] 5 mg tablet 5 mg PO HS Qty: 90 3RF carvedilol 3.125 mg tablet 3.125 mg PO BID Qty: 180 3RF Rx Instructions: must administer with a meal/food pravastatin 10 mg tablet 10 mg PO QAM Qty: 90 1RF Rx Instructions: This is listed as an allergy, but spouse states that patient is currently taking this medication. folic acid 400 mcg tablet 0.4 mg PO QAM Patient Comments: NOT IN STOCK AT PHARMACY , CURRENTLY OUT OF acetaminophen [Arthritis Pain Relief (acetam)] 650 mg tablet extended release 650 mg PO Q8H PRN (Reason: Pain) latanoprost 0.005 % drops 1 drp OPB HS ondansetron HCl 4 mg tablet 4 mg PO Q8H PRN (Reason: nausea and vomiting) Qty: 30 0RF pantoprazole 20 mg tablet,delayed release (DR/EC) 20 mg PO QAM Patient Comments: qam cholecalciferol (vitamin D3) [Vitamin D3] 50 mcg (2,000 unit) Tablet 50 mcg PO QAM Trulicity 3 mg/0.5 mL pen injector 3 mg SUBCUT WK Hold Instructions: trying 4.5mg Rx Instructions: Usually on Sundays, but injected on Saturday (11/26/23) of this week. ascorbic acid (vitamin C) [Vitamin C] 500 mg Tablet 500 mg PO Q2D Rx Instructions: Patient takes this with Ferrous Sulfate Neuriva Original 100-100 mg Capsule 1 cap PO QAM clopidogrel [Plavix] 75 mg tablet 75 mg PO PM Qty: 1 0RF Patient Comments: on hold until after surgery Rx Instructions: Please contact Gastroenterology to determine when to hold this medication in the future (your endoscopy date has been pushed to later in the December). No Action Entresto 24-26 mg tablet 1 tab PO BID Qty: 180 3RF Trulicity 4.5 mg/0.5 mL pen injector 4.5 mg subcut .QWK Qty: 2 0RF Discharge Orders: Discharge Order (Routine); Ordered 12/05/23 Ordered By: Jarrett Ware Admission Data Admit Date/Time: 11/29/23 10:33 Attending Provider: Jarrett Ware Admit Provider: Rolando Hernnades Primary Care Provider: Dick Adams Other Providers: Elvis Enriquez; Ibrahima Sandra; Evelyn,Home Health Other Interventions: Discharge Summary Assessment (RN) Last Done: 12/05/23 13:19 Coding Level of Care Code 18283 INP/OBS DISCH >30 MIN Diagnoses Sepsis A41.9; R65.21; N17.9 Acute renal failure type: unspecified Sepsis acute organ dysfunction status: with acute organ dysfunction Sepsis type: sepsis due to unspecified organism Severe sepsis acute organ dysfunction type: acute renal failure Severe sepsis shock status: with septic shock Pneumonia J18.9 Urinary tract infection N39.0 S/P CABG x 3 Z95.1 Prostate cancer C61 S/P TURP Z90.79 Stage III pressure ulcer of sacral region L89.153 Controlled type 2 diabetes mellitus with chronic kidney disease E11.22 Generalized weakness R53.1 Chronic diastolic CHF (congestive heart failure) I50.32 Coronary artery disease involving [place] coronary artery of [place] heart without angina pectoris I25.10 Associated angina: without angina Coronary Disease-Associated Artery/Lesion type: [place] artery [place] vs. transplanted heart: [place] heart Hypothyroidism E03.9 Pacemaker Z95.0 H/O: stroke Z86.73 GERD (gastroesophageal reflux disease) K21.9 Squamous cell carcinoma of prostate C61 Thrombocytopenia D69.6
== END 2023-12-05 14:18 | disposition home health service (06) | DRG 871 ==
LOC: ED 07:37 → EDINP 10:33 → SUATTDRO 10:33 → 2W 11:12

== ENCOUNTER 2024-04-30 23:24 | Inpatient (IN) ==
--- NOTE | 2024-05-01 00:04 | Emergency Department Note ---
Impression & Plan Accidental fall, CHI (closed head injury), Acute pain of left hip ED Provider Note NAME: LIZZETH RAPP Jr AGE: 84 SEX: Male INFORMANT: Patient ED PROVIDER(S): Sushil Coon MD CHIEF COMPLAINT: Fall PLAN: Disposition: Admitted Outpatient prescription management: none Referral: none MEDICAL DECISION MAKING: Patient presented because of a ground-level fall. He thought was accidental. He noted pain on the left side and therefore imaging as well as blood work was performed. He underwent CT imaging of the head and neck. X-ray imaging of the left shoulder, chest, and left hip were performed. No traumatic findings on imaging. Pt BNP elevated and peripheral edema present. COncerns for mild CHF. Given weakness and falls, coupled with fluid overload, discussed admission. Patient in agreement. Consultation was made with Dr. Franklin Kilgore of the [facility] service. Patient was evaluated in the ER for further management. Care/management discussed with: ED case manageer Level of care consideration(s): After review of the information above and other included data, I feel the patient requires escalation of care to admission. Triage Nursing notes: reviewed and agree them. Vital Signs: reviewed and remarkable for hypertension Additional History obtained from: none Chronic Medical/Social Conditions affecting care: Plavix use, diabetes Prior/ Outside/ External records reviewed: Prior ED visit records reviewed Differential Diagnosis: Contusion, fracture,Infection, dehydration, metabolic abnormality, hypo/hyperglycemia, electrolyte disturbance, anemia, hypoxia, cardiac sources, intracerebral event, toxicologic, neurologic, as well as other pathologies. Diagnostics, independently interpreted by me: ECG: Twelve-lead ECG reveals a paced rhythm at 79 bpm. Right bundle branch block. Left anterior fascicular block. Cardiac Monitoring: Cardiac monitoring ordered by me: The patient was placed on continuous cardiac monitoring and observed. It revealed a paced rhythm at 77 bpm. Medical decision rules: none Imaging studies: Left hip xr negative for fx. I refer you to the EMR for further details. HPI: 84 year old Male arrives for evaluation of a fall. This occurred this evening and patient thought it was accidental to 2 a pre-existing issue with left foot drop. Patient had a stroke in 2001. He had weakness on the left side. He notes frequent falls. Recent late in the ER for fall and imaging was negative. Patient also was in the ER for nosebleed. No recurrent epistaxis noted. The patient also notes the following associated symptoms, minor headache, under neck pain, left shoulder pain, very mild left-sided rib pain, significant left-sided hip pain. The patient has took no medication for relieving factors. Current pain is rated as 9/10. Patient also notes his legs have been swelling. Pt denies LOC, fevers, chills, diaphoresis, visual changes, chest pain, breathing difficulties, nausea, vomiting, abdominal pain, back pain, melena, hematochezia, urinary symptoms, numbness, lymphadenopathy, rash, or other complaints. . PAST MEDICAL HISTORY: See Below, diabetes, CVA PAST SURGICAL HISTORY: See Below, SOCIAL HISTORY: See Below, retired HOME MEDICATIONS: See Below ALLERGIES: See Below VITALS: See Below PHYSICAL EXAMINATION: GENERAL: Awake, alert, nontoxic-appearing, in no distress HENT: Normocephalic, atraumatic. Oropharynx unremarkable. EYES: Normal conjunctiva. Sclera non-icteric. NECK: Inspection normal. Non-tender. Supple. No step-offs. No nuchal rigidity. FROM. No masses. RESPIRATORY: Clear to auscultation. No wheezes. No rales. Normal respiratory effort. CARDIAC: Normal rate. Normal rhythm. No murmurs. No rubs. Extremities warm and well perfused. Pulses equal. No JVD. GI: Soft, non-distended. No tenderness to palpation. No rebound or guarding. No masses. RECTAL: Deferred. MUSCULOSKELETAL: Right upper and right lower extremities are atraumatic. There is some mild decreased range of motion of the left shoulder however there is no clinical sign of dislocation. Mild shoulder tenderness to palpation. Remainder of left upper extremity is atraumatic. Trace edema of the upper extremities present. There is left hip tenderness to palpation. Left knee abrasion noted. No gross bony deformity. No shortening or external rotation. Chest examination reveals no tenderness. The back is symmetrical on inspection without obvious abnormality. There is no CVA tenderness to palpation. No midline tenderness or step-offs. No joint edema. LOWER EXTREMITIES: Calves are equal size bilaterally and non-tender. 2+ edema. No discoloration. NEURO: Normal sensorium. No sensory deficits noted. Mild left leg weakness present. Speech normal. SKIN: No rash or jaundice noted. PROCEDURES: none CRITICAL CARE: none OBSERVATION NOTE: none Past Med/Surg History Problem List (Updated 05/01/24 @ 04:54 by Franklin Kilgore MD) Acute on chronic diastolic CHF (congestive heart failure) Left foot drop Acute kidney injury superimposed on CKD Acute pain of left hip (Acute) CHI (closed head injury) (Acute) Accidental fall (Acute) Cervical strain (Acute) Acute head trauma (Acute) Fall (Acute) Rotator cuff arthropathy of both shoulders Encounter for removal of nasal packing (Acute) Headache (Acute) Acute anterior epistaxis (Acute) Perianal abscess (Acute) Status post right knee replacement Right leg pain History of excision of lamina of lumbar vertebra for decompression of spinal cord L5-S1 Degenerative spondylolisthesis Lumbar back pain Mild cognitive impairment Pacemaker lead malfunction Incontinence Thrombocytopenia Chronic diastolic CHF (congestive heart failure) Generalized weakness Pneumonia Hyperkalemia Fatigue Right shoulder pain Stage III pressure ulcer of sacral region (Acute) 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 Coagulase-negative staphylococcal infection Urinary tract obstruction Sacral ulcer Encounter for pre-operative examination Bacteremia due to Gram-positive bacteria Troponin level elevated Acute hyperglycemia (Acute) Hypoxia (Acute) Aspiration pneumonia of right upper lobe (Acute) Sepsis (Acute) Diabetes mellitus Cardiomyopathy Nausea and vomiting GERD (gastroesophageal reflux disease) Hypotension Sepsis Urinary tract infection Acute respiratory failure with hypoxia Aspiration pneumonia Current use of proton pump inhibitor Lower urinary tract symptoms (LUTS) Incomplete emptying of bladder Urinary symptom or sign Systolic CHF, chronic PARDO (dyspnea on exertion) Pulsatile tinnitus of both ears R>L Sensorineural hearing loss of both ears Abnormal finding of foot H/O: stroke Hand arthritis Abdominal discomfort REASON FOR UPCOMING PROCEDURE: DISCOMFORT BLADDER OR COLON AREA / CAN'T DIFFERENTIATE WHERE FROM RESOLVED OVER LAST FEW WEEKS Need for cardiac rehabilitation intervention [facility] [place] Dark stools S/P CABG x 3 05/2022>psu gina Atypical chest pain Cardiomyopathy follows Dr. Hollingsworth Orthostatic hypotension Pacemaker Sacral decubitus ulcer CAD (coronary artery disease) CABG x3 (05/2022) Gait instability Biochemically recurrent malignant neoplasm of prostate Mobitz type 1 second degree AV block Carotid artery stenosis Esophageal dysphagia Dysuria Ganglion, finger joint of left hand Right rotator cuff tear Dyslipidemia 1st degree AV block IVCD (intraventricular conduction defect) Status post placement of implantable loop recorder Vitamin D deficiency Stage III chronic kidney disease Spinal stenosis of lumbar region S/P knee replacement Obesity (BMI 30.0-34.9) Neuroendocrine tumor Memory loss Internal hemorrhoids Hypertension Esophageal stricture Enlarged prostate with lower urinary tract symptoms (LUTS) Disc degeneration, lumbar Diabetic peripheral neuropathy Controlled type 2 diabetes mellitus with chronic kidney disease Chronic knee pain Cerebrovascular disease Carotid artery stenosis Benign paroxysmal positional vertigo Benign colonic polyp Asthma Anemia Hemorrhagic cystitis (~03/22/23) Hypercholesteremia TIA (transient ischemic attack) (~2001) Medical History (Updated 05/01/24 @ 04:54 by Franklin Kilgore MD) History of aspiration pneumonia per note 2022 Asthma Rotator cuff tear right>being tx by [facility] (steroid injection) Mild cognitive disorder Kidney disease ? stage>followed by Dr. Hu Acid reflux Hx of basal cell carcinoma Diabetes mellitus, type 2 Depression Neuropathy CHF (congestive heart failure) Cardiomyopathy History of myocardial infarction 2021 Hyperlipidemia Hypertension Sacral ulcer Being treated by [facility] wound care>pressure ulcer "healing" BPH (benign prostatic hyperplasia) Hx: UTI (urinary tract infection) [facility] admission- sepsis 08/2023 Pacemaker Medtronic placed 05/2022>"placed d/t heart failure" Last check 04/10 [facility] Low iron Brain TIA ? TIA vs CVA (2001)- patient reports left sided weakness with occasional "toe drop" r/t 2001 event- reason for Plavix Orthostatic hypotension Arthritis Pancreatic tumor ? tumor/cyst- yearly surveillance imaging GERD (gastroesophageal reflux disease) History of asthma History of prostate cancer Treated with radiation, no surgery Syncope Remote hx years ago, has a loop recorder in place>no recent episodes Hypothyroidism Surgical History History of coronary artery bypass graft 2021>3 vessels at [place] History of prostate surgery radiation tx History of urologic surgery Rezum procedure History of anesthesia reaction Trouble coming out of knee replacement + CABG History of cardiac cath 02/2022- no stents > CABG x3 History of cataract surgery right/left History of esophagogastroduodenoscopy (EGD) H/O colonoscopy with polypectomy [place] teeth removed S/P lumbar laminectomy History of loop recorder History of knee replacement Right History of tonsillectomy and adenoidectomy H/O hernia repair As toddler Hx of cholecystectomy Family History Brother Colon cancer Prostate cancer Grandfather Rectal cancer Unknown Heart disease Cancer Hypertension Mother Diabetes Congestive heart failure Stroke Grandmother (Paternal) Stroke Grandfather (Maternal) Myocardial infarction Other No family history of adverse response to anesthesia Denies family history of Ovarian cancer Breast cancer Social History Smoking Status: Former smoker Tobacco Type: Cigarettes Second Hand Exposure: No; Do You Dip or Chew Tobacco: No; Tobacco Cessation Education Requested by Patient: No Hx Alcohol Use: Yes Alcohol type: wine Hx Substance Use: No Preferred Language: Niuean Communication Ability: Effective Visual Impairment: No Limitations Hearing Ability: Use of Hearing Aid Cna Pct Required: No Beliefs That Will Affect Care: None marital status: Current Living Situation: Spouse current occupational status: retired current occupation: Retired How many Children do You have: 3 Other Information That Helps Us Care for You: Yes (left sided weakness) Feels Safe at Home: Yes Safety Concerns: Feels Safe At This Time Childhood Exposure to Second-Hand Smoke: Yes Diet: gluten free and lactose free caffeine: No Dental Care, Regularly: Yes Physical Activity Frequency: Daily Seatbelt Use: always Sunscreen Use: Yes Assistive Devices: Cane, Glasses and Walker Allergies Allergies Allergy/AdvReac Type Severity Reaction Status Date / Time gluten Allergy Mild GI symptoms Verified 04/29/24 10:29 Penicillins Allergy Mild Rash Verified 04/29/24 10:29 Sulfa (Sulfonamide Allergy Mild Rash Verified 04/29/24 10:29 Antibiotics) cyclobenzaprine Allergy Unknown Unknown Verified 04/29/24 10:29 oxycodone AdvReac Intermediate Hallucinati Verified 04/29/24 10:29 ons [id number]-[id number] Reductase AdvReac Intermediate Muscle Verified 04/29/24 10:29 Inhibitor weakness, [Kspcwtd-Oku-Aua Reductase brain fog Inhibitor] tramadol AdvReac Intermediate Hallucinati Verified 04/29/24 10:29 ons fosfomycin AdvReac Mild Dizziness Verified 04/29/24 10:29 Home Meds Home Medications Medication Instructions Recorded Confirmed folic acid 400 mcg tablet 0.4 mg PO QAM 02/22/22 05/01/24 ferrous sulfate 325 mg (65 mg 325 mg PO Q2D 12/06/22 05/01/24 iron) tablet (iron) acetaminophen 650 mg 650 mg PO Q8H PRN Pain 05/03/23 05/01/24 tablet,extended release (Arthritis Pain Relief (acetaminophen) ER) latanoprost 0.005 % eye drops 1 drp OPB HS 06/21/23 05/01/24 (Xalatan) ascorbic acid (vitamin C) 500 mg 500 mg PO Q2D 11/29/23 05/01/24 tablet (Vitamin C) cholecalciferol (vitamin D3) 50 50 mcg PO QPM 11/29/23 05/01/24 mcg (2,000 unit) tablet (Vitamin D3) escitalopram oxalate 5 mg tablet 5 mg PO QAM 04/08/24 05/01/24 pantoprazole 20 mg tablet,delayed 20 mg PO QAM 05/01/24 05/01/24 release (Protonix) tamsulosin 0.4 mg capsule (Flomax) 0.4 mg PO HS 05/01/24 05/01/24 Previous Rx's Medication Instructions Recorded blood-glucose meter (FreeStyle #1 ea 02/08/23 Lite Meter kit) lancets 28 gauge (FreeStyle #300 ea 08/05/23 Lancets) finasteride 5 mg tablet (Proscar) 5 mg PO HS #90 tabs 10/31/23 pravastatin 10 mg tablet 10 mg PO QAM #90 tabs 12/05/23 sacubitril 24 mg-valsartan 26 mg 1 tab PO BID #180 tabs 12/06/23 tablet (Entresto) clopidogrel 75 mg tablet (Plavix) 75 mg PO PM #90 tabs 02/05/24 blood sugar diagnostic (FreeStyle #100 ea 02/17/24 Lite Strips) glimepiride 2 mg tablet 2 mg PO BID #60 tabs 03/05/24 levothyroxine 50 mcg tablet 50 mcg PO QAM #90 tabs 03/24/24 (Synthroid) ciprofloxacin HCl 500 mg tablet 500 mg PO Q12H #14 tabs 04/20/24 (Cipro) oxybutynin chloride 5 mg tablet 5 mg PO Q12 PRN bladder spasms #10 04/20/24 tabs phenazopyridine 200 mg tablet 200 mg PO Q8H PRN pain #10 tabs 04/20/24 (Pyridium) Results & Data (ED) Vital Signs Vital Signs - 24 hr 04/30/24 23:15 04/30/24 23:31 04/30/24 23:51 Temperature 36.7 C Temperature Source Oral Pulse Rate 77 77 68 Pulse Rate [Right Finger] Respiratory Rate 18 21 Blood Pressure 159/84 H Blood Pressure [Right Arm] Blood Pressure Mean 109 Blood Pressure Mean [Right Arm] Pulse Oximetry 99 97 Oxygen Delivery Method Room Air Room Air Sepsis Recent Fever Within 48 Hours No Sepsis New/Unexplained Change in Mental Status N/A Sepsis Action Taken by Nursing No Action Required 05/01/24 00:34 05/01/24 01:00 05/01/24 02:00 Temperature 36.6 C Temperature Source Oral Pulse Rate Pulse Rate [Right Finger] 63 65 65 Respiratory Rate 21 17 17 Blood Pressure Blood Pressure [Right Arm] 135/74 158/74 H 177/86 H Blood Pressure Mean Blood Pressure Mean [Right Arm] 94 102 116 Pulse Oximetry 97 99 99 Oxygen Delivery Method Room Air Room Air Room Air Sepsis Recent Fever Within 48 Hours Sepsis New/Unexplained Change in Mental Status Sepsis Action Taken by Nursing 05/01/24 03:00 05/01/24 04:00 05/01/24 05:30 Temperature 36.6 C Temperature Source Oral Pulse Rate 66 Pulse Rate [Right Finger] 66 66 Respiratory Rate 20 20 20 Blood Pressure 178/76 H Blood Pressure [Right Arm] 132/104 H 192/86 H Blood Pressure Mean Blood Pressure Mean [Right Arm] 113 121 Pulse Oximetry 99 97 99 Oxygen Delivery Method Room Air Room Air Room Air Sepsis Recent Fever Within 48 Hours Sepsis New/Unexplained Change in Mental Status Sepsis Action Taken by Nursing Laboratory Data 04/30/24 23:38 04/30/24 23:38 Lab Results 04/30/24 04/30/24 05/01/24 Range/Units 23:31 23:38 03:19 WBC 8.21 (4.8-10.8) K/ul RBC 2.97 L (4.70-6.10) M/uL Hgb 8.9 L (14.0-18.0) g/dl Hct 26.5 L (42.0-52.0) % MCV 89.2 (80.0-100.0) fL MCH 30.0 (25.0-34.0) pg MCHC 33.6 (32.0-36.0) g/dL RDW Std Deviation 47.2 H (36.4-46.3) fL RDW Coeff of Vinny 14.6 H (11.5-14.5) % Plt Count 126 L (130-400) K/uL MPV 12.3 (9.4-12.4) fL Immature Gran % (Auto) 2.1 % Neut % (Auto) 75.0 % Lymph % (Auto) 10.0 % [place] % (Auto) 12.7 % Eos % (Auto) 0.1 % Baso % (Auto) 0.1 % Neut # (Auto) 6.16 (1.40-6.50) K/uL Lymph # (Auto) 0.82 L (1.20-3.40) K/uL [place] # (Auto) 1.04 H (0.11-0.59) K/uL Eos # (Auto) 0.01 (0.00-0.50) K/uL Baso # (Auto) 0.01 (0.00-0.20) K/uL Immature Gran # (Auto) 0.17 (0.01-0.20) K/uL Sodium 134 L (136-145) mmol/L Potassium 4.6 (3.5-5.1) mmol/L Chloride 104 (98-107) mmol/L Carbon Dioxide 23 (21-32) mmol/L Anion Gap 7 (3-11) BUN 48 H (6-23) mg/dl Creatinine 2.04 H (0.6-1.4) mg/dl Est Cr Clr Drug Dosing 29.7 ml/min Est GFR ( Amer) 34.2 ml/min Est GFR (Non-Af Amer) 29.5 ml/min BUN/Creatinine Ratio 23.5 H (10-20) Glucose 323 H* (70-99(Fasting)) mg/dl POC Glucose 357 H* (70-99) mg/dl Calcium 8.8 (8.6-10.3) mg/dl Magnesium 1.9 (1.7-2.4) mg/dl Total Bilirubin 0.4 (0.2-1.0) mg/dl AST 14 (13-39) U/L ALT 11 (7-52) U/L Alkaline Phosphatase 65 (34-104) U/L Troponin I High Sens 12.9 (0-20) pg/ml B-Natriuretic Peptide 447 H (0-100) pg/ml Total Protein 6.2 (6.0-8.3) gm/dl Albumin 3.8 (3.4-5.0) gm/dl Globulin 2.4 L (2.5-4.0) gm/dl Albumin/Globulin Ratio 1.6 (0.9-2) TSH 4.300 (0.300-4.500) uIu/ml Urine Color Yellow Urine Appearance Clear (Clear) Urine pH 5.5 (4.5-7.5) Ur Specific [place] 1.017 (1.000-1.030) Urine Protein 2+ H (Negative) Urine Glucose (UA) 2+ H (Negative) Urine Ketones Negative (Negative) Urine Blood 1+ H (Negative) Urine Nitrite Negative (Negative) Urine Bilirubin Negative (Negative) Urine Urobilinogen Negative (Negative) Ur Leukocyte Esterase Negative (Negative) Urine WBC (Auto) 0-5 (0-5) /hpf Urine RBC (Auto) 0-2 (0-2) /hpf U Hyaline Cast (Auto) 0-2 (0-2) /lpf U Epithel Cells (Auto) 0-2 (0-2) /hpf Urine Bacteria (Auto) None Seen (None Seen) 05/01/24 Range/Units 03:25 WBC (4.8-10.8) K/ul RBC (4.70-6.10) M/uL Hgb (14.0-18.0) g/dl Hct (42.0-52.0) % MCV (80.0-100.0) fL MCH (25.0-34.0) pg MCHC (32.0-36.0) g/dL RDW Std Deviation (36.4-46.3) fL RDW Coeff of Vinny (11.5-14.5) % Plt Count (130-400) K/uL MPV (9.4-12.4) fL Immature Gran % (Auto) % Neut % (Auto) % Lymph % (Auto) % [place] % (Auto) % Eos % (Auto) % Baso % (Auto) % Neut # (Auto) (1.40-6.50) K/uL Lymph # (Auto) (1.20-3.40) K/uL [place] # (Auto) (0.11-0.59) K/uL Eos # (Auto) (0.00-0.50) K/uL Baso # (Auto) (0.00-0.20) K/uL Immature Gran # (Auto) (0.01-0.20) K/uL Sodium (136-145) mmol/L Potassium (3.5-5.1) mmol/L Chloride (98-107) mmol/L Carbon Dioxide (21-32) mmol/L Anion Gap (3-11) BUN (6-23) mg/dl Creatinine (0.6-1.4) mg/dl Est Cr Clr Drug Dosing ml/min Est GFR ( Amer) ml/min Est GFR (Non-Af Amer) ml/min BUN/Creatinine Ratio (10-20) Glucose (70-99(Fasting)) mg/dl POC Glucose 116 H (70-99) mg/dl Calcium (8.6-10.3) mg/dl Magnesium (1.7-2.4) mg/dl Total Bilirubin (0.2-1.0) mg/dl AST (13-39) U/L ALT (7-52) U/L Alkaline Phosphatase (34-104) U/L Troponin I High Sens (0-20) pg/ml B-Natriuretic Peptide (0-100) pg/ml Total Protein (6.0-8.3) gm/dl Albumin (3.4-5.0) gm/dl Globulin (2.5-4.0) gm/dl Albumin/Globulin Ratio (0.9-2) TSH (0.300-4.500) uIu/ml Urine Color Urine Appearance (Clear) Urine pH (4.5-7.5) Ur Specific [place] (1.000-1.030) Urine Protein (Negative) Urine Glucose (UA) (Negative) Urine Ketones (Negative) Urine Blood (Negative) Urine Nitrite (Negative) Urine Bilirubin (Negative) Urine Urobilinogen (Negative) Ur Leukocyte Esterase (Negative) Urine WBC (Auto) (0-5) /hpf Urine RBC (Auto) (0-2) /hpf U Hyaline Cast (Auto) (0-2) /lpf U Epithel Cells (Auto) (0-2) /hpf Urine Bacteria (Auto) (None Seen) Administered Medications Acetaminophen (Acetaminophen 325 Mg Tab) 650 mg PO Q4H PRN PRN Reason: Pain or Fever Stop: 05/31/24 05:34 Last Admin: 05/01/24 08:24 Dose: 650 mg Documented By: ALICIA Ascorbic Acid (Ascorbic Acid 500 Mg Tab) 500 mg PO Q2D@0900 [facility] Stop: 05/31/24 08:59 Last Admin: 05/01/24 08:26 Dose: 500 mg Documented By: ALICIA Escitalopram Oxalate (Escitalopram Oxalate 10 Mg Tab) [facility] [place] [place] Stop: 05/31/24 08:59 Last Admin: 05/01/24 08:25 Dose: 5 mg Documented By: ALICIA Ferrous Sulfate (Ferrous Sulfate 325 Mg Tab) 325 mg PO Q2D@0900 [facility] Stop: 05/31/24 08:59 Last Admin: 05/01/24 08:26 Dose: 325 mg Documented By: ALICIA Folic Acid (Folic Acid 400 Mcg Tab) [facility] [place] [place] Stop: 05/31/24 08:59 Last Admin: 05/01/24 08:26 Dose: 400 mcg Documented By: ALICIA Insulin Aspart (Insulin Aspart Per Unit Charge) 0 units SC [facility] Stop: 05/31/24 07:29 Last Admin: 05/01/24 16:54 Dose: 4 units Documented By: ALICIA Co-signed By: Admin: 05/01/24 12:20 Dose: 3 units Documented By: ALICIA Co-signed By: ISMAEL Admin: 05/01/24 08:21 Dose: 3 units Documented By: ALICIA Co-signed By: Levothyroxine Sodium (Levothyroxine Sodium 50 Mcg Tablet) [facility] Stop: 05/31/24 06:59 Last Admin: 05/01/24 08:26 Dose: 50 mcg Documented By: ALICIA Pantoprazole Sodium (Pantoprazole 40 Mg Tab) [facility] [place] [place] Stop: 05/31/24 08:59 Last Admin: 05/01/24 08:25 Dose: 40 mg Documented By: ALICIA Pravastatin Sodium (Pravastatin Sod 10 Mg Tab) [facility] [place] [place] Stop: 05/31/24 08:59 Last Admin: 05/01/24 08:26 Dose: 10 mg Documented By: ALICIA Sacubitril/Valsartan (Valsartan/Sacubitril 26/24mg Tab) 1 tab PO BID [facility] Stop: 05/31/24 08:59 Last Admin: 05/01/24 08:26 Dose: 1 tab Documented By: ALICIA Discontinued Medications Furosemide (Furosemide Inj 20 Mg/2 Ml Vial) 20 mg IV ONE ONE Stop: 05/01/24 02:16 Last Admin: 05/01/24 03:29 Dose: Not Given Documented By: EFRAIN Insulin Human Regular (Novolin-R Insulin Per Unit Charge) 4 units IV NOW STA Stop: 05/01/24 01:08 Last Admin: 05/01/24 01:22 Dose: 4 units Documented By: EFRAIN Co-signed By: JABIER Imaging Data Radiologist's Impression: Chest X-Ray 04/30/24 23:51 SINGLE VIEW CHEST CLINICAL HISTORY: Generalized weakness. FINDINGS: An AP, portable, upright chest radiograph is compared to study dated 01/29/2024 and correlated with chest CT dated 03/26/2024. The examination is degraded by portable technique and apical lordotic positioning. The patient is status post midline sternotomy. A cardiac pacemaker is unchanged in position. The heart is enlarged noting atherosclerotic calcification of the thoracic aorta. The pulmonary vasculature is noncongested. Chronic interstitial thickening is similar to previous. There is mild bibasilar scarring/atelectasis. The lungs and pleural spaces are otherwise clear. No pneumothorax is seen. The skeletal structures are osteopenic. The bony thorax is grossly intact. IMPRESSION: 1. Cardiomegaly and cardiac pacemaker without radiographic evidence of congestive failure. 2. No airspace consolidation or large pleural effusion is identified. ACT 112: Negative or not required by law. Electronically signed by: Gordy Dominguez M.D. 05/01/2024 7:31 AM Hip/Pelvis X-Ray 04/30/24 23:51 XR hip LT 2V w pelvis HISTORY: 84 years-old Male fall, left hip pain acute left hip pain status post fall COMPARISON: CT abdomen and pelvis 03/26/2024 TECHNIQUE: AP view of the pelvis with 2 views of the left hip FINDINGS: Mild osteoarthritis of the hips. There is no acute fracture, dislocation or avascular necrosis. Vascular calcifications are noted. Moderate colonic fecal retention. IMPRESSION: No acute fracture or dislocation. ACT 112: Negative or not required by law. The above report was generated using voice recognition software. It may contain grammatical, syntax or spelling errors. Electronically signed by: Derrick Lang M.D. 05/01/2024 7:24 AM Shoulder X-Ray 05/01/24 00:04 XR shoulder LT min 2V routine HISTORY: 84 years-old Male fall acute left shoulder pain status post fall COMPARISON: 04/11/2024 TECHNIQUE: 3 views of the left shoulder FINDINGS: Median sternotomy. Left-sided pacer. Demineralized appearance of the bones. Moderate glenohumeral and AC joint osteoarthritis. No acute fracture, dislocation or osseous erosion. IMPRESSION: No acute fracture or dislocation. ACT 112: Negative or not required by law. The above report was generated using voice recognition software. It may contain grammatical, syntax or spelling errors. Electronically signed by: Derrick Lang M.D. 05/01/2024 7:04 AM Discharge Plan Visit Data Chief Complaint: Fall Stated Complaint: Fall, L Hip Pain, L Shoulder Pain, Hyperglycemia ED Provider: Sushil Coon Discharge Problem: Accidental fall, CHI (closed head injury), Acute pain of left hip Patient Disposition: Admitted As Inpatient Discharge Instructions Interventions: ED Discharge Assessment Last Done: 05/01/24 05:30
[2024-05-01 00:15] LABS: Basophils # (auto) 0.01 K/uL (0.00-0.20); Basophils % (auto) 0.1 %; Eosinophils # (auto) 0.01 K/uL (0.00-0.50); Eosinophils % (auto) 0.1 %; Hematocrit (blood only) 26.5 % (42.0-52.0); Hemoglobin 8.9 g/dl (14.0-18.0); Immature Granulocytes # (auto) 0.17 K/uL (0.01-0.20); Immature Granulocytes % (auto) 2.1 %; Lymphocytes # (auto) 0.82 K/uL (1.20-3.40); Mean Corpuscular Hgb Conc 33.6 g/dL (32.0-36.0); Mean Corpuscular Volume 89.2 fL (80.0-100.0); Mean Platelet Volume 12.3 fL (9.4-12.4); Monocytes # (auto) 1.04 K/uL (0.11-0.59); Monocytes % (auto) 12.7 %; Neutrophils # (auto) 6.16 K/uL (1.40-6.50); Platelet Count 126 K/uL (130-400); RDW Coefficient of Variation 14.6 % (11.5-14.5); RDW Standard Deviation 47.2 fL (36.4-46.3); Red Blood Count 2.97 M/uL (4.70-6.10); White Blood Count 8.21 K/ul (4.8-10.8)
[2024-05-01 00:56] LABS: Albumin Globulin Ratio 1.6 (0.9-2); Albumin Level 3.8 gm/dl (3.4-5.0); BUN Creatinine Ratio 23.5 (10-20); Bilirubin,Total 0.4 mg/dl (0.2-1.0); Calcium 8.8 mg/dl (8.6-10.3); Creatinine Clr Calc Pharmacy 29.7 ml/min; Est GFR (African American) 34.2 ml/min; Est GFR (Non-African American) 29.5 ml/min; Globulin 2.4 gm/dl (2.5-4.0); Magnesium 1.9 mg/dl (1.7-2.4); Potassium 4.6 mmol/L (3.5-5.1); Thyroid Stimulating Hormone 4.3 uIu/ml (0.300-4.500); Total Protein 6.2 gm/dl (6.0-8.3); Troponin I High Sensitivity 12.9 pg/ml (0-20)
[2024-05-01] MEDS: NovoLIN-R INSULIN PER UNIT CHARGE IV STA (01:22)
--- NOTE | 2024-05-01 01:33 | CT Scan Report ---
Exam(s): CT C SPINE EXAM: CT Cervical Spine Without Intravenous Contrast CLINICAL HISTORY: Reason for exam: fall. TECHNIQUE: Axial computed tomography images of the cervical spine without intravenous contrast. CTDI is 25.63 mGy and DLP is 560.93 mGy-cm. Automated exposure control was utilized for the study. A dose lowering technique was utilized adhering to the principles of ALARA. COMPARISON: No relevant prior studies available. FINDINGS: The vertebral body heights are maintained. The craniocervical junction is intact. The atlanto-dens interval is maintained. The dens is intact. There is no spondylolisthesis. Multilevel cervical spondylosis and degenerative disc disease. Straightening of the cervical lordosis. The unenhanced neck soft tissues are grossly unremarkable. The visualized lung apices are grossly clear. IMPRESSION: No acute fracture or subluxation of the cervical spine. Electronically signed by: Antwon Howard MD 05/01/24 01:31 AM
--- NOTE | 2024-05-01 01:59 | CT Scan Report ---
Exam(s): CT HEAD Without Contrast EXAM: CT Head Without Intravenous Contrast CLINICAL HISTORY: Reason for exam: fall. TECHNIQUE: Axial computed tomography images of the head/brain without intravenous contrast. CTDI is 36.55 mGy and DLP is 624.41 mGy-cm. Automated exposure control was utilized for the study. A dose lowering technique was utilized adhering to the principles of ALARA. COMPARISON: No relevant prior studies available. FINDINGS: No acute intracranial hemorrhage. No midline shift or mass effect. The territorial burgess-white matter differentiation is maintained throughout. Age-related cerebral volume loss. Periventricular and subcortical white matter hypoattenuation, consistent with chronic microangiopathy. The visualized orbits appear grossly unremarkable. The calvarium is intact. The visualized paranasal sinuses and mastoid air cells are grossly clear. IMPRESSION: No acute intracranial hemorrhage, midline shift, or mass effect. Electronically signed by: Antwon Howard MD 05/01/24 01:58 AM
--- NOTE | 2024-05-01 02:06 | History & Physical Report ---
Date of Service May 01, 2024 Assessment & Plan (1) Accidental fall: (2) Left-sided weakness: (3) Left foot drop: (4) Prostate cancer: (5) Acute kidney injury superimposed on CKD: (6) Mild cognitive impairment: (7) Acute on chronic diastolic CHF (congestive heart failure): (8) Incomplete emptying of bladder: Plan Accidental fall/increasing frequency of falls/left foot drop and left-sided weakness residual of previous CVA- Patient had a fall on 04/29 and earlier this evening, prompting family to be concerned about progressive weakness and potential injury CT scan hide negative Falls appear to be due to progressive weakness, manifesting as falls secondary to worsening left foot drop when he is weak Consult PT/OT He has been to [facility] physical therapy in the past Acute on chronic diastolic CHF- Echocardiogram on 04/24/2024 shows EF 60-65%, mild aortic stenosis and mitral stenosis, and moderate mitral regurgitation Patient with lower extremity edema and dyspnea on exertion BNP 447 Lasix 20 mg IV, and follow response The patient will be admitted to telemetry for serial cardiac enzymes, serial EKG's, cardiac rhythm monitoring Continue clopidogrel Temporarily hold Entresto due to JORGE on CKD Prostate cancer/urinary retention- Patient had recent procedure performed, and had Interiano catheter removed in office yesterday morning. He says he was able to urinate after the procedure, however, he is unable to urinate in the emergency department and presently is 395 mL in his bladder Will discuss with patient straight cathing versus Interiano catheter placement Continue tamsulosin and finasteride If persistent, consult urology Diabetes mellitus- Glucose 323 on admission Hold glimepiride Patient was given 4 units of regular insulin IV by the ED, with follow-up Accu- Chek ordered Placed on Accu-Cheks with NovoLog SSI History of Present Illness Chief Complaint: The patient presents to the emergency department after a mechanical fall in his home, as he was walking to the kitchen to get a drink of water, and due to residual weakness of his left lower extremity from a previous stroke, his left foot dropped and he fell. He reports a fall on 04/29/2024, going down steps in his basement, when he was about 1 step up from the base, fell on his face, and was seen in the emergency department with a normal workup. His family is concerned as he appears to be more generally weak. He has no sick contacts and no recent extended travel. Primary Care Provider: Dick Adams MD The patient is an 84-year-old male with a past medical history including residual left sided weakness post previous CVA, bilateral rotator cuff arthropathy, perianal abscess and left buttock pressure ulcer, mild cognitive impairment, thrombocytopenia, chronic diastolic CHF, diabetes mellitus, cardiomyopathy, GERD, UTI, CAD, IVCD, esophageal stricture, cerebrovascular disease and prostate cancer. He is status post urologic procedure, and had Interiano catheter removed yesterday morning, and noted bladder retention of 395 mL while in the ED this evening. He is otherwise brought to the emergency department by family, due to concerns regarding worsening generalized weakness, and his second fall and now in the past few days. He reports having gone to [facility] for physical therapy in the past Allergies Allergy/AdvReac Type Severity Reaction Status Date / Time gluten Allergy Mild GI symptoms Verified 04/29/24 10:29 Penicillins Allergy Mild Rash Verified 04/29/24 10:29 Sulfa (Sulfonamide Allergy Mild Rash Verified 04/29/24 10:29 Antibiotics) cyclobenzaprine Allergy Unknown Unknown Verified 04/29/24 10:29 oxycodone AdvReac Intermediate Hallucinati Verified 04/29/24 10:29 ons Zjznlxn-WFI-ExC Reductase AdvReac Intermediate Muscle Verified 04/29/24 10:29 Inhibitor weakness, [Gbrnovc-Nby-Gzb Reductase brain fog Inhibitor] tramadol AdvReac Intermediate Hallucinati Verified 04/29/24 10:29 ons fosfomycin AdvReac Mild Dizziness Verified 04/29/24 10:29 Home Medications Medication Instructions Recorded Confirmed Type folic acid 400 mcg tablet 0.4 mg PO QAM 02/22/22 05/01/24 History ferrous sulfate 325 mg (65 mg 325 mg PO Q2D 12/06/22 05/01/24 History iron) tablet (iron) blood-glucose meter (FreeStyle #1 ea 02/08/23 05/01/24 Rx Lite Meter kit) acetaminophen 650 mg 650 mg PO Q8H PRN Pain 05/03/23 05/01/24 History tablet,extended release (Arthritis Pain Relief (acetaminophen) ER) latanoprost 0.005 % eye drops 1 drp OPB HS 06/21/23 05/01/24 History (Xalatan) lancets 28 gauge (FreeStyle #300 ea 08/05/23 05/01/24 Rx Lancets) finasteride 5 mg tablet (Proscar) 5 mg PO HS #90 tabs 10/31/23 05/01/24 Rx ascorbic acid (vitamin C) 500 mg 500 mg PO Q2D 11/29/23 05/01/24 History tablet (Vitamin C) cholecalciferol (vitamin D3) 50 50 mcg PO QPM 11/29/23 05/01/24 History mcg (2,000 unit) tablet (Vitamin D3) pravastatin 10 mg tablet 10 mg PO QAM #90 tabs 12/05/23 05/01/24 Rx sacubitril 24 mg-valsartan 26 mg 1 tab PO BID #180 tabs 12/06/23 05/01/24 Rx tablet (Entresto) clopidogrel 75 mg tablet (Plavix) 75 mg PO PM #90 tabs 02/05/24 05/01/24 Rx blood sugar diagnostic (FreeStyle #100 ea 02/17/24 05/01/24 Rx Lite Strips) glimepiride 2 mg tablet 2 mg PO BID #60 tabs 03/05/24 05/01/24 Rx levothyroxine 50 mcg tablet 50 mcg PO QAM #90 tabs 03/24/24 05/01/24 Rx (Synthroid) escitalopram oxalate 5 mg tablet 5 mg PO QAM 04/08/24 05/01/24 History ciprofloxacin HCl 500 mg tablet 500 mg PO Q12H #14 tabs 04/20/24 05/01/24 Rx (Cipro) oxybutynin chloride 5 mg tablet 5 mg PO Q12 PRN bladder spasms #10 04/20/24 05/01/24 Rx tabs phenazopyridine 200 mg tablet 200 mg PO Q8H PRN pain #10 tabs 04/20/24 05/01/24 Rx (Pyridium) pantoprazole 20 mg tablet,delayed 20 mg PO QAM 05/01/24 05/01/24 History release (Protonix) tamsulosin 0.4 mg capsule (Flomax) 0.4 mg PO HS 05/01/24 05/01/24 History Past Med/Surg History Problem List (Updated 05/01/24 @ 04:54 by Franklin Kilgore MD) Acute on chronic diastolic CHF (congestive heart failure) Left foot drop Acute kidney injury superimposed on CKD Acute pain of left hip (Acute) CHI (closed head injury) (Acute) Accidental fall (Acute) Cervical strain (Acute) Acute head trauma (Acute) Fall (Acute) Rotator cuff arthropathy of both shoulders Encounter for removal of nasal packing (Acute) Headache (Acute) Acute anterior epistaxis (Acute) Perianal abscess (Acute) Status post right knee replacement Right leg pain History of excision of lamina of lumbar vertebra for decompression of spinal cord L5-S1 Degenerative spondylolisthesis Lumbar back pain Mild cognitive impairment Pacemaker lead malfunction Incontinence Thrombocytopenia Chronic diastolic CHF (congestive heart failure) Generalized weakness Pneumonia Hyperkalemia Fatigue Right shoulder pain Stage III pressure ulcer of sacral region (Acute) 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 Coagulase-negative staphylococcal infection Urinary tract obstruction Sacral ulcer Encounter for pre-operative examination Bacteremia due to Gram-positive bacteria Troponin level elevated Acute hyperglycemia (Acute) Hypoxia (Acute) Aspiration pneumonia of right upper lobe (Acute) Sepsis (Acute) Diabetes mellitus Cardiomyopathy Nausea and vomiting GERD (gastroesophageal reflux disease) Hypotension Sepsis Urinary tract infection Acute respiratory failure with hypoxia Aspiration pneumonia Current use of proton pump inhibitor Lower urinary tract symptoms (LUTS) Incomplete emptying of bladder Urinary symptom or sign Systolic CHF, chronic PARDO (dyspnea on exertion) Pulsatile tinnitus of both ears R>L Sensorineural hearing loss of both ears Abnormal finding of foot H/O: stroke Hand arthritis Abdominal discomfort REASON FOR UPCOMING PROCEDURE: DISCOMFORT BLADDER OR COLON AREA / CAN'T DIFFERENTIATE WHERE FROM RESOLVED OVER LAST FEW WEEKS Need for cardiac rehabilitation intervention [facility] Dark stools S/P CABG x 3 05/2022>psu gina Atypical chest pain Cardiomyopathy follows Dr. Hollingsworth Orthostatic hypotension Pacemaker Sacral decubitus ulcer CAD (coronary artery disease) CABG x3 (05/2022) Gait instability Biochemically recurrent malignant neoplasm of prostate Mobitz type 1 second degree AV block Carotid artery stenosis Esophageal dysphagia Dysuria Ganglion, finger joint of left hand Right rotator cuff tear Dyslipidemia 1st degree AV block IVCD (intraventricular conduction defect) Status post placement of implantable loop recorder Vitamin D deficiency Stage III chronic kidney disease Spinal stenosis of lumbar region S/P knee replacement Obesity (BMI 30.0-34.9) Neuroendocrine tumor Memory loss Internal hemorrhoids Hypertension Esophageal stricture Enlarged prostate with lower urinary tract symptoms (LUTS) Disc degeneration, lumbar Diabetic peripheral neuropathy Controlled type 2 diabetes mellitus with chronic kidney disease Chronic knee pain Cerebrovascular disease Carotid artery stenosis Benign paroxysmal positional vertigo Benign colonic polyp Asthma Anemia Hemorrhagic cystitis (~03/22/23) Hypercholesteremia TIA (transient ischemic attack) (~2001) Medical History (Updated 05/01/24 @ 04:54 by Franklin Kilgore MD) History of aspiration pneumonia per note 2022 Asthma Rotator cuff tear right>being tx by [facility] (steroid injection) Mild cognitive disorder Kidney disease ? stage>followed by Dr. Hu Acid reflux Hx of basal cell carcinoma Diabetes mellitus, type 2 Depression Neuropathy CHF (congestive heart failure) Cardiomyopathy History of myocardial infarction 2021 Hyperlipidemia Hypertension Sacral ulcer Being treated by [facility] wound care>pressure ulcer "healing" BPH (benign prostatic hyperplasia) Hx: UTI (urinary tract infection) [facility] admission- sepsis 08/2023 Pacemaker Medtronic placed 05/2022>"placed d/t heart failure" Last check 04/10 JUMA/[facility] Low iron Brain TIA ? TIA vs CVA (2001)- patient reports left sided weakness with occasional "toe drop" r/t 2001 event- reason for Plavix Orthostatic hypotension Arthritis Pancreatic tumor ? tumor/cyst- yearly surveillance imaging GERD (gastroesophageal reflux disease) History of asthma History of prostate cancer Treated with radiation, no surgery Syncope Remote hx years ago, has a loop recorder in place>no recent episodes Hypothyroidism Surgical History History of coronary artery bypass graft 2021>3 vessels at [place] History of prostate surgery radiation tx History of urologic surgery Rezum procedure History of anesthesia reaction Trouble coming out of knee replacement + CABG History of cardiac cath 02/2022- no stents > CABG x3 History of cataract surgery right/left History of esophagogastroduodenoscopy (EGD) H/O colonoscopy with polypectomy [place] teeth removed S/P lumbar laminectomy History of loop recorder History of knee replacement Right History of tonsillectomy and adenoidectomy H/O hernia repair As toddler Hx of cholecystectomy Family History Brother Colon cancer Prostate cancer Grandfather Rectal cancer Unknown Heart disease Cancer Hypertension Mother Diabetes Congestive heart failure Stroke Grandmother (Paternal) Stroke Grandfather (Maternal) Myocardial infarction Other No family history of adverse response to anesthesia Denies family history of Ovarian cancer Breast cancer Social History Smoking Status: Never smoker Tobacco Type: Pipe Second Hand Exposure: No; Do You Dip or Chew Tobacco: No; Hx Alcohol Use: No Hx Substance Use: No Preferred Language: Welsh Communication Ability: Effective Visual Impairment: No Limitations Hearing Ability: Use of Hearing Aid Rn Documentation Specialist Required: No Beliefs That Will Affect Care: None marital status: Current Living Situation: Spouse current occupational status: retired current occupation: Retired How many Children do You have: 3 Feels Safe at Home: Yes Childhood Exposure to Second-Hand Smoke: Yes Diet: gluten free and lactose free caffeine: No Dental Care, Regularly: Yes Physical Activity Frequency: Daily Seatbelt Use: always Sunscreen Use: Yes Assistive Devices: Cane and Walker Review of Systems Review of Systems: Review of systems is somewhat limited due to patient's underlying mild cognitive impairment, and information is provided by patient, and family Physical Exam Physical Exam: The patient is awake, able to answer questions, well developed and well nourished, normocephalic and atraumatic, lying in bed and in no acute distress. HEENT--PERRL, EOMI, mucous membranes and oropharynx dry. Neck--supple. No JVD. No bruits. Thyroid normal, trachea midline, no adenopathy. Heart--normal S1 and S2. Systolic murmurs. No rubs or gallops. Lungs--clear bilaterally, no respiratory distress, no accessory muscle use. Abdomen--normal bowel sounds and soft. Nontender. Nondistended, no hernias or masses, no organomegaly. Extremities--1+ bilateral pretibial pitting edema Dermatologic--normal skin turgor, normal color, no abnormal lymph nodes, no rash. Neurologic--cranial nerves II through XII grossly intact. Rheumatologic--normal range of motion. Psychiatric--normal affect. Results & Data Results & Data Vital Signs (Past 12 Hours) Vital Signs Temp Pulse Pulse Resp BP BP Pulse Ox 05/01/24 00:34 36.6 C 63 21 135/74 97 04/30/24 23:51 68 21 97 04/30/24 23:31 77 04/30/24 23:15 36.7 C 77 18 159/84 H 99 O2 Del Method 05/01/24 00:34 Room Air 04/30/24 23:51 Room Air 04/30/24 23:31 04/30/24 23:15 Room Air Laboratory Results Laboratory Results WBC 8.21 K/ul (4.8-10.8) 04/30/24 23:38 RBC 2.97 M/uL (4.70-6.10) L 04/30/24 23:38 Hgb 8.9 g/dl (14.0-18.0) L 04/30/24 23:38 Hct 26.5 % (42.0-52.0) L 04/30/24 23:38 MCV 89.2 fL (80.0-100.0) 04/30/24 23:38 MCH 30.0 pg (25.0-34.0) 04/30/24 23:38 MCHC 33.6 g/dL (32.0-36.0) 04/30/24 23:38 RDW Std Deviation 47.2 fL (36.4-46.3) H 04/30/24 23:38 RDW Coeff of Vinny 14.6 % (11.5-14.5) H 04/30/24 23:38 Plt Count 126 K/uL (130-400) L 04/30/24 23:38 MPV 12.3 fL (9.4-12.4) 04/30/24 23:38 Immature Gran % (Auto) 2.1 % 04/30/24 23:38 Neut % (Auto) 75.0 % 04/30/24 23:38 Lymph % (Auto) 10.0 % 04/30/24 23:38 [place] % (Auto) 12.7 % 04/30/24 23:38 Eos % (Auto) 0.1 % 04/30/24 23:38 Baso % (Auto) 0.1 % 04/30/24 23:38 Neut # (Auto) 6.16 K/uL (1.40-6.50) 04/30/24 23:38 Lymph # (Auto) 0.82 K/uL (1.20-3.40) L 04/30/24 23:38 [place] # (Auto) 1.04 K/uL (0.11-0.59) H 04/30/24 23:38 Eos # (Auto) 0.01 K/uL (0.00-0.50) 04/30/24 23:38 Baso # (Auto) 0.01 K/uL (0.00-0.20) 04/30/24 23:38 Immature Gran # (Auto) 0.17 K/uL (0.01-0.20) 04/30/24 23:38 Sodium 134 mmol/L (136-145) L 04/30/24 23:38 Potassium 4.6 mmol/L (3.5-5.1) 04/30/24 23:38 Chloride 104 mmol/L (98-107) 04/30/24 23:38 Carbon Dioxide 23 mmol/L (21-32) 04/30/24 23:38 Anion Gap 7 (3-11) 04/30/24 23:38 BUN 48 mg/dl (6-23) H 04/30/24 23:38 Creatinine 2.04 mg/dl (0.6-1.4) H 04/30/24 23:38 Est Cr Clr Drug Dosing 29.7 ml/min 04/30/24 23:38 Est GFR ( Amer) 34.2 ml/min 04/30/24 23:38 Est GFR (Non-Af Amer) 29.5 ml/min 04/30/24 23:38 BUN/Creatinine Ratio 23.5 (10-20) H 04/30/24 23:38 Glucose 323 mg/dl (70-99(Fasting)) H* 04/30/24 23:38 POC Glucose 357 mg/dl (70-99) H* 04/30/24 23:31 Calcium 8.8 mg/dl (8.6-10.3) 04/30/24 23:38 Magnesium 1.9 mg/dl (1.7-2.4) 04/30/24 23:38 Total Bilirubin 0.4 mg/dl (0.2-1.0) 04/30/24 23:38 AST 14 U/L (13-39) 04/30/24 23:38 ALT 11 U/L (7-52) 04/30/24 23:38 Alkaline Phosphatase 65 U/L (34-104) 04/30/24 23:38 Troponin I High Sens 12.9 pg/ml (0-20) 04/30/24 23:38 B-Natriuretic Peptide 447 pg/ml (0-100) H 04/30/24 23:38 Total Protein 6.2 gm/dl (6.0-8.3) 04/30/24 23:38 Albumin 3.8 gm/dl (3.4-5.0) 04/30/24 23:38 Globulin 2.4 gm/dl (2.5-4.0) L 04/30/24 23:38 Albumin/Globulin Ratio 1.6 (0.9-2) 04/30/24 23:38 TSH 4.300 uIu/ml (0.300-4.500) 04/30/24 23:38 Urine Color Yellow 05/01/24 03:19 Urine Appearance Clear (Clear) 05/01/24 03:19 Urine pH 5.5 (4.5-7.5) 05/01/24 03:19 Ur Specific [place] 1.017 (1.000-1.030) 05/01/24 03:19 Urine Protein 2+ (Negative) H 05/01/24 03:19 Urine Glucose (UA) 2+ (Negative) H 05/01/24 03:19 Urine Ketones Negative (Negative) 05/01/24 03:19 Urine Blood 1+ (Negative) H 05/01/24 03:19 Urine Nitrite Negative (Negative) 05/01/24 03:19 Urine Bilirubin Negative (Negative) 05/01/24 03:19 Urine Urobilinogen Negative (Negative) 05/01/24 03:19 Ur Leukocyte Esterase Negative (Negative) 05/01/24 03:19 Urine WBC (Auto) 0-5 /hpf (0-5) 05/01/24 03:19 Urine RBC (Auto) 0-2 /hpf (0-2) 05/01/24 03:19 U Hyaline Cast (Auto) 0-2 /lpf (0-2) 05/01/24 03:19 U Epithel Cells (Auto) 0-2 /hpf (0-2) 05/01/24 03:19 Urine Bacteria (Auto) None Seen (None Seen) 05/01/24 03:[address] 04/30/24 23:51 Exam(s): CT C SPINE EXAM: CT Cervical Spine Without Intravenous Contrast CLINICAL HISTORY: Reason for exam: fall. TECHNIQUE: Axial computed tomography images of the cervical spine without intravenous contrast. CTDI is 25.63 mGy and DLP is 560.93 mGy-cm. Automated exposure control was utilized for the study. A dose lowering technique was utilized adhering to the principles of ALARA. COMPARISON: No relevant prior studies available. FINDINGS: The vertebral body heights are maintained. The craniocervical junction is intact. The atlanto-dens interval is maintained. The dens is intact. There is no spondylolisthesis. Multilevel cervical spondylosis and degenerative disc disease. Straightening of the cervical lordosis. The unenhanced neck soft tissues are grossly unremarkable. The visualized lung apices are grossly clear. IMPRESSION: No acute fracture or subluxation of the cervical spine. Electronically signed by: Antwon Howard MD 05/01/24 01:[address] 04/30/24 23:51 Exam(s): CT HEAD Without Contrast EXAM: CT Head Without Intravenous Contrast CLINICAL HISTORY: Reason for exam: fall. TECHNIQUE: Axial computed tomography images of the head/brain without intravenous contrast. CTDI is 36.55 mGy and DLP is 624.41 mGy-cm. Automated exposure control was utilized for the study. A dose lowering technique was utilized adhering to the principles of ALARA. COMPARISON: No relevant prior studies available. FINDINGS: No acute intracranial hemorrhage. No midline shift or mass effect. The territorial burgess-white matter differentiation is maintained throughout. Age-related cerebral volume loss. Periventricular and subcortical white matter hypoattenuation, consistent with chronic microangiopathy. The visualized orbits appear grossly unremarkable. The calvarium is intact. The visualized paranasal sinuses and mastoid air cells are grossly clear. IMPRESSION: No acute intracranial hemorrhage, midline shift, or mass effect. Electronically signed by: Antwon Howard MD 05/01/24 01:58 AM Code Status & VTE Plan Code Status Full code VTE Prophylaxis Plan VTE Prophylaxis will be ordered: Yes PG Care Time/CCT Total # of Minutes Spent Total Time Spent with Patient: Total time spent is greater than 50% in coordination of care (as documented) at patient's floor/unit and/or counseling patient: Coding Level of Care Code 93212 INT INP/OBS CARE 3/75MIN Diagnoses Accidental fall W19.XXXA Left-sided weakness R53.1 Left foot drop M21.372 Prostate cancer C61 Acute kidney injury superimposed on CKD N17.9; N18.9 Mild cognitive impairment G31.84 Acute on chronic diastolic CHF (congestive heart failure) I50.33 Incomplete emptying of bladder R33.9
[2024-05-01] MEDS: FUROSEMIDE INJ 20 MG/2 ML VIAL IV ONE (03:29)
[2024-05-01 03:33] LABS: Appearance Urine Clear (Clear); Bacteria Urine Automated None Seen (None Seen); Bilirubin Urine Negative (Negative); Blood Urine 1+ (Negative); Cast Urine Automated 0-2 /lpf (0-2); Color Urine Yellow; Epithelial Cell Urine Auto 0-2 /hpf (0-2); Glucose Urine UA 2+ (Negative); Ketones Urine Negative (Negative); Leukocyte Esterase Urine Negative (Negative); Nitrite Urine Negative (Negative); Protein Urine 2+ (Negative); RBC Urine Automated 0-2 /hpf (0-2); Specific Gravity Urine 1.017 (1.000-1.030); Urobilinogen Urine Negative (Negative); WBC Urine Automated 0-5 /hpf (0-5); pH Urine 5.5 (4.5-7.5)
[2024-05-01] MEDS ORDERED: DEXTROSE 50% 50 ML SYRINGE IV PRN (05:35)
[2024-05-01] MEDS ORDERED: GLUCOSE 40% GEL 15 GM TUBE PO PRN (05:35)
[2024-05-01] MEDS ORDERED: GLUCOSE 10 TAB/TUBE PO PRN (05:35)
[2024-05-01] MEDS ORDERED: GLUCAGON FOR INJ 1 MG VIAL SQ PRN (05:35)
[2024-05-01] MEDS ORDERED: CARBOHYDRATES FOR HYPOGLYCEMIA PO PRN (05:35)
[2024-05-01] MEDS ORDERED: ONDANSETRON INJ 2 MG/ML 2 ML VIAL IV PRN (05:35)
[2024-05-01] MEDS ORDERED: oxyBUTYnin chloride 5 MG TAB PO PRN (06:32)
[2024-05-01] MEDS ORDERED: PHENAZOPYRIDINE HCL 200 MG TAB PO PRN (06:32)
--- NOTE | 2024-05-01 06:45 | Hospitalist Progress Note ---
Date of Service May 01, 2024 Assessment & Plan (1) Acute on chronic diastolic CHF (congestive heart failure): (2) Accidental fall: (3) Left foot drop: (4) Incontinence: (5) Generalized weakness: (6) Mild cognitive impairment: (7) S/P TURP: (8) Diabetes mellitus: (9) Incomplete emptying of bladder: Plan (1) Accidental fall: (2) Left-sided weakness: (3) Left foot drop: (4) Prostate cancer: (5) Acute kidney injury superimposed on CKD: (6) Mild cognitive impairment: (7) Acute on chronic diastolic CHF (congestive heart failure): (8) Incomplete emptying of bladder: Plan 1) Falls/weakness/left foot drop - Accidental fall/increasing frequency of falls/left foot drop and left-sided weakness residual of previous CVA from patient's Hx - Patient had a fall on 04/29 and earlier this evening, prompting family to be concerned about progressive weakness and potential injury CT-head: negative for any acute intracranial hemorrhage, midline shift, or mass effect left shoulder XR and left hip XR both negative for fracture or dislocation Falls appear to be due to progressive weakness, manifesting as falls secondary to worsening left foot drop when he is weak - dorsiflexion and plantar flexion normal, +5/5 strength, bilaterally - PT/OT consulted - He has been to [facility] physical therapy in the past 2) Acute on chronic diastolic CHF Echocardiogram on 04/24/2024 shows EF 60-65%, mild aortic stenosis and mitral sten osis, and moderate mitral regurgitation Patient with lower extremity edema and dyspnea on exertion BNP 447 (baseline BNP unknown) Lasix 20 mg IV, and follow response, discontinued Patient admitted to telemetry for serial cardiac enzymes: HSTrop, 12.9 EKG's: Sinus rhythm w/ 1st degree AV block (w/ bifascicular heart block) cardiac rhythm monitoring Continue clopidogrel, 75 mg, PO, QAM; Temporarily hold Entresto due to JORGE on CKD, but restarted on 05/01/24 AM 3) Hx of prostate cancer (SCC)--S/P TURP/urinary retention/Hx of urethral obstruction/JORGE/Urinary incontinence Patient had recent procedure performed, 04/20/24, and had Interiano catheter removed in office morning of 04/29/24. - Urinary incontinence, Dx'ed Dec 2023 - Able to urinate after procedure, but unable to urinate in the ED and presently w/ 395 mL in his bladder - Patient w/ condom catheter on today, incontinent/dripping when removed, but with only 85 mL on bladder scan at 3:15 pm --> seems more consistent with an urge incontinence due to loss of internal and/or external sphincter function - Phenazopyridine (for urinary tract pain) and oxybutynin, PRN Continue tamsulosin and finasteride If persistent, will consult urology - Cr, 2.04 (baseline ~1.55-1.65) 4) Type 2 Diabetes mellitus - Glucose 323 on admission; Hold glimepiride Patient was given 4 units of regular insulin IV by the ED, with follow-up Accu- Chek ordered Placed on Accu-Cheks with NovoLog SSI Goal BSG range: 120 -160 mg/dL BSG's ACHS if eating, q6h if NPO Correction Factor: 20 mg/dL Carb Ratio: 10 g/U 5) Hypothyroidism - levothyroxine, 50 ug, PO, daily Code Status: Full Code Disposition: PCU-Tele DVT Prophylaxis: SCD ordered FENGI: Heart healthy/[id number] Consistent Admission and Anticipated Discharge Date Admission Date: May 01, 2024 Supervising Physician Co-Signing Physician Notes I personally examined the patient and verified giles points of history and exam, discussed case, and agree with decision making and plan documented by Dr. Nunez. Patient appears comfortably confused, lungs clear b/l to auscultation, regular rate and rhythm, no acute distress. Awaiting PT rec for concern of repeated falls. Subjective Chief Complaint: The patient presents to the emergency department after a mechanical fall in his home, as he was walking to the kitchen to get a drink of water, and due to residual weakness of his left lower extremity from a previous stroke, his left foot dropped and he fell. He reports a fall on 04/29/2024, going down steps in his basement, when he was about 1 step up from the base, fell on his face, and was seen in the emergency department with a normal workup. His family is concerned as he appears to be more generally weak. He has no sick contacts and no recent extended travel. Primary Care Provider: Dick Adams MD The patient is an 84-year-old male with a past medical history including residual left sided weakness post previous CVA, bilateral rotator cuff arthropathy, perianal abscess and left buttock pressure ulcer, mild cognitive impairment, thrombocytopenia, chronic diastolic CHF, diabetes mellitus, cardiomyopathy, GERD, UTI, CAD, IVCD, esophageal stricture, cerebrovascular disease and prostate cancer. He is status post urologic procedure (pt states he had polyps removed from urethra), and had Interiano catheter removed yesterday morning, and noted bladder retention of 395 mL while in the ED this evening. He is otherwise brought to the emergency department by family, due to concerns regarding worsening generalized weakness, and his second fall now in the past few days. He reports having gone to [facility] for physical therapy in the past. This morning the patient was AAO x 2 (person, place). He did know the month but not the year and was aware of the three candidates running in this year's 2023 presidential election. Review of Systems Constitutional: + body aches (baseline body aches) and + fatigue (over the last 2 days for sure); no fever and no chills Respiratory: + dyspnea on exertion (chronic); no coug h Cardiovascular: no chest pain and no palpitations Genitourinary: + dysuria and + difficulty urinating (be fore admission) Musculoskeletal: + myalgia (left shoulder that patient fe ll on) Neurologic: + falls (recent Hx of falls), + generali zed weakness, + tingling (in left shouldr), + numbness and + tremor(s) (chronic, in hands and legs/feet) Physical Exam Constitutional: WD/WN, vitals as above Respiratory: normal respiratory effort, lungs clear to auscultation Cardiovascular: RRR, no murmur, no edema Extremities: normal capillary refill, + calf tenderness (more sensitive than pain) and + pedal edema (mild) Gastrointestinal (Abdomen): Percussion/Palpation: + abdomen tender (mild tenderness in suprapubic area) Musculoskeletal: tenderness of the l. shoulder Neurologic: awake and + confused (waxing and waning confusion) Motor/Sensory: + tremor Psychiatric: Orientation: alert, oriented to person, oriented to place and cooperative; + not oriented to time (doesn't know year, knows month) Results & Data Results & Data Vital Signs (Past 12 Hours) Vital Signs Temp Pulse Pulse Resp BP BP BP 05/01/24 05:35 65 05/01/24 05:35 36.6 C 112 H 20 178/76 H 185/75 H 05/01/24 05:30 36.6 C 66 20 178/76 H 05/01/24 04:00 66 20 192/86 H 05/01/24 03:00 66 20 132/104 H 05/01/24 02:00 65 17 177/86 H 05/01/24 01:00 65 17 158/74 H 05/01/24 00:34 36.6 C 63 21 135/74 04/30/24 23:51 68 21 04/30/24 23:31 77 04/30/24 23:15 36.7 C 77 18 159/84 H Pulse Ox O2 Del Method 05/01/24 05:35 05/01/24 05:35 99 Room Air 05/01/24 05:30 99 Room Air 05/01/24 04:00 97 Room Air 05/01/24 03:00 99 Room Air 05/01/24 02:00 99 Room Air 05/01/24 01:00 99 Room Air 05/01/24 00:34 97 Room Air 04/30/24 23:51 97 Room Air 04/30/24 23:31 04/30/24 23:15 99 Room Air Resident Activity Tracking Resident Involvement: Resident Care Provided Care Provided: Adult Hospital Medicine
--- NOTE | 2024-05-01 07:05 | XRay Report ---
XR shoulder LT min 2V routine HISTORY: 84 years-old Male fall acute left shoulder pain status post fall COMPARISON: 04/11/2024 TECHNIQUE: 3 views of the left shoulder FINDINGS: Median sternotomy. Left-sided pacer. Demineralized appearance of the bones. Moderate glenohumeral and AC joint osteoarthritis. No acute fracture, dislocation or osseous erosion. IMPRESSION: No acute fracture or dislocation. ACT 112: Negative or not required by law. The above report was generated using voice recognition software. It may contain grammatical, syntax o r spelling errors. Electronically signed by: Derrick Lang M.D. 05/01/2024 7:04 AM
--- NOTE | 2024-05-01 07:25 | XRay Report ---
XR hip LT 2V w pelvis HISTORY: 84 years-old Male fall, left hip pain acute left hip pain status post fall COMPARISON: CT abdomen and pelvis 03/26/2024 TECHNIQUE: AP view of the pelvis with 2 views of the left hip FINDINGS: Mild osteoarthritis of the hips. There is no acute fracture, dislocation or avascular necrosis. Vascu lar calcifications are noted. Moderate colonic fecal retention. IMPRESSION: No acute fracture or dislocation. ACT 112: Negative or not required by law. The above report was generated using voice recognition software. It may contain grammatical, syntax o r spelling errors. Electronically signed by: Derrick Lang M.D. 05/01/2024 7:24 AM
--- NOTE | 2024-05-01 07:32 | XRay Report ---
SINGLE VIEW CHEST CLINICAL HISTORY: Generalized weakness. FINDINGS: An AP, portable, upright chest radiograph is compared to study dated 01/29/2024 and correlat ed with chest CT dated 03/26/2024. The examination is degraded by portable technique and apical lordoti c positioning. The patient is status post midline sternotomy. A cardiac pacemaker is unchanged in pos ition. The heart is enlarged noting atherosclerotic calcification of the thoracic aorta. The pulmonar y vasculature is noncongested. Chronic interstitial thickening is similar to previous. There is mild bibasilar scarring/atelectasis. The lungs and pleural spaces are otherwise clear. No pneumothorax is seen. The skeletal structures are osteopenic. The bony thorax is grossly intact. IMPRESSION: 1. Cardiomegaly and cardiac pacemaker without radiographic evidence of congestive failure. 2. No airspace consolidation or large pleural effusion is identified. ACT 112: Negative or not required by law. Electronically signed by: Gordy Dominguez M.D. 05/01/2024 7:31 AM
[2024-05-01] MEDS: INSULIN ASPART PER UNIT CHARGE SC SCH (08:21)
[2024-05-01] MEDS: ACETAMINOPHEN 325 MG TAB PO PRN (08:24)
[2024-05-01] MEDS: PANTOprazole 40 MG TAB PO SCH (08:25)
[2024-05-01] MEDS: ESCITALOPRAM OXALATE 10 MG TAB PO SCH (08:25)
[2024-05-01] MEDS: ASCORBIC ACID 500 MG TAB PO SCH (08:26)
[2024-05-01] MEDS: FOLIC ACID 400 MCG TAB PO SCH (08:26)
[2024-05-01] MEDS: PRAVASTATIN SOD 10 MG TAB PO SCH (08:26)
[2024-05-01] MEDS: LEVOTHYROXINE SODIUM 50 MCG TABLET PO SCH (08:26)
[2024-05-01] MEDS: FERROUS SULFATE 325 MG TAB PO SCH (08:26)
[2024-05-01] MEDS: VALSARTAN/SACUBITRIL 26/24MG TAB PO SCH (08:26)
[2024-05-01 13:31] LABS: Estimated Average Glucose 163 mg/dl; Hemoglobin A1C 7.3 % (4.5-5.6)
--- NOTE | 2024-05-01 15:29 | Electrocardiogram Report ---
Test Reason : Blood Pressure : / mmHG Vent. Rate : 079 BPM Atrial Rate : 079 BPM P-R Int : 294 ms QRS Dur : 142 ms QT Int : 430 ms P-R-T Axes : 052 -68 062 degrees QTc Int : 493 ms Atrial-paced rhythm with prolonged AV conduction in a pattern of bigeminy Right bundle branch block Left anterior fascicular block Bifascicular block Abnormal ECG When compared with ECG of 29-NOV-2023 08:18, Electronic atrial pacemaker has replaced Sinus rhythm T wave amplitude has decreased in Inferior leads T wave inversion no longer evident in Lateral leads Confirmed by Bob Batista ([id number]) on 05/01/2024 3:28:58 PM Referred By: Dick Adams Confirmed By:Fredy Batista
--- NOTE | 2024-05-01 17:14 | Electrocardiogram Report ---
Test Reason : Blood Pressure : / mmHG Vent. Rate : 073 BPM Atrial Rate : 073 BPM P-R Int : 238 ms QRS Dur : 144 ms QT Int : 442 ms P-R-T Axes : 078 -66 061 degrees QTc Int : 486 ms Sinus rhythm with 1st degree A-V block Right bundle branch block Left anterior fascicular block Bifascicular block Abnormal ECG When compared with ECG of 30-APR-2024 23:31, (unconfirmed) Sinus rhythm has replaced Electronic atrial pacemaker Confirmed by Bob Batista ([id number]) on 05/01/2024 5:13:51 PM Referred By: Dick Adams Confirmed By:Fredy Batista
[2024-05-01] MEDS: CLOPIDOGREL BISULFATE 75 MG TAB PO SCH (20:10)
[2024-05-01] MEDS: FINASTERIDE 5 MG TAB PO SCH (20:10)
[2024-05-01] MEDS: TAMSULOSIN HCL 0.4 MG CAP PO SCH (20:10)
[2024-05-01] MEDS: LATANOPROST 0.005% OP SOLN 2.5 ML BTL OPB SCH (20:10)
[2024-05-01] MEDS: CHOLECALCIFEROL 25 MCG (1000 UNITS) TAB PO SCH (20:10)
[2024-05-01] MEDS: LABETALOL HCL IV 5 MG/ML 20ML IV STA (23:29)
[2024-05-02 06:41] LABS: Basophils # (auto) 0.03 K/uL (0.00-0.20); Basophils % (auto) 0.3 %; Eosinophils # (auto) 0.02 K/uL (0.00-0.50); Eosinophils % (auto) 0.2 %; Hematocrit (blood only) 29.3 % (42.0-52.0); Hemoglobin 9.9 g/dl (14.0-18.0); Immature Granulocytes # (auto) 0.21 K/uL (0.01-0.20); Immature Granulocytes % (auto) 2.1 %; Mean Corpuscular Hemoglobin 29.8 pg (25.0-34.0); Mean Corpuscular Hgb Conc 33.8 g/dL (32.0-36.0); Mean Corpuscular Volume 88.3 fL (80.0-100.0); Mean Platelet Volume 11.8 fL (9.4-12.4); Monocytes # (auto) 1.89 K/uL (0.11-0.59); Neutrophils # (auto) 6.61 K/uL (1.40-6.50); Neutrophils % (auto) 66.4 %; Platelet Count 131 K/uL (130-400); RDW Standard Deviation 45.1 fL (36.4-46.3); Red Blood Count 3.32 M/uL (4.70-6.10); White Blood Count 9.96 K/ul (4.8-10.8)
--- NOTE | 2024-05-02 06:58 | Hospitalist Progress Note ---
Date of Service May 02, 2024 Assessment & Plan (1) Acute on chronic diastolic CHF (congestive heart failure): (2) Accidental fall: (3) Left foot drop: (4) Incontinence: (5) Generalized weakness: (6) Mild cognitive impairment: (7) S/P TURP: (8) Diabetes mellitus: (9) Incomplete emptying of bladder: Plan Falls/weakness/left foot drop - Accidental fall/increasing frequency of falls/left foot drop and left-sided weakness residual of previous CVA from patient's Hx - Patient had a fall on 04/29 and earlier this evening, prompting family to be concerned about progressive weakness and potential injury CT-head: negative for any acute intracranial hemorrhage, midline shift, or mass effect - L shoulder XR and left hip XR both negative for fracture or dislocation - Falls appear to be due to progressive weakness, manifesting as falls secondary to worsening left foot drop when he is weak - dorsiflexion and plantar flexion normal, +5/5 strength, bilaterally - PT/OT consulted Hx of prostate cancer (SCC)--S/P TURP/urinary retention/Hx of urethral obstruction/JORGE/Urinary incontinence - Cystoscopy 04/20 followed by hollins removal 04/30. - Urinary incontinence, Dx'ed Dec 2023 - Had been unable to urinate in the ER, had straight cath use followed by condom catheter. 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 - Low threshold to place hollins catheter if incontinence is interfering with ability to perform PT/OT. - Phenazopyridine (for urinary tract pain) and oxybutynin, PRN - Continue tamsulosin and finasteride - Cr, 1.81 (baseline ~1.55-1.65) Acute on chronic diastolic CHF - Echocardiogram on 04/24/2024 shows EF 60-65%, mild aortic stenosis and mitral stenosis, and moderate mitral regurgitation - Patient with lower extremity edema and dyspnea on exertion - BNP 447 (baseline BNP unknown) - Lasix 20 mg IV, and follow response, discontinued - Patient admitted to telemetry for serial cardiac enzymes: HSTrop, 12.9 - EKG's: Sinus rhythm w/ 1st degree AV block (w/ bifascicular heart block) - cardiac rhythm monitoring - Continue clopidogrel, 75 mg, PO, QAM; Temporarily hold Entresto due to JORGE on CKD, but restarted on 05/01/24 AM Type 2 Diabetes mellitus - Glucose 323 on admission; Hold glimepiride - Patient was given 4 units of regular insulin IV by the ED, with follow-up Accu-Chek ordered - Placed on Accu-Cheks with NovoLog SSI Hypothyroidism - continue levothyroxine, 50 ug, PO, daily Code Status: Full Code Disposition: PCU-Tele. Anticipate possible need for rehab based on PT/OT evaluation. DVT Prophylaxis: SCD ordered FENGI: Heart healthy/[id number] Consistent Admission and Anticipated Discharge Date Admission Date: May 01, 2024 Supervising Physician Co-Signing Physician Notes I personally examined the patient and verified giles points of history and exam, discussed case, and agree with decision making and plan documented by Dr. Landeros. Patient seated comfortably on exam and without complaints today. He continues to be fully incontinent of urine, unsuccessful attempts to maintain condom catheter, will place Hollins catheter. Urine culture ordered. Discussed with patient's his worsening functional decline, she states he has been falling and off balance at home, she is also concerned about his worsening dementia. Awaiting PT evaluation for recommendations on possible rehab. Subjective Patient seen at the bedside today without much complaint other than possible abdominal discomfort without diarrhea or n/v. No overnight events. Review of Systems Review of Systems: As per HPI. Physical Exam Constitutional: WD/WN, vitals as above Eyes: PERRL, conjunctivae normal, anicteric sclerae Respiratory: normal respiratory effort, lungs clear to auscultation Cardiovascular: RRR, no murmur, no edema Gastrointestinal (Abdomen): normal bowel sounds, soft, nontender, no hepatosplenomegaly Results & Data Results & Data Vital Signs (Past 12 Hours) Vital Signs Temp Pulse Pulse Resp BP BP Pulse Ox 05/02/24 02:38 36.6 C 79 18 189/76 H 94 05/01/24 23:45 73 191/76 H 05/01/24 23:29 70 190/75 H 05/01/24 23:11 79 05/01/24 22:44 36.6 C 74 18 198/89 H 96 05/01/24 19:22 36.7 C 80 18 176/74 H 96 O2 Del Method 05/02/24 02:38 Room Air 05/01/24 23:45 05/01/24 23:29 05/01/24 23:11 05/01/24 22:44 Room Air 05/01/24 19:22 Room Air Resident Activity Tracking Resident Involvement: Resident Care Provided Care Provided: Adult Hospital Medicine
[2024-05-02 07:00] LABS: Albumin Level 3.6 gm/dl (3.4-5.0); BUN Creatinine Ratio 23.8 (10-20); Calcium 9.1 mg/dl (8.6-10.3); Est GFR (African American) 39.5 ml/min; Est GFR (Non-African American) 34.1 ml/min; Phosphorus 3.4 mg/dl (2.5-4.9); Potassium 4.6 mmol/L (3.5-5.1)
--- NOTE | 2024-05-02 07:24 | Electrocardiogram Report ---
Test Reason : Blood Pressure : / mmHG Vent. Rate : 072 BPM Atrial Rate : 072 BPM P-R Int : 218 ms QRS Dur : 136 ms QT Int : 428 ms P-R-T Axes : 012 -70 030 degrees QTc Int : 468 ms Sinus rhythm with 1st degree A-V block Right bundle branch block Left anterior fascicular block Bifascicular block Abnormal ECG Confirmed by Bob Batista ([id number]) on 05/02/2024 7:24:20 AM Referred By: Dick Adams Confirmed By:Fredy Batista
[2024-05-02 07:39] LABS: Estimated Average Glucose 163 mg/dl; Hemoglobin A1C 7.3 % (4.5-5.6)
[2024-05-02 08:19] LABS: Magnesium 1.8 mg/dl (1.7-2.4)
[2024-05-02] MEDS: carvediloL 3.125 MG TAB PO ONE (08:44)
--- NOTE | 2024-05-03 07:17 | Hospitalist Progress Note ---
Date of Service May 03, 2024 Assessment & Plan (1) Acute on chronic diastolic CHF (congestive heart failure): (2) Accidental fall: (3) Left foot drop: (4) Incontinence: (5) Generalized weakness: (6) Mild cognitive impairment: (7) S/P TURP: (8) Diabetes mellitus: (9) Incomplete emptying of bladder: Plan Falls/weakness/left foot drop - Accidental fall/increasing frequency of falls/left foot drop and left-sided weakness residual of previous CVA from patient's Hx - Patient had a fall on 04/29 and earlier this evening, prompting family to be concerned about progressive weakness and potential injury CT-head: negative for any acute intracranial hemorrhage, midline shift, or mass effect - L shoulder XR and left hip XR both negative for fracture or dislocation - Falls appear to be due to progressive weakness, manifesting as falls secondary to worsening left foot drop when he is weak - dorsiflexion and plantar flexion normal, +5/5 strength, bilaterally - PT/OT consulted recommending skilled PT and rehab. Leukocytosis: - Jump in patient's WBC from 9.96 to 19.26 05/02 to 05/03. - Neutrophil count also raised at 13.34 - Patient has remained hemodynamically stable, WBC has been <10 during stay. - No obvious sources of infection, Urine Cx negative. - Will repeat in the AM to check for true leukocytosis. Hx of prostate cancer (SCC)--S/P TURP/urinary retention/Hx of urethral obstruction/JORGE/Urinary incontinence - Cystoscopy 04/20 followed by hollins removal 04/30. - Urinary incontinence, Dx'ed Dec 2023 - Had been unable to urinate in the ER, had straight cath use followed by condom catheter. 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 - Low threshold to place hollins catheter if incontinence is interfering with ability to perform PT/OT. - Phenazopyridine (for urinary tract pain) and oxybutynin, PRN - Continue tamsulosin and finasteride - Cr 1.87 (baseline ~1.5-1.9) Acute on chronic diastolic CHF - Echocardiogram on 04/24/2024 shows EF 60-65%, mild aortic stenosis and mitral stenosis, and moderate mitral regurgitation - Patient with lower extremity edema and dyspnea on exertion - BNP 447 (baseline BNP unknown) - Lasix 20 mg IV, and follow response, discontinued - Patient admitted to telemetry for serial cardiac enzymes: HSTrop, 12.9 - EKG's: Sinus rhythm w/ 1st degree AV block (w/ bifascicular heart block) - cardiac rhythm monitoring - Continue clopidogrel, 75 mg, PO, QAM; Entresto BID. Type 2 Diabetes mellitus - Glucose 323 on admission; Hold glimepiride - Patient was given 4 units of regular insulin IV by the ED, with follow-up Accu-Chek ordered - Placed on Accu-Cheks with NovoLog SSI Hypothyroidism - continue levothyroxine, 50 ug, PO, daily Code Status: Full Code Disposition: PCU-Tele. Will need to go to rehab upon discharge. Case management to work on referrals. DVT Prophylaxis: SCD ordered FENGI: Heart healthy/[id number] Consistent Admission and Anticipated Discharge Date Admission Date: May 01, 2024 Supervising Physician Co-Signing Physician Notes I personally examined the patient and verified giles points of history and exam, discussed case, and agree with decision making and plan documented by Dr. Landeros. Patient pleasantly confused but comfortable during examination today. Discussed findings of physical therapy and recommendations for rehabilitation at discharge, patient has had experience with [facility] in the past, he is not sure if that is where he would like to go at this time. Patient complaining of medial left knee pain, there is mild ecchymosis along medial joint line, will order x-ray due to history of fall prior to admission. Urinary incontinence appears to be improving, Hollins catheter has not been placed, urine culture pending, leukocytosis on labs today. VSS and no overt signs/symptoms of infection. Patient has appointment with urology to follow-up pathology from urethral biopsies performed 04/20/2024, they are positive for poorly differentiated high-grade urethral carcinoma. Patient's and daughter will be coming in to visit patient this afternoon, it may be beneficial to discuss results with patient prior to discharge as he may not be able to attend scheduled follow-up appt. Subjective Patient seen at the bedside today feeling okay, had good sleep during the night although has felt more tired since being in the hospital. No overnight events. Review of Systems Review of Systems: As per HPI. Physical Exam Constitutional: WD/WN, vitals as above Eyes: PERRL, conjunctivae normal, anicteric sclerae Respiratory: normal respiratory effort Gastrointestinal (Abdomen): Inspection/Auscultation: abdomen normal to inspection Results & Data Results & Data Vital Signs (Past 12 Hours) Vital Signs Temp Pulse Pulse Resp BP BP Pulse Ox 05/03/24 02:33 36.7 C 76 18 177/74 H 95 05/02/24 23:13 80 05/02/24 22:39 36.6 C 70 18 166/66 H 96 05/02/24 20:20 05/02/24 19:29 36.8 C 73 18 158/75 H 99 O2 Del Method 05/03/24 02:33 Room Air 05/02/24 23:13 05/02/24 22:39 Room Air 05/02/24 20:20 Room Air 05/02/24 19:29 Room Air Resident Activity Tracking Resident Involvement: Resident Care Provided Care Provided: Adult Hospital Medicine
[2024-05-03 07:21] LABS: Basophils # (auto) 0.03 K/uL (0.00-0.20); Basophils % (auto) 0.2 %; Eosinophils # (auto) 0.05 K/uL (0.00-0.50); Eosinophils % (auto) 0.3 %; Hematocrit (blood only) 29.9 % (42.0-52.0); Immature Granulocytes # (auto) 0.36 K/uL (0.01-0.20); Immature Granulocytes % (auto) 1.9 %; Lymphocytes # (auto) 1.18 K/uL (1.20-3.40); Lymphocytes % (auto) 6.1 %; Mean Corpuscular Hemoglobin 29.8 pg (25.0-34.0); Mean Corpuscular Hgb Conc 33.4 g/dL (32.0-36.0); Monocytes % (auto) 22.3 %; Neutrophils # (auto) 13.34 K/uL (1.40-6.50); Neutrophils % (auto) 69.2 %; Platelet Count 140 K/uL (130-400); RDW Coefficient of Variation 13.9 % (11.5-14.5); RDW Standard Deviation 45.4 fL (36.4-46.3); Red Blood Count 3.36 M/uL (4.70-6.10); White Blood Count 19.26 K/ul (4.8-10.8)
[2024-05-03 07:24] LABS: Albumin Level 3.7 gm/dl (3.4-5.0); BUN Creatinine Ratio 26.2 (10-20); Calcium 9.3 mg/dl (8.6-10.3); Creatinine Clr Calc Pharmacy 32.9 ml/min; Est GFR (African American) 37.9 ml/min; Est GFR (Non-African American) 32.7 ml/min; Phosphorus 3.9 mg/dl (2.5-4.9); Potassium 4.7 mmol/L (3.5-5.1)
[2024-05-03 08:26] LABS: Magnesium 1.9 mg/dl (1.7-2.4)
[2024-05-03] MEDS: HYDROmorphone INJ 1 MG/ML SYRINGE IV STA (09:57)
--- NOTE | 2024-05-03 14:49 | Electrocardiogram Report ---
Test Reason : Blood Pressure : / mmHG Vent. Rate : 083 BPM Atrial Rate : 083 BPM P-R Int : 232 ms QRS Dur : 138 ms QT Int : 418 ms P-R-T Axes : 061 -76 073 degrees QTc Int : 491 ms Sinus rhythm with 1st degree A-V block Right bundle branch block Left anterior fascicular block Bifascicular block Abnormal ECG When compared with ECG of 02-MAY-2024 04:54, No significant change was found Confirmed by Dick Mohan ([id number]) on 05/03/2024 2:49:17 PM Referred By: Dick Adams Confirmed By:Dick Mohan
[2024-05-04 06:26] LABS: Basophils # (auto) 0.03 K/uL (0.00-0.20); Basophils % (auto) 0.3 %; Eosinophils # (auto) 0.05 K/uL (0.00-0.50); Eosinophils % (auto) 0.4 %; Hematocrit (blood only) 28.2 % (42.0-52.0); Hemoglobin 9.5 g/dl (14.0-18.0); Immature Granulocytes % (auto) 2.5 %; Lymphocytes # (auto) 1.67 K/uL (1.20-3.40); Mean Corpuscular Hgb Conc 33.7 g/dL (32.0-36.0); Mean Platelet Volume 11.9 fL (9.4-12.4); Monocytes # (auto) 2.03 K/uL (0.11-0.59); Monocytes % (auto) 17.1 %; Neutrophils # (auto) 7.82 K/uL (1.40-6.50); Neutrophils % (auto) 65.7 %; Platelet Count 131 K/uL (130-400); RDW Coefficient of Variation 14.2 % (11.5-14.5); RDW Standard Deviation 45.8 fL (36.4-46.3); Red Blood Count 3.17 M/uL (4.70-6.10)
[2024-05-04 06:44] LABS: Albumin Level 3.6 gm/dl (3.4-5.0); BUN Creatinine Ratio 26.2 (10-20); Calcium 9.2 mg/dl (8.6-10.3); Est GFR (African American) 28.5 ml/min; Est GFR (Non-African American) 24.6 ml/min; Phosphorus 4.5 mg/dl (2.5-4.9); Potassium 4.6 mmol/L (3.5-5.1)
--- NOTE | 2024-05-04 07:05 | Hospitalist Progress Note ---
"Date of Service May 04, 2024 Assessment & Plan (1) Acute on chronic diastolic CHF (congestive heart failure): (2) Accidental fall: (3) Left foot drop: (4) Incontinence: (5) Generalized weakness: (6) Mild cognitive impairment: (7) S/P TURP: (8) Diabetes mellitus: (9) Incomplete emptying of bladder: Plan Sam is a 84M w/ PMH of CHF, CKD, cognitive impairment, incontinence, sacral decubitus ulcer, diabetes mellitus, GERD, orthostatic hypotension, CAD, HLD, asthma, and hemorrhagic cystitis who presented for weakness and fall at home. 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 Leukocytosis: - Leukocytosis now downtrending, remains hemodynamically stable - No obvious sources of infection, Urine Cx negative. 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 - Phenazopyridine (for urinary tract pain) and oxybutynin, PRN - Continue tamsulosin and finasteride - Cr 1.87 (baseline ~1.5-1.9) Cr increased to 2.37, likely from poor PO intake Recheck in AM Acute on chronic diastolic CHF - Echocardiogram on 04/24/2024 shows EF 60-65%, mild aortic stenosis and mitral stenosis, and moderate mitral regurgitation Patient with mild lower extremity edema - BNP 447 (baseline BNP unknown) S/p Lasix 20 mg IV, and follow response, discontinued No home diuretic use - Patient admitted to telemetry for serial cardiac enzymes: HSTrop, 12.9 EKG's: Sinus rhythm w/ 1st degree AV block (w/ bifascicular heart block) - Continue clopidogrel, 75 mg, PO, QAM; Entresto BID. Type 2 Diabetes mellitus - Glucose 323 on admission; Hold glimepiride - Patient was given 4 units of regular insulin IV by the ED, with follow-up Accu-Chek ordered - Placed on Accu-Cheks with NovoLog SSI Hypothyroidism - continue levothyroxine, 50 ug, PO, daily Code Status: Full Code Disposition: PCU-Tele. Pending [facility]. DVT Prophylaxis: SCD ordered FENGI: Heart healthy/[id number] Consistent Admission and Anticipated Discharge Date Admission Date: May 01, 2024 Supervising Physician Co-Signing Physician Notes I personally examined the patient and verified all giles points of history and exam, discussed case, and agree with decision making with Dr Randall No acute complaints today/no new complaints today. Awaiting rehab. Vitals noted, in general he is awake and alert pleasant no distress. HEENT normocephalic atraumatic mucous membranes moist. Breathing unlabored no accessory muscle use good effort. Skin shows no rashes no pallor or icterus. Neuro without focal deficits. WeaknessPT/OT eval and treat. Anticipate rehab placement. Confusionseems to be mild deliriumstable for medical, but given that it is late in the day, I would hesitate to move him given that it could precipitate a worse delirium, and possibly impede being able to get him to rehab tomorrow. should he be remaining inpatient/having no rehab bed tomorrow, would move him to medical earlier in the day. Otherwise as above Subjective Patient resting comfortably in bed this morning, and daughter on the phone. Patient notes L shoulder pain, a/w fall. Otherwise asymptomatic. No acute events overnight. Physical Exam Constitutional: WD/WN, vitals as above Eyes: PERRL, conjunctivae normal, anicteric sclerae Respiratory: normal respiratory effort, lungs clear to auscultation normal respiratory effort Cardiovascular: RRR, no murmur, no edema Extremities: normal capillary refill and + edema (mild) Gastrointestinal (Abdomen): normal bowel sounds, soft, nontender, no hepatosplenomegaly Inspection/Auscultation: abdomen normal to inspection Neurologic: awake and + confused (waxing and waning confusion) Motor/Sensory: + tremor Psychiatric: Orientation: alert, oriented to person, oriented to place, oriented to time (doesn't know year, knows month) and cooperative Results & Data Results & Data Vital Signs (Past 12 Hours) Vital Signs Temp Pulse Pulse Resp BP Pulse Ox O2 Del Method 05/04/24 03:08 36.7 C 61 18 167/73 H 95 Room Air 05/03/24 23:03 68 05/03/24 22:43 36.8 C 68 17 161/73 H 98 Room Air Resident Activity Tracking Resident Involvement: Resident Care Provided Care Provided: Adult Hospital Medicine"
--- NOTE | 2024-05-04 07:33 | XRay Report ---
XR knee LT 3V CLINICAL HISTORY: medial knee pain s/p fall TECHNIQUE: 3 views of the left knee were obtained. Comparison: None available at the time of this dictation. FINDINGS: There is no evidence of an acute fracture. Joint spaces are well-preserved. No joint effusion is seen . Vascular calcifications are noted. IMPRESSION: No evidence of acute osseous injury. ACT 112: Negative or not required by law. Electronically signed by: Bryon Wilson M.D. 05/04/2024 7:31 AM
--- NOTE | 2024-05-04 18:35 | Billing Data ---
Date of Service May 04, 2024 Coding Level of Care Code 72332 SUB INP/OBS CARE
[2024-05-05 07:13] LABS: Hematocrit (blood only) 28.4 % (42.0-52.0); Hemoglobin 9.3 g/dl (14.0-18.0); Mean Corpuscular Hemoglobin 29.2 pg (25.0-34.0); Mean Corpuscular Hgb Conc 32.7 g/dL (32.0-36.0); Platelet Count 141 K/uL (130-400); RDW Coefficient of Variation 14.2 % (11.5-14.5); RDW Standard Deviation 46.1 fL (36.4-46.3); Red Blood Count 3.19 M/uL (4.70-6.10); White Blood Count 8.58 K/ul (4.8-10.8)
[2024-05-05 07:35] LABS: BUN Creatinine Ratio 32.1 (10-20); Creatinine Clr Calc Pharmacy 27.5 ml/min; Est GFR (African American) 30.5 ml/min; Est GFR (Non-African American) 26.3 ml/min; Magnesium 2.1 mg/dl (1.7-2.4); Potassium 4.6 mmol/L (3.5-5.1)
--- NOTE | 2024-05-05 19:51 | Discharge Summary ---
"Discharge Summary Date of Service May 05, 2024 Principal Dx & Hospital Course #1 = Principal Diagnosis (1) Acute on chronic diastolic CHF (congestive heart failure): (2) Accidental fall: (3) Left foot drop: (4) Incontinence: (5) Generalized weakness: (6) Mild cognitive impairment: (7) S/P TURP: (8) Diabetes mellitus: (9) Incomplete emptying of bladder: Terrance Vargas is a 84M w/ PMH of CHF, CKD, cognitive impairment, incontinence, sacral decubitus ulcer, diabetes mellitus, GERD, orthostatic hypotension, CAD, HLD, asthma, and hemorrhagic cystitis who presented for weakness and fall at home. 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 Leukocytosis: - Leukocytosis now downtrending, remains hemodynamically stable - No obvious sources of infection, Urine Cx negative. 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 - Phenazopyridine (for urinary tract pain) and oxybutynin, PRN - Continue tamsulosin and finasteride - Cr 1.87 (baseline ~1.5-1.9) Cr increased to 2.37, likely from poor PO intake Recheck in AM Acute on chronic diastolic CHF - Echocardiogram on 04/24/2024 shows EF 60-65%, mild aortic stenosis and mitral stenosis, and moderate mitral regurgitation Patient with mild lower extremity edema - BNP 447 (baseline BNP unknown) S/p Lasix 20 mg IV, and follow response, discontinued No home diuretic use - Patient admitted to telemetry for serial cardiac enzymes: HSTrop, 12.9 EKG's: Sinus rhythm w/ 1st degree AV block (w/ bifascicular heart block) - Continue clopidogrel, 75 mg, PO, QAM; Entresto BID. Type 2 Diabetes mellitus - Glucose 323 on admission; Hold glimepiride - Patient was given 4 units of regular insulin IV by the ED, with follow-up Accu-Chek ordered - Placed on Accu-Cheks with NovoLog SSI Hypothyroidism - continue levothyroxine, 50 ug, PO, daily Code Status: Full Code Disposition: PCU-Tele. Pending [facility]. DVT Prophylaxis: SCD ordered FENGI: Heart healthy/[id number] Consistent Notes For Next Care Provider Medication Changes From Visit see med rec Admission HPI Per Admitting Provider The patient is an 84-year-old male with a past medical history including residual left sided weakness post previous CVA, bilateral rotator cuff arthropathy, perianal abscess and left buttock pressure ulcer, mild cognitive impairment, thrombocytopenia, chronic diastolic CHF, diabetes mellitus, cardiomyopathy, GERD, UTI, CAD, IVCD, esophageal stricture, cerebrovascular disease and prostate cancer. He is status post urologic procedure, and had Hollins catheter removed yesterday morning, and noted bladder retention of 395 mL while in the ED this evening. He is otherwise brought to the emergency department by family, due to concerns regarding worsening generalized weakness, and his second fall and now in the past few days. He reports having gone to [place] for physical therapy in the past Updated Medication List Medication Instructions Recorded Confirmed Type folic acid 400 mcg tablet 0.4 mg PO QAM 02/22/22 05/01/24 History ferrous sulfate 325 mg (65 mg 325 mg PO Q2D 12/06/22 05/01/24 History iron) tablet (iron) blood-glucose meter (FreeStyle #1 ea 02/08/23 05/01/24 Rx Lite Meter kit) acetaminophen 650 mg 650 mg PO Q8H PRN Pain 05/03/23 05/01/24 History tablet,extended release (Arthritis Pain Relief (acetaminophen) ER) latanoprost 0.005 % eye drops 1 drp OPB HS 06/21/23 05/01/24 History (Xalatan) lancets 28 gauge (FreeStyle #300 ea 08/05/23 05/01/24 Rx Lancets) finasteride 5 mg tablet (Proscar) 5 mg PO HS #90 tabs 10/31/23 05/01/24 Rx ascorbic acid (vitamin C) 500 mg 500 mg PO Q2D 11/29/23 05/01/24 History tablet (Vitamin C) cholecalciferol (vitamin D3) 50 50 mcg PO QPM 11/29/23 05/01/24 History mcg (2,000 unit) tablet (Vitamin D3) pravastatin 10 mg tablet 10 mg PO QAM #90 tabs 12/05/23 05/01/24 Rx sacubitril 24 mg-valsartan 26 mg 1 tab PO BID #180 tabs 12/06/23 05/01/24 Rx tablet (Entresto) clopidogrel 75 mg tablet (Plavix) 75 mg PO PM #90 tabs 02/05/24 05/01/24 Rx blood sugar diagnostic (FreeStyle #100 ea 02/17/24 05/01/24 Rx Lite Strips) glimepiride 2 mg tablet 2 mg PO BID #60 tabs 03/05/24 05/01/24 Rx levothyroxine 50 mcg tablet 50 mcg PO QAM #90 tabs 03/24/24 05/01/24 Rx (Synthroid) escitalopram oxalate 5 mg tablet 5 mg PO QAM 04/08/24 05/01/24 History oxybutynin chloride 5 mg tablet 5 mg PO Q12 PRN bladder spasms #10 04/20/24 05/01/24 Rx tabs phenazopyridine 200 mg tablet 200 mg PO Q8H PRN pain #10 tabs 04/20/24 05/01/24 Rx (Pyridium) pantoprazole 20 mg tablet,delayed 20 mg PO QAM 05/01/24 05/01/24 History release (Protonix) tamsulosin 0.4 mg capsule (Flomax) 0.4 mg PO HS 05/01/24 05/01/24 History Hospital Stay Data Consultations 05/01/24 01:33 ED Decision to Admit Stat Diagnostic Imagining Performed 04/30/24 23:51 CT cervical spine wo con Stat CT head/brain wo con Stat Pending Results Patient Have Any Pending Studies at Discharge: No Discharge Instructions Given to Patient (Per Discharging Provider) CBC, BMP on 05/07 then as clinically warranted last a/p from progress notes: Terrance Vargas is a 84M w/ PMH of CHF, CKD, cognitive impairment, incontinence, sacral decubitus ulcer, diabetes mellitus, GERD, orthostatic hypotension, CAD, HLD, asthma, and hemorrhagic cystitis who presented for weakness and fall at home. 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 Leukocytosis: - Leukocytosis now downtrending, remains hemodynamically stable - No obvious sources of infection, Urine Cx negative. 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 - Phenazopyridine (for urinary tract pain) and oxybutynin, PRN - Continue tamsulosin and finasteride - Cr 1.87 (baseline ~1.5-1.9) Cr increased to 2.37, likely from poor PO intake Recheck in AM Acute on chronic diastolic CHF - Echocardiogram on 04/24/2024 shows EF 60-65%, mild aortic stenosis and mitral stenosis, and moderate mitral regurgitation Patient with mild lower extremity edema - BNP 447 (baseline BNP unknown) S/p Lasix 20 mg IV, and follow response, discontinued No home diuretic use - Patient admitted to telemetry for serial cardiac enzymes: HSTrop, 12.9 EKG's: Sinus rhythm w/ 1st degree AV block (w/ bifascicular heart block) - Continue clopidogrel, 75 mg, PO, QAM; Entresto BID. Type 2 Diabetes mellitus - Glucose 323 on admission; Hold glimepiride - Patient was given 4 units of regular insulin IV by the ED, with follow-up Accu-Chek ordered - Placed on Accu-Cheks with NovoLog SSI Hypothyroidism - continue levothyroxine, 50 ug, PO, daily Code Status: Full Code Disposition: PCU-Tele. Pending [facility]. DVT Prophylaxis: SCD ordered FENGI: Heart healthy/[id number] Consistent Admission and Anticipated Discharge Date Admission Date: May 01, 2024 WeaknessPT/OT eval and treat. for rehab placement. Otherwise as above Total Time Total Time Spent Total Time Spent (In Minutes): <30"
--- NOTE | 2024-05-05 19:51 | Billing Data ---
Date of Service May 05, 2024 Coding Level of Care Code 07293 IN/OBS DISCH 30 MIN/LESS
== END 2024-05-05 14:09 | DRG 291 ==
LOC: ED 23:24 → 2S 05-01 05:30 → SUATTDRO 05-01 05:32

== ENCOUNTER 2024-05-23 13:38 | Inpatient (IN) ==
--- OUTSIDE RECORDS SUMMARY | 2024-05-23 13:42 | External Medical Summary ---
Author Name Unknown Address Unknown Organization [id number]:[facility] [place] [address] Laboratory Report Ordering Provider Test Date Status WILFRED COHEN 05/12/2024 13:48:46 Final Observation Date Value Abnormality Reference (Units ) Status WBC, Total 05/12/2024 13:48:46 12.98 Above high normal 4 .00-10.80 (K/uL) Final RBC 05/12/2024 13:48:46 2.83 4.50-5.25 (M/uL) Final Hemoglobin 05/12/2024 13:48:46 8.4 Below low normal 14 .0-16.8 (g/dL) Final HCT 05/12/2024 13:48:46 26.2 Below low normal 40. 0-48.4 (%) Final MCV 05/12/2024 13:48:46 92.6 82.0-99.5 (fL) Final MCH 05/12/2024 13:48:46 29.7 27.0-34.0 (pg) Final MCHC 05/12/2024 13:48:46 32.1 32.0-36.0 (g/dL) Final RDW 05/12/2024 13:48:46 14.7 11.5-15.5 (%) Final Platelets 05/12/2024 13:48:46 122 Below low normal 140 -400 (K/uL) Final MPV 05/12/2024 13:48:46 11.9 6.6-11.1 ( fL) Final Performing Location [facility] [place] [address]
--- OUTSIDE RECORDS SUMMARY | 2024-05-23 13:42 | External Medical Summary ---
Author Name Unknown Address Unknown Organization [id number]:[facility] [place] [address] Laboratory Report Ordering Provider Test Date Status HY,DEPAMPHILIS 05/20/2024 07:40:32 Final Observation Date Value Abnormality Reference (Units ) Status WBC, Total 05/20/2024 07:40:32 7.66 4.00-10.8 0 (K/uL) Final RBC 05/20/2024 07:40:32 3.08 4.50-5.25 (M/uL) Final Hemoglobin 05/20/2024 07:40:32 9.1 Below low normal 14 .0-16.8 (g/dL) Final HCT 05/20/2024 07:40:32 28.5 Below low normal 40. 0-48.4 (%) Final MCV 05/20/2024 07:40:32 92.5 82.0-99.5 (fL) Final MCH 05/20/2024 07:40:32 29.5 27.0-34.0 (pg) Final MCHC 05/20/2024 07:40:32 31.9 32.0-36.0 (g/dL) Final RDW 05/20/2024 07:40:32 14.8 11.5-15.5 (%) Final Platelets 05/20/2024 07:40:32 159 140-400 (K /uL) Final MPV 05/20/2024 07:40:32 11.5 6.6-11.1 ( fL) Final Performing Location [facility] [place] [address]
--- OUTSIDE RECORDS SUMMARY | 2024-05-23 13:42 | External Medical Summary ---
Author Name Unknown Address Unknown Organization K09:[facility] [place] [address] Laboratory Report Ordering Provider Test Date Status HY,DEPAMPHILIS 05/06/2024 06:04:18 Final Observation Date Value Abnormality Reference (Units ) Status WBC, Total 05/06/2024 06:04:18 8.53 4.00-10.8 0 (K/uL) Final RBC 05/06/2024 06:04:18 3.30 4.50-5.25 (M/uL) Final Hemoglobin 05/06/2024 06:04:18 9.8 Below low normal 14 .0-16.8 (g/dL) Final HCT 05/06/2024 06:04:18 29.9 Below low normal 40. 0-48.4 (%) Final MCV 05/06/2024 06:04:18 90.6 82.0-99.5 (fL) Final MCH 05/06/2024 06:04:18 29.7 27.0-34.0 (pg) Final MCHC 05/06/2024 06:04:18 32.8 32.0-36.0 (g/dL) Final RDW 05/06/2024 06:04:18 14.5 11.5-15.5 (%) Final Platelets 05/06/2024 06:04:18 152 140-400 (K /uL) Final MPV 05/06/2024 06:04:18 11.8 6.6-11.1 ( fL) Final Performing Location [facility] [place] [address]
--- OUTSIDE RECORDS SUMMARY | 2024-05-23 13:42 | External Medical Summary ---
Author Name Unknown Address Unknown Organization [id number]:[facility] [place] [address] [place] [address] Laboratory Report Ordering Provider Test Date Status ALECIARED 05/12/2024 13:48:46 Final use this am's specimen Observation Date Value Abnormality Reference (Units ) Status TSH 05/12/2024 13:48:46 2.82 0.27-4.20 (uIU/mL) Final Performing Location [facility] [place] [address] [place] [address]
--- OUTSIDE RECORDS SUMMARY | 2024-05-23 13:42 | External Medical Summary ---
Author Name Unknown Address Unknown Organization [id number]:[facility] [place] [place] [address] Laboratory Report Ordering Provider Test Date Status WILFRED COHEN 05/12/2024 13:48:46 Final Observation Date Value Abnormality Reference (Units ) Status BUN 05/12/2024 13:48:46 44 Above high normal 6-20 (mg/dL) Final Creatinine 05/12/2024 13:48:46 2.1 Above high normal 0.6-1.2 (mg/dL) Final Glomerular filtration rate/1.73 sq M.predicted [Volume Rate/Area] in Serum, Plasma or Blood by Creatinine-based formula (CKD-EPI) 05/12/2024 13:48:46 31 Below low normal >=60 (mL/min) Final eGFR is calculated based on the CKD-EPI 2020 equation Sodium 05/12/2024 13:48:46 134 Below low normal 135 -146 (mmol/L) Final Potassium 05/12/2024 13:48:46 4.9 3.5-5.1 (m mol/L) Final Cl 05/12/2024 13:48:46 100 98-107 (mm ol/L) Final CO2 05/12/2024 13:48:46 21 Below low normal 22- 32 (mmol/L) Final Anion gap 05/12/2024 13:48:46 13 7-15 (mmol /L) Final Glucose 05/12/2024 13:48:46 188 Above high normal 70 -120 (mg/dL) Final Calcium 05/12/2024 13:48:46 8.9 8.4-10.2 ( mg/dL) Final Performing Location [facility] [place] [place] [address]
--- OUTSIDE RECORDS SUMMARY | 2024-05-23 13:42 | External Medical Summary ---
Author Name Unknown Address Unknown Organization [id number]:[facility] [place] [address] [place] [address] Laboratory Report Ordering Provider Test Date Status WILFRED COHEN 05/12/2024 13:48:46 Final Observation Date Value Abnormality Reference (Units ) Status Troponin T 05/12/2024 13:48:46 48 Above high normal < =22 (ng/L) Final Performing Location [facility] [place] - [address] [place] [address]
--- OUTSIDE RECORDS SUMMARY | 2024-05-23 13:42 | External Medical Summary ---
Author Name Unknown Address Unknown Organization K09:[facility] [place] [address] Laboratory Report Ordering Provider Test Date Status HY,DEPAMPHILIS 05/13/2024 06:41:00 Final Observation Date Value Abnormality Reference (Units ) Status WBC, Total 05/13/2024 06:41:00 9.86 4.00-10.8 0 (K/uL) Final RBC 05/13/2024 06:41:00 2.75 4.50-5.25 (M/uL) Final Hemoglobin 05/13/2024 06:41:00 8.2 Below low normal 14 .0-16.8 (g/dL) Final HCT 05/13/2024 06:41:00 25.4 Below low normal 40. 0-48.4 (%) Final MCV 05/13/2024 06:41:00 92.4 82.0-99.5 (fL) Final MCH 05/13/2024 06:41:00 29.8 27.0-34.0 (pg) Final MCHC 05/13/2024 06:41:00 32.3 32.0-36.0 (g/dL) Final RDW 05/13/2024 06:41:00 14.8 11.5-15.5 (%) Final Platelets 05/13/2024 06:41:00 124 Below low normal 140 -400 (K/uL) Final MPV 05/13/2024 06:41:00 11.8 6.6-11.1 ( fL) Final Performing Location [facility] [place] [address]
--- OUTSIDE RECORDS SUMMARY | 2024-05-23 13:42 | External Medical Summary ---
Author Name Unknown Address Unknown Organization K09:[facility] [place] [address] Laboratory Report Ordering Provider Test Date Status WILFRED COHEN 05/12/2024 13:50:24 Final Observation Date Value Abnormality Reference (Units ) Status Color of Urine by Auto 05/12/2024 13:50:24 Yellow Light Yellow, Yellow, Dark Yellow Final Clarity, Urine 05/12/2024 13:50:24 Slightly Cloudy Abnormal Clear Final Glucose [Mass/volume] in Urine by Automated test strip 05/12/2024 13:50:24 Negative Negative (mg/dL) Final Bilirubin.total [Presence] in Urine by Automated test strip 05/12/2024 13:50:24 Negative Negative Final Ketones [Mass/volume] in Urine by Automated test strip 05/12/2024 13:50:24 Trace Abnormal Negative (mg/dL) Final Specific gravity, Urine 05/12/2024 13:50:24 1.025 1.003-1.030 Final Hemoglobin [Presence] in Urine by Automated test strip 05/12/2024 13:50:24 Trace Abnormal Negative Final pH, Urine 05/12/2024 13:50:24 5.5 5.0-7.5 (Units) Final Protein [Mass/volume] in Urine by Automated test strip 05/12/2024 13:50:24 >=300 Abnormal Negative (mg/dL) Final Urobilinogen [Mass/volume] in Urine by Automated test strip 05/12/2024 13:50:24 0.2 0.2, 1.0 (mg/dL) Final Nitrite [Presence] in Urine by Automated test strip 05/12/2024 13:50:24 Negative Negative Final Leukocyte esterase [Presence] in Urine by Automated test strip 05/12/2024 13:50:24 Negative Negative Final Performing Location [facility] [place] [address]
--- OUTSIDE RECORDS SUMMARY | 2024-05-23 13:42 | External Medical Summary ---
Author Name Unknown Address Unknown Organization K09:[facility] [place] [address] Laboratory Report Ordering Provider Test Date Status HY,DEPAMPHILIS 05/13/2024 06:41:00 Final Observation Date Value Abnormality Reference (Units ) Status BUN 05/13/2024 06:41:00 46 Above high normal 6-20 (mg/dL) Final Creatinine 05/13/2024 06:41:00 2.0 Above high normal 0.6-1.2 (mg/dL) Final Glomerular filtration rate/1.73 sq M.predicted [Volume Rate/Area] in Serum, Plasma or Blood by Creatinine-based formula (CKD-EPI) 05/13/2024 06:41:00 33 Below low normal >=60 (mL/min) Final eGFR is calculated based on the CKD-EPI 2020 equation Sodium 05/13/2024 06:41:00 138 135-146 (m mol/L) Final Potassium 05/13/2024 06:41:00 5.1 3.5-5.1 (m mol/L) Final Cl 05/13/2024 06:41:00 105 98-107 (mm ol/L) Final CO2 05/13/2024 06:41:00 22 22-32 (mmo l/L) Final Anion gap 05/13/2024 06:41:00 11 7-15 (mmol /L) Final Glucose 05/13/2024 06:41:00 67 Below low normal 70- 120 (mg/dL) Final Calcium 05/13/2024 06:41:00 8.8 8.4-10.2 ( mg/dL) Final Performing Location [facility] [place] [address]
--- OUTSIDE RECORDS SUMMARY | 2024-05-23 13:42 | External Medical Summary ---
Author Name Unknown Address Unknown Organization K09:[facility] [place] [address] Laboratory Report Ordering Provider Test Date Status HY,DEPAMPHILIS 05/06/2024 06:04:18 Final Observation Date Value Abnormality Reference (Units ) Status BUN 05/06/2024 06:04:18 61 Above high normal 6-20 (mg/dL) Final Creatinine 05/06/2024 06:04:18 2.0 Above high normal 0.6-1.2 (mg/dL) Final Glomerular filtration rate/1.73 sq M.predicted [Volume Rate/Area] in Serum, Plasma or Blood by Creatinine-based formula (CKD-EPI) 05/06/2024 06:04:18 33 Below low normal >=60 (mL/min) Final eGFR is calculated based on the CKD-EPI 2020 equation Sodium 05/06/2024 06:04:18 137 135-146 (m mol/L) Final Potassium 05/06/2024 06:04:18 5.0 3.5-5.1 (m mol/L) Final Cl 05/06/2024 06:04:18 103 98-107 (mm ol/L) Final CO2 05/06/2024 06:04:18 22 22-32 (mmo l/L) Final Anion gap 05/06/2024 06:04:18 12 7-15 (mmol /L) Final Glucose 05/06/2024 06:04:18 178 Above high normal 70 -120 (mg/dL) Final Calcium 05/06/2024 06:04:18 9.1 8.4-10.2 ( mg/dL) Final Performing Location [facility] [place] [address]
--- OUTSIDE RECORDS SUMMARY | 2024-05-23 13:42 | External Medical Summary | Continuity of Care Document ---
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 Name Role Phone Dick Isabell Primary Care Physician [phone] [id number] Date(s): 05/01/24 - 05/01/[address] [phone] Discharge Disposition: Home or Self Care Attending Physician: MD Welsh Eugene J Referring Physician: MD Welsh Eugene J Allergies, Adverse Reactions, Alerts Substance Criticality Severity Reaction Reaction Severity Status penicillins Hives Active sulfa drugs Rash Active Flexeril Hallucinations Activ e oxyCODONE Hallucinations Activ e traMADol Hallucinations Activ e OxyCONTIN hallucinations Activ e Medications acetaminophen Start: 05/29/22 4:43:00 PM EDT, 650 mg =, PO, q4h, PRN: pain - mild (1-3) Start Date: 05/29/22 Status: Ordered clindamycin 300 mg oral capsule Start: 04/04/22 9:35:00 AM EDT, take 2 caps 1 hour prior to dental procedures Start Date: 04/04/22 Status: Ordered clopidogrel 75 mg oral tablet Start: 04/04/22 9:33:00 AM EDT, 1 tab, PO, qhs Start Date: 04/04/22 Status: Ordered Entresto 24 mg-26 mg oral tablet Start: 01/30/24 10:38:00 AM EDT, 1 tab, PO, bid Start Date: 01/30/24 Status: Ordered finasteride 5 mg oral tablet Start: 04/04/22 9:32:00 AM EDT, 1 tab, PO, qhs Start Date: 04/04/22 Status: Ordered folic acid 0.4 mg oral tablet Start: 04/04/22 9:33:00 AM EDT, 1 tab, PO, qAM Start Date: 04/04/22 Status: Ordered latanoprost 0.005% ophthalmic solution Start: 01/30/24 10:36:00 AM EDT, 1 drop, both eyes, qhs Start Date: 01/30/24 Status: Ordered levothyroxine 50 mcg (0.05 mg) oral tablet Start: 04/04/22 9:33:00 AM EDT, 1 tab, PO, qAM Start Date: 04/04/22 Status: Ordered pravastatin 10 mg oral tablet Start: 04/04/22 9:32:00 AM EDT, 1 tab, PO, qAM Start Date: 04/04/22 Status: Ordered Trulicity Pen 4.5 mg/0.5 mL subcutaneous solution Start: 01/30/24 10:37:00 AM EDT, 4.5 mg =, subQ, q7days, Disp# 2 mL Start Date: 01/30/24 Status: Ordered Problem List Condition Confirmation Course Effective Dates Status H ealth Status Informant Carotid stenosis, bilateral Confirmed Active CAD (coronary artery disease) Confirmed Active Diabetes mellitus Confirmed Active Elevated cholesterol Confirmed Active Mitral regurgitation Confirmed Active Mobitz I Confirmed Active Prostate cancer Confirmed Active Carotid stenosis, right Confirmed Active Skin cancer 1 Confirmed Active TIA Confirmed Active 1had Mohs surgery Procedures Procedure Date Related Diagnosis Body Site Status Back L5 1996 Completed ANESTH REPAIR OF HERNIA 194 C ompleted Anesthesia for total knee replacement Completed Cholecystectomy Completed Tonsillectomy and adenoidectomy Completed Social History Social History Type Response Smoking Status Former Smoker, quit > 1 yr Sex Male Implantable Device List Procedure Provider Procedure Date Device Type Site Unknown Unknown 05/23/22 Unknown Unknown Device Identifier Serial Number Lot or Batch Number Manufacturing Date Expiration Date Distinct Identification Code MRI Safety Implantable Status Assigning Authority Unknown Unknown N/A Unknown 10/11/22 Unknown Unknown Active Unk nown Unknown Unknown N/A Unknown 07/14/22 Unknown Unknown Active Unkn own Unknown Unknown N/A Unknown 10/09/23 Unknown Unknown Active Unk nown Unknown Unknown N/A Unknown 07/01/23 Unknown Unknown Active Unkn own Unknown Unknown [id number] Unknown 01/18/23 Unknown Unknown Active Unkn own Patient Care team information Care Team Personnel Name: Carlos Rosales Amy E Position: Pharmacist Member Role: Pharmacy - Lifetime Address: Address: [facility] [address] [place] [address] [place] Name: LISA Murguia Mayeen R Position: Nurse Pract - CT Surgery Member Role: Lifetime Relationship Address: Address: [address] [place] [address] [address] [place] [address] [place] Name: LINWOOD Jensen Lynn Position: Physician Bow String Maker Exempt - Vasc Surg Member Role: Lifetime Relationship Address: Address: [address] [place] [address] [address] [place] [address] [place] Name: MD Adams Jeffrey W Position: Referring DIRECT Member Role: Primary Care Provider Address: Address: [facility] [address] [facility] [address] [place] [address] [place] Name: MD Taz, Rosalind Position: Physician - Pathologist Member Role: Lifetime Relationship Address: Address: [address] [place] [id number] Care Team Related Persons Name: FRANCO RAPP Address: home [address] [place] [address] BALBIR KRUEGER [phone]
--- OUTSIDE RECORDS SUMMARY | 2024-05-23 13:42 | External Medical Summary ---
Author Name Unknown Address Unknown Organization K09[facility] [place] [place] [address] Laboratory Report Ordering Provider Test Date Status HY,DEPAMPHILIS 05/20/2024 07:40:32 Final Observation Date Value Abnormality Reference (Units ) Status BUN 05/20/2024 07:40:32 45 Above high normal 6-20 (mg/dL) Final Creatinine 05/20/2024 07:40:32 2.0 Above high normal 0.6-1.2 (mg/dL) Final Glomerular filtration rate/1.73 sq M.predicted [Volume Rate/Area] in Serum, Plasma or Blood by Creatinine-based formula (CKD-EPI) 05/20/2024 07:40:32 34 Below low normal >=60 (mL/min) Final eGFR is calculated based on the CKD-EPI 2020 equation Sodium 05/20/2024 07:40:32 139 135-146 (m mol/L) Final Potassium 05/20/2024 07:40:32 4.9 3.5-5.1 (m mol/L) Final Cl 05/20/2024 07:40:32 105 98-107 (mm ol/L) Final CO2 05/20/2024 07:40:32 22 22-32 (mmo l/L) Final Anion gap 05/20/2024 07:40:32 12 7-15 (mmol /L) Final Glucose 05/20/2024 07:40:32 112 70-120 (mg /dL) Final Calcium 05/20/2024 07:40:32 9.4 8.4-10.2 ( mg/dL) Final Performing Location [facility] [place] [address]
[2024-05-23 14:56] LABS: Albumin Level 3.8 gm/dl (3.4-5.0); BUN Creatinine Ratio 23.8 (10-20); Bilirubin Direct 0.1 mg/dl (0-0.2); Bilirubin,Total 0.3 mg/dl (0.2-1.0); Creatinine Clr Calc Pharmacy 25.3 ml/min; Est GFR (African American) 28.1 ml/min; Est GFR (Non-African American) 24.2 ml/min; Potassium 4.9 mmol/L (3.5-5.1); Total Protein 6.1 gm/dl (6.0-8.3)
[2024-05-23 15:03] LABS: Appearance Urine Cloudy (Clear); Bilirubin Urine Negative (Negative); Blood Urine 3+ (Negative); Color Urine Brown; Glucose Urine UA Negative (Negative); Ketones Urine Negative (Negative); Leukocyte Esterase Urine Negative (Negative); Nitrite Urine Negative (Negative); Protein Urine 3+ (Negative); Specific Gravity Urine >= 1.030 (1.000-1.030); Urobilinogen Urine Negative (Negative); pH Urine 5.5 (4.5-7.5)
[2024-05-23 15:43] LABS: Basophils # (auto) 0.03 K/uL (0.00-0.20); Basophils % (auto) 0.4 %; Eosinophils # (auto) 0.11 K/uL (0.00-0.50); Eosinophils % (auto) 1.6 %; Hematocrit (blood only) 25.6 % (42.0-52.0); Hemoglobin 8.3 g/dl (14.0-18.0); Immature Granulocytes # (auto) 0.24 K/uL (0.01-0.20); Immature Granulocytes % (auto) 3.5 %; Lymphocytes # (auto) 0.82 K/uL (1.20-3.40); Lymphocytes % (auto) 11.8 %; Mean Corpuscular Hemoglobin 29.7 pg (25.0-34.0); Mean Corpuscular Hgb Conc 32.4 g/dL (32.0-36.0); Mean Corpuscular Volume 91.8 fL (80.0-100.0); Mean Platelet Volume 11.9 fL (9.4-12.4); Monocytes # (auto) 1.87 K/uL (0.11-0.59); Neutrophils # (auto) 3.85 K/uL (1.40-6.50); Neutrophils % (auto) 55.7 %; Platelet Count 121 K/uL (130-400); Platelet Estimate Decreased (Normal); RDW Coefficient of Variation 14.7 % (11.5-14.5); RDW Standard Deviation 49.1 fL (36.4-46.3); Red Blood Count 2.79 M/uL (4.70-6.10); White Blood Count 6.92 K/ul (4.8-10.8)
[2024-05-23 15:52] LABS: RBC Urine >20 /hpf (0-2); WBC Urine >50 /hpf (0-5)
[2024-05-23 15:53] LABS: Bacteria Urine None Seen (None Seen)
--- NOTE | 2024-05-23 16:15 | Emergency Department Note ---
Impression & Plan Cystitis, Hematuria, Anemia ED Provider Note NAME: LIZZETH RAPP Jr AGE: 84 SEX: M : 1940 ARRIVES VIA: Walk-In INFORMANT: Patient, ED PROVIDER(S): Paxton Taylor MD CHIEF COMPLAINT: Blood in diaper HPI: This is an 84-year-old male presenting for blood in his diaper. Patient notes that he has history of prostate enlargement and bladder normalities at baseline. He notes that he sometimes has had to have catheters in the past. Previous had a biopsy done about 1 month ago. He has noticed blood in his diaper and was not sure was coming from his rectum or his urine. He notes no new change in medications. He is currently anticoagulation. No dark or black stools to his knowledge. ROS: See above HPI for pertinent positives & negatives. A total of 10 systems reviewed and were otherwise negative. PHYSICAL EXAMINATION: General: resting comfortably in no acute distress Head: Normocephalic and atraumatic Eyes: Normal inspection, extraocular muscles intact Ear, nose, throat: Normal external exam Neck: Normal range of motion Respiratory: lungs clear to auscultation bilaterally Cardiovascular: Regular rate/rhythm, no murmur GI: soft, nontender, no guarding or rebound : Blood at the urethral meatus Extremities: nontender, moves all extremities Neuro: The patient awake and alert, appropriately conversive, no focal deficits, symmetric faces Skin: Warm, dry, and intact MEDICAL DECISION MAKING: This is a 84-year-old male presenting for blood in diaper. Patient appears to have hematuria, upon doing exam, he was dribbling clear/red-tinged urine. Consider UTI, obstruction, hematuria. History mostly urine with slight blood, not red blood and no clots are noted. Patient able to urinate freely. We have blood work and urinalysis to evaluate. -Blood work is reviewed showing a new anemia at 8.3, this is downtrending -Patient urinalysis frankly bloody, dark red blood with urine -Urine with signs of UTI as well -With patient's downtrending hemoglobin, UTI, discussed options with patient and family about discharge home with oral antibiotic and urology follow-up versus inpatient admission. -Ultimately patient request patient admission due to his persistent symptoms. -Discussed with Dr. Hernandes, for admission Differential diagnosis: Bladder outlet obstruction, cystitis, UTI ER treatment provided: See below Diagnostics interpreted by me: ECG: None Cardiac Monitoring: An order was placed for continuous cardiac monitoring. The monitor shows a rate of 71 with sinus rhythm. Laboratory studies: As stated above and show below. Imaging studies: See below. Past Med/Surg History Problem List (Updated 05/23/24 @ 19:34 by Paxton Taylor MD) Anemia (Acute) Hematuria (Acute) Cystitis (Acute) Acute kidney injury superimposed on CKD Diabetes mellitus, type 2 Hematuria History of recurrent UTIs Acute on chronic diastolic CHF (congestive heart failure) Left foot drop Acute pain of left hip (Acute) CHI (closed head injury) (Acute) Accidental fall (Acute) Cervical strain (Acute) Acute head trauma (Acute) Fall (Acute) Rotator cuff arthropathy of both shoulders Encounter for removal of nasal packing (Acute) Headache (Acute) Acute anterior epistaxis (Acute) Perianal abscess (Acute) Status post right knee replacement Right leg pain History of excision of lamina of lumbar vertebra for decompression of spinal cord L5-S1 Degenerative spondylolisthesis Lumbar back pain Mild cognitive impairment Pacemaker lead malfunction Incontinence Thrombocytopenia Chronic diastolic CHF (congestive heart failure) Generalized weakness Pneumonia Hyperkalemia Fatigue Right shoulder pain Stage III pressure ulcer of sacral region (Acute) 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 Coagulase-negative staphylococcal infection Urinary tract obstruction Sacral ulcer Encounter for pre-operative examination Bacteremia due to Gram-positive bacteria Troponin level elevated Acute hyperglycemia (Acute) Hypoxia (Acute) Aspiration pneumonia of right upper lobe (Acute) Sepsis (Acute) Diabetes mellitus Cardiomyopathy Nausea and vomiting GERD (gastroesophageal reflux disease) Hypotension Sepsis Urinary tract infection Acute respiratory failure with hypoxia Aspiration pneumonia Current use of proton pump inhibitor Lower urinary tract symptoms (LUTS) Incomplete emptying of bladder Urinary symptom or sign Systolic CHF, chronic PARDO (dyspnea on exertion) Pulsatile tinnitus of both ears R>L Sensorineural hearing loss of both ears Abnormal finding of foot H/O: stroke Hand arthritis Abdominal discomfort REASON FOR UPCOMING PROCEDURE: DISCOMFORT BLADDER OR COLON AREA / CAN'T DIFFERENTIATE WHERE FROM RESOLVED OVER LAST FEW WEEKS Need for cardiac rehabilitation intervention [facility] Dark stools S/P CABG x 3 05/2022>psu gina Atypical chest pain Cardiomyopathy follows Dr. Hollingsworth Orthostatic hypotension Pacemaker Sacral decubitus ulcer CAD (coronary artery disease) CABG x3 (05/2022) Gait instability Biochemically recurrent malignant neoplasm of prostate Mobitz type 1 second degree AV block Carotid artery stenosis Esophageal dysphagia Dysuria Ganglion, finger joint of left hand Right rotator cuff tear Dyslipidemia 1st degree AV block IVCD (intraventricular conduction defect) Status post placement of implantable loop recorder Vitamin D deficiency Stage III chronic kidney disease Spinal stenosis of lumbar region S/P knee replacement Obesity (BMI 30.0-34.9) Neuroendocrine tumor Memory loss Internal hemorrhoids Hypertension Esophageal stricture Enlarged prostate with lower urinary tract symptoms (LUTS) Disc degeneration, lumbar Diabetic peripheral neuropathy Controlled type 2 diabetes mellitus with chronic kidney disease Chronic knee pain Cerebrovascular disease Carotid artery stenosis Benign paroxysmal positional vertigo Benign colonic polyp Asthma Anemia Hemorrhagic cystitis (~03/22/23) Hypercholesteremia TIA (transient ischemic attack) (~2001) Medical History (Updated 05/23/24 @ 19:34 by Paxton Taylor MD) History of aspiration pneumonia per note 2022 Asthma Rotator cuff tear right>being tx by [place] [facility] (steroid injection) Mild cognitive disorder Kidney disease ? stage>followed by Dr. Hu Acid reflux Hx of basal cell carcinoma Depression Neuropathy CHF (congestive heart failure) Cardiomyopathy History of myocardial infarction 2021 Hyperlipidemia Hypertension Sacral ulcer Being treated by [facility] wound care>pressure ulcer "healing" BPH (benign prostatic hyperplasia) Hx: UTI (urinary tract infection) [facility] admission- sepsis 08/2023 Pacemaker Medtronic placed 05/2022>"placed d/t heart failure" Last check 04/10 JUMA/Darrick Low iron Brain TIA ? TIA vs CVA (2001)- patient reports left sided weakness with occasional "toe drop" r/t 2001 event- reason for Plavix Orthostatic hypotension Arthritis Pancreatic tumor ? tumor/cyst- yearly surveillance imaging GERD (gastroesophageal reflux disease) History of asthma History of prostate cancer Treated with radiation, no surgery Syncope Remote hx years ago, has a loop recorder in place>no recent episodes Hypothyroidism Surgical History (Updated 05/08/24 @ 00:08 by Background Daemon) History of coronary artery bypass graft 2021>3 vessels at [place] History of prostate surgery radiation tx History of urologic surgery Rezum procedure History of anesthesia reaction Trouble coming out of knee replacement + CABG History of cardiac cath 02/2022- no stents > CABG x3 History of cataract surgery right/left History of esophagogastroduodenoscopy (EGD) H/O colonoscopy with polypectomy [place] teeth removed S/P lumbar laminectomy History of loop recorder History of knee replacement Right History of tonsillectomy and adenoidectomy H/O hernia repair As toddler Hx of cholecystectomy Family History Brother Colon cancer Prostate cancer Grandfather Rectal cancer Unknown Heart disease Cancer Hypertension Mother Diabetes Congestive heart failure Stroke Grandmother (Paternal) Stroke Grandfather (Maternal) Myocardial infarction Other No family history of adverse response to anesthesia Denies family history of Ovarian cancer Breast cancer Social History Smoking Status: Former smoker Tobacco Type: Cigarettes Second Hand Exposure: No; Do You Dip or Chew Tobacco: No; Hx Alcohol Use: Yes Alcohol type: wine Hx Substance Use: No Preferred Language: Cook Islander Communication Ability: Effective Visual Impairment: No Limitations Hearing Ability: Use of Hearing Aid Seat Builder Required: No Beliefs That Will Affect Care: None marital status: Current Living Situation: Spouse current occupational status: retired current occupation: Retired How many Children do You have: 3 Feels Safe at Home: Yes Childhood Exposure to Second-Hand Smoke: Yes Diet: gluten free and lactose free caffeine: No Dental Care, Regularly: Yes Physical Activity Frequency: Daily Seatbelt Use: always Sunscreen Use: Yes Assistive Devices: Cane and Walker Allergies Allergies Allergy/AdvReac Type Severity Reaction Status Date / Time gluten Allergy Mild GI symptoms Verified 04/29/24 10:29 Penicillins Allergy Mild Rash Verified 04/29/24 10:29 Sulfa (Sulfonamide Allergy Mild Rash Verified 04/29/24 10:29 Antibiotics) cyclobenzaprine Allergy Unknown Unknown Verified 04/29/24 10:29 oxycodone AdvReac Intermediate Hallucinati Verified 04/29/24 10:29 ons Liwyixh-QBP-AwS Reductase AdvReac Intermediate Muscle Verified 04/29/24 10:29 Inhibitor weakness, [Lsjpypm-Jvp-Jzw Reductase brain fog Inhibitor] tramadol AdvReac Intermediate Hallucinati Verified 04/29/24 10:29 ons fosfomycin AdvReac Mild Dizziness Verified 04/29/24 10:29 Home Meds Home Medications Medication Instructions Recorded Confirmed folic acid 400 mcg tablet 0.4 mg PO QAM 02/22/22 05/23/24 ferrous sulfate 325 mg (65 mg 325 mg PO Q2D 12/06/22 05/23/24 iron) tablet (iron) acetaminophen 650 mg 650 mg PO Q8H PRN Pain 05/03/23 05/23/24 tablet,extended release (Arthritis Pain Relief (acetaminophen) ER) latanoprost 0.005 % eye drops 1 drp OPB HS 06/21/23 05/23/24 (Xalatan) ascorbic acid (vitamin C) 500 mg 500 mg PO Q2D 11/29/23 05/23/24 tablet (Vitamin C) cholecalciferol (vitamin D3) 50 50 mcg PO QPM 11/29/23 05/23/24 mcg (2,000 unit) tablet (Vitamin D3) escitalopram oxalate 5 mg tablet 5 mg PO QAM 04/08/24 05/23/24 pantoprazole 20 mg tablet,delayed 20 mg PO QAM 05/01/24 05/23/24 release (Protonix) tamsulosin 0.4 mg capsule (Flomax) 0.4 mg PO HS 05/01/24 05/23/24 Previous Rx's Medication Instructions Recorded blood-glucose meter (FreeStyle #1 ea 02/08/23 Lite Meter kit) lancets 28 gauge (FreeStyle #300 ea 08/05/23 Lancets) finasteride 5 mg tablet (Proscar) 5 mg PO HS #90 tabs 10/31/23 pravastatin 10 mg tablet 10 mg PO QAM #90 tabs 12/05/23 sacubitril 24 mg-valsartan 26 mg 1 tab PO BID #180 tabs 12/06/23 tablet (Entresto) clopidogrel 75 mg tablet (Plavix) 75 mg PO PM #90 tabs 02/05/24 blood sugar diagnostic (FreeStyle #100 ea 02/17/24 Lite Strips) glimepiride 2 mg tablet 2 mg PO BID #60 tabs 03/05/24 levothyroxine 50 mcg tablet 50 mcg PO QAM #90 tabs 03/24/24 (Synthroid) oxybutynin chloride 5 mg tablet 5 mg PO Q12 PRN bladder spasms #10 04/20/24 tabs phenazopyridine 200 mg tablet 200 mg PO Q8H PRN pain #10 tabs 04/20/24 (Pyridium) Results & Data (ED) Vital Signs Vital Signs - 24 hr 05/23/24 13:52 05/23/24 14:44 05/23/24 16:00 Temperature 36.5 C Temperature Source Temporal Artery Scan Pulse Rate 80 Pulse Rate [Finger] 73 71 Respiratory Rate 16 18 18 Respiratory Effort / Characteristics Non-Labored Spontaneous Respiratory Depth Normal Blood Pressure 113/65 Blood Pressure [Right Arm] 139/64 151/72 H Blood Pressure Mean 81 Blood Pressure Mean [Right Arm] 89 98 Pulse Oximetry 99 100 100 Oxygen Delivery Method Room Air Room Air Room Air Sepsis Recent Fever Within 48 Hours No Sepsis New/Unexplained Change in Mental Status No Sepsis Action Taken by Nursing No Action Required Laboratory Data 05/23/24 14:23 05/23/24 14:23 Lab Results 05/23/24 05/23/24 05/23/24 Range/Units 14:23 14:46 18:51 WBC 6.92 (4.8-10.8) K/ul RBC 2.79 L (4.70-6.10) M/uL Hgb 8.3 L (14.0-18.0) g/dl Hct 25.6 L (42.0-52.0) % MCV 91.8 (80.0-100.0) fL MCH 29.7 (25.0-34.0) pg MCHC 32.4 (32.0-36.0) g/dL RDW Std Deviation 49.1 H (36.4-46.3) fL RDW Coeff of Vinny 14.7 H (11.5-14.5) % Plt Count 121 L (130-400) K/uL MPV 11.9 (9.4-12.4) fL Immature Gran % (Auto) 3.5 % Neut % (Auto) 55.7 % Lymph % (Auto) 11.8 % Carl[place] % (Auto) 27.0 % Eos % (Auto) 1.6 % Baso % (Auto) 0.4 % Neut # (Auto) 3.85 (1.40-6.50) K/uL Lymph # (Auto) 0.82 L (1.20-3.40) K/uL Carl[place] # (Auto) 1.87 H (0.11-0.59) K/uL Eos # (Auto) 0.11 (0.00-0.50) K/uL Baso # (Auto) 0.03 (0.00-0.20) K/uL Immature Gran # (Auto) 0.24 H (0.01-0.20) K/uL Platelet Estimate Decreased L (Normal) Sodium 136 (136-145) mmol/L Potassium 4.9 (3.5-5.1) mmol/L Chloride 108 H (98-107) mmol/L Carbon Dioxide 22 (21-32) mmol/L Anion Gap 6 (3-11) BUN 57 H (6-23) mg/dl Creatinine 2.40 H (0.6-1.4) mg/dl Est Cr Clr Drug Dosing 25.3 ml/min Est GFR ( Amer) 28.1 ml/min Est GFR (Non-Af Amer) 24.2 ml/min BUN/Creatinine Ratio 23.8 H (10-20) Glucose 124 H (70-99(Fasting)) mg/dl Calcium 9.0 (8.6-10.3) mg/dl Total Bilirubin 0.3 (0.2-1.0) mg/dl Direct Bilirubin 0.1 (0-0.2) mg/dl AST 14 (13-39) U/L ALT 11 (7-52) U/L Alkaline Phosphatase 65 (34-104) U/L Total Protein 6.1 (6.0-8.3) gm/dl Albumin 3.8 (3.4-5.0) gm/dl Lipase 33 (11-82) U/L Urine Color Brown Urine Appearance Cloudy A (Clear) Urine pH 5.5 (4.5-7.5) Ur Specific [place] >= 1.030 (1.000-1.030) Urine Protein 3+ H (Negative) Urine Glucose (UA) Negative (Negative) Urine Ketones Negative (Negative) Urine Blood 3+ H (Negative) Urine Nitrite Negative (Negative) Urine Bilirubin Negative (Negative) Urine Urobilinogen Negative (Negative) Ur Leukocyte Esterase Negative (Negative) Urine RBC >20 H (0-2) /hpf Urine WBC >50 H (0-5) /hpf Ur Epithelial Cells 11-20 H (0-2) /hpf Urine Bacteria None Seen (None Seen) Crossmatch See Detail Administered Medications Discontinued Medications Ceftriaxone Sodium (Rocephin) 2,000 mg in 50 mls @ 100 mls/hr IV NOW STA Stop: 05/23/24 17:51 Last Infusion: 05/23/24 18:58 Dose: Infused Documented By: MARIA E Admin: 05/23/24 17:54 Dose: 100 mls/hr Documented By: MARIA E Discharge Plan Visit Data Chief Complaint: Hematuria Stated Complaint: POSSIBLE BLOOD IN URINE ED Provider: Paxton Taylor Discharge Problem: Cystitis, Hematuria, Anemia Forms Stand Alone Forms: My [facility] Personal Med[employer] Prescriptions Prescriptions: No Action ferrous sulfate [iron] 325 mg (65 mg iron) Tablet 325 mg PO Q2D Rx Instructions: Patient takes this with Vitamin C (DME) blood-glucose meter [FreeStyle Lite Meter] Kit See Rx Instructions .Route Qty: 1 0RF Rx Instructions: Test blood sugar three times daily DX:E11.9 (DME) lancets [FreeStyle Lancets] 28 gauge misc See Rx Instructions .Route Qty: 300 3RF Rx Instructions: TEST THREE TIMES DAILY. DX: E11.9 finasteride [Proscar] 5 mg tablet 5 mg PO HS Qty: 90 3RF pravastatin 10 mg tablet 10 mg PO QAM Qty: 90 1RF Rx Instructions: This is listed as an allergy, but spouse states that patient is currently taking this medication. Entresto 24-26 mg tablet 1 tab PO BID Qty: 180 3RF Rx Instructions: filled 04/05/24 for 30 day supply clopidogrel [Plavix] 75 mg tablet 75 mg PO PM Qty: 90 3RF Patient Comments: on hold until after surgery (DME) FreeStyle Lite Strips Strip See Rx Instructions .Route Qty: 100 3RF Rx Instructions: test once daily glimepiride 2 mg tablet 2 mg PO BID Qty: 60 5RF levothyroxine [Synthroid] 50 mcg tablet 50 mcg PO QAM Qty: 90 3RF folic acid 400 mcg tablet 0.4 mg PO QAM Patient Comments: NOT IN STOCK AT PHARMACY , CURRENTLY OUT OF acetaminophen [Arthritis Pain Relief (acetam)] 650 mg tablet extended release 650 mg PO Q8H PRN (Reason: Pain) latanoprost [Xalatan] 0.005 % drops 1 drp OPB HS Rx Instructions: filled 04/10/24 for 25 day supply cholecalciferol (vitamin D3) [Vitamin D3] 50 mcg (2,000 unit) Tablet 50 mcg PO QPM ascorbic acid (vitamin C) [Vitamin C] 500 mg Tablet 500 mg PO Q2D Rx Instructions: Patient takes this with Ferrous Sulfate pantoprazole [Protonix] 20 mg tablet,delayed release (DR/EC) 20 mg PO QAM tamsulosin [Flomax] 0.4 mg capsule 0.4 mg PO HS escitalopram oxalate 5 mg Tablet 5 mg PO QAM phenazopyridine [Pyridium] 200 mg tablet 200 mg PO Q8H PRN (Reason: pain) Qty: 10 0RF Rx Instructions: filled 04/20/24 for 3 day supply oxybutynin chloride 5 mg tablet 5 mg PO Q12 PRN (Reason: bladder spasms) Qty: 10 0RF Rx Instructions: filled 04/20/24 for 5 day supply Referrals Referrals: Dick Adams MD [Primary Care Provider] -
--- NOTE | 2024-05-23 17:32 | History & Physical Report ---
Date of Service May 23, 2024 Assessment & Plan (1) Anemia: Plan: Patient found blood in his Depends briefs on the evening of 05/22 and morning of 05/23 He initially thought it could be due to hematuria or hemorrhoids Hgb 8.3 on arrival; MCV WNL Hold Plavix Patient takes Plavix for history of TIA in 2001 No heart stents, but hx of triple bypass Blood form consent obtained; 1u pRBCs ordered, held Trend H&H q4h (2) Hematuria: Plan: UA 3+ blood; patient endorses some urinary retention Hx of prostate cancer s/p TURP Hx of kidney stone 40y ago; however, he currently denies flank, lower back, abdominal, or suprapubic pain Urology consulted Bladder scan QS Treat anemia (as above) (3) History of recurrent UTIs: Plan: Rocephin 2000 mg IV x 1 given in the ED Daughter is concerned, as patient was septic last fall due to a UTI Prior cultures have grown coag negative Staphylococcus, susceptible to Vanco/Dapto UA is dark brown and positive for blood, but no bacteria seen Will defer further antibiotics at this time Follow UCx, and if patient develops any infectious symptoms would recommend covering with broad-spectrum antibiotics (4) Acute kidney injury superimposed on CKD: Plan: Mild; creatinine 2.40 (baseline might be around 1.7); ?Postrenal Avoid nephrotoxic agents Hold Entresto (5) Diabetes mellitus, type 2: Plan: Last A1c at 7.3% on 05/02/2024 Hold glimepiride SSI; with target BSG range 110-140mg/dL, CF 50, carb ratio 15 T2DM diet BSG ACHS Adjust regimen as needed (6) Thrombocytopenia: Plan: Mild; platelet count 121 Hold Plavix and chemical DVT PPx (as above) (7) S/P TURP: Plan Disposition: Admit to [facility] telemetry Full code T2DM diet VTE PPx: SCDs; hold chemical DVT PPx in the setting of gross hematuria History of Present Illness Chief Complaint: Hematuria Primary Care Provider: Dick Adams MD Sam is an 84-year-old male with PMH of CVA, TIA, T2DM, BPH, neuroendocrine tumor, first-degree AV block, CAD s/p CABG x 3, cardiomyopathy, recurrent UTIs, GERD, and diastolic CHF. He presented for bleeding in his Depends briefs on the evening of 05/22 and morning of 05/23. Patient is unsure if it was due to his hemorrhoids or from hematuria. He denies any abdominal pain, ruel blood in the stool, or melena. No history of GI bleeds. Patient currently takes Plavix for a TIA that occurred back in 2001. He reports he has never been on Eliquis, Xarelto, or Coumadin. He does have a history of hemorrhoids, but is unsure if they have been acting up. He believes he had 1 blood transfusion many years back. Patient reports that he took all his regular morning medications today; no recent change in medications. He does note that he has been coughing due to a recent cold, and taking Mucinex. Patient's daughter (Kelly) is at the bedside and helps to provide history. She reports that he has had recurrent UTIs, including one that led to sepsis back in August 2023. Patient is hypertensive at 151/72 at time of admission; vitals otherwise stable. ED course: Ceftriaxone 2000 mg IV ROS: Patient endorses CHAPPELL (chronic), occasional PARDO, dry cough (which patient attributes to recent cold), intermittent burning with urination, dysuria, urinary incontinence, difficulty voiding, blood in urine. Patient denies fever, chills, night-sweats, dizziness, lightheadedness, chest pain, SOB at rest, abdominal pain, N/V/D, melena, bright red blood in stool, saddle anesthesia, or bowel incontinence. Allergies Allergy/AdvReac Type Severity Reaction Status Date / Time gluten Allergy Mild GI symptoms Verified 04/29/24 10:29 Penicillins Allergy Mild Rash Verified 04/29/24 10:29 Sulfa (Sulfonamide Allergy Mild Rash Verified 04/29/24 10:29 Antibiotics) cyclobenzaprine Allergy Unknown Unknown Verified 04/29/24 10:29 oxycodone AdvReac Intermediate Hallucinati Verified 04/29/24 10:29 ons Bjfpvhq-OKN-OhZ Reductase AdvReac Intermediate Muscle Verified 04/29/24 10:29 Inhibitor weakness, [Swqjqgm-Bum-Plc Reductase brain fog Inhibitor] tramadol AdvReac Intermediate Hallucinati Verified 04/29/24 10:29 ons fosfomycin AdvReac Mild Dizziness Verified 04/29/24 10:29 Home Medications Medication Instructions Recorded Confirmed Type folic acid 400 mcg tablet 0.4 mg PO QAM 02/22/22 05/23/24 History ferrous sulfate 325 mg (65 mg 325 mg PO Q2D 12/06/22 05/23/24 History iron) tablet (iron) blood-glucose meter (FreeStyle #1 ea 02/08/23 05/01/24 Rx Lite Meter kit) acetaminophen 650 mg 650 mg PO Q8H PRN Pain 05/03/23 05/23/24 History tablet,extended release (Arthritis Pain Relief (acetaminophen) ER) latanoprost 0.005 % eye drops 1 drp OPB HS 06/21/23 05/23/24 History (Xalatan) lancets 28 gauge (FreeStyle #300 ea 08/05/23 05/01/24 Rx Lancets) finasteride 5 mg tablet (Proscar) 5 mg PO HS #90 tabs 10/31/23 05/23/24 Rx ascorbic acid (vitamin C) 500 mg 500 mg PO Q2D 11/29/23 05/23/24 History tablet (Vitamin C) cholecalciferol (vitamin D3) 50 50 mcg PO QPM 11/29/23 05/23/24 History mcg (2,000 unit) tablet (Vitamin D3) pravastatin 10 mg tablet 10 mg PO QAM #90 tabs 12/05/23 05/23/24 Rx sacubitril 24 mg-valsartan 26 mg 1 tab PO BID #180 tabs 12/06/23 05/23/24 Rx tablet (Entresto) clopidogrel 75 mg tablet (Plavix) 75 mg PO PM #90 tabs 02/05/24 05/23/24 Rx blood sugar diagnostic (FreeStyle #100 ea 02/17/24 05/01/24 Rx Lite Strips) glimepiride 2 mg tablet 2 mg PO BID #60 tabs 03/05/24 05/23/24 Rx levothyroxine 50 mcg tablet 50 mcg PO QAM #90 tabs 03/24/24 05/23/24 Rx (Synthroid) escitalopram oxalate 5 mg tablet 5 mg PO QAM 04/08/24 05/23/24 History oxybutynin chloride 5 mg tablet 5 mg PO Q12 PRN bladder spasms #10 04/20/24 05/23/24 Rx tabs phenazopyridine 200 mg tablet 200 mg PO Q8H PRN pain #10 tabs 04/20/24 05/23/24 Rx (Pyridium) pantoprazole 20 mg tablet,delayed 20 mg PO QAM 05/01/24 05/23/24 History release (Protonix) tamsulosin 0.4 mg capsule (Flomax) 0.4 mg PO HS 05/01/24 05/23/24 History Past Med/Surg History Problem List (Updated 05/23/24 @ 18:57 by Jared Hinkle PA-C) Acute kidney injury superimposed on CKD Diabetes mellitus, type 2 Hematuria History of recurrent UTIs Acute on chronic diastolic CHF (congestive heart failure) Left foot drop Acute pain of left hip (Acute) CHI (closed head injury) (Acute) Accidental fall (Acute) Cervical strain (Acute) Acute head trauma (Acute) Fall (Acute) Rotator cuff arthropathy of both shoulders Encounter for removal of nasal packing (Acute) Headache (Acute) Acute anterior epistaxis (Acute) Perianal abscess (Acute) Status post right knee replacement Right leg pain History of excision of lamina of lumbar vertebra for decompression of spinal c ord L5-S1 Degenerative spondylolisthesis Lumbar back pain Mild cognitive impairment Pacemaker lead malfunction Incontinence Thrombocytopenia Chronic diastolic CHF (congestive heart failure) Generalized weakness Pneumonia Hyperkalemia Fatigue Right shoulder pain Stage III pressure ulcer of sacral region (Acute) 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 Coagulase-negative staphylococcal infection Urinary tract obstruction Sacral ulcer Encounter for pre-operative examination Bacteremia due to Gram-positive bacteria Troponin level elevated Acute hyperglycemia (Acute) Hypoxia (Acute) Aspiration pneumonia of right upper lobe (Acute) Sepsis (Acute) Diabetes mellitus Cardiomyopathy Nausea and vomiting GERD (gastroesophageal reflux disease) Hypotension Sepsis Urinary tract infection Acute respiratory failure with hypoxia Aspiration pneumonia Current use of proton pump inhibitor Lower urinary tract symptoms (LUTS) Incomplete emptying of bladder Urinary symptom or sign Systolic CHF, chronic PARDO (dyspnea on exertion) Pulsatile tinnitus of both ears R>L Sensorineural hearing loss of both ears Abnormal finding of foot H/O: stroke Hand arthritis Abdominal discomfort REASON FOR UPCOMING PROCEDURE: DISCOMFORT BLADDER OR COLON AREA / CAN'T DIFFERENTIATE WHERE FROM RESOLVED OVER LAST FEW WEEKS Need for cardiac rehabilitation intervention [facility] [place] Dark stools S/P CABG x 3 05/2022>psu gina Atypical chest pain Cardiomyopathy follows Dr. Hollingsworth Orthostatic hypotension Pacemaker Sacral decubitus ulcer CAD (coronary artery disease) CABG x3 (05/2022) Gait instability Biochemically recurrent malignant neoplasm of prostate Mobitz type 1 second degree AV block Carotid artery stenosis Esophageal dysphagia Dysuria Ganglion, finger joint of left hand Right rotator cuff tear Dyslipidemia 1st degree AV block IVCD (intraventricular conduction defect) Status post placement of implantable loop recorder Vitamin D deficiency Stage III chronic kidney disease Spinal stenosis of lumbar region S/P knee replacement Obesity (BMI 30.0-34.9) Neuroendocrine tumor Memory loss Internal hemorrhoids Hypertension Esophageal stricture Enlarged prostate with lower urinary tract symptoms (LUTS) Disc degeneration, lumbar Diabetic peripheral neuropathy Controlled type 2 diabetes mellitus with chronic kidney disease Chronic knee pain Cerebrovascular disease Carotid artery stenosis Benign paroxysmal positional vertigo Benign colonic polyp Asthma Anemia Hemorrhagic cystitis (~03/22/23) Hypercholesteremia TIA (transient ischemic attack) (~2001) Medical History (Updated 05/23/24 @ 18:57 by Jared Hinkle PA-C) History of aspiration pneumonia per note 2022 Asthma Rotator cuff tear right>being tx by [facility] (steroid injection) Mild cognitive disorder Kidney disease ? stage>followed by Dr. Hu Acid reflux Hx of basal cell carcinoma Depression Neuropathy CHF (congestive heart failure) Cardiomyopathy History of myocardial infarction 2021 Hyperlipidemia Hypertension Sacral ulcer Being treated by [facility] wound care>pressure ulcer "healing" BPH (benign prostatic hyperplasia) Hx: UTI (urinary tract infection) [facility] admission- sepsis 08/2023 Pacemaker Medtronic placed 05/2022>"placed d/t heart failure" Last check 04/10 JUMA/Darrick Low iron Brain TIA ? TIA vs CVA (2001)- patient reports left sided weakness with occasional "toe drop" r/t 2001 event- reason for Plavix Orthostatic hypotension Arthritis Pancreatic tumor ? tumor/cyst- yearly surveillance imaging GERD (gastroesophageal reflux disease) History of asthma History of prostate cancer Treated with radiation, no surgery Syncope Remote hx years ago, has a loop recorder in place>no recent episodes Hypothyroidism Surgical History (Updated 05/08/24 @ 00:08 by Background Daemon) History of coronary artery bypass graft 2021>3 vessels at [place] History of prostate surgery radiation tx History of urologic surgery Rezum procedure History of anesthesia reaction Trouble coming out of knee replacement + CABG History of cardiac cath 02/2022- no stents > CABG x3 History of cataract surgery right/left History of esophagogastroduodenoscopy (EGD) H/O colonoscopy with polypectomy [place] teeth removed S/P lumbar laminectomy History of loop recorder History of knee replacement Right History of tonsillectomy and adenoidectomy H/O hernia repair As toddler Hx of cholecystectomy Family History Brother Colon cancer Prostate cancer Grandfather Rectal cancer Unknown Heart disease Cancer Hypertension Mother Diabetes Congestive heart failure Stroke Grandmother (Paternal) Stroke Grandfather (Maternal) Myocardial infarction Other No family history of adverse response to anesthesia Denies family history of Ovarian cancer Breast cancer Social History Smoking Status: Former smoker Tobacco Type: Cigarettes Second Hand Exposure: No; Do You Dip or Chew Tobacco: No; Hx Alcohol Use: Yes Alcohol type: wine Hx Substance Use: No Preferred Language: Belarusian Communication Ability: Effective Visual Impairment: No Limitations Hearing Ability: Use of Hearing Aid Scientologist Required: No Beliefs That Will Affect Care: None marital status: Current Living Situation: Spouse current occupational status: retired current occupation: Retired How many Children do You have: 3 Feels Safe at Home: Yes Childhood Exposure to Second-Hand Smoke: Yes Diet: gluten free and lactose free caffeine: No Dental Care, Regularly: Yes Physical Activity Frequency: Daily Seatbelt Use: always Sunscreen Use: Yes Assistive Devices: Cane and Walker Review of Systems Review of Systems: See HPI above Physical Exam Physical Exam: General: no acute distress; pleasant affect; non-toxic appearing; well- nourished; cooperative; SpO2 100% on RA HEENT: normocephalic, atraumatic; no scleral icterus; PERRLA w/ EOMs intact; moist mucus membrane; vision and hearing grossly intact Neck: supple; no lymphadenopathy; trachea midline Skin: warm, dry without signs of tenting; no cyanosis or pallor; no rashes, lesions, or erythema noted CV: chest wall NTP; RRR; S1/S2 normal; 3/6 systolic ejection murmur auscultated at the second ICS MCL; pulses intact and symmetric at radial, DP, and PT Lungs: no acute respiratory distress; symmetrical chest wall expansion; clear breath sounds across all lung maddox w/o adventitious sounds; no wheezing ABD: Soft, NTP; negative suprapubic tenderness; purple/greenish bruising on the lower quadrants bilaterally; BS present; no rebound/guarding; no distention MSK: no tics or fasciculations; no edema noted in the LEs b/l, nonerythematous Neuro: A&Ox3; normal mood and affect; fluent speech; no focal deficits; mildly diminished sensation in the left lower extremity when compared to the right Results & Data Results & Data Vital Signs (Past 12 Hours) Vital Signs Temp Pulse Pulse Resp BP BP Pulse Ox 05/23/24 16:00 71 18 151/72 H 100 05/23/24 14:44 73 18 139/64 100 05/23/24 13:52 36.5 C 80 16 113/65 99 O2 Del Method 05/23/24 16:00 Room Air 05/23/24 14:44 Room Air 05/23/24 13:52 Room Air Laboratory Results Abnormal lab results 05/23/24 05/23/24 Range/Units 14:23 14:46 RBC 2.79 L (4.70-6.10) M/uL Hgb 8.3 L (14.0-18.0) g/dl Hct 25.6 L (42.0-52.0) % RDW Std Deviation 49.1 H (36.4-46.3) fL RDW Coeff of Vinny 14.7 H (11.5-14.5) % Plt Count 121 L (130-400) K/uL Lymph # (Auto) 0.82 L (1.20-3.40) K/uL [place] # (Auto) 1.87 H (0.11-0.59) K/uL Immature Gran # (Auto) 0.24 H (0.01-0.20) K/uL Platelet Estimate Decreased L (Normal) Chloride 108 H (98-107) mmol/L BUN 57 H (6-23) mg/dl Creatinine 2.40 H (0.6-1.4) mg/dl BUN/Creatinine Ratio 23.8 H (10-20) Glucose 124 H (70-99(Fasting)) mg/dl Urine Appearance Cloudy A (Clear) Urine Protein 3+ H (Negative) Urine Blood 3+ H (Negative) Urine RBC >20 H (0-2) /hpf Urine WBC >50 H (0-5) /hpf Ur Epithelial Cells 11-20 H (0-2) /hpf Code Status & VTE Plan Code Status Full code VTE Prophylaxis Plan VTE Prophylaxis will be ordered: Yes Supervising Physician Co-Signing Physician Notes Patient seen and examined, chart reviewed, case discussed with Jared Hinkle PA-C and I agree with the assessment and plan as above except as otherwise noted Labs and images reviewed 84-year-old male with a history of prostate cancer s/p TURP, urothelial carcinoma, left foot drop chronically, falls and weakness, type II DM, and diastolic CHF who presents to the ER with acute on chronic anemia and hematuria. He has had increased weakness and falls without head strike. Hemoglobin 8.3 from 9.3, and without obvious signs of hypotension or infection at time of ER assessment and was initially offered return home however both due to his hematuria, bleeding, and increased weakness and falls family did not feel comfortable with this and was recommended for admission. Did receive 1 dose of empiric Rocephin for potentially infected UA, on review there is no bacteria/leukocyte esterase/nitrates present. 3+ blood is present. No leukocytosis. Patient admitted with hemoglobin checks every 8 x 3 then daily, PT OT, and gentle rehydration. He does appear volume contracted with baseline creatinine around 1.72.3, 2.4 on admission. Elevated BUN/creatinine ratio. Given underlying history of heart failure cautious fluids given, 500 cc at maintenance. No oxygen requirement and lungs are clear on assessment. Patient is on Plavix with history of CAD CABG x 3 and IVCD placement but no history of stents. Plavix temporarily held for acute bleeding PT/OT consulted. Bladder scan every shift, irrigate if retaining. No fever, chills, sweats. Does have a feeling of pressure in his bladder, bladder scan in ER is pending. Agree with assessment and management above PG Care Time/CCT Total # of Minutes Spent Total Time Spent with Patient: Total time spent is greater than 50% in coordination of care (as documented) at patient's floor/unit and/or counseling patient: Coding [place] [address] INT INP/OBS CARE 3/75MIN Patient Type Established History Comprehensive Exam Comprehensive Medical Decision Making High Complexity Diagnoses Anemia D64.9 Hematuria R31.9 History of recurrent UTIs Z87.440 Acute kidney injury superimposed on CKD N17.9; N18.9 Diabetes mellitus, type 2 E11.9 Thrombocytopenia D69.6 S/P TURP Z90.79
[2024-05-23] MEDS: cefTRIAXone SODIUM 2,000 MG/50 ML BAG IV STA (17:54)
[2024-05-23] MEDS ORDERED: SODIUM CHLORIDE 0.9% 250 ML IV PRN (18:25)
--- NOTE | 2024-05-23 20:04 | Urology Consultation ---
Date of Consultation May 23, 2024 Assessment & Plan (1) Hematuria: Patient has been admitted on the hospital service. From a urologic perspective we recommend the following: It appears as though the patient may be suffering from a urinary tract infection. This coupled with the fact that the patient takes Plavix could explain the patient's hematuria. In addition the patient does have a history of radiation to his prostate in the past raising the possibility of also radiation cystitis. Patient is currently being treated for urinary tract infectionWith Rocephin. Antibiotic should be continued and can be tailored based on culture results Serial bladder scans to be followed and if the patient is retaining significant mount of urine consideration should be given to placing a Interiano catheter to promote maximal urinary drainage The patient does take Plavix as an outpatient and will be preferable to hold this in the setting of hematuria. The primary service has already placed this medication on hold. Additional antiplatelets and anticoagulants should also be held in the setting of hematuria Serial labs should be followed The patient does not have any flank or abdominal pain suggestive of a kidney stone. If any such pain should develop in the interim while the patient is in the hospital consideration be given to performing appropriate imaging to evaluate for such a condition. If patient's hematuria fails to clear with the above noted measures consideration can be given to performing a cystoscopic evaluation. History of Present Illness Reason for Consultation: Hematuria History of Present Illness This is a 84-year-old male who presented to the emergency department at [facility] secondary to concern for hematuria. The patient's daughter was present at the bedside who helps supplement the history. According to the patient and his daughter he has had approximately 2 days of hematuria. They note that there is been no visible blood clots in his urine. He does report some intermittent dysuria but he specifically denies any fevers, shakes, or chills. The patient does note that when he urinates he feels though he sometimes cannot empty his bladder completely. He denies any back or flank pain. Of note, the patient takes Plavix with his most recent dose being taken on 05/22/2020 6 in the evening. The patient and his daughter note that he has had intermittent periods of time in the recent past when he has had catheters in place secondary to issues with urinary retention in the past, but currently does not have a Interiano catheter in place the patient does have a history of adenocarcinoma of the prostate for which he underwent radiation therapy in the . 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 He does note that he follows locally with Dr. Sandra of [facility] physician group urology. He notes Dr. Sandra has performed multiple cystoscopies. His records were reviewed and the most recent procedure intervention performed Dr. Sandra was on 04/20/2024 where the patient underwent a cystoscopy with urethral biopsy and urethral dilatation as well as transurethral section of the prostate mass and bladder biopsies. The patient also underwent fulguration of the bladder neck at that time. Since arrival to the emergency department the patient has had labs which independent reviewed. A CBC revealed white blood cell count was normal. His hemoglobin and hematocrit were 8.3 and 25.6. Platelet count is 121,000. Chemistry profile showed sodium and potassium were normal. His BUN and creatinine were 57 and 2.4. (Review of records show baseline creatinine runs anywhere from 1.7-2.3). Urinalysis was performed and showed cloudy urine which was negative for nitrites but had pyuria with greater than 50 white blood cells per high-power field. No bacteria was noted on this study. The patient has had a urine culture sent this admission. At the time my interview the patient was resting comfortably in bed and he was in no distress. Allergies Allergy/AdvReac Type Severity Reaction Status Date / Time gluten Allergy Mild GI symptoms Verified 04/29/24 10:29 Penicillins Allergy Mild Rash Verified 04/29/24 10:29 Sulfa (Sulfonamide Allergy Mild Rash Verified 04/29/24 10:29 Antibiotics) cyclobenzaprine Allergy Unknown Unknown Verified 04/29/24 10:29 oxycodone AdvReac Intermediate Hallucinati Verified 04/29/24 10:29 ons Kynlepm-OPP-BfM Reductase AdvReac Intermediate Muscle Verified 04/29/24 10:29 Inhibitor weakness, [Vkukvey-Xxo-Phj Reductase brain fog Inhibitor] tramadol AdvReac Intermediate Hallucinati Verified 04/29/24 10:29 ons fosfomycin AdvReac Mild Dizziness Verified 04/29/24 10:29 Home Medications Medication Instructions Recorded Confirmed Type folic acid 400 mcg tablet 0.4 mg PO QAM 02/22/22 05/23/24 History ferrous sulfate 325 mg (65 mg 325 mg PO Q2D 12/06/22 05/23/24 History iron) tablet (iron) blood-glucose meter (FreeStyle #1 ea 02/08/23 05/01/24 Rx Lite Meter kit) acetaminophen 650 mg 650 mg PO Q8H PRN Pain 05/03/23 05/23/24 History tablet,extended release (Arthritis Pain Relief (acetaminophen) ER) latanoprost 0.005 % eye drops 1 drp OPB HS 06/21/23 05/23/24 History (Xalatan) lancets 28 gauge (FreeStyle #300 ea 08/05/23 05/01/24 Rx Lancets) finasteride 5 mg tablet (Proscar) 5 mg PO HS #90 tabs 10/31/23 05/23/24 Rx ascorbic acid (vitamin C) 500 mg 500 mg PO Q2D 11/29/23 05/23/24 History tablet (Vitamin C) cholecalciferol (vitamin D3) 50 50 mcg PO QPM 11/29/23 05/23/24 History mcg (2,000 unit) tablet (Vitamin D3) pravastatin 10 mg tablet 10 mg PO QAM #90 tabs 12/05/23 05/23/24 Rx sacubitril 24 mg-valsartan 26 mg 1 tab PO BID #180 tabs 12/06/23 05/23/24 Rx tablet (Entresto) clopidogrel 75 mg tablet (Plavix) 75 mg PO PM #90 tabs 02/05/24 05/23/24 Rx blood sugar diagnostic (FreeStyle #100 ea 02/17/24 05/01/24 Rx Lite Strips) glimepiride 2 mg tablet 2 mg PO BID #60 tabs 03/05/24 05/23/24 Rx levothyroxine 50 mcg tablet 50 mcg PO QAM #90 tabs 03/24/24 05/23/24 Rx (Synthroid) escitalopram oxalate 5 mg tablet 5 mg PO QAM 04/08/24 05/23/24 History oxybutynin chloride 5 mg tablet 5 mg PO Q12 PRN bladder spasms #10 04/20/24 05/23/24 Rx tabs phenazopyridine 200 mg tablet 200 mg PO Q8H PRN pain #10 tabs 04/20/24 05/23/24 Rx (Pyridium) pantoprazole 20 mg tablet,delayed 20 mg PO QAM 05/01/24 05/23/24 History release (Protonix) tamsulosin 0.4 mg capsule (Flomax) 0.4 mg PO HS 05/01/24 05/23/24 History Patient History Medical History History of aspiration pneumonia per note 2022 Asthma Rotator cuff tear right>being tx by [place] [facility] (steroid injection) Mild cognitive disorder Kidney disease ? stage>followed by Dr. Hu Acid reflux Hx of basal cell carcinoma Depression Neuropathy CHF (congestive heart failure) Cardiomyopathy History of myocardial infarction 2021 Hyperlipidemia Hypertension Sacral ulcer Being treated by [facility] wound care>pressure ulcer "healing" BPH (benign prostatic hyperplasia) Hx: UTI (urinary tract infection) [facility] admission- sepsis 08/2023 Pacemaker Medtronic placed 05/2022>"placed d/t heart failure" Last check 04/10 JUMA/Darrick Low iron Brain TIA ? TIA vs CVA (2001)- patient reports left sided weakness with occasional "toe drop" r/t 2001 event- reason for Plavix Orthostatic hypotension Arthritis Pancreatic tumor ? tumor/cyst- yearly surveillance imaging GERD (gastroesophageal reflux disease) History of asthma History of prostate cancer Treated with radiation, no surgery Syncope Remote hx years ago, has a loop recorder in place>no recent episodes Hypothyroidism Surgical History History of coronary artery bypass graft 2021>3 vessels at [place] History of prostate surgery radiation tx History of urologic surgery Rezum procedure History of anesthesia reaction Trouble coming out of knee replacement + CABG History of cardiac cath 02/2022- no stents > CABG x3 History of cataract surgery right/left History of esophagogastroduodenoscopy (EGD) H/O colonoscopy with polypectomy [place] teeth removed S/P lumbar laminectomy History of loop recorder History of knee replacement Right History of tonsillectomy and adenoidectomy H/O hernia repair As toddler Hx of cholecystectomy Family History Brother Colon cancer Prostate cancer Grandfather Rectal cancer Unknown Heart disease Cancer Hypertension Mother Diabetes Congestive heart failure Stroke Grandmother (Paternal) Stroke Grandfather (Maternal) Myocardial infarction Other No family history of adverse response to anesthesia Denies family history of Ovarian cancer Breast cancer Social History Smoking Status: Former smoker Tobacco Type: Cigarettes Second Hand Exposure: No; Do You Dip or Chew Tobacco: No; Hx Alcohol Use: Yes Alcohol type: wine Hx Substance Use: No Preferred Language: Ukrainian Communication Ability: Effective Visual Impairment: No Limitations Hearing Ability: Use of Hearing Aid 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: No Beliefs That Will Affect Care: None marital status: Current Living Situation: Spouse current occupational status: retired current occupation: Retired How many Children do You have: 3 Feels Safe at Home: Yes Childhood Exposure to Second-Hand Smoke: Yes Diet: gluten free and lactose free caffeine: No Dental Care, Regularly: Yes Physical Activity Frequency: Daily Seatbelt Use: always Sunscreen Use: Yes Assistive Devices: Cane and Walker Review of Systems Review of Systems: All systems reviewed & are unremarkable except as noted in HPI & below Physical Exam Constitutional: WD/WN, vitals as above Eyes: no conjunctival abnormality ENMT: Ears: no hearing impairment and no external ear abnormality Mouth: no oropharynx abnormality Neck: trachea midline Respiratory: normal respiratory effort; no respiratory distress and no labored breathing Cardiovascular: Rate/Rhythm: regular rate and regular rhythm Gastrointestinal (Abdomen): Abdomen is soft and nondistended. It is nontender to palpation, specifically no tenderness to palpation in the suprapubic region. Musculoskeletal: No calf tenderness Skin: no rashes Neurologic: moves all extremities Psychiatric: A+Ox3, euthymic affect Genitourinary: No CVA tenderness with percussion noted bilaterally Results & Data Vital Signs (Past 12 Hours) Vital Signs Temp Pulse Pulse Resp BP BP Pulse Ox 05/23/24 16:00 71 18 151/72 H 100 05/23/24 14:44 73 18 139/64 100 05/23/24 13:52 36.5 C 80 16 113/65 99 O2 Del Method 05/23/24 16:00 Room Air 05/23/24 14:44 Room Air 05/23/24 13:52 Room Air PG Care Time/CCT Total # of Minutes Spent Total Time Spent with Patient: Total time spent is greater than 50% in coordination of care (as documented) at patient's floor/unit and/or counseling patient: Coding Level of Care Code 75434 INT INP/OBS CARE 3/75MIN Diagnoses Hematuria R31.9
[2024-05-23 20:43] LABS: Hematocrit (blood only) 24.1 % (42.0-52.0)
[2024-05-24 00:32] LABS: Hematocrit (blood only) 25.2 % (42.0-52.0); Hemoglobin 8.3 g/dl (14.0-18.0)
[2024-05-24] MEDS ORDERED: GLUCOSE 40% GEL 15 GM TUBE PO PRN (01:47)
[2024-05-24] MEDS ORDERED: GLUCOSE 10 TAB/TUBE PO PRN (01:47)
[2024-05-24] MEDS ORDERED: CARBOHYDRATES FOR HYPOGLYCEMIA PO PRN (01:47)
[2024-05-24] MEDS ORDERED: GLUCAGON FOR INJ 1 MG VIAL SQ PRN (01:47)
[2024-05-24] MEDS ORDERED: DEXTROSE 50% 50 ML SYRINGE IV PRN (01:47)
[2024-05-24] MEDS: INSULIN ASPART PER UNIT CHARGE SC SCH (02:40)
[2024-05-24] MEDS: FINASTERIDE 5 MG TAB PO SCH (02:44)
[2024-05-24] MEDS: TAMSULOSIN HCL 0.4 MG CAP PO SCH (02:44)
[2024-05-24] MEDS: LEVOTHYROXINE SODIUM 50 MCG TABLET PO SCH (05:18)
[2024-05-24 08:16] LABS: Basophils # (auto) 0.04 K/uL (0.00-0.20); Basophils % (auto) 0.6 %; Eosinophils # (auto) 0.08 K/uL (0.00-0.50); Eosinophils % (auto) 1.1 %; Hematocrit (blood only) 26.8 % (42.0-52.0); Hemoglobin 8.7 g/dl (14.0-18.0); Immature Granulocytes # (auto) 0.13 K/uL (0.01-0.20); Immature Granulocytes % (auto) 1.9 %; Lymphocytes # (auto) 0.64 K/uL (1.20-3.40); Lymphocytes % (auto) 9.2 %; Mean Corpuscular Hemoglobin 29.6 pg (25.0-34.0); Mean Corpuscular Hgb Conc 32.5 g/dL (32.0-36.0); Mean Corpuscular Volume 91.2 fL (80.0-100.0); Mean Platelet Volume 11.4 fL (9.4-12.4); Monocytes # (auto) 1.81 K/uL (0.11-0.59); Neutrophils # (auto) 4.27 K/uL (1.40-6.50); Neutrophils % (auto) 61.2 %; Platelet Count 131 K/uL (130-400); RDW Coefficient of Variation 14.7 % (11.5-14.5); RDW Standard Deviation 48.8 fL (36.4-46.3); Red Blood Count 2.94 M/uL (4.70-6.10); White Blood Count 6.97 K/ul (4.8-10.8)
[2024-05-24 08:39] LABS: BUN Creatinine Ratio 26.1 (10-20); Creatinine Clr Calc Pharmacy 29.3 ml/min; Est GFR (African American) 37.7 ml/min; Est GFR (Non-African American) 32.5 ml/min; Potassium 4.6 mmol/L (3.5-5.1)
[2024-05-24] MEDS: ESCITALOPRAM OXALATE 10 MG TAB PO SCH (08:52)
[2024-05-24] MEDS: PRAVASTATIN SOD 10 MG TAB PO SCH (08:52)
[2024-05-24] MEDS: PHENAZOPYRIDINE HCL 200 MG TAB PO PRN (08:52)
[2024-05-24] MEDS: FERROUS SULFATE 325 MG TAB PO SCH (08:52)
[2024-05-24] MEDS: oxyBUTYnin chloride 5 MG TAB PO PRN (08:53)
--- NOTE | 2024-05-24 08:56 | Urology Progress Note ---
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 Sandra has been his primary urological surgeon, I will likely defer further decision making for next scopes, interventions to him He does also follow with Dr. Pinto from oncology Admission and Anticipated Discharge Date Admission Date: May 23, 2024 Subjective 84-year-old male with a history of urothelial carcinoma with squamous differentiation who presented with hematuria yesterday He is voiding adequately although he did have blood throughout the night last night His hemoglobin is remaining stable He has no white count His urine testing does not seem consistent with infection Subjectively he reports that he feels relatively well He does not have great urinary control but this is not a new issue Physical Exam Physical Exam: Comfortable appearing Abdomen soft No urine to examine today Results & Data Vital Signs (Past 12 Hours) Vital Signs Temp Pulse Pulse Resp BP BP Pulse Ox 05/24/24 07:45 36.5 C 76 18 193/73 H 99 05/24/24 03:22 36.5 C 65 18 172/75 H 100 05/24/24 01:50 67 05/24/24 01:47 36.3 C L 68 18 180/65 H 98 05/24/24 01:16 62 14 176/84 H 97 05/23/24 22:00 77 16 116/79 96 05/23/24 21:40 64 O2 Del Method 05/24/24 07:45 Room Air 05/24/24 03:22 Room Air 05/24/24 01:50 05/24/24 01:47 Room Air 05/24/24 01:16 Room Air 05/23/24 22:00 Room Air 05/23/24 21:40 PG Care Time/CCT Total # of Minutes Spent Total Time Spent with Patient: Total time spent is greater than 50% in coordination of care (as documented) at patient's floor/unit and/or counseling patient: Coding Level of Care Code 86287 SUB INP/OBS CARE 2/35MIN Diagnoses Hematuria R31.9 Urothelial carcinoma of bladder C67.9
[2024-05-24] MEDS: carvediloL 3.125 MG TAB PO SCH (09:55)
--- NOTE | 2024-05-24 15:23 | Hospitalist Progress Note ---
Date of Service May 24, 2024 Assessment & Plan (1) Anemia: Plan: Patient found blood in his Depends briefs on the evening of 05/22 and morning of 05/23. He initially thought it could be due to hematuria or hemorrhoids Hgb 8.3 on arrival; MCV WNL Blood form consent obtained on admission; 1u pRBCs ordered, held hemoglobin remained stable, has not required transfusion. Plavix held on admission. Patient takes this for history of triple bypass. Discussed with Dr. Leung, patient's primary state inspector -okay to hold for short durations but really should be continued. Given that there is no plan to go to the OR at this time, will resume Plavix, as Plavix will likely have to be held again in the future and Hgb is stable. a.m. CBC (2) Hematuria: Plan: likely related to patient's underlying cancer process (has seen Dr. Pinto) Hx of prostate cancer s/p TURP and recently had cystoscopy with bladder neck lesion and urethral lesion biopsied and proven to be urothelial carcinoma Hx of kidney stone 40y ago; however, he currently denies flank, lower back, abdominal, or suprapubic pain Urology consulted - do not suspect infection, creatinine improving, no antibiotics needed - Needs follow-up with Dr. Sandra (this can be done outpatient) Bladder scan QS Continue Flomax and finasteride. (3) History of recurrent UTIs: Plan: Rocephin 2000 mg IV x 1 given in the ED Daughter is concerned, as patient was septic last fall due to a UTI PUA is dark brown and positive for blood, but no bacteria seen Will defer further antibiotics at this time Follow UCx, and if patient develops any infectious symptoms would recommend covering with broad-spectrum antibiotics (4) Acute kidney injury superimposed on CKD: Plan: Mild; creatinine 2.40 on admission (baseline might be around 1.7); ?Postrenal Avoid nephrotoxic agents Hold Entresto - discussed with Dr. Leung, can be held/stopped on discharge. carvedilol 3.125 mg twice daily resumed. Creatinine improving today 1.88 (5) Diabetes mellitus, type 2: Plan: Last A1c at 7.3% on 05/02/2024. Home regimen: glimepiride (held) SSI; with target BSG range 110-140mg/dL, CF 50, carb ratio 15 (6) Thrombocytopenia: Plan: Mild; platelet count 121 on admission improving. Plavix resumed as above. Hold chemical DVT PPx (7) CAD (coronary artery disease): Plan: History of CABG Resuming Plavix, resume carvedilol which he was supposed to be on but it has dropped off his list Continue pravastatin (8) Pacemaker: Plan: Noted, follows with cardiology (9) CHF (congestive heart failure): Plan: History of HFrEF with improved EF now Okay to discontinue Entresto due to renal dysfunction Resume carvedilol Euvolemic Plan Chronic stable medical conditions: * Mental healthcontinue Lexapro * Hypothyroidcontinue Synthroid, recent TSH normal * Hyperlipidemiacontinue pravastatin Disposition: Continued inpatient stay VTE PPx: SCDs; hold chemical DVT PPx in the setting of gross hematuria family updated extensively at bedside 05/[address] Leung, Cardiology Admission and Anticipated Discharge Date Admission Date: May 23, 2024 Supervising Physician Co-Signing Physician Notes PA Supervision Note: I did not personally see or examine the patient today, but I verified all giles points of BALBIR Flores's assessment and plan with the following exceptions/additions: None Subjective patient seen sitting up to the chair. Daughter present at bedside. Patient states that he was just discharged from [facility] to [facility] on 05/22. Yesterday he noticed blood in his depends. And prompted evaluation in the hospital because they did not know if it is coming from urinary or hemorrhoid. Had a prolonged discussion with Sam and his daughter about the recent pathology results from [facility]. It seems as though we are still waiting from pathology from [facility], however I reassured them that this is in fact cancer and the results from [place] are in line with the results from [facility]. This is further discussion he needs to have with Dr. Sandra his urologist and he does not necessarily have to remain in the hospital for this. However [facility] is unable to accommodate him today so we will keep him overnight for further monitoring. No back pain/flank plain with for concerns of kidney stones No fevers chills or UTI symptoms Review of Systems Review of Systems: All systems reviewed & are unremarkable except as noted in Subjective Physical Exam Physical Exam: General: NAD, VS as above Resp: normal respiratory effort, lungs clear to auscultation CV: RRR, no murmur, Abd: normal bowel sounds, non tender, no hepatosplenomegaly back: No CVA tenderness Extremities: Moves all extremities, no edema Neuro: A&O x3, Skin: intact, no lesions noted Results & Data Results & Data Vital Signs (Past 12 Hours) Vital Signs Temp Pulse Pulse Resp BP BP Pulse Ox 05/24/24 14:00 87 05/24/24 13:17 36.7 C 65 18 106/58 L 142/76 H 97 05/24/24 11:32 36.7 C 65 18 106/58 L 97 05/24/24 07:45 36.5 C 76 18 193/73 H 99 05/24/24 03:22 36.5 C 65 18 172/75 H 100 O2 Del Method 05/24/24 14:00 05/24/24 13:17 05/24/24 11:32 Room Air 05/24/24 07:45 Room Air 05/24/24 03:22 Room Air Laboratory Results CBC and chemistry reviewed PG Care Time/CCT Total # of Minutes Spent Total Time Spent with Patient: Total time spent is greater than 50% in coordination of care (as documented) at patient's floor/unit and/or counseling patient: Coding Level of Care Code 45354 SUB INP/OBS CARE 3/50MIN Diagnoses Anemia D64.9 Hematuria R31.9 History of recurrent UTIs Z87.440 Acute kidney injury superimposed on CKD N17.9; N18.9 Diabetes mellitus, type 2 E11.9 Thrombocytopenia D69.6 Coronary artery disease involving gambell coronary artery of gambell heart without angina pectoris I25.10 Coronary Disease-Associated Artery/Lesion type: gambell artery [place] vs. transplanted heart: gambell heart Associated angina: without angina Pacemaker Z95.0 CHF (congestive heart failure) I50.9 (7) CAD (coronary artery disease) Coronary Disease-Associated Artery/Lesion type: gambell artery [place] vs. transplanted heart: gambell heart Associated angina: without angina Qualified Code(s): I25.10 - Atherosclerotic heart disease of gambell coronary artery without angina pectoris
[2024-05-24] MEDS: CLOPIDOGREL BISULFATE 75 MG TAB PO SCH (19:32)
[2024-05-25 10:16] LABS: Hematocrit (blood only) 25.3 % (42.0-52.0); Hemoglobin 8.1 g/dl (14.0-18.0); Mean Corpuscular Hemoglobin 29.6 pg (25.0-34.0); Mean Corpuscular Volume 92.3 fL (80.0-100.0); Mean Platelet Volume 11.3 fL (9.4-12.4); Platelet Count 115 K/uL (130-400); RDW Coefficient of Variation 14.8 % (11.5-14.5); RDW Standard Deviation 49.7 fL (36.4-46.3); Red Blood Count 2.74 M/uL (4.70-6.10); White Blood Count 5.32 K/ul (4.8-10.8)
[2024-05-25 10:28] LABS: BUN Creatinine Ratio 22.8 (10-20); Calcium 8.9 mg/dl (8.6-10.3); Creatinine Clr Calc Pharmacy 30.6 ml/min; Est GFR (African American) 39.7 ml/min; Est GFR (Non-African American) 34.3 ml/min; Potassium 4.3 mmol/L (3.5-5.1)
[2024-05-25 10:38] LABS: Basophils # (auto) 0.04 K/uL (0.00-0.20); Basophils % (auto) 0.8 %; Eosinophils # (auto) 0.09 K/uL (0.00-0.50); Eosinophils % (auto) 1.7 %; Immature Granulocytes % (auto) 1.9 %; Lymphocytes # (auto) 0.53 K/uL (1.20-3.40); Monocytes # (auto) 1.11 K/uL (0.11-0.59); Monocytes % (auto) 20.9 %; Neutrophils # (auto) 3.45 K/uL (1.40-6.50); Neutrophils % (auto) 64.7 %; RBC Morphology Unremarkable
--- NOTE | 2024-05-25 11:11 | Hospitalist Progress Note ---
Date of Service May 25, 2024 Assessment & Plan (1) Anemia: Plan: Patient presented to ED on 05/23 following discovery of blood in his depends on 05/22 evening and 05/23 morning. -reviewed CBC 05/25 - hgb decreased to 8.1 -nursing staff reports hematuria 05/25 -reviewed urology recommendations 05/24 -unlikely related to infection -Continue observation -Defer further scopes to urological surgeon Dr. Sandra -Follow up w/ Dr. Pinto oncology -Patient continues on Plavix a.m. CBC (2) Hematuria: Plan: -likely related to underlying cancer, follows with Dr. Pinto -history of prostate cancer s/p TURP and recently had cystoscopy w/ bladder neck lesion/urethral lesion bx & proven to be urothelial carcinoma -history kidney stone 40 years ago, denies flank/lower back, abdominal, or suprapubic pain . -Bladder scan Qs -Continue Flomax -Continue Finasteride. (3) History of recurrent UTIs: Plan: -Rocephin 2000 mg IV x 1 given in the ED -Defer further antibiotics at this time -urine culture 05/23 negative. -if patient develops any infectious symptoms, cover with broad spectrum antibiotics. (4) Acute kidney injury superimposed on CKD: Plan: Mild; creatinine 2.40 on admission (baseline might be around 1.7); ?Postrenal -reviewed BMP 05/25: creatinine 1.80, BUN 41, improving -Avoid nephrotoxic agents Hold Entresto - discussed with Dr. Leung, can be held/stopped on discharge. -Carvedilol 3.125 mg twice daily resumed. AM BMP (5) Thrombocytopenia: Plan: Mild; platelet count 121 on admission -reviewed CBC 05/25: platelet 115 -Plavix resumed as above. -Hold chemical DVT PPx AM CBC Plan Chronic stable medical conditions: * Mental healthcontinue Lexapro * Hypothyroidcontinue Synthroid, recent TSH normal * Hyperlipidemiacontinue pravastatin * CAD: hx of CABG - Continue carvedilol, Plavix, and pravastatin * Patient has pacemaker, follows w/ cardiology * CHF - hx of HFrEF w/ improved EF now. discontinued entresto due to renal dysfunction. * Diabetes: Last A1c at 7.3% on 05/02/2024. Home regimen: glimepiride (held) SSI; with target BSG range 110-140mg/dL, CF 50, carb ratio 15 Disposition: Continue inpatient stay. Hopeful discharge 05/26 to [facility] VTE PPx: SCDs; hold chemical DVT PPx in the setting of gross hematuria family updated at bedside 05/25 Admission and Anticipated Discharge Date Admission Date: May 23, 2024 Subjective Patient was seen and examined this morning at bedside. Daughter was present at time of encounter. Patient reports to be feeling well today. He is awaiting physical therapy evaluation. He states he has not urinated or had a BM yet today. Hemoglobin dropped to 8.1. He denies chest pain, shortness of breath, leg edema. He is eating well. Discussed with patient and daughter, keeping him additional day to ensure his hgb is stable and not continuing to drop. Patient agreeable. Physical Exam 2 Constitutional: WD/WN, vitals as above Eyes: PERRL, conjunctivae normal, anicteric sclerae Respiratory: normal respiratory effort, lungs clear to auscultation Cardiovascular: RRR, no murmur, no edema Psychiatric: A+Ox3, euthymic affect Results & Data Results & Data Vital Signs (Past 12 Hours) Vital Signs Temp Pulse Pulse Resp BP Pulse Ox O2 Del Method 05/25/24 08:40 Room Air 05/25/24 07:50 36.4 C L 81 15 96 Room Air 05/25/24 07:00 64 05/25/24 03:43 36.7 C 59 L 18 179/71 H 98 Room Air Laboratory Results 05/25/24 09:51 05/25/24 09:51 PG Care Time/CCT Total # of Minutes Spent Total Time Spent with Patient: Total time spent is greater than 50% in coordination of care (as documented) at patient's floor/unit and/or counseling patient: Coding Level of Care Code 36331 SUB INP/OBS CARE 2/35MIN Diagnoses Anemia, unspecified type D64.9 Anemia type: unspecified type Gross hematuria R31.0 Hematuria type: gross History of recurrent UTIs Z87.440 Acute kidney injury superimposed on CKD N17.9; N18.9 Thrombocytopenia D69.6 (1) Anemia Anemia type: unspecified type Qualified Code(s): D64.9 - Anemia, unspecified (2) Hematuria Hematuria type: gross Qualified Code(s): R31.0 - Gross hematuria
[2024-05-26 08:02] LABS: Basophils # (auto) 0.06 K/uL (0.00-0.20); Basophils % (auto) 0.9 %; Eosinophils # (auto) 0.12 K/uL (0.00-0.50); Eosinophils % (auto) 1.8 %; Hemoglobin 8.2 g/dl (14.0-18.0); Immature Granulocytes # (auto) 0.14 K/uL (0.01-0.20); Immature Granulocytes % (auto) 2.1 %; Lymphocytes # (auto) 0.91 K/uL (1.20-3.40); Lymphocytes % (auto) 13.7 %; Mean Corpuscular Hemoglobin 29.8 pg (25.0-34.0); Mean Corpuscular Hgb Conc 32.8 g/dL (32.0-36.0); Mean Corpuscular Volume 90.9 fL (80.0-100.0); Mean Platelet Volume 11.8 fL (9.4-12.4); Monocytes # (auto) 1.84 K/uL (0.11-0.59); Monocytes % (auto) 27.7 %; Neutrophils # (auto) 3.57 K/uL (1.40-6.50); Neutrophils % (auto) 53.8 %; Platelet Count 121 K/uL (130-400); RDW Coefficient of Variation 14.7 % (11.5-14.5); Red Blood Count 2.75 M/uL (4.70-6.10); White Blood Count 6.64 K/ul (4.8-10.8)
[2024-05-26 08:15] LABS: Calcium 8.9 mg/dl (8.6-10.3); Creatinine Clr Calc Pharmacy 28.7 ml/min; Est GFR (African American) 36.8 ml/min; Est GFR (Non-African American) 31.7 ml/min; Potassium 4.7 mmol/L (3.5-5.1)
[2024-05-26] MEDS: D5W AND 1/4NSS 1,000 ML IV SCH (09:40)
--- NOTE | 2024-05-26 12:40 | Hospitalist Progress Note ---
Date of Service May 26, 2024 Assessment & Plan (1) Anemia: Plan: Patient presented to ED on 05/23 following discovery of blood in his depends on 05/22 evening and 05/23 morning. -reviewed CBC 05/25 - hgb decreased to 8.1 -nursing staff reports hematuria 05/25 -reviewed urology recommendations 05/24 -unlikely related to infection -Continue observation -Defer further scopes to urological surgeon Dr. Sandra -Follow up w/ Dr. Pinto oncology -Reached out to urology 05/26 regarding persistent gross hematuria. Appreciate/reviewed recommendations. Also discussed with Urology MALACHI via phone -avoid indwelling catheter as long as patient is still voiding adequately & emptying bladder -Oncology/radiation oncology evaluation for urothelial carcinoma. -Patient and his family are awaiting 3rd opinion pathology reviewed from [facility] -Consider repeat CTAP. -Consulted Oncology, appreciative of recommendations. -Patient continues on Plavix per recommendations of cardiology. a.m. CBC (2) Hematuria: Plan: -likely related to underlying cancer, follows with Dr. Pinto -history of prostate cancer s/p TURP and recently had cystoscopy w/ bladder neck lesion/urethral lesion bx & proven to be urothelial carcinoma -history kidney stone 40 years ago, denies flank/lower back, abdominal, or suprapubic pain . -Bladder scan Qs -Continue Flomax -Continue Finasteride. (3) History of recurrent UTIs: Plan: -Rocephin 2000 mg IV x 1 given in the ED -Defer further antibiotics at this time -urine culture 05/23 negative. -if patient develops any infectious symptoms, cover with broad spectrum antibiotics. (4) Acute kidney injury superimposed on CKD: Plan: Mild; creatinine 2.40 on admission (baseline might be around 1.7); ?Postrenal -reviewed BMP 05/26 AM: creatinine 1.92, BUN 48, potassium 4.7 -administered 1 bag Normal saline following worsened kidney function -repeat BMP 05/26 afternoon revealed worsening kidney function of BUN 52, Creatinine 2.04, and new hyperkalemia of 5.4 -Consulted nephrology, appreciative of recommendations. -Avoid nephrotoxic agents Hold Entresto - discussed with Dr. Leung, can be held/stopped on discharge. -Carvedilol 3.125 mg twice daily resumed. AM BMP, Magnesium (5) Thrombocytopenia: Plan: Mild; platelet count 121 on admission -reviewed CBC 05/26: platelet 121 -Plavix resumed as above. -Hold chemical DVT PPx AM CBC (6) Hypertension: Plan: Patient developed worsening hypertension on 05/25. However 05/26 patients BP in 200s/90s. -Carvedilol 3.125 PO BID -s/p amlodipine 2.5mg PO x 2 -continue to monitor Plan Chronic stable medical conditions: * Mental healthcontinue Lexapro * Hypothyroidcontinue Synthroid, recent TSH normal * Hyperlipidemiacontinue pravastatin * CAD: hx of CABG - Continue carvedilol, Plavix, and pravastatin * Patient has pacemaker, follows w/ cardiology * CHF - hx of HFrEF w/ improved EF now. discontinued Entresto due to renal dysfunction. * Diabetes: Last A1c at 7.3% on 05/02/2024. Home regimen: glimepiride (held) SSI; with target BSG range 110-140mg/dL, CF 50, carb ratio 15 Disposition: Continue inpatient stay for stabilization of gross hematuria and kidney function. VTE PPx: SCDs; hold chemical DVT PPx in the setting of gross hematuria family updated at bedside 05/26 Admission and Anticipated Discharge Date Admission Date: May 23, 2024 Subjective Patient seen and examined this morning at bedside. Patient's daughter present at time of encounter. Patient did report some burning with urination in catheter bag this morning. He is producing gross hematuria. He denied any chest pain, shortness of breath, or leg edema. Physical Exam 2 Constitutional: WD/WN, vitals as above Eyes: PERRL, conjunctivae normal, anicteric sclerae Respiratory: normal respiratory effort, lungs clear to auscultation Cardiovascular: RRR, no murmur, no edema Skin: no rashes, warm and dry Psychiatric: A+Ox3, euthymic affect Results & Data Results & Data Vital Signs (Past 12 Hours) Vital Signs Temp Pulse Resp BP BP Pulse Ox O2 Del Method 05/26/24 11:47 36.7 C 63 18 131/71 100 Room Air 05/26/24 07:28 36.4 C L 83 18 200/74 H 100 Room Air 05/26/24 02:54 36.6 C 68 18 148/67 H 97 Room Air Laboratory Results 05/26/24 06:54 05/26/24 14:54 PG Care Time/CCT Total # of Minutes Spent Total Time Spent with Patient: Total time spent is greater than 50% in coordination of care (as documented) at patient's floor/unit and/or counseling patient: Coding Level of Care Code 82012 SUB INP/OBS CARE 3/50MIN Diagnoses Anemia, unspecified type D64.9 Anemia type: unspecified type Gross hematuria R31.0 Hematuria type: gross History of recurrent UTIs Z87.440 Acute kidney injury superimposed on CKD N17.9; N18.9 Thrombocytopenia D69.6 Primary hypertension I10 Hypertension type: primary hypertension (1) Anemia Anemia type: unspecified type Qualified Code(s): D64.9 - Anemia, unspecified (2) Hematuria Hematuria type: gross Qualified Code(s): R31.0 - Gross hematuria (6) Hypertension Hypertension type: primary hypertension Qualified Code(s): I10 - Essential (primary) hypertension
--- NOTE | 2024-05-26 14:52 | Urology Progress Note ---
Date of Service May 26, 2024 Assessment & Plan (1) Hematuria: (2) Urothelial carcinoma of bladder: Plan Follow-up of gross hematuria. Patient afebrile, hypertensive. Labs today - wbc 6.64, hemoglobin 8.2, creatinine 1.92. Urine culture negative. Voiding spontaneously w/hematuria. Bladder scans have been appropriate. Continue to monitor. Hematuria is likely secondary to urothelial carcinoma. As long as he is voiding adequately and emptying the bladder, would recommend co ntinued monitoring and avoiding indwelling catheter as this may cause more bleeding. In regards to the urothelial carcinoma, pathology from [facility] [place] urothelial carcinoma with squamous differentiation of the urethra, bladder, prostate. We are still awaiting pathology results from [facility]. He will need oncology and radiation oncology evaluation. Can consider updated imaging with CT abd pelvis. Continue to trend labs. Continue supportive care, tamsulosin and finasteride. Anticoagulation per primary team. Discussed with hospital team. Urology will follow along. Admission and Anticipated Discharge Date Admission Date: May 23, 2024 Subjective Pt seen at bedside today Awake, sitting in bedside chair on arrival No acute distress External cath draining w/hematuria He reports some dysuria Denies suprapubic pain/pressure Denies f/c/n/v Review of Systems Constitutional: as per Subjective / HPI Genitourinary: + as per Subjective / HPI Physical Exam Constitutional: no acute distress Respiratory: no respiratory distress and no labored breathing Neurologic: awake Psychiatric: Orientation: alert and cooperative Genitourinary: External catheter draining w/hematuria Results & Data Vital Signs (Past 12 Hours) Vital Signs Temp Pulse Resp BP BP Pulse Ox O2 Del Method 05/26/24 11:47 36.7 C 63 18 131/71 100 Room Air 05/26/24 07:28 36.4 C L 83 18 200/74 H 100 Room Air 05/26/24 02:54 36.6 C 68 18 148/67 H 97 Room Air PG Care Time/CCT Total # of Minutes Spent Total Time Spent with Patient: Total time spent is greater than 50% in coordination of care (as documented) at patient's floor/unit and/or counseling patient: Coding Level of Care Code 29027 SUB INP/OBS CARE 2/35MIN Diagnoses Hematuria R31.9 Urothelial carcinoma of bladder C67.9
[2024-05-26 15:38] LABS: BUN Creatinine Ratio 25.5 (10-20); Calcium 9.2 mg/dl (8.6-10.3); Est GFR (African American) 34.2 ml/min; Est GFR (Non-African American) 29.5 ml/min; Potassium 5.4 mmol/L (3.5-5.1)
[2024-05-26] MEDS: amLODIPine BESYLATE 5 MG TAB PO ONE ×2 (15:55→18:11)
[2024-05-26] MEDS: ACETAMINOPHEN 325 MG TAB PO PRN (15:59)
--- NOTE | 2024-05-26 17:54 | Nephrology Consultation ---
Date of Consultation May 26, 2024 Assessment & Plan (1) Acute kidney injury superimposed on CKD: Non-oliguric. Creatinine stable at 2.0 mg/dL. Volume status acceptable. Medications are appropriate for kidney function. Document strict I/O's. Repeat metabolic profile tomorrow AM. If creatinine rises or urine output increases, consider updating imaging. (2) Hyperkalemia: Low potassium diet. Lokelma x 1 dose now. Encourage PO fluids. Repeat labs ordered. (3) Squamous cell carcinoma of prostate: Urology following. Oncology consultation pending. (4) Hematuria: (5) (HFpEF) heart failure with preserved ejection fraction: Entresto held. History of Present Illness Reason for Consultation: hyperkalemia, JORGE Requesting Physician: Misha Scott Attending Physician: Misha Scott History of Present Illness Mr. Sam Castillo is an 84 year-old male with chronic kidney disease and multiple episodes of JORGE who I know from the [facility] nephrology clinic in [place]. Sam was last seen in the clinic in December. Sam has CKD III A3. He has non-nephrotic proteinuria. Baseline creatinine ~1.5-2.0 mg/dL. CKD attributed to DKD, arterionephrosclerosis, and history of JORGE. Sam was admitted to [facility] last month with weakness and progressive debility. Serum creatinine 2.4 mg/dL at the time of discharge. He was discharged to [facility] where he completed inpatient rehabilitation. Sam returned home. He presented to the ER at [facility] on May 23 with gross hematuria. Symptoms attributed to urothelial carcinoma. Sam recently underwent cystoscopy with urethral dilation and TURP with biopsies of the bladder and urethral. Pathology demonstrating squamous cell carcinoma. He was treated for prostate cancer with radiation in the . Medical history also notable for history of CVA/TIA, DMII, coronary artery disease (CABG x 3v), HFpEF, hypothyroidism, orthostatic hypotension, and recurrent UTI. Nephrology consultation was requested today for evaluation of acute kidney injury and hyperkalemia. Sam has remained non-oliguric. He continues to have gross hematuria without clots. He feels that he is voiding without difficulty. Serum creatinine is stable at 2.0 mg/dL. Potassium 5.4 mmol/L. Amlodipine added today for hypertension. Allergies Allergy/AdvReac Type Severity Reaction Status Date / Time gluten Allergy Mild GI symptoms Verified 04/29/24 10:29 Penicillins Allergy Mild Rash Verified 04/29/24 10:29 Sulfa (Sulfonamide Allergy Mild Rash Verified 04/29/24 10:29 Antibiotics) cyclobenzaprine Allergy Unknown Unknown Verified 04/29/24 10:29 oxycodone AdvReac Intermediate Hallucinati Verified 04/29/24 10:29 ons Amxqxbj-AQE-NvR Reductase AdvReac Intermediate Muscle Verified 04/29/24 10:29 Inhibitor weakness, [Njyhshc-Wsd-Eir Reductase brain fog Inhibitor] tramadol AdvReac Intermediate Hallucinati Verified 04/29/24 10:29 ons fosfomycin AdvReac Mild Dizziness Verified 04/29/24 10:29 Home Medications Medication Instructions Recorded Confirmed Type folic acid 400 mcg tablet 0.4 mg PO QAM 02/22/22 05/23/24 History ferrous sulfate 325 mg (65 mg 325 mg PO Q2D 12/06/22 05/23/24 History iron) tablet (iron) blood-glucose meter (Gutenberg TechnologyStyle #1 ea 02/08/23 05/01/24 Rx Lite Meter kit) acetaminophen 650 mg 650 mg PO Q8H PRN Pain 05/03/23 05/23/24 History tablet,extended release (Arthritis Pain Relief (acetaminophen) ER) latanoprost 0.005 % eye drops 1 drp OPB HS 06/21/23 05/23/24 History (Xalatan) lancets 28 gauge (FreeStyle #300 ea 08/05/23 05/01/24 Rx Lancets) finasteride 5 mg tablet (Proscar) 5 mg PO HS #90 tabs 10/31/23 05/23/24 Rx ascorbic acid (vitamin C) 500 mg 500 mg PO Q2D 11/29/23 05/23/24 History tablet (Vitamin C) cholecalciferol (vitamin D3) 50 50 mcg PO QPM 11/29/23 05/23/24 History mcg (2,000 unit) tablet (Vitamin D3) pravastatin 10 mg tablet 10 mg PO QAM #90 tabs 12/05/23 05/23/24 Rx sacubitril 24 mg-valsartan 26 mg 1 tab PO BID #180 tabs 12/06/23 05/23/24 Rx tablet (Entresto) clopidogrel 75 mg tablet (Plavix) 75 mg PO PM #90 tabs 02/05/24 05/23/24 Rx blood sugar diagnostic (FreeStyle #100 ea 02/17/24 05/01/24 Rx Lite Strips) glimepiride 2 mg tablet 2 mg PO BID #60 tabs 03/05/24 05/23/24 Rx levothyroxine 50 mcg tablet 50 mcg PO QAM #90 tabs 03/24/24 05/23/24 Rx (Synthroid) escitalopram oxalate 5 mg tablet 5 mg PO QAM 04/08/24 05/23/24 History oxybutynin chloride 5 mg tablet 5 mg PO Q12 PRN bladder spasms #10 04/20/24 05/23/24 Rx tabs phenazopyridine 200 mg tablet 200 mg PO Q8H PRN pain #10 tabs 04/20/24 05/23/24 Rx (Pyridium) pantoprazole 20 mg tablet,delayed 20 mg PO QAM 05/01/24 05/23/24 History release (Protonix) tamsulosin 0.4 mg capsule (Flomax) 0.4 mg PO HS 05/01/24 05/23/24 History Patient History Medical History History of aspiration pneumonia per note 2022 Asthma Rotator cuff tear right>being tx by [place] [facility] (steroid injection) Mild cognitive disorder Kidney disease ? stage>followed by Dr. Hu Acid reflux Hx of basal cell carcinoma Depression Neuropathy CHF (congestive heart failure) Cardiomyopathy History of myocardial infarction 2021 Hyperlipidemia Hypertension Sacral ulcer Being treated by [facility] wound care>pressure ulcer "healing" BPH (benign prostatic hyperplasia) Hx: UTI (urinary tract infection) [facility] admission- sepsis 08/2023 Pacemaker Medtronic placed 05/2022>"placed d/t heart failure" Last check 04/10 JUMA/Darrick Low iron Brain TIA ? TIA vs CVA (2001)- patient reports left sided weakness with occasional "toe drop" r/t 2001 event- reason for Plavix Orthostatic hypotension Arthritis Pancreatic tumor ? tumor/cyst- yearly surveillance imaging GERD (gastroesophageal reflux disease) History of asthma History of prostate cancer Treated with radiation, no surgery Syncope Remote hx years ago, has a loop recorder in place>no recent episodes Hypothyroidism Surgical History History of coronary artery bypass graft 2021>3 vessels at [facility] History of prostate surgery radiation tx History of urologic surgery Rezum procedure History of anesthesia reaction Trouble coming out of knee replacement + CABG History of cardiac cath 02/2022- no stents > CABG x3 History of cataract surgery right/left History of esophagogastroduodenoscopy (EGD) H/O colonoscopy with polypectomy Tolstoy teeth removed S/P lumbar laminectomy History of loop recorder History of knee replacement Right History of tonsillectomy and adenoidectomy H/O hernia repair As toddler Hx of cholecystectomy Family History Brother Colon cancer Prostate cancer Grandfather Rectal cancer Unknown Heart disease Cancer Hypertension Mother Diabetes Congestive heart failure Stroke Grandmother (Paternal) Stroke Grandfather (Maternal) Myocardial infarction Other No family history of adverse response to anesthesia Denies family history of Ovarian cancer Breast cancer Social History Smoking Status: Former smoker Tobacco Type: Cigarettes Second Hand Exposure: No; Do You Dip or Chew Tobacco: No; Hx Alcohol Use: Yes Alcohol type: hard liquor Hx Substance Use: No Preferred Language: Surinamese Communication Ability: Effective Visual Impairment: No Limitations Hearing Ability: Use of Hearing Aid 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 Room Required: No Beliefs That Will Affect Care: None marital status: Current Living Situation: Spouse and Personal Care Facility current occupational status: retired current occupation: Retired How many Children do You have: 3 Feels Safe at Home: Yes Safety Concerns: Feels Safe At This Time Childhood Exposure to Second-Hand Smoke: Yes Diet: gluten free and lactose free caffeine: No Dental Care, Regularly: Yes Physical Activity Frequency: Daily Seatbelt Use: always Sunscreen Use: Yes Assistive Devices: Cane and Walker Review of Systems Review of Systems: All systems reviewed & are unremarkable except as noted in HPI & below Physical Exam Constitutional: well developed; no acute distress Eyes: no scleral abnormality and no corneal abnormality ENMT: Mouth: no oral mucosal abnormality and oral mucous membranes not dry Neck: normal visual inspection and trachea midline Respiratory: normal respiratory effort Auscultation: lungs clear to auscultation bilaterally Cardiovascular: Rate/Rhythm: regular rate Heart Sounds: normal S1 and no rmal S2 Extremities: no edema Musculoskeletal: Extremities: no cyanosis and no clubbing Skin: normal turgor; no lesions Neurologic: Motor/Sensory: no tremor and no asterixis Psychiatric: Orientation: alert and oriented x 3 Results & Data Vital Signs (Past 12 Hours) Vital Signs Temp Pulse Pulse Resp BP Pulse Ox O2 Del Method 05/26/24 15:49 69 05/26/24 15:05 36.4 C L 96 H 20 207/95 H 99 Room Air 05/26/24 11:47 36.7 C 63 18 131/71 100 Room Air 05/26/24 08:00 60 05/26/24 07:28 36.4 C L 83 18 200/74 H 100 Room Air Laboratory Results Laboratory Results - last 24 hr 05/25/24 05/26/24 05/26/24 20:37 06:54 07:58 WBC 6.64 RBC 2.75 L Hgb 8.2 L Hct 25.0 L MCV 90.9 MCH 29.8 MCHC 32.8 RDW Std Deviation 49.0 H RDW Coeff of Vinny 14.7 H Plt Count 121 L MPV 11.8 Immature Gran % (Auto) 2.1 Neut % (Auto) 53.8 Lymph % (Auto) 13.7 [place] % (Auto) 27.7 Eos % (Auto) 1.8 Baso % (Auto) 0.9 Neut # (Auto) 3.57 Lymph # (Auto) 0.91 L [place] # (Auto) 1.84 H Eos # (Auto) 0.12 Baso # (Auto) 0.06 Immature Gran # (Auto) 0.14 Sodium 138 Potassium 4.7 Chloride 107 Carbon Dioxide 24 Anion Gap 7 BUN 48 H Creatinine 1.92 H Est Cr Clr Drug Dosing 28.7 Est GFR ( Amer) 36.8 Est GFR (Non-Af Amer) 31.7 BUN/Creatinine Ratio 25.0 H Glucose 127 H POC Glucose 214 H 149 H Calcium 8.9 05/26/24 05/26/24 05/26/24 12:00 14:54 16:57 WBC RBC Hgb Hct MCV MCH MCHC RDW Std Deviation RDW Coeff of Vinny Plt Count MPV Immature Gran % (Auto) Neut % (Auto) Lymph % (Auto) [place] % (Auto) Eos % (Auto) Baso % (Auto) Neut # (Auto) Lymph # (Auto) [place] # (Auto) Eos # (Auto) Baso # (Auto) Immature Gran # (Auto) Sodium 136 Potassium 5.4 H Chloride 105 Carbon Dioxide 23 Anion Gap 8 BUN 52 H Creatinine 2.04 H Est Cr Clr Drug Dosing 27.0 Est GFR ( Amer) 34.2 Est GFR (Non-Af Amer) 29.5 BUN/Creatinine Ratio 25.5 H Glucose 105 H POC Glucose 244 H 88 Calcium 9.2 PG Care Time/CCT Total # of Minutes Spent Total Time Spent with Patient: Total time spent is greater than 50% in coordination of care (as documented) at patient's floor/unit and/or counseling patient: Coding Level of Care Code 43543 IN/OBS CONSULT LVL 4,60M Diagnoses Acute kidney injury superimposed on CKD N17.9; N18.9 Hyperkalemia E87.5 Squamous cell carcinoma of prostate C61 Hematuria R31.9 (HFpEF) heart failure with preserved ejection fraction I50.30
[2024-05-26] MEDS: SODIUM ZIRCONIUM CYCLOSILICATE 10 GM PACKET PO ONE (20:25)
[2024-05-26 23:19] LABS: BUN Creatinine Ratio 27.5 (10-20); Calcium 8.9 mg/dl (8.6-10.3); Creatinine Clr Calc Pharmacy 26.6 ml/min; Est GFR (African American) 33.6 ml/min; Potassium 4.4 mmol/L (3.5-5.1)
[2024-05-27 07:48] LABS: Hematocrit (blood only) 26.5 % (42.0-52.0); Hemoglobin 8.7 g/dl (14.0-18.0); Mean Corpuscular Hemoglobin 29.7 pg (25.0-34.0); Mean Corpuscular Hgb Conc 32.8 g/dL (32.0-36.0); Mean Corpuscular Volume 90.4 fL (80.0-100.0); Mean Platelet Volume 11.4 fL (9.4-12.4); Platelet Count 126 K/uL (130-400); RDW Coefficient of Variation 14.6 % (11.5-14.5); RDW Standard Deviation 47.6 fL (36.4-46.3); Red Blood Count 2.93 M/uL (4.70-6.10); White Blood Count 7.37 K/ul (4.8-10.8)
[2024-05-27 07:59] LABS: BUN Creatinine Ratio 28.3 (10-20); Calcium 8.8 mg/dl (8.6-10.3); Creatinine Clr Calc Pharmacy 30.6 ml/min; Est GFR (African American) 39.7 ml/min; Est GFR (Non-African American) 34.3 ml/min; Potassium 4.8 mmol/L (3.5-5.1)
--- NOTE | 2024-05-27 09:29 | Nephrology Progress Note ---
Date of Service May 27, 2024 Assessment & Plan (1) Acute kidney injury superimposed on CKD: Plan: Non-oliguric. Creatinine stable. Volume status acceptable. Medications are appropriate for kidney function. Document strict I/O's and monitor daily metabolic profile while inpatient. Kidney function is at baseline. I will follow labs peripherally during the hospitalization - otherwise please call with any questions or concerns. (2) Hyperkalemia: Plan: Resolved. Maintain low potassium diet. (3) Squamous cell carcinoma of prostate: Plan: Urology following. Oncology consultation pending. (4) Hematuria: (5) (HFpEF) heart failure with preserved ejection fraction: Plan: Entresto held. I will defer restarting the medication to cardiology. Admission and Anticipated Discharge Date Admission Date: May 23, 2024 Subjective No acute events overnight. Sam feels well this AM. Urine remains holguin colored. Condom catheter in place. No fevers or chills. He reports some mild irritation around the tip of his penis. He denies pain. He is breathing comfortably. Appetite is good. Review of Systems Review of Systems: All systems reviewed & are unremarkable except as noted in HPI & below Physical Exam Constitutional: well developed; no acute distress Eyes: no scleral abnormality and no corneal abnormality ENMT: Mouth: no oral mucosal abnormality and oral mucous membranes not dry Neck: normal visual inspection and trachea midline Respiratory: normal respiratory effort Auscultation: lungs clear to auscultation bilaterally Cardiovascular: Rate/Rhythm: regular rate Heart Sounds: normal S1 and normal S2 Extremities: no edema Musculoskeletal: Extremities: no cyanosis and no clubbing Skin: normal turgor; no lesions Neurologic: Motor/Sensory: no tremor and no asterixis Psychiatric: Orientation: alert and oriented x 3 Results & Data Vital Signs (Past 12 Hours) Vital Signs Temp Pulse Pulse Resp BP BP Pulse Ox 05/27/24 07:53 66 05/27/24 07:39 36.6 C 72 18 144/74 H 98 05/27/24 03:18 36.7 C 79 18 131/65 97 05/27/24 01:45 66 05/26/24 23:37 36.8 C 71 18 172/76 H 95 O2 Del Method 05/27/24 07:53 05/27/24 07:39 Room Air 05/27/24 03:18 Room Air 05/27/24 01:45 05/26/24 23:37 Room Air Laboratory Results Laboratory Results - last 24 hr 05/23/24 05/26/24 05/26/24 18:51 12:00 14:54 WBC RBC Hgb Hct MCV MCH MCHC RDW Std Deviation RDW Coeff of Vinny Plt Count MPV Sodium 136 Potassium 5.4 H Chloride 105 Carbon Dioxide 23 Anion Gap 8 BUN 52 H Creatinine 2.04 H Est Cr Clr Drug Dosing 27.0 Est GFR ( Amer) 34.2 Est GFR (Non-Af Amer) 29.5 BUN/Creatinine Ratio 25.5 H Glucose 105 H POC Glucose 244 H Calcium 9.2 Crossmatch See Detail 05/26/24 05/26/24 05/26/24 16:57 20:13 22:44 WBC RBC Hgb Hct MCV MCH MCHC RDW Std Deviation RDW Coeff of Vinny Plt Count MPV Sodium 134 L Potassium 4.4 Chloride 105 Carbon Dioxide 23 Anion Gap 6 BUN 57 H Creatinine 2.07 H Est Cr Clr Drug Dosing 26.6 Est GFR ( Amer) 33.6 Est GFR (Non-Af Amer) 29.0 BUN/Creatinine Ratio 27.5 H Glucose 77 POC Glucose 88 198 H Calcium 8.9 Crossmatch 05/27/24 05/27/24 07:01 08:15 WBC 7.37 RBC 2.93 L Hgb 8.7 L Hct 26.5 L MCV 90.4 MCH 29.7 MCHC 32.8 RDW Std Deviation 47.6 H RDW Coeff of Vinny 14.6 H Plt Count 126 L MPV 11.4 Sodium 137 Potassium 4.8 Chloride 107 Carbon Dioxide 23 Anion Gap 7 BUN 51 H Creatinine 1.80 H Est Cr Clr Drug Dosing 30.6 Est GFR ( Amer) 39.7 Est GFR (Non-Af Amer) 34.3 BUN/Creatinine Ratio 28.3 H Glucose 122 H POC Glucose 138 H Calcium 8.8 Crossmatch PG Care Time/CCT Total # of Minutes Spent Total Time Spent with Patient: Total time spent is greater than 50% in coordination of care (as documented) at patient's floor/unit and/or counseling patient: Coding Level of Care Code 39783 SUB INP/OBS CARE 3/50MIN Diagnoses Acute kidney injury superimposed on CKD N17.9; N18.9 Hyperkalemia E87.5 Squamous cell carcinoma of prostate C61 Hematuria R31.9 (HFpEF) heart failure with preserved ejection fraction I50.30
--- NOTE | 2024-05-27 15:48 | Hospitalist Progress Note ---
Date of Service May 27, 2024 Assessment & Plan (1) Anemia: Plan: Patient presented to ED on 05/23 following discovery of blood in his depends on 05/22 evening and 05/23 morning. -reviewed CBC 05/27 - hgb improved 8.7 -Reached out to urology 05/26 regarding persistent gross hematuria. Appreciate/reviewed recommendations. Also discussed with Urology MALACHI via phone -avoid indwelling catheter as long as patient is still voiding adequately & emptying bladder -Oncology/radiation oncology evaluation for urothelial carcinoma. -Patient and his family are awaiting 3rd opinion pathology reviewed from [facility] -Consider repeat CTAP. -Consulted Oncology, appreciative of recommendations. -Plan for patient to be discharged home 05/28 with close oncology follow up. -Patient continues on Plavix per recommendations of cardiology. a.m. CBC (2) Hematuria: Plan: -likely related to underlying cancer, follows with Dr. Pinto -history of prostate cancer s/p TURP and recently had cystoscopy w/ bladder neck lesion/urethral lesion bx & proven to be urothelial carcinoma -history kidney stone 40 years ago, denies flank/lower back, abdominal, or suprapubic pain . -Bladder scan Qs -Continue Flomax -Continue Finasteride. (3) History of recurrent UTIs: Plan: -Rocephin 2000 mg IV x 1 given in the ED -Defer further antibiotics at this time -urine culture 05/23 negative. -if patient develops any infectious symptoms, cover with broad spectrum antibiotics. (4) Acute kidney injury superimposed on CKD: Plan: Mild; creatinine 2.40 on admission (baseline might be around 1.7); ?Postrenal -reviewed BMP 05/27: creatinine 1.80, BUN 51, potassium 4.8 -Consulted nephrology, appreciative of recommendations. Reviewed notes 05/26 and 05/27 -Low potassium diet -s/p 1 dose Lokelma -increase PO fluids -Avoid nephrotoxic agents Hold Entresto - discussed with Dr. Leung, can be held/stopped on discharge. -Carvedilol 3.125 mg twice daily resumed. -s/p 1 bag normal saline 05/26 AM BMP, Magnesium (5) Thrombocytopenia: Plan: Mild; platelet count 121 on admission -reviewed CBC 05/27: platelet 126 -Plavix resumed as above. -Hold chemical DVT PPx AM CBC (6) Hypertension: Plan: Patient developed worsening hypertension on 05/25. However 05/26 patients BP in 200s/90s. -Carvedilol 3.125 PO BID -s/p amlodipine 2.5mg PO x 2 -continue to monitor Plan Chronic stable medical conditions: * Mental healthcontinue Lexapro * Hypothyroidcontinue Synthroid, recent TSH normal * Hyperlipidemiacontinue pravastatin * CAD: hx of CABG - Continue carvedilol, Plavix, and pravastatin * Patient has pacemaker, follows w/ cardiology * CHF - hx of HFrEF w/ improved EF now. discontinued Entresto due to renal dysfunction. * Diabetes: Last A1c at 7.3% on 05/02/2024. Home regimen: glimepiride (held) SSI; with target BSG range 110-140mg/dL, CF 50, carb ratio 15 Disposition: Hopeful discharge to [place] 05/28. VTE PPx: SCDs; hold chemical DVT PPx in the setting of gross hematuria Admission and Anticipated Discharge Date Admission Date: May 23, 2024 Subjective Patient seen and examined this morning at bedside. patient reports to be doing well today. He denies any complaints. His hematuria has lightened to a light pink. He is wondering what the plan will be with his cancer currently and would like to have meeting regarding this. He denies chest pain or shortness of breath. Physical Exam 2 Constitutional: WD/WN, vitals as above Eyes: PERRL, conjunctivae normal, anicteric sclerae Respiratory: normal respiratory effort, lungs clear to auscultation Cardiovascular: RRR, no murmur, no edema Skin: no rashes, warm and dry Psychiatric: A+Ox3, euthymic affect Results & Data Results & Data Vital Signs (Past 12 Hours) Vital Signs Temp Pulse Pulse Resp BP BP Pulse Ox 05/27/24 15:23 36.6 C 74 18 112/64 98 05/27/24 11:41 36.6 C 77 18 107/65 97 05/27/24 07:53 66 05/27/24 07:39 36.6 C 72 18 144/74 H 98 O2 Del Method 05/27/24 15:23 Room Air 05/27/24 11:41 Room Air 05/27/24 07:53 05/27/24 07:39 Room Air Laboratory Results 05/27/24 07:01 05/27/24 07:01 PG Care Time/CCT Total # of Minutes Spent Total Time Spent with Patient: Total time spent is greater than 50% in coordination of care (as documented) at patient's floor/unit and/or counseling patient: Coding Level of Care Code 43234 SUB INP/OBS CARE 2/35MIN Diagnoses Anemia, unspecified type D64.9 Anemia type: unspecified type Gross hematuria R31.0 Hematuria type: gross History of recurrent UTIs Z87.440 Acute kidney injury superimposed on CKD N17.9; N18.9 Thrombocytopenia D69.6 Primary hypertension I10 Hypertension type: primary hypertension (1) Anemia Anemia type: unspecified type Qualified Code(s): D64.9 - Anemia, unspecified (2) Hematuria Hematuria type: gross Qualified Code(s): R31.0 - Gross hematuria (6) Hypertension Hypertension type: primary hypertension Qualified Code(s): I10 - Essential (primary) hypertension
--- NOTE | 2024-05-27 17:19 | Urology Progress Note ---
Date of Service May 27, 2024 Assessment & Plan (1) Hematuria: (2) Urothelial carcinoma of bladder: Plan Follow-up of gross hematuria. Patient afebrile and hemodynamically stable. Labs today - wbc 7.37, hemoglobin 8.7, creatinine 1.80. Urine culture negative. External catheter in place and draining with hematuria. Continue to monitor. Hematuria is likely secondary to urothelial carcinoma. As long as he is voiding adequately and emptying the bladder, would recommend continued monitoring and avoiding indwelling catheter as this may cause more bleeding. In regards to the urothelial carcinoma, pathology from [facility] shows urothelial carcinoma with squamous differentiation of the urethra, bladder, prostate. We are still awaiting pathology results from [facility]. He will need oncology and radiation oncology evaluation. Continue to trend labs. Continue supportive care, tamsulosin and finasteride. Anticoagulation per primary team. Will arrange outpatient follow-up with our service. Urology will follow peripherally. Please call with any further questions or concerns. Admission and Anticipated Discharge Date Admission Date: May 23, 2024 Subjective Patient seen at bedside Awake, resting bed on arrival No acute distress Interiano draining with hematuria No reported pain at present Review of Systems Constitutional: as per Subjective / HPI Genitourinary: + as per Subjective / HPI Physical Exam Constitutional: no acute distress Respiratory: no respiratory distress and no labored breathing Neurologic: awake Psychiatric: Orientation: alert and cooperative Genitourinary: External catheter draining w/hematuria Results & Data Vital Signs (Past 12 Hours) Vital Signs Temp Pulse Pulse Resp BP BP Pulse Ox 05/27/24 15:23 36.6 C 74 18 112/64 98 05/27/24 11:41 36.6 C 77 18 107/65 97 05/27/24 07:53 66 05/27/24 07:39 36.6 C 72 18 144/74 H 98 O2 Del Method 05/27/24 15:23 Room Air 05/27/24 11:41 Room Air 05/27/24 07:53 05/27/24 07:39 Room Air PG Care Time/CCT Total # of Minutes Spent Total Time Spent with Patient: Total time spent is greater than 50% in coordination of care (as documented) at patient's floor/unit and/or counseling patient: Coding Level of Care Code 45716 SUB INP/OBS CARE 2/35MIN Diagnoses Hematuria R31.9 Urothelial carcinoma of bladder C67.9
--- NOTE | 2024-05-27 18:32 | Oncology Consultation ---
Date of Consultation May 27, 2024 History of Present Illness Attending Physician: Misha Scott Allergies Allergy/AdvReac Type Severity Reaction Status Date / Time gluten Allergy Mild GI symptoms Verified 04/29/24 10:29 Penicillins Allergy Mild Rash Verified 04/29/24 10:29 Sulfa (Sulfonamide Allergy Mild Rash Verified 04/29/24 10:29 Antibiotics) cyclobenzaprine Allergy Unknown Unknown Verified 04/29/24 10:29 oxycodone AdvReac Intermediate Hallucinati Verified 04/29/24 10:29 ons Gmyokqr-PEP-OkX Reductase AdvReac Intermediate Muscle Verified 04/29/24 10:29 Inhibitor weakness, [Papeygi-Uly-Vre Reductase brain fog Inhibitor] tramadol AdvReac Intermediate Hallucinati Verified 04/29/24 10:29 ons fosfomycin AdvReac Mild Dizziness Verified 04/29/24 10:29 Home Medications Medication Instructions Recorded Confirmed Type folic acid 400 mcg tablet 0.4 mg PO QAM 02/22/22 05/23/24 History ferrous sulfate 325 mg (65 mg 325 mg PO Q2D 12/06/22 05/23/24 History iron) tablet (iron) blood-glucose meter (FreeStyle #1 ea 02/08/23 05/01/24 Rx Lite Meter kit) acetaminophen 650 mg 650 mg PO Q8H PRN Pain 05/03/23 05/23/24 History tablet,extended release (Arthritis Pain Relief (acetaminophen) ER) latanoprost 0.005 % eye drops 1 drp OPB HS 06/21/23 05/23/24 History (Xalatan) lancets 28 gauge (FreeStyle #300 ea 08/05/23 05/01/24 Rx Lancets) finasteride 5 mg tablet (Proscar) 5 mg PO HS #90 tabs 10/31/23 05/23/24 Rx ascorbic acid (vitamin C) 500 mg 500 mg PO Q2D 11/29/23 05/23/24 History tablet (Vitamin C) cholecalciferol (vitamin D3) 50 50 mcg PO QPM 11/29/23 05/23/24 History mcg (2,000 unit) tablet (Vitamin D3) pravastatin 10 mg tablet 10 mg PO QAM #90 tabs 12/05/23 05/23/24 Rx sacubitril 24 mg-valsartan 26 mg 1 tab PO BID #180 tabs 12/06/23 05/23/24 Rx tablet (Entresto) clopidogrel 75 mg tablet (Plavix) 75 mg PO PM #90 tabs 02/05/24 05/23/24 Rx blood sugar diagnostic (FreeStyle #100 ea 02/17/24 05/01/24 Rx Lite Strips) glimepiride 2 mg tablet 2 mg PO BID #60 tabs 03/05/24 05/23/24 Rx levothyroxine 50 mcg tablet 50 mcg PO QAM #90 tabs 03/24/24 05/23/24 Rx (Synthroid) escitalopram oxalate 5 mg tablet 5 mg PO QAM 04/08/24 05/23/24 History oxybutynin chloride 5 mg tablet 5 mg PO Q12 PRN bladder spasms #10 04/20/24 05/23/24 Rx tabs phenazopyridine 200 mg tablet 200 mg PO Q8H PRN pain #10 tabs 04/20/24 05/23/24 Rx (Pyridium) pantoprazole 20 mg tablet,delayed 20 mg PO QAM 05/01/24 05/23/24 History release (Protonix) tamsulosin 0.4 mg capsule (Flomax) 0.4 mg PO HS 05/01/24 05/23/24 History Patient History Medical History History of aspiration pneumonia per note 2022 Asthma Rotator cuff tear right>being tx by [place] [facility] (steroid injection) Mild cognitive disorder Kidney disease ? stage>followed by Dr. Hu Acid reflux Hx of basal cell carcinoma Depression Neuropathy CHF (congestive heart failure) Cardiomyopathy History of myocardial infarction 2021 Hyperlipidemia Hypertension Sacral ulcer Being treated by [facility] wound care>pressure ulcer "healing" BPH (benign prostatic hyperplasia) Hx: UTI (urinary tract infection) [facility] admission- sepsis 08/2023 Pacemaker Medtronic placed 05/2022>"placed d/t heart failure" Last check 04/10 JUMA/Darrick Low iron Brain TIA ? TIA vs CVA (2001)- patient reports left sided weakness with occasional "toe drop" r/t 2001 event- reason for Plavix Orthostatic hypotension Arthritis Pancreatic tumor ? tumor/cyst- yearly surveillance imaging GERD (gastroesophageal reflux disease) History of asthma History of prostate cancer Treated with radiation, no surgery Syncope Remote hx years ago, has a loop recorder in place>no recent episodes Hypothyroidism Surgical History History of coronary artery bypass graft 2021>3 vessels at [facility] History of prostate surgery radiation tx History of urologic surgery Rezum procedure History of anesthesia reaction Trouble coming out of knee replacement + CABG History of cardiac cath 02/2022- no stents > CABG x3 History of cataract surgery right/left History of esophagogastroduodenoscopy (EGD) H/O colonoscopy with polypectomy [place] teeth removed S/P lumbar laminectomy History of loop recorder History of knee replacement Right History of tonsillectomy and adenoidectomy H/O hernia repair As toddler Hx of cholecystectomy Family History Brother Colon cancer Prostate cancer Grandfather Rectal cancer Unknown Heart disease Cancer Hypertension Mother Diabetes Congestive heart failure Stroke Grandmother (Paternal) Stroke Grandfather (Maternal) Myocardial infarction Other No family history of adverse response to anesthesia Denies family history of Ovarian cancer Breast cancer Social History Smoking Status: Former smoker Tobacco Type: Cigarettes Second Hand Exposure: No; Do You Dip or Chew Tobacco: No; Hx Alcohol Use: Yes Alcohol type: hard liquor Hx Substance Use: No Preferred Language: [place] Communication Ability: Effective Visual Impairment: No Limitations Hearing Ability: Use of Hearing Aid Medical Staff Services Manager Required: No Beliefs That Will Affect Care: None marital status: Current Living Situation: Spouse and Personal Care Facility current occupational status: retired current occupation: Retired How many Children do You have: 3 Feels Safe at Home: Yes Safety Concerns: Feels Safe At This Time Childhood Exposure to Second-Hand Smoke: Yes Diet: gluten free and lactose free caffeine: No Dental Care, Regularly: Yes Physical Activity Frequency: Daily Seatbelt Use: always Sunscreen Use: Yes Assistive Devices: Cane and Walker Results & Data Vital Signs (Past 12 Hours) Vital Signs Temp Pulse Pulse Resp BP BP Pulse Ox 05/27/24 17:39 85 05/27/24 15:23 36.6 C 74 18 112/64 98 05/27/24 11:41 36.6 C 77 18 107/65 97 05/27/24 07:53 66 05/27/24 07:39 36.6 C 72 18 144/74 H 98 O2 Del Method 05/27/24 17:39 05/27/24 15:23 Room Air 05/27/24 11:41 Room Air 05/27/24 07:53 05/27/24 07:39 Room Air
[2024-05-28 08:16] LABS: Hemoglobin 8.5 g/dl (14.0-18.0); Mean Corpuscular Hemoglobin 29.7 pg (25.0-34.0); Mean Corpuscular Hgb Conc 32.7 g/dL (32.0-36.0); Mean Corpuscular Volume 90.9 fL (80.0-100.0); Mean Platelet Volume 11.6 fL (9.4-12.4); Platelet Count 128 K/uL (130-400); RDW Coefficient of Variation 14.6 % (11.5-14.5); Red Blood Count 2.86 M/uL (4.70-6.10); White Blood Count 5.67 K/ul (4.8-10.8)
[2024-05-28 08:33] LABS: BUN Creatinine Ratio 29.8 (10-20); Calcium 8.7 mg/dl (8.6-10.3); Creatinine Clr Calc Pharmacy 26.5 ml/min; Est GFR (African American) 33.4 ml/min; Est GFR (Non-African American) 28.8 ml/min; Potassium 4.6 mmol/L (3.5-5.1)
--- NOTE | 2024-05-28 09:43 | Discharge Summary ---
Date of Service May 28, 2024 Admission HPI Per Admitting Provider Sam is an 84-year-old male with PMH of CVA, TIA, T2DM, BPH, neuroendocrine tumor, first-degree AV block, CAD s/p CABG x 3, cardiomyopathy, recurrent UTIs, GERD, and diastolic CHF. He presented for bleeding in his Depends briefs on the evening of 05/22 and morning of 05/23. Patient is unsure if it was due to his hemorrhoids or from hematuria. He denies any abdominal pain, ruel blood in the stool, or melena. No history of GI bleeds. Patient currently takes Plavix for a TIA that occurred back in 2001. He reports he has never been on Eliquis, Xarelto, or Coumadin. He does have a history of hemorrhoids, but is unsure if they have been acting up. He believes he had 1 blood transfusion many years back. Patient reports that he took all his regular morning medications today; no recent change in medications. He does note that he has been coughing due to a recent cold, and taking Mucinex. Patient's daughter (Kelly) is at the bedside and helps to provide history. She reports that he has had recurrent UTIs, including one that led to sepsis back in August 2023. Patient is hypertensive at 151/72 at time of admission; vitals otherwise stable. ED course: Ceftriaxone 2000 mg IV ROS: Patient endorses CHAPPELL (chronic), occasional PARDO, dry cough (which patient attributes to recent cold), intermittent burning with urination, dysuria, urinary incontinence, difficulty voiding, blood in urine. Patient denies fever, chills, night-sweats, dizziness, lightheadedness, chest pain, SOB at rest, abdominal pain, N/V/D, melena, bright red blood in stool, saddle anesthesia, or bowel incontinence. Principal Diagnosis urothelial carcinoma, hematuria Discharge Exam Constitutional WD/WN, vitals as above Eyes PERRL, conjunctivae normal, anicteric sclerae Respiratory normal respiratory effort, lungs clear to auscultation Skin no rashes, warm and dry Psychiatric A+Ox3, euthymic affect Discharge Data Allergies Allergy/AdvReac Type Severity Reaction Status Date / Time gluten Allergy Intermediate GI symptoms Verified 05/29/24 16:04 Penicillins Allergy Mild Rash Verified 05/29/24 16:04 Sulfa (Sulfonamide Allergy Mild Rash Verified 05/29/24 16:04 Antibiotics) cyclobenzaprine Allergy Unknown Unknown Verified 05/29/24 16:04 fosfomycin AdvReac Intermediate Dizziness Verified 05/29/24 16:04 oxycodone AdvReac Intermediate Hallucinati Verified 05/29/24 16:04 ons Qfbculd-FES-FqR Reductase AdvReac Intermediate Muscle Verified 05/29/24 16:04 Inhibitor weakness, [Rihyqsm-Rfx-Qei Reductase brain fog Inhibitor] tramadol AdvReac Intermediate Hallucinati Verified 05/29/24 16:04 ons Consultations 05/23/24 17:51 ED Decision to Admit Stat 05/24/24 01:47 Consult Urology Routine 05/26/24 15:47 Consult Nephrology Routine Consult Oncology Routine Ordered Studies 05/28/24 07:11 05/28/24 07:11 Vital Signs Temp 36.5 C 05/28/24 14:11 Pulse 69 05/28/24 14:11 Resp 16 05/28/24 14:11 BP 164/78 H 05/28/24 14:11 Pulse Ox 98 05/28/24 14:11 O2 Del Method Room Air 05/28/24 10:56 Hospital Course (1) Anemia: Patient presented to ED on 05/23 following discovery of blood in his depends on 05/22 evening and 05/23 morning. On day of discharge his hgb was stable at 8.5. Urology was consulted who recommended to avoid indwelling catheter if he was still able to void adequately and empty his bladder. Hematuria was from urothelial carcinoma. Per urology patient is awaiting a 3rd opinion from [facility] regarding pathology from cysctoscopy. Oncology was consulted and Dr. Pinto evaluated the patient. Patient is to follow up closely with oncology upon discharge. He was continued on Plavix per cardiology. He is to repeat CBC in 1 week to reassess levels. (2) Hematuria: see plan above. (3) History of recurrent UTIs: -Rocephin 2000 mg IV x 1 given in the ED. Urine culture was negative on 05/23 and further antibiotics were deferred at that time. (4) Acute kidney injury superimposed on CKD: Mild; creatinine 2.40 on admission (baseline might be around 1.7). On day of discharge creatinine was 2.08 and BUN 62. Nephrology was consulted during patients stay who recommended low potassium diet. He was given 1 dose of Lokelma on 05/26 due to hyperkalemia. Potassium stable day of discharge at 4.6. He was given information on low potassium diet and encouraged to increase his PO fluids. Entresto was discussed with Dr. Leung who recommended this be held/stopped on discharge. Patient can follow up with cardiology for further recommendations regarding this outpatient. He is to get BMP in 1 week of discharge to reassess. (5) Thrombocytopenia: Mild; platelet count 121 on admission. 05/28 platelet count was 128,000. Plavix was continued and DVT prophylaxis was held during hospital stay. (6) Hypertension: Patient developed worsening hypertension on 05/25. However 05/26 patients BP in 200s/90s. He was continue don Carvedilol 3.125 PO BID. He was given 2 doses of amlodipine on 05/26 that did help lower his pressures. Plan Chronic stable medical conditions: * Mental health Lexapro * Hypothyroid Synthroid, recent TSH normal * Hyperlipidemia pravastatin * CAD: hx of CABG - carvedilol, Plavix, and pravastatin * Patient has pacemaker, follows w/ cardiology * CHF - hx of HFrEF w/ improved EF now. discontinued Entresto due to renal dysfunction. * Diabetes: Last A1c at 7.3% on 05/02/2024. Home regimen: glimepiride resumed on discharge. Total Time Total Time Spent Total Time Spent (In Minutes): 40 Total Time Includes: Examination of the Patient, Discharge Planning, Medication Reconciliation and Communication With Other Providers Discharge Plan Discharge Items Patient Disposition: Personal Group Home Reason For Visit: HEMATURIA Discharge Diagnosis: Urothelial carcinoma, hematuria Activity: Resume your previous activity Non-emergency contact: Primary Care Provider, Oncologist and Urologist Call non-emergency contact if: you have any medication questions and your symptoms worsen Follow-up/Referrals: Sam Leung MD [Physician] - 06/02/24 12:00 pm Dick Adams MD [Primary Care Provider] - Diet: Carb Consistent or DM2 and Low Potassium (2gm) Ambulatory Orders: Basic Metabolic Panel (Routine) Timeframe: [id number] Location: Determined by Patient Ordered By: Annie Borrego Complete Blood Count no Diff (Timed) Timeframe: [id number] Location: Determined by Patient Ordered By: Annie Rice Attending Provider Instructions: Mr. Castillo, You were recently hospitalized for having blood in your urine. During your hospital stay you were evaluated by urology, nephrology, and oncology. You may still continue to experience blood in your urine upon discharge due to the urothelial carcinoma and being on a blood thinner. We are arranging for you to follow up closely with oncology. Please see recommendations below regarding your discharge. 1. Please obtain lab work in 1 weeks. This will be drawn at [facility] on 06/03. This will reassess your kidney function and blood counts 2. Someone will be in contact with you regarding appointments with oncology, urology, and cardiology. 3. Please continue on a low potassium diet 4. Please continue on Plavix, Carvedilol, and Pravastatin for your heart 5. Please continue on Flomax and Finasteride for your bladder. 6. We have stopped your Entresto due to worsening kidney function while being hospitalized. Please follow up with Dr. Leung regarding further recommendations regarding this. 7. Please continue on Lexapro for your anxiety/depression 8. Please continue on Synthroid for your hypothyroidism 9. You may resume your previous diabetic medications. Please follow up with your PCP within 1-2 weeks of discharge. If you develop any worsening of your symptoms including unable to urinate, burning with urination, urinary freqeuncy/urgency, chest pain, shortness of breath, or dizziness/lightheadedness please report to the ED for further evaluation. Sincerely, Annie Borrego PA-C Pending Studies at Discharge: No Stand-Alone Forms: My [employer] Private, Smoking Cessation Skilled Items Patient informed of condition?: Yes DNR: No Discharge Level of Care: Other Communicable Disease: No Discharge Prognosis: Stable Lines: None Urinary Catheter: No Medications and DC Order Prescriptions: Continued finasteride [Proscar] 5 mg tablet 5 mg PO HS Qty: 90 3RF pravastatin 10 mg tablet 10 mg PO QAM Qty: 90 1RF Rx Instructions: This is listed as an allergy, but listed on medications. clopidogrel [Plavix] 75 mg tablet 75 mg PO PM Qty: 90 3RF Patient Comments: on hold until after surgery folic acid 400 mcg tablet 0.4 mg PO QAM Patient Comments: NOT IN STOCK AT PHARMACY , CURRENTLY OUT OF acetaminophen [Arthritis Pain Relief (acetam)] 650 mg tablet extended release 650 mg PO Q4H PRN (Reason: Pain) latanoprost [Xalatan] 0.005 % drops 1 drp OPB HS cholecalciferol (vitamin D3) [Vitamin D3] 50 mcg (2,000 unit) Tablet 50 mcg PO QPM ascorbic acid (vitamin C) [Vitamin C] 500 mg Tablet 500 mg PO Q2D pantoprazole [Protonix] 20 mg tablet,delayed release (DR/EC) 20 mg PO DAILYBB tamsulosin [Flomax] 0.4 mg capsule 0.4 mg PO HS escitalopram oxalate 5 mg Tablet 5 mg PO QAM oxybutynin chloride 5 mg tablet 5 mg PO Q12 PRN (Reason: bladder spasms) Qty: 10 0RF Discontinued Entresto 24-26 mg tablet 1 tab PO BID Qty: 180 3RF Rx Instructions: filled 04/05/24 for 30 day supply No Action (DME) blood-glucose meter [FreeStyle Lite Meter] Kit See Rx Instructions .Route Qty: 1 0RF Rx Instructions: Test blood sugar three times daily DX:E11.9 (DME) lancets [FreeStyle Lancets] 28 gauge misc See Rx Instructions .Route Qty: 300 3RF Rx Instructions: TEST THREE TIMES DAILY. DX: E11.9 (DME) FreeStyle Lite Strips Strip See Rx Instructions .Route Qty: 100 3RF Rx Instructions: test once daily guaifenesin [Mucus Relief ER] 600 mg Tablet Extended Release 12hr 1,200 mg PO Q12H glimepiride 2 mg tablet 2 mg PO QDB levothyroxine [Synthroid] 50 mcg tablet 50 mcg PO DAILYBB phenazopyridine [Pyridium] 200 mg tablet 200 mg PO TID PRN (Reason: URINARY PAIN) Discharge Orders: Discharge Order (Routine); Ordered 05/28/24 Ordered By: Annie Frances/Other Patient Handouts: Anemia, What is Hematuria?, Understanding Bladder Cancer, Bladder Cancer TUR Admission Data Admit Date/Time: 05/23/24 18:13 Attending Provider: Misha Scott Admit Provider: Rolando Hernandes Primary Care Provider: Dick Adams Other Providers: Rolando Hernandes; Bob Roberts; Gordy Cabrera; Rosalinda Xie; Alison Cortes; Bruce Pinto; Rica Ventura; Sona Clemens; Sanjeev Cleaning; Vincenzo Tao; Stormy Kirby; zP,No Attending; Ibrahima Roberts; Caitlin Hodge; Sanjeev Hu; Judith Dickens Other Interventions: Discharge Summary Assessment (RN) Last Done: 05/28/24 14:11 Supervising Physician Co-Signing Physician Notes During face to face encounter, I obtained a brief physical examination, discussed hospital stay with patient and discharge instructions with patient. I discussed discharge plan of care with DEONDRE Borrego. I reviewed above note and agree with it except for the following: Patient with hematuria secondary to urothelial cancer. Patient will followup with Oncology and urology as an outpatient. Patient is currently stable for discharge. Extensive discharge instructions noted above. Coding Level of Care Code 21791 INP/OBS DISCH >30 MIN Diagnoses Anemia, unspecified type D64.9 Anemia type: unspecified type Gross hematuria R31.0 Hematuria type: gross History of recurrent UTIs Z87.440 Acute kidney injury superimposed on CKD N17.9; N18.9 Thrombocytopenia D69.6 Primary hypertension I10 Hypertension type: primary hypertension
== END 2024-05-28 14:39 | disposition home or self-care (01) | DRG 687 ==
LOC: ED 13:38 → SUATTDRO 18:13 → 2N 18:13
DX: E11.22 Type 2 diabetes mellitus with diabetic chronic kidney disease; I42.9 Cardiomyopathy, unspecified; Z83.3 Family history of diabetes mellitus; Z95.1 Presence of aortocoronary bypass graft; C67.9 Malignant neoplasm of bladder, unspecified; I25.10 Atherosclerotic heart disease of native coronary artery without angina pectoris; Z88.0 Allergy status to penicillin; Z88.2 Allergy status to sulfonamides; D69.6 Thrombocytopenia, unspecified; I50.42 Chronic combined systolic (congestive) and diastolic (congestive) heart failure; R33.9 Retention of urine, unspecified; Z86.73 Personal history of transient ischemic attack (TIA), and cerebral infarction without residual deficits; N40.1 Benign prostatic hyperplasia with lower urinary tract symptoms; Z87.891 Personal history of nicotine dependence; Z87.440 Personal history of urinary (tract) infections; E11.40 Type 2 diabetes mellitus with diabetic neuropathy, unspecified; R31.0 Gross hematuria; Z85.46 Personal history of malignant neoplasm of prostate; M21.372 Foot drop, left foot; Z92.3 Personal history of irradiation; N18.30 Chronic kidney disease, stage 3 unspecified; J45.909 Unspecified asthma, uncomplicated; D64.9 Anemia, unspecified; N17.9 Acute kidney failure, unspecified; Z88.1 Allergy status to other antibiotic agents; I13.0 Hypertensive heart and chronic kidney disease with heart failure and stage 1 through stage 4 chronic kidney disease, or unspecified chronic kidney disease; Z95.0 Presence of cardiac pacemaker; N30.90 Cystitis, unspecified without hematuria; E87.5 Hyperkalemia; Z88.8 Allergy status to other drugs, medicaments and biological substances

== ENCOUNTER 2024-09-24 09:20 | Inpatient (IN) ==
[2024-09-24 09:49] LABS: iSTAT Creatinine 2.3 mg/dl (0.6-1.3); iSTAT Hemoglobin 10.2 g/dl (14.0-18.0); iSTAT Ionized Calcium 1.28 mmol/l (1.12-1.32); iSTAT Potassium 3.7 mmol/L (3.3-5.0)
[2024-09-24 09:58] LABS: Hematocrit (blood only) 31.6 % (42.0-52.0); Hemoglobin 9.9 g/dl (14.0-18.0); Mean Corpuscular Hemoglobin 27.3 pg (25.0-34.0); Mean Corpuscular Hgb Conc 31.3 g/dL (32.0-36.0); Mean Corpuscular Volume 87.1 fL (80.0-100.0); Mean Platelet Volume 10.9 fL (9.4-12.4); Nucleated RBC # (auto) 0.06 K/uL (0.00-0.12); Nucleated RBC % (auto) 0.3 %; Platelet Count 188 K/uL (130-400); RDW Coefficient of Variation 15.9 % (11.5-14.5); RDW Standard Deviation 49.1 fL (36.4-46.3); Red Blood Count 3.63 M/uL (4.70-6.10)
[2024-09-24] MEDS: SODIUM CHLORIDE 0.9% 1,000 ML IV ONE (10:01)
[2024-09-24] MEDS: CEFEPIME 2000MG 2,000 MG/20 ML SYR IV ONE (10:01)
--- NOTE | 2024-09-24 10:05 | CT Scan Report ---
CT OF THE HEAD WITHOUT CONTRAST CLINICAL HISTORY: recent head injury COMPARISON STUDY: Head CT September 17, 2024. TECHNIQUE: Helical axial images of the head were obtained without IV contrast. Automated exposure con trol was utilized for the study. A dose lowering technique was utilized adhering to the principles o f ALARA. FINDINGS: This exam is mildly compromised by motion artifact. The ventricular system is stable. Basal cisterns are patent. Scattered foci of acute subarachnoid hemorrhage are noted. The amount of subara chnoid hemorrhage has decreased when compared to CT of September 17, 2024. There is a small to moderate amount of hemorrhage. No subdural or epidural hemorrhage is present. There is no evidence for hernia tion. There are no findings to suggest acute dural sinus thrombosis or acute territorial infarct. The re are no calvarial fractures. IMPRESSION: 1. Small to moderate amount of scattered acute subarachnoid hemorrhage, decreased in amount since CT of September 17, 2024. 2. No calvarial fractures. ACT 112: Negative or not required by law. Electronically signed by: Santi Faustin M.D. 09/24/2024 10:02 AM
--- NOTE | 2024-09-24 10:11 | XRay Report ---
XR chest 1V portable HISTORY: 84 years-old Male Chest pain, nonspecific COMPARISON: 09/17/2024 TECHNIQUE: AP view the chest FINDINGS: Cardiac silhouette is enlarged. Median sternotomy. Electronic device projects over the left heart bor max. Left subclavian pacer. Mediastinal surgical clips. No pneumothorax. Layering pleural effusions w ith bibasilar consolidation. Interstitial pulmonary edema. Right upper quadrant surgical clips. The b ones appear grossly intact. IMPRESSION: 1. Cardiomegaly with interstitial pulmonary edema. 2. Small pleural effusions with bibasilar consolidation. ACT 112: Negative or not required by law. The above report was generated using voice recognition software. It may contain grammatical, syntax o r spelling errors. Electronically signed by: Derrick Lang M.D. 09/24/2024 10:09 AM
[2024-09-24 10:19] LABS: Albumin Globulin Ratio 1.6 (0.9-2); Albumin Level 3.7 gm/dl (3.4-5.0); BUN Creatinine Ratio 17.5 (10-20); Bilirubin,Total 0.9 mg/dl (0.2-1.0); Creatinine Clr Calc Pharmacy 29.6 ml/min; Globulin 2.3 gm/dl (2.5-4.0); Potassium 3.8 mmol/L (3.5-5.1)
--- NOTE | 2024-09-24 10:23 | Emergency Department Note ---
History of Present Illness General Chief complaint: Respiratory Distress Stated complaint: Respiratory Distress Time Seen by Provider: 09/24/24 09:30 Source: patient, family (I talked to the and daughter both on the telephone and when they arrived in the ER), EMS (I did give ALS prehospital medical command and talk to the paramedics prior to arrival), RN notes reviewed and old records reviewed (09/17/24-CT of the head from recent fall) Mode of arrival: EMS Limitations: altered mental status History of Present Illness This patient is an 84-year-old male who comes in after having shortness of breath. He was started on BiPAP. The patient had a fall and had a head injury with extensive subarachnoid hemorrhages and was sent from here to [facility] on 1030, [facility]. Apparently he did have some aspiration at [place] as well. His says they were going to start him on some antibiotics and were worried about infection this morning but he did not yet get the antibiotics. The patient has been altered and unresponsive since his fall. Unable to give any further history. He does have a pacemaker and extensive cardiac history as well. Apparently his respiratory status got significantly worse this morning he seemed to stabilize on BiPAP on the way up Home Medications Medication Instructions Recorded Confirmed Type folic acid 400 mcg tablet 0.4 mg PO QAM 02/22/22 09/24/24 History acetaminophen 650 mg 650 mg PO Q4H PRN Pain 05/03/23 09/24/24 History tablet,extended release (Arthritis Pain Relief (acetaminophen) ER) latanoprost 0.005 % eye drops 1 drp OPB HS 06/21/23 09/24/24 History (Xalatan) lancets 28 gauge (FreeStyle #300 ea 08/05/23 08/17/24 Rx Lancets) finasteride 5 mg tablet (Proscar) 5 mg PO HS #90 tabs 10/31/23 09/24/24 Rx ascorbic acid (vitamin C) 500 mg 500 mg PO Q2D 11/29/23 09/24/24 History tablet (Vitamin C) cholecalciferol (vitamin D3) 50 50 mcg PO QPM 11/29/23 09/24/24 History mcg (2,000 unit) tablet (Vitamin D3) clopidogrel 75 mg tablet (Plavix) 75 mg PO PM #90 tabs 02/05/24 09/24/24 Rx blood sugar diagnostic (FreeStyle #100 ea 02/17/24 08/17/24 Rx Lite Strips) pantoprazole 20 mg tablet,delayed 20 mg PO DAILYBB 05/01/24 09/24/24 History release (Protonix) levothyroxine 50 mcg tablet 50 mcg PO UD 05/29/24 09/24/24 History (Synthroid) phenazopyridine 200 mg tablet 200 mg PO UD PRN URINARY PAIN 05/29/24 09/24/24 History (Pyridium) pravastatin 10 mg tablet 10 mg PO QAM #90 tabs 06/23/24 09/24/24 Rx ferrous sulfate [Iron (ferrous 1 tab PO UD 07/08/24 09/24/24 History sulfate)] sodium chloride-aloe vera nasal 1 spray intranasal DAILY PRN nasal 07/08/24 09/24/24 Rx spray (Byron Saline Gel nasal spray) congestion #22 mL escitalopram oxalate 5 mg tablet 5 mg PO QAM #30 tabs 08/18/24 09/24/24 Rx blood-glucose meter (FreeStyle #1 ea 08/21/24 Rx Lite Meter kit) glimepiride 2 mg tablet 2 mg PO BID #60 tabs 09/07/24 09/24/24 Rx oxybutynin chloride 5 mg tablet 5 mg PO UD PRN Bladder Spasms 09/24/24 09/24/24 History Allergies Allergy/AdvReac Type Severity Reaction Status Date / Time gluten Allergy Intermediate GI symptoms Verified 08/17/24 10:09 Penicillins Allergy Mild Rash Verified 08/17/24 10:09 Sulfa (Sulfonamide Allergy Mild Rash Verified 08/17/24 10:09 Antibiotics) cyclobenzaprine Allergy Unknown Unknown Verified 08/17/24 10:09 fosfomycin AdvReac Intermediate Dizziness Verified 08/17/24 10:09 oxycodone AdvReac Intermediate Hallucinati Verified 08/17/24 10:09 ons Grglbev-LRO-DgP Reductase AdvReac Intermediate Muscle Verified 08/17/24 10:09 Inhibitor weakness, [Rvrzqmk-Uzi-Tnw Reductase brain fog Inhibitor] tramadol AdvReac Intermediate Hallucinati Verified 08/17/24 10:09 ons Past Med/Surg History Problem List (Updated 11/07/24 @ 14:50 by Adan Rueda MD) Altered mental status (Acute) CHF (congestive heart failure) (Acute) SAH (subarachnoid hemorrhage) (Acute) Pneumonia (Acute) Elevated troponin (Acute) Respiratory failure (Acute) Fall (Acute) Subarachnoid hemorrhage (Acute) Chronic anticoagulation Epistaxis (HFpEF) heart failure with preserved ejection fraction Urothelial carcinoma of bladder Anemia (Acute) Hematuria (Acute) Cystitis (Acute) Acute kidney injury superimposed on CKD Diabetes mellitus, type 2 Hematuria History of recurrent UTIs Acute on chronic diastolic CHF (congestive heart failure) Left foot drop Acute pain of left hip (Acute) CHI (closed head injury) (Acute) Accidental fall (Acute) Cervical strain (Acute) Acute head trauma (Acute) Fall (Acute) Rotator cuff arthropathy of both shoulders Encounter for removal of nasal packing (Acute) Headache (Acute) Acute anterior epistaxis (Acute) Perianal abscess (Acute) Status post right knee replacement Right leg pain History of excision of lamina of lumbar vertebra for decompression of spinal cord L5-S1 Degenerative spondylolisthesis Lumbar back pain Mild cognitive impairment Pacemaker lead malfunction Incontinence Chronic diastolic CHF (congestive heart failure) Generalized weakness Pneumonia Hyperkalemia Fatigue Right shoulder pain Stage III pressure ulcer of sacral region (Acute) 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 Coagulase-negative staphylococcal infection Urinary tract obstruction Sacral ulcer Encounter for pre-operative examination Bacteremia due to Gram-positive bacteria Troponin level elevated Acute hyperglycemia (Acute) Hypoxia (Acute) Aspiration pneumonia of right upper lobe (Acute) Sepsis (Acute) Diabetes mellitus Cardiomyopathy Nausea and vomiting GERD (gastroesophageal reflux disease) Hypotension Sepsis Urinary tract infection Acute respiratory failure with hypoxia Aspiration pneumonia Current use of proton pump inhibitor Lower urinary tract symptoms (LUTS) Incomplete emptying of bladder Urinary symptom or sign Systolic CHF, chronic PARDO (dyspnea on exertion) Pulsatile tinnitus of both ears R>L Sensorineural hearing loss of both ears Abnormal finding of foot H/O: stroke Hand arthritis Abdominal discomfort REASON FOR UPCOMING PROCEDURE: DISCOMFORT BLADDER OR COLON AREA / CAN'T DIFFERENTIATE WHERE FROM RESOLVED OVER LAST FEW WEEKS Need for cardiac rehabilitation intervention [facility] [place] Dark stools S/P CABG x 3 05/2022>psu gina Atypical chest pain Cardiomyopathy follows Dr. Hollingsworth Orthostatic hypotension Pacemaker Sacral decubitus ulcer CAD (coronary artery disease) CABG x3 (05/2022) Gait instability Biochemically recurrent malignant neoplasm of prostate Mobitz type 1 second degree AV block Carotid artery stenosis Esophageal dysphagia Dysuria Ganglion, finger joint of left hand Right rotator cuff tear Dyslipidemia 1st degree AV block IVCD (intraventricular conduction defect) Status post placement of implantable loop recorder Vitamin D deficiency Stage III chronic kidney disease Spinal stenosis of lumbar region S/P knee replacement Obesity (BMI 30.0-34.9) Neuroendocrine tumor Memory loss Internal hemorrhoids Hypertension Esophageal stricture Enlarged prostate with lower urinary tract symptoms (LUTS) Disc degeneration, lumbar Diabetic peripheral neuropathy Controlled type 2 diabetes mellitus with chronic kidney disease Chronic knee pain Cerebrovascular disease Carotid artery stenosis Benign paroxysmal positional vertigo Benign colonic polyp Asthma Anemia Hemorrhagic cystitis (~03/22/23) Hypercholesteremia TIA (transient ischemic attack) (~2001) Medical History Thrombocytopenia History of aspiration pneumonia per note 2022 Asthma Rotator cuff tear right>being tx by [place] [facility] (steroid injection) Mild cognitive disorder Kidney disease ? stage>followed by Dr. Hu Acid reflux Hx of basal cell carcinoma Depression Neuropathy CHF (congestive heart failure) Cardiomyopathy History of myocardial infarction 2021 Hyperlipidemia Hypertension Sacral ulcer Being treated by [facility] wound care>pressure ulcer "healing" BPH (benign prostatic hyperplasia) Hx: UTI (urinary tract infection) [facility] admission- sepsis 08/2023 Pacemaker Medtronic placed 05/2022>"placed d/t heart failure" Last check 04/10 JUMA/Darrick Low iron Brain TIA ? TIA vs CVA (2001)- patient reports left sided weakness with occasional "toe drop" r/t 2001 event- reason for Plavix Orthostatic hypotension Arthritis Pancreatic tumor ? tumor/cyst- yearly surveillance imaging GERD (gastroesophageal reflux disease) History of asthma History of prostate cancer Treated with radiation, no surgery Syncope Remote hx years ago, has a loop recorder in place>no recent episodes Hypothyroidism Surgical History History of coronary artery bypass graft 2021>3 vessels at [place] History of prostate surgery radiation tx History of urologic surgery Rezum procedure History of anesthesia reaction Trouble coming out of knee replacement + CABG History of cardiac cath 02/2022- no stents > CABG x3 History of cataract surgery right/left History of esophagogastroduodenoscopy (EGD) H/O colonoscopy with polypectomy [place] teeth removed S/P lumbar laminectomy History of loop recorder History of knee replacement Right History of tonsillectomy and adenoidectomy H/O hernia repair As toddler Hx of cholecystectomy Family History Brother Colon cancer Prostate cancer Grandfather Rectal cancer Unknown Cancer Mother Diabetes Congestive heart failure Stroke Hypertension Heart disease Grandmother (Paternal) Stroke Grandfather (Maternal) Myocardial infarction Other No family history of adverse response to anesthesia No family history of bleeding disorder Denies family history of Ovarian cancer Breast cancer Social History Smoking Status: Never smoker Tobacco Type: Pipe Cigarettes Per Day: One pipe per day; Second Hand Exposure: No; Do You Dip or Chew Tobacco: No; Hx Alcohol Use: No Hx Substance Use: No Preferred Language: Albanian Communication Ability: Effective Visual Impairment: No Limitations Hearing Ability: Use of Hearing Aid Dining Room Maid Required: No Beliefs That Will Affect Care: Cheondoism marital status: Current Living Situation: Spouse and Personal Care Facility current occupational status: retired current occupation: Retired How many Children do You have: 3 Feels Safe at Home: Yes Childhood Exposure to Second-Hand Smoke: Yes Diet: gluten free and lactose free caffeine: No Dental Care, Regularly: Yes Physical Activity Frequency: Daily Seatbelt Use: always Sunscreen Use: Yes Assistive Devices: Cane and Walker Review of Systems A total of 10 systems reviewed and were otherwise negative Physical Exam Vital Signs Vital Signs - 24 hr 09/24/24 09:26 09/24/24 09:26 09/24/24 09:26 Temperature 36.9 C Temperature Source Axillary Pulse Rate 95 H Pulse Rate [Apical] Pulse Rhythm Regular Pulse Rhythm [Apical] Pulse Strength Normal Pulse Strength [Apical] Respiratory Rate 22 Respiratory Effort / Characteristics Non-Labored Spontaneous Non-Labored Spontaneous Respiratory Depth Normal Normal Respiratory Pattern Regular Blood Pressure 162/115 H Blood Pressure [Right Arm] Blood Pressure Mean 130 Blood Pressure Mean [Right Arm] Blood Pressure Position Semi-fowlers Blood Pressure Position [Right Arm] Pulse Oximetry 98 98 Oxygen Delivery Method CPAP CPAP CPAP Fraction of Inspired Oxygen SaO2/FiO2 Ratio Sepsis Recent Fever Within 48 Hours No Sepsis New/Unexplained Change in Mental Status N/A Sepsis Action Taken by Nursing No Action Required 09/24/24 09:26 09/24/24 09:27 09/24/24 09:33 Temperature 36.9 C Temperature Source Axillary Pulse Rate 99 H 97 H Pulse Rate [Apical] 95 H Pulse Rhythm Regular Pulse Rhythm [Apical] Regular Pulse Strength Pulse Strength [Apical] Normal Respiratory Rate 22 31 H 22 Respiratory Effort / Characteristics Non-Labored Spontaneous Spontaneous Respiratory Depth Normal Respiratory Pattern Regular Blood Pressure Blood Pressure [Right Arm] Blood Pressure Mean Blood Pressure Mean [Right Arm] Blood Pressure Position Blood Pressure Position [Right Arm] Pulse Oximetry 98 98 98 Oxygen Delivery Method CPAP CPAP Fraction of Inspired Oxygen 35 SaO2/FiO2 Ratio Sepsis Recent Fever Within 48 Hours Sepsis New/Unexplained Change in Mental Status Sepsis Action Taken by Nursing 09/24/24 09:34 09/24/24 10:03 09/24/24 11:30 Temperature Temperature Source Pulse Rate 100 H Pulse Rate [Apical] 93 H 85 Pulse Rhythm Pulse Rhythm [Apical] Regular Pulse Strength Pulse Strength [Apical] Normal Respiratory Rate 24 29 H Respiratory Effort / Characteristics Respiratory Depth Shallow Respiratory Pattern Gasping Gasping Blood Pressure Blood Pressure [Right Arm] 161/101 H 140/70 Blood Pressure Mean Blood Pressure Mean [Right Arm] 121 93 Blood Pressure Position Blood Pressure Position [Right Arm] Lying Lying Pulse Oximetry 97 98 Oxygen Delivery Method CPAP BiPAP Fraction of Inspired Oxygen 35 SaO2/FiO2 Ratio 277 Sepsis Recent Fever Within 48 Hours Sepsis New/Unexplained Change in Mental Status Sepsis Action Taken by Nursing 09/24/24 11:41 09/24/24 12:31 09/24/24 13:00 Temperature Temperature Source Pulse Rate 83 Pulse Rate [Apical] 84 79 Pulse Rhythm Pulse Rhythm [Apical] Pulse Strength Pulse Strength [Apical] Respiratory Rate 25 H 29 H 20 Respiratory Effort / Characteristics Spontaneous Respiratory Depth Respiratory Pattern Gasping Gasping Blood Pressure Blood Pressure [Right Arm] 164/83 H 136/75 Blood Pressure Mean Blood Pressure Mean [Right Arm] 110 95 Blood Pressure Position Blood Pressure Position [Right Arm] Lying Lying Pulse Oximetry 96 97 98 Oxygen Delivery Method BiPAP BiPAP Fraction of Inspired Oxygen 35 SaO2/FiO2 Ratio Sepsis Recent Fever Within 48 Hours Sepsis New/Unexplained Change in Mental Status Sepsis Action Taken by Nursing 09/24/24 13:26 09/24/24 13:28 09/24/24 14:06 Temperature Temperature Source Pulse Rate 93 H 104 H Pulse Rate [Apical] 99 H Pulse Rhythm Pulse Rhythm [Apical] Pulse Strength Pulse Strength [Apical] Respiratory Rate 27 H 29 H Respiratory Effort / Characteristics Spontaneous Respiratory Depth Respiratory Pattern Gasping Blood Pressure Blood Pressure [Right Arm] 173/102 H Blood Pressure Mean Blood Pressure Mean [Right Arm] 125 Blood Pressure Position Blood Pressure Position [Right Arm] Lying Pulse Oximetry 99 99 Oxygen Delivery Method BiPAP Fraction of Inspired Oxygen 35 SaO2/FiO2 Ratio Sepsis Recent Fever Within 48 Hours Sepsis New/Unexplained Change in Mental Status Sepsis Action Taken by Nursing General: Ill-appearing older male who is on BiPAP but otherwise in no acute distress. Nonresponsive HEENT: Normal cephalic atraumatic. Pupils are equal round and reactive to light. Extraocular movements are intact. Oropharynx is pink with moist mucous membranes. No swelling of the mouth lips or tongue. He does have some dried blood or food in the back of his throat on the left. Neck: Supple with a midline trachea. No meningeal signs or stiffness, no JVD or bruits. No Stridor. Chest: Scattered rhonchi to auscultation bilaterally. Mild increased work of breathing. Heart: Regular rate and rhythm without murmurs or gallops. Abdomen: Soft nontender, nondistended without rebound guarding or rigidity. Extremities: No cyanosis clubbing or edema. No calf tenderness or assymetry Spine/Back. Non tender to palpation. No CVA tenderness Skin: Good turgor without rashes. Neurologic exam: Nonresponsive Course Administered Medications Discontinued Medications Sodium Chloride (Nss) 1,000 mls @ 999 mls/hr IV .Q1H1M ONE Stop: 09/24/24 10:38 Last Admin: 09/24/24 10:01 Dose: 999 mls/hr Documented By: CAW Cefepime HCl (Maxipime 2000mg) 2,000 mg in 20 mls @ 5 mls/min IV NOW ONE Stop: 09/24/24 10:03 Last Admin: 09/24/24 10:01 Dose: 5 mls/min Documented By: CAW Potassium Chloride/Sodium Chloride (1/2 Nss + 20meq Kcl 1000ml) 20 meq in 1,000 mls @ 200 mls/hr IV .Q5H JERMAINE Stop: 09/24/24 16:29 Last Admin: 09/24/24 11:57 Dose: 200 mls/hr Documented By: CC Metronidazole (Flagyl) 500 mg in 100 mls @ 100 mls/hr IV NOW STA; Protocol Stop: 09/24/24 13:13 Last Infusion: 09/24/24 13:37 Dose: Infused Documented By: Admin: 09/24/24 12:32 Dose: 100 mls/hr Documented By: CC Critical Care Time Critical Care Time: Yes Total Critical Care Time: 45 Due to the patient's respiratory failure, altered mental status, need for BiPAP, IV fluids IV medications frequent reassessment, extensive discussion with family and consultants, I have personally spent greater than 45 minutes of critical care time in the direct management of this patient. This includes bedside care, interpretation of diagnostic studies, and testing, discussion with consultants, patient, and family members, and other required patient management activities. This 45 minutes is in excess of all separately billable procedures. Medical Decision Making Differential Diagnosis Pneumonia, aspiration, head injury, neurologic, cardiac, CHF, PE, electrolyte or metabolic abnormality, Medical Records Attestation: I reviewed the patient's medical records. Home Medications Current Medication List: was personally reviewed by me Laboratory Data Attestation: I reviewed the patient's lab results. 09/24/24 09:30 09/24/24 12:52 Lab Results 09/24/24 09/24/24 09/24/24 Range/Units 09:28 09:30 09:37 WBC 18.40 H (4.8-10.8) K/ul RBC 3.63 L (4.70-6.10) M/uL Hgb 9.9 L (14.0-18.0) g/dl POC Hgb 10.2 L (14.0-18.0) g/dl Hct 31.6 L (42.0-52.0) % POC Hct 30 L (42-52) % MCV 87.1 (80.0-100.0) fL MCH 27.3 (25.0-34.0) pg MCHC 31.3 L (32.0-36.0) g/dL RDW Std Deviation 49.1 H (36.4-46.3) fL RDW Coeff of Vinny 15.9 H (11.5-14.5) % Plt Count 188 (130-400) K/uL MPV 10.9 (9.4-12.4) fL Absolute Nucleated RBC 0.06 (0.00-0.12) K/uL Nucleated RBC % (auto) 0.3 % Neutrophils % (Manual) 80 % Lymphocytes % (Manual) 4 % Monocytes % (Manual) 12 % Metamyelocytes % (Man) 1 % Myelocytes % (Man) 3 % Neutrophils # (Manual) 14.72 H (1.40-6.50) K/uL Total Absolute Neuts 14.72 H (1.4-6.5) K/uL Lymphocytes # (Manual) 0.74 L (1.2-3.4) K/uL Total Abs Lymphocytes 0.74 L (1.2-3.4) K/uL Monocytes # (Manual) 2.21 H (0.11-0.59) K/uL Metamyelocytes # (Man) 0.18 H (0-0) K/uL Myelocytes # (Manual) 0.55 H (0-0) K/uL Echinocytes 1+ PT 12.0 (9.0-12.0) Seconds INR 1.1 (0.9-1.1) APTT 26 (21-31) Seconds PTT Ratio 1.0 Specimen Type POC pH (7.35-7.45) POC pCO2 (35-46) mmHg POC pO2 (80-95) mmHg POC HCO3 (19-24) bella/L POC Base Excess (-9-1.8) bella/L POC ABG O2 Sat (90-95) % POC Sodium 149 H (135-144) mmol/L Sodium 150 H (136-145) mmol/L POC Potassium 3.7 (3.3-5.0) mmol/L Potassium 3.8 (3.5-5.1) mmol/L POC Chloride 113 H (101-112) mmol/L Chloride 115 H (98-107) mmol/L Carbon Dioxide 25 (21-32) mmol/L POC Total CO2 22 L (24-31) mmol/L Anion Gap 10 (3-11) POC Anion Gap 18.0 (16-25) mmol/L POC BUN 33 H (7-18) mg/dl BUN 37 H (6-23) mg/dl Creatinine 2.11 H (0.6-1.4) mg/dl POC Creatinine 2.3 H (0.6-1.3) mg/dl Est Cr Clr Drug Dosing 29.6 ml/min eGFR 30.67 BUN/Creatinine Ratio 17.5 (10-20) Glucose 186 H (70-99(Fasting)) mg/dl POC Glucose 181 H (70-99) mg/dl POC Glucose (other) 182 H (70-99) mg/dl Lactate (0.4-2.0) mmol/L Calcium 9.0 (8.6-10.3) mg/dl POC Ioniz Calcium Genoveva 1.28 (1.12-1.32) mmol/l Total Bilirubin 0.9 (0.2-1.0) mg/dl AST 34 (13-39) U/L ALT 35 (7-52) U/L Alkaline Phosphatase 72 (34-104) U/L Troponin I High Sens 117.8 H* (0-20) pg/ml B-Natriuretic Peptide 4067 H (0-100) pg/ml Total Protein 6.0 (6.0-8.3) gm/dl Albumin 3.7 (3.4-5.0) gm/dl Globulin 2.3 L (2.5-4.0) gm/dl Albumin/Globulin Ratio 1.6 (0.9-2) Lipase 4 L (11-82) U/L Procalcitonin (0-0.5) ng/ml SARS-CoV-2, RNA, NAAT (NEGATIVE) 09/24/24 09/24/24 09/24/24 Range/Units 09:39 11:09 11:17 WBC (4.8-10.8) K/ul RBC (4.70-6.10) M/uL Hgb (14.0-18.0) g/dl POC Hgb 8.5 L (14.0-18.0) g/dl Hct (42.0-52.0) % POC Hct 25 L (42-52) % MCV (80.0-100.0) fL MCH (25.0-34.0) pg MCHC (32.0-36.0) g/dL RDW Std Deviation (36.4-46.3) fL RDW Coeff of Vinny (11.5-14.5) % Plt Count (130-400) K/uL MPV (9.4-12.4) fL Absolute Nucleated RBC (0.00-0.12) K/uL Nucleated RBC % (auto) % Neutrophils % (Manual) % Lymphocytes % (Manual) % Monocytes % (Manual) % Metamyelocytes % (Man) % Myelocytes % (Man) % Neutrophils # (Manual) (1.40-6.50) K/uL Total Absolute Neuts (1.4-6.5) K/uL Lymphocytes # (Manual) (1.2-3.4) K/uL Total Abs Lymphocytes (1.2-3.4) K/uL Monocytes # (Manual) (0.11-0.59) K/uL Metamyelocytes # (Man) (0-0) K/uL Myelocytes # (Manual) (0-0) K/uL Echinocytes PT (9.0-12.0) Seconds INR (0.9-1.1) APTT (21-31) Seconds PTT Ratio Specimen Type Arterial POC pH 7.24 L (7.35-7.45) POC pCO2 46 (35-46) mmHg POC pO2 60 L (80-95) mmHg POC HCO3 20 (19-24) bella/L POC Base Excess -7.0 (-9-1.8) bella/L POC ABG O2 Sat 86.0 L (90-95) % POC Sodium 147 H (135-144) mmol/L Sodium (136-145) mmol/L POC Potassium 3.6 (3.3-5.0) mmol/L Potassium (3.5-5.1) mmol/L POC Chloride (101-112) mmol/L Chloride (98-107) mmol/L Carbon Dioxide (21-32) mmol/L POC Total CO2 21 L (24-31) mmol/L Anion Gap (3-11) POC Anion Gap (16-25) mmol/L POC BUN (7-18) mg/dl BUN (6-23) mg/dl Creatinine (0.6-1.4) mg/dl POC Creatinine (0.6-1.3) mg/dl Est Cr Clr Drug Dosing ml/min eGFR BUN/Creatinine Ratio (10-20) Glucose (70-99(Fasting)) mg/dl POC Glucose (70-99) mg/dl POC Glucose (other) (70-99) mg/dl Lactate 1.1 (0.4-2.0) mmol/L Calcium (8.6-10.3) mg/dl POC Ioniz Calcium Genoveva (1.12-1.32) mmol/l Total Bilirubin (0.2-1.0) mg/dl AST (13-39) U/L ALT (7-52) U/L Alkaline Phosphatase (34-104) U/L Troponin I High Sens (0-20) pg/ml B-Natriuretic Peptide (0-100) pg/ml Total Protein (6.0-8.3) gm/dl Albumin (3.4-5.0) gm/dl Globulin (2.5-4.0) gm/dl Albumin/Globulin Ratio (0.9-2) Lipase (11-82) U/L Procalcitonin 0.09 (0-0.5) ng/ml SARS-CoV-2, RNA, NAAT NEGATIVE (NEGATIVE) 09/24/24 Range/Units 12:52 WBC (4.8-10.8) K/ul RBC (4.70-6.10) M/uL Hgb (14.0-18.0) g/dl POC Hgb (14.0-18.0) g/dl Hct (42.0-52.0) % POC Hct (42-52) % MCV (80.0-100.0) fL MCH (25.0-34.0) pg MCHC (32.0-36.0) g/dL RDW Std Deviation (36.4-46.3) fL RDW Coeff of Vinny (11.5-14.5) % Plt Count (130-400) K/uL MPV (9.4-12.4) fL Absolute Nucleated RBC (0.00-0.12) K/uL Nucleated RBC % (auto) % Neutrophils % (Manual) % Lymphocytes % (Manual) % Monocytes % (Manual) % Metamyelocytes % (Man) % Myelocytes % (Man) % Neutrophils # (Manual) (1.40-6.50) K/uL Total Absolute Neuts (1.4-6.5) K/uL Lymphocytes # (Manual) (1.2-3.4) K/uL Total Abs Lymphocytes (1.2-3.4) K/uL Monocytes # (Manual) (0.11-0.59) K/uL Metamyelocytes # (Man) (0-0) K/uL Myelocytes # (Manual) (0-0) K/uL Echinocytes PT (9.0-12.0) Seconds INR (0.9-1.1) APTT (21-31) Seconds PTT Ratio Specimen Type POC pH (7.35-7.45) POC pCO2 (35-46) mmHg POC pO2 (80-95) mmHg POC HCO3 (19-24) bella/L POC Base Excess (-9-1.8) bella/L POC ABG O2 Sat (90-95) % POC Sodium (135-144) mmol/L Sodium 149 H (136-145) mmol/L POC Potassium (3.3-5.0) mmol/L Potassium 3.8 (3.5-5.1) mmol/L POC Chloride (101-112) mmol/L Chloride 117 H (98-107) mmol/L Carbon Dioxide 21 (21-32) mmol/L POC Total CO2 (24-31) mmol/L Anion Gap 11 (3-11) POC Anion Gap (16-25) mmol/L POC BUN (7-18) mg/dl BUN 38 H (6-23) mg/dl Creatinine 1.99 H (0.6-1.4) mg/dl POC Creatinine (0.6-1.3) mg/dl Est Cr Clr Drug Dosing 31.4 ml/min eGFR 32.91 BUN/Creatinine Ratio 19.1 (10-20) Glucose 188 H (70-99(Fasting)) mg/dl POC Glucose (70-99) mg/dl POC Glucose (other) (70-99) mg/dl Lactate (0.4-2.0) mmol/L Calcium 8.8 (8.6-10.3) mg/dl POC Ioniz Calcium Genoveva (1.12-1.32) mmol/l Total Bilirubin (0.2-1.0) mg/dl AST (13-39) U/L ALT (7-52) U/L Alkaline Phosphatase (34-104) U/L Troponin I High Sens 100.2 H* (0-20) pg/ml B-Natriuretic Peptide (0-100) pg/ml Total Protein (6.0-8.3) gm/dl Albumin (3.4-5.0) gm/dl Globulin (2.5-4.0) gm/dl Albumin/Globulin Ratio (0.9-2) Lipase (11-82) U/L Procalcitonin (0-0.5) ng/ml SARS-CoV-2, RNA, NAAT (NEGATIVE) Imaging Data Attestation: I personally reviewed and interpreted this imaging study as follows: My Impression: Head CTno mass effect seen. Chest x-raythere are some haziness in the right base concerning for pneumonia he may have a degree of fluid overload as well Radiologist's Impression: Head CT 09/24/24 09:32 CT OF THE HEAD WITHOUT CONTRAST CLINICAL HISTORY: recent head injury COMPARISON STUDY: Head CT September 17, 2024. TECHNIQUE: Helical axial images of the head were obtained without IV contrast. Automated exposure control was utilized for the study. A dose lowering technique was utilized adhering to the principles of ALARA. FINDINGS: This exam is mildly compromised by motion artifact. The ventricular system is stable. Basal cisterns are patent. Scattered foci of acute subarachnoid hemorrhage are noted. The amount of subarachnoid hemorrhage has decreased when compared to CT of September 17, 2024. There is a small to moderate amount of hemorrhage. No subdural or epidural hemorrhage is present. There is no evidence for herniation. There are no findings to suggest acute dural sinus thrombosis or acute territorial infarct. There are no calvarial fractures. IMPRESSION: 1. Small to moderate amount of scattered acute subarachnoid hemorrhage, decreased in amount since CT of September 17, 2024. 2. No calvarial fractures. ACT 112: Negative or not required by law. Electronically signed by: Santi Faustin M.D. 09/24/2024 10:02 AM Chest X-Ray 09/24/24 09:33 XR chest 1V portable HISTORY: 84 years-old Male Chest pain, nonspecific COMPARISON: 09/17/2024 TECHNIQUE: AP view the chest FINDINGS: Cardiac silhouette is enlarged. Median sternotomy. Electronic device projects over the left heart border. Left subclavian pacer. Mediastinal surgical clips. No pneumothorax. Layering pleural effusions with bibasilar consolidation. Interstitial pulmonary edema. Right upper quadrant surgical clips. The bones appear grossly intact. IMPRESSION: 1. Cardiomegaly with interstitial pulmonary edema. 2. Small pleural effusions with bibasilar consolidation. ACT 112: Negative or not required by law. The above report was generated using voice recognition software. It may contain grammatical, syntax or spelling errors. Electronically signed by: Derrick Lang M.D. 09/24/2024 10:09 AM Venous Doppler Study 09/24/24 11:20 BILATERAL LOWER EXTREMITY VENOUS DOPPLER CLINICAL HISTORY: r/o DVT high risk COMPARISON STUDY: Left lower extremity venous Doppler ultrasound January 30, 2023. TECHNIQUE: Sonography of the deep venous system of the bilateral lower extremities was performed. Compression and augmentation were evaluated. FINDINGS: The bilateral common femoral, superficial femoral and popliteal veins were compressible. Augmentation was normal. Flow was shown within the deep calf vessels. IMPRESSION: No evidence of deep venous thrombus within the bilateral lower extremities. ACT 112: Negative or not required by law. Electronically signed by: Satni Faustin M.D. 09/24/2024 1:46 PM ECG Data Attestation: I personally reviewed and interpreted this ECG as follows: Indication: + SOB/dyspnea Rate (beats per minute): 95 Rhythm: + normal sinus ECG Intervals/blocks: + First degree AV block and + Right Bundle branch block ECG [place]: + Normal ECG ST segments: + Normal ST segments ECG Findings: + PVCs Comparison ECG Date: from (09/17/24) Change: the following changes noted MDM Narrative This patient comes in described above. I did take ALS medical command prior to arrival. I saw the patient immediately upon arrival he does seem to have stabilized on the BiPAP. Because of his critical illness he was placed directly into our resuscitation room a 1. His vitals were stable with the BiPAP he was unresponsive. According to the paramedics he has been unresponsive since he fell a week ago. Blood sugar was not abnormal clinically he does look dry his sodium came back elevated at 115 his BUN and creatinine are elevated compared to baseline he was given gentle fluid bolus of 250 cc chest x-ray does show possible pneumonia and potential fluid overload as well in light of this I was judicious with the IV fluids he did receive additional 250 cc and tolerated that well also. EKG shows no ischemic changes troponin is elevated as is BNP which could be related to cardiac event. His white count is elevated. He was empirically given cefepime 2 g IV. I talked to family on the telephone as well as when they arrived. I talked him at length about CODE STATUS. The and daughter feel that he would not want to be intubated but would want CPR. This was my initial discussions with them and they will further discuss this with the hospitalist. The patient does need to be admitted for respiratory distress altered mental status sepsis and CHF. He remains critically ill. I did discuss the case at length with Dr. Wood, the [facility] hospitalist in consultation. Continuous cardiac monitoring: Orders placed in EMR for continuous cardiac monitoring call upon my evaluation patient noted to be in sinus rhythm with a rate of of 100 Impression & Plan Respiratory failure, Elevated troponin, Pneumonia, SAH (subarachnoid hemorrhage), CHF (congestive heart failure), Altered mental status Discharge Plan Visit Data Chief Complaint: Respiratory Distress Stated Complaint: Respiratory Distress ED Provider: Adan Rueda Discharge Problem: Respiratory failure, Elevated troponin, Pneumonia, SAH (subarachnoid hemorrhage), CHF (congestive heart failure), Altered mental status Patient Disposition: Admitted As Inpatient Discharge Instructions Interventions: ED Discharge Assessment Last Done: 09/24/24 14:20 Prescriptions Prescriptions: No Action (DME) lancets [FreeStyle Lancets] 28 gauge misc See Rx Instructions .Route Qty: 300 3RF Rx Instructions: TEST THREE TIMES DAILY. DX: E11.9 finasteride [Proscar] 5 mg tablet 5 mg PO HS Qty: 90 3RF clopidogrel [Plavix] 75 mg tablet 75 mg PO PM Qty: 90 3RF Patient Comments: on hold until after surgery (DME) FreeStyle Lite Strips Strip See Rx Instructions .Route Qty: 100 3RF Rx Instructions: test once daily pravastatin 10 mg tablet 10 mg PO QAM Qty: 90 3RF Rx Instructions: last filled 06/23 90 day supply This is listed as an allergy, but listed on medications. escitalopram oxalate 5 mg tablet 5 mg PO QAM Qty: 30 5RF Rx Instructions: filled 06/18/24 90 day (DME) blood-glucose meter [FreeStyle Lite Meter] Kit See Rx Instructions .Route Qty: 1 0RF Rx Instructions: Test blood sugar three times daily DX:E11.9 glimepiride 2 mg tablet 2 mg PO BID Qty: 60 5RF Rx Instructions: last filled 08/13 30 day supply folic acid 400 mcg tablet 0.4 mg PO QAM Patient Comments: NOT IN STOCK AT PHARMACY , CURRENTLY OUT OF Rx Instructions: otc unable to verify acetaminophen [Arthritis Pain Relief (acetam)] 650 mg tablet extended release 650 mg PO Q4H PRN (Reason: Pain) Rx Instructions: otc unable to verify latanoprost [Xalatan] 0.005 % drops 1 drp OPB HS ferrous sulfate [Iron (ferrous sulfate)] 1 tab PO UD Rx Instructions: otc unable to verify Byron Saline Gel [place],Non-Aerosol 1 spray intranasal DAILY PRN (Reason: nasal congestion) Qty: 22 3RF Rx Instructions: last filled 07/09 30 day supply cholecalciferol (vitamin D3) [Vitamin D3] 50 mcg (2,000 unit) Tablet 50 mcg PO QPM Rx Instructions: otc unable to verify ascorbic acid (vitamin C) [Vitamin C] 500 mg Tablet 500 mg PO Q2D Rx Instructions: otc unable to verify pantoprazole [Protonix] 20 mg tablet,delayed release (DR/EC) 20 mg PO DAILYBB Rx Instructions: last filled 06/09 90 day supply levothyroxine [Synthroid] 50 mcg tablet 50 mcg PO UD Rx Instructions: 50 mcg po daily. last filled 12/23/23 90 days supply phenazopyridine [Pyridium] 200 mg tablet 200 mg PO UD PRN (Reason: URINARY PAIN) Rx Instructions: last filled 04/20/24 10 tablets TID oxybutynin chloride 5 mg tablet 5 mg PO UD PRN (Reason: Bladder Spasms) Rx Instructions: TAKE 1 TAB ORALLY EVERY TWELVE HOURS NEEDED FOR BLADDER SPASMS only filled for 10 tablets. Discharge Problem: Respiratory failure Qualifiers: Chronicity: acute Respiratory failure complication: hypoxia Qualified Code(s): J96.01 - Acute respiratory failure with hypoxia Pneumonia Qualifiers: Pneumonia type: due to unspecified organism Laterality: unspecified laterality Lung location: unspecified part of lung Qualified Code(s): J18.9 - Pneumonia, unspecified organism CHF (congestive heart failure) Qualifiers: Heart failure type: unspecified Heart failure chronicity: acute Qualified Code(s): I50.9 - Heart failure, unspecified Altered mental status Qualifiers: Altered mental status type: unspecified Qualified Code(s): R41.82 - Altered mental status, unspecified
[2024-09-24 10:25] LABS: ALC (manual) 0.74 K/uL (1.2-3.4); ANC (manual) 14.72 K/uL (1.4-6.5); Echinocytes 1+; Lymphocytes # (manual) 0.74 K/uL (1.2-3.4); Lymphocytes % (manual) 4 %; Metamyelocytes # (manual) 0.18 K/uL (0-0); Metamyelocytes % (manual) 1 %; Monocytes # (manual) 2.21 K/uL (0.11-0.59); Monocytes % (manual) 12 %; Myelocytes # (manual) 0.55 K/uL (0-0); Myelocytes % (manual) 3 %; Neutrophils # (manual) 14.72 K/uL (1.40-6.50); Neutrophils % (manual) 80 %
[2024-09-24 10:26] LABS: INR 1.1 (0.9-1.1); Partial Thromboplastin Time 26 Seconds (21-31)
[2024-09-24 10:28] LABS: Troponin I High Sensitivity 117.8 pg/ml (0-20)
--- NOTE | 2024-09-24 10:55 | History & Physical Report ---
Date of Service September 24, 2024 Assessment & Plan (1) Comfort measures only status: Plan: Sam was admitted unresponsive, hypoxic, and with concern for volume overload and aspiration pneumonia. Patient was at high risk of DVT with immobilization although has just been discharged following a subarachnoid hemorrhage treated at . Patient was admitted with treatment for aspiration pneumonia, rehydration for hypernatremia and reported poor p.o. intake, and assessment of underlying hypoxic respiratory failure. Patient was high risk for DVT with multiple recent risk factors not on pharmacal prophylaxis due to subarachnoid hemorrhage. D-dimer is elevated, subsequent CTA showed segmental and subsegmental PE,, Near occlusion of proximal bronchus, CHF with pleural effusions, in addition to a previously unknown necrotic mass/enhancing fluid collection at the anterior to right coracoid extended along the glenoid into the right axilla. Patient also with subsequent decline in respiratory status and repeat VBG with pH of 7.15. Case was discussed extensively with the patient's Corinne and daughter at the bedside. Patient was unable to contribute to conversation due to obtunded mental status. Various options were reviewed with patient's family. Patient's and daughter note that he would not want intubation or resuscitation in any circumstances, and would not want progression to any type of further surgical intervention. Given his progression with critical illness and subsequent development of blood clots in his lungs with treatment limited by recent intracranial bleed they would like to transition to comfort measures. Patient's Corinne reports that her top concern is that Sam is not in any pain or distress, and that he passes comfortably. Reviewed AEROSOL SUPERVISOR/hospice, and that AEROSOL SUPERVISOR involves focusing exclusively on patient's comfort and withdrawing all of her treatments including lab draws in anticipation of patient continuing to deteriorate and likely passing within the hospital. Patient's feels this is most consistent with her wishes and what Sam would want. Transition to AEROSOL SUPERVISOR. Patient is not alert enough to use a SENIOR APPLICATION PROGRAMMER pump or request medication; palliative protocol hydromorphone drip ordered. Ativan ordered. Glycopyrrolate on-call, lab draws and other medications discontinued. Patient transferred to third floor. Do not expect that patient will recover/stabilize to the extent that he would be able to return home for hospice and anticipate passing as inpatient. Food Service Utility Worker consult offered, patient's and daughter declined this at time of bedside reassessment. (2) Acute respiratory failure with hypoxia: Plan: Acute hypoxic respiratory failure 2/2 CHF, acute pulmonary emboli, +/- aspiration pneumonia Patient with aspiration event at [facility]. Does have a leukocytosis at 18 Covered for potential aspiration pneumonia with cefepime/Flagyl. MRSA nare negative. Clinically appears volume contracted does not have lower extremity edema but does have evidence of pulmonary edema on chest x-ray. BNP is elevated Is at high risk of DVT, patient was recently hospitalized at [facility] and has not been able to receive pharmacal prophylaxis for DVT due to subarachnoid hemorrhage. Initially was tachycardic and hypoxic, tachycardia is improving post fluids hypoxia persists. Lower extremity Dopplers are pending there is no calf asymmetry. Patient and family do not wish for intubation Procalcitonin is negative BMP is >4000 Lactate is 1.1 (3) Aspiration pneumonia: Plan: Treated with cefepime/Flagyl initially. Subsequently transition to AEROSOL SUPERVISOR. Patient also with a necrotic mass/fluid collection noted. Family does not wish to have any type of fluid aspiration or biopsy performed for diagnostic or therapeutic purposes and would like to focus exclusively on patient's comfort. (4) (HFpEF) heart failure with preserved ejection fraction: Plan: [facility] Heart failure with reduced ejection fraction With history of CABG Last EF 45-50% 2021 Entresto held EKG on admission is with right bundle redemonstrated; sinus; no acute ST/T wave changes Patient with evidence of pulmonary edema and bilateral pleural effusions. Additionally BNP is markedly elevated, although patient is also with renal dysfunction. Given poor p.o. intake, concurrent infection will defer diuresis to treatment of potential infections and follow-up CT prior to adding in Lasix CTA with evidence of congestive failure as noted Transitioned to AEROSOL SUPERVISOR (5) SAH (subarachnoid hemorrhage): Plan: Subarachnoid hemorrhage CThead stable/improving compared to prior. No evidence of recurrent or worsening bleed. Discharged from [facility] 09/23/2024 - Troponin elevated 117, downtrending at 100 on repeat. Suspect demand Transition to AEROSOL SUPERVISOR, see above History of Present Illness Primary Care Provider: Bryon Dinero DO Sam is an 84-year-old male with past medical history of TIA, type II DM, CVA, CAD with CABG x 3, cardiomyopathy, diastolic CHF, anemia, SCC of the prostate, and recent admission to [facility] with discharge 1 day ago after he was admitted for a subarachnoid hemorrhage which occurred in the setting of a fall while on Plavix. Patient was followed by neurocritical care at [facility], right vertebral artery diss ection was noted during that admission. At time of discharge 09/23/2024 if he was reportedly afebrile, ambulating, voiding spontaneously, tolerating p.o. and was discharged to skilled care. Subarachnoid hemorrhage remained stable on repeat imaging 09/19/2024 and blood pressure medicines were adjusted to maintain a systolic of less than 160 at that time. He presents to the ER 1 day later with increasing shortness of breath. Course at [facility] was complicated by aspiration while at [facility] but had otherwise looked well and had not been treated with antibiotics due to suspected pneumonitis without superimposed pneumonia at that time. He is recommended for admission for acute hypoxic respiratory failure suspect due to aspiration pneumonia +/- fluid overload due to interstitial pulmonary edema and small effusions noted on lung CT. No lobar pneumonia is noted on x-ray While at [facility] he was on SCDs, was not on chemical prophylaxis due to subarachnoid hemorrhage. He is tachycardic and hypoxic without a discrete aspiration pneumonia seen on chest x-ray, fluid congestion is noted Patient seen with his family at bedside. Patient is obtunded, is not able to answer any questions. No leg swelling, lungs are diminished. He does not awaken to noxious stimuli or follow commands Discussed with family. They would like conservative treatment with fluids for his hyponatremia and hydration, potential treatments of it underlying infection as able. Reviewed goals of care. They do confirm that he is DNR/DNI and would not want resuscitation in cardiopulmonary arrest and additionally if he had worsening respiratory status would not want progression to a ventilator/breathing tube. Reviewed ICU. Given his current progression they do not feel that aggressive interventions in the ICU would be within his goals and they do not want central lines or pressors should he clinically worsen. Goals of Care/Update 1800:D-dimer is elevated, subsequent CTA showed segmental a nd subsegmental PE,, Near occlusion of proximal bronchus, CHF with pleural effusions, in addition to a previously unknown necrotic mass/enhancing fluid collection at the anterior to right coracoid extended along the glenoid into the right axilla. Patient also with subsequent decline in respiratory status and repeat VBG with pH of 7.15 despite NIV. Case was discussed extensively with the patient's Corinne and daughter at the bedside. Patient was unable to contribute to conversation due to obtunded mental status. Various options were reviewed with patient's family. Patient's and daughter note that he would not want intubation or resuscitation in any circumstances, and would not want progression to any type of further surgical intervention. Given his progression with critical illness and subsequent development of blood clots in his lungs with treatment limited by recent intracranial bleed they would like to transition to comfort measures. Patient's Corinne reports that her top concern is that Sam is not in any pain or distress, and that he passes comfortably. Reviewed AEROSOL SUPERVISOR/hospice, and that AEROSOL SUPERVISOR involves focusing exclusively on patient's comfort and withdrawing all of her treatments including lab draws in anticipation of patient continuing to deteriorate and likely passing within the hospital. Patient's feels this is most consistent with her wishes and what Sam would want. Transition to AEROSOL SUPERVISOR. Patient is not alert enough to use a SENIOR APPLICATION PROGRAMMER pump or request medication; palliative protocol hydromorphone drip ordered. Ativan ordered. Glycopyrrolate on-call, lab draws and other medications discontinued. Patient transferred to third floor. Do not expect that patient will recover/stabilize to the extent that he would be able to return home for hospice and anticipate passing as inpatient. Food Service Utility Worker consult offered, patient's and daughter declined this at time of bedside reassessment. Allergies Allergy/AdvReac Type Severity Reaction Status Date / Time gluten Allergy Intermediate GI symptoms Verified 08/17/24 10:09 Penicillins Allergy Mild Rash Verified 08/17/24 10:09 Sulfa (Sulfonamide Allergy Mild Rash Verified 08/17/24 10:09 Antibiotics) cyclobenzaprine Allergy Unknown Unknown Verified 08/17/24 10:09 fosfomycin AdvReac Intermediate Dizziness Verified 08/17/24 10:09 oxycodone AdvReac Intermediate Hallucinati Verified 08/17/24 10:09 ons Utfrvgl-XQF-YmM Reductase AdvReac Intermediate Muscle Verified 08/17/24 10:09 Inhibitor weakness, [Lfohiuc-Vey-Jqq Reductase brain fog Inhibitor] tramadol AdvReac Intermediate Hallucinati Verified 08/17/24 10:09 ons Home Medications Medication Instructions Recorded Confirmed Type folic acid 400 mcg tablet 0.4 mg PO QAM 02/22/22 09/24/24 History acetaminophen 650 mg 650 mg PO Q4H PRN Pain 05/03/23 09/24/24 History tablet,extended release (Arthritis Pain Relief (acetaminophen) ER) latanoprost 0.005 % eye drops 1 drp OPB HS 06/21/23 09/24/24 History (Xalatan) lancets 28 gauge (FreeStyle #300 ea 08/05/23 08/17/24 Rx Lancets) finasteride 5 mg tablet (Proscar) 5 mg PO HS #90 tabs 10/31/23 09/24/24 Rx ascorbic acid (vitamin C) 500 mg 500 mg PO Q2D 11/29/23 09/24/24 History tablet (Vitamin C) cholecalciferol (vitamin D3) 50 50 mcg PO QPM 11/29/23 09/24/24 History mcg (2,000 unit) tablet (Vitamin D3) clopidogrel 75 mg tablet (Plavix) 75 mg PO PM #90 tabs 02/05/24 09/24/24 Rx blood sugar diagnostic (FreeStyle #100 ea 02/17/24 08/17/24 Rx Lite Strips) pantoprazole 20 mg tablet,delayed 20 mg PO DAILYBB 05/01/24 09/24/24 History release (Protonix) levothyroxine 50 mcg tablet 50 mcg PO UD 05/29/24 09/24/24 History (Synthroid) phenazopyridine 200 mg tablet 200 mg PO UD PRN URINARY PAIN 05/29/24 09/24/24 History (Pyridium) pravastatin 10 mg tablet 10 mg PO QAM #90 tabs 06/23/24 09/24/24 Rx ferrous sulfate [Iron (ferrous 1 tab PO UD 07/08/24 09/24/24 History sulfate)] sodium chloride-aloe vera nasal 1 spray intranasal DAILY PRN nasal 07/08/24 09/24/24 Rx spray ([place]i Saline Gel nasal spray) congestion #22 mL escitalopram oxalate 5 mg tablet 5 mg PO QAM #30 tabs 08/18/24 09/24/24 Rx blood-glucose meter (FreeStyle #1 ea 08/21/24 Rx Lite Meter kit) glimepiride 2 mg tablet 2 mg PO BID #60 tabs 09/07/24 09/24/24 Rx oxybutynin chloride 5 mg tablet 5 mg PO UD PRN Bladder Spasms 09/24/24 09/24/24 History Past Med/Surg History Problem List (Updated 09/24/24 @ 18:13 by Rolando Hernandes MD) Comfort measures only status Altered mental status (Acute) CHF (congestive heart failure) (Acute) SAH (subarachnoid hemorrhage) (Acute) Pneumonia (Acute) Elevated troponin (Acute) Respiratory failure (Acute) Fall (Acute) Subarachnoid hemorrhage (Acute) Chronic anticoagulation Epistaxis (HFpEF) heart failure with preserved ejection fraction Urothelial carcinoma of bladder Anemia (Acute) Hematuria (Acute) Cystitis (Acute) Acute kidney injury superimposed on CKD Diabetes mellitus, type 2 Hematuria History of recurrent UTIs Acute on chronic diastolic CHF (congestive heart failure) Left foot drop Acute pain of left hip (Acute) CHI (closed head injury) (Acute) Accidental fall (Acute) Cervical strain (Acute) Acute head trauma (Acute) Fall (Acute) Rotator cuff arthropathy of both shoulders Encounter for removal of nasal packing (Acute) Headache (Acute) Acute anterior epistaxis (Acute) Perianal abscess (Acute) Status post right knee replacement Right leg pain History of excision of lamina of lumbar vertebra for decompression of spinal cord L5-S1 Degenerative spondylolisthesis Lumbar back pain Mild cognitive impairment Pacemaker lead malfunction Incontinence Chronic diastolic CHF (congestive heart failure) Generalized weakness Pneumonia Hyperkalemia Fatigue Right shoulder pain Stage III pressure ulcer of sacral region (Acute) 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 Coagulase-negative staphylococcal infection Urinary tract obstruction Sacral ulcer Encounter for pre-operative examination Bacteremia due to Gram-positive bacteria Troponin level elevated Acute hyperglycemia (Acute) Hypoxia (Acute) Aspiration pneumonia of right upper lobe (Acute) Sepsis (Acute) Diabetes mellitus Cardiomyopathy Nausea and vomiting GERD (gastroesophageal reflux disease) Hypotension Sepsis Urinary tract infection Acute respiratory failure with hypoxia Aspiration pneumonia Current use of proton pump inhibitor Lower urinary tract symptoms (LUTS) Incomplete emptying of bladder Urinary symptom or sign Systolic CHF, chronic PARDO (dyspnea on exertion) Pulsatile tinnitus of both ears R>L Sensorineural hearing loss of both ears Abnormal finding of foot H/O: stroke Hand arthritis Abdominal discomfort REASON FOR UPCOMING PROCEDURE: DISCOMFORT BLADDER OR COLON AREA / CAN'T DIFFERENTIATE WHERE FROM RESOLVED OVER LAST FEW WEEKS Need for cardiac rehabilitation intervention [facility] Dark stools S/P CABG x 3 05/2022>psu gina Atypical chest pain Cardiomyopathy follows Dr. Nydeggar Orthostatic hypotension Pacemaker Sacral decubitus ulcer CAD (coronary artery disease) CABG x3 (05/2022) Gait instability Biochemically recurrent malignant neoplasm of prostate Mobitz type 1 second degree AV block Carotid artery stenosis Esophageal dysphagia Dysuria Ganglion, finger joint of left hand Right rotator cuff tear Dyslipidemia 1st degree AV block IVCD (intraventricular conduction defect) Status post placement of implantable loop recorder Vitamin D deficiency Stage III chronic kidney disease Spinal stenosis of lumbar region S/P knee replacement Obesity (BMI 30.0-34.9) Neuroendocrine tumor Memory loss Internal hemorrhoids Hypertension Esophageal stricture Enlarged prostate with lower urinary tract symptoms (LUTS) Disc degeneration, lumbar Diabetic peripheral neuropathy Controlled type 2 diabetes mellitus with chronic kidney disease Chronic knee pain Cerebrovascular disease Carotid artery stenosis Benign paroxysmal positional vertigo Benign colonic polyp Asthma Anemia Hemorrhagic cystitis (~03/22/23) Hypercholesteremia TIA (transient ischemic attack) (~2001) Medical History Thrombocytopenia History of aspiration pneumonia per note 2022 Asthma Rotator cuff tear right>being tx by [facility] (steroid injection) Mild cognitive disorder Kidney disease ? stage>followed by Dr. Hu Acid reflux Hx of basal cell carcinoma Depression Neuropathy CHF (congestive heart failure) Cardiomyopathy History of myocardial infarction 2021 Hyperlipidemia Hypertension Sacral ulcer Being treated by [facility] wound care>pressure ulcer "healing" BPH (benign prostatic hyperplasia) Hx: UTI (urinary tract infection) [facility] admission- sepsis 08/2023 Pacemaker Medtronic placed 05/2022>"placed d/t heart failure" Last check 04/10 JU[facility] Low iron Brain TIA ? TIA vs CVA (2001)- patient reports left sided weakness with occasional "toe drop" r/t 2001 event- reason for Plavix Orthostatic hypotension Arthritis Pancreatic tumor ? tumor/cyst- yearly surveillance imaging GERD (gastroesophageal reflux disease) History of asthma History of prostate cancer Treated with radiation, no surgery Syncope Remote hx years ago, has a loop recorder in place>no recent episodes Hypothyroidism Surgical History History of coronary artery bypass graft 2021>3 vessels at [place] History of prostate surgery radiation tx History of urologic surgery Rezum procedure History of anesthesia reaction Trouble coming out of knee replacement + CABG History of cardiac cath 02/2022- no stents > CABG x3 History of cataract surgery right/left History of esophagogastroduodenoscopy (EGD) H/O colonoscopy with polypectomy [place] teeth removed S/P lumbar laminectomy History of loop recorder History of knee replacement Right History of tonsillectomy and adenoidectomy H/O hernia repair As toddler Hx of cholecystectomy Family History Brother Colon cancer Prostate cancer Grandfather Rectal cancer Unknown Cancer Mother Diabetes Congestive heart failure Stroke Hypertension Heart disease Grandmother (Paternal) Stroke Grandfather (Maternal) Myocardial infarction Other No family history of adverse response to anesthesia No family history of bleeding disorder Denies family history of Ovarian cancer Breast cancer Social History Smoking Status: Former smoker Tobacco Type: Pipe Cigarettes Per Day: One pipe per day; Second Hand Exposure: No; Do You Dip or Chew Tobacco: No; Hx Alcohol Use: No Hx Substance Use: No Preferred Language: Luxembourgish Communication Ability: Effective Visual Impairment: No Limitations Hearing Ability: Use of Hearing Aid Power Equipment Mechanics Instructor Required: No Beliefs That Will Affect Care: None marital status: Current Living Situation: Spouse current occupational status: retired current occupation: Retired How many Children do You have: 3 Other Information That Helps Us Care for You: No Feels Safe at Home: Yes Safety Concerns: Feels Safe At This Time Childhood Exposure to Second-Hand Smoke: Yes Diet: gluten free and lactose free caffeine: No Dental Care, Regularly: Yes Physical Activity Frequency: Daily Seatbelt Use: always Sunscreen Use: Yes Assistive Devices: Glasses, Hearing Aid - Bilateral and Walker Physical Exam Physical Exam: General: Obtunded. Opens eyes transiently to noxious stimuli does not answer questions. HEENT: Atraumatic, normocephalic. Pulm: Coarse diffusely with rhonchi and bibasilar crackles. On NIV Cardiac: RRR, -mrg. Radial pulses intact and symmetrical. Abdominal: Nontender, nondistended, soft. BS present. Extremities: No lower extremity edema. No calf asymmetry Results & Data Results & Data Vital Signs (Past 12 Hours) Vital Signs Temp Pulse Pulse Resp BP BP Pulse Ox 09/24/24 10:03 93 H 24 161/101 H 97 09/24/24 09:34 100 H 09/24/24 09:33 97 H 22 98 09/24/24 09:27 99 H 31 H 98 09/24/24 09:26 36.9 C 95 H 22 98 09/24/24 09:26 98 09/24/24 09:26 36.9 C 95 H 22 162/115 H 98 09/24/24 09:26 O2 Del Method FiO2 09/24/24 10:03 CPAP 35 09/24/24 09:34 09/24/24 09:33 CPAP 09/24/24 09:27 35 09/24/24 09:26 CPAP 09/24/24 09:26 CPAP 09/24/24 09:26 CPAP 09/24/24 09:26 CPAP PG Care Time/CCT Total # of Minutes Spent Total Time Spent with Patient: Total time spent is greater than 50% in coordination of care (as documented) at patient's floor/unit and/or counseling patient: Coding Level of Care Code 90374 INT INP/OBS CARE 3/75MIN Diagnoses Comfort measures only status Z51.5 Acute respiratory failure with hypoxia J96.01 Aspiration pneumonia J69.0 (HFpEF) heart failure with preserved ejection fraction I50.30 SAH (subarachnoid hemorrhage) I60.9
[2024-09-24 11:39] LABS: iSTAT Arterial Blood Gas HCO3 20 meg/L (19-24); iSTAT Arterial Blood Gas pCO2 46 mmHg (35-46); iSTAT Arterial Blood Gas pH 7.24 (7.35-7.45); iSTAT Arterial Blood Gas pO2 60 mmHg (80-95); iSTAT Carbon Dioxide 21 mmol/L (24-31); iSTAT Hematocrit 25 % (42-52); iSTAT Hemoglobin 8.5 g/dl (14.0-18.0); iSTAT Potassium 3.6 mmol/L (3.3-5.0); iSTAT Sample Type Arterial; iSTAT Sodium 147 mmol/L (135-144)
[2024-09-24] MEDS: SODIUM CHLOR 0.45% + 20MEQ KCL 20 MEQ/1,000 ML BAG IV SCH (11:57)
[2024-09-24] MEDS: metroNIDAZOLE 500 MG/100 ML BAG IV STA (12:32)
[2024-09-24 13:34] LABS: BUN Creatinine Ratio 19.1 (10-20); Calcium 8.8 mg/dl (8.6-10.3); Creatinine Clr Calc Pharmacy 31.4 ml/min; Potassium 3.8 mmol/L (3.5-5.1)
[2024-09-24 13:46] LABS: Troponin I High Sensitivity 100.2 pg/ml (0-20)
--- NOTE | 2024-09-24 13:47 | Ultrasound Report ---
BILATERAL LOWER EXTREMITY VENOUS DOPPLER CLINICAL HISTORY: r/o DVT high risk COMPARISON STUDY: Left lower extremity venous Doppler ultrasound January 30, 2023. TECHNIQUE: Sonography of the deep venous system of the bilateral lower extremities was performed. Co mpression and augmentation were evaluated. FINDINGS: The bilateral common femoral, superficial femoral and popliteal veins were compressible. A ugmentation was normal. Flow was shown within the deep calf vessels. IMPRESSION: No evidence of deep venous thrombus within the bilateral lower extremities. ACT 112: Negative or not required by law. Electronically signed by: Santi Faustin M.D. 09/24/2024 1:46 PM
--- OUTSIDE RECORDS SUMMARY | 2024-09-24 14:49 | External Medical Summary ---
Author Name Unknown Address Unknown Organization K09:[facility] [place] [address] Laboratory Report Ordering Provider Test Date Status RICKEY DANIELS 09/24/2024 07:00:29 Final Observation Date Value Abnormality Reference (Units ) Status WBC, Total 09/24/2024 07:00:29 14.58 Above high normal 4 .00-10.80 (K/uL) Final RBC 09/24/2024 07:00:29 3.67 4.50-5.25 (M/uL) Final Hemoglobin 09/24/2024 07:00:29 10.1 Below low normal 14 .0-16.8 (g/dL) Final HCT 09/24/2024 07:00:29 32.6 Below low normal 40. 0-48.4 (%) Final MCV 09/24/2024 07:00:29 88.8 82.0-99.5 (fL) Final MCH 09/24/2024 07:00:29 27.5 27.0-34.0 (pg) Final MCHC 09/24/2024 07:00:29 31.0 32.0-36.0 (g/dL) Final RDW 09/24/2024 07:00:29 16.4 11.5-15.5 (%) Final Platelets 09/24/2024 07:00:29 197 140-400 (K /uL) Final MPV 09/24/2024 07:00:29 11.6 6.6-11.1 ( fL) Final Performing Location [facility] [place] [address]
--- OUTSIDE RECORDS SUMMARY | 2024-09-24 14:49 | External Medical Summary | Summary of Care ---
Author Name Unknown Organization [facility] Address [address] [place] [address] Phone [phone] Care Team Providers Care Soda Flaker Name Role Phone Pro, Dick Tamayo MD Primary Care Provider +1- [phone] Reason for Visit * Reason Comments [facility] [employer] * Auth/Cert Specialty Diagnoses / Procedures Referred By Contmeghna t Referred To Contact [employer] [employer] [facility] [address] [place] [address] Referral ID Status Reason Start Date Expiration Date Visits Re quested Visits Authorized [id number] Encounter Details Date Type Department Care Team (Late st Contact Info) Description 09/17/2024 3:15 AM EDT [facility]ation [facility] [address] [place] [address] 4, [employer] [address] [place], [place] [id number] SAH (subarachnoid hemorrhage) ([facility])* Allergies Active Allergy Reactions Criticality Noted Date Comments Rosuvastatin Calcium Muscle pain 07/03/2013 Oxycodone Other (Please comment) 08/27/2018 Hallucinations Penicillin G Rash 07/03/2013 Sulfa Antibiotics Rash 07/03/2013 Tramadol Other (Please comment) 08/27/2018 Hallucinations Simvastatin 06/27/2016 Muscle pain and brain fog documented as of this encounter (statuses as of 09/21/2024) Medications Medication Sig Dispensed Refills Start Date End Date Status Aspirin 81 MG Tablet Take 81 mg by mouth daily. Active tamsulosin (FLOMAX) 0.4 MG Capsule daily. 05/24/2016 Active glimepiride (AMARYL) 4 MG Tablet Take 4 mg by mouth. Once a day 05/04/2016 Active Cholecalciferol (VITAMIN D3) 2000 UNITS Capsule Take 2,000 Units by mouth 2 times a day. Active Ubiquinol 100 MG CAPS Take by mouth daily. Active clopidogrel (PLAVIX) 75 MG Tablet Take 75 mg by mouth daily. Active quinapril (ACCUPRIL) 10 MG Tablet Take 10 mg by mouth at bedtime. Active Cyanocobalamin (VITAMIN B-12) 1000 MCG TabletIndications:Gel Cap Take 1,000 mcg by mouth daily. Indications: Gel Cap Active dutasteride (AVODART) 0.5 MG Capsule Take 0.5 mg by mouth daily. Active Clindamycin HCl 300 MG Capsule Take by mouth as needed. Prior to dental appointment Active finasteride (PROSCAR) 5 MG Tablet Take 5 mg by mouth daily. 3 06/07/2019 Active BD PEN NEEDLE LISA U/F 32G X 4 MM USE 1 ONCE DAILY 0 05/20/2019 Acti ve FREESTYLE LANCETS MISC USE TO CHECK GLUCOSE 4 TIMES DAILY 3 06/24/2019 Active levothyroxine (LEVOXYL) 50 MCG Tablet Take 50 mcg by mouth daily. 06/15/2020 Active pravastatin sodium (PRAVACHOL) 10 MG Tablet Take by mouth 20 mg daily . Twice a week Active Glucosamine Chondroitin Adv Oral Tablet Take 1 Tab by mouth 2 times a day. Active Trulicity 1.5 MG/0.5ML Subcutaneous Solution Pen-injector 06/25/2021 Act elgin Fludrocortisone Acetate 0.1 MG Oral Tablet (Florinef) 03/23/2022 Active Brimonidine Tartrate 0.2 % Ophthalmic Solution (Alphagan) 01/12/2022 Activ e Folic Acid 400 MCG Oral Tablet Take by mouth 400 mcg in the morning. Active Hydrocortisone 2.5 % External OintmentIndications:E rythema intertrigo Apply to buttocks rash as needed, max 2x a week at night, vaseline otherwise 15 g 1 03/26/2022 Active documented as of this encounter (statuses as of 09/21/2024) Active Problems Problem Noted Date Diagnosed Date Hx of actinic keratosis 06/27/2016 Hx of basal cell carcinoma 07/03/2013 Overview: R upper forehead 2008 documented as of this encounter (statuses as of 09/21/2024) Social History Tobacco Use Types Packs/Day Years Used Date Smoking Tobacco: Former Pipe Smokeless Tobacco: Never Alcohol Use Standard Drinks/Week Comments Yes 0 (1 standard drink = 0.6 oz pur e alcohol) rarely Utilities Answer Date Recorded Do you have trouble paying y our heating, water, or electric bill? (Adult - for ages 18 years and over) Not on file 05/05/2024 Is your family able to pay t he heat, water, or electric bill? (Household - for ages 0-17 years) Not on file 05/05/2024 Does your family have access to good internet? (Household - for ages 0-17 years) Not on file 05/05/2024 Social Connections Answer Date Recorded How often do you feel lonely or isolated from those around you? (Adult - for ages 18 years and over) Not on file 05/05/2024 Sex and Gender Information Value Date Recorded Sex Assigned at Not on file Gender Identity Not on file Sexual Orientation Not on file Job Start Date Occupation Industry Not on file Not on file Not on file documented as of this encounter Progress Notes * Shannon Souza RN - 09/18/2024 1:17 AM EDT MEDICARE AMBULANCE INFORMATION SHEET Patient Admitted as an Inpatient: yes Certifying Physician/Ordering Service:[facility] [place] - Connor Haddad M.D. [facility] [address] [place] [address] Point of Package Lift Operator (zip code required): Hospital - [facility] - [address] [facility] [address]; [place] [address] Destination (Specify Name/Address): [facility] - [address] [place] [address] ; [place] [address] Patient transported to nearest facility (capable of mgmt for Pt's condition): YES Total number of Loaded Miles: 73 miles Mode of Transport: Air Completed by: Shannon Souza RN documented in this encounter Plan of Treatment Health Maintenance Due Date Last Done Comments Depression Screening 1952 DTap/Tdap Vaccines (1 - Tdap) 1961 Pneumococcal Vaccine: 65+ Years (2 of 2 - PPSV23 or PCV20) 09/20/2016 09/20/2015, 10/18/2007 COVID-19 Vaccine (3 - season) 2024 01/13/2021, 12/23/2020 Influenza Vaccine (FLU shot) (#1) 2024 07/20/2020, 08/26/2019 TSH 05/12/2025 05/12/2024, 12/0 04/2023, 06/06/2022, Additional history exists Zoster Vaccines Completed 11/24/2019, 09/16/2019 HPV (Gardasil) Vaccine Aged Out No lo nger eligible based on patient's age to complete this topic Hepatitis B Vaccine Aged Out No longe r eligible based on patient's age to complete this topic MENINGOCOCCAL (MENACTRA/MENVEO) Aged Out No longer eligible based on patient's age to complete this topic documented as of this encounter Medical Devices Not on filedocumented as of this encounter Visit Diagnoses Diagnosis SAH (subarachnoid hemorrhage) (HCC)- Primary Subarachnoid hemorrhage documented in this encounter Care Teams Soda Flaker Relationship Specialty Start Date End Date Pro, Dick Tamayo MD [address] [place] [address] PCP - General Internal Medicine 07/01/17 documented as of this encounter
--- OUTSIDE RECORDS SUMMARY | 2024-09-24 14:49 | External Medical Summary | Summary of Care ---
Author Name Unknown Organization [facility] Address [address] [place] [address] Phone [phone] Care Team Providers Care Customer Service Correspondence Clerk Name Role Phone Pro, Dick Tamayo MD Primary Care Provider +1- [phone] Reason for Visit * Reason Comments [facility] [employer] * Auth/Cert Specialty Diagnoses / Procedures Referred By Contmeghna t Referred To Contact [employer] [place] [address] [place] [address] Referral ID Status Reason Start Date Expiration Date Visits Re quested Visits Authorized [id number] Encounter Details Date Type Department Care Team (Late st Contact Info) Description 09/17/2024 3:15 AM EDT Documentation [facility] [address] [place] [address] 4, [employer] [address] [place], [place] [phone] SAH (subarachnoid hemorrhage) ([facility])* Allergies Active Allergy Reactions Criticality Noted Date Comments Rosuvastatin Calcium Muscle pain 07/03/2013 Oxycodone Other (Please comment) 08/27/2018 Hallucinations Penicillin G Rash 07/03/2013 Sulfa Antibiotics Rash 07/03/2013 Tramadol Other (Please comment) 08/27/2018 Hallucinations Simvastatin 06/27/2016 Muscle pain and brain fog documented as of this encounter (statuses as of 09/24/2024) Medications Medication Sig Dispensed Refills Start Date [...] as of this encounter (statuses as of 09/24/2024) Active Problems Problem Noted Date Diagnosed Date Hx of actinic keratosis 06/27/2016 Hx of basal cell carcinoma 07/03/2013 Overview: R upper forehead 2008 documented as of this encounter (statuses as of 09/24/2024) Social History Tobacco Use Types Packs/Day Years [...] Admitted as an Inpatient: yes Certifying Physician/Ordering Service:[facility] [place] [facility] [place] - Connor Haddad M.D. [facility] [address] [place] [address] Point of Dowel Inspector (zip code required): Hospital - [facility] [place] - [address] [facility] [address]; [place] [address] Destination (Specify Name/Address): [facility] - [address] [place] [address] ; [place] [address] Patient transported to nearest facility (capable of [...] hemorrhage documented in this encounter Care Teams Customer Service Correspondence Clerk Relationship Specialty Start Date End Date Pro, Dick Tamayo MD [address] [place] [address] PCP - General Internal Medicine 07/01/17 documented as of this encounter
--- OUTSIDE RECORDS SUMMARY | 2024-09-24 14:49 | External Medical Summary | Summary of Care ---
Author Name Unknown Organization [facility] Address [address] [place] [address] Phone [phone] Care Team Providers Care Central Office Installer Name Role Phone Pro, Dick Tamayo MD Primary Care Provider +1- [phone] Reason for Visit * Reason Comments [facility] [employer] * Auth/Cert Specialty Diagnoses / Procedures Referred By Contmeghna t Referred To Contact [facility] [address] [place] [address] Referral ID Status Reason Start Date Expiration Date Visits Re quested Visits Authorized [id number] Encounter Details Date Type Department Care Team (Late st Contact Info) Description 09/17/2024 3:15 AM EDT [facility] [address] [place] [address] 4, [facility] [address] [place], [place] [phone] SAH (subarachnoid hemorrhage) ([facility])* Allergies Active Allergy Reactions Criticality Noted Date Comments Rosuvastatin Calcium Muscle pain 07/03/2013 Oxycodone Other (Please comment) 08/27/2018 Hallucinations Penicillin G Rash 07/03/2013 Sulfa Antibiotics Rash 07/03/2013 Tramadol Other (Please comment) 08/27/2018 Hallucinations Simvastatin 06/27/2016 Muscle pain and brain fog documented as of this encounter (statuses as of 09/23/2024) Medications Medication Sig Dispensed Refills Start Date [...] as of this encounter (statuses as of 09/23/2024) Active Problems Problem Noted Date Diagnosed Date Hx of actinic keratosis 06/27/2016 Hx of basal cell carcinoma 07/03/2013 Overview: R upper forehead 2008 documented as of this encounter (statuses as of 09/23/2024) Social History Tobacco Use Types Packs/Day Years [...] Admitted as an Inpatient: yes Certifying Physician/Ordering Service:[facility] [place] [facility] Physician - Connor aHddad M.D. [facility] [address] [place] [address] Point of Wildlife And Game Protector (zip code required): Hospital - [facility] - [address] [facility] [place]; [place] [address] Destination (Specify Name/Address): [facility] - [address] [place] [address] ; [place] [address] Patient transported to nearest facility (capable of [...] hemorrhage documented in this encounter Care Teams Central Office Installer Relationship Specialty Start Date End Date Pro, Dick Tamayo MD [address] [place] [address] PCP - General Internal Medicine 07/01/17 documented as of this encounter
--- OUTSIDE RECORDS SUMMARY | 2024-09-24 14:49 | External Medical Summary ---
Author Name Unknown Address Unknown Organization K09:[facility] [address] [place] [id number] Laboratory Report Ordering Provider Test Date Status RICKEY DANIELS 09/24/2024 07:00:29 Final Observation Date Value Abnormality Reference (Units ) Status BUN 09/24/2024 07:00:29 33 Above high normal 6-20 (mg/dL) Final Creatinine 09/24/2024 07:00:29 1.9 Above high normal 0.6-1.2 (mg/dL) Final Glomerular filtration rate/1.73 sq M.predicted [Volume Rate/Area] in Serum, Plasma or Blood by Creatinine-based formula (CKD-EPI) 09/24/2024 07:00:29 35 Below low normal >=60 (mL/min) Final eGFR is calculated based on the CKD-EPI 2020 equation. Sodium 09/24/2024 07:00:29 149 Above high normal 13 5-146 (mmol/L) Final Potassium 09/24/2024 07:00:29 3.7 3.5-5.1 (m mol/L) Final Cl 09/24/2024 07:00:29 114 Above high normal 98 -107 (mmol/L) Final CO2 09/24/2024 07:00:29 17 Below low normal 22- 32 (mmol/L) Final Anion gap 09/24/2024 07:00:29 18 Above high normal 7- 15 (mmol/L) Final Glucose 09/24/2024 07:00:29 212 Above high normal 70 -120 (mg/dL) Final Calcium 09/24/2024 07:00:29 8.6 8.4-10.2 ( mg/dL) Final Performing Location [facility] [place] [address]
--- OUTSIDE RECORDS SUMMARY | 2024-09-24 14:49 | External Medical Summary | Summary of Care ---
Author Name Unknown Organization [facility] Address [address] [place] [address] Phone [phone] Care Team Providers Care Neonatal Social Worker Name Role Phone Pro, Dick Tamayo MD Primary Care Provider +1- [phone] Reason for Visit * Reason Comments [facility] [employer] * Auth/Cert Specialty Diagnoses / Procedures Referred By Contmeghna t Referred To Contact [facility] [address] [place] [address] Referral ID Status Reason Start Date Expiration Date Visits Re quested Visits Authorized [id number] Encounter Details Date Type Department Care Team (Late st Contact Info) Description 09/17/2024 3:15 AM EDT [facility] [address] [place] [address] 4, [facility] [address] [place], [place] [phone] SAH (subarachnoid hemorrhage) ([facility])* Allergies Active Allergy Reactions Criticality Noted Date Comments Rosuvastatin Calcium Muscle pain 07/03/2013 Oxycodone Other (Please comment) 08/27/2018 Hallucinations Penicillin G Rash 07/03/2013 Sulfa Antibiotics Rash 07/03/2013 Tramadol Other (Please comment) 08/27/2018 Hallucinations Simvastatin 06/27/2016 Muscle pain and brain fog documented as of this encounter (statuses as of 09/22/2024) Medications Medication Sig Dispensed Refills Start Date [...] as of this encounter (statuses as of 09/22/2024) Active Problems Problem Noted Date Diagnosed Date Hx of actinic keratosis 06/27/2016 Hx of basal cell carcinoma 07/03/2013 Overview: R upper forehead 2008 documented as of this encounter (statuses as of 09/22/2024) Social History Tobacco Use Types Packs/Day Years [...] Admitted as an Inpatient: yes Certifying Physician/Ordering Service:[facility] [place] [facility] Physician - Connor Haddad M.D. [facility] [address] [place] [address] Point of Supervisor Kosher Dietary Service (zip code required): Hospital - [facility] - [address] [facility] [address]; [place] [address] Destination (Specify Name/Address): [facility] - [address] [place] [address] ; [place] [address] Patient transported to nearest facility (capable of [...] hemorrhage documented in this encounter Care Teams Neonatal Social Worker Relationship Specialty Start Date End Date Pro, Dick Tamayo MD [address] [place] [address] PCP - General Internal Medicine 07/01/17 documented as of this encounter
--- OUTSIDE RECORDS SUMMARY | 2024-09-24 14:50 | External Medical Summary | Summary of Care ---
Author Name Unknown Organization [facility] Address [address] [place] [address] Phone [phone] Care Team Providers Care Radial Drill Operator Name Role Phone Pro, Dick Tamayo MD Primary Care Provider +1- [phone] Reason for Visit * Reason Comments [facility] Encounter Details Date Type Department Care Team (Late st Contact Info) Description 09/17/2024 3:15 AM EDT Documentation [facility] [place] [address] [place] [address] 4, [facility] [address] [place], [place] [phone] SAH (subarachnoid hemorrhage) ([facility])* Allergies Active Allergy Reactions Criticality Noted Date Comments Rosuvastatin Calcium Muscle pain 07/03/2013 Oxycodone Other (Please comment) 08/27/2018 Hallucinations Penicillin G Rash 07/03/2013 Sulfa Antibiotics Rash 07/03/2013 Tramadol Other (Please comment) 08/27/2018 Hallucinations Simvastatin 06/27/2016 Muscle pain and brain fog documented as of this encounter (statuses as of 09/18/2024) Medications Medication Sig Dispensed Refills Start Date [...] as of this encounter (statuses as of 09/18/2024) Active Problems Problem Noted Date Diagnosed Date Hx of actinic keratosis 06/27/2016 Hx of basal cell carcinoma 07/03/2013 Overview: R upper forehead 2007 documented as of this encounter (statuses as of 09/18/2024) Social History Tobacco Use Types Packs/Day Years [...] an Inpatient: yes Certifying Physician/Ordering Service:[facility] [place] - Connor Haddad M.D. [facility] [place] [address] [facility] [place] [address] Point of Field Reporter (zip code required): Hospital - [facility] - [address] [facility] [address]; [place] [address] Destination (Specify Name/Address): [address] ; [place] [address] Patient transported to nearest facility (capable of [...] or PCV20) 09/20/2016 09/20/2015, 10/18/2007 COVID-19 Vaccine ( season) 2024 01/13/2021, 12/23/2020 Influenza Vaccine (FLU shot) (#1) 2024 07/20/2020, 08/26/2019 TSH 05/12/2025 05/12/2024, 12/04/2023, 06/06/2022, Additional history exists Zoster Vaccines Completed [...] hemorrhage documented in this encounter Care Teams Radial Drill Operator Relationship Specialty Start Date End Date Pro, Dick Tamayo MD [address] [place] [address] PCP - General Internal Medicine 07/01/17 documented as of this encounter
[2024-09-24 15:16] LABS: D Dimer 1190 ug/L FEU (0-500)
[2024-09-24 15:45] VITALS: BP 125/76; TEMP 98.2
[2024-09-24] MEDS: OPTIRAY 320 125ml IV ONE (16:48)
--- NOTE | 2024-09-24 17:10 | CT Scan Report ---
EXAM: CT Angiography Chest With Intravenous Contrast INDICATION: Cardiac arrhythmia with tachycardia. TECHNIQUE: Axial computed tomographic angiography images of the chest with intravenous contrast. Sagittal and coronal reformatted images were created and reviewed. This CT exam was performed using one or more of the following dose reduction techniques: automated exposure control, adjustment of the mA and/or kV according to patient size, and/or use of iterative reconstruction technique. MIP reconstructed images were created and reviewed. CONTRAST: 119ml of Optiray 320 was administered intravenously. COMPARISON: No relevant prior studies available. FINDINGS: Pulmonary arteries: There is motion artifact which limits assessment for pulmonary emboli. There appeared to be segmental and subsegmental emboli in the lower lobes left greater than right. No saddle pulmonary embolus. Aorta: No acute change noted. No thoracic aortic aneurysm or dissection. Lungs and pleural spaces: Small to moderate layering bilateral pleural effusions present. No pneumothorax. There is congestive failure and dependent consolidation in both lower lobes. There is near occlusion of the proximal bronchus intermedius. There is narrowing of the proximal right middle lobe segmental airway. There is thickening of all airways. No bronchiectasis. No visible honeycombing. There is compressive consolidation in both lower lobes. Heart: Cardiomegaly with cardiac pacing wires and loop recorder noted. Wires suboptimally assessed due to artifact. No pericardial effusion. No evidence of RV dysfunction. Mediastinum: There is diffuse esophageal thickening and paraesophageal edema in the mediastinum. No fluid collection or gas noted. Bones/joints: There is a necrotic mass or enhancing fluid collection anterior to the right coracoid extending along the anterior glenoid into the right axilla measuring 6 cm AP by 2.9 cm transverse by approximately 6 cm long. No associated gas or foreign body. Soft tissues: No abnormality noted. Lymph nodes: No abnormality noted. No enlarged lymph nodes. Gallbladder and bile ducts: Cholecystectomy. No ductal dilation or stone noted. Kidneys and ureters: Partially visualized cystic nodules left kidney. The visualized portions are simple. IMPRESSION: 1. There is motion artifact which limits assessment for pulmonary emboli. There appeared to be segmental and subsegmental emboli in the lower lobes left greater than right. 2. CHF. 3. Diffuse esophageal thickening and mediastinal edema concerning for mediastinitis. No mediastinal fluid collection noted. 4. Diffuse airway thickening and significant narrowing and mucus in the bronchus intermedius with multiple segments of right lower lobe airway occlusion. ACT 112: Positive. There are findings on this exam that require communication between the performing entity and the patient following Patient Test Result Information Act ([place] ACT 112) guidelines. Electronically signed by Lilibeth Castle 09-24-2024 5:10 PM
[2024-09-24 17:26] LABS: Base Excess VBG -9.8 mEq/L; HCO3 VBG 20 mmol/L; Oxygen Saturation VBG 63.5 %; PCO2 VBG 58 mmHg (38-50); PO2 VBG 41 mmHg; pH VBG 7.14 (7.36-7.41)
[2024-09-24 17:50] LABS: BUN Creatinine Ratio 18.6 (10-20); Calcium 8.4 mg/dl (8.6-10.3); Creatinine Clr Calc Pharmacy 29.8 ml/min; Potassium 4.7 mmol/L (3.5-5.1)
[2024-09-24] MEDS ORDERED: GLYCOPYRROLATE 0.2 MG/ML VIAL IV PRN (18:02)
[2024-09-24] MEDS ORDERED: ONDANSETRON INJ 2 MG/ML 2 ML VIAL IV PRN (18:02)
[2024-09-24] MEDS ORDERED: STAT IV Infusion **Titration per Protocol STA (18:02)
[2024-09-24] MEDS ORDERED: LORazepam 2 MG/1 ML VIAL IV PRN (18:02)
[2024-09-24] MEDS: LACTATED RINGER'S 1,000 ML IV SCH (19:16)
[2024-09-24] MEDS: HYDROmorphone 100 MG/100 ML BAG IV SCH (20:37)
[2024-09-24] MEDS: HYDROmorphone BOLUS from BAG IV PRN (20:38)
[2024-09-24] MEDS ORDERED: metroNIDAZOLE 500 MG/100 ML BAG IV SCH (22:00)
[2024-09-24 22:20] VITALS: PULSE 78; RESP 21; O2SAT 89
[2024-09-25] MEDS ORDERED: CEFEPIME 2000MG 2,000 MG/20 ML SYR IV SCH (00:15)
--- NOTE | 2024-09-25 02:35 | Death Pronouncement Note ---
Date of Service September 25, 2024 Pronouncement Note Admission Date Admission Date: September 24, 2024 Contributing Factors (1) Comfort measures only status: (2) Acute respiratory failure with hypoxia: (3) Aspiration pneumonia: (4) (HFpEF) heart failure with preserved ejection fraction: (5) SAH (subarachnoid hemorrhage): Summary Additional details: I was called to pronounce the of Sam Castillo :1940 by nursing on 09/25/2024. Upon entering the room, the patient was found to be in a terminal state. Patient was unresponsive to verbal and tactile stimuli. Patient unresponsive to pupillary reflexes. On cardiopulmonary exam, no carotid or radial pulses found and pt without spontaneous heart tones or respirations. Time of was pronounced by me on 09/25/2024 at 02:20. Attending physician was notified. Next of kin was notified by nursing. Additional Data Attending physician: Rolando Hernandes MD Resident Activity Tracking Resident Involvement: Resident Care Provided Care Provided: Adult Hospital Medicine
--- NOTE | 2024-09-25 02:37 | Discharge Summary ---
Date of Service September 25, 2024 Admission HPI Per Admitting Provider Sam is an 84-year-old male with past medical history of TIA, type II DM, CVA, CAD with CABG x 3, cardiomyopathy, diastolic CHF, anemia, SCC of the prostate, and recent admission to [facility] with discharge 1 day ago after he was admitted for a subarachnoid hemorrhage which occurred in the setting of a fall while on Plavix. Patient was followed by neurocritical care at [facility], right vertebral artery dissection was noted during that admission. At time of discharge 09/23/2024 if he was reportedly afebrile, ambulating, voiding spontaneously, tolerating p.o. and was discharged to skilled care. Subarachnoid hemorrhage remained stable on repeat imaging 09/19/2024 and blood pressure medicines were adjusted to maintain a systolic of less than 160 at that time. He presents to the ER 1 day later with increasing shortness of breath. Course at [facility] was complicated by aspiration while at [facility] but had otherwise looked well and had not been treated with antibiotics due to suspected pneumonitis without superimposed pneumonia at that time. He is recommended for admission for acute hypoxic respiratory failure suspect due to aspiration pneumonia +/- fluid overload due to interstitial pulmonary edema and small effusions noted on lung CT. No lobar pneumonia is noted on x-ray While at [facility] he was on SCDs, was not on chemical prophylaxis due to subarachnoid hemorrhage. He is tachycardic and hypoxic without a discrete aspiration pneumonia seen on chest x-ray, fluid congestion is noted Patient seen with his family at bedside. Patient is obtunded, is not able to answer any questions. No leg swelling, lungs are diminished. He does not awaken to noxious stimuli or follow commands Discussed with family. They would like conservative treatment with fluids for his hyponatremia and hydration, potential treatments of it underlying infection as able. Reviewed goals of care. They do confirm that he is DNR/DNI and would not want resuscitation in cardiopulmonary arrest and additionally if he had worsening respiratory status would not want progression to a ventilator/breathing tube. Reviewed ICU. Given his current progression they do not feel that aggressive interventions in the ICU would be within his goals and they do not want central lines or pressors should he clinically worsen. Goals of Care/Update 1800:D-dimer is elevated, subsequent CTA showed segmental and subsegmental PE,, Near occlusion of proximal bronchus, CHF with pleural effusions, in addition to a previously unknown necrotic mass/enhancing fluid collection at the anterior to right coracoid extended along the glenoid into the right axilla. Patient also with subsequent decline in respiratory status and repeat VBG with pH of 7.15 despite NIV. Case was discussed extensively with the patient's Corinne and daughter at the bedside. Patient was unable to contribute to conversation due to obtunded mental status. Various options were reviewed with patient's family. Patient's and daughter note that he would not want intubation or resuscitation in any circumstances, and would not want progression to any type of further surgical intervention. Given his progression with critical illness and subsequent development of blood clots in his lungs with treatment limited by recent intracranial bleed they would like to transition to comfort measures. Patient's Corinne reports that her top concern is that Sam is not in any pain or distress, and that he passes comfortably. Reviewed RAM CAR OPERATOR/hospice, and that RAM CAR OPERATOR involves focusing exclusively on patient's comfort and withdrawing all of her treatments including lab draws in anticipation of patient continuing to deteriorate and likely passing within the hospital. Patient's feels this is most consistent with her wishes and what Sam would want. Transition to RAM CAR OPERATOR. Patient is not alert enough to use a ORDER FILLER pump or request medication; palliative protocol hydromorphone drip ordered. Ativan ordered. Glycopyrrolate on-call, lab draws and other medications discontinued. Patient transferred to third floor. Do not expect that patient will recover/stabilize to the extent that he would be able to return home for hospice and anticipate passing as inpatient. Dramatic Coach consult offered, patient's and daughter declined this at time of bedside reassessment. Admission Exam Per Admitting Provider General: Obtunded. Opens eyes transiently to noxious stimuli does not answer questions. HEENT: Atraumatic, normocephalic. Pulm: Coarse diffusely with rhonchi and bibasilar crackles. On NIV Cardiac: RRR, -mrg. Radial pulses intact and symmetrical. Abdominal: Nontender, nondistended, soft. BS present. Extremities: No lower extremity edema. No calf asymmetry Principal Diagnosis acute hypoxic respiratory failure secondary to acute PE/aspiration PNA Discharge Exam Refer to pt's pronouncement note. Pt was in a terminal state w/o spontaneous heart or breath sounds. Discharge Data Allergies Allergy/AdvReac Type Severity Reaction Status Date / Time gluten Allergy Intermediate GI symptoms Verified 08/17/24 10:09 Penicillins Allergy Mild Rash Verified 08/17/24 10:09 Sulfa (Sulfonamide Allergy Mild Rash Verified 08/17/24 10:09 Antibiotics) cyclobenzaprine Allergy Unknown Unknown Verified 08/17/24 10:09 fosfomycin AdvReac Intermediate Dizziness Verified 08/17/24 10:09 oxycodone AdvReac Intermediate Hallucinati Verified 08/17/24 10:09 ons Mosbwcs-UHC-DwG Reductase AdvReac Intermediate Muscle Verified 08/17/24 10:09 Inhibitor weakness, [Yaufyyy-Wan-Btd Reductase brain fog Inhibitor] tramadol AdvReac Intermediate Hallucinati Verified 08/17/24 10:09 ons Consultations 09/24/24 10:44 ED Decision to Admit Stat 09/24/24 18:02 Consult Palliative Care Routine Ordered Studies 09/24/24 09:32 CT head/brain wo con Stat IMPRESSION: 1. Small to moderate amount of scattered acute subarachnoid hemorrhage, decreased in amount since CT of September 17, 2024. 2. No calvarial fractures. 09/24/24 11:20 US venous doppler LE BI Stat IMPRESSION: No evidence of deep venous thrombus within the bilateral lower extremities. 09/24/24 15:14 CT angio chest PE protocol Stat 1. There is motion artifact which limits assessment for pulmonary emboli. There appeared to be segmental and subsegmental emboli in the lower lobes left greater than right. 2. CHF. 3. Diffuse esophageal thickening and mediastinal edema concerning for mediastinitis. No mediastinal fluid collection noted. 4. Diffuse airway thickening and significant narrowing and mucus in the bronchus intermedius with multiple segments of right lower lobe airway occlusion. Hospital Course (1) Comfort measures only status: As admission A&P below suggests, pt's condition was discussed with family on admission and decision was made to pursue [facility] CAR OPERATOR. Pt overnight. Family was notified by nursing. Sam was admitted unresponsive, hypoxic, and with concern for volume overload and aspiration pneumonia. Patient was at high risk of DVT with immobilization although has just been discharged following a subarachnoid hemorrhage treated at [facility]. Patient was admitted with treatment for aspiration pneumonia, rehydration for hypernatremia and reported poor p.o. intake, and assessment of underlying hypoxic respiratory failure. Patient was high risk for DVT with multiple recent risk factors not on pharmacal prophylaxis due to subarachnoid hemorrhage. D-dimer is elevated, subsequent CTA showed segmental and subsegmental PE,, Near occlusion of proximal bronchus, CHF with pleural effusions, in addition to a previously unknown necrotic mass/enhancing fluid collection at the anterior to right coracoid extended along the glenoid into the right axilla. Patient also with subsequent decline in respiratory status and repeat VBG with pH of 7.15. Case was discussed extensively with the patient's Corinne and daughter at the bedside. Patient was unable to contribute to conversation due to obtunded mental status. Various options were reviewed with patient's family. Patient's and daughter note that he would not want intubation or resuscitation in any circumstances, and would not want progression to any type of further surgical intervention. Given his progression with critical illness and subsequent development of blood clots in his lungs with treatment limited by recent intracranial bleed they would like to transition to comfort measures. Patient's Corinne reports that her top concern is that Sam is not in any pain or distress, and that he passes comfortably. Reviewed RAM CAR OPERATOR/hospice, and that RAM CAR OPERATOR involves focusing exclusively on patient's comfort and withdrawing all of her treatments including lab draws in anticipation of patient continuing to deteriorate and likely passing within the hospital. Patient's feels this is most consistent with her wishes and what Sam would want. Transition to RAM CAR OPERATOR. Patient is not alert enough to use a ORDER FILLER pump or request medication; palliative protocol hydromorphone drip ordered. Ativan ordered. Glycopyrrolate on-call, lab draws and other medications discontinued. Patient transferred to third floor. Do not expect that patient will recover/stabilize to the extent that he would be able to return home for hospice and anticipate passing as inpatient. Dramatic Coach consult offered, patient's and daughter declined this at time of bedside reassessment. (2) Acute respiratory failure with hypoxia: Acute hypoxic respiratory failure 2/2 CHF, acute pulmonary emboli, +/- aspiration pneumonia Patient with aspiration event at [facility]. Does have a leukocytosis at 18 Covered for potential aspiration pneumonia with cefepime/Flagyl. MRSA nare negative. Clinically appears volume contracted does not have lower extremity edema but does have evidence of pulmonary edema on chest x-ray. BNP is elevated Is at high risk of DVT, patient was recently hospitalized at [facility] and has not been able to receive pharmacal prophylaxis for DVT due to subarachnoid hemorrhage. Initially was tachycardic and hypoxic, tachycardia is improving post fluids hypoxia persists. Lower extremity Dopplers are pending there is no calf asymmetry. Patient and family do not wish for intubation Procalcitonin is negative BMP is >4000 Lactate is 1.1 (3) Aspiration pneumonia: Treated with cefepime/Flagyl initially. Subsequently transition to RAM CAR OPERATOR. Patient also with a necrotic mass/fluid collection noted. Family does not wish to have any type of fluid aspiration or biopsy performed for diagnostic or therapeutic purposes and would like to focus exclusively on patient's comfort. (4) (HFpEF) heart failure with preserved ejection fraction: With history of CABG Last EF 45-50% 2021 Entresto held EKG on admission is with right bundle redemonstrated; sinus; no acute ST/T wave changes Patient with evidence of pulmonary edema and bilateral pleural effusions. Additionally BNP is markedly elevated, although patient is also with renal dysf unction. Given poor p.o. intake, concurrent infection will defer diuresis to treatment of potential infections and follow-up CT prior to adding in Lasix CTA with evidence of congestive failure as noted Transitioned to RAM CAR OPERATOR (5) SAH (subarachnoid hemorrhage): CThead stable/improving compared to prior. No evidence of recurrent or worsening bleed. Discharged from [facility] 09/23/2024 - Troponin elevated 117, downtrending at 100 on repeat. Suspect demand Transition to RAM CAR OPERATOR, see above Total Time Total Time Spent Total Time Spent (In Minutes): as per attending attestation Discharge Plan Discharge Items Patient Disposition: Other Date/Time: 09/25/24 02:20 Supervising Physician Co-Signing Physician Notes Patient was not seen day of expiry as he passed overnight and was pronounced by resident provider. Reviewed overnight course and documentation, agree with above. Resident Activity Tracking Resident Involvement: Resident Care Provided Care Provided: Adult Hospital Medicine
[2024-09-25] MEDS ORDERED: FUROSEMIDE 40 MG/4 ML VIAL IV SCH (09:00)
== END 2024-09-25 04:15 | disposition expired | DRG 951 ==
LOC: ED 09:20 → 2S 13:30 → 3N 20:06
DX: Z95.1 Presence of aortocoronary bypass graft; I26.93 Single subsegmental thrombotic pulmonary embolism without acute cor pulmonale; E87.0 Hyperosmolality and hypernatremia; I25.10 Atherosclerotic heart disease of native coronary artery without angina pectoris; Z87.440 Personal history of urinary (tract) infections; Z88.8 Allergy status to other drugs, medicaments and biological substances; Z95.5 Presence of coronary angioplasty implant and graft; Z51.5 Encounter for palliative care; I13.0 Hypertensive heart and chronic kidney disease with heart failure and stage 1 through stage 4 chronic kidney disease, or unspecified chronic kidney disease; Z88.2 Allergy status to sulfonamides; Z96.651 Presence of right artificial knee joint; Z79.84 Long term (current) use of oral hypoglycemic drugs; J45.909 Unspecified asthma, uncomplicated; R33.8 Other retention of urine; Z99.89 Dependence on other enabling machines and devices; Z83.3 Family history of diabetes mellitus; N40.1 Benign prostatic hyperplasia with lower urinary tract symptoms; Z88.1 Allergy status to other antibiotic agents; Z95.0 Presence of cardiac pacemaker; Z88.0 Allergy status to penicillin; E11.40 Type 2 diabetes mellitus with diabetic neuropathy, unspecified; J69.0 Pneumonitis due to inhalation of food and vomit; I50.33 Acute on chronic diastolic (congestive) heart failure; N18.30 Chronic kidney disease, stage 3 unspecified; Z79.890 Hormone replacement therapy; Z86.73 Personal history of transient ischemic attack (TIA), and cerebral infarction without residual deficits; C67.9 Malignant neoplasm of bladder, unspecified; Z79.899 Other long term (current) drug therapy; Z85.46 Personal history of malignant neoplasm of prostate; Z92.3 Personal history of irradiation; Z87.891 Personal history of nicotine dependence; E11.22 Type 2 diabetes mellitus with diabetic chronic kidney disease; Z88.5 Allergy status to narcotic agent; J96.01 Acute respiratory failure with hypoxia; Z79.02 Long term (current) use of antithrombotics/antiplatelets